=== PATIENT | male | born 1975 | race Caucasian/White ===

== ENCOUNTER → 2018-10-23 13:15 | Outpatient (CLI) | payer MEDICARE, OTHER, SELFPAY ==
[2018-10-23 13:35] LABS: Basophils % 0.3 % (0.1-2.0); Eosinophils # 0.1 K/mm3 (0.0-0.4); Eosinophils % 3.3 % (0.1-12.0); Hematocrit 37.8 % (42.0-52.0); Hemoglobin 13.6 g/dL (14.1-18.0); Lymphocytes # 0.9 K/mm3 (0.7-4.5); Lymphocytes % 25.5 % (10-50); Mean Corpuscular HGB Conc 36.1 g/dL (31.8-35.4); Mean Corpuscular Hemoglobin 33.9 pg (27.0-31.2); Mean Platelet Volume 7.9 fl (7.4-10.4); Monocytes # 0.3 K/mm3 (0.1-1.0); Monocytes % 7.7 % (1.7-9.3); Neutrophils # 2.2 K/mm3 (1.8-7.8); Neutrophils % 63.2 % (37.0-80.0); Platelet Count 66 K/mm3 (142-424); Red Blood Count 4.02 M/mm3 (4.60-6.20); Red Cell Distribution Width 15.1 % (11.5-17.5); White Blood Count 3.4 K/mm3 (4.8-10.8)
[2018-10-23 15:11] LABS: Alanine Aminotransferase 36 U/L (12-78); Albumin Level 3.3 gm/dL (3.4-5.0); Albumin/Globulin Ratio 0.9 (1.1-1.8); Alkaline Phosphatase 172 U/L (46-116); Anion Gap 14.1 mEq/L (5-15); Aspartate Amino Transferase 54 U/L (15-37); Blood Urea Nitrogen 9 mg/dL (7-18); Calcium 8.5 mg/dL (8.5-10.1); Carbon Dioxide 25 mmol/L (21.0-32.0); Chloride 104 mmol/L (98-107); Chol/HDL Ratio 1.5 (1-3.5); Cholesterol 131 mg/dL (140-200); Creatinine,Serum 0.67 mg/dL (0.70-1.30); Estimated Glomerular Filt Rate 128 ml/min (>60); GFR (African American) 155 ML/MIN (>60); Globulin 3.7 gm/dl (1.3-3.2); Glucose 126 mg/dL (74-106); HDL Cholesterol 89 mg/dL (27-67); LDL Cholesterol 37 mg/dL (0-130); Potassium 3.1 mmoL/L (3.5-5.1); Sodium 140 mmol/L (136-145); T4 (Thyroxine) 6.6 ug/dl (4.7-13.3); Thyroid Stimulating Hormone 7.12 uIU/ml (0.358-3.740); Triglycerides 26 mg/dL (30-200); VLDL Cholesterol 5 mg/dL (0-40)
[2018-10-24 08:31] LABS: Hep A Ab, IgM Negative (Negative); Hepatitis B Core Antibody IgM Negative (Negative); Hepatitis B Surface Antigen Negative (Negative)
[2018-10-24 15:04] LABS: Hepatitis C Antibody 5.2 s/co ratio (0.0-0.9)
[2018-10-24 15:06] LABS: Vitamin D 25 Hydroxy 17.5 ng/mL (30.0-100.0)
[2018-10-29 03:36] LABS: 1,25-Dihydroxy, Vitamin D-2 <10 pg/mL (.)
[2018-10-29 06:11] LABS: 1,25 Dihydroxy Vitamin D 37 pg/mL (.); 1,25-Dihydroxy, Vitamin D-3 37 pg/mL (.)
== END ==
PROVIDERS: Visit Provider Physician Assistant
DX: I10 Essential (primary) hypertension (principal); R53.83 Other fatigue; K74.60 Unspecified cirrhosis of liver; E55.9 Vitamin D deficiency, unspecified; R76.8 Other specified abnormal immunological findings in serum; R94.5 Abnormal results of liver function studies
CPT/HCPCS: 80053; 80061; 80074; 82652; 84436; 84439; 84443; 85025; 87522

== ENCOUNTER 2020-01-17 14:28 | Inpatient (IN) | payer MEDICARE, SELFPAY ==
[2020-01-17] VITALS (7 sets, daily range): BP systolic 130–163; BP diastolic 64–104; PULSE 78–100; RESP 16–20; TEMP 36.6–37.7; O2SAT 97–99; BMI 41.3; BMI 39.9
--- NOTE | 2020-01-17 14:52 | HMH.EDGENADL ---
ED Disposition Clinical Impression: Cellulitis Qualifiers: Site of cellulitis: extremity Site of cellulitis of extremity: lower extremity Laterality: right Qualified Code(s): L03.115 - Cellulitis of right lower limb Hypertension Qualifiers: Hypertension type: essential hypertension Qualified Code(s): I10 - Essential (primary) hypertension Disposition: Admitted As Inpatient Condition on Discharge: [facility] - Critical Care Critical Care Time: No Attestation: On 01/17/20, the high probability of a clinically significant, sudden or life threatening deterioration of the following system(s) required my full and direct attention, intervention and personal management. The time I documented below is in addition to time spent performing reported procedures but includes the following listed in this critical care notation. Medical Decision Making - Joshua Inquiry Pt receiving controlled substance: Yes Joshua was queried for this patient: Yes Reference #:: [id number] Risks and benefits of using a controlled substance: were discussed with pt by me Vital Signs: 01/17/20 14:29 01/17/20 15:51 01/17/20 16:24 Temperature 100 F H Temperature Source Oral Pulse Rate [Left Radial] 100 H 89 88 Respiratory Rate 18 Blood Pressure [Right Arm] 144/77 H 130/80 144/88 H Blood Pressure Mean [Right Arm] 99 96 106 Blood Pressure Source [Right Arm] Blood Pressure Position [Right Arm] Sitting Sitting 02 Sat by Pulse Oximetry 98 Oxygen Delivery Method Room Air 01/17/20 16:32 Temperature Temperature Source Pulse Rate [Left Radial] 85 Respiratory Rate 20 Blood Pressure [Right Arm] 152/86 H Blood Pressure Mean [Right Arm] 108 Blood Pressure Source [Right Arm] Automatic Cuff Blood Pressure Position [Right Arm] Sitting 02 Sat by Pulse Oximetry 97 Oxygen Delivery Method - Lab Data Lab Results 01/17/20 15:15: WBC 2.9 L, RBC 3.37 L, Hgb 11.2 L, Hct 34.3 L, MCV 101.7 H, MCH 33.1 H, MCHC 32.6, RDW 13.9, Plt Count 87 L, MPV 9.5, Neut % (Auto) 62.9, Lymph % (Auto) 23.3, [place] % (Auto) 9.3, Eos % (Auto) 3.3, Baso % (Auto) 1.1, Neut # (Auto) 1.9, Lymph # (Auto) 0.7, [place] # (Auto) 0.3, Eos # (Auto) 0.1, Baso # (Auto) 0.0 01/17/20 15:15: Sodium 118 L, Potassium 3.6, Chloride 108 H, Carbon Dioxide 27, Anion Gap -13.4 L, BUN 7 L, Creatinine 0.60 L, Estimated Creat Clear 154, Estimated GFR 145, Est GFR ( Amer) 176, Glucose 92, Calcium 8.0 L, Total Bilirubin 2.6 H, AST 103 H, ALT 47, Alkaline Phosphatase 225 H, C-Reactive Protein 40.9 H, Total Protein 8.3 H, Albumin 3.1 L, Globulin 5.2 H, Albumin/Globulin Ratio 0.6 L 01/17/20 15:15: Lactate 1.3 Result diagrams: 01/17/20 15:15 01/17/20 15:15 Orders (Tests/Meds): ED MEDICATIONS Generic Name Dose Route Start Last Admin Trade Name Freq PRN Reason Stop Dose Admin Acetaminophen 650 mg 01/17/20 17:08 Acetaminophen 325mg Tab PO 02/16/20 17:07 Q4HP PRN As Needed for Fever or Pain Lisinopril/HCTZ 1 each 01/18/20 09:00 Zestoretic 10/12.5mg Tablet PO 02/17/20 08:59 DAILY CJ Nicotine 21 mg 01/17/20 17:08 Nicoderm 21mg/24hr Patch TD 02/16/20 17:07 DAILYP PRN Nicotine Cravings Oxycodone HCl 5 mg 01/17/20 17:12 Oxyir 5mg Tablet PO 02/16/20 17:11 Q6HP PRN Severe Pain Discontinued Medications Generic Name Dose Route Start Last Admin Trade Name Freq PRN Reason Stop Dose Admin Vancomycin HCl 2,500 mg/ 250 mls @ 125 mls/hr 01/17/20 15:15 01/17/20 15:50 Sodium Chloride IV 01/17/20 17:14 125 mls/hr ONCE ONE Administration Sodium Chloride 1,000 mls @ 999 mls/hr 01/17/20 15:30 01/17/20 15:51 Sod Chlor 0.9% 1000ml Bag IV 01/17/20 16:30 999 mls/hr .Q1H1M CJ Administration Ioversol 100 ml 01/17/20 15:40 01/17/20 15:41 Rad-Optiray 350 100ml Vial IV 01/17/20 15:41 100 ml ONCE ONE Administration Protocol Ketorolac Tromethamine 15 mg 01/17/20 15:17 01/17/20 15:19 Toradol 30mg/Ml Vial IV
--- NOTE | 2020-01-17 14:56 | CT_ITS ---
PROCEDURE: CT LOWER LEG RT W CON CLINICAL HISTORY: pain, infection, concern for NSTI Pain redness and swelling COMPARISON: XR TIBIA FIBULA RT 2V from 01/17/2020 TECHNIQUE: 100 mL Optiray 350 Axial images obtained with sagittal and coronal reformats. All CT scans at the facility use one or more dose reduction, viz: automated exposure control, ma/kV adjustment per patient size (including targeted exams where dose is matched to indication, i.e. head), or iterative reconstruction technique. FINDINGS: There is diffuse subcutaneous soft tissue swelling involving the entire right leg extending from the image portion of the knee to the ankle. No localized fluid collection is evident that would indicate an abscess. No soft tissue gas apparent. No focal muscular mass. There is a small suprapatellar effusion. There are mild osteoarthritic changes at the knee joint with subarticular cystic changes at the tibial spine laterally. No fracture or dislocation. No lytic or blastic change. No evidence of radiopaque foreign body. IMPRESSION: Diffuse subcutaneous edema of the right leg with no drainable fluid collection, muscular mass or hematoma, or osteomyelitis. There are mild osteoarthritic changes at the knee. Dictated by: Jonnathan Meredith MD 01/17/2020 16:10 Electronically signed by Jonnathan Meredith MD in [place] 01/17/2020 16:10
--- NOTE | 2020-01-17 14:58 | XR_ITS ---
PROCEDURE: XR TIBIA FIBULA RT 2V CLINICAL INDICATION: leg pain COMPARISON: No exams were available for comparison FINDINGS: There is diffuse soft tissue swelling. No fracture or dislocation. No lytic or blastic change. No radiopaque foreign body. Hyperostosis is present at the medial femoral condyle region IMPRESSION: Diffuse soft tissue swelling otherwise negative Dictated by: Jonnathan Meredith MD 01/17/2020 17:02 Electronically signed by Jonnathan Meredith MD in [place] 01/17/2020 17:02
--- NOTE | 2020-01-17 15:15 | PC.NURSE ---
Pharmacy notified for vanc consult
[2020-01-17 15:46] LABS: Basophils % 1.1 % (0.1-2.0); Eosinophils # 0.1 K/mm3 (0.0-0.4); Eosinophils % 3.3 % (0.1-12.0); Hematocrit 34.3 % (42.0-52.0); Hemoglobin 11.2 g/dL (14.1-18.0); Lymphocytes # 0.7 K/mm3 (0.7-4.5); Lymphocytes % 23.3 % (10-50); Mean Corpuscular HGB Conc 32.6 g/dL (31.8-35.4); Mean Corpuscular Hemoglobin 33.1 pg (27.0-31.2); Mean Corpuscular Volume 101.7 fl (80-94); Mean Platelet Volume 9.5 fl (7.4-10.4); Monocytes # 0.3 K/mm3 (0.1-1.0); Monocytes % 9.3 % (1.7-9.3); Neutrophils # 1.9 K/mm3 (1.8-7.8); Neutrophils % 62.9 % (37.0-80.0); Platelet Count 87 K/mm3 (142-424); Red Blood Count 3.37 M/mm3 (4.60-6.20); Red Cell Distribution Width 13.9 % (11.5-17.5); White Blood Count 2.9 K/mm3 (4.8-10.8)
[2020-01-17 15:49] LABS: Chloride 108 mmol/L (98-107); Sodium 118 mmol/L (136-145)
[2020-01-17 15:50] LABS: Potassium 3.6 mmoL/L (3.5-5.1)
[2020-01-17 15:52] LABS: Alanine Aminotransferase 47 U/L (12-78); Albumin Level 3.1 g/dl (3.5-5.0); Albumin/Globulin Ratio 0.6 (1.1-1.8); Alkaline Phosphatase 225 U/L (38-126); Anion Gap -13.4 mEq/L (5-15); Aspartate Amino Transferase 103 U/L (17-59); Bilirubin,Total 2.6 mg/dl (0.2-1.3); Blood Urea Nitrogen 7 mg/dl (9-20); Carbon Dioxide 27 mmol/L (22.0-30.0); Creatinine Clearance Estimated 154 mL/min (50-200); Estimated Glomerular Filt Rate 145 ml/min (>60); GFR (African American) 176 ML/MIN (>60); Globulin 5.2 g/dL (1.3-3.2); Glucose 92 mg/dl (74-100); Lactic Acid 1.3 mmol/L (0.7-2.1); Total Protein,Serum 8.3 g/dl (6.3-8.2)
[2020-01-17 15:58] LABS: C-Reactive Protein 40.9 mg/L (0-4)
--- NOTE | 2020-01-17 16:58 | PC.NURSE ---
pt with localized redness and itching to rt hand around IV site. vanc stopped. aware
--- NOTE | 2020-01-17 17:02 | PC.NURSE ---
dr kimo meeks
--- NOTE | 2020-01-17 17:14 | PC.NURSE ---
pt recieved 143cc of vanc
--- NOTE | 2020-01-17 17:38 | PC.NURSE ---
report called to floor
--- NOTE | 2020-01-17 19:11 | PC.NURSE ---
report given to karolina
[2020-01-18 04:00] VITALS: BP 155/84; PULSE 83; RESP 20; TEMP 36.9; O2SAT 95
[2020-01-18 05:00] VITALS: BMI 40.1
[2020-01-18 07:43] VITALS: BP 146/74; PULSE 78; RESP 18; TEMP 36.8; O2SAT 97
--- NOTE | 2020-01-18 08:41 | P.CONPHA_ITS ---
- Pharmacy Consult Date: 01/18/20 Time: 08:41 Referring provider: DR. ROPER Reason for Consult:: VANCOMYCIN DOSING Allergies and ADEs:: Allergies Allergy/AdvReac Type Severity Reaction Status Date / Time codeine Allergy Hives Verified 01/18/20 08:25 guaifenesin [From Mucinex] Allergy SWELLS Verified 01/18/20 08:25 ketorolac [From Toradol] Allergy Migraine Verified 01/18/20 08:25 Home Medications:: Home Medications Medication Instructions Recorded Confirmed Type No Known Home Medications 01/17/20 01/17/20 History Height: 1.75 m Weight: 122.952 kg Laboratory Results:: Laboratory Results - last 24 hr 01/17/20 15:15: WBC 2.9 L, RBC 3.37 L, Hgb 11.2 L, Hct 34.3 L, MCV 101.7 H, MCH 33.1 H, MCHC 32.6, RDW 13.9, Plt Count 87 L, MPV 9.5, Neut % (Auto) 62.9, Lymph % (Auto) 23.3, [place] % (Auto) 9.3, Eos % (Auto) 3.3, Baso % (Auto) 1.1, Neut # (Auto) 1.9, Lymph # (Auto) 0.7, [place] # (Auto) 0.3, Eos # (Auto) 0.1, Baso # (Auto) 0.0 01/17/20 15:15: Sodium 118 L, Potassium 3.6, Chloride 108 H, Carbon Dioxide 27, Anion Gap -13.4 L, BUN 7 L, Creatinine 0.60 L, Estimated Creat Clear 154, Estimated GFR 145, Est GFR ( Amer) 176, Glucose 92, Calcium 8.0 L, Total Bilirubin 2.6 H, AST 103 H, ALT 47, Alkaline Phosphatase 225 H, C-Reactive Protein 40.9 H, Total Protein 8.3 H, Albumin 3.1 L, Globulin 5.2 H, Albumin/Globulin Ratio 0.6 L 01/17/20 15:15: Lactate 1.3 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 PATIENT RECEIVED A 2500 MG DOSE YESTERDAY AND A 1500 MG DOSE THIS MORNING. PHARMACY WILL FOLLOW DAILY AND ADJUST APPROPRIATE.
--- NOTE | 2020-01-18 09:10 | HMH.HP ---
*Admission Date: 01/18/20 *Chief complaint: swollen leg *History of present illness: this wm who has progressive swelling rt lower leg presented to ed - t removed upper rt leg in the winter and has had problems since. pt states he was just admitted last week at and given IV antibiotics. rt leg with redness, swelling noted. pt states he has also been seen at [facility] within the past few weeks 44-year-old male presenting to the emergency department with right leg pain. He has had pain for the last few weeks but it became very intense over the last 2 days. Pain is constant, throbbing. His right lower leg is red, swollen, has blisters. He now has difficulty walking. Usually ambulates with a cane. He was recently hospitalized at the [facility] and received IV antibiotics. He is not on antibiotics currently. Denies pain in his groin. Does not take blood thinners. Denies fevers, chills, nausea, vomiting. No history of DVT or PE. n summary this is a 44-year-old male presenting to the emergency department with painful redness and swelling to his right lower leg. Patient appears uncomfortable on arrival to the emergency department. He is tachycardic to 100. Differential diagnoses include cellulitis, peripheral vascular disease, abscess, osteomyelitis, myositis, deep space infection, and STI. Plan to obtain CBC, CMP, CRP, blood cultures, x-rays of the right lower extremity and reassess. We will also obtain CT scan with contrast. Given IV fluids, toradol for pain control, vancomycin. Laboratory results remarkable for pancytopenia. Hyponatremia 118. CRP elevated at 40. No other gross abnormalities. CT scan of the lower extremities shows extensive soft tissue swelling, but no osteomyelitis or gas to indicate necrotizing soft tissue infection. I personally reviewed patient's discharge summary from [facility]. Patient left AGAINST MEDICAL ADVICE on January 13. He had been receiving treatment for cellulitis with cefepime and daptomycin. Only other medications he was taking was lisinopril and metoprolol. Patient continued to have pain in his right leg. Given oral robaxin and oxycodone. Patient would benefit from hospitalization and IV antibiotics. He says that he will stay for treatment. 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, MRSA Denies:: Diabetes Mellitus Type 1, Diabetes Mellitus Type 2 *Have you ever received a pneumonia vaccine?: No *Have you received a flu vaccine this season?: Yes Other Medical History: Reports: Liver Disease Other Surgeries: Yes: Ureter Stent Amputation: No Fractures: Yes - *Social History Educational Level: Completed GED/General Educational Development Smoking Status: Light tobacco smoker Tobacco Type: cigarettes # Packs/Day (cigarettes): 1 Alcohol Intake: never Substance Use Type: former substance user, opiates, painkillers *Occupational Status:: disabled Housing: other *Travel in the last 8 weeks: None Family Hx:: Cancer, Coronary Artery Disease, Heart Attack Review of Systems - Review of Systems Review of systems:: pertinent systems reviewed and negative unless documented below - Constitutional Denies fatigue - Eyes Denies blurry vision - ENT Reports dry mouth, Denies dizziness - *Cardiovascular Denies chest pain at rest - *Respiratory Denies cough - *Gastrointestinal Denies abdominal pain - *Genitourinary Denies blood in urine - *Musculoskeletal Denies joint pain - Integumentary/Breasts Denies rash - *Neurologic Denies dizziness, Denies headache(s) - Psychiatric Denies thoughts of hurting/killing others Meds Home Medications Medication Instructions Recorded Confirmed Type No Known Home Medications 01/17/20 01/17/20 History Allergies Allergy/AdvReac Type Severity Reaction Status Date / Time codeine Allergy Hives Verified 01/18/20 08:25
--- NOTE | 2020-01-18 09:48 | P.CONPHA_ITS ---
[facility] Pharmacy VTE Monitoring - Patient Demographics Admission date: 01/17/20 Report Date: 01/18/20 Time: 09:48 Allergies/Adverse Reactions: Patient Allergies codeine Allergy (Verified 01/18/20 08:25) Hives guaifenesin [From Mucinex] Allergy (Verified 01/18/20 08:25) SWELLS ketorolac [From Toradol] Allergy (Verified 01/18/20 08:25) Migraine Height: 1.75 m Weight: 122.952 kg Patient Problems: Current Active Problems Cellulitis (Acute) Hypertension (Chronic) - VTE Risk Labs: VTE Related Lab Results Hgb 11.2 g/dL (14.1-18.0) L 01/17/20 15:15 Hct 34.3 % (42.0-52.0) L 01/17/20 15:15 Plt Count 87 K/mm3 (142-424) L 01/17/20 15:15 BUN 7 mg/dl (9-20) L 01/17/20 15:15 Creatinine 0.60 mg/dl (0.66-1.25) L 01/17/20 15:15 Estimated Creat Clear 154 mL/min (50-200) 01/17/20 15:15 Was VTE Risk Assessment Performed: Yes VTE Score: 6 VTE Risk Level: Moderate Risk - Prophylaxis VTE Prophylaxis Ordered?: Yes Types of VTE Prophylaxis: Pharmacological Pharmacologic Type: Enoxaparin
[2020-01-18 10:01] LABS: Basophils % 0.5 % (0.1-2.0); Eosinophils # 0.2 K/mm3 (0.0-0.4); Eosinophils % 8.8 % (0.1-12.0); Hematocrit 31.9 % (42.0-52.0); Hemoglobin 10.4 g/dL (14.1-18.0); Lymphocytes # 0.7 K/mm3 (0.7-4.5); Lymphocytes % 29.5 % (10-50); Mean Corpuscular HGB Conc 32.5 g/dL (31.8-35.4); Mean Corpuscular Hemoglobin 34.1 pg (27.0-31.2); Mean Corpuscular Volume 104.7 fl (80-94); Mean Platelet Volume 8.4 fl (7.4-10.4); Monocytes # 0.2 K/mm3 (0.1-1.0); Monocytes % 6.6 % (1.7-9.3); Neutrophils # 1.3 K/mm3 (1.8-7.8); Neutrophils % 54.5 % (37.0-80.0); Platelet Count 93 K/mm3 (142-424); Red Blood Count 3.05 M/mm3 (4.60-6.20); Red Cell Distribution Width 14.3 % (11.5-17.5); White Blood Count 2.4 K/mm3 (4.8-10.8)
[2020-01-18 10:09] LABS: Chloride 106 mmol/L (98-107); Potassium 4.1 mmoL/L (3.5-5.1); Sodium 136 mmol/L (136-145)
[2020-01-18 10:12] LABS: Blood Urea Nitrogen 8 mg/dl (9-20); Creatinine Clearance Estimated 128 mL/min (50-200); Estimated Glomerular Filt Rate 121 ml/min (>60); GFR (African American) 147 ML/MIN (>60)
[2020-01-18 10:13] LABS: Anion Gap 5.1 mEq/L (5-15); Calcium 7.8 mg/dl (8.4-10.2); Carbon Dioxide 29 mmol/L (22.0-30.0); Glucose 150 mg/dl (74-100)
[2020-01-18 16:00] VITALS: BP 140/73; PULSE 78; RESP 20; TEMP 37.1; O2SAT 96
[2020-01-18 20:45] VITALS: O2SAT 99
[2020-01-18 21:06] VITALS: BP 112/79; PULSE 76; RESP 20; TEMP 36.6; O2SAT 99
[2020-01-18 22:36] LABS: Vancomycin,Trough 12.9 ug/mL (5.0-10.0)
[2020-01-19 04:00] VITALS: BP 163/85; PULSE 82; RESP 18; TEMP 36.6; O2SAT 96
[2020-01-19 05:06] VITALS: BMI 40.0
--- NOTE | 2020-01-19 05:15 | PC.NURSE ---
A&OX4. PT HAS TOLERATED ROOM AIR WELL THROUGHOUT SHIFT. INSPIRATORY AND EXPIRATORY WHEEZES NOTED THROUGHOUT. NO COUGH NOTED. RESPIRATIONS REGULAR AND UNLABORED. HEART RATE REGULAR. REDNESS AND +1 PITTING EDEMA NOTED TO RLE. +2 PULSES NOTED THROUGHOUT. HAND BUSINESS INITIATIVES MANAGER EQUAL. PUPILS BRISK AND REACTIVE TO LIGHT. ACTIVE BOWEL SOUNDS HEARD IN ALL 4 QUADRANTS. SOFT AND NONTENDER ABDOMEN. PT HAS HAD SEVERAL EPISODES OF INTERMITTENT PAIN. PT WAS ADMINISTERED OXYCODONE PER OCT. ON REASSESSMENT, PT WAS RESTING W EYES CLOSED. PT HAS USED THE URINAL THROUGHOUT SHIFT AND CLEAR YELLOW URINE HAS BEEN NOTED. PT IS CURRENTLY RESTING IN BED. BED IN LOWEST POSITION. CALL LIGHT WITHIN REACH. VSS. NO CONCERNS AT THIS TIME. WILL CONTINUE TO MONITOR.
[2020-01-19 07:41] LABS: Basophils % 0.6 % (0.1-2.0); Eosinophils # 0.2 K/mm3 (0.0-0.4); Eosinophils % 6.8 % (0.1-12.0); Hematocrit 31.6 % (42.0-52.0); Hemoglobin 10.5 g/dL (14.1-18.0); Lymphocytes # 0.6 K/mm3 (0.7-4.5); Lymphocytes % 28.5 % (10-50); Mean Corpuscular HGB Conc 33.3 g/dL (31.8-35.4); Mean Platelet Volume 8.9 fl (7.4-10.4); Monocytes # 0.2 K/mm3 (0.1-1.0); Monocytes % 7.9 % (1.7-9.3); Neutrophils # 1.2 K/mm3 (1.8-7.8); Neutrophils % 56.2 % (37.0-80.0); Platelet Count 98 K/mm3 (142-424); Red Cell Distribution Width 14.6 % (11.5-17.5); White Blood Count 2.2 K/mm3 (4.8-10.8)
[2020-01-19 07:45] VITALS: BP 133/58; PULSE 81; RESP 17; TEMP 36.9; O2SAT 95
[2020-01-19 08:00] VITALS: O2SAT 95
[2020-01-19 08:02] LABS: Alanine Aminotransferase 35 U/L (12-78); Albumin Level 2.5 g/dl (3.5-5.0); Alkaline Phosphatase 208 U/L (38-126); Aspartate Amino Transferase 75 U/L (17-59); Bilirubin,Direct 0.5 mg/dl (0.0-0.4); Bilirubin,Indirect 0.7 mg/dL (0.0-0.9); Bilirubin,Total 1.2 mg/dl (0.2-1.3); Bilirubin,Unconjugated 0.7 mg/dL (0.0-1.1); Total Protein,Serum 7.1 g/dl (6.3-8.2)
--- NOTE | 2020-01-19 09:48 | HMH.ACPN2 ---
Internal Medicine - PN: Subj *Date: 01/19/20 *Time: 09:48 Interval history: doing some better this am -labs reviewed Exam Vital signs and Labs for Last 24 Hours: Temp Pulse Resp BP Pulse Ox 98.4 F 81 17 133/58 L 95 01/19/20 07:45 01/19/20 07:45 01/19/20 07:45 01/19/20 07:45 01/19/20 07:45 Laboratory Results - last 24 hr 01/18/20 09:08: WBC 2.4 L, RBC 3.05 L, Hgb 10.4 L, Hct 31.9 L, MCV 104.7 H, MCH 34.1 H, MCHC 32.5, RDW 14.3, Plt Count 93 L, MPV 8.4, Neut % (Auto) 54.5, Lymph % (Auto) 29.5, [place] % (Auto) 6.6, Eos % (Auto) 8.8, Baso % (Auto) 0.5, Neut # (Auto) 1.3 L, Lymph # (Auto) 0.7, [place] # (Auto) 0.2, Eos # (Auto) 0.2, Baso # (Auto) 0.0 01/18/20 09:08: Sodium 136, Potassium 4.1, Chloride 106, Carbon Dioxide 29, Anion Gap 5.1, BUN 8 L, Creatinine 0.70, Estimated Creat Clear 128, Estimated GFR 121, Est GFR ( Amer) 147, Glucose 150 H D, Calcium 7.8 L 01/18/20 21:35: Vancomycin Trough 12.9 H 01/19/20 07:10: WBC 2.2 L, RBC 3.10 L, Hgb 10.5 L, Hct 31.6 L, MCV 102.0 H, MCH 34.0 H, MCHC 33.3, RDW 14.6, Plt Count 98 L, MPV 8.9, Neut % (Auto) 56.2, Lymph % (Auto) 28.5, [place] % (Auto) 7.9, Eos % (Auto) 6.8, Baso % (Auto) 0.6, Neut # (Auto) 1.2 L, Lymph # (Auto) 0.6 L, [place] # (Auto) 0.2, Eos # (Auto) 0.2, Baso # (Auto) 0.0 01/19/20 07:10: Total Bilirubin 1.2, Direct Bilirubin 0.5 H, Conjugated Bilirubin 0.0, Indirect Bilirubin 0.7, Unconjugated Bilirubin 0.7, AST 75 H D, ALT 35 D, Alkaline Phosphatase 208 H, Total Protein 7.1, Albumin 2.5 L I & O for Last 24 hours: Intake & Output 01/16/20 01/17/20 01/18/20 01/19/20 11:59 11:59 11:59 11:59 Intake Total 1160 / 1160 3202 / 3202 Output Total 1000 / 1000 4115 / 4115 Balance 160 / 160 -913 / -913 Weight 271 lb 1 oz 270 lb 2 oz - Constitutional no acute distress, obese - *Routine HEENT Exam Head: Present: normocephalic Eye: Present: EOMI, PERRL ENT: Present: mucous membranes dry - *Routine Neck Exam Present: supple. Absent: JVD - *Routine Respiratory Exam Present: decreased breath sounds - *Routine Cardiovascular Exam Present: RRR, murmur - *Routine Abdominal Exam Present: soft - *Routine Extremities Exam Present: calf tenderness Comments: changes lower ext rt more than left - *Routine Skin Exam Present: erythema - *Routine Neurological Exam Present: alert, CN II-XII intact - Routine Psychiatric Exam Absent: good insight Assessment and Plan (1) Cellulitis Current visit: Yes Status: Acute Qualifiers: Site of cellulitis: extremity Site of cellulitis of extremity: lower extremity Laterality: right Qualified Code(s): L03.115 - Cellulitis of right lower limb Category: Medical Code(s): L03.90 - Cellulitis, unspecified (2) Obesity Current visit: Yes Status: Acute Qualifiers: Obesity type: due to excess calories Obesity classification: adult class 3 (BMI >= 40) Serious obesity comorbidity presence: with serious comorbidity Body mass index: BMI 40.0-44.9 Qualified Code(s): E66.01 - Morbid (severe) obesity due to excess calories; Z68.41 - Body mass index (BMI) 40.0-44.9, adult Category: Medical Code(s): E66.9 - Obesity, unspecified (3) Pancytopenia Current visit: Yes Status: Acute Category: Medical Code(s): D61.818 - Other pancytopenia (4) Hyponatremia Current visit: Yes Status: Acute Category: Medical Code(s): E87.1 - Hypo-osmolality and hyponatremia
--- NOTE | 2020-01-19 11:06 | HMH.PHACONS ---
- Pharmacy Consult Date: 01/19/20 Time: 11:06 Referring provider: DR. ROPER Reason for Consult:: VANCOMYCIN TROUGH LEVEL Allergies and ADEs:: Allergies Allergy/AdvReac Type Severity Reaction Status Date / Time codeine Allergy Hives Verified 01/18/20 08:25 guaifenesin [From Mucinex] Allergy SWELLS Verified 01/18/20 08:25 ketorolac [From Toradol] Allergy Migraine Verified 01/18/20 08:25 Home Medications:: Home Medications Medication Instructions Recorded Confirmed Type No Known Home Medications 01/17/20 01/17/20 History Height: 1.75 m Weight: 122.527 kg Laboratory Results:: Laboratory Results - last 24 hr 01/18/20 21:35: Vancomycin Trough 12.9 H 01/19/20 07:10: WBC 2.2 L, RBC 3.10 L, Hgb 10.5 L, Hct 31.6 L, MCV 102.0 H, MCH 34.0 H, MCHC 33.3, RDW 14.6, Plt Count 98 L, MPV 8.9, Neut % (Auto) 56.2, Lymph % (Auto) 28.5, [place] % (Auto) 7.9, Eos % (Auto) 6.8, Baso % (Auto) 0.6, Neut # (Auto) 1.2 L, Lymph # (Auto) 0.6 L, [place] # (Auto) 0.2, Eos # (Auto) 0.2, Baso # (Auto) 0.0 01/19/20 07:10: Total Bilirubin 1.2, Direct Bilirubin 0.5 H, Conjugated Bilirubin 0.0, Indirect Bilirubin 0.7, Unconjugated Bilirubin 0.7, AST 75 H D, ALT 35 D, Alkaline Phosphatase 208 H, Total Protein 7.1, Albumin 2.5 L 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9 Qualified Code(s): E66.01 - Morbid (severe) obesity due to excess calories; Z68.41 - Body mass index (BMI) 40.0-44.9, adult Category: Medical Code(s): E66.9 - Obesity, unspecified (3) Pancytopenia Current visit: Yes Status: Acute Category: Medical Code(s): D61.818 - Other pancytopenia (4) Hyponatremia Current visit: Yes Status: Acute Category: Medical Code(s): E87.1 - Hypo-osmolality and hyponatremia - Assessment and plan all Dx Assessment and Plan for all problems:: BASED ON PATIENT FACTORS AND VANCOMYCIN TROUGH LEVEL, RECOMMEND CONTINUING VANCOMYCIN 2GM IV Q8H. PHARMACY WILL CONTINUE TO MONITOR DAILY AND ADJUST APPROPRIATE.
[2020-01-19 15:57] VITALS: BP 130/62; PULSE 71; RESP 17; TEMP 36.7; O2SAT 99
--- NOTE | 2020-01-19 18:46 | PC.NURSE ---
NO ACUTE CHANGES THIS SHIFT. PT UP TO CHAIR THIS SHIFT. PAIN MEDS ADMINISTERED PER MAR. NO DISTRESS NOTED. VSS. WILL CONTINUE TO MONITOR
[2020-01-19 20:05] VITALS: BP 161/76; PULSE 78; RESP 17; TEMP 36.9; O2SAT 99
--- NOTE | 2020-01-20 03:40 | PC.NURSE ---
A&OX4. PT TOLERATING RA WELL. PT HAS C/O PAIN IN RLE X2 THIS SHIFT, TREATED WITH PRN PAIN MED PER [facility]. ON REASSESSMENT, PT FOUND RESTING IN BED WITH EYES CLOSED. PT BLE FOUND TO BE RED, WARM, AND PEELING. EDEMA PRESENT. VERY PAINFUL TO TOUCH. PT USING URINAL TO VOID. PT HAS HAD A VERY LARGE APPETITE, TOLERATING FOOD WELL. NO OTHER COMPLAINTS THUS FAR, VSS WILL CONTINUE TO MONITOR.
[2020-01-20 03:50] VITALS: BP 143/74; PULSE 78; RESP 14; TEMP 36.9; O2SAT 96
[2020-01-20 06:41] VITALS: BMI 39.4
[2020-01-20 07:44] LABS: Basophils % 0.4 % (0.1-2.0); Eosinophils # 0.2 K/mm3 (0.0-0.4); Eosinophils % 7.8 % (0.1-12.0); Hematocrit 32.7 % (42.0-52.0); Hemoglobin 11.1 g/dL (14.1-18.0); Lymphocytes # 0.7 K/mm3 (0.7-4.5); Lymphocytes % 27.2 % (10-50); Mean Corpuscular Hemoglobin 34.6 pg (27.0-31.2); Mean Corpuscular Volume 101.7 fl (80-94); Mean Platelet Volume 8.7 fl (7.4-10.4); Monocytes # 0.2 K/mm3 (0.1-1.0); Monocytes % 7.4 % (1.7-9.3); Neutrophils # 1.5 K/mm3 (1.8-7.8); Neutrophils % 57.1 % (37.0-80.0); Platelet Count 124 K/mm3 (142-424); Red Blood Count 3.22 M/mm3 (4.60-6.20); Red Cell Distribution Width 14.4 % (11.5-17.5); White Blood Count 2.6 K/mm3 (4.8-10.8)
[2020-01-20 08:00] VITALS: BP 157/92; PULSE 81; RESP 18; TEMP 36.8; O2SAT 95
--- NOTE | 2020-01-20 08:34 | CA_ITS ---
APPROVED REPORT Bilateral Lower Extremity Venous Study for DVT. Claim Taker: RAJNI PuenteT Indications Lower Extremity Pain: Right Lower Extremity Edema: Bilateral History of Smoking RT LEG CELLULITIS Risk Factors Obesity Bed Rest History of Smoking Vein Imaging CFV (R): compressive, spontaneous, phasic, augmentation FEM (R): compressive, spontaneous, phasic, augmentation POP (R): compressive, spontaneous, phasic, augmentation PTV (R): Compressible GSV (R): Compressible Peroneals (R):Compressible GAS (R): Compressible CFV (L): compressive, spontaneous, phasic, augmentation FEM (L): compressive, spontaneous, phasic, augmentation POP (L): compressive, spontaneous, phasic, augmentation PTV (L): Compressible GSV (L): Compressible Peroneals (L):Compressible GAS (L): Compressible Conclusion Study suggests no evidence of DVT of the bilateral lower extremities. Study suggests no evidence of SVT of the bilateral lower extremities. Electronically signed by : Jonnathan Meredith MD 01/20/2020 19:38:12
[2020-01-20 11:25] LABS: POC Glucose,Bedside 101 (70-110)
--- NOTE | 2020-01-20 11:28 | HMH.PTWOUND ---
Rehab Inpt Wound Evaluation Rehab IP Wound Evaluation Start: 01/20/20 10:55 Freq: ONCE Status: Active Protocol: Document 01/20/20 11:26 [email or web address] (Rec: 01/20/20 11:28 [email or web address] [id number]) Rehab PT Wound Assessment Subjective Subjective This is the initial IP WOund evaluation for Vinod Ragland. Pt is a 44 y/o male admitted to [facility] for cellulitis of RLE Wound Right Lower Leg Wound Type cellulitis Wound Bed Appearance Peeling Skin Percentage Granulated (%) 100 Surrounding Tissue Appearance [place] Surrounding Tissue Temperature Warm Wound Drainage Description None Drainage Amount None Drainage Odor No Odor Dressing Status Open to Air Primary Dressing Unna Boot Plan/Recommendation Comment Nsg to apply and change unna boot Q72 - no open wounds - no debridement necessary - nsg to follow and provide wound care Eval Complexity Eval Charge Codes 70055 - Moderate Complexity PHYSICIAN CERTIFICATION: I certify the specified therapy services for Vinod Ragland are required, authorized, and reviewed every 30 days.
--- NOTE | 2020-01-20 12:33 | HMH.ACPN2 ---
Internal Medicine - PN: Subj *Date: 01/21/20 *Time: 07:13 Interval history: some better but has persistent reddness and swelling rt lower ext Exam Vital signs and Labs for Last 24 Hours: Temp Pulse Resp BP Pulse Ox 98.3 F 81 18 157/92 H 95 01/20/20 08:00 01/20/20 08:00 01/20/20 08:00 01/20/20 08:00 01/20/20 08:00 Laboratory Results - last 24 hr 01/20/20 07:31: WBC 2.6 L, RBC 3.22 L, Hgb 11.1 L, Hct 32.7 L, MCV 101.7 H, MCH 34.6 H, MCHC 34.0, RDW 14.4, Plt Count 124 L D, MPV 8.7, Neut % (Auto) 57.1, Lymph % (Auto) 27.2, [place] % (Auto) 7.4, Eos % (Auto) 7.8, Baso % (Auto) 0.4, Neut # (Auto) 1.5 L, Lymph # (Auto) 0.7, [place] # (Auto) 0.2, Eos # (Auto) 0.2, Baso # (Auto) 0.0 01/20/20 11:06: POC Glucose 101 I & O for Last 24 hours: Intake & Output 01/18/20 01/19/20 01/20/20 01/21/20 11:59 11:59 11:59 11:59 Intake Total 1160 / 1160 3822 / 3822 3203 / 3203 Output Total 1000 / 1000 4915 / 4915 4350 / 4350 Balance 160 / 160 -1093 / -1093 -1147 / -1147 Weight 271 lb 1 oz 270 lb 2 oz 266 lb 4 oz Microbiology Reports for the Last 24 Hours: Microbiology 01/17/20 15:15 Blood Blood Culture - Preliminary NO GROWTH AFTER 48 HOURS 01/17/20 15:15 Blood Blood Culture - Preliminary NO GROWTH AFTER 48 HOURS - Constitutional no acute distress - *Routine HEENT Exam Head: Present: normocephalic Eye: Present: EOMI, PERRL ENT: Present: mucous membranes dry - *Routine Neck Exam Present: supple - *Routine Respiratory Exam Present: CTA bilaterally - *Routine Cardiovascular Exam Present: RRR - *Routine Abdominal Exam Present: soft - *Routine Extremities Exam Present: calf tenderness, Scott's sign - *Routine Skin Exam Present: erythema. Absent: petechiae - *Routine Neurological Exam Present: alert, CN II-XII intact - Routine Psychiatric Exam Present: normal affect Assessment and Plan (1) Cellulitis Current visit: Yes Status: Acute Qualifiers: Site of cellulitis: extremity Site of cellulitis of extremity: lower extremity Laterality: right Qualified Code(s): L03.115 - Cellulitis of right lower limb Category: Medical Code(s): L03.90 - Cellulitis, unspecified (2) Obesity Current visit: Yes Status: Acute Qualifiers: Obesity type: due to excess calories Obesity classification: adult class 3 (BMI >= 40) Serious obesity comorbidity presence: with serious comorbidity Body mass index: BMI 40.0-44.9 Qualified Code(s): E66.01 - Morbid (severe) obesity due to excess calories; Z68.41 - Body mass index (BMI) 40.0-44.9, adult Category: Medical Code(s): E66.9 - Obesity, unspecified (3) Pancytopenia Current visit: Yes Status: Acute Category: Medical Code(s): D61.818 - Other pancytopenia (4) Hyponatremia Current visit: Yes Status: Acute Category: Medical Code(s): E87.1 - Hypo-osmolality and hyponatremia
[2020-01-20 13:33] LABS: Anion Gap 8.6 mEq/L (5-15); Blood Urea Nitrogen 7 mg/dl (9-20); Calcium 8.4 mg/dl (8.4-10.2); Carbon Dioxide 33 mmol/L (22.0-30.0); Chloride 98 mmol/L (98-107); Creatinine Clearance Estimated 263 mL/min (50-200); Estimated Glomerular Filt Rate 145 ml/min (>60); GFR (African American) 176 ML/MIN (>60); Glucose 190 mg/dl (74-100); Potassium 3.6 mmoL/L (3.5-5.1); Sodium 136 mmol/L (136-145)
[2020-01-20 16:00] VITALS: BP 163/96; PULSE 87; RESP 18; TEMP 36.7; O2SAT 97
--- NOTE | 2020-01-20 19:11 | INFXCTL.NOTE ---
report given to samir
[2020-01-20 20:00] VITALS: BP 153/83; PULSE 103; RESP 18; TEMP 36.6; O2SAT 95
--- NOTE | 2020-01-20 22:36 | PC.NURSE ---
THIS RN TOOK OVER CARE AT 1630. PATIENT A&OX4, LUNGS WHEEZING NOTED, KRISTOPHER PULSES EQUAL. BLE WRAPPED IN ULNA BOOT AND COVERED IN COBAN. NO NEEDS OR CONCERNS AT THIS TIME.
[2020-01-21 04:00] VITALS: BP 168/87; PULSE 100; RESP 16; TEMP 36.7; O2SAT 99
--- NOTE | 2020-01-21 04:22 | PC.NURSE ---
UNNA BOOTS BLE; PT. REPORTED PAIN X1 THIS SHIFT; TX PER MAR; EFFECTIVENESS REPORTED. ABD TENDER IN ALL QUADS WITH ACTIVE BOWEL SOUNDS. EXPIRATORY WHEEZES NOTED T/O BILAT LUNGS. PT. HAS NOT C/O N/V/D, SOA OR DIZZINESS THIS SHIFT.
[2020-01-21 05:19] VITALS: BMI 39.4
[2020-01-21 07:44] VITALS: BP 150/82; PULSE 98; RESP 19; TEMP 36.6; O2SAT 96
[2020-01-21 08:04] VITALS: RESP 20
[2020-01-21 08:22] LABS: Basophils % 0.6 % (0.1-2.0); Eosinophils # 0.2 K/mm3 (0.0-0.4); Eosinophils % 8.2 % (0.1-12.0); Hematocrit 32.6 % (42.0-52.0); Hemoglobin 10.8 g/dL (14.1-18.0); Lymphocytes # 0.5 K/mm3 (0.7-4.5); Mean Corpuscular HGB Conc 33.1 g/dL (31.8-35.4); Mean Corpuscular Hemoglobin 33.6 pg (27.0-31.2); Mean Corpuscular Volume 101.7 fl (80-94); Mean Platelet Volume 8.1 fl (7.4-10.4); Monocytes # 0.2 K/mm3 (0.1-1.0); Monocytes % 9.7 % (1.7-9.3); Neutrophils # 1.5 K/mm3 (1.8-7.8); Neutrophils % 61.4 % (37.0-80.0); Platelet Count 109 K/mm3 (142-424); Red Cell Distribution Width 14.4 % (11.5-17.5); White Blood Count 2.5 K/mm3 (4.8-10.8)
[2020-01-21 08:27] LABS: Chloride 104 mmol/L (98-107); Potassium 3.6 mmoL/L (3.5-5.1); Sodium 135 mmol/L (136-145)
[2020-01-21 08:30] LABS: Anion Gap 2.6 mEq/L (5-15); Blood Urea Nitrogen 8 mg/dl (9-20); Calcium 7.9 mg/dl (8.4-10.2); Carbon Dioxide 32 mmol/L (22.0-30.0); Creatinine Clearance Estimated 263 mL/min (50-200); Estimated Glomerular Filt Rate 145 ml/min (>60); GFR (African American) 176 ML/MIN (>60); Glucose 194 mg/dl (74-100)
[2020-01-21 09:57] LABS: Peripheral Smear Review Scanned Result
[2020-01-21 11:49] VITALS: RESP 18
--- NOTE | 2020-01-21 11:54 | P.PN_ITS ---
Internal Medicine - PN: Subj *Date: 01/21/20 *Time: 08:10 Exam Vital signs and Labs for Last 24 Hours: Temp Pulse Resp BP Pulse Ox 97.8 F 98 H 18 150/82 H 96 01/21/20 07:44 01/21/20 07:44 01/21/20 11:49 01/21/20 07:44 01/21/20 07:44 Laboratory Results - last 24 hr 01/20/20 12:58: Sodium 136, Potassium 3.6, Chloride 98, Carbon Dioxide 33 H, Anion Gap 8.6, BUN 7 L, Creatinine 0.60 L, Estimated Creat Clear 263, Estimated GFR 145, Est GFR ( Amer) 176, Glucose 190 H, Calcium 8.4 01/21/20 08:15: WBC 2.5 L, RBC 3.20 L, Hgb 10.8 L, Hct 32.6 L, MCV 101.7 H, MCH 33.6 H, MCHC 33.1, RDW 14.4, Plt Count 109 L, MPV 8.1, Neut % (Auto) 61.4, Lymph % (Auto) 20.0, [place] % (Auto) 9.7 H, Eos % (Auto) 8.2, Baso % (Auto) 0.6, Neut # (Auto) 1.5 L, Lymph # (Auto) 0.5 L, [place] # (Auto) 0.2, Eos # (Auto) 0.2, Baso # (Auto) 0.0 01/21/20 08:15: Sodium 135 L, Potassium 3.6, Chloride 104, Carbon Dioxide 32 H, Anion Gap 2.6 L, BUN 8 L, Creatinine 0.60 L, Estimated Creat Clear 263, Estimated GFR 145, Est GFR ( Amer) 176, Glucose 194 H, Calcium 7.9 L I & O for Last 24 hours: Intake & Output 01/18/20 01/19/20 01/20/20 01/21/20 23:59 23:59 23:59 23:59 Intake Total 2544 / 2544 3558 / 3558 3423 / 3423 360 / 360 Output Total 2600 / 2940 5965 / 5965 6250 / 7100 3500 / 3500 Balance -56 / -396 -2407 / -2407 -2827 / -3677 -3140 / -3140 Weight 271 lb 1 oz 270 lb 2 oz 266 lb 4 oz 266 lb 4.001 oz Assessment and Plan (1) Cellulitis Current visit: Yes Status: Acute Qualifiers: Site of cellulitis: extremity Site of cellulitis of extremity: lower extremity Laterality: right Qualified Code(s): L03.115 - Cellulitis of right lower limb Category: Medical Code(s): L03.90 - Cellulitis, unspecified (2) Obesity Current visit: Yes Status: Acute Qualifiers: Obesity type: due to excess calories Obesity classification: adult class 3 (BMI >= 40) Serious obesity comorbidity presence: with serious comorbidity Body mass index: BMI 40.0-44.9 Qualified Code(s): E66.01 - Morbid (severe) obesity due to excess calories; Z68.41 - Body mass index (BMI) 40.0-44.9, adult Category: Medical Code(s): E66.9 - Obesity, unspecified (3) Pancytopenia Current visit: Yes Status: Acute Category: Medical Code(s): D61.818 - Other pancytopenia (4) Hyponatremia Current visit: Yes Status: Acute Category: Medical Code(s): E87.1 - Hypo- osmolality and hyponatremia
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
== END 2020-01-21 15:20 | disposition home or self-care (01) | DRG 603 ==
LOC: ER 14:42 → 2ND 17:25
PROVIDERS: Admitting Provider Family Medicine; Emergency Provider Emergency Medicine; PCP Nurse Practitioner Family; Visit Provider Emergency Medicine
DX: L03.115 Cellulitis of right lower limb (principal); E87.1 Hypo-osmolality and hyponatremia; D61.818 Other pancytopenia; I10 Essential (primary) hypertension; Z72.0 Tobacco use; Z88.8 Allergy status to other drugs, medicaments and biological substances
CPT/HCPCS: 36415; 73590; 73701; 80048; 80053; 80076; 80202; 82962; 83605; 85025; 86140; 87040; 93970; 96365; 96367; 96375; 99284; J0878; J2405; J3370; Q9967

== ENCOUNTER 2020-03-04 17:08 | Inpatient (IN) | payer MEDICARE, SELFPAY ==
[2020-03-04] VITALS (9 sets, daily range): BP systolic 123–172; BP diastolic 59–91; PULSE 72–87; RESP 16–20; TEMP 36.7–37.1; O2SAT 98–100; BMI 38.4; BMI 40.1
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
--- NOTE | 2020-03-04 20:00 | PC.NURSE ---
IV assess never established and lab never received blood work from day shift nurse.
[2020-03-04 20:46] LABS: Basophils % 0.7 % (0.1-2.0); Eosinophils # 0.3 K/mm3 (0.0-0.4); Eosinophils % 7.1 % (0.1-12.0); Hematocrit 36.5 % (42.0-52.0); Hemoglobin 12.3 g/dL (14.1-18.0); Lymphocytes # 1.1 K/mm3 (0.7-4.5); Lymphocytes % 21.6 % (10-50); Mean Corpuscular HGB Conc 33.8 g/dL (31.8-35.4); Mean Corpuscular Hemoglobin 33.8 pg (27.0-31.2); Mean Corpuscular Volume 100.1 fl (80-94); Mean Platelet Volume 8.2 fl (7.4-10.4); Monocytes # 0.3 K/mm3 (0.1-1.0); Monocytes % 5.7 % (1.7-9.3); Neutrophils # 3.1 K/mm3 (1.8-7.8); Neutrophils % 64.9 % (37.0-80.0); Platelet Count 96 K/mm3 (142-424); Red Blood Count 3.64 M/mm3 (4.60-6.20); Red Cell Distribution Width 15.6 % (11.5-17.5); White Blood Count 4.8 K/mm3 (4.8-10.8)
[2020-03-04 20:50] LABS: Chloride 99 mmol/L (98-107)
[2020-03-04 20:51] LABS: Potassium 3.5 mmoL/L (3.5-5.1); Sodium 133 mmol/L (136-145)
[2020-03-04 20:53] LABS: Alanine Aminotransferase 43 U/L (12-78); Alkaline Phosphatase 186 U/L (38-126); Anion Gap 4.5 mEq/L (5-15); Aspartate Amino Transferase 75 U/L (17-59); Bilirubin,Total 2.7 mg/dl (0.2-1.3); Blood Urea Nitrogen 9 mg/dl (9-20); Carbon Dioxide 33 mmol/L (22.0-30.0); Creatinine Clearance Estimated 308 mL/min (50-200); Estimated Glomerular Filt Rate 179 ml/min (>60); GFR (African American) 217 ML/MIN (>60); Lactic Acid 1.2 mmol/L (0.7-2.1)
[2020-03-04 20:54] LABS: Albumin Level 3.1 g/dl (3.5-5.0); Albumin/Globulin Ratio 0.7 (1.1-1.8); Calcium 8.5 mg/dl (8.4-10.2); Globulin 4.3 g/dL (1.3-3.2); Glucose 95 mg/dl (74-100); Total Protein,Serum 7.4 g/dl (6.3-8.2)
--- NOTE | 2020-03-04 20:54 | PC.NURSE ---
Caity dosing by Milagros in Pharmacy
[2020-03-04 20:59] LABS: C-Reactive Protein 53.6 mg/L (0-4)
[2020-03-04 21:32] LABS: Erythrocyte Sedimentation Rate 81 mm/hr (0-15)
--- NOTE | 2020-03-04 22:00 | PC.NURSE ---
PT ARRIVED TO THE FLOOR VIA W/C FROM ED AT 2200.
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
[2020-03-05] VITALS (22 sets, daily range): BP systolic 127–164; BP diastolic 68–95; PULSE 76–96; RESP 16–18; TEMP 36.5–36.8; O2SAT 92–99; BMI 40.7
--- NOTE | 2020-03-05 04:19 | PC.NURSE ---
A&OX4. PT TOLERATING RA WELL THIS SHIFT. PT HAS NOT C/O PAIN, NA/VO, OR SOA THIS SHIFT. PT HAS RESTED COMFORTABLY IN BED, TOLERATED SNACKS WELL. MULTIPLE WOUNDS NOTED T/O PT BODY. WOUNDS DRESSED, CDI. PICTURES ON PT CHART. PT BLE REDDENED AND WARM TO TOUCH. NO C/O THUS FAR, VSS WILL CONTINUE TO MONITOR.
--- NOTE | 2020-03-05 07:24 | P.CONPHA_ITS ---
[facility] Pharmacy VTE Monitoring - Patient Demographics Admission date: 03/04/20 Report Date: 03/05/20 Time: 07:24 Allergies/Adverse Reactions: Patient Allergies codeine Allergy (Verified 01/18/20 08:25) Hives guaifenesin [From Mucinex] Allergy (Verified 01/18/20 08:25) SWELLS ketorolac [From Toradol] Allergy (Verified 01/18/20 08:25) Migraine Height: 1.75 m Weight: 124.8 kg Patient Problems: Current Active Problems Cellulitis (Acute) - VTE Risk Labs: VTE Related Lab Results Hgb 12.3 g/dL (14.1-18.0) L 03/04/20 20:35 Hct 36.5 % (42.0-52.0) L 03/04/20 20:35 Plt Count 96 K/mm3 (142-424) L 03/04/20 20:35 BUN 9 mg/dl (9-20) 03/04/20 20:35 Creatinine 0.50 mg/dl (0.66-1.25) L 03/04/20 20:35 Estimated Creat Clear 308 mL/min (50-200) H 03/04/20 20:35 VTE Score: 5 Clinical Trial Participant: No - Prophylaxis VTE Prophylaxis Ordered?: Yes Types of VTE Prophylaxis: TEDS Knee High
--- NOTE | 2020-03-05 07:30 | HMH.PHAINT ---
MEDICATION RECONCILIATION COMPLETED USING EXTERNAL FILL HISTORY.
--- NOTE | 2020-03-05 08:14 | PC.NURSE ---
Contacted specialty clinic about consult on pt. spoke with
--- NOTE | 2020-03-05 08:16 | P.CONPHA_ITS ---
- Pharmacy Consult Date: 03/05/20 Time: 08:17 Referring provider: DR. ROPER Reason for Consult:: BASED ON PATIENT FACTORS, RECOMMEND DOSING VANCOMYCIN AT 2,000MG IV EVERY 8 HOURS. WILL OBTAIN TROUGH LEVEL PRIOR TO FOURTH DOSE AND ADJUST APPROPRIATE AT THAT POINT. -SILVA BOWLES PHARMD Allergies and ADEs:: Allergies Allergy/AdvReac Type Severity Reaction Status Date / Time codeine Allergy Hives Verified 01/18/20 08:25 guaifenesin [From Mucinex] Allergy SWELLS Verified 01/18/20 08:25 ketorolac [From Toradol] Allergy Migraine Verified 01/18/20 08:25 Home Medications:: Home Medications Medication Instructions Recorded Confirmed Type Lisinopril/Hydrochlorothiazide 1 tab PO DAILY 03/04/20 03/05/20 History [Zestoretic 10/12.5mg tablet] Metoprolol Succinate [Metoprolol 50 mg PO DAILY 03/05/20 03/05/20 History Succinate 50mg Tablet*] Height: 1.75 m Weight: 124.8 kg Laboratory Results:: Laboratory Results - last 24 hr 03/04/20 20:35: WBC 4.8, RBC 3.64 L, Hgb 12.3 L, Hct 36.5 L, MCV 100.1 H, MCH 33.8 H, MCHC 33.8, RDW 15.6, Plt Count 96 L, MPV 8.2, Neut % (Auto) 64.9, Lymph % (Auto) 21.6, [place] % (Auto) 5.7, Eos % (Auto) 7.1, Baso % (Auto) 0.7, Neut # (Auto) 3.1, Lymph # (Auto) 1.1, [place] # (Auto) 0.3, Eos # (Auto) 0.3, Baso # (Auto) 0.0, ESR 81 H 03/04/20 20:35: Sodium 133 L, Potassium 3.5, Chloride 99, Carbon Dioxide 33 H, Anion Gap 4.5 L, BUN 9, Creatinine 0.50 L, Estimated Creat Clear 308 H, Estimated GFR 179, Est GFR ( Amer) 217, Glucose 95, Calcium 8.5, Total Bilirubin 2.7 H, AST 75 H, ALT 43, Alkaline Phosphatase 186 H, C-Reactive Protein 53.6 H, Total Protein 7.4, Albumin 3.1 L, Globulin 4.3 H, Albumin/Globulin Ratio 0.7 L 03/04/20 20:35: Lactate 1.2 Medical History: Reports:: Hypertension, MRSA Denies:: Diabetes Mellitus Type 1, Diabetes Mellitus Type 2 Assessment and Plan (1) Cellulitis Current visit: Yes Status: Acute Qualifiers: Site of cellulitis: extremity Site of cellulitis of extremity: lower extremity Laterality: unspecified laterality Qualified Code(s): L03.119 - Cellulitis of unspecified part of limb Category: Medical Code(s): L03.90 - Cellulitis, unspecified (2) SIRS (systemic inflammatory response syndrome) Current visit: Yes Status: Acute Category: Medical Code(s): R65.10 - Systemic inflammatory response syndrome (SIRS) of non-infectious origin without acute organ dysfunction (3) Elevated erythrocyte sedimentation rate Current visit: Yes Status: Acute Category: Medical Code(s): R70.0 - Elevated erythrocyte sedimentation rate (4) Elevated C-reactive protein (CRP) Current visit: Yes Status: Acute Category: Medical Code(s): R79.82 - Elevated C-reactive protein (CRP) (5) Obese Current visit: Yes Status: Acute Qualifiers: Obesity type: due to excess calories Obesity classification: adult class 3 (BMI >= 40) Serious obesity comorbidity presence: with serious comorbidity Body mass index: BMI 40.0-44.9 Qualified Code(s): E66.01 - Morbid (severe) obesity due to excess calories; Z68.41 - Body mass index (BMI) 40.0-44.9, adult Category: Medical Code(s): E66.9 - Obesity, unspecified
--- NOTE | 2020-03-05 09:13 | US_ITS ---
APPROVED REPORT Exam Type: Ankle to Brachial Index Esl Instructional Assistant: Jaclyn Vaughn, ROMULO Indications Limb Pain: Bilateral Non-healing Ulcer: Bilaterally Rest Pain: Bilaterally Edema Current Smoker Risk Factors Hypertension Obesity Current Smoker Pressures/Indices Right Indices Left Indices Brachial 156.00 mmHg Brachial 163.00 mmHg Low Thigh 175.00 mmHg 1.07 Low Thigh 181.00 mmHg 1.11 Calf 199.00 mmHg 1.22 Calf 209.00 mmHg 1.28 Ankle(PT) 188.00 mmHg 1.15 Ankle(PT) 199.00 mmHg 1.22 Ankle(DP) 194.00 mmHg 1.19 Ankle(DP) 199.00 mmHg 1.22 Digit 125.00 mmHg 0.77 Digit 166.00 mmHg 1.02 Findings RT ELVIS 1.2 L ELVIS 1.2 RT TBI 0.8 LTBI 1.0 MORMAL PULSES NORMAL WAVEFORMS Conclusion Normal appearing resting noninvasive lower extremity arterial study. Electronically signed by : Jonnathan Meredith MD 03/05/2020 18:19:06
--- NOTE | 2020-03-05 09:14 | XR_ITS ---
PROCEDURE: XR TIBIA FIBULA RT 2V CLINICAL INDICATION: WOUNDS Wound on the lower leg COMPARISON: XR TIBIA FIBULA RT 2V from 01/17/2020 FINDINGS: No fracture or dislocation. No lytic or blastic change. There is normal mineralization. The joint spaces are well-preserved. No significant degenerative/arthritic changes. No erosive changes evident. Other findings:There is generalized soft tissue swelling. No bony erosive process evident. Hyperostosis involves the medial condyle region of the distal femur. IMPRESSION: Soft tissue swelling otherwise negative Dictated by: Jonnathan Meredith MD 03/05/2020 10:22 Electronically signed by Jonnathan Meredith MD in [place] 03/05/2020 10:22
--- NOTE | 2020-03-05 09:14 | XR_ITS ---
PROCEDURE: XR TIBIA FIBULA LT 2V CLINICAL INDICATION: WOUNDS Wounds on both tibias COMPARISON: XR TIBIA FIBULA RT 2V from 01/17/2020 XR TIBIA FIBULA RT 2V from 03/05/2020 FINDINGS: No fracture or dislocation. No lytic or blastic change. There is normal mineralization. The joint spaces are well-preserved. No significant degenerative/arthritic changes. No erosive changes evident. Other findings:There is a soft tissue defect along the anterior aspect of the leg distally. No underlying bony erosive process. There is mild generalized edema. IMPRESSION: Generalized edema with soft tissue defect along the anterior lower leg without bony abnormality. Dictated by: Jonnathan Meredith MD 03/05/2020 10:21 Electronically signed by Jonnathan Meredith MD in [place] 03/05/2020 10:21
--- NOTE | 2020-03-05 09:20 | XR_ITS ---
PROCEDURE: XR CHEST 2V CLINICAL INDICATION: PREOP COMPARISON: CXR1 CHEST-PORTABLE from 07/07/2014 CXR1 CHEST-PORTABLE from 12/28/2014 FINDINGS: There is cardiomegaly without failure. The right hemidiaphragm is slightly elevated. No lobar consolidation or collapse. Other findings:None. IMPRESSION: Cardiomegaly Dictated by: Jonnathan Meredith MD 03/05/2020 16:25 Electronically signed by Jonnathan Meredith MD in [place] 03/05/2020 16:25
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
[2020-03-05 10:08] LABS: Hemoglobin A1C 4.3 % (4.0-6.0)
--- NOTE | 2020-03-05 10:15 | CA_ITS ---
APPROVED REPORT EXAM: Comprehensive 2D, Doppler, and color-flow Echocardiogram Lining Sewer: Sara Macias RT(R) Ht: 5 ft 8 in Wt: 275lbs BSA: 2.34 BP: 132/71 mmHg Indications: smoker, edema, HTN, obesity, family history HD, oozing bilateral LE ulcers, preop clearance for debridement 2D Dimensions LVOT 2.02 cm (M/F) 1.5-2.5 M-Mode Dimensions LVDd 4.45 cm (3.5-5.7) LVDs 3.39 cm (3.5-5.7) IVSd 1.06 cm (0.6-1.1) PWd 1.40 cm (0.6-1.1) EF (Teich) 47.70% FS 23.80% EDV (Teich) 90.10 mL ESV (Teich) 47.10 mL LV Diastology E/A Ratio 1.62 Mitral Valve MV A Velocity 63.00 (40-130 cm/s) Left Ventricle Left atrium is mildly enlarged, left ventricle is normal size, left ventricle wall thickness is upper limit of the normal, there is preserved left ventricular systolic function, visually estimated ejection fraction 55% with no regional wall motion abnormality, diastolic parameters are within normal range. Right Ventricle Right atrium and right ventricle are mildly enlarged with normal contractility. Aortic Valve Aortic valve is minimally thickened and fibrosed, there is no aortic stenosis or aortic insufficiency. Mitral Valve Mitral valve is grossly normal, there is mild mitral regurgitation. Tricuspid Valve Tricuspid valve is grossly normal, there is mild tricuspid regurgitation, tricuspid regurgitation jet velocity is inadequate for calculation of the right ventricular systolic pressure. Pulmonic Valve Pulmonic valve is poorly visualized. Great Vessels Aortic root is normal size. Pericardium No significant pericardial effusion noted. Conclusion 1. Mild biatrial enlargement, normal left ventricular size, preserved left ventricular systolic function, visually estimated ejection fraction 55% with no regional wall motion abnormality, diastolic parameters are within normal range. 2. Mildly enlarged right ventricle with normal contractility. 3. Mild mitral and tricuspid regurgitation. 4. No significant pericardial effusion noted. Electronically signed by : Iraj Ortiz, 03/05/2020 11:31:27
--- NOTE | 2020-03-05 10:27 | ECG_ITS ---
APPROVED REPORT Exam: Resting ECG HR:75 bpm ECG Measurements Heart Rate 75 AXES DC 144 P -10 QRSd 112 QRS 32 QT 434 T 61 QTc 484 <Conclusion> Normal sinus rhythm Prolonged QT Abnormal ECG Electronically signed by : Wilfredo Muñoz, 03/07/2020 08:09:10
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
[2020-03-05 10:43] LABS: Coronavirus 19 IgG Antibody Negative (Negative); Coronavirus 19 IgM Antibody Negative (Negative)
--- NOTE | 2020-03-05 13:23 | PC.NURSE ---
TRANSPORTED TO PREOP BY SURGERY STAFF IN BED
--- NOTE | 2020-03-05 14:06 | P.PN_ITS ---
[facility] Anesthesia Checklist - Patient Identification Patient Identification: Arm Band - Structural Data Admitted From: Inpatient Planned Operative Procedure/s: I&D bilateral lower extrimities Consent for Planned Operative Procedure(s) Verified: Yes Verified Documents: Surgical Consent, History and Physical - NPO Status Verified Time NPO: 00:00 - Additional verifications Anesthesia Reactions: No - Airway Assessment C-Spine Mobility Assessed: Yes (mp2) TMJ Mobility Assessed: Yes Dentition: Edentulous - Neurological Assessment Level of Consciousness: Awake, Alert - Anesthesia Plan Anesthesia Risk discussed: Yes Anesthesia Plan: Verified ASA Class: III Anesthesia Type: General [facility] History I have reviewed the patient's past medical history: Yes Medical History: Reports:: Chronic Obstructive Pulmonary Disease (COPD), Hy pertension, MRSA Denies:: Diabetes Mellitus Type 1, Diabetes Mellitus Type 2 *Have you ever received a pneumonia vaccine?: Yes *Have you received a flu vaccine this season?: No Other Medical History: Reports: Liver Disease (Pt states cirrhosis ) Anesthesia experience/problems:: nac Other Surgeries: Yes: Ureter Stent, Other Amputation: No Fractures: Yes - *Social History Last grade of school completed: GED Smoking Status: Current every day smoker Tobacco Type: cigarettes # Packs/Day (cigarettes): 1 Alcohol Intake: never Substance Use Type: former substance user, opiates, painkillers *Occupational Status:: disabled Housing: other *Travel in the last 8 weeks: None Family Hx:: Cancer, Coronary Artery Disease, Heart Attack
--- NOTE | 2020-03-05 15:25 | HMH.OPNOTE ---
Date of procedure: 03/05/20 Pre-op Diagnosis:: 1. Right foot abscess 2. Right foot ulcer 3. Left leg ulcer x2 4. B/L LE cellulitis Post-op Diagnosis:: Same Procedure performed:: 1. Right foot abscess incision and drainage 2. Right wound debridement 3. Right foot delayed primary closure 4. Left leg ulcer wound debridement x2 Surgeon:: Amaya Karimi DPM Epic Kaleidoscope Analyst(s):: None HORSERADISH MAKER:: Anjel Dos Santos Anesthesia: GETA, local (30cc 0.5% marcaine plain) Estimated blood loss (mL): 20 Clinical Note:: PRE-OP INFECTION: B/L LE CELLULITIS: Labs: wbc 4.8, esr 81, crp 53.6. Radiographs of the right foot, bilateral tib-fib multiple views from 03/05/20 were reviewed by myself and report noted. No evidence of fracture or dislocation. No erosive changes consistent with osteomyelitis. Generalized edema noted to both legs. Left side has generalized edema with a soft tissue defect along the anterior lower leg without bony abnormality. Reviewed labs. Bilateral lower extremity arterial ultrasound, 03/05/20: RT ELVIS 1.2 L ELVIS 1.2 RT TBI 0.8 LTBI 1.0 MORMAL PULSES, NORMAL WAVEFORMS Bilateral lower extremities cleansed with chlorhexidine. The skin looks much better after it was cleansed. No wounds between the toes. Maximum pain around the right dorsal foot ulcer. I suspect abscess. He has been treated multiple places and has been on oral and IV antibiotics appropriate for the condition but I explained if he does have an abscess the antibiotics will not heal this area. So we discussed conservative versus surgical treatment options. Conservative treatment options include local wound care, oral and IV antibiotics.patient could not tolerate bedside debridement. Patient states that more was done here in the last 10 minutes than the other hospital visits . He admits to leaving AMA since nobody did anything . We discussed surgical intervention for incision and drainage of the right foot abscess as well as wound debridement bilateral lower extremity. Patient understands that he could have wound healing complications including delayed healing and infection. We discussed that if the wound does not heal, it is possible that they may need an amputation and could result in loss of digits, loss of partial foot or loss of leg. We discussed the risks and benefits in great detail. Other surgical risks include: prolonged pain and swelling, further infection requiring oral or IV antibiotics, delay in healing of soft tissue or bone, nerve or blood vessel damage, CRPS/RSD, DVT, anesthesia complications, and even . All questions answered. Patient verbalized understanding. Consent obtained. Medical clearance per Dr. Resendez. Pre-op labs: ESR, CRP, CBC, CMP, EKG, CXR, ABIs, Covid reviewed. Dr. Resendez consulted cardiology. Dr. Ortiz did echo. Patient cleared from a cardiology standpoint for surgery today. Operative findings:: Bilateral lower extremity cellulitis with several wounds. The right anterior leg had two ulcers noted. Post debridement with a 15 blade, forceps and curette the wounds had some healthy bleeding noted. Wound base is 100% granular. The left anterior medial ulcer measured 3.5 x 2.3 x 0.3 cm. The left anterior lateral ulcer measured 2.1 x 2.6 x 0.2 cm. No purulence, malodor or drainage noted. The right foot had a small abscess to the second interspace with less than 3 cc of yellow and serosanguineous drainage. Wound noted and sharply excised full-thickness. Area was closed primarily with suture. Operative note:: On this date and time patient was deemed an appropriate surgical candidate. With informed consent signed, the patient was taken to the operating theater room. The patient was positioned supine. General anesthesia was induced. No tourniquet used. Bilateral lower extremity prepped and draped in normal sterile fashion. Left wound debridement x2: The left extremity was prepped and draped in normal sterile fashion. Attention was directed
--- NOTE | 2020-03-05 15:26 | P.PN_ITS ---
[facility] Anesthesia Record Part I Intake, IV Amount: 1,000 Estimated blood loss (mL): 5 Urine output (mL): 5 Blood Pressure: 143/82 SaO2: 95 Pulse Rate: 85 Respiratory Rate: 16 Temperature: 97.7 F Patient is:: Drowsy, Stable Stable to PACU at:: 15:25
--- NOTE | 2020-03-05 15:59 | PC.NURSE ---
Pt returned to the floor at this time, from surgery.
--- NOTE | 2020-03-05 17:38 | HMH.ACPN2 ---
Internal Medicine - PN: Subj *Date: 03/05/20 *Time: 17:47 Interval history: Procedure performed:: 1. Right foot abscess incision and drainage 2. Right wound debridement 3. Right foot delayed primary closure 4. Left leg ulcer wound debridement x2 per Dr Karimi uneventful preceding night on iv abx for cellulitis Exam Vital signs and Labs for Last 24 Hours: Temp Pulse Resp BP Pulse Ox 98.1 F 81 16 127/88 97 03/05/20 16:15 03/05/20 16:15 03/05/20 16:15 03/05/20 16:15 03/05/20 16:15 Laboratory Results - last 24 hr 03/04/20 20:35: WBC 4.8, RBC 3.64 L, Hgb 12.3 L, Hct 36.5 L, MCV 100.1 H, MCH 33.8 H, MCHC 33.8, RDW 15.6, Plt Count 96 L, MPV 8.2, Neut % (Auto) 64.9, Lymph % (Auto) 21.6, [place] % (Auto) 5.7, Eos % (Auto) 7.1, Baso % (Auto) 0.7, Neut # (Auto) 3.1, Lymph # (Auto) 1.1, [place] # (Auto) 0.3, Eos # (Auto) 0.3, Baso # (Auto) 0.0, ESR 81 H 03/04/20 20:35: Sodium 133 L, Potassium 3.5, Chloride 99, Carbon Dioxide 33 H, Anion Gap 4.5 L, BUN 9, Creatinine 0.50 L, Estimated Creat Clear 308 H, Estimated GFR 179, Est GFR ( Amer) 217, Glucose 95, Calcium 8.5, Total Bilirubin 2.7 H, AST 75 H, ALT 43, Alkaline Phosphatase 186 H, C-Reactive Protein 53.6 H, Total Protein 7.4, Albumin 3.1 L, Globulin 4.3 H, Albumin/Globulin Ratio 0.7 L 03/04/20 20:35: Lactate 1.2 03/04/20 20:35: Hemoglobin A1c 4.3 03/04/20 20:35: SARS-CoV-2 IgG Ab (Rapid) Negative, SARS-CoV-2 IgM Ab (Rapid) Negative I & O for Last 24 hours: Intake & Output 0703/03/20 03/04/20 03/05/20 23:59 23:59 23:59 23:59 Intake Total 1250 / 1250 2042 Output Total 1800 / 1800 Balance 1250 / 1250 243 / 243 Weight 271 lb 13.279 oz 275 lb 2.19 oz - Constitutional no acute distress - *Routine HEENT Exam Head: Present: abrasion Eye: Absent: conjunctival icterus ENT: Present: mucous membranes moist - *Routine Respiratory Exam Present: CTA bilaterally. Absent: accessory muscle use - *Routine Cardiovascular Exam Present: RRR. Absent: murmur - *Routine Abdominal Exam Present: soft. Absent: tenderness - *Routine Extremities Exam Present: tenderness. Absent: cyanosis, extremity cold to touch - *Routine Skin Exam Present: erythema, warm, lesions, wounds. Absent: intact, jaundice - *Routine Neurological Exam Present: alert, oriented X3 - Routine Psychiatric Exam Present: normal affect, cooperative Assessment and Plan (1) Cellulitis Current visit: Yes Status: Acute Qualifiers: Site of cellulitis: extremity Site of cellulitis of extremity: lower extremity Laterality: unspecified laterality Qualified Code(s): L03.119 - Cellulitis of unspecified part of limb Category: Medical Code(s): L03.90 - Cellulitis, unspecified (2) SIRS (systemic inflammatory response syndrome) Current visit: Yes Status: Acute Category: Medical Code(s): R65.10 - Systemic inflammatory response syndrome (SIRS) of non-infectious origin without acute organ dysfunction (3) Elevated erythrocyte sedimentation rate Current visit: Yes Status: Acute Category: Medical Code(s): R70.0 - Elevated erythrocyte sedimentation rate (4) Elevated C-reactive protein (CRP) Current visit: Yes Status: Acute Category: Medical Code(s): R79.82 - Elevated C-reactive protein (CRP) (5) Obese Current visit: Yes Status: Acute Qualifiers: Obesity type: due to excess calories Obesity classification: adult class 3 (BMI >= 40) Serious obesity comorbidity presence: with serious comorbidity Body mass index: BMI 40.0-44.9 Qualified Code(s): E66.01 - Morbid (severe) obesity due to excess calories; Z68.41 - Body mass index (BMI) 40.0-44.9, adult Category: Medical Code(s): E66.9 - Obesity, unspecified (6) Bilateral lower leg cellulitis Current visit: Yes Status: Acute Category: Medical Code(s): L03.116 - Cellulitis of left lower limb; L03.115 - Cellulitis of right lower limb (7) Bilateral lower ext
--- NOTE | 2020-03-05 18:43 | PC.NURSE ---
PATIENT RETURNED FROM SURGERY AT 1600. DAPTOMYCIN GIVEN AT THAT TIME. DRESSINGS C/D/I. CALL LIGHT WITHIN REACH WILL CONTINUE TO MONITOR
--- NOTE | 2020-03-05 20:12 | P.PN_ITS ---
[facility] Anesthesia Record Part II Discharge Time: 15:55 Destination: Medical Surgical Department PACU nurse assessment reviewed?: Yes Patient Condition:: Good Anesthesia Complications:: None Swallowing reflex intact?: Yes Cyanosis?: No Blood Pressure: 148/88 Pulse Rate: 78 Temperature: 97.7 F Mental Status: Alert & Oriented Pain level:: 0 Nausea and/or vomitting:: None Intake, IV Amount: 0
[2020-03-06] VITALS (9 sets, daily range): BP systolic 118–161; BP diastolic 64–95; PULSE 77–101; RESP 14–18; TEMP 36.6–37.2; O2SAT 95–98; BMI 40.8
[2020-03-06 06:25] LABS: Basophils % 0.1 % (0.1-2.0); Eosinophils % 0.4 % (0.1-12.0); Hematocrit 32.7 % (42.0-52.0); Hemoglobin 11.1 g/dL (14.1-18.0); Lymphocytes # 0.5 K/mm3 (0.7-4.5); Lymphocytes % 6.9 % (10-50); Mean Corpuscular HGB Conc 33.9 g/dL (31.8-35.4); Mean Corpuscular Hemoglobin 33.4 pg (27.0-31.2); Mean Corpuscular Volume 98.7 fl (80-94); Mean Platelet Volume 8.4 fl (7.4-10.4); Monocytes # 0.4 K/mm3 (0.1-1.0); Monocytes % 4.9 % (1.7-9.3); Neutrophils # 6.3 K/mm3 (1.8-7.8); Neutrophils % 87.7 % (37.0-80.0); Platelet Count 94 K/mm3 (142-424); Red Blood Count 3.31 M/mm3 (4.60-6.20); Red Cell Distribution Width 15.6 % (11.5-17.5); White Blood Count 7.2 K/mm3 (4.8-10.8)
[2020-03-06 06:37] LABS: MANUAL DIFFERENTIAL MANUAL DIFFERENTIAL (MANUAL DIFF)
[2020-03-06 06:39] LABS: Alanine Aminotransferase 39 U/L (12-78); Alkaline Phosphatase 148 U/L (38-126); Aspartate Amino Transferase 68 U/L (17-59); Bilirubin,Direct 0.4 mg/dl (0.0-0.4); Bilirubin,Indirect 1.4 mg/dL (0.0-0.9); Bilirubin,Total 1.8 mg/dl (0.2-1.3); Bilirubin,Unconjugated 1.5 mg/dL (0.0-1.1)
[2020-03-06 06:40] LABS: Albumin Level 2.8 g/dl (3.5-5.0); Chloride 99 mmol/L (98-107); Total Protein,Serum 6.7 g/dl (6.3-8.2)
[2020-03-06 06:41] LABS: Potassium 4.3 mmoL/L (3.5-5.1); Sodium 135 mmol/L (136-145)
[2020-03-06 06:43] LABS: Alanine Aminotransferase 38 U/L (12-78); Aspartate Amino Transferase 67 U/L (17-59); Blood Urea Nitrogen 10 mg/dl (9-20); Creatinine Clearance Estimated 149 mL/min (50-200); Estimated Glomerular Filt Rate 145 ml/min (>60); GFR (African American) 176 ML/MIN (>60)
[2020-03-06 06:44] LABS: Albumin Level 2.8 g/dl (3.5-5.0); Albumin/Globulin Ratio 0.7 (1.1-1.8); Alkaline Phosphatase 147 U/L (38-126); Anion Gap 8.3 mEq/L (5-15); Bilirubin,Total 1.9 mg/dl (0.2-1.3); Calcium 8.1 mg/dl (8.4-10.2); Carbon Dioxide 32 mmol/L (22.0-30.0); Globulin 3.9 g/dL (1.3-3.2); Glucose 124 mg/dl (74-100); Total Protein,Serum 6.7 g/dl (6.3-8.2)
[2020-03-06 06:45] LABS: C-Reactive Protein 37.8 mg/L (0-4)
[2020-03-06 07:38] LABS: Erythrocyte Sedimentation Rate 61 mm/hr (0-15)
--- NOTE | 2020-03-06 08:00 | US_ITS ---
PROCEDURE: US LIVER CLINICAL INDICATION: elevated bilirubin Cirrhosis, prior TIPS procedure COMPARISON: ABDPELW/O CT ABD PELVIS W/O CONTRAST from 05/12/2015 FINDINGS: This exam is limited technically due to patient's body habitus and overlying bowel gas with poor visualization of the pancreas and liver and right kidney. PANCREAS: Pancreas is not well delineated due to overlying bowel gas. CT or MRI without and with contrast with pancreatic protocol may provide further evaluation if clinically desired. LIVER: Poorly demonstrated. Cirrhosis noted with irregular liver contour. There has been a prior TIPS procedure performed. There are 2 shunt tubes present as noted from the previous CT scan. One of the tube is curvilinear and leads from the IVC region to the peritoneal space anterior to the liver. This shunt does not demonstrate internal flow. This 2nd shunt noted is a shunt from the portal vein to the IVC which does contain some internal flow. RIGHT KIDNEY: Grossly unremarkable GALLBLADDER: No gallstones, pericholecystic fluid, biliary dilatation, or gallbladder wall thickening. IMPRESSION: Limited exam. Cirrhosis with prior TIPS procedure as described above. There is poor visualization of the pancreas and liver. No gallstones apparent. Dictated by: Jonnathan Meredith MD 03/06/2020 11:52 Electronically signed by Jonnathan Meredith MD in [place] 03/06/2020 11:52
[2020-03-06 08:26] LABS: Lymphocytes % 7 % (10-50); Monocytes % 4 % (2-9); Neutrophils % 86 % (42-76); RBC Morphology Normal; Total Cells Counted 100
[2020-03-06 08:27] LABS: Platelet Estimate Slight Decrease
--- NOTE | 2020-03-06 08:29 | HMH.ORTHPN ---
Subjective Date: 03/06/20 Time: 07:55 Principal diagnosis: B/L LE cellulitis Interval history: Mr. Ragland is a 44-year-old male who is resting comfortably at the bedside with the leg dangling down. He reports some throbbing to the right lower extremity improved with hanging the leg down. He denies pain to the left side. He reports pain controlled with Percocet and Dilaudid. Patient denies N/V, F/C. PN: Obj Ex Vital signs: Temp Pulse Resp BP Pulse Ox 98.5 F 101 H 14 157/95 H 96 03/06/20 04:00 03/06/20 07:12 03/06/20 04:00 03/06/20 04:00 03/06/20 07:12 - Constitutional no acute distress, morbidly obese - Routine HEENT Exam Head: Present: normocephalic - Routine Neck Exam Present: supple - Routine Respiratory Exam Present: accessory muscle use. Absent: respiratory distress - Routine Abdominal Exam Present: obese - Routine Extremities Exam Present: edema. Absent: amputation - Detailed Lower Extremity Exam Comments: Bilateral lower extremity dressing clean dry and intact. Overall right LE has less swelling and pain. Skin cleansed with Betadine. The left anterior leg had two ulcers noted. Post debridement with a curette the wounds had no bleeding noted. Wound base is 100% granular. The left anterior medial ulcer measured 3.5 x 2.3 x 0.3 cm. The left anterior lateral ulcer measured 2.1 x 2.6 x 0.2 cm. No purulence, malodor or drainage noted. The right ankle had a small ulcer noted 100% wound base, measured 0.3 x 0.2 x 0.1 cm. The right foot had sutures intact to the dorsal second interspace. Skin reapproximated with sutures with a small opening noted. There was traumatic ecchymosis noted and bruising around the incision site. 4 sutures removed at bedside to relieve some tension of the skin. The area was milked, patient did have some pain but no drainage, hematoma, purulence expressed from the opening. - Routine Skin Exam Present: erythema, dry, wounds, ecchymosis - Routine Neurological Exam Present: alert, oriented X3 Progress Note: A&P (1) Cellulitis Status: Acute Current Visit: Yes (2) SIRS (systemic inflammatory response syndrome) Status: Acute Current Visit: Yes (3) Elevated erythrocyte sedimentation rate Status: Acute Current Visit: Yes (4) Elevated C-reactive protein (CRP) Status: Acute Current Visit: Yes (5) Obese Status: Acute Current Visit: Yes (6) Bilateral lower leg cellulitis Status: Acute Current Visit: Yes (7) Bilateral lower extremity edema Status: Acute Current Visit: Yes (8) Lymphedema Status: Acute Current Visit: Yes (9) Right foot ulcer Status: Acute Current Visit: Yes (10) Abscess of right foot Status: Acute Current Visit: Yes (11) Nail dystrophy Status: Acute Current Visit: Yes Assessment and Plan for All Diagnoses:: Sx 03/05/20: S/p right foot abscess incision and drainage, wound debridement, delayed primary closure and s/p left leg ulcer wound debridement x2 POD#1 Right foot wound culture: GNR Right foot deep wound culture: GNR Labs 03/05/20: wbc 4.8, esr 81, crp 53.6 Labs 03/06/20: wbc 7.2, esr 61, crp 37.8 Bilateral lower extremity cellulitis with several wounds noted. Overall both legs look improved. The right foot ulcer site has bruising with pain to palpation. Several sutures removed at the bedside and area explored, no purulence or evidence of deep infection noted. Skin cleansed with Betadine. Xeroform, Betadine soaked 4 x 4's and a dry sterile dressing applied to the left lower extremity. Betadine packed into the right incision with a dry sterile dressing. Discussed postop plan in detail with the patient. If patient is discharged home today or tomorrow he can maintain the dressing clean dry and intact until follow-up Monday. He understands if the dressing gets wet it will need to be changed. Plan: Patient is to maintain dressing clean dry and intact b/l LE. Elevate on 1-2 leyla
--- NOTE | 2020-03-06 09:55 | HMH.PNCARD ---
Subjective Date: 03/06/20 Time: 09:55 Principal diagnosis: B/L LE cellulitis Interval history: 44-year-old white male admitted for cellulitis. Patient underwent podiatry surgery yesterday with cleaning up of his left lower extremity ulcer. Patient denies any chest pain, pressure or tightness. He does have some pain related to the surgical site. He is anxious to go home. Exam Vital signs and Labs for Last 24 Hours: Temp Pulse Resp BP Pulse Ox 98.6 F 93 H 18 144/94 H 96 03/06/20 08:00 03/06/20 08:00 03/06/20 08:00 03/06/20 08:00 03/06/20 08:00 Laboratory Results - last 24 hr 03/04/20 20:35: Hemoglobin A1c 4.3 03/04/20 20:35: SARS-CoV-2 IgG Ab (Rapid) Negative, SARS-CoV-2 IgM Ab (Rapid) Negative 03/06/20 05:55: Total Bilirubin 1.8 H, Direct Bilirubin 0.4, Conjugated Bilirubin 0.0, Indirect Bilirubin 1.4 H, Unconjugated Bilirubin 1.5 H, AST 68 H, ALT 39, Alkaline Phosphatase 148 H, C-Reactive Protein 37.8 H D, Total Protein 6.7, Albumin 2.8 L 03/06/20 05:55: WBC 7.2 D, RBC 3.31 L, Hgb 11.1 L, Hct 32.7 L, MCV 98.7 H, MCH 33.4 H, MCHC 33.9, RDW 15.6, Plt Count 94 L, MPV 8.4, Neut % (Auto) 87.7 H, Lymph % (Auto) 6.9 L, Ballard % (Auto) 4.9, Eos % (Auto) 0.4, Baso % (Auto) 0.1, Neut # (Auto) 6.3, Lymph # (Auto) 0.5 L, Ballard # (Auto) 0.4, Eos # (Auto) 0.0, Baso # (Auto) 0.0, Total Counted 100, Neutrophils % (Manual) 86 H, Band Neutrophils % 3.0, Lymphocytes % (Manual) 7 L, Monocytes % (Manual) 4, Platelet Estimate Slight decrease, RBC Morphology Normal, ESR 61 H 03/06/20 05:55: Sodium 135 L, Potassium 4.3 D, Chloride 99, Carbon Dioxide 32 H, Anion Gap 8.3, BUN 10, Creatinine 0.60 L, Estimated Creat Clear 149, Estimated GFR 145, Est GFR ( Amer) 176, Glucose 124 H, Calcium 8.1 L, Total Bilirubin 1.9 H, AST 67 H, ALT 38, Alkaline Phosphatase 147 H, Total Protein 6.7, Albumin 2.8 L, Globulin 3.9 H, Albumin/Globulin Ratio 0.7 L I & O for Last 24 hours: Intake & Output 03/03/20 03/04/20 03/05/20 03/06/20 11:59 11:59 11:59 11:59 Intake Total 1779 / 1779 2637 / 2637 Output Total 950 / 950 1700 / 1700 Balance 829 / 829 937 / 937 Weight 275 lb 2.19 oz 275 lb 9.245 oz Microbiology Reports for the Last 24 Hours: Microbiology 03/05/20 14:41 Foot,Right - Wound Gram Stain - Final 03/05/20 14:41 Foot,Right - Wound Wound Culture - Preliminary Gram Negative Rods Gram Negative Rods#2 03/05/20 14:41 Foot,Right - Deep Gram Stain - Final 03/05/20 14:41 Foot,Right - Deep Wound Culture - Preliminary Gram Negative Rods Gram Negative Rods#2 - *Routine HEENT Exam Head: Present: normocephalic Eye: Present: EOMI, PERRL ENT: Present: mucous membranes moist - *Routine Respiratory Exam Present: CTA bilaterally. Absent: accessory muscle use, rales, rhonchi, wheezes - *Routine Cardiovascular Exam Present: RRR. Absent: murmur, gallop, rubs - *Routine Extremities Exam Absent: edema, calf tenderness Comments: Left lower extremity calf area is bandaged. - *Routine Neurological Exam Present: alert, oriented X3, moving all extremities Progress Note: A&P (1) Cellulitis Status: Acute Current Visit: Yes (2) SIRS (systemic inflammatory response syndrome) Status: Acute Current Visit: Yes (3) Elevated erythrocyte sedimentation rate Status: Acute Current Visit: Yes (4) Elevated C-reactive protein (CRP) Status: Acute Current Visit: Yes (5) Obese Status: Acute Current Visit: Yes (6) Bilateral lower leg cellulitis Status: Acute Current Visit: Yes (7) Bilateral lower extremity edema Status: Acute Current Visit: Yes (8) Lymphedema Status: Acute Current Visit: Yes (9) Right foot ulcer Status: Acute Current Visit: Yes (10) Abscess of right foot Status: Acute Current Visit: Yes (11) Nail dystrophy Status: Acute Current Visit: Yes
--- NOTE | 2020-03-06 11:55 | HMH.PTEV ---
Physical Therapy Evaluation Rehab PT IP Evaluation Start: 03/05/20 15:47 Freq: ONCE Status: Active Protocol: Document 03/06/20 10:30 PHORSHARRON (Rec: 03/06/20 11:55 PHORNE [id number]) Subjective/History History History 44 yowm adm to [facility] with B LE wounds with I&D performed. Pt now PWB on R foot S/P OR. He reports he has no steps to enter the home and lives with his brother, as well as other non-related individuals. Subjective Subjective Pt with no c/o this am. Rehab PT IP Eval Objective Appearance Patient Behavior Appropriate Patient Orientation Person,Place,Time Difficulty following instructions none Speech Pattern Clear Ambulation Patient Able to Ambulate Yes Ambulation Observation IP General Gait Pattern Observation Antalgic Gait Ambulation Distance (feet) 20 Ambulation Assistive Device Rolling Walker Ambulation Ability Supervision/Stand by Balance Ability to Arise Able, w/o using arms Sitting Balance Steady, safe Standing Balance Steady, wide stance Dynamic Sitting Balance Ability Good Dynamic Standing Balance Ability Good Transfers Bed Transfer Ability Independent Chair Transfer Ability Supervision/Stand by Sit to Stand Bed Transfer Ability Supervision/Stand by Sit to Stand Chair Transfer Ability Supervision/Stand by ROM All Extremities PT ROM Status WFL MMT All Extremities PT MMT WFL Rehab PT IP prob,goals,plan Problems Date of Evaluation: 03/06/20 Discharge Plan PT Discharge Plan Pt is appropruate to return home once medically stable with RW for ambulation for safety and PWB. G -code Required No Eval Complexity Eval Charge Codes 36998 - Moderate Complexity PHYSICIAN CERTIFICATION: I certify the specified therapy services for Vinod Ragland JR are required, authorized, and reviewed every 30 days.
--- NOTE | 2020-03-06 14:39 | PC.NURSE ---
Pt has been pleasant and cooperative this shift. A&O X4. No complaints of CP/SOA. Lungs CTA and pt is on room air with sats. >95%. Pt has had frequent complaints of pain and has had multiple doses of Dilaudid and Percocet. Pt uses the urinal to void and urine is noted to be dark reji in color. No BM thus far this shift. Redness/edema noted to BLE. BLE dressings were changed this AM by Dr. Karimi and further dressing instructions are outlined in her progress note. BLE are elevated with pillows. Pt is FWB on the LLE and PWB with a walker/walking boot on the RLE. 20 G peripheral IV in the LT AC is patent and infusing NS @ 50 ML/HR. VSS. Call light within reach. Will continue to monitor.
--- NOTE | 2020-03-06 14:53 | PC.NURSE ---
Addendum entered by Nidhi Reilly 03/06/20 14:58: Original Note: Pt would benefit from the use of a walker to ambulate due to RT leg [id number] status and unsteady gait.
--- NOTE | 2020-03-06 15:03 | SW/DCPLANNER ---
ORDERED FOR PATIENT A SHORT FRACTURE BOOT AND ROLLING WALKER... THIS WILL BE DELIVERED BY [facility] THIS AFTERNOON... PATIENT MAY DISCHARGE HOME OVER THE WEEKEND PENDING SOME LABS ... WILL BE SET UP FOR DRESSING CHANGES ONCE DETERMINED WHAT ANTIBIOTIC IS NEEDED...
--- NOTE | 2020-03-06 18:10 | HMH.ACPN2 ---
Internal Medicine - PN: Subj *Date: 03/06/20 *Time: 18:10 Interval history: seen on rounds this morning with Dr Karimi right foot cultured gnr ulcers on left look much pin cleaner echo was normal cardiol note reviewed bili and crp are trending down Exam Vital signs and Labs for Last 24 Hours: Temp Pulse Resp BP Pulse Ox 98.6 F 77 18 154/77 H 96 03/06/20 16:00 03/06/20 16:00 03/06/20 16:00 03/06/20 16:00 03/06/20 16:00 Laboratory Results - last 24 hr 03/06/20 05:55: Total Bilirubin 1.8 H, Direct Bilirubin 0.4, Conjugated Bilirubin 0.0, Indirect Bilirubin 1.4 H, Unconjugated Bilirubin 1.5 H, AST 68 H, ALT 39, Alkaline Phosphatase 148 H, C-Reactive Protein 37.8 H D, Total Protein 6.7, Albumin 2.8 L 03/06/20 05:55: WBC 7.2 D, RBC 3.31 L, Hgb 11.1 L, Hct 32.7 L, MCV 98.7 H, MCH 33.4 H, MCHC 33.9, RDW 15.6, Plt Count 94 L, MPV 8.4, Neut % (Auto) 87.7 H, Lymph % (Auto) 6.9 L, Henderson % (Auto) 4.9, Eos % (Auto) 0.4, Baso % (Auto) 0.1, Neut # (Auto) 6.3, Lymph # (Auto) 0.5 L, Henderson # (Auto) 0.4, Eos # (Auto) 0.0, Baso # (Auto) 0.0, Total Counted 100, Neutrophils % (Manual) 86 H, Band Neutrophils % 3.0, Lymphocytes % (Manual) 7 L, Monocytes % (Manual) 4, Platelet Estimate Slight decrease, RBC Morphology Normal, ESR 61 H 03/06/20 05:55: Sodium 135 L, Potassium 4.3 D, Chloride 99, Carbon Dioxide 32 H, Anion Gap 8.3, BUN 10, Creatinine 0.60 L, Estimated Creat Clear 149, Estimated GFR 145, Est GFR ( Amer) 176, Glucose 124 H, Calcium 8.1 L, Total Bilirubin 1.9 H, AST 67 H, ALT 38, Alkaline Phosphatase 147 H, Total Protein 6.7, Albumin 2.8 L, Globulin 3.9 H, Albumin/Globulin Ratio 0.7 L I & O for Last 24 hours: Intake & Output 03/03/20 03/04/20 03/05/20 03/06/20 23:59 23:59 23:59 23:59 Intake Total 1250 / 1250 2523 / 2523 2243 / 2243 Output Total 2350 / 2350 3100 / 3100 Balance 1250 / 1250 173 / 173 -857 / -857 Weight 271 lb 13.279 oz 275 lb 2.19 oz 275 lb 9.245 oz Microbiology Reports for the Last 24 Hours: Microbiology 03/05/20 14:41 Foot,Right - Wound Gram Stain - Final 03/05/20 14:41 Foot,Right - Wound Wound Culture - Preliminary Gram Negative Rods Gram Negative Rods#2 03/05/20 14:41 Foot,Right - Deep Gram Stain - Final 03/05/20 14:41 Foot,Right - Deep Wound Culture - Preliminary Gram Negative Rods Gram Negative Rods#2 - Constitutional no acute distress - *Routine HEENT Exam Head: Present: normocephalic, abrasion Eye: Absent: conjunctival icterus - *Routine Neck Exam Present: supple - *Routine Respiratory Exam Present: CTA bilaterally. Absent: accessory muscle use - *Routine Cardiovascular Exam Present: RRR. Absent: murmur - *Routine Abdominal Exam Present: soft. Absent: tenderness - *Routine Extremities Exam Present: edema, tenderness. Absent: cyanosis - *Routine Skin Exam Present: erythema, wounds. Absent: pallor - *Routine Neurological Exam Present: alert, oriented X3 - Routine Psychiatric Exam Present: normal affect Assessment and Plan (1) Cellulitis Current visit: Yes Status: Acute Qualifiers: Site of cellulitis: extremity Site of cellulitis of extremity: lower extremity Laterality: unspecified laterality Qualified Code(s): L03.119 - Cellulitis of unspecified part of limb Category: Medical Code(s): L03.90 - Cellulitis, unspecified (2) SIRS (systemic inflammatory response syndrome) Current visit: Yes Status: Acute Category: Medical Code(s): R65.10 - Systemic inflammatory response syndrome (SIRS) of non-infectious origin without acute organ dysfunction (3) Elevated erythrocyte sedimentation rate Current visit: Yes Status: Acute Category: Medical Code(s): R70.0 - Elevated erythrocyte sedimentation rate (4) Elevated C-reactive protein (CRP) Current visit: Yes Status: Acute Category: Medical C
--- NOTE | 2020-03-06 19:11 | PC.NURSE ---
report given to samir
--- NOTE | 2020-03-06 22:39 | PC.NURSE ---
Pt's room air sat at rest = 99%.
--- NOTE | 2020-03-07 03:20 | PC.NURSE ---
A&OX4. PT HAS TOLERATED ROOM AIR WELL THROUGHOUT SHIFT. RESPIRATIONS REGULAR AND UNLABORED. LUNG SOUNDS BILATERALLY CLEAR. NO EDEMA NOTED. HEART RATE REGULAR. ACTIVE BOWEL SOUNDS HEARD IN ALL 4 QUADRANTS. SOFT AND NONTENDER ABDOMEN. DRESSING NOTED TO BLE. CDI. HAND GAS TRANSFER OPERATOR EQUAL. PT HAS HAD SEVERAL COMPLAINTS OF PAIN THROUGHOUT SHIFT AND HAS RECEIVED DILAUDID AND PERCOCET NEEDED PER MAR. ON REASSESSMENT, PT STATED PAIN WASN'T BETTER AND RECEIVED ANOTHER PRN OR WAS RESTING WITH HIS EYES CLOSED. NO REPORTS OF NAUSEA. PT HAS REMAINED AFEBRILE. PT USES THE URINAL TO VOID. PT CURRENTLY RESTING IN BED WITH CALL LIGHT WITHIN REACH. BED IN LOWEST POSITION. VSS. NO CONCERNS AT THIS TIME. WILL CONTINUE TO MONITOR.
[2020-03-07 04:00] VITALS: BP 135/68; PULSE 71; RESP 18; TEMP 36.9; O2SAT 96
[2020-03-07 04:57] VITALS: BMI 41.8
[2020-03-07 06:25] VITALS: PULSE 74; O2SAT 97
[2020-03-07 07:45] VITALS: BP 98/68; PULSE 76; RESP 18; TEMP 37; O2SAT 99
[2020-03-07 08:00] VITALS: PULSE 76; RESP 18; O2SAT 99
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
--- NOTE | 2020-03-07 11:00 | HMH.PHAINT ---
DISCHARGE COUNSELING COMPLETED
[2020-03-07 11:10] LABS: Hep A Ab, IgM Negative (Negative); Hepatitis B Core Antibody IgM Negative (Negative); Hepatitis B Surface Antigen Negative (Negative)
[2020-03-07 12:55] LABS: Hepatitis C Antibody >11.0 s/co ratio (0.0-0.9)
== END 2020-03-07 11:00 | disposition home or self-care (01) | DRG 571 ==
LOC: ER 17:32 → 2ND 20:17
PROVIDERS: Family Medicine; Podiatrist; Admitting Provider Emergency Medicine; Emergency Provider Emergency Medicine; Visit Provider Emergency Medicine
PROC: 0JBQ0ZZ Excision of Right Foot Subcutaneous Tissue and Fascia, Open Approach (ICD-10-PCS; principal; 2020-03-05 14:30)
DX: L03.115 Cellulitis of right lower limb (principal); R65.10 Systemic inflammatory response syndrome (SIRS) of non-infectious origin without acute organ dysfunction; L02.611 Cutaneous abscess of right foot; Z16.24 Resistance to multiple antibiotics; Z68.41 Body mass index [BMI] 40.0-44.9, adult; L03.116 Cellulitis of left lower limb; Z72.0 Tobacco use; I89.0 Lymphedema, not elsewhere classified; L97.511 Non-pressure chronic ulcer of other part of right foot limited to breakdown of skin; L60.3 Nail dystrophy; E66.01 Morbid (severe) obesity due to excess calories; Z88.8 Allergy status to other drugs, medicaments and biological substances
CPT/HCPCS: 11042; 36415; 71046; 73590; 73630; 76705; 80053; 80074; 80076; 83036; 83605; 85007; 85025; 85651; 86140; 86328; 87040; 87070; 87075; 87077; 87186; 87205; 93005; 93306; 93923; 94640; 94761; 96365; 96367; 97162; 99284; J0878; J1956; J2405; J3370

== ENCOUNTER 2020-03-12 19:17 | Inpatient (IN) | payer MEDICARE, SELFPAY ==
[2020-03-12 19:18] VITALS: BP 202/111; PULSE 93; RESP 18; TEMP 36.6; O2SAT 99; BMI 38.4
--- NOTE | 2020-03-12 19:33 | HMH.EDGENADL ---
ED Disposition Clinical Impression: Wound of right foot, Lymphedema, Uncontrolled pain Disposition: Admitted as Observation Condition on Discharge: Good Referrals: PCP,No [Non-Staff] - Time of Disposition: 20:11 - Critical Care Critical Care Time: No Attestation: On , the high probability of a clinically significant, sudden or life threatening deterioration of the following system(s) required my full and direct attention, intervention and personal management. The time I documented below is in addition to time spent performing reported procedures but includes the following listed in this critical care notation. Medical Decision Making - Medical Records Medical records reviewed: Yes: I reviewed the patient's medical records. - Joshua Inquiry Pt receiving controlled substance: No Vital Signs: 03/12/20 19:18 Temperature 97.8 F Temperature Source Oral Pulse Rate [Right Brachial] 93 H Respiratory Rate 18 Blood Pressure [Right Arm] 202/111 H Blood Pressure Mean [Right Arm] 141 Blood Pressure Source [Right Arm] Automatic Cuff Blood Pressure Position [Right Arm] Sitting 02 Sat by Pulse Oximetry 99 Oxygen Delivery Method Room Air - Lab Data Lab Results 03/12/20 19:18: WBC 3.6 L, RBC 3.34 L, Hgb 11.1 L, Hct 33.5 L, MCV 100.2 H, MCH 33.3 H, MCHC 33.3, RDW 15.7, Plt Count 116 L, MPV 8.0, Neut % (Auto) 64.1, Lymph % (Auto) 23.1, [place] % (Auto) 5.2, Eos % (Auto) 7.1, Baso % (Auto) 0.5, Neut # (Auto) 2.3, Lymph # (Auto) 0.8, [place] # (Auto) 0.2, Eos # (Auto) 0.3, Baso # (Auto) 0.0 Result diagrams: 03/12/20 19:18 Orders (Tests/Meds): ED MEDICATIONS Generic Name Dose Route Start Last Admin Trade Name Freq PRN Reason Stop Dose Admin Sodium Chloride 1,000 mls @ 999 mls/hr 03/12/20 19:30 03/12/20 19:37 Sod Chlor 0.9% 1000ml Bag IV 03/12/20 20:30 999 mls/hr .Q1H1M CJ Administration Piperacillin Sod/Tazobactam 100 mls @ 200 mls/hr 03/12/20 19:30 03/12/20 19:43 Sod 4.5 gm/ Sodium Chloride IV 03/26/20 19:29 200 mls/hr Q8H CJ Administration Protocol Vancomycin HCl 1,250 mg 03/12/20 19:30 Vancomycin 1000mg Vial IV 03/12/20 19:31 ONCE ONE Protocol Discontinued Medications Generic Name Dose Route Start Last Admin Trade Name Prisca PRN Reason Stop Dose Admin Hydromorphone HCl 1 mg 03/12/20 19:23 03/12/20 19:36 Dilaudid 2mg/Ml Syringe IV 03/12/20 19:24 1 mg ONCE ONE Administration ORDERS Category Date Time Status XR foot RT min 3V Stat Exams 03/12/20 19:36 Taken CMP [Comprehensive Metabolic Panel] Stat Lab 03/12/20 19:18 Received CRP [C-Reactive Protein] Stat Lab 03/12/20 19:18 Received Lactic Acid Stat Lab 03/12/20 19:18 Received Blood Culture Stat Micro 03/12/20 19:18 Received Medical Decision Narrative: In summary this is a 44-year-old male with history of lymphedema and recent surgery presenting to the emergency department with right foot pain. Patient appears uncomfortable on arrival. Vital signs are stable. He is hypertensive. Afebrile. Differential diagnoses include soft tissue infection, nonhealing wound, cellulitis, osteomyelitis. Plan to obtain CBC, CMP, lactic acid, blood cultures, x-rays of the right foot. Patient given vancomycin and Zosyn. Even IV fluid bolus and 1 mg of IV Dilaudid. I reviewed patient's wound culture, positive for Serratia. He is currently taking doxycycline. Will be changed to Zosyn for anaerobic coverage. I consulted patient's pipelayer, Dr. Karimi. Agreeable with plan for admission for antibiotics, pain control, wound care. Dr. Olvera consulted for admission. General Adult HPI - General Chief complaint: PAIN Stated complaint: Foot pain Time Seen by Provider: 03/12/20 19:20 Mode of Arrival: EMS Limitations: No Limitations Description of Symptoms (Recalled from ER Triage Doc. by RN): Patient brought in by [facility] with complaints of severe right foot pain. Patient reports he has surgery la
--- NOTE | 2020-03-12 19:36 | XR_ITS ---
PROCEDURE: XR FOOT RT MIN 3V CLINICAL INDICATION: foot pain Pain in the distal 3rd, 4th and 5th metatarsals, rule out osteo. COMPARISON: XR FOOT RT MIN 3V from 03/04/2020 FINDINGS: No fracture or dislocation. No lytic or blastic change. There is normal mineralization. The joint spaces are well-preserved. No significant degenerative/arthritic changes. No erosive changes evident. Moderate-sized plantar calcaneal spur is again seen. Other findings:There is interval increased diffuse possible inflammatory soft tissue edema/swelling of the right foot. IMPRESSION: 1. Interval diffusely increased possible inflammatory soft tissue edema/swelling of the right foot. 2. No demonstrated fracture, bony destruction/evidence of osteomyelitis or dislocation. Dictated by: Felecia Emerson 03/13/2020 09:46 Electronically signed by Felecia Emerson in [place] 03/13/2020 09:46
[2020-03-12 19:37] LABS: Basophils % 0.5 % (0.1-2.0); Eosinophils # 0.3 K/mm3 (0.0-0.4); Eosinophils % 7.1 % (0.1-12.0); Hematocrit 33.5 % (42.0-52.0); Hemoglobin 11.1 g/dL (14.1-18.0); Lymphocytes # 0.8 K/mm3 (0.7-4.5); Lymphocytes % 23.1 % (10-50); Mean Corpuscular HGB Conc 33.3 g/dL (31.8-35.4); Mean Corpuscular Hemoglobin 33.3 pg (27.0-31.2); Mean Corpuscular Volume 100.2 fl (80-94); Monocytes # 0.2 K/mm3 (0.1-1.0); Monocytes % 5.2 % (1.7-9.3); Neutrophils # 2.3 K/mm3 (1.8-7.8); Neutrophils % 64.1 % (37.0-80.0); Platelet Count 116 K/mm3 (142-424); Red Blood Count 3.34 M/mm3 (4.60-6.20); Red Cell Distribution Width 15.7 % (11.5-17.5); White Blood Count 3.6 K/mm3 (4.8-10.8)
--- NOTE | 2020-03-12 19:43 | PC.NURSE ---
paged dr chamberlain
[2020-03-12 19:44] LABS: Alanine Aminotransferase 36 U/L (12-78); Albumin Level 2.8 g/dl (3.5-5.0); Albumin/Globulin Ratio 0.7 (1.1-1.8); Alkaline Phosphatase 278 U/L (38-126); Anion Gap 9.2 mEq/L (5-15); Aspartate Amino Transferase 73 U/L (17-59); Blood Urea Nitrogen 10 mg/dl (9-20); Calcium 8.4 mg/dl (8.4-10.2); Carbon Dioxide 28 mmol/L (22.0-30.0); Chloride 104 mmol/L (98-107); Creatinine Clearance Estimated 257 mL/min (50-200); Estimated Glomerular Filt Rate 145 ml/min (>60); GFR (African American) 176 ML/MIN (>60); Globulin 4.1 g/dL (1.3-3.2); Glucose 108 mg/dl (74-100); Lactic Acid 1.5 mmol/L (0.7-2.1); Potassium 3.2 mmoL/L (3.5-5.1); Sodium 138 mmol/L (136-145); Total Protein,Serum 6.9 g/dl (6.3-8.2)
[2020-03-12 19:48] VITALS: BP 189/109; PULSE 88; RESP 18; O2SAT 99
--- NOTE | 2020-03-12 19:48 | PC.NURSE ---
dr chamberlain returned call.
[2020-03-12 19:49] LABS: C-Reactive Protein 19.6 mg/L (0-4)
[2020-03-12 20:18] VITALS: BP 186/114; PULSE 81; RESP 18; O2SAT 98
[2020-03-12 20:32] VITALS: BP 202/116; PULSE 83; RESP 18; TEMP 36.6; O2SAT 98
[2020-03-12 20:45] VITALS: BP 165/99; PULSE 81; RESP 20; TEMP 37.1; O2SAT 100; BMI 37.8
--- NOTE | 2020-03-12 20:45 | PC.NURSE ---
patient up to floor via wheelchair.
[2020-03-13 03:45] VITALS: BP 145/72; PULSE 86; RESP 18; TEMP 36.6; O2SAT 97
--- NOTE | 2020-03-13 03:45 | PC.NURSE ---
Pt has slept most of the time since arriving to the floor. When pt does awaken, he goes back to sleep very quickly. After photos were taken of right foot wound, dressing of telfa and kerlix was applied to absorb drainage. Pt lung sounds continue to include wheezing in all lobes.
[2020-03-13 05:22] VITALS: BMI 37.8
[2020-03-13 07:06] LABS: Basophils % 0.4 % (0.1-2.0); Chloride 103 mmol/L (98-107); Eosinophils # 0.2 K/mm3 (0.0-0.4); Eosinophils % 7.5 % (0.1-12.0); Hematocrit 31.6 % (42.0-52.0); Hemoglobin 10.6 g/dL (14.1-18.0); Lymphocytes # 0.5 K/mm3 (0.7-4.5); Lymphocytes % 17.9 % (10-50); Mean Corpuscular HGB Conc 33.7 g/dL (31.8-35.4); Mean Corpuscular Hemoglobin 34.7 pg (27.0-31.2); Mean Platelet Volume 8.2 fl (7.4-10.4); Monocytes # 0.2 K/mm3 (0.1-1.0); Monocytes % 7.6 % (1.7-9.3); Neutrophils # 1.7 K/mm3 (1.8-7.8); Neutrophils % 66.5 % (37.0-80.0); Platelet Count 96 K/mm3 (142-424); Potassium 3.2 mmoL/L (3.5-5.1); Red Blood Count 3.06 M/mm3 (4.60-6.20); Red Cell Distribution Width 15.3 % (11.5-17.5); Sodium 135 mmol/L (136-145); White Blood Count 2.6 K/mm3 (4.8-10.8)
[2020-03-13 07:09] LABS: Anion Gap 3.2 mEq/L (5-15); Blood Urea Nitrogen 9 mg/dl (9-20); Carbon Dioxide 32 mmol/L (22.0-30.0); Creatinine Clearance Estimated 252 mL/min (50-200); Estimated Glomerular Filt Rate 145 ml/min (>60); GFR (African American) 176 ML/MIN (>60)
[2020-03-13 07:10] LABS: Calcium 7.6 mg/dl (8.4-10.2); Glucose 109 mg/dl (74-100)
[2020-03-13 08:00] VITALS: BP 176/104; PULSE 90; RESP 20; TEMP 36.5; O2SAT 100
[2020-03-13 08:45] VITALS: BP 155/90
--- NOTE | 2020-03-13 09:14 | HMH.HP ---
*Admission Date: 03/12/20 *Chief complaint: cellulitis *History of present illness: 44-year-old male presented to the emergency department with pain in his right foot. Patient states he had a surgery for an abscess last week with Dr Karimi. Over the past 24 hours he has developed increasing sharp pain on the top of his foot not relieved with pain meds. Pain is described as unbearable. Radiates into the top of his foot. Pt states he has been doing wound changes at home. Pt states he had a follow-up [address] Arias. No concerns at that time but did mention maybe more surgery. Patient is taking doxycycline as prescribed. Is taking [place] for pain. Denies fevers, chills, nausea, vomiting. Patient does not have diabetes but was told he has some blood flow issues to legs. Denies history of MRSA abscesses. [facility] History I have reviewed the patient's past medical history: Yes Medical History: Reports:: Chronic Obstructive Pulmonary Disease (COPD), Hypertension, MRSA Denies:: Diabetes Mellitus Type 1, Diabetes Mellitus Type 2 *Have you ever received a pneumonia vaccine?: No *Have you received a flu vaccine this season?: No Other Medical History: Reports: Liver Disease Laterality Cases: Bilateral: Other Other Surgeries: Yes: Ureter Stent, Other (bilateral feet) Amputation: No Fractures: Yes - *Social History Smoking Status: Current every day smoker Tobacco Type: cigarettes # Packs/Day (cigarettes): 1 Alcohol Intake: never Substance Use Type: former substance user, opiates, painkillers *Occupational Status:: disabled Housing: other Household Members: significant other *Travel in the last 8 weeks: None Family Hx:: Cancer, Coronary Artery Disease, Heart Attack Review of Systems - Review of Systems Review of systems:: pertinent systems reviewed and negative unless documented below - Constitutional Reports fever(s), Denies body ache(s) - Eyes Denies change in vision - ENT Denies bleeding gums, Denies nose pain - *Cardiovascular Reports leg swelling, Denies chest pain with activity, Denies shortness of breath - *Respiratory Denies chest congestion, Denies other - *Gastrointestinal Denies belching, Denies bright, red blood in stools - *Genitourinary Denies urinary frequency - *Musculoskeletal Denies joint pain - Integumentary/Breasts Reports skin ulcer, Reports sores, Denies bleeding lesions - *Neurologic Reports restless legs, Denies dizziness, Denies headache(s) - Psychiatric Denies lack of enjoyment - Endocrine Denies excessive sweating - Hematologic/Lymphatic Denies easy bruising - Allergic/Immunologic Denies itchy eyes Meds Home Medications Medication Instructions Recorded Confirmed Type Lisinopril/Hydrochlorothiazide 1 tab PO DAILY 03/04/20 03/13/20 History [Zestoretic 10/12.5mg tablet] levofloxacin 750 mg tablet 750 mg PO DAILY 03/09/20 03/12/20 History oxycodone-acetaminophen 7.5 mg-325 1 tab PO Q4-6H PRN #30 tab 03/09/20 03/12/20 Rx mg tablet Doxycycline Hyclate [Vibra-Tab 100 mg PO BID 03/12/20 03/12/20 History 100mg tablet] Metoprolol Succinate [Metoprolol 50 mg PO DAILY 03/13/20 03/13/20 History Succinate 50mg Tablet*] Allergies Allergy/AdvReac Type Severity Reaction Status Date / Time codeine Allergy Hives Verified 03/12/20 19:25 guaifenesin [From Mucinex] Allergy SWELLS Verified 03/12/20 19:25 ketorolac [From Toradol] Allergy Migraine Verified 03/12/20 19:25 Exam Vital signs and Labs for Last 24 Hours: Temp Pulse Resp BP Pulse Ox 97.7 F 90 20 176/104 H 100 03/13/20 08:00 03/13/20 08:00 03/13/20 08:00 03/13/20 08:00 03/13/20 08:00 Laboratory Results - last 24 hr 03/12/20 19:18: WBC 3.6 L, RBC 3.34 L, Hgb 11.1 L, Hct 33.5 L, MCV 100.2 H, MCH 33.3 H, MCHC 33.3, RDW 15.7, Plt Count 116 L, MPV 8.0, Neut % (Auto) 64.1, Lymph % (Auto) 23.1, [place] % (Auto) 5.2, Eos % (Auto) 7.1, Baso % (Auto) 0.5, Neut # (Auto) 2.3, Lymph # (Auto
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
[2020-03-13 11:04] LABS: Magnesium 1.6 mg/dl (1.6-2.3)
--- NOTE | 2020-03-13 11:14 | HMH.ORTHOCON ---
*Admission Date: 03/13/20 <Genie Humphreys - 03/13/20 11:51> *Reason for consult:: Right foot Wound <Genie Humphreys - 03/13/20 11:51> *History of present illness: *Admission Date: 03/12/20 *Chief complaint: cellulitis *History of present illness: 44-year-old male presented to the emergency department with pain in his right foot. Patient states he had a surgery for an abscess last week with Dr Karimi. Over the past 24 hours he has developed increasing sharp pain on the top of his foot not relieved with pain meds. Pain is described as unbearable. Radiates into the top of his foot. Pt states he has been doing wound changes at home. Pt states he had a follow-up [address] Arias. No concerns at that time but did mention maybe more surgery. Patient is taking doxycycline as prescribed. Is taking [place] for pain. Denies fevers, chills, nausea, vomiting. Patient does not have diabetes but was told he has some blood flow issues to legs. Denies history of MRSA abscesses. [facility] History I have reviewed the patient's past medical history: Yes Medical History: Reports:: Chronic Obstructive Pulmonary Disease (COPD), Hypertension, MRSA Denies:: Diabetes Mellitus Type 1, Diabetes Mellitus Type 2 *Have you ever received a pneumonia vaccine?: No *Have you received a flu vaccine this season?: No Other Medical History: Reports: Liver Disease Laterality Cases: Bilateral: Other Other Surgeries: Yes: Ureter Stent, Other (bilateral feet) Amputation: No Fractures: Yes - *Social History Smoking Status: Current every day smoker Tobacco Type: cigarettes # Packs/Day (cigarettes): 1 Alcohol Intake: never Substance Use Type: former substance user, opiates, painkillers *Occupational Status:: disabled Housing: other Household Members: significant other *Travel in the last 8 weeks: None Family Hx:: Cancer, Coronary Artery Disease, Heart Attack Patient was resting in bed upon morning rounds. He states he was admitted last night for increased pain to his right foot. He denies any N/V/D or fevers. The patient is Status post foot surgery 03/05/20: S/p right foot abscess incision and drainage, wound debridement, delayed primary closure and s/p left leg ulcer wound debridement x2. The patient also has Bilateral lower extremity cellulitis with several wounds noted. The right foot ulcer site has pain to palpation. Skin to right foot looks worse because wound and plantar foot is macerated and wet with peeling skin sloughing. The patient admits to soaking his foot for approximately 20 to 30 minutes at home postoperatively. I explained to the patient that the sutures were not supposed to be wet because it makes his skin soft and loose and the stitches will not hold and the wound and it will start to dehisce open. The patient stated that The family insisted he did it or he will lose his foot . The site appears to be very wet. 90%Yellow fibrotic slough is in the wound bed with approx. 10% brown fibrotic tissue noted as well. The sutures are intact for now. The foot has erythema and edema as well as the toes are very edematous. The erythema extends up the leg and the entire lower extremities are very red swollen and very tender to touch. Right foot wound culture: Serratia marcescens, Aeromonas hydrophila Labs 03/05/20: wbc 4.8, esr 81, crp 53.6 Labs 03/06/20: wbc 7.2, esr 61, crp 37.8, glucose 124, Hac1 4.3% Labs 03/13/20: wbc 2.6, crp. 19.6 Bilateral lower extremity cellulitis with several wounds noted. The right foot ulcer site has bruising with pain to palpation. Skin to right foot looks worse because wound and plantar foot is macerated and wet with peeling skin sloughing. No purulence or evidence of new deep infection noted. Skin cleansed with Betadine. Xeroform, Betadine soaked 4 x 4's and a dry sterile dressing applied to the left lower extremity. Betadine packed into the right incision with a dry sterile dressing. He understands if the dressing gets wet it will need t
--- NOTE | 2020-03-13 14:50 | HMH.DCSUM ---
General - General Admission date:: 03/12/20 Discharge date: 03/13/20 HPI HPI: 44-year-old male presented to the emergency department with pain in his right foot. Patient states he had a surgery for an abscess last week with Dr Karimi. Over the past 24 hours he has developed increasing sharp pain on the top of his foot not relieved with pain meds. Pain is described as unbearable. Radiates into the top of his foot. Pt states he has been doing wound changes at home. Pt states he had a follow-up [address] Arias. No concerns at that time but did mention maybe more surgery. Patient is taking doxycycline as prescribed. Is taking [place] for pain. Denies fevers, chills, nausea, vomiting. Patient does not have diabetes but was told he has some blood flow issues to legs. Denies history of MRSA abscesses. Hospital Course Hospital Course: Laboratory Tests 03/12/20 03/12/20 03/12/20 19:18 19:18 19:18 WBC 3.6 L RBC 3.34 L Hgb 11.1 L Hct 33.5 L MCV 100.2 H MCH 33.3 H MCHC 33.3 RDW 15.7 Plt Count 116 L MPV 8.0 Neut % (Auto) 64.1 Lymph % (Auto) 23.1 [place] % (Auto) 5.2 Eos % (Auto) 7.1 Baso % (Auto) 0.5 Neut # (Auto) 2.3 Lymph # (Auto) 0.8 [place] # (Auto) 0.2 Eos # (Auto) 0.3 Baso # (Auto) 0.0 Sodium 138 Potassium 3.2 L Chloride 104 Carbon Dioxide 28 Anion Gap 9.2 BUN 10 Creatinine 0.60 L Estimated Creat Clear 257 Estimated GFR 145 Est GFR ( Amer) 176 Glucose 108 H Lactate 1.5 Calcium 8.4 Magnesium Total Bilirubin 2.0 H AST 73 H ALT 36 Alkaline Phosphatase 278 H C-Reactive Protein 19.6 H Total Protein 6.9 Albumin 2.8 L Globulin 4.1 H Albumin/Globulin Ratio 0.7 L 03/13/20 03/13/20 03/13/20 06:43 06:43 06:43 WBC 2.6 L D RBC 3.06 L Hgb 10.6 L Hct 31.6 L MCV 103.0 H MCH 34.7 H MCHC 33.7 RDW 15.3 Plt Count 96 L MPV 8.2 Neut % (Auto) 66.5 Lymph % (Auto) 17.9 [place] % (Auto) 7.6 Eos % (Auto) 7.5 Baso % (Auto) 0.4 Neut # (Auto) 1.7 L Lymph # (Auto) 0.5 L [place] # (Auto) 0.2 Eos # (Auto) 0.2 Baso # (Auto) 0.0 Sodium 135 L Potassium 3.2 L Chloride 103 Carbon Dioxide 32 H Anion Gap 3.2 L BUN 9 Creatinine 0.60 L Estimated Creat Clear 252 Estimated GFR 145 Est GFR ( Amer) 176 Glucose 109 H Lactate Calcium 7.6 L Magnesium 1.6 Total Bilirubin AST ALT Alkaline Phosphatase C-Reactive Protein Total Protein Albumin Globulin Albumin/Globulin Ratio x ray: foot FINDINGS: No fracture or dislocation. No lytic or blastic change. There is normal mineralization. The joint spaces are well-preserved. No significant degenerative/arthritic changes. No erosive changes evident. Moderate-sized plantar calcaneal spur is again seen. Other findings:There is interval increased diffuse possible inflammatory soft tissue edema/swelling of the right foot. IMPRESSION: 1. Interval diffusely increased possible inflammatory soft tissue edema/swelling of the right foot. 2. No demonstrated fracture, bony destruction/evidence of osteomyelitis or dislocation. cardiology consult: Assessment and plan all Dx Assessment and Plan for all problems:: 1. Poorly healing wound of RLE s/p surgery one week ago. With palpable pulses of RLE, doubt there is significant PAD at play in this process. At this time, we would not recommend angiography, but if Dr. Karimi feels there is not adequate blood flow to support his best chance of healing then we will reconsider angiography. 2. Lymphedema of LE's. Will give a dose of lasix and elevate the legs to help with the swelling. Reduce IVF to 75 ml/hr since pt able to eat/drink. 3. HTN, poorly controlled at this time, in part due to pain from LE's. Continue metoprolol and lisinopril/HCTZ but increas
[2020-03-13 16:00] VITALS: BP 162/98; PULSE 88; RESP 20; TEMP 36.6; O2SAT 100
--- NOTE | 2020-03-13 19:09 | PC.NURSE ---
report given to karolina
[2020-03-13 19:47] VITALS: BP 141/72; PULSE 83; RESP 16; TEMP 37.1; O2SAT 100
--- NOTE | 2020-03-13 19:47 | PC.NURSE ---
193- THIS RN CONTACTED BY BARBARA FROM [facility] STATING THAT THEY WILL BE UNABLE TO TRANSFER PT. NOR[place]. 1944-CONTACTED [facility] TO REPORT THAT [facility] HAS REFUSED TRANSFER FOR THE MORNING. [facility] HAS AGREED TO TRANSFER PT. APPROXIMATELY 1000 TOMORROW.
[2020-03-13 20:00] VITALS: O2SAT 100
--- NOTE | 2020-03-13 22:35 | PC.NURSE ---
1939 contacted Evie at [facility] to notify them that [facility] was unable to transfer pt tonight but is able to do transfer @ 10am tomorrow morning. Evie stated that [facility] was unable to complete transfer and accepted [facility] to complete transfer. [address] Stanton that pt was unable to be transfer tonight and would be transfer in morning @ 10am. no new orders at this time. 1949 notified Barbara @ [facility] that pt wouldn't be transferred this evening due to transfer truck unavailable until 10am tomorrow morning.
--- NOTE | 2020-03-14 03:02 | PC.NURSE ---
Pt A&OX4. lungs are wheezing throughout. pt has c/o bilateral leg pain and has been medicated per MAR. Pt has scattered scabs bilaterally on legs kerlex in place. 18G LAC infusing LR @ 75ml/hr. Pt has a bed assignment at [facility] to be transfer in AM.
[2020-03-14 04:00] VITALS: BP 122/65; PULSE 64; RESP 17; TEMP 36.7; O2SAT 98
[2020-03-14 05:31] VITALS: BMI 37.8
[2020-03-14 07:34] VITALS: BP 130/78; PULSE 82; RESP 19; TEMP 36.9; O2SAT 99
--- NOTE | 2020-03-14 09:18 | HMH.ACPN2 ---
Internal Medicine - PN: Subj *Date: 03/14/20 *Time: 09:18 Interval history: We have arranged transfer to [place] in [place]. Transportation was delayed yesterday, he is to be leaving very soon this morning. Podiatry input is reviewed. Dr. Arias recommended transfer for definitive wound management, which would include possible further surgical debridement and evaluation for a wound VAC. He may need further refinement of his antibiotic coverage. He had an uneventful night, is afebrile. Chest pain no shortness of breath. His pain is adequately modulated on his current regimen. He was very uncomfortable at the time of his presentation. Exam Vital signs and Labs for Last 24 Hours: Temp Pulse Resp BP Pulse Ox 98.5 F 82 19 130/78 99 03/14/20 07:34 03/14/20 07:34 03/14/20 07:34 03/14/20 07:34 03/14/20 07:34 Laboratory Results - last 24 hr 03/13/20 06:43: Magnesium 1.6 I & O for Last 24 hours: Intake & Output 03/11/20 03/12/20 03/13/20 03/14/20 23:59 23:59 23:59 23:59 Intake Total 480 / 960 3006 / 3466 1837 / 1837 Output Total 700 / 1100 4050 / 4450 400 / 400 Balance -220 / -140 -1044 / -984 1437 / 1437 Weight 255 lb 4.725 oz 255 lb 8.252 oz 255 lb 8.252 oz Microbiology Reports for the Last 24 Hours: Microbiology 03/12/20 19:18 Blood Blood Culture - Preliminary Gram Positive Cocci 03/12/20 19:18 Blood Blood Culture - Preliminary - Constitutional no acute distress - *Routine HEENT Exam Head: Present: normocephalic, atraumatic Eye: Absent: conjunctival icterus - *Routine Neck Exam Present: supple, full ROM. Absent: JVD - *Routine Respiratory Exam Present: prolonged expiratory phase, wheezes. Absent: accessory muscle use - *Routine Cardiovascular Exam Present: RRR. Absent: murmur - *Routine Abdominal Exam Present: soft. Absent: tenderness, organomegaly - *Routine Extremities Exam Absent: cyanosis (Dressings are applied to both bilateral extremities. The wounds have been well described by podiatry.) - *Routine Skin Exam Present: intact, scars, wounds. Absent: jaundice - *Routine Neurological Exam Present: alert, oriented X3, moving all extremities, normal tone, normal speech. Absent: altered mental status, clonus, facial asymmetry - Routine Psychiatric Exam Present: normal affect, normal thought process, cooperative, good insight Assessment and Plan (1) Lymphedema Current visit: Yes Status: Acute Category: Medical Code(s): I89.0 - Lymphedema, not elsewhere classified (2) Wound of right foot Current visit: Yes Status: Acute Category: Medical Code(s): S91.301A - Unspecified open wound, right foot, initial encounter (3) Abscess of right foot Current visit: No Status: Acute Category: Medical Code(s): L02.611 - Cutaneous abscess of right foot (4) Bilateral lower extremity edema Current visit: No Status: Acute Category: Medical Code(s): R60.0 - Localized edema (5) Bilateral lower leg cellulitis Current visit: No Status: Acute Category: Medical Code(s): L03.116 - Cellulitis of left lower limb; L03.115 - Cellulitis of right lower limb (6) Carbapenem-resistant Enterobacteriaceae infection Current visit: No Status: Acute Category: Medical Code(s): A49.8 - Other bacterial infections of unspecified site; Z16.24 - Resistance to multiple antibiotics (7) History of hypertension Current visit: No Status: Acute Category: Medical Code(s): Z86.79 - Personal history of other diseases of the circulatory system (8) Obesity Current visit: No Status: Acute Qualifiers: Obesity type: due to excess calories Obesity classification: adult class 3 (BMI >= 40) Serious obesity comorbidity presence: with serious comorbidity Body mass index: BMI 40.0-44.9 Qualified Code(s): E66.01 - Morbid (severe) obesity due to excess calories; Z68.41 - Body mass index (BMI) 40.0-
--- NOTE | 2020-03-14 10:46 | HMH.PHACONS ---
- Pharmacy Consult Date: 03/14/20 Time: 10:46 Referring provider: DR. LEBLANC Reason for Consult:: VANCOMYCIN DOSING Allergies and ADEs:: Allergies Allergy/AdvReac Type Severity Reaction Status Date / Time codeine Allergy Hives Verified 03/12/20 19:25 guaifenesin [From Mucinex] Allergy SWELLS Verified 03/12/20 19:25 ketorolac [From Toradol] Allergy Migraine Verified 03/12/20 19:25 Home Medications:: Home Medications Medication Instructions Recorded Confirmed Type Lisinopril/Hydrochlorothiazide 1 tab PO DAILY 03/04/20 03/13/20 History [Zestoretic 10/12.5mg tablet] levofloxacin 750 mg tablet 750 mg PO DAILY 03/09/20 03/12/20 History oxycodone-acetaminophen 7.5 mg-325 1 tab PO Q4-6H PRN #30 tab 03/09/20 03/12/20 Rx mg tablet Doxycycline Hyclate [Vibra-Tab 100 mg PO BID 03/12/20 03/12/20 History 100mg tablet] Metoprolol Succinate [Metoprolol 50 mg PO DAILY 03/13/20 03/13/20 History Succinate 50mg Tablet*] Height: 1.75 m Weight: 115.9 kg Laboratory Results:: Laboratory Results - last 24 hr 03/13/20 06:43: Magnesium 1.6 Medical History: Reports:: Chronic Obstructive Pulmonary Disease (COPD), Hypertension, MRSA Denies:: Diabetes Mellitus Type 1, Diabetes Mellitus Type 2 Assessment and Plan (1) Lymphedema Current visit: Yes Status: Acute Category: Medical Code(s): I89.0 - Lymphedema, not elsewhere classified (2) Wound of right foot Current visit: Yes Status: Acute Category: Medical Code(s): S91.301A - Unspecified open wound, right foot, initial encounter (3) Abscess of right foot Current visit: No Status: Acute Category: Medical Code(s): L02.611 - Cutaneous abscess of right foot (4) Bilateral lower extremity edema Current visit: No Status: Acute Category: Medical Code(s): R60.0 - Localized edema (5) Bilateral lower leg cellulitis Current visit: No Status: Acute Category: Medical Code(s): L03.116 - Cellulitis of left lower limb; L03.115 - Cellulitis of right lower limb (6) Carbapenem-resistant Enterobacteriaceae infection Current visit: No Status: Acute Category: Medical Code(s): A49.8 - Other bacterial infections of unspecified site; Z16.24 - Resistance to multiple antibiotics (7) History of hypertension Current visit: No Status: Acute Category: Medical Code(s): Z86.79 - Personal history of other diseases of the circulatory system (8) Obesity Current visit: No Status: Acute Qualifiers: Obesity type: due to excess calories Obesity classification: adult class 3 (BMI >= 40) Serious obesity comorbidity presence: with serious comorbidity Body mass index: BMI 40.0-44.9 Qualified Code(s): E66.01 - Morbid (severe) obesity due to excess calories; Z68.41 - Body mass index (BMI) 40.0-44.9, adult Category: Medical Code(s): E66.9 - Obesity, unspecified (9) Serratia marcescens infection Current visit: No Status: Acute Category: Medical Code(s): A48.8 - Other specified bacterial diseases (10) Tobacco use Current visit: No Status: Acute Category: Social Hx Code(s): Z72.0 - Tobacco use (11) COPD (chronic obstructive pulmonary disease) Current visit: No Status: Chronic Qualifiers: COPD type: unspecified COPD Qualified Code(s): J44.9 - Chronic obstructive pulmonary disease, unspecified Category: Medical Code(s): J44.9 - Chronic obstructive pulmonary disease, unspecified - Assessment and plan all Dx Assessment and Plan for all problems:: BASED ON PATIENT FACTORS, RECOMMEND INITIATING VANCOMYCIN AT 2,000MG EVERY 8 HOURS. WILL OBTAIN TROUGH LEVEL PRIOR TO FOURTH DOSE. PHARMACY WILL ADJUST DOSE AT THAT POINT APPROPRIATE. -SILVA BOWLES PHARMD
--- NOTE | 2020-03-14 11:46 | PC.NURSE ---
After multiple conversations with several different EMS Services, [facility] and [facility], transportation was unable to be located r/t availability of EC Units. Pt Transport status changed from BLS to ALS per Mandi Pierson ANRP at approx 0950. Again no transportation able to be located. Mandi Pierson states that pt potentially has easily communicable infectious disease and needs to be transported for care from podiatry at infectious disease. Leonard states that it is ok to transport pt to [facility] via air ambulance. [facility] [employer] contacted at approx 1100. Helicopter in route to [facility] at 1110. [facility] arrived at [facility] at approx 1130. pt left with [facility] crew at 1150
[2020-03-14 19:25] LABS: Folate 12.5 ng/mL (>3.0); Vitamin B12 634 pg/mL (232-1245)
== END 2020-03-14 11:45 | disposition short-term general hospital (02) | DRG 602 ==
LOC: ER 20:11 → 2ND 03-13 05:58
PROVIDERS: Physician Assistant; Admitting Provider Family Medicine; Emergency Provider Emergency Medicine; PCP Emergency Medicine; Visit Provider Emergency Medicine
DX: L02.611 Cutaneous abscess of right foot (principal); M72.6 Necrotizing fasciitis; L03.116 Cellulitis of left lower limb; L03.115 Cellulitis of right lower limb; Z16.24 Resistance to multiple antibiotics; I89.0 Lymphedema, not elsewhere classified; Z72.0 Tobacco use; J44.9 Chronic obstructive pulmonary disease, unspecified; I10 Essential (primary) hypertension; B95.7 Other staphylococcus as the cause of diseases classified elsewhere; B96.89 Other specified bacterial agents as the cause of diseases classified elsewhere
CPT/HCPCS: 36415; 73630; 80048; 80053; 82607; 82746; 83605; 83735; 85025; 86140; 87040; 87077; 87186; 94640; 96365; 96375; 96376; 99284; J2020; J2543; J3370

== ENCOUNTER 2020-03-24 18:22 | Inpatient (IN) | payer MEDICARE, MEDICAID, SELFPAY ==
[2020-03-24] VITALS (8 sets, daily range): BP systolic 121–171; BP diastolic 69–127; PULSE 75–99; RESP 15–18; TEMP 36.7; O2SAT 90–99; BMI 36.9
--- NOTE | 2020-03-24 18:59 | PC.NURSE ---
Speaking with Italo sarmiento from pharmacy about vanc dosing
--- NOTE | 2020-03-24 19:04 | PC.NURSE ---
Italo advises pt needs 2 gram loading dose and maintenance dose of 1.75 grams every 12 hours.
[2020-03-24 19:09] LABS: Basophils % 0.6 % (0.1-2.0); Eosinophils # 0.3 K/mm3 (0.0-0.4); Eosinophils % 6.6 % (0.1-12.0); Hematocrit 24.6 % (42.0-52.0); Hemoglobin 8.3 g/dL (14.1-18.0); Lymphocytes # 1.1 K/mm3 (0.7-4.5); Lymphocytes % 26.6 % (10-50); Mean Corpuscular HGB Conc 33.9 g/dL (31.8-35.4); Mean Corpuscular Hemoglobin 33.3 pg (27.0-31.2); Mean Platelet Volume 8.3 fl (7.4-10.4); Monocytes # 0.3 K/mm3 (0.1-1.0); Monocytes % 6.7 % (1.7-9.3); Neutrophils # 2.5 K/mm3 (1.8-7.8); Neutrophils % 59.6 % (37.0-80.0); Platelet Count 102 K/mm3 (142-424); Red Blood Count 2.51 M/mm3 (4.60-6.20); Red Cell Distribution Width 15.5 % (11.5-17.5); White Blood Count 4.1 K/mm3 (4.8-10.8)
[2020-03-24 19:15] LABS: Lactic Acid 1.4 mmol/L (0.7-2.1)
[2020-03-24 19:16] LABS: Alanine Aminotransferase 36 U/L (12-78); Albumin Level 2.8 g/dl (3.5-5.0); Albumin/Globulin Ratio 0.7 (1.1-1.8); Alkaline Phosphatase 210 U/L (38-126); Anion Gap 6.6 mEq/L (5-15); Aspartate Amino Transferase 71 U/L (17-59); Bilirubin,Total 2.5 mg/dl (0.2-1.3); Blood Urea Nitrogen 13 mg/dl (9-20); Calcium 8.1 mg/dl (8.4-10.2); Carbon Dioxide 33 mmol/L (22.0-30.0); Chloride 100 mmol/L (98-107); Creatinine Clearance Estimated 185 mL/min (50-200); Estimated Glomerular Filt Rate 104 ml/min (>60); GFR (African American) 126 ML/MIN (>60); Globulin 4.1 g/dL (1.3-3.2); Glucose 97 mg/dl (74-100); Sodium 137 mmol/L (136-145); Total Protein,Serum 6.9 g/dl (6.3-8.2)
--- NOTE | 2020-03-24 19:20 | PC.NURSE ---
received report from day nurse. wounds uncovered per md request. notable tendon exposure. received critical potassium and md overheard and was notified. nw orders for ns+ 20kcl received.
[2020-03-24 19:21] LABS: Potassium 2.6 mmoL/L (3.5-5.1)
--- NOTE | 2020-03-24 19:33 | PC.NURSE ---
order changed to a run of potassium chloride at 10 meq
--- NOTE | 2020-03-24 19:41 | PC.NURSE ---
added oxygen to pain meds
--- NOTE | 2020-03-24 20:03 | HMH.EDGENADL ---
ED Disposition Clinical Impression: Cellulitis, Obesity, Tobacco use, Bilateral lower leg cellulitis, Bilateral lower extremity edema, Abscess of right foot, Wound of right foot, Chronic pain Disposition: Admitted as Observation Condition on Discharge: Good Instructions: Cellulitis Referrals: Louie Resendez MD [Primary Care Provider] - - Critical Care Critical Care Time: No Attestation: On 03/24/20, the high probability of a clinically significant, sudden or life threatening deterioration of the following system(s) required my full and direct attention, intervention and personal management. The time I documented below is in addition to time spent performing reported procedures but includes the following listed in this critical care notation. Medical Decision Making - Medical Records Medical records reviewed: Yes: I reviewed the patient's medical records. - Joshua Inquiry Pt receiving controlled substance: No Vital Signs: 03/24/20 18:44 03/24/20 19:31 Temperature 98.1 F Temperature Source Oral Pulse Rate [Right] 99 H 91 H Respiratory Rate 16 16 Blood Pressure [Right Arm] 171/116 H 163/127 H Blood Pressure Mean [Right Arm] 134 139 Blood Pressure Source [Right Arm] Automatic Cuff Automatic Cuff Blood Pressure Position [Right Arm] Sitting Sitting 02 Sat by Pulse Oximetry 99 97 Oxygen Delivery Method Room Air Room Air - Lab Data Lab results reviewed: Yes: I reviewed the patient's lab results. Lab Results 03/24/20 18:55: WBC 4.1 L, RBC 2.51 L, Hgb 8.3 L, Hct 24.6 L, MCV 98.0 H, MCH 33.3 H, MCHC 33.9, RDW 15.5, Plt Count 102 L, MPV 8.3, Neut % (Auto) 59.6, Lymph % (Auto) 26.6, Mcclain % (Auto) 6.7, Eos % (Auto) 6.6, Baso % (Auto) 0.6, Neut # (Auto) 2.5, Lymph # (Auto) 1.1, Mcclain # (Auto) 0.3, Eos # (Auto) 0.3, Baso # (Auto) 0.0 03/24/20 18:55: Sodium 137, Potassium 2.6 L*, Chloride 100, Carbon Dioxide 33 H, Anion Gap 6.6, BUN 13, Creatinine 0.80, Estimated Creat Clear 185, Estimated GFR 104, Est GFR ( Amer) 126, Glucose 97, Calcium 8.1 L, Total Bilirubin 2.5 H, AST 71 H, ALT 36, Alkaline Phosphatase 210 H, Total Protein 6.9, Albumin 2.8 L, Globulin 4.1 H, Albumin/Globulin Ratio 0.7 L 03/24/20 18:55: Lactate 1.4 Result diagrams: 03/24/20 18:55 03/24/20 18:55 Orders (Tests/Meds): ED MEDICATIONS Generic Name Dose Route Start Last Admin Trade Name Freq PRN Reason Stop Dose Admin Sodium Chloride 1,000 mls @ 999 mls/hr 03/24/20 18:45 03/24/20 19:18 Sod Chlor 0.9% 1000ml Bag IV 03/24/20 19:45 999 mls/hr .Q1H1M CJ Administration Levofloxacin/Dextrose 750 mg in 150 mls @ 100 mls/hr 03/24/20 19:00 03/24/20 19:18 Levofloxacin 750mg/150ml Premix IV 04/07/20 18:59 100 mls/hr Q24H CJ Administration Protocol Vancomycin HCl 2,000 mg/ 250 mls @ 125 mls/hr 03/24/20 19:03 Sodium Chloride IV 03/24/20 21:02 ONCE ONE Protocol Potassium Chloride/Water 100 mls @ 100 mls/hr 03/24/20 19:27 03/24/20 19:36 Potassium Chloride 10meq/100ml Ivpb IV 03/24/20 20:26 100 mls/hr ONCE ONE Administration Vancomycin HCl 1,750 mg/ 250 mls @ 125 mls/hr 03/25/20 08:00 Sodium Chloride IV 03/25/20 09:59 Q12 ONE Protocol Miscellaneous 1 each 03/24/20 19:15 Vancomycin Consult Request * 04/23/20 19:14 CONSULT PHARMACY CJ Discontinued Medications Generic Name Dose Route Start Last Admin Trade Name Freq PRN Reason Stop Dose Admin Hydromorphone HCl 1 mg 03/24/20 19:37 03/24/20 19:38 Dilaudid 2mg/Ml Syringe IV 03/24/20 19:38 1 mg ONCE ONE Administration Hydromorphone HCl 1 mg 03/24/20 19:47 03/24/20 19:50 Dilaudid 2mg/Ml Syringe IV 03/24/20 19:48 1 mg ONCE ONE Administration Morphine Sulfate 4 mg 03/24/20 18:58 03/24/20 19:18 Morphine 4mg/Ml Syringe IV 03/24/20 18:59 4 mg ONCE ONE Administration Ondansetron HCl 4 mg 03/24/20 18:58 03/24/20 19:18 Zofran 4mg/2ml Vial IV 03/24/20 18:59 4 mg ONCE ONE
[2020-03-24 20:17] LABS: Adenovirus,PCR Not Detected (NotDetected); Bordetella Pertussis Not Detected (NotDetected); Chlamydophila Pneumoniae, PCR Not Detected (NotDetected); Coronavirus 19, PCR Not Detected (NotDetected); Coronavirus 229E Not Detected (NotDetected); Coronavirus NL63 Not Detected (NotDetected); Coronavirus OC43 Not Detected (NotDetected); Coronovirus HKU1,PCR Not Detected (NotDetected); Human Metapneumovirus Not Detected (NotDetected); Influenza A, PCR Not Detected (NotDetected); Influenza AH1, 2009 Not Detected (NotDetected); Influenza AH1, PCR Not Detected (NotDetected); Influenza AH3,PCR Not Detected (NotDetected); Influenza B, PCR Not Detected (NotDetected); Mycoplasma Pneumoniae, PCR Not Detected (NotDetected); Parainfluenza 1, PCR Not Detected (NotDetected); Parainfluenza 2, PCR Not Detected (NotDetected); Parainfluenza 3, PCR Not Detected (NotDetected); Parainfluenza 4, PCR Not Detected (NotDetected); Respiratory Syncytial Virus Not Detected (NotDetected); Rhinovirus/Enterovirus Not Detected (NotDetected)
--- NOTE | 2020-03-24 21:00 | CT_ITS ---
PROCEDURE: CT FOOT RT WO CON CLINICAL HISTORY: CELLULITIS cellulitis of the right foot, pain swelling and redness COMPARISON: CR XR FOOT RT MIN 3V from 03/24/2020 TECHNIQUE: The Axial images obtained with sagittal and coronal reformats. All CT scans at the facility use one or more dose reduction, viz: automated exposure control, ma/kV adjustment per patient size (including targeted exams where dose is matched to indication, i.e. head), or iterative reconstruction technique. FINDINGS: No fracture or dislocation. No osteolysis or periostitis. Nonspecific soft tissue swelling in the right forefoot midfoot and hindfoot which may be related to cellulitis. There dorsal surgical clips near the 2nd and 3rd MTP joints with soft tissue irregularity in the dorsal forefoot which may represent soft tissue ulceration or surgical wound with soft tissue defect at this area. IMPRESSION: 1. No evidence of osteomyelitis or septic joint. 2. Nonspecific soft tissue swelling which may represent cellulitis. 3. Soft tissue defect along the dorsal aspect of the foot at the 2nd and 3rd metatarsophalangeal joints. No obvious abscess. Abscess evaluation is limited without IV contrast. Dictated b Jonnathan Meredith MD 03/25/2020 09:16 Jonnathan Meredith MD in OV 03/25/2020 09:16
[2020-03-24 22:26] LABS: C-Reactive Protein 15.4 mg/L (0-4)
--- NOTE | 2020-03-24 22:29 | PC.NURSE ---
waiting on covid results
[2020-03-24 22:46] LABS: Erythrocyte Sedimentation Rate 98 mm/hr (0-15)
--- NOTE | 2020-03-24 22:58 | XR_ITS ---
PROCEDURE: XR FOOT RT MIN 3V CLINICAL INDICATION: Wound Pain redness and swelling, wound COMPARISON: CR XR FOOT RT MIN 3V from 03/04/2020 CR XR FOOT RT MIN 3V from 03/12/2020 FINDINGS: Multiple surgical clips are present along the dorsal aspect of the foot along the proximal phalanx of the 2nd and 3rd digits. There is a prominent soft tissue defect at this area. No bony destructive process. No fracture or dislocation. IMPRESSION: Soft tissue defect along the dorsal aspect of the foot with multiple surgical clips with no acute bony anomaly. Dictated b Jonnathan Meredith MD 03/25/2020 06:16 Jonnathan Meredith MD in OV 03/25/2020 06:16
--- NOTE | 2020-03-24 23:56 | PC.NURSE ---
PT ARRIVED TO THE FLOOR VIA STRETCHER FROM ED [id number].
[2020-03-25] VITALS (26 sets, daily range): BP systolic 110–145; BP diastolic 54–112; PULSE 61–83; RESP 14–20; TEMP 36.3–36.8; O2SAT 96–100; BMI 37.8; BMI 37.6
--- NOTE | 2020-03-25 06:10 | PC.NURSE ---
A&OX4. PT HAS TOLERATED ROOM AIR WELL THROUGHOUT SHIFT. RESPIRATIONS REGULAR AND UNLABORED. LUNG SOUNDS NOTED WITH WHEEZING THROUGHOUT. NO COUGH NOTED. HEART RATE REGULAR. HAND BUILDING ENGINEER EQUAL. +1 PITTING EDEMA IN BLE. PT REFUSED TEDS. OPEN AREA NOTED TO TOP OF R FOOT WITH TENDON AND BONE SHOWING. PICTURES WERE TAKEN AND PLACED IN THE PATIENT'S CHART. AREA IS 61/2 CM BY 6CM. DRESSED W PETROLATUM GAUZE STRIP, ABD PAD, NONADHESIVE PAD, KERLEX, AND COBAN. DRESSING CDI. 2 HEALING SORES NOTED TO LLE. ONE IS 2CM X 3CM AND ONE IS 2CM X 2CM. HEALED SCAR NOTED TO R SIDE OF FOREHEAD R/T PREVIOUS MOPED INCIDENT. ACTIVE BOWEL SOUNDS HEARD IN ALL 4 QUADRANTS. SOFT AND NONTENDER ABDOMEN. PT VOIDS PER URINAL. CLEAR YELLOW URINE NOTED. PT MOVES INDEPENDENTLY IN BED AND AROUND THE ROOM. NO REPORTS OF PAIN THIS SHIFT. PT HAS RESTED WELL THROUGHOUT SHIFT. PT HAS REMAINED NPO SINCE MIDNIGHT. PT RECEIVED BATH. PT HAS REMAINED AFEBRILE. PT IS LYING IN BED W CALL LIGHT WITHIN REACH. BED IN LOWEST POSITION. VSS. NO CONCERNS AT THIS TIME. WILL CONTINUE TO MONITOR.
--- NOTE | 2020-03-25 07:22 | HMH.PHAVTE ---
[facility] Pharmacy VTE Monitoring - Patient Demographics Admission date: 03/24/20 Report Date: 03/25/20 Time: 07:22 Allergies/Adverse Reactions: Patient Allergies codeine Allergy (Verified 03/24/20 18:48) Hives guaifenesin [From Mucinex] Allergy (Verified 03/24/20 18:48) SWELLS ketorolac [From Toradol] Allergy (Verified 03/24/20 18:48) Migraine Height: 1.75 m Weight: 115.241 kg Patient Problems: Current Active Problems Cellulitis (Acute) Obese (Acute) Tobacco use (Acute) Bilateral lower leg cellulitis (Acute) Bilateral lower extremity edema (Acute) Abscess of right foot (Acute) Wound of right foot (Acute) Chronic pain (Chronic) - VTE Risk Labs: VTE Related Lab Results Hgb 8.3 g/dL (14.1-18.0) L 03/24/20 18:55 Hct 24.6 % (42.0-52.0) L 03/24/20 18:55 Plt Count 102 K/mm3 (142-424) L 03/24/20 18:55 BUN 13 mg/dl (9-20) 03/24/20 18:55 Creatinine 0.80 mg/dl (0.66-1.25) 03/24/20 18:55 Estimated Creat Clear 185 mL/min (50-200) 03/24/20 18:55 Was VTE Risk Assessment Performed: Yes VTE Score: 5 VTE Risk Level: Low Risk - Prophylaxis VTE Prophylaxis Ordered?: Yes Types of VTE Prophylaxis: TEDS Knee High Location of Applied Device: Left Leg - VTE Diagnosis Confirmed Treatment or plan recommended: Continue Current Treatment
[2020-03-25 07:30] LABS: Basophils % 0.5 % (0.1-2.0); Eosinophils # 0.2 K/mm3 (0.0-0.4); Eosinophils % 8.8 % (0.1-12.0); Hematocrit 25.1 % (42.0-52.0); Hemoglobin 8.2 g/dL (14.1-18.0); Lymphocytes # 0.6 K/mm3 (0.7-4.5); Mean Corpuscular HGB Conc 32.4 g/dL (31.8-35.4); Mean Corpuscular Hemoglobin 32.6 pg (27.0-31.2); Mean Corpuscular Volume 100.3 fl (80-94); Mean Platelet Volume 9.1 fl (7.4-10.4); Monocytes # 0.2 K/mm3 (0.1-1.0); Monocytes % 7.2 % (1.7-9.3); Neutrophils # 1.7 K/mm3 (1.8-7.8); Neutrophils % 62.5 % (37.0-80.0); Platelet Count 79 K/mm3 (142-424); Red Blood Count 2.51 M/mm3 (4.60-6.20); Red Cell Distribution Width 15.3 % (11.5-17.5); White Blood Count 2.8 K/mm3 (4.8-10.8)
[2020-03-25 07:34] LABS: Chloride 104 mmol/L (98-107); Potassium 3.3 mmoL/L (3.5-5.1); Sodium 137 mmol/L (136-145)
[2020-03-25 07:37] LABS: Alanine Aminotransferase 29 U/L (12-78); Albumin Level 2.2 g/dl (3.5-5.0); Albumin/Globulin Ratio 0.6 (1.1-1.8); Alkaline Phosphatase 145 U/L (38-126); Anion Gap 5.3 mEq/L (5-15); Aspartate Amino Transferase 57 U/L (17-59); Bilirubin,Total 2.4 mg/dl (0.2-1.3); Blood Urea Nitrogen 11 mg/dl (9-20); Carbon Dioxide 31 mmol/L (22.0-30.0); Creatinine Clearance Estimated 215 mL/min (50-200); Estimated Glomerular Filt Rate 121 ml/min (>60); GFR (African American) 147 ML/MIN (>60); Globulin 3.7 g/dL (1.3-3.2); Glucose 98 mg/dl (74-100); Total Protein,Serum 5.9 g/dl (6.3-8.2)
--- NOTE | 2020-03-25 07:47 | ECG_ITS ---
APPROVED REPORT Exam: Resting ECG HR:69 bpm ECG Measurements Heart Rate 69 AXES GA 144 P 47 QRSd 112 QRS 61 QT 502 T 65 QTc 537 <Conclusion> Normal sinus rhythm Prolonged QT Abnormal ECG Electronically signed by : Wilfredo Muñoz, 03/25/2020 12:24:46
--- NOTE | 2020-03-25 07:55 | HMH.ORTHOCON ---
*Admission Date: 03/24/20 *Reason for consult:: B/L LE wounds *History of present illness: Mr. Ragland is a 44-year-old male who presents for admission 03/24/2020 via ER. Patient was recently in [facility] x8 days. He subsequently had several operative procedures at that time by Dr. Sharma. He had a incision and drainage and excisional debridement of the right foot wound 03/16/2020. He subsequently had additional debridement with bleeding controlled for uncontrollable surgical site bleeding 03/18/2020. Patient states he was discharged home. He states that he was not set up with home health care. He did not know what to do with the wound and was having pain so he has been soaking it and came back to the hospital last night for excruciating foot and leg pain . Patient states he does not recall having an infectious disease consult, inpatient wound care or the discussion about fpc facility after discharge. Patient had a previous wound debridement 03/05/2020 by myself. When he was admitted 03/12/2020 he was transferred to [place] for advanced wound care which according to the patient he did not get. Medical records requested. [facility] History I have reviewed the patient's past medical history: Yes Medical History: Reports:: Chronic Obstructive Pulmonary Disease (COPD), Hypertension, MRSA Denies:: Cancer, Diabetes Mellitus Type 1, Diabetes Mellitus Type 2 *Have you ever received a pneumonia vaccine?: No *Have you received a flu vaccine this season?: No Other Medical History: Reports: Arthritis, Liver Disease Laterality Cases: Bilateral: Tonsillectomy, Other Other Surgeries: Yes: Ureter Stent, Other (bilateral feet) Amputation: No Fractures: Yes - *Social History Last grade of school completed: GED Smoking Status: Current some day smoker Tobacco Type: cigarettes # Packs/Day (cigarettes): 1 Alcohol Intake: never Substance Use Type: former substance user, opiates, painkillers *Occupational Status:: disabled Housing: house Household Members: family *Travel in the last 8 weeks: None Family Hx:: Cancer, Diabetes, Heart Attack, Hypertension, Kidney Disease, Stroke Review of Systems - Review of Systems Review of systems:: pertinent systems reviewed and negative unless documented below - Constitutional Reports fatigue, Denies chills - Eyes Denies blind spots - ENT Denies abnormal hearing - *Cardiovascular Reports shortness of breath with activity, Denies chest pain - *Respiratory Denies cough, Denies shortness of breath - *Gastrointestinal Reports nausea, Denies abdominal pain - *Genitourinary Denies difficulty urinating - *Musculoskeletal Reports joint swelling - Integumentary/Breasts Reports hair loss, Reports nail changes, Reports dry skin, Reports redness, Reports skin ulcer, Reports wounds - *Neurologic Reports tingling/numbness/burning sensations - Psychiatric Reports depression - Endocrine Denies cold intolerance - Hematologic/Lymphatic Denies easy bleeding - Allergic/Immunologic Reports GI upset with certain foods Meds Home Medications Medication Instructions Recorded Confirmed Type Lisinopril/Hydrochlorothiazide 1 tab PO DAILY 03/04/20 03/25/20 History [Zestoretic 10/12.5mg tablet] Metoprolol Succinate [Metoprolol 50 mg PO DAILY 03/13/20 03/25/20 History Succinate 50mg Tablet*] Oxycodone HCl 15 mg PO Q4HP PRN 03/25/20 03/25/20 History cephALEXin [cephALEXin 500mg 500 mg PO QID 03/25/20 03/25/20 History capsule*] Allergies Allergy/AdvReac Type Severity Reaction Status Date / Time codeine Allergy Hives Verified 03/24/20 18:48 guaifenesin [From Mucinex] Allergy SWELLS Verified 03/24/20 18:48 ketorolac [From Toradol] Allergy Migraine Verified 03/24/20 18:48 Exam Vital signs and Labs for Last 24 Hours: Temp Pulse Resp BP Pulse Ox 97.6 F 72 14 128/72 99 03/25/20 04:00 03/25/20 04:00 03/25/20 04:00 03/25/20 04:00 03/25/20 04:0
--- NOTE | 2020-03-25 08:07 | HMH.HP ---
*Admission Date: 03/24/20 *Chief complaint: Right Foot Pain *History of present illness: 44-year-old male patient presented to the emergency room with complaints of nonhealing right foot wound and increasing pain. Patient was transferred from here to [facility] last week due to services services unavailable here at [facility]. He was discharged last Monday after [place] in [facility] podiatry had seen and performed an I&D of right foot. He was discharged last Monday due to miscommunication patient did not follow-up with home health care and with increasing pain went to ER for pain control. Requested from information from [facility] is limited and Very poor historian. Podiatry has seen this morning and has decided to take him to surgery for an I&D of right foot, from medical standpoint he is cleared for surgery normal echo within the last year, he denies any chest pain shortness of breath abdominal pain. [facility] History Medical History: Reports:: Chronic Obstructive Pulmonary Disease (COPD), Hypertension, MRSA Denies:: Cancer, Diabetes Mellitus Type 1, Diabetes Mellitus Type 2 *Have you ever received a pneumonia vaccine?: No *Have you received a flu vaccine this season?: No Other Medical History: Reports: Arthritis, Liver Disease Laterality Cases: Bilateral: Tonsillectomy, Other Other Surgeries: Yes: Ureter Stent, Other (bilateral feet) Amputation: No Fractures: Yes - *Social History Last grade of school completed: GED Smoking Status: Current some day smoker Tobacco Type: cigarettes # Packs/Day (cigarettes): 1 Alcohol Intake: never Substance Use Type: former substance user, opiates, painkillers *Occupational Status:: disabled Housing: house Household Members: family *Travel in the last 8 weeks: None Family Hx:: Cancer, Diabetes, Heart Attack, Hypertension, Kidney Disease, Stroke Review of Systems - Review of Systems Review of systems:: pertinent systems reviewed and negative unless documented below - Eyes Denies change in vision - ENT Denies ear pain, Denies pain with swallowing - *Cardiovascular Denies chest pain, Denies shortness of breath - *Respiratory Denies chest congestion, Denies shortness of breath - *Gastrointestinal Denies abdominal pain, Denies incontinent of stools - *Genitourinary Denies difficulty urinating - *Musculoskeletal Reports joint pain - Integumentary/Breasts Reports wounds Comments: Multiple open areas LLE and - *Neurologic Reports abnormal walking - Endocrine Denies rapid, pounding, or irregular heartbeat - Hematologic/Lymphatic Denies easy bleeding, Denies easy bruising Meds Home Medications Medication Instructions Recorded Confirmed Type Lisinopril/Hydrochlorothiazide 1 tab PO DAILY 03/04/20 03/25/20 History [Zestoretic /.5mg tablet] Metoprolol Succinate [Metoprolol 50 mg PO DAILY 03/13/20 03/25/20 History Succinate 50mg Tablet*] Oxycodone HCl 15 mg PO Q4HP PRN 03/25/20 03/25/20 History cephALEXin [cephALEXin 500mg 500 mg PO QID 03/25/20 03/25/20 History capsule*] Allergies Allergy/AdvReac Type Severity Reaction Status Date / Time codeine Allergy Hives Verified 03/24/20 18:48 guaifenesin [From Mucinex] Allergy SWELLS Verified 03/24/20 18:48 ketorolac [From Toradol] Allergy Migraine Verified 03/24/20 18:48 Exam Vital signs and Labs for Last 24 Hours: Temp Pulse Resp BP Pulse Ox 97.8 F 70 18 141/68 H 99 03/25/20 07:56 03/25/20 07:56 03/25/20 07:56 03/25/20 07:56 03/25/20 07:56 Laboratory Results - last 24 hr 03/24/20 18:55: WBC 4.1 L, RBC 2.51 L, Hgb 8.3 L, Hct 24.6 L, MCV 98.0 H, MCH 33.3 H, MCHC 33.9, RDW 15.5, Plt Count 102 L, MPV 8.3, Neut % (Auto) 59.6, Lymph % (Auto) 26.6, Jessamine % (Auto) 6.7, Eos % (Auto) 6.6, Baso % (Auto) 0.6, Neut # (Auto) 2.5, Lymph # (Auto) 1.1, Jessamine # (Auto) 0.3, Eos # (Auto) 0.3, Baso # (Auto) 0.0 03/24/20 18:55: Sodium 137, Potassium 2.6 L*, Chloride 100,
--- NOTE | 2020-03-25 08:14 | HMH.PHAINT ---
MEDICATION RECONCILIATION COMPLETED ON PATIENT USING EXTERNAL FILL HISTORY FROM PHARMACY AND DISCHARGE LIST FROM PREVIOUS ADMISSION. -EDILIA NORIEGAD
--- NOTE | 2020-03-25 08:24 | HMH.PHACONS ---
- Pharmacy Consult Date: 03/25/20 Time: 08:24 Referring provider: DR. ROPER Reason for Consult:: VANCOMYCIN DOSING Allergies and ADEs:: Allergies Allergy/AdvReac Type Severity Reaction Status Date / Time codeine Allergy Hives Verified 03/24/20 18:48 guaifenesin [From Mucinex] Allergy SWELLS Verified 03/24/20 18:48 ketorolac [From Toradol] Allergy Migraine Verified 03/24/20 18:48 Home Medications:: Home Medications Medication Instructions Recorded Confirmed Type Lisinopril/Hydrochlorothiazide 1 tab PO DAILY 03/04/20 03/25/20 History [Zestoretic 10/12.5mg tablet] Metoprolol Succinate [Metoprolol 50 mg PO DAILY 03/13/20 03/25/20 History Succinate 50mg Tablet*] Oxycodone HCl 15 mg PO Q4HP PRN 03/25/20 03/25/20 History cephALEXin [cephALEXin 500mg 500 mg PO QID 03/25/20 03/25/20 History capsule*] Height: 1.75 m Weight: 115.241 kg Laboratory Results:: Laboratory Results - last 24 hr 03/24/20 18:55: WBC 4.1 L, RBC 2.51 L, Hgb 8.3 L, Hct 24.6 L, MCV 98.0 H, MCH 33.3 H, MCHC 33.9, RDW 15.5, Plt Count 102 L, MPV 8.3, Neut % (Auto) 59.6, Lymph % (Auto) 26.6, Gallia % (Auto) 6.7, Eos % (Auto) 6.6, Baso % (Auto) 0.6, Neut # (Auto) 2.5, Lymph # (Auto) 1.1, Gall[place] # (Auto) 0.3, Eos # (Auto) 0.3, Baso # (Auto) 0.0 03/24/20 18:55: Sodium 137, Potassium 2.6 L*, Chloride 100, Carbon Dioxide 33 H, Anion Gap 6.6, BUN 13, Creatinine 0.80, Estimated Creat Clear 185, Estimated GFR 104, Est GFR ( Amer) 126, Glucose 97, Calcium 8.1 L, Total Bilirubin 2.5 H, AST 71 H, ALT 36, Alkaline Phosphatase 210 H, Total Protein 6.9, Albumin 2.8 L, Globulin 4.1 H, Albumin/Globulin Ratio 0.7 L 03/24/20 18:55: Lactate 1.4 03/24/20 18:55: ESR 98 H 03/24/20 18:55: C-Reactive Protein 15.4 H 03/24/20 20:10: Chlamy pneumoniae PCR Not detected, Adenovirus (PCR) Not detected, B. pertussis DNA (PCR) Not detected, Coronavirus OC43 (PCR) Not detected, Coronavirus HKU1 (PCR) Not detected, Coronavirus 229E (PCR) Not detected, COVID-19 PCR Not detected, Coronavirus NL63 (PCR) Not detected, Human Metapneumovir PCR Not detected, Influenza A (H1) PCR Not detected, Influ A (H1N1/09) PCR Not detected, Influenza A (H3) PCR Not detected, Influenza Type A (PCR) Not detected, Influenza Type B (PCR) Not detected, M. pneumoniae (PCR) Not detected, Parainfluenza 1 (PCR) Not detected, Parainfluenza 2 (PCR) Not detected, Parainfluenza 3 (PCR) Not detected, Parainfluenza 4 (PCR) Not detected, RSV (PCR) Not detected, Entero/Rhino (PCR) Not detected 03/25/20 07:20: WBC 2.8 L D, RBC 2.51 L, Hgb 8.2 L, Hct 25.1 L, MCV 100.3 H, MCH 32.6 H, MCHC 32.4, RDW 15.3, Plt Count 79 L, MPV 9.1, Neut % (Auto) 62.5, Lymph % (Auto) 21.0, Gall[place] % (Auto) 7.2, Eos % (Auto) 8.8, Baso % (Auto) 0.5, Neut # (Auto) 1.7 L, Lymph # (Auto) 0.6 L, Gallia # (Auto) 0.2, Eos # (Auto) 0.2, Baso # (Auto) 0.0 03/25/20 07:20: Sodium 137, Potassium 3.3 L D, Chloride 104, Carbon Dioxide 31 H, Anion Gap 5.3, BUN 11, Creatinine 0.70, Estimated Creat Clear 215, Estimated GFR 121, Est GFR ( Amer) 147, Glucose 98, Calcium 8.0 L, Total Bilirubin 2.4 H, AST 57, ALT 29, Alkaline Phosphatase 145 H, Total Protein 5.9 L, Albumin 2.2 L D, Globulin 3.7 H, Albumin/Globulin Ratio 0.6 L Medical History: Reports:: Chronic Obstructive Pulmonary Disease (COPD), Hypertension, MRSA Denies:: Cancer, Diabetes Mellitus Type 1, Diabetes Mellitus Type 2 Assessment and Plan (1) Sepsis with acute organ dysfunction Current visit: Yes Status: Acute Category: Medical Code(s): A41.9 - Sepsis, unspecified organism; R65.20 - Severe sepsis without septic shock (2) Abscess of right foot Current visit: Yes Status: Acute Category: Medical Code(s): L02.611 - Cutaneous abscess of right foot (3) Bilateral lower extremity edema Current visit: Yes Status: Acute Category: Medical Code(s): R60.0 - Localized edema (4) Bilateral lower leg cellulitis Current visit: Yes Status: Acute Category: Medical Code(s): L03.116 - Cellul
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
--- NOTE | 2020-03-25 09:37 | HMH.ANESCL ---
[facility] Anesthesia Checklist - Patient Identification Patient Identification: Arm Band, Verbal (Name & ) - Structural Data Admitted From: Inpatient Planned Operative Procedure/s: Bilateral foot/ankle wound debridement Consent for Planned Operative Procedure(s) Verified: Yes Verified Documents: Surgical Consent, History and Physical - NPO Status Verified Time NPO: 00:00 - Chart Verification Results Verified: CBC, BMP - Additional verifications Anesthesia Reactions: No - Airway Assessment C-Spine Mobility Assessed: Yes TMJ Mobility Assessed: Yes Dentition: Edentulous - Neurological Assessment Level of Consciousness: Awake, Alert, Appropriate, Follows Commands Hx Seizures: No Numbness or tingling in extremities: No - Anesthesia Plan Anesthesia Risk discussed: Yes Anesthesia Plan: Verified ASA Class: III (Emergent) Anesthesia Type: General [facility] History I have reviewed the patient's past medical history: Yes Medical History: Reports:: Chronic Obstructive Pulmonary Disease (COPD), Hypertension, MRSA Denies:: Cancer, Diabetes Mellitus Type 1, Diabetes Mellitus Type 2 *Have you ever received a pneumonia vaccine?: No *Have you received a flu vaccine this season?: No Other Medical History: Reports: Arthritis, Liver Disease (cirrhosis) Comment:: obesity, cellulitis Anesthesia experience/problems:: No prior complications Laterality Cases: Bilateral: Tonsillectomy, Other Other Surgeries: Yes: Ureter Stent, Other (bilateral feet) Amputation: No Fractures: Yes - *Social History Last grade of school completed: GED Smoking Status: Current some day smoker Tobacco Type: cigarettes # Packs/Day (cigarettes): 1 Alcohol Intake: never Substance Use Type: former substance user, opiates, painkillers *Occupational Status:: disabled Housing: house Household Members: family *Travel in the last 8 weeks: None Family Hx:: Cancer, Diabetes, Heart Attack, Hypertension, Kidney Disease, Stroke
--- NOTE | 2020-03-25 09:40 | P.PN_ITS ---
[facility] Anesthesia Record Part I Intake, IV Amount: 500 Estimated blood loss (mL): 20 Urine output (mL): 0 (NM) Blood Products used (#): none Blood Pressure: 124/73 SaO2: 98 Pulse Rate: 63 Respiratory Rate: 16 Temperature: 97.5 F Patient is:: Awake, Drowsy, Stable Stable to PACU at:: 09:33
--- NOTE | 2020-03-25 11:05 | PC.NURSE ---
see emar for supervisor intermediates
--- NOTE | 2020-03-25 11:49 | XR_ITS ---
PROCEDURE: XR CHEST PORTABLE PICC PLAC CLINICAL HISTORY: Confirm PICC line placement COMPARISON: CR CXR1 CHEST-PORTABLE from 07/07/2014 CR CXR1 CHEST-PORTABLE from 12/28/2014 CR XR CHEST 2V from 03/05/2020 FINDINGS: The cardiomediastinal silhouette and pulmonary vascularity are within normal limits. Right upper extremity PICC line has been inserted. The tip is just past midline on the left in the region of the left brachiocephalic vein. No acute bony abnormalities. IMPRESSION: Right upper extremity PICC line tip is in the region of the left brachiocephalic the vein Dictated b Jonnathan Meredith MD 03/25/2020 14:19 Jonnathan Meredith MD in OV 03/25/2020 14:19
--- NOTE | 2020-03-25 12:44 | PC.NURSE ---
EFRAIN Mccurdy notified of platelet [id number] to PICC insertion; states ok to proceed and she will notify Dr. Lucero as she has left for the day
--- NOTE | 2020-03-25 13:26 | P.PN_ITS ---
[facility] Anesthesia Record Part II Discharge Time: 10:03 Destination: Medical Surgical Department PACU nurse assessment reviewed?: Yes Patient Condition:: Good Anesthesia Complications:: None Swallowing reflex intact?: Yes Cyanosis?: No Blood Pressure: 129/71 Pulse Rate: 64 Temperature: 97.8 F Mental Status: Alert & Oriented Pain level:: 5 Nausea and/or vomitting:: None Intake, IV Amount: 0 (NM)
--- NOTE | 2020-03-25 15:07 | SW/DCPLANNER ---
Addendum entered by [facility] 03/31/20 09:13: I have spoke with Angelita from [facility] this morning....patient will be discharging to [facility] today: accepting MD is Dr Felix. Discharge report will need to be called to [phone]. Discharge summary will need to be faxed to [phone] and [phone]. Addendum entered by [facility] 03/30/20 14:41: Angelita with [facility] has stated they will place their own wound vac on this patient once he is admitted to [facility]. Angelita has also stated that patient will no further COVID testing. Addendum entered by [facility] 03/30/20 12:55: This patient has been accepted to [facility] for tomorrow. I have made Dr Karimi and Dr Resendez aware along with patient. I am waiting for Angelita from [facility] to provide me with unit phone #, fax # and accepting MD. Addendum entered by [facility] 03/30/20 11:05: Updated patient information has been faxed to Angelita at [facility]. Angelita has stated that they are currently waiting on precert for this patient for admission. Addendum entered by [facility] 03/27/20 14:43: Angelita has also requested that wound vac be placed on patient at [facility] over the weekend. This has been relayed to: A Tony, nurse (Russell) and Margarita Humphreys. Patient is agreeable with plan and understands he will be at [facility] over the weekend. I have also informed: Dr Mal Valle and Dr Stanton of plan. Addendum entered by [facility] 03/27/20 14:22: Angelita from [facility] has called stating they can accept this patient pending precert from insurance. Angelita expects to hear back from precert the first of next week. Addendum entered by [facility] 03/27/20 12:45: Angelita called back an hour ago and stated that patient information is currently being reviewed by . Addendum entered by [facility] 03/27/20 10:08: I have attempted to contact Angelita with [facility]. No answer at this time but VM has been left. Updated cultures have been faxed to Angelita this morning. Addendum entered by [facility] 03/26/20 15:48: Angelita with [facility] stated that she will need OT evaluation (completed and faxed) and culture results (pending) prior to making a decision regarding admission. Angelita did mention that she thought this patient would be an excellent candidate for [facility]. Once culture results are back this will be faxed to Angelita. Addendum entered by [facility] 03/26/20 14:18: Angelita with [facility] is here to evaluate this patient. Addendum entered by [facility] 03/26/20 11:28: [facility] does NOT have any male beds at this time. I have also spoke with Jeremie Goldsmith regarding a Medicaid application for this patient. Addendum entered by [facility] 03/26/20 10:56: I will also check with: [facility] Gonzalez, [facility] and [facility] regarding in network benefits. Addendum entered by [facility] 03/26/20 09:39: [facility] is not in network with this patient. Angelita from [facility] has stated she will be here this afternoon to evaluate this patient. Addendum entered by [facility] 03/25/20 17:40: Lashaun with [facility] has stated that this patient does NOT have an in network benefit with their facility. Radha did mention patient potentially being admitted under [facility] pending. Patient stated that he would need time to think prior to making a decision. I am also waiting on a call back from Angelita with [facility] regarding referral. I will also fax patient information to [facility] regarding in network services with this patients insurance. I will follow up with facilities and patient tomorrow morning. Original Note: I have spoke with this patient regarding discharge plans. Dr Karimi has requested placement for this patient for dressing changes and IV antibiotics. I did speak with this patient and he is agreeable to placement at this time. Patient information has been faxed to [facility] and [facility] in [place]. I have spoke with Kenisha
--- NOTE | 2020-03-25 18:20 | PC.NURSE ---
PATIENT A&O X4, LUNGS: MATI UPPER WHEEZING HEARD. PATIENT ARRIVED BACK ON FLOOR FROM SURGERY. BANDAGE ON LEFT LOWER EXTREMITY: CLEAN, DRY AND INTACT. BANDAGE ON RIGHT LOWER EXTREMITY: LARGE AMOUNT OF BETADINE DRAINAGE NOTED. PATIENT ATE AND TOLERATED WELL. PATIENT HAS COMPLAINED OF PAIN 1X DURING THIS RN SHIFT. THIS RN ADMINISTERED PAIN MEDICATIONS. PATIENT RECEIVED A PICC IN THE UPPER RIGHT ARM. PATIENT TOLERATED PROCEDURE WELL. PATIENT HAS CONTINUED THRU THIS RN SHIFT TO HAVE DRAINAGE FROM RLE. THIS RN PLACED ABD PAD ON THE OUTSIDE OF THE LIZZIE BANDAGE AND SECURED IT WITH KERLIX. NO OTHER CONCERNS AT THIS TIME.
[2020-03-26] VITALS (18 sets, daily range): BP systolic 101–143; BP diastolic 48–80; PULSE 60–91; RESP 16–20; TEMP 36.4–36.9; O2SAT 93–100; BMI 39.2
[2020-03-26 06:50] LABS: Chloride 105 mmol/L (98-107); Potassium 3.9 mmoL/L (3.5-5.1); Sodium 136 mmol/L (136-145)
[2020-03-26 06:52] LABS: Blood Urea Nitrogen 16 mg/dl (9-20); Creatinine Clearance Estimated 188 mL/min (50-200); Estimated Glomerular Filt Rate 104 ml/min (>60); GFR (African American) 126 ML/MIN (>60)
[2020-03-26 06:53] LABS: Alanine Aminotransferase 27 U/L (12-78); Albumin Level 2.2 g/dl (3.5-5.0); Albumin/Globulin Ratio 0.6 (1.1-1.8); Alkaline Phosphatase 169 U/L (38-126); Anion Gap 5.9 mEq/L (5-15); Aspartate Amino Transferase 49 U/L (17-59); Calcium 8.2 mg/dl (8.4-10.2); Carbon Dioxide 29 mmol/L (22.0-30.0); Globulin 3.5 g/dL (1.3-3.2); Glucose 113 mg/dl (74-100); Total Protein,Serum 5.7 g/dl (6.3-8.2)
[2020-03-26 07:10] LABS: Basophils % 0.1 % (0.1-2.0); Eosinophils % 0.3 % (0.1-12.0); Lymphocytes # 0.7 K/mm3 (0.7-4.5); Lymphocytes % 11.7 % (10-50); Mean Corpuscular HGB Conc 35.1 g/dL (31.8-35.4); Mean Corpuscular Hemoglobin 33.7 pg (27.0-31.2); Mean Platelet Volume 8.8 fl (7.4-10.4); Monocytes # 0.3 K/mm3 (0.1-1.0); Monocytes % 4.4 % (1.7-9.3); Neutrophils # 4.9 K/mm3 (1.8-7.8); Neutrophils % 83.4 % (37.0-80.0); Platelet Count 92 K/mm3 (142-424); Red Blood Count 2.38 M/mm3 (4.60-6.20); Red Cell Distribution Width 15.4 % (11.5-17.5); White Blood Count 5.8 K/mm3 (4.8-10.8)
[2020-03-26 07:17] LABS: Hematocrit 22.9 % (42.0-52.0)
--- NOTE | 2020-03-26 08:06 | HMH.ACPN2 ---
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 Category: Medical Code(s): L97.519 - Non-pressure chronic ulcer of other part of right foot with unspecified severity (2) Onychogryphosis Current visit: Yes Status: Acute Category: Medical Code(s): L60.2 - Onychogryphosis (3) Bilateral lower extremity edema Current visit: Yes Status: Acute Category: Medical Code(s): R60.0 - Localized edema (4) Bilateral lower leg cellulitis Current visit: Yes Status: Acute Category: Medical Code(s): L03.116 - Cellulitis of left lower limb; L03.115 - Cellulitis of right lower limb (5) Carbapenem-resistant Enterobacteriaceae infection Current visit: No Status: Acute Category: Medical Code(s): A49.8 - Other bacterial infections of unspecified site; Z16.24 - Resistance to multiple antibiotics (6) Nail dystrophy Current visit: No Status: Acute Category: Medical Code(s): L60.3 - Nail dystrophy (7) Obesity Current visit: No Status: Acute Qualifiers: Obesity type: due to excess calories Obesity classification: adult class 3 (BMI >= 40) Serious obesity comorbidity presence: with serious comorbidity Body mass index: BMI 40.0-44.9 Qualified Code(s): E66.01 - Morbid (severe) obesity due to excess calories; Z68.41 - Body mass index (BMI) 40.0-44.9, adult Category: Medical Code(s): E66.9 - Obesity, unspecified (8) Serratia marcescens infection Current visit: No Status: Acute Category: Medical Code(s): A48.8 - Other specified bacterial diseases <Leonard Pierson - Last Filed: 03/26/20 17:16> Internal Medicine - PN: Subj *Date: 03/26/20 *Time: 08:30 Interval history: dressing changes per j gauze Exam Vital signs and Labs for Last 24 Hours: Temp Pulse Resp BP Pulse Ox 98.1 F 68 20 132/75 100 03/26/20 15:45 03/26/20 15:45 03/26/20 15:45 03/26/20 15:45 03/26/20 15:45 Laboratory Results - last 24 hr 03/26/20 06:30: WBC 5.8 D, RBC 2.38 L, Hgb 8.0 L, Hct 22.9 L*, MCV 96.0 H, MCH 33.7 H, MCHC 35.1, RDW 15.4, Plt Count 92 L, MPV 8.8, Neut % (Auto) 83.4 H, Lymph % (Auto) 11.7, Hern[place] % (Auto) 4.4, Eos % (Auto) 0.3, Baso % (Auto) 0.1, Neut # (Auto) 4.9, Lymph # (Auto) 0.7, Hernando # (Auto) 0.3, Eos # (Auto) 0.0, Baso # (Auto) 0.0 03/26/20 06:30: Sodium 136, Potassium 3.9, Chloride 105, Carbon Dioxide 29, Anion Gap 5.9, BUN 16 D, Creatinine 0.80, Estimated Creat Clear 188, Estimated GFR 104, Est GFR ( Amer) 126, Glucose 113 H, Calcium 8.2 L, Total Bilirubin 1.0, AST 49, ALT 27, Alkaline Phosphatase 169 H, Total Protein 5.7 L, Albumin 2.2 L, Globulin 3.5 H, Albumin/Globulin Ratio 0.6 L 03/26/20 08:00: Vancomycin Trough 23.9 H 03/26/20 09:12: Blood Type O Positive, Antibody Screen Negative, Crossmatch (AHG) See Detail 03/26/20 10:33: Blood Type Confirm O Positive 03/26/20 15:45: Hgb 9.0 L D, Hct 26.3 L I & O for Last 24 hours: Intake & Output 03/24/20 03/25/20 03/26/20 03/27/20 11:59 11:59 11:59 11:59 Intake Total 500 / 500 1770 / 1770 0 / 0 Output Total 650 / 650 415 / 415 Balance -150 / -150 1355 / 1355 0 / 0 Weight 254 lb 1 oz 265 lb 5 oz Microbiology Reports for the Last 24 Hours: Microbiology 03/25/20 12:00 Foot,Right - Wound Gram Stain - Final 03/25/20 12:00 Foot,Right - Wound Surgical Biopsy Culture - Preliminary NO GROWTH AFTER 24 HOURS 03/25/20 12:00 Foot,Right - Wound Gram Stain - Final 03/25/20 12:00 Foot,Right - Wound Surgical Biopsy Culture - Preliminary NO GROWTH AFTER 24 HOURS - Constitutional no acute distress, obese - *Routine HEENT Exam He
--- NOTE | 2020-03-26 08:21 | PC.NURSE ---
Did make Dr. Stanton/ Chloé Jimenez, aware of critical H&H 0863.
--- NOTE | 2020-03-26 08:30 | HMH.ORTHPN ---
Subjective Date: 03/26/20 Time: 08:00 Interval history: Patient is doing well this morning, he states he has not slept all night due to foot pain. Patient denies N/V. Vss. Patient is s/p on 03/25/20, Right foot incision and drainage, Right foot deep multiple compartment wound debridement, Right foot percutaneous bone biospy, Right leg ulcer debridement, Left leg ulcer debridement x2, Nail debridement x10, Surgical clips removal. The patient did get his Picc line placed yesterday in his Right upper arm so he can get his IV antibiotics. I will clean and dress the wounds today with Saline and then dressed with Xeroform and dry sterile gauze, kerlix and vamsi wrap. PN: Obj Ex Vital signs: Temp Pulse Resp BP Pulse Ox 98.3 F 71 18 143/80 H 99 03/26/20 07:34 03/26/20 07:34 03/26/20 07:34 03/26/20 07:34 03/26/20 07:34 - Constitutional no acute distress - Routine HEENT Exam Head: Present: normocephalic Eye: Present: PERRL ENT: Present: mucous membranes moist - Routine Neck Exam Present: full ROM, trachea midline - Routine Chest/Breast/Axilla Exam Chest wall: Absent: tenderness - Routine Respiratory Exam Absent: accessory muscle use, respiratory distress - Routine Cardiovascular Exam Present: RRR - Routine Abdominal Exam Present: soft - Routine Extremities Exam Present: edema. Absent: calf tenderness - Detailed Lower Extremity Exam Comments: Right foot dorsal wound: The wound was cleaned this morning using a sterile sailne flush over the site then and pat dry with dry strerile 4x4 gauze, then dressed with xeroform dressing, dry 4x4, kerlix, vamsi wrap measurements: 6.8 x 7.8 x 3.4cm, full thickness right dorsal foot wound, with exposed extensor tendons. Post debridement: wound base 80% granular, 20% fibrotic tissue, exposed extensor tendons. The right leg has several small areas that were debrided and was cleaned out during surgery that were just cleaned today with saline and then dressed like the other areas with Xeroform, dry 4 x 4, Kerlix and Vamsi wrap to the upper extremity. The sites still had some erythema and slight maceration noted to the borders of the wounds but no active drainage. Left leg wounds were cleaned today with saline and were not debrided today. There are 2 wounds noted to the anterior valero. No active purulent drainage or bleeding noted. Wound base is 100% granular. The left anterior medial ulcer measured 3.1 x 2.5 x 0.2 cm. The left anterior lateral ulcer measured 2.1 x 2.5 x 0.2 cm. No purulence, malodor or drainage noted. Xeroform applied followed by dry sterile dressing to the left lower extremity. - Routine Back/Spine/Pelvis Exam Back/Spine: Present: full ROM - Routine Skin Exam Present: erythema, warm, wounds - Routine Neurological Exam Present: oriented X3 - Routine Psychiatric Exam Present: normal affect, cooperative Progress Note: A&P (1) Right foot ulcer Status: Acute Current Visit: No (2) Onychogryphosis Status: Acute Current Visit: Yes (3) Bilateral lower extremity edema Status: Acute Current Visit: Yes (4) Bilateral lower leg cellulitis Status: Acute Current Visit: Yes (5) Carbapenem-resistant Enterobacteriaceae infection Status: Acute Current Visit: No (6) Nail dystrophy Status: Acute Current Visit: No (7) Obesity Status: Acute Current Visit: No (8) Serratia marcescens infection Status: Acute Current Visit: No Assessment and Plan for All Diagnoses:: Discharge/Plan: Dressing changed this morning: Patient is to maintain dressing clean dry and intact. Elevate on two pillows. Hold ice. Continue IV antibiotics, PICC line placed. Non weight bearing to the right lower extremity with DME assistance (walker-physical therapy for gait training and DME evaluation). At the time of discharge patient will need: walker, wound vac arranged, PICC line, IV antibiotics x 4-6 weeks SNF evaluation: patient states he lives al
[2020-03-26 08:40] LABS: Vancomycin,Trough 23.9 ug/mL (5.0-10.0)
--- NOTE | 2020-03-26 08:50 | HMH.PHACONS ---
- Pharmacy Consult Date: 03/26/20 Time: 08:50 Referring provider: DR. ROPER Reason for Consult:: VANCOMYCIN TROUGH LEVEL AND DOSE CHANGE Allergies and ADEs:: Allergies Allergy/AdvReac Type Severity Reaction Status Date / Time codeine Allergy Hives Verified 03/24/20 18:48 guaifenesin [From Mucinex] Allergy SWELLS Verified 03/24/20 18:48 ketorolac [From Toradol] Allergy Migraine Verified 03/24/20 18:48 Home Medications:: Home Medications Medication Instructions Recorded Confirmed Type Lisinopril/Hydrochlorothiazide 1 tab PO DAILY 03/04/20 03/25/20 History [Zestoretic 10/12.5mg tablet] Metoprolol Succinate [Metoprolol 50 mg PO DAILY 03/13/20 03/25/20 History Succinate 50mg Tablet*] Oxycodone HCl 15 mg PO Q4HP PRN 03/25/20 03/25/20 History cephALEXin [cephALEXin 500mg 500 mg PO QID 03/25/20 03/25/20 History capsule*] Height: 1.75 m Weight: 120.344 kg Laboratory Results:: Laboratory Results - last 24 hr 03/26/20 06:30: WBC 5.8 D, RBC 2.38 L, Hgb 8.0 L, Hct 22.9 L*, MCV 96.0 H, MCH 33.7 H, MCHC 35.1, RDW 15.4, Plt Count 92 L, MPV 8.8, Neut % (Auto) 83.4 H, Lymph % (Auto) 11.7, Wake % (Auto) 4.4, Eos % (Auto) 0.3, Baso % (Auto) 0.1, Neut # (Auto) 4.9, Lymph # (Auto) 0.7, Wake # (Auto) 0.3, Eos # (Auto) 0.0, Baso # (Auto) 0.0 03/26/20 06:30: Sodium 136, Potassium 3.9, Chloride 105, Carbon Dioxide 29, Anion Gap 5.9, BUN 16 D, Creatinine 0.80, Estimated Creat Clear 188, Estimated GFR 104, Est GFR ( Amer) 126, Glucose 113 H, Calcium 8.2 L, Total Bilirubin 1.0, AST 49, ALT 27, Alkaline Phosphatase 169 H, Total Protein 5.7 L, Albumin 2.2 L, Globulin 3.5 H, Albumin/Globulin Ratio 0.6 L 03/26/20 08:00: Vancomycin Trough 23.9 H Medical History: Reports:: Chronic Obstructive Pulmonary Disease (COPD), Hypertension, MRSA Denies:: Cancer, Diabetes Mellitus Type 1, Diabetes Mellitus Type 2, Seizures Assessment and Plan (1) Right foot ulcer Current visit: No Status: Acute Qualifiers: Non-pressure ulcer stage: with necrosis of muscle Qualified Code(s): L97.513 - Non-pressure chronic ulcer of other part of right foot with necrosis of muscle Category: Medical Code(s): L97.519 - Non-pressure chronic ulcer of other part of right foot with unspecified severity (2) Onychogryphosis Current visit: Yes Status: Acute Category: Medical Code(s): L60.2 - Onychogryphosis (3) Bilateral lower extremity edema Current visit: Yes Status: Acute Category: Medical Code(s): R60.0 - Localized edema (4) Bilateral lower leg cellulitis Current visit: Yes Status: Acute Category: Medical Code(s): L03.116 - Cellulitis of left lower limb; L03.115 - Cellulitis of right lower limb (5) Carbapenem-resistant Enterobacteriaceae infection Current visit: No Status: Acute Category: Medical Code(s): A49.8 - Other bacterial infections of unspecified site; Z16.24 - Resistance to multiple antibiotics (6) Nail dystrophy Current visit: No Status: Acute Category: Medical Code(s): L60.3 - Nail dystrophy (7) Obesity Current visit: No Status: Acute Qualifiers: Obesity type: due to excess calories Obesity classification: adult class 3 (BMI >= 40) Serious obesity comorbidity presence: with serious comorbidity Body mass index: BMI 40.0-44.9 Qualified Code(s): E66.01 - Morbid (severe) obesity due to excess calories; Z68.41 - Body mass index (BMI) 40.0-44.9, adult Category: Medical Code(s): E66.9 - Obesity, unspecified (8) Serratia marcescens infection Current visit: No Status: Acute Category: Medical Code(s): A48.8 - Other specified bacterial diseases - Assessment and plan all Dx Assessment and Plan for all problems:: BASED ON PATIENT FACTORS AND VANCOMYCIN TROUGH LEVEL OF 23.9, WILL HOLD THIS MORNINGS DOSE AND CHANGE DOSE TO 2,250MG EVERY 12 HOURS STARTING AT 2000 THIS EVENING. PHARMACY WILL CONTINUE TO MONITOR AND ADJUST DOSE APPROPRIATE. -SILVA BOWLES, EDILIAD
--- NOTE | 2020-03-26 15:14 | HMH.OTEV ---
OT Inpatient Evaluation Rehab OT IP Evaluation Start: 03/26/20 14:19 Freq: ONCE Status: Complete Protocol: Document 03/26/20 15:04 CHELOJORGE (Rec: 03/26/20 15:13 CHELOJORGE [id number]) Rehab OT IP Assessment Subjective History 44 year old male referred to OT IP rehab after being admitted to [facility] on 03/24/20 for nonhealing R foot and increase pain levels. Patient has been recently been d/c from [place] in [facility] with podiatry and performered an I&D to R foot on 03/20/20. Patient did not follow up with services resulting in increase pain and nonhealing to R foot. Patient verbalize living with cousin and being independent with ADLs and functional mobility tasks. PMH : COPD, HTN, MRSA, R foot ulcer, onychogryphosis, B LE edema and B LE cellulitis. Subjective I was told to not put any weight on my right foot. It still hurts pretty bad. Objective Patient Orientation Person,Place,Time,Name,Age, Birthday,Day of Month,Day of Week,Month,Year,Time of Day, Patient Baseline,Situation Upper Extremity Gross ROM WNL Transfer Training Sit/Stand Transfer Assist Level Contact Guard/Hand Hold Chair Transfer Ability Contact Guard/Hand Hold Chair Transfer Technique Stand Step Pivot Chair Transfer Assistive Devices Rolling Walker Lower Body Dressing Ability Standby Assistance Rehab OT IP prob,goals,plan Problems Date of Evaluation: 03/26/20 OT IP Problems Transfers,Balance,Self care, Safety Rehab Potential Rehab Potential Good Equipment Needs Assistive Devices Rolling / Wheeled Walker Plan OT intervention Plan Transfers,Balance,Self care, Therapeutic Exercise OT Plan Frequency Daily Duration LOS Discharge Goals Bed Mobility Ability Standby Assistance Sit to Stand Chair Transfer Ability Supervision/Stand by Chair Transfer Ability Supervision/Stand by Chair Transfer Technique Stand Step Pivot Chair Transfer Assistive Devices Rolling Walker Lower Body Dressing Ability
[2020-03-26 15:59] LABS: Hematocrit 26.3 % (42.0-52.0)
--- NOTE | 2020-03-26 18:12 | PC.NURSE ---
Pt alert and oriented and able to make needs known. Dsgs to BLE are cdi and were changed this am per podiatry. Pt has been up to chair and using IS. CB in reach. NAD. have medicated per oct r/t R foot pain. VSS. Has ate well this shift. Also received 1 unit of blood this shift and tolerated well.
--- NOTE | 2020-03-27 03:53 | PC.NURSE ---
Addendum entered by Kira Portillo RN 03/27/20 03:57: Non-pitting edema continues in all extremities. Adequate UOP, though urine is dark yellow. Bowel sounds remain hypoactive, pt denies abdominal discomfort. Denies pain/soa. Original Note: Pt continues to require pain medications, though not as often as last night. Pt sat up in chair until 2300. Continues to have healthy appetite requiring frequent snacks. Dressings remain CDI. VSS. Wheezing continues in all lobes. No changes in other systems.
[2020-03-27 04:00] VITALS: BP 116/60; PULSE 106; RESP 17; TEMP 36.7; O2SAT 98
[2020-03-27 04:44] VITALS: BMI 39.2
[2020-03-27 08:00] VITALS: BP 126/69; PULSE 70; RESP 17; TEMP 36.9; O2SAT 98
--- NOTE | 2020-03-27 10:01 | HMH.ORTHPN ---
Subjective Date: 03/27/20 Time: 08:30 Principal diagnosis: B/L LE wounds Interval history: Mr. Ragland was resting in bed upon entering the room, patient was just medicated earlier this morning and was finally getting some rest. I discussed with the patient that we was going to need to clean up the wounds and redress the sites. The patient became very anxious that it was going to be too painful. I explained that I would be very easy as much as possible. Patient denies N/V. Vss. Patient is s/p on 03/25/20, Right foot incision and drainage, Right foot deep multiple compartment wound debridement, Right foot percutaneous bone biospy, Right leg ulcer debridement, Left leg ulcer debridement x2, Nail debridement x10, Surgical clips removal. The patient did get his Picc line in place to his his Right upper arm he denies any problems with the antibiotics. The wounds were cleaned to the left and right anterior leg with betadine soaked 4x4's then I used a sterile curette to lightly debrided the fibrotic slough from the top and borders of the wounds. Cleaned again and dressed with xeroform, betadine soaked 4x4's and dry 4x4's, kerlix and giovanni wrap. Patient yelped out in pain just from touching the wounds. The right foot was cleaned with a saline flush and drained off on a chux, and the borders cleaned with betadine. The patient was screaming in pain just from that much interaction with the wound. I then proceeded to dress the site with xeroform, betadine soaked 4x4's, dry 4x4's, kerlix and giovanni wrap. Patient was in alot of pain after the dressing change, I will check with his nurse to medicate him now with something for pain. PN: Obj Ex Vital signs: Temp Pulse Resp BP Pulse Ox 98.4 F 70 17 126/69 98 03/27/20 08:00 03/27/20 08:00 03/27/20 08:00 03/27/20 08:00 03/27/20 08:00 - Constitutional no acute distress, cooperative - Routine HEENT Exam Head: Present: normocephalic Eye: Present: PERRL ENT: Present: mucous membranes moist - Routine Neck Exam Present: supple, full ROM, trachea midline - Routine Chest/Breast/Axilla Exam Chest wall: Absent: tenderness - Routine Respiratory Exam Absent: accessory muscle use, respiratory distress - Routine Cardiovascular Exam Present: RRR - Routine Abdominal Exam Present: soft, obese - Routine Extremities Exam Present: pulses intact, normal capillary refill. Absent: calf tenderness - Detailed Lower Extremity Exam Comments: Right foot dorsal wound: The wound was cleaned this morning using a sterile sailne flush over the site then and pat dry with dry strerile 4x4 gauze, the borders of the wound was cleaned with betadine, then dressed with xeroform, betadine soaked 4x4 gauze, dry 4x4, kerlix, giovanni wrap measurements: 6.8 x 7.8 x 3.4cm, full thickness right dorsal foot wound, with exposed extensor tendons. Post debridement: wound base 80% granular, 20% fibrotic tissue, exposed extensor tendons. The right leg has several small areas that were debrided this morning using a curette and then cleaned again with betadine and then dressed with Xeroform, betadine soaked 4x4 gauze, dry 4x4, kerlix, giovanni wrap. The sites still had some erythema and slight maceration noted to the borders of the wounds but no active drainage. Left leg wounds were cleaned today with betadine and a curette was used to debride the area. There are 2 wounds noted to the anterior valero. No active purulent drainage or bleeding noted. Wound base is 100% granular. The left anterior medial ulcer measured 3.1 x 2.5 x 0.1cm. The left anterior lateral ulcer measured 2.1 x 2.5 x 0.1 cm. No purulence, malodor or drainage noted. Xeroform, betadine soaked 4x4 gauze, dry 4x4, kerlix, giovanni wrap applied to the left lower extremity. - Routine Back/Spine/Pelvis Exam Back/Spine: Present: full ROM - Routine Skin Exam Present: erythema, wounds - Routine Neurological Exam Present: oriented X3, normal tone. Absent: sensory deficit - Routine Psy
[2020-03-27 16:00] VITALS: BP 149/56; PULSE 65; RESP 18; TEMP 36.7; O2SAT 99
--- NOTE | 2020-03-27 16:55 | HMH.ACPN2 ---
Internal Medicine - PN: Subj *Date: 03/27/20 *Time: 08:00 Interval history: Pt states he is doing well. waiting for rehab/wound care bed Exam Vital signs and Labs for Last 24 Hours: Temp Pulse Resp BP Pulse Ox 98.4 F 70 17 126/69 98 03/27/20 08:00 03/27/20 08:00 03/27/20 08:00 03/27/20 08:00 03/27/20 08:00 I & O for Last 24 hours: Intake & Output 03/25/20 03/26/20 03/27/20 03/28/20 11:59 11:59 11:59 11:59 Intake Total 500 / 500 1770 / 1770 1705 / 1705 Output Total 650 / 650 415 / 415 1075 / 1075 1370 / 1370 Balance -150 / -150 1355 / 1355 630 / 630 -1370 / -1370 Weight 254 lb 1 oz 265 lb 5 oz 265 lb Microbiology Reports for the Last 24 Hours: Microbiology 03/25/20 04:15 Rectum CRE Surveillance Culture - Final Negative 03/25/20 12:00 Foot,Right - Wound Gram Stain - Final 03/25/20 12:00 Foot,Right - Wound Surgical Biopsy Culture - Preliminary Gram Negative Rods 03/25/20 12:00 Foot,Right - Wound Gram Stain - Final 03/25/20 12:00 Foot,Right - Wound Surgical Biopsy Culture - Preliminary Gram Negative Rods 03/24/20 18:55 Blood Blood Culture - Preliminary NO GROWTH AFTER 48 HOURS 03/24/20 18:55 Blood Blood Culture - Preliminary NO GROWTH AFTER 48 HOURS - Constitutional no acute distress - *Routine HEENT Exam Head: Present: normocephalic Eye: Present: PERRL ENT: Present: mucous membranes moist - *Routine Neck Exam Present: supple. Absent: lymphadenopathy - *Routine Respiratory Exam Present: wheezes - *Routine Cardiovascular Exam Present: RRR - *Routine Abdominal Exam Present: soft, normoactive bowel sounds. Absent: tenderness - *Routine Extremities Exam Present: normal capillary refill. Absent: cyanosis, clubbing, edema - *Routine Skin Exam Present: warm, wounds. Absent: rash Comments: dressing to parag feet scabbed areas to lower legs - *Routine Neurological Exam Present: alert, oriented X3 - Routine Psychiatric Exam Present: normal affect Assessment and Plan (1) Right foot ulcer Current visit: No Status: Acute Qualifiers: Non-pressure ulcer stage: with necrosis of muscle Qualified Code(s): L97.513 - Non-pressure chronic ulcer of other part of right foot with necrosis of muscle Category: Medical Code(s): L97.519 - Non-pressure chronic ulcer of other part of right foot with unspecified severity (2) Onychogryphosis Current visit: Yes Status: Acute Category: Medical Code(s): L60.2 - Onychogryphosis (3) Bilateral lower extremity edema Current visit: Yes Status: Acute Category: Medical Code(s): R60.0 - Localized edema (4) Bilateral lower leg cellulitis Current visit: Yes Status: Acute Category: Medical Code(s): L03.116 - Cellulitis of left lower limb; L03.115 - Cellulitis of right lower limb (5) Carbapenem-resistant Enterobacteriaceae infection Current visit: No Status: Acute Category: Medical Code(s): A49.8 - Other bacterial infections of unspecified site; Z16.24 - Resistance to multiple antibiotics (6) Nail dystrophy Current visit: No Status: Acute Category: Medical Code(s): L60.3 - Nail dystrophy (7) Obesity Current visit: No Status: Acute Qualifiers: Obesity type: due to excess calories Obesity classification: adult class 3 (BMI >= 40) Serious obesity comorbidity presence: with serious comorbidity Body mass index: BMI 40.0-44.9 Qualified Code(s): E66.01 - Morbid (severe) obesity due to excess calories; Z68.41 - Body mass index (BMI) 40.0-44.9, adult Category: Medical Code(s): E66.9 - Obesity, unspecified (8) Serratia marcescens infection Current visit: No Status: Acute Category: Medical Code(s): A48.8 - Other specified bacterial diseases - Assessment and plan all Dx Assessment and Plan for all
[2020-03-27 20:00] VITALS: BP 110/76; PULSE 70; RESP 16; TEMP 36.9; O2SAT 99
--- NOTE | 2020-03-27 20:31 | PC.NURSE ---
THIS RN RECEIVED A PHONE CALL FROM CARE MANAGEMENT TO PLACE A WOUND VAC ON PATIENT. WOUND VAC PLACED, PATIENT DID NOT TOLERATE WELL. PATIENT SCREAMED IN PAIN DURING PROCEDURE. THIS RN ADMINISTERED DILAUDID AND DIAZEPAM BEFORE PLACEMENT OF WOUND VAC. PATIENT CONTINUED TO BE VERY AGITATED DUE TO HIS PAIN. OXYCODONE WAS ADMINISTERED. PATIENT IS A&O X4, LUNGS: WHEEZING HEARD, PULSES EQUAL. EDEMA NOTED ON BLE, +2 PITTING. THIS RN AND AMRIT ADAMES RN USING STERILE TECHNIQUE CHANGED PATIENT'S PICC LINE DRESSING. PATIENT TOLERATED WELL.
--- NOTE | 2020-03-27 22:10 | PC.NURSE ---
ATTEMPTED TO CALL DR. JOINER AT THIS TIME DUE TO PT'S WOUND VAC HAVING NO OUTPUT SINCE APPLICATION AT SHIFT CHANGE THIS EVENING. DAY SHIFT APPLIED WOUND VAC BUT REPORTED HAVING A DIFFICULT TIME APPLYING IT DUE TO THE REGION OF THE FOOT IT WAS PLACED. REPORTED THEY COULD NOT GET A GOOD SEAL WITHOUT WRAPPING THE DIGITS TO THE RIGHT FOOT WELL. WILL CONTINUE TO MONITOR. HAVE NOT RECEIVED A CALL BACK FROM MD AT THIS TIME THUS FAR.
[2020-03-27 23:52] VITALS: BP 116/67; PULSE 71; RESP 18; TEMP 36.6; O2SAT 99
[2020-03-28] VITALS (8 sets, daily range): BP systolic 113–137; BP diastolic 50–77; PULSE 63–89; RESP 14–19; TEMP 36.5–36.9; O2SAT 96–99; BMI 40.1
--- NOTE | 2020-03-28 06:13 | PC.NURSE ---
A&O X4. PT AWAKE MOST OF SHIFT PLAYING GAMES AND LISTENING TO MUSIC ON HIS CELL PHONE WHILE SITTING UP IN BED. PT CONTINUES TO REPORT SEVERE PAIN INTERMITTENTLY T/O SHIFT. THIS AM HE STATED THE PERCOCET ADEQUATELY RELIVED HIS PAIN, UPON REASSESSMENT STATES PAIN IS NOW A 1/10 ON PAIN SCALE. TOLERATED RA WELL WITH NO C/O SOA. BILATERAL LUNGS NOTED WITH WHEEZES AND LEFT LOBE WITH RHONCHI WELL UPON AUSCULTATION. ENCOURAGED USE OF INCENTIVE SPIROMETER THIS SHIFT Q1H WHILE AWAKE. PT DEMONSTRATED APPROPRIATE USE AT BEGINNING OF SHIFT. +2 PITTING EDEMA NOTED TO BLE. WOUND VAC IN PLACE TO RIGHT FOOT. SUCTION WORKING ADEQUATELY, NO DRAINAGE THUS FAR THIS SHIFT. PT ABLE TO MOVE DIGITS ON RIGHT FOOT. VSS. REMAINS SAFE. CALL LIGHT WITHIN REACH. WILL CONTINUE TO MONITOR. REMAINS IN CONTACT PRECAUTIONS.
--- NOTE | 2020-03-28 06:34 | PC.NURSE ---
NOTIFIED MD MEDICAL TECHNOLOGIST CHEMISTRY, ROXANA, AT THIS TIME FOR LAB NOTIFICATION RESULTS CRE E-COLI OF PT'S RIGHT FOOT WOUND CULTURE FROM SX. PT IS CURRENTLY ON LEVAQUIN AND VANCOMYCIN FOR ATB COVERAGE. LEVAQUIN IS RESISTANT. NO NEW ORDERS PER MD AT THIS TIME.
[2020-03-28 08:03] LABS: Basophils % 0.6 % (0.1-2.0); Eosinophils # 0.4 K/mm3 (0.0-0.4); Eosinophils % 8.6 % (0.1-12.0); Hematocrit 29.1 % (42.0-52.0); Hemoglobin 9.4 g/dL (14.1-18.0); Lymphocytes # 1.2 K/mm3 (0.7-4.5); Lymphocytes % 26.2 % (10-50); Mean Corpuscular HGB Conc 32.3 g/dL (31.8-35.4); Mean Corpuscular Hemoglobin 32.6 pg (27.0-31.2); Mean Corpuscular Volume 100.9 fl (80-94); Mean Platelet Volume 8.3 fl (7.4-10.4); Monocytes # 0.3 K/mm3 (0.1-1.0); Monocytes % 6.6 % (1.7-9.3); Neutrophils # 2.7 K/mm3 (1.8-7.8); Platelet Count 130 K/mm3 (142-424); Red Blood Count 2.88 M/mm3 (4.60-6.20); Red Cell Distribution Width 16.2 % (11.5-17.5); White Blood Count 4.7 K/mm3 (4.8-10.8)
[2020-03-28 08:06] LABS: Chloride 106 mmol/L (98-107); Potassium 3.7 mmoL/L (3.5-5.1); Sodium 137 mmol/L (136-145)
--- NOTE | 2020-03-28 08:07 | HMH.ACPN2 ---
Internal Medicine - PN: Subj *Date: 03/28/20 *Time: 08:07 Interval history: doing better but c/o of increased foot pain Exam Vital signs and Labs for Last 24 Hours: Temp Pulse Resp BP Pulse Ox 98.0 F 68 19 113/62 97 03/28/20 07:43 03/28/20 07:43 03/28/20 07:43 03/28/20 07:43 03/28/20 07:43 Laboratory Results - last 24 hr 03/28/20 07:40: WBC 4.7 L, RBC 2.88 L, Hgb 9.4 L, Hct 29.1 L, MCV 100.9 H, MCH 32.6 H, MCHC 32.3, RDW 16.2, Plt Count 130 L D, MPV 8.3, Neut % (Auto) 58.0, Lymph % (Auto) 26.2, [place] % (Auto) 6.6, Eos % (Auto) 8.6, Baso % (Auto) 0.6, Neut # (Auto) 2.7, Lymph # (Auto) 1.2, [place] # (Auto) 0.3, Eos # (Auto) 0.4, Baso # (Auto) 0.0 03/28/20 07:40: Sodium 137, Potassium 3.7, Chloride 106 I & O for Last 24 hours: Intake & Output 03/25/20 03/26/20 03/27/20 03/28/20 11:59 11:59 11:59 11:59 Intake Total 500 / 500 1770 / 1770 1705 / 1705 1370 / 1370 Output Total 650 / 650 415 / 415 1075 / 1075 3170 / 3170 Balance -150 / -150 1355 / 1355 630 / 630 -1800 / -1800 Weight 254 lb 1 oz 265 lb 5 oz 265 lb 271 lb 2 oz Microbiology Reports for the Last 24 Hours: Microbiology 03/25/20 12:00 Foot,Right - Wound Gram Stain - Final 03/25/20 12:00 Foot,Right - Wound Surgical Biopsy Culture - Final Escherichia coli 03/25/20 12:00 Foot,Right - Wound Gram Stain - Final 03/25/20 12:00 Foot,Right - Wound Surgical Biopsy Culture - Final Escherichia coli 03/25/20 04:15 Rectum CRE Surveillance Culture - Final Negative - Constitutional no acute distress, obese - *Routine HEENT Exam Head: Present: normocephalic Eye: Present: EOMI, PERRL ENT: Present: mucous membranes dry - *Routine Neck Exam Present: supple - *Routine Respiratory Exam Absent: respiratory distress - *Routine Cardiovascular Exam Present: RRR - *Routine Abdominal Exam Present: soft - *Routine Extremities Exam Absent: calf tenderness - *Routine Skin Exam Present: intact - *Routine Neurological Exam Present: alert, CN II-XII intact - Routine Psychiatric Exam Present: normal affect Assessment and Plan (1) Right foot ulcer Current visit: No Status: Acute Qualifiers: Non-pressure ulcer stage: with necrosis of muscle Qualified Code(s): L97.513 - Non-pressure chronic ulcer of other part of right foot with necrosis of muscle Category: Medical Code(s): L97.519 - Non-pressure chronic ulcer of other part of right foot with unspecified severity (2) Onychogryphosis Current visit: Yes Status: Acute Category: Medical Code(s): L60.2 - Onychogryphosis (3) Bilateral lower extremity edema Current visit: Yes Status: Acute Category: Medical Code(s): R60.0 - Localized edema (4) Bilateral lower leg cellulitis Current visit: Yes Status: Acute Category: Medical Code(s): L03.116 - Cellulitis of left lower limb; L03.115 - Cellulitis of right lower limb (5) Carbapenem-resistant Enterobacteriaceae infection Current visit: No Status: Acute Category: Medical Code(s): A49.8 - Other bacterial infections of unspecified site; Z16.24 - Resistance to multiple antibiotics (6) Nail dystrophy Current visit: No Status: Acute Category: Medical Code(s): L60.3 - Nail dystrophy (7) Obesity Current visit: No Status: Acute Qualifiers: Obesity type: due to excess calories Obesity classification: adult class 3 (BMI >= 40) Serious obesity comorbidity presence: with serious comorbidity Body mass index: BMI 40.0-44.9 Qualified Code(s): E66.01 - Morbid (severe) obesity due to excess calories; Z68.41 - Body mass index (BMI) 40.0-44.9, adult Category: Medical Code(s): E66.9 - Obesity, unspecified (8) Serratia marcescens infection Current visit: No Status: Acute Category: Medical Code(s): A48.8 - Other specified bacterial diseases (9) SIRS (systemic inflammatory res
[2020-03-28 08:09] LABS: Blood Urea Nitrogen 15 mg/dl (9-20); Creatinine Clearance Estimated 128 mL/min (50-200); Estimated Glomerular Filt Rate 121 ml/min (>60); GFR (African American) 147 ML/MIN (>60)
[2020-03-28 08:10] LABS: Anion Gap 4.7 mEq/L (5-15); Calcium 8.3 mg/dl (8.4-10.2); Carbon Dioxide 30 mmol/L (22.0-30.0); Glucose 126 mg/dl (74-100)
[2020-03-28 08:42] LABS: Vancomycin,Trough 24.8 ug/mL (5.0-10.0)
--- NOTE | 2020-03-28 10:16 | HMH.PHACONS ---
- Pharmacy Consult Date: 03/28/20 Time: 10:16 Referring provider: DR. ROPER Reason for Consult:: VANCOMYCIN TROUGH LEVEL AND ANTIBIOTIC CHANGES Allergies and ADEs:: Allergies Allergy/AdvReac Type Severity Reaction Status Date / Time codeine Allergy Hives Verified 03/24/20 18:48 guaifenesin [From Mucinex] Allergy SWELLS Verified 03/24/20 18:48 ketorolac [From Toradol] Allergy Migraine Verified 03/24/20 18:48 Home Medications:: Home Medications Medication Instructions Recorded Confirmed Type Lisinopril/Hydrochlorothiazide 1 tab PO DAILY 03/04/20 03/25/20 History [Zestoretic 10/12.5mg tablet] Metoprolol Succinate [Metoprolol 50 mg PO DAILY 03/13/20 03/25/20 History Succinate 50mg Tablet*] Oxycodone HCl 15 mg PO Q4HP PRN 03/25/20 03/25/20 History cephALEXin [cephALEXin 500mg 500 mg PO QID 03/25/20 03/25/20 History capsule*] Height: 1.75 m Weight: 122.98 kg Laboratory Results:: Laboratory Results - last 24 hr 03/28/20 07:40: WBC 4.7 L, RBC 2.88 L, Hgb 9.4 L, Hct 29.1 L, MCV 100.9 H, MCH 32.6 H, MCHC 32.3, RDW 16.2, Plt Count 130 L D, MPV 8.3, Neut % (Auto) 58.0, Lymph % (Auto) 26.2, [place] % (Auto) 6.6, Eos % (Auto) 8.6, Baso % (Auto) 0.6, Neut # (Auto) 2.7, Lymph # (Auto) 1.2, [place] # (Auto) 0.3, Eos # (Auto) 0.4, Baso # (Auto) 0.0 03/28/20 07:40: Sodium 137, Potassium 3.7, Chloride 106, Carbon Dioxide 30, Anion Gap 4.7 L, BUN 15, Creatinine 0.70, Estimated Creat Clear 128, Estimated GFR 121, Est GFR ( Amer) 147, Glucose 126 H, Calcium 8.3 L 03/28/20 07:40: Vancomycin Trough 24.8 H Medical History: Reports:: Chronic Obstructive Pulmonary Disease (COPD), Hypertension, MRSA Denies:: Cancer, Diabetes Mellitus Type 1, Diabetes Mellitus Type 2, Seizures Assessment and Plan (1) Right foot ulcer Current visit: No Status: Acute Qualifiers: Non-pressure ulcer stage: with necrosis of muscle Qualified Code(s): L97.513 - Non-pressure chronic ulcer of other part of right foot with necrosis of muscle Category: Medical Code(s): L97.519 - Non-pressure chronic ulcer of other part of right foot with unspecified severity (2) Onychogryphosis Current visit: Yes Status: Acute Category: Medical Code(s): L60.2 - Onychogryphosis (3) Bilateral lower extremity edema Current visit: Yes Status: Acute Category: Medical Code(s): R60.0 - Localized edema (4) Bilateral lower leg cellulitis Current visit: Yes Status: Acute Category: Medical Code(s): L03.116 - Cellulitis of left lower limb; L03.115 - Cellulitis of right lower limb (5) Carbapenem-resistant Enterobacteriaceae infection Current visit: No Status: Acute Category: Medical Code(s): A49.8 - Other bacterial infections of unspecified site; Z16.24 - Resistance to multiple antibiotics (6) Nail dystrophy Current visit: No Status: Acute Category: Medical Code(s): L60.3 - Nail dystrophy (7) Obesity Current visit: No Status: Acute Qualifiers: Obesity type: due to excess calories Obesity classification: adult class 3 (BMI >= 40) Serious obesity comorbidity presence: with serious comorbidity Body mass index: BMI 40.0-44.9 Qualified Code(s): E66.01 - Morbid (severe) obesity due to excess calories; Z68.41 - Body mass index (BMI) 40.0-44.9, adult Category: Medical Code(s): E66.9 - Obesity, unspecified (8) Serratia marcescens infection Current visit: No Status: Acute Category: Medical Code(s): A48.8 - Other specified bacterial diseases (9) SIRS (systemic inflammatory response syndrome) Current visit: No Status: Acute Category: Medical Code(s): R65.10 - Systemic inflammatory response syndrome (SIRS) of non-infectious origin without acute organ dysfunction (10) Elevated erythrocyte sedimentation rate Current visit: No Status: Acute Category: Medical Code(s): R70.0 - Elevated erythrocyte sedimentation rate (11) Thrombocythemia Current visit: Yes Status: Acute Category:
--- NOTE | 2020-03-28 11:31 | PC.NURSE ---
PATIENT COMPLAINS OF CONSTANT BURNING AND CRUSHING PAIN IN RIGHT FOOT. THIS RN LEFT MESSAGE ON DR. JOINER'S CELL PHONE. NO OTHER CONCERNS AT THIS TIME.
--- NOTE | 2020-03-28 18:45 | PC.NURSE ---
PATIENT A&O X4, LUNGS: WHEEZING, PULSES EQUAL. BLE +1 PITTING EDEMA NOTED. PATIENT COMPLAINED OF PAIN THROUGHOUT THIS RN SHIFT. PATIENT CRIED AND STATED TO GET THIS THING OFF MY FOOT, IT IS CRUSHING MY BONES. THIS RN PHONED DR. JOINER. ORDERS RECEIVED TO APPLY ICE PACK TO UNDER FOOT. THIS RN EDUCATED PATIENT THAT IF HE WAS TO REFUSE THE WOUND VAC, THAT HE WOULD GO BACK TO DAILY [employer] DRESSINGS AND POSSIBLY LOOSE HIS FOOT. PATIENT STATED THAT HE DOES NOT WANT THE WOUND VAC OFF. THIS RN ASSESSED WOUND VAC, SCANT AMOUNT OF SEROUS DRAINAGE NOTED. NO LEAKS NOTED. NO OTHER CONCERNS AT THIS TIME.
--- NOTE | 2020-03-28 20:00 | PC.NURSE ---
PT REFUSED TEMP TO BE TAKEN. NURSE AWARE
--- NOTE | 2020-03-28 23:32 | PC.NURSE ---
gave pt 2 bowls of cereal, 2 orange sherbets, and a milk
--- NOTE | 2020-03-29 02:12 | PC.NURSE ---
Addendum entered by Threese Conklin RN 03/29/20 02:34: PT HAS REMAINED IN CONTACT PRECAUTIONS THROUGHOUT SHIFT. PT REFUSED ORAL TEMPERATURE AT BEGINNING OF SHIFT AND HAS BEEN FRUSTRATED WITH STAFF. HE APOLOGIZED AND HAS LET STAFF TAKE TEMPERATURE SINCE THEN. +2 PULSES NOTED THROUGHOUT. Original Note: A&OX4. PT HAS TOLERATED ROOM AIR WELL THROUGHOUT SHIFT. RESPIRATIONS REGULAR AND UNLABORED. LUNG SOUNDS DIMINISHED THROUGHOUT. NO COUGH NOTED. ENCOURAGED PT TO USE INCENTIVE SPIROMETER 10 TIMES EVERY HOUR WHILE AWAKE. ACTIVE BOWEL SOUNDS HEARD IN ALL 4 QUADRANTS. SOFT AND NONTENDER ABDOMEN. NO BM REPORTED. WOUND VAC IN PLACE TO R FOOT. SCANT DRAINAGE NOTED. DRESSING NOTED TO BLE. CDI. PICC IN PLACE TO R UPPER ARM. DRESSING CDI. PT VOIDS PER URINAL. BRIGHT YELLOW CLEAR URINE NOTED. PT HAS SLEPT ON AND OFF THROUGHOUT SHIFT. PT HAS REPORTED PAIN 10/10 SEVERAL TIMES THROUGHOUT SHIFT. HE HAS HAD PERCOCET AND DILAUDID NEEDED PER MAR. ON REASSESSMENT, HE WAS ADMINISTERED MORE PAIN MEDICATION OR WAS RESTING W EYES CLOSED. HAND DIRECTOR COMMUNITY ORGANIZATION EQUAL. PT HAS HAD SEVERAL THINGS TO EAT AND DRINK TONIGHT. PT HAS REMAINED AFEBRILE. PT MOVES INDEPENDENTLY IN BED. PT IS CURRENTLY LYING IN BED AT THIS TIME WITH CALL LIGHT WITHIN REACH. BED IN LOWEST POSITION. VSS. NO CONCERNS AT THIS TIME. WILL CONTINUE TO MONITOR.
[2020-03-29 04:00] VITALS: BP 114/56; PULSE 72; RESP 16; TEMP 36.8; O2SAT 97
[2020-03-29 05:00] VITALS: BMI 40.2
--- NOTE | 2020-03-29 07:18 | HMH.ACPN2 ---
Internal Medicine - PN: Subj *Date: 03/29/20 *Time: 07:18 Interval history: doing ok- resting Exam Vital signs and Labs for Last 24 Hours: Temp Pulse Resp BP Pulse Ox 98.3 F 72 16 114/56 L 97 03/29/20 04:00 03/29/20 04:00 03/29/20 04:00 03/29/20 04:00 03/29/20 04:00 Laboratory Results - last 24 hr 03/28/20 07:40: WBC 4.7 L, RBC 2.88 L, Hgb 9.4 L, Hct 29.1 L, MCV 100.9 H, MCH 32.6 H, MCHC 32.3, RDW 16.2, Plt Count 130 L D, MPV 8.3, Neut % (Auto) 58.0, Lymph % (Auto) 26.2, [place] % (Auto) 6.6, Eos % (Auto) 8.6, Baso % (Auto) 0.6, Neut # (Auto) 2.7, Lymph # (Auto) 1.2, [place] # (Auto) 0.3, Eos # (Auto) 0.4, Baso # (Auto) 0.0 03/28/20 07:40: Sodium 137, Potassium 3.7, Chloride 106, Carbon Dioxide 30, Anion Gap 4.7 L, BUN 15, Creatinine 0.70, Estimated Creat Clear 128, Estimated GFR 121, Est GFR ( Amer) 147, Glucose 126 H, Calcium 8.3 L 03/28/20 07:40: Vancomycin Trough 24.8 H I & O for Last 24 hours: Intake & Output 03/26/20 03/27/20 03/28/20 03/29/20 11:59 11:59 11:59 11:59 Intake Total 1770 / 1770 1705 / 1705 1370 / 1370 1621 / 1621 Output Total 415 / 415 1075 / 1075 3410 / 3410 1226 / 1226 Balance 1355 / 1355 630 / 630 -2040 / -2040 395 / 395 Weight 265 lb 5 oz 265 lb 271 lb 2 oz 271 lb 9.752 oz Microbiology Reports for the Last 24 Hours: Microbiology 03/25/20 12:00 Foot,Right - Wound Gram Stain - Final 03/25/20 12:00 Foot,Right - Wound Surgical Biopsy Culture - Final Escherichia coli 03/25/20 12:00 Foot,Right - Wound Gram Stain - Final 03/25/20 12:00 Foot,Right - Wound Surgical Biopsy Culture - Final Escherichia coli - Constitutional no acute distress, obese - *Routine HEENT Exam Head: Present: normocephalic Eye: Present: EOMI, PERRL ENT: Present: mucous membranes dry - *Routine Neck Exam Present: supple - *Routine Respiratory Exam Absent: respiratory distress - *Routine Cardiovascular Exam Present: RRR - *Routine Abdominal Exam Present: soft - *Routine Extremities Exam Comments: rt foot with dressing - *Routine Skin Exam Comments: healing changes rt foot - *Routine Neurological Exam Present: alert, CN II-XII intact - Routine Psychiatric Exam Present: normal affect Assessment and Plan (1) Right foot ulcer Current visit: No Status: Acute Qualifiers: Non-pressure ulcer stage: with necrosis of muscle Qualified Code(s): L97.513 - Non-pressure chronic ulcer of other part of right foot with necrosis of muscle Category: Medical Code(s): L97.519 - Non-pressure chronic ulcer of other part of right foot with unspecified severity (2) Onychogryphosis Current visit: Yes Status: Acute Category: Medical Code(s): L60.2 - Onychogryphosis (3) Bilateral lower extremity edema Current visit: Yes Status: Acute Category: Medical Code(s): R60.0 - Localized edema (4) Bilateral lower leg cellulitis Current visit: Yes Status: Acute Category: Medical Code(s): L03.116 - Cellulitis of left lower limb; L03.115 - Cellulitis of right lower limb (5) Carbapenem-resistant Enterobacteriaceae infection Current visit: No Status: Acute Category: Medical Code(s): A49.8 - Other bacterial infections of unspecified site; Z16.24 - Resistance to multiple antibiotics (6) Nail dystrophy Current visit: No Status: Acute Category: Medical Code(s): L60.3 - Nail dystrophy (7) Obesity Current visit: No Status: Acute Qualifiers: Obesity type: due to excess calories Obesity classification: adult class 3 (BMI >= 40) Serious obesity comorbidity presence: with serious comorbidity Body mass index: BMI 40.0-44.9 Qualified Code(s): E66.01 - Morbid (severe) obesity due to excess calories; Z68.41 - Body mass index (BMI) 40.0-44.9, adult Category: Medical Code(s): E66.9 - Obesity, unspecified (8) Serratia marcescens infection Current visit: No Sta
[2020-03-29 07:30] VITALS: BP 124/68; PULSE 65; RESP 19; TEMP 36.7; O2SAT 93
[2020-03-29 11:42] VITALS: BP 130/70; PULSE 70; RESP 19; TEMP 36.8; O2SAT 94
[2020-03-29 15:21] VITALS: BP 127/65; PULSE 75; RESP 17; TEMP 36.7; O2SAT 96
--- NOTE | 2020-03-29 17:18 | PC.NURSE ---
Pt has asked for Dilaudid Q3hrs for severe pain in RLE. Offered Percocet as he may be discharged tomorrow to [facility] but he refused po form. Wound vac to right foot with scant amount of drainage. Has eaten and drank well. UOP adequate. No BM. Bilateral lungs with expiratory wheezes, he reports that this is his baseline. Refuses to get OOB. Utilizes urinal. No other issues noted.
[2020-03-29 19:27] VITALS: BP 123/73; PULSE 78; RESP 14; TEMP 37.2; O2SAT 95
[2020-03-30] VITALS (8 sets, daily range): BP systolic 118–157; BP diastolic 75–90; PULSE 60–83; RESP 16–18; TEMP 36.4–37.1; O2SAT 92–97; BMI 41.1
--- NOTE | 2020-03-30 03:04 | PC.NURSE ---
A&OX4. PT TOLERATING RA WELL THIS SHIFT. PT HAS BEEN SITTING UP IN BED MAJORITY OF SHIFT, HASN'T SLEPT VERY MUCH. PT HAS C/O A BURNING PAIN IN THE TOP OF HIS R FOOT X2 THIS SHIFT TX WITH PRN DILAUDID. THIS NURSE ENCOURAGED USE OF PO PAIN MEDICATION, BUT PT REFUSES TO TRY. PT STATES THAT NOTHING COMPLETELY RELIEVES HIS PAIN. RLE ELEVATED ON PILLOWS, ICE APPLIED T/O SHIFT. WOUND VAC PRESENT. PT USING URINAL TO VOID. THIS NURSE ENCOURAGED PT TO DRINK WATER INSTEAD OF SODA THIS SHIFT. PT USING IS T/O SHIFT WHILE AWAKE. NO OTHER C/O THUS FAR, VSS WILL CONTINUE TO MONITOR.
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
--- NOTE | 2020-03-30 08:42 | HMH.ACPN2 ---
Internal Medicine - PN: Subj *Date: 03/30/20 *Time: 09:59 Interval history: pt doing well states he is having alot of pain with dressing changes Exam Vital signs and Labs for Last 24 Hours: Temp Pulse Resp BP Pulse Ox 98.2 F 80 18 142/77 H 95 03/30/20 08:00 03/30/20 08:00 03/30/20 08:00 03/30/20 08:00 03/30/20 08:00 I & O for Last 24 hours: Intake & Output 03/27/20 03/28/20 03/29/20 03/30/20 11:59 11:59 11:59 11:59 Intake Total 1705 / 1705 1370 / 1370 1980 Output Total 1075 / 1075 3410 / 3410 1226 / 1226 2049 / 2049 Balance 630 / 630 -2040 / -2040 755 / 755 -50 / -50 Weight 265 lb 271 lb 2 oz 271 lb 9.752 oz 278 lb Microbiology Reports for the Last 24 Hours: Microbiology 03/24/20 18:55 Blood Blood Culture - Final NO GROWTH AFTER 5 DAYS 03/24/20 18:55 Blood Blood Culture - Final NO GROWTH AFTER 5 DAYS - Constitutional no acute distress - *Routine HEENT Exam Head: Present: normocephalic Eye: Present: PERRL ENT: Present: mucous membranes moist - *Routine Neck Exam Present: supple. Absent: lymphadenopathy - *Routine Respiratory Exam Present: wheezes - *Routine Cardiovascular Exam Present: RRR - *Routine Abdominal Exam Present: soft, normoactive bowel sounds. Absent: tenderness - *Routine Extremities Exam Absent: cyanosis, clubbing, edema - *Routine Skin Exam Present: warm, wounds. Absent: rash Comments: dressing to parag feet - *Routine Neurological Exam Present: alert, oriented X3 - Routine Psychiatric Exam Present: normal affect Assessment and Plan (1) Right foot ulcer Current visit: No Status: Acute Qualifiers: Non-pressure ulcer stage: with necrosis of muscle Qualified Code(s): L97.513 - Non-pressure chronic ulcer of other part of right foot with necrosis of muscle Category: Medical Code(s): L97.519 - Non-pressure chronic ulcer of other part of right foot with unspecified severity (2) Onychogryphosis Current visit: Yes Status: Acute Category: Medical Code(s): L60.2 - Onychogryphosis (3) Bilateral lower extremity edema Current visit: Yes Status: Acute Category: Medical Code(s): R60.0 - Localized edema (4) Bilateral lower leg cellulitis Current visit: Yes Status: Acute Category: Medical Code(s): L03.116 - Cellulitis of left lower limb; L03.115 - Cellulitis of right lower limb (5) Carbapenem-resistant Enterobacteriaceae infection Current visit: No Status: Acute Category: Medical Code(s): A49.8 - Other bacterial infections of unspecified site; Z16.24 - Resistance to multiple antibiotics (6) Nail dystrophy Current visit: No Status: Acute Category: Medical Code(s): L60.3 - Nail dystrophy (7) Obesity Current visit: No Status: Acute Qualifiers: Obesity type: due to excess calories Obesity classification: adult class 3 (BMI >= 40) Serious obesity comorbidity presence: with serious comorbidity Body mass index: BMI 40.0-44.9 Qualified Code(s): E66.01 - Morbid (severe) obesity due to excess calories; Z68.41 - Body mass index (BMI) 40.0-44.9, adult Category: Medical Code(s): E66.9 - Obesity, unspecified (8) Serratia marcescens infection Current visit: No Status: Acute Category: Medical Code(s): A48.8 - Other specified bacterial diseases (9) SIRS (systemic inflammatory response syndrome) Current visit: No Status: Acute Category: Medical Code(s): R65.10 - Systemic inflammatory response syndrome (SIRS) of non-infectious origin without acute organ dysfunction (10) Elevated erythrocyte sedimentation rate Current visit: No Status: Acute Category: Medical Code(s): R70.0 - Elevated erythrocyte sedimentation rate (11) Thrombocythemia Current visit: Yes Status: Acute Category: Medical Code(s): D47.3 - Essential (hemorrhagic) thrombocythemia - Assessment and plan all
--- NOTE | 2020-03-30 16:59 | PC.NURSE ---
PATIENT A&O X4, LUNGS: WHEEZING HEARD, PULSES EQUAL. WHILE RN WAS IN ROOM FOR AN ASSESSMENT PATIENT WAS SCRATCHING HIS RIGHT LEG. THIS RN EDUCATED PATIENT THE IMPORTANCE OF NOT SCRATCHING AND TEARING THE SKIN. THIS RN EDUCATED ABOUT INFECTION PREVENTION. PATIENT VERBALIZED AN UNDERSTANDING BUT CONTINUED TO SCRATCH. DURING NEXT ASSESSMENT THIS RN NOTICED BLOOD ON PATIENT'S TOP SHEET. THIS RN INQUIRED ABOUT THE BLOOD, PATIENT STATED I GUESS FROM ME SCRATCHING AGAIN THIS RN ENCOURAGED PATIENT TO NOT SCRATCH. NO OTHER NEEDS OR CONCERNS AT THIS TIME.
[2020-03-31 03:45] VITALS: BP 135/74; PULSE 67; RESP 16; TEMP 36.8; O2SAT 96
[2020-03-31 03:58] VITALS: BMI 40.4
[2020-03-31 07:43] VITALS: BP 133/75; PULSE 75; RESP 19; TEMP 36.5; O2SAT 95
--- NOTE | 2020-03-31 08:43 | HMH.DCSUM ---
General - General Admission date:: 03/25/20 Discharge date: 03/31/20 HPI HPI: 44-year-old male patient presented to the emergency room with complaints of nonhealing right foot wound and increasing pain. Patient was transferred [facility] week due to services services unavailable here at [facility]. He was discharged last Monday after [facility] in [facility] podiatry had seen and performed an I&D of right foot. He was discharged last Monday due to miscommunication patient did not follow-up with home health care and with increasing pain went to ER for pain control. Requested from information from [facility] is limited and Very poor historian. Podiatry has seen this morning and has decided to take him to surgery for an I&D of right foot, from medical standpoint he is cleared for surgery normal echo within the last year, he denies any chest pain shortness of breath abdominal pain. Hospital Course Hospital Course: Patient resting quietly in bed, dressing intact to right lower extremity he is able to wiggle toes. Wound VAC is off at present, it will be applied once he is at rehab facility. He will be discharged to [facility] today, he is agreeable to this. Patient was recently discharged from [facility] in [facility] for worsening right foot pain. During his stay in the hospital there he had at least 2 surgeries and a wound debridement with application of clips for uncontrolled bleeding. Due to confusion during discharge patient had no home health care or wound care established after discharge. He presented to [facility] ER with worsening right foot pain and was taken to surgery on 03/24/20 for a wound debridement and wound VAC applied to area. During his stay patient's potassium has been replaced and increased from 2.6 to presently 3.7, H&H has been stable COVID-19 has been negative. Podiatry has seen daily, is satisfied with progress of wound, and is agreeable to discharge. Right foot wound culture positive for E. coli, CRE negative, and blood cultures x2 negative 03/24/[address]: IMPRESSION: 1. No evidence of osteomyelitis or septic joint. 2. Nonspecific soft tissue swelling which may represent cellulitis. 3. Soft tissue defect along the dorsal aspect of the foot at the 2nd and 3rd metatarsophalangeal joints. No obvious abscess. Abscess evaluation is limited without IV contrast. Dictated lisset Meredith, 03/25/20 R Foot XR: FINDINGS: Multiple surgical clips are present along the dorsal aspect of the foot along the proximal phalanx of the 2nd and 3rd digits. There is a prominent soft tissue defect at this area. No bony destructive process. No fracture or dislocation. IMPRESSION: Soft tissue defect along the dorsal aspect of the foot with multiple surgical clips with no acute bony anomaly. Dictated lisset Meredith 03/25/20 CXR: IMPRESSION: Right upper extremity PICC line tip is in the region of the left brachiocephalic the vein Dictated lisset Meredith Podiatry has seen and R Foot Surgery 03/25/20: Clinical Note:: Patient was admitted 03/24/2020 for worsening right foot pain via ER. Patient was seen and admitted last week has [facility], transferred from [facility] 03/12/2024 events wound care including infectious disease consult, inpatient wound care debridement and evaluation for hyperbaric oxygen treatment. He had at least 2 surgeries including wound debridement and then another debridement with application of clips for uncontrolled bleeding according to the operative note by Dr. Omer Sharma. Patient states he had no home health care arranged and did not want know what to do with the wound so came to the ER for worsening pain and IV antibiotic therapy. Patient did not have a PICC line placed. 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 Discussed conservative o
[2020-03-31 08:57] LABS: Basophils % 0.4 % (0.1-2.0); Eosinophils # 0.2 K/mm3 (0.0-0.4); Eosinophils % 9.9 % (0.1-12.0); Hemoglobin 8.3 g/dL (14.1-18.0); Lymphocytes # 0.6 K/mm3 (0.7-4.5); Lymphocytes % 30.9 % (10-50); Mean Corpuscular HGB Conc 33.2 g/dL (31.8-35.4); Mean Corpuscular Hemoglobin 32.1 pg (27.0-31.2); Mean Corpuscular Volume 96.6 fl (80-94); Monocytes # 0.1 K/mm3 (0.1-1.0); Monocytes % 8.1 % (1.7-9.3); Neutrophils # 0.9 K/mm3 (1.8-7.8); Neutrophils % 50.8 % (37.0-80.0); Platelet Count 65 K/mm3 (142-424); Red Blood Count 2.58 M/mm3 (4.60-6.20); White Blood Count 1.8 K/mm3 (4.8-10.8)
[2020-03-31 09:01] LABS: Chloride 104 mmol/L (98-107); Potassium 3.7 mmoL/L (3.5-5.1); Sodium 135 mmol/L (136-145)
[2020-03-31 09:04] LABS: Blood Urea Nitrogen 13 mg/dl (9-20); Creatinine Clearance Estimated 128 mL/min (50-200); Estimated Glomerular Filt Rate 121 ml/min (>60); GFR (African American) 147 ML/MIN (>60)
[2020-03-31 09:05] LABS: Anion Gap 3.7 mEq/L (5-15); Calcium 8.1 mg/dl (8.4-10.2); Carbon Dioxide 31 mmol/L (22.0-30.0); Glucose 161 mg/dl (74-100)
--- NOTE | 2020-03-31 09:31 | HMH.ACPN ---
Internal Medicine - PN: Subj *Date: 03/31/20 *Time: 09:31 Exam Vital signs and Labs for Last 24 Hours: Temp Pulse Resp BP Pulse Ox 97.7 F 75 19 133/75 95 03/31/20 07:43 03/31/20 07:43 03/31/20 07:43 03/31/20 07:43 03/31/20 07:43 Laboratory Results - last 24 hr 03/31/20 08:45: WBC 1.8 L*, RBC 2.58 L, Hgb 8.3 L, Hct 25.0 L, MCV 96.6 H, MCH 32.1 H, MCHC 33.2, RDW 15.0, Plt Count 65 L D, MPV 9.0, Neut % (Auto) 50.8, Lymph % (Auto) 30.9, [place] % (Auto) 8.1, Eos % (Auto) 9.9, Baso % (Auto) 0.4, Neut # (Auto) 0.9 L*, Lymph # (Auto) 0.6 L, [place] # (Auto) 0.1, Eos # (Auto) 0.2, Baso # (Auto) 0.0 03/31/20 08:45: Sodium 135 L, Potassium 3.7, Chloride 104, Carbon Dioxide 31 H, Anion Gap 3.7 L, BUN 13, Creatinine 0.70, Estimated Creat Clear 128, Estimated GFR 121, Est GFR ( Amer) 147, Glucose 161 H, Calcium 8.1 L I & O for Last 24 hours: Intake & Output 03/28/20 03/29/20 03/30/20 03/31/20 23:59 23:59 23:59 23:59 Intake Total 1891 / 1891 2019 / 2500 1643 / 2448 1210 / 1210 Output Total 1964 / 1964 2501 / 2501 1250 / 2125 2375 / 2375 Balance -74 / -74 -481 / -1 393 / 323 -1165 / -1165 Weight 122.98 kg 123.2 kg 126.099 kg 123.876 kg Assessment and Plan (1) Right foot ulcer Start date: 03/30/20 (E-Coli) Current visit: No Status: Acute Qualifiers: Non-pressure ulcer stage: with necrosis of muscle Qualified Code(s): L97.513 - Non-pressure chronic ulcer of other part of right foot with necrosis of muscle Category: Medical Code(s): L97.519 - Non-pressure chronic ulcer of other part of right foot with unspecified severity (2) Onychogryphosis Current visit: Yes Status: Acute Category: Medical Code(s): L60.2 - Onychogryphosis (3) Bilateral lower extremity edema Current visit: Yes Status: Acute Category: Medical Code(s): R60.0 - Localized edema (4) Bilateral lower leg cellulitis Current visit: Yes Status: Acute Category: Medical Code(s): L03.116 - Cellulitis of left lower limb; L03.115 - Cellulitis of right lower limb (5) Carbapenem-resistant Enterobacteriaceae infection Current visit: No Status: Acute Category: Medical Code(s): A49.8 - Other bacterial infections of unspecified site; Z16.24 - Resistance to multiple antibiotics (6) Nail dystrophy Current visit: No Status: Acute Category: Medical Code(s): L60.3 - Nail dystrophy (7) Obesity Current visit: No Status: Acute Qualifiers: Obesity type: due to excess calories Obesity classification: adult class 3 (BMI >= 40) Serious obesity comorbidity presence: with serious comorbidity Body mass index: BMI 40.0-44.9 Qualified Code(s): E66.01 - Morbid (severe) obesity due to excess calories; Z68.41 - Body mass index (BMI) 40.0-44.9, adult Category: Medical Code(s): E66.9 - Obesity, unspecified (8) Serratia marcescens infection Current visit: No Status: Acute Category: Medical Code(s): A48.8 - Other specified bacterial diseases (9) SIRS (systemic inflammatory response syndrome) Current visit: No Status: Acute Category: Medical Code(s): R65.10 - Systemic inflammatory response syndrome (SIRS) of non-infectious origin without acute organ dysfunction (10) Elevated erythrocyte sedimentation rate Current visit: No Status: Acute Category: Medical Code(s): R70.0 - Elevated erythrocyte sedimentation rate (11) Thrombocythemia Current visit: Yes Status: Acute Category: Medical Code(s): D47.3 - Essential (hemorrhagic) thrombocythemia The patient's infection will respond to the chosen ABx?: Yes Is the patient receiving the right drug, dose, and route?: Yes Could a more targeted ABx be ordered?: No (CULTURES SENSITIVE TO ZOSYN, WILL CONTINUE AT [facility])
--- NOTE | 2020-03-31 10:10 | PC.NURSE ---
REPORT CALLED TO MISS RN AT [facility].
== END 2020-03-31 10:55 | DRG 571 ==
LOC: ER 20:08 → 2ND 20:21
PROVIDERS: Nurse Practitioner Family; Podiatrist; Admitting Provider Emergency Medicine; Emergency Provider Family Medicine; PCP Emergency Medicine; Visit Provider Emergency Medicine
PROC: 0JBQ0ZZ Excision of Right Foot Subcutaneous Tissue and Fascia, Open Approach (ICD-10-PCS; principal; 2020-03-25 08:15)
DX: L97.513 Non-pressure chronic ulcer of other part of right foot with necrosis of muscle (principal); L03.116 Cellulitis of left lower limb; L03.115 Cellulitis of right lower limb; Z16.24 Resistance to multiple antibiotics; Z68.41 Body mass index [BMI] 40.0-44.9, adult; E66.01 Morbid (severe) obesity due to excess calories; Z79.899 Other long term (current) drug therapy; Z88.8 Allergy status to other drugs, medicaments and biological substances; B96.20 Unspecified Escherichia coli [E. coli] as the cause of diseases classified elsewhere; L97.821 Non-pressure chronic ulcer of other part of left lower leg limited to breakdown of skin
CPT/HCPCS: 11043; 11046; 36415; 36569; 71045; 73630; 73700; 80048; 80053; 80202; 83605; 85014; 85018; 85025; 85651; 86140; 86850; 87040; 87070; 87077; 87081; 87186; 87205; 87581; 87633; 87798; 88307; 88311; 93005; 94640; 96365; 96366; 96375; 96376; 97110; 97161; 97165; 97530; 97535; 99285; C1751; J1956; J2405; J2543; J3370; P9016

== ENCOUNTER → 2020-04-13 11:15 | Outpatient (CLI) | payer MEDICARE, MEDICAID, SELFPAY | PROVIDERS: Visit Provider Podiatrist | DX: Z51.89 Encounter for other specified aftercare (principal); L97.513 Non-pressure chronic ulcer of other part of right foot with necrosis of muscle | CPT/HCPCS: 87070; 87077; 87186; 87205 ==

== ENCOUNTER 2020-05-03 15:24 | Inpatient (IN) | payer MEDICARE, MEDICAID, SELFPAY ==
[2020-05-03] VITALS (10 sets, daily range): BP systolic 134–159; BP diastolic 70–85; PULSE 105–119; RESP 18–20; TEMP 38–39.3; O2SAT 97–100; BMI 36.9; BMI 38.8
--- NOTE | 2020-05-03 15:50 | HMH.EDGENADL ---
ED Disposition Clinical Impression: Cellulitis of left leg Venous stasis ulcers Qualifiers: Venous stasis ulcer site: other part of lower leg Varicose vein presence: without varicose veins Laterality: left Non-pressure ulcer stage: with fat layer exposed Qualified Code(s): I87.2 - Venous insufficiency (chronic) (peripheral); L97.822 - Non-pressure chronic ulcer of other part of left lower leg with fat layer exposed Sepsis Qualifiers: Sepsis type: sepsis due to unspecified organism Sepsis acute organ dysfunction status: without acute organ dysfunction Qualified Code(s): A41.9 - Sepsis, unspecified organism Disposition: Admitted as Observation Condition on Discharge: Fair Referrals: Louie Resendez MD [Primary Care Provider] - - Critical Care Critical Care Time: No Attestation: On 05/03/20, the high probability of a clinically significant, sudden or life threatening deterioration of the following system(s) required my full and direct attention, intervention and personal management. The time I documented below is in addition to time spent performing reported procedures but includes the following listed in this critical care notation. Medical Decision Making - Medical Records Medical records reviewed: Yes: I reviewed the patient's medical records. - Joshua Inquiry Pt receiving controlled substance: No Vital Signs: 05/03/20 15:25 Temperature 102.7 F H Temperature Source Oral Pulse Rate [Right] 116 H Respiratory Rate 19 Blood Pressure [Right Arm] 144/72 H Blood Pressure Mean [Right Arm] 96 02 Sat by Pulse Oximetry 100 - Lab Data Lab results reviewed: Yes: I reviewed the patient's lab results. Lab Results 05/03/20 15:50: WBC 7.0, RBC 3.03 L, Hgb 9.5 L, Hct 28.8 L, MCV 94.9 H, MCH 31.5 H, MCHC 33.2, RDW 15.9, Plt Count 87 L, MPV 8.7, Neut % (Auto) 85.0 H, Lymph % (Auto) 9.9 L, [place] % (Auto) 4.3, Eos % (Auto) 0.6, Baso % (Auto) 0.2, Neut # (Auto) 5.9, Lymph # (Auto) 0.7, [place] # (Auto) 0.3, Eos # (Auto) 0.0, Baso # (Auto) 0.0, Total Counted 100, Neutrophils % (Manual) 90 H, Lymphocytes % (Manual) 7 L, Monocytes % (Manual) 3, Platelet Estimate Moderate decrease, RBC Morphology Normal, ESR 80 H 05/03/20 15:50: Sodium 132 L, Potassium 3.8, Chloride 104, Carbon Dioxide 29, Anion Gap 2.8 L, BUN 9, Creatinine 0.60 L, Estimated Creat Clear 244, Estimated GFR 144, Est GFR ( Amer) 175, Glucose 140 H, Calcium 8.3 L, Total Bilirubin 2.0 H, AST 49, ALT 33, Alkaline Phosphatase 193 H, C-Reactive Protein 71.7 H, Total Protein 6.6, Albumin 2.7 L, Globulin 3.9 H, Albumin/Globulin Ratio 0.7 L 05/03/20 15:50: Lactate 2.3 H 05/03/20 15:50: SARS-CoV-2 IgG Ab (Rapid) Negative, SARS-CoV-2 IgM Ab (Rapid) Negative Result diagrams: 05/03/20 15:50 05/03/20 15:50 Orders (Tests/Meds): ED MEDICATIONS Generic Name Dose Route Start Last Admin Trade Name Freq PRN Reason Stop Dose Admin Sodium Chloride 1,000 mls @ 999 mls/hr 05/03/20 15:45 05/03/20 16:32 Sod Chlor 0.9% 1000ml Bag IV 05/03/20 16:45 999 mls/hr .Q1H1M CJ Administration Vancomycin HCl 2,250 mg/ 250 mls @ 125 mls/hr 05/03/20 16:30 05/03/20 16:29 Sodium Chloride IV 05/17/20 16:29 125 mls/hr Q24H CJ Administration Protocol Piperacillin Sod/Tazobactam 100 mls @ 200 mls/hr 05/03/20 16:45 Sod 4.5 gm/ Sodium Chloride IV 05/17/20 16:44 Q6H CJ Protocol Miscellaneous 1 each 05/03/20 16:15 05/03/20 16:15 Vancomycin Consult Request * 06/02/20 16:14 1 each CONSULT PHARMACY CJ Administration Discontinued Medications Generic Name Dose Route Start Last Admin Trade Name Freq PRN Reason Stop Dose Admin Acetaminophen 1,000 mg 05/03/20 15:41 05/03/20 16:30 Tylenol 500mg Tablet PO 05/03/20 15:42 1,000 mg ONCE ONE Administration ORDERS Category Date Time Status Blood Culture Stat Micro 05/03/20 15:50 Received Wound Culture and Gram Stain Stat Micro 05/03/20 16:00 Results - Physician Consults
[2020-05-03 16:11] LABS: Alanine Aminotransferase 33 U/L (12-78); Albumin Level 2.7 g/dl (3.5-5.0); Albumin/Globulin Ratio 0.7 (1.1-1.8); Alkaline Phosphatase 193 U/L (38-126); Anion Gap 2.8 mEq/L (5-15); Aspartate Amino Transferase 49 U/L (17-59); Blood Urea Nitrogen 9 mg/dl (9-20); Calcium 8.3 mg/dl (8.4-10.2); Carbon Dioxide 29 mmol/L (22.0-30.0); Chloride 104 mmol/L (98-107); Creatinine Clearance Estimated 244 mL/min (50-200); Estimated Glomerular Filt Rate 144 ml/min (>60); GFR (African American) 175 ML/MIN (>60); Globulin 3.9 g/dL (1.3-3.2); Glucose 140 mg/dl (74-100); Potassium 3.8 mmoL/L (3.5-5.1); Sodium 132 mmol/L (136-145); Total Protein,Serum 6.6 g/dl (6.3-8.2)
[2020-05-03 16:14] LABS: Basophils % 0.2 % (0.1-2.0); Eosinophils % 0.6 % (0.1-12.0); Hematocrit 28.8 % (42.0-52.0); Hemoglobin 9.5 g/dL (14.1-18.0); Lymphocytes # 0.7 K/mm3 (0.7-4.5); Lymphocytes % 9.9 % (10-50); Mean Corpuscular HGB Conc 33.2 g/dL (31.8-35.4); Mean Corpuscular Hemoglobin 31.5 pg (27.0-31.2); Mean Corpuscular Volume 94.9 fl (80-94); Mean Platelet Volume 8.7 fl (7.4-10.4); Monocytes # 0.3 K/mm3 (0.1-1.0); Monocytes % 4.3 % (1.7-9.3); Neutrophils # 5.9 K/mm3 (1.8-7.8); Platelet Count 87 K/mm3 (142-424); Red Blood Count 3.03 M/mm3 (4.60-6.20); Red Cell Distribution Width 15.9 % (11.5-17.5)
[2020-05-03 16:15] LABS: MANUAL DIFFERENTIAL MANUAL DIFFERENTIAL (MANUAL DIFF)
--- NOTE | 2020-05-03 16:15 | PC.NURSE ---
Spoke with star from pharmacy for vanc dosing, see mar
[2020-05-03 16:17] LABS: C-Reactive Protein 71.7 mg/L (0-4)
[2020-05-03 16:22] LABS: Lactic Acid 2.3 mmol/L (0.7-2.1)
[2020-05-03 16:35] LABS: Erythrocyte Sedimentation Rate 80 mm/hr (0-15)
[2020-05-03 16:37] LABS: Lymphocytes % 7 % (10-50); Monocytes % 3 % (2-9); Neutrophils % 90 % (42-76); Total Cells Counted 100
[2020-05-03 16:38] LABS: Platelet Estimate Moderate Decrease; RBC Morphology Normal
[2020-05-03 16:47] LABS: Coronavirus 19 IgG Antibody Negative (Negative); Coronavirus 19 IgM Antibody Negative (Negative)
--- NOTE | 2020-05-03 16:47 | PC.NURSE ---
Dr Pato Knott.
--- NOTE | 2020-05-03 18:36 | PC.NURSE ---
Report given to Evie
--- NOTE | 2020-05-03 18:56 | PC.NURSE ---
Pt arrived to the floor at this time
[2020-05-03 19:30] LABS: Reflex Lactic Add Lactic Reflex
[2020-05-03 20:15] LABS: Lactic Acid Follow Up (RFLX 1) 1.1 mmol/L (0.7-2.1)
[2020-05-04] VITALS (23 sets, daily range): BP systolic 120–158; BP diastolic 47–86; PULSE 70–101; RESP 16–20; TEMP 22.2–37.1; O2SAT 97–100
--- NOTE | 2020-05-04 05:10 | PC.NURSE ---
donor center technician pharmacist to verify vanc administration
--- NOTE | 2020-05-04 05:36 | PC.NURSE ---
shift summary, pt has rested well t/o shift, pt complained of pain at 2200 and was treated per OCT with acetaminophen, pt stated acetaminophen would not work, but did take the medication, no pain relief achieved, Dr. Whyte notified and orders received to restart home oxycodone, order faxed to restart Oxycodone 10 mg PO every 6 hours PRN, medication administered per OCT with good results, BLE dressings removed and pictures taken of wounds, pictures on chart, kerlex and telfa pads placed on wounds, legs elevated
--- NOTE | 2020-05-04 07:00 | P.CONPHA_ITS ---
[facility] Pharmacy VTE Monitoring - Patient Demographics Admission date: 05/03/20 Report Date: 05/04/20 Time: 07:00 Allergies/Adverse Reactions: Patient Allergies codeine Allergy (Severe, Verified 05/03/20 21:31) Anaphylaxis guaifenesin [From Mucinex] Allergy (Severe, Verified 05/03/20 21:31) SWELLS ketorolac [From Toradol] Allergy (Severe, Verified 05/03/20 21:31) Difficulty Swallowing Height: 1.75 m Weight: 119.408 kg Patient Problems: Current Active Problems Cellulitis of left leg (Acute) Venous stasis ulcers (Acute) Sepsis (Acute) - VTE Risk Labs: VTE Related Lab Results Hgb 9.5 g/dL (14.1-18.0) L 05/03/20 15:50 Hct 28.8 % (42.0-52.0) L 05/03/20 15:50 Plt Count 87 K/mm3 (142-424) L 05/03/20 15:50 BUN 9 mg/dl (9-20) 05/03/20 15:50 Creatinine 0.60 mg/dl (0.66-1.25) L 05/03/20 15:50 Estimated Creat Clear 244 mL/min (50-200) 05/03/20 15:50 VTE Score: 5 VTE Risk Level: Low Risk - Prophylaxis VTE Prophylaxis Ordered?: Yes Types of VTE Prophylaxis: TEDS Knee High Location of Applied Device: Right Leg
--- NOTE | 2020-05-04 08:14 | XR_ITS ---
PROCEDURE: XR CHEST PORTABLE CLINICAL HISTORY: surgery this afternoon Smoker, asthma, COPD and hypertension COMPARISON: CR CXR1 CHEST-PORTABLE from 12/28/2014 CR XR CHEST 2V from 03/05/2020 CR XR CHEST PORTABLE PICC PLAC from 03/25/2020 FINDINGS: Unremarkable cardiovascular structures. No lobar consolidation or collapse. There is patchy density in the right lower lobe which is not significantly changed and may be due to vascular crowding and under penetration. PA and lateral chest may confirm. Overall no significant change. IMPRESSION: No definite acute finding. Please see above for detail Dictated by: Jonnathan Meredith MD 05/05/2020 11:15 Jonnathan Meredith MD in OV 05/05/2020 11:15
--- NOTE | 2020-05-04 08:15 | XR_ITS ---
PROCEDURE: XR FOOT LT MIN 3V CLINICAL INDICATION: infection,cellulitus Pain redness and swelling COMPARISON: CR XR FOOT RT MIN 3V from 03/04/2020 CR XR FOOT RT MIN 3V from 03/12/2020 CR XR FOOT RT MIN 3V from 03/24/2020 FINDINGS: Diffuse soft tissue edema. No bony or joint abnormalities. No obvious soft tissue gas. IMPRESSION: Soft tissue swelling otherwise negative Dictated by: Jonnathan Meredith MD 05/04/2020 11:25 Jonnathan Meredith MD in OV 05/04/2020 11:25
--- NOTE | 2020-05-04 08:17 | XR_ITS ---
PROCEDURE: XR FOOT RT MIN 3V CLINICAL INDICATION: cellulitus, infection Pain redness and swelling COMPARISON: CR XR FOOT RT MIN 3V from 03/04/2020 CR XR FOOT RT MIN 3V from 03/12/2020 CR XR FOOT RT MIN 3V from 03/24/2020 FINDINGS: Bandage artifact overlies the dorsal aspect of the foot. Lucency is noted along the dorsal mid foot area within the soft tissues and could be related to a soft tissue defect or artifact from the bandage. There is a clip present between the proximal phalanges of the 2nd and 3rd digits. No acute bony findings. No fracture or dislocation. No lytic or blastic change. IMPRESSION: Bandage artifact overlies the dorsal aspect of the foot. Lucency is noted along the dorsal mid foot area within the soft tissues and could be related to a soft tissue defect or artifact from the bandage. There is a clip present between the proximal phalanges of the 2nd and 3rd digits Dictated by: Jonnathan Meredith MD 05/04/2020 11:24 Jonnathan Meredith MD in OV 05/04/2020 11:24
--- NOTE | 2020-05-04 08:18 | XR_ITS ---
PROCEDURE: XR ANKLE LT MIN 3V CLINICAL INDICATION: cellulitus, infection in Pain COMPARISON: No exams were available for comparison FINDINGS: There is generalized soft tissue swelling. No fracture or dislocation. No lytic or blastic process. A lucency is noted along the lower leg medially and anteriorly and could represent a skin defect. Please correlate with clinical parameters. There does appear to be a bandage artifact at this area. IMPRESSION: 1. Soft tissue swelling with suspected skin defect along the leg medially and anteriorly. 2. No acute bony findings Dictated by: Jonnathan Meredith MD 05/04/2020 11:23 Jonnathan Meredith MD in [place] 05/04/2020 11:23
--- NOTE | 2020-05-04 08:26 | HMH.PHACONS ---
- Pharmacy Consult Date: 05/04/20 Time: 08:26 Referring provider: DR. ROPER Reason for Consult:: VANCOMYCIN DOSING Allergies and ADEs:: Allergies Allergy/AdvReac Type Severity Reaction Status Date / Time codeine Allergy Severe Anaphylaxis Verified 05/03/20 21:31 guaifenesin [From Mucinex] Allergy Severe SWELLS Verified 05/03/20 21:31 ketorolac [From Toradol] Allergy Severe Difficulty Verified 05/03/20 21:31 Swallowing Home Medications:: Home Medications Medication Instructions Recorded Confirmed Type Metoprolol Succinate [Metoprolol 50 mg PO DAILY 30 Days #30 tab 03/31/20 05/03/20 Rx Succinate 50mg Tablet*] doxycycline hyclate 100 mg capsule 100 mg PO BID 14 Days #28 cap 04/13/20 05/03/20 Rx cholecalciferol (vitamin D3) 1,250 1,250 mcg PO WEEKLY 04/14/20 05/04/20 History mcg (50,000 unit) capsule levothyroxine 25 mcg tablet 25 mcg PO DAILY 04/14/20 05/03/20 History Lisinopril/Hydrochlorothiazide 1 each PO DAILY 05/03/20 05/03/20 History [Zestoretic 10/12.5mg tablet] Albuterol Sulfate [Albuterol 1 puff IH Q6HP PRN 05/04/20 05/04/20 History 0.083% 2.5mg/3mL neb] Collagenase Clostridium Hist. 1 applic TOPICAL DAILY 05/04/20 05/04/20 History [Santyl] Fluticasone/Umeclidin/Vilanter 1 puff IH DAILY 05/04/20 05/04/20 History [Trelegy Ellipta 100-62.5-25] Gabapentin [Gabapentin 100mg Cap] 100 mg PO BID 05/04/20 05/04/20 History Oxycodone HCl 10 mg PO Q6HP PRN 05/04/20 05/04/20 History Height: 1.75 m Weight: 119.408 kg Laboratory Results:: Laboratory Results - last 24 hr 05/03/20 15:50: WBC 7.0, RBC 3.03 L, Hgb 9.5 L, Hct 28.8 L, MCV 94.9 H, MCH 31.5 H, MCHC 33.2, RDW 15.9, Plt Count 87 L, MPV 8.7, Neut % (Auto) 85.0 H, Lymph % (Auto) 9.9 L, [place] % (Auto) 4.3, Eos % (Auto) 0.6, Baso % (Auto) 0.2, Neut # (Auto) 5.9, Lymph # (Auto) 0.7, [place] # (Auto) 0.3, Eos # (Auto) 0.0, Baso # (Auto) 0.0, Total Counted 100, Neutrophils % (Manual) 90 H, Lymphocytes % (Manual) 7 L, Monocytes % (Manual) 3, Platelet Estimate Moderate decrease, RBC Morphology Normal, ESR 80 H 05/03/20 15:50: Sodium 132 L, Potassium 3.8, Chloride 104, Carbon Dioxide 29, Anion Gap 2.8 L, BUN 9, Creatinine 0.60 L, Estimated Creat Clear 244, Estimated GFR 144, Est GFR ( Amer) 175, Glucose 140 H, Calcium 8.3 L, Total Bilirubin 2.0 H, AST 49, ALT 33, Alkaline Phosphatase 193 H, C-Reactive Protein 71.7 H, Total Protein 6.6, Albumin 2.7 L, Globulin 3.9 H, Albumin/Globulin Ratio 0.7 L 05/03/20 15:50: Lactate 2.3 H 05/03/20 15:50: SARS-CoV-2 IgG Ab (Rapid) Negative, SARS-CoV-2 IgM Ab (Rapid) Negative 05/03/20 20:00: Lactate 1.1 Medical History: Reports:: Chronic Obstructive Pulmonary Disease (COPD), Hypertension, MRSA Denies:: Cancer, Diabetes Mellitus Type 1, Diabetes Mellitus Type 2, Seizures Assessment and Plan - Assessment and plan all Dx Assessment and Plan for all problems:: PATIENT RECEIVED VANCOMYCIN 2250 MG Q12H X2 DOSES OVERNIGHT. RECOMMEND SWITCHING TO VANCOMYCIN 2000 MG Q8H AT THIS TIME. WILL OBTAIN TROUGH LEVEL TONIGHT PRIOR TO FOURTH DOSE. PHARMACY WILL FOLLOW DAILY AND ADJUST APPROPRIATE.
--- NOTE | 2020-05-04 08:26 | HMH.ORTHOCON ---
*Admission Date: 05/03/20 *Reason for consult:: B/L LE Cellulitis, Ulcers *History of present illness: Mr. Ragland is a 45-year-old man well-known to the podiatry service who was admitted yesterday 05/03/2020 for bilateral lower extremity cellulitis. At the time of admission he was febrile with a temperature of 102. Patient did have a full breakfast this morning around 7 AM. He complains of pain to both legs at the bedside. He is asking for oxycodone 10mg and IV pain medications. Patient did have home health care arranged but states he refused to let them put the wound VAC on because it hurt too much . He states the dressing was last changed last week unsure of what day. He did see his PCP Dr. Stanton last 04/28/2020. Patient states he does have doxycycline but has not been taking twice daily as directed. Of note patient has also no showed his last 2 podiatry appointments and was last seen 04/13/2020. [facility] History I have reviewed the patient's past medical history: Yes Medical History: Reports:: Chronic Obstructive Pulmonary Disease (COPD), Hypertension, MRSA Denies:: Cancer, Diabetes Mellitus Type 1, Diabetes Mellitus Type 2, Seizures *Have you ever received a pneumonia vaccine?: Yes *Have you received a flu vaccine this season?: No (pt refuses) Other Medical History: Reports: Arthritis, Liver Disease (cirrhosis) Laterality Cases: Bilateral: Tonsillectomy, Other Other Surgeries: Yes: Ureter Stent, Other Amputation: No Fractures: Yes - *Social History Last grade of school completed: 9th or 10th Smoking Status: Current some day smoker Tobacco Type: cigarettes # Packs/Day (cigarettes): 0 Alcohol Intake: former Substance Use Type: former substance user, opiates, painkillers *Occupational Status:: disabled Housing: house Household Members: family *Travel in the last 8 weeks: None Family Hx:: Asthma, Cancer, Hyperlipidemia, Hypertension, Alcoholism Review of Systems - Review of Systems Review of systems:: pertinent systems reviewed and negative unless documented below - Constitutional Reports chills, Reports fever(s), Reports lack of energy, Reports weakness - Eyes Denies blind spots - ENT Denies abnormal hearing - *Cardiovascular Reports leg swelling, Denies shortness of breath - *Respiratory Denies shortness of breath - *Gastrointestinal Denies abdominal pain, Denies nausea, Denies vomiting - *Genitourinary Denies difficulty urinating - *Musculoskeletal Reports joint swelling, Reports body aches - Integumentary/Breasts Reports hair loss, Reports dry skin, Reports skin ulcer, Reports wounds - *Neurologic Reports tingling/numbness/burning sensations - Psychiatric Denies abnormal sleep pattern - Endocrine Reports increased thirst - Hematologic/Lymphatic Reports enlarged lymph nodes - Allergic/Immunologic Denies GI upset with certain foods Meds Home Medications Medication Instructions Recorded Confirmed Type Metoprolol Succinate [Metoprolol 50 mg PO DAILY 30 Days #30 tab 03/31/20 05/03/20 Rx Succinate 50mg Tablet*] doxycycline hyclate 100 mg capsule 100 mg PO BID 14 Days #28 cap 04/13/20 05/03/20 Rx cholecalciferol (vitamin D3) 1,250 1,250 mcg PO WEEKLY 04/14/20 05/04/20 History mcg (50,000 unit) capsule levothyroxine 25 mcg tablet 25 mcg PO DAILY 04/14/20 05/03/20 History Lisinopril/Hydrochlorothiazide 1 each PO DAILY 05/03/20 05/03/20 History [Zestoretic 10/12.5mg tablet] Albuterol Sulfate [Albuterol 1 puff IH Q6HP PRN 05/04/20 05/04/20 History 0.083% 2.5mg/3mL neb] Collagenase Clostridium Hist. 1 applic TOPICAL DAILY 05/04/20 05/04/20 History [Santyl] Fluticasone/Umeclidin/Vilanter 1 puff IH DAILY 05/04/20 05/04/20 History [Trelegy Ellipta 100-62.5-25] Gabapentin [Gabapentin 100mg Cap] 100 mg PO BID 05/04/20 05/04/20 History Oxycodone HCl 10 mg PO Q6HP PRN 05/04/20 05/04/20 History Allergies Allergy/AdvReac Type Severity Reaction Status Date / Time jeremy [place]
--- NOTE | 2020-05-04 08:40 | HMH.HP ---
*Admission Date: 05/03/20 *Chief complaint: cellulitis *History of present illness: 45 yr old male presents for having increased swelling and pain in left leg after seeing Dr Stanton on the Apr. Pt complains of left leg pain and swelling feeling fatigued for 3 to 4 days. Has been feeling feverish with fatigue. Pt states in ed did not take his temperature today, did not realize he had a fever today. He has a history of recent surgery on his right foot by Dr. Karimi on 03/25/2020. Review of records shows he had an incision and drainage. He says he has been on doxycycline since that surgery.He has had right leg ulcers on his anterior right lower leg since January 2019. He says he started with one ulcer and it has expanded to 3 ulcers. on last admission pt was sent to [facility] for rehab. Pt admitted for worsening of cellulitis and podiatry consult. [facility] History I have reviewed the patient's past medical history: Yes Medical History: Reports:: Chronic Obstructive Pulmonary Disease (COPD), Hypertension, MRSA Denies:: Cancer, Diabetes Mellitus Type 1, Diabetes Mellitus Type 2, Seizures *Have you ever received a pneumonia vaccine?: Yes *Have you received a flu vaccine this season?: No (pt refuses) Other Medical History: Reports: Arthritis, Liver Disease (cirrhosis) Laterality Cases: Bilateral: Tonsillectomy, Other Other Surgeries: Yes: Ureter Stent, Other Amputation: No Fractures: Yes - *Social History Last grade of school completed: 9th or 10th Smoking Status: Current some day smoker Tobacco Type: cigarettes # Packs/Day (cigarettes): 0 Alcohol Intake: former Substance Use Type: former substance user, opiates, painkillers *Occupational Status:: disabled Housing: house Household Members: family *Travel in the last 8 weeks: None Family Hx:: Asthma, Cancer, Hyperlipidemia, Hypertension, Alcoholism Review of Systems - Review of Systems Review of systems:: pertinent systems reviewed and negative unless documented below - Constitutional Reports fatigue, Reports fever(s), Reports malaise - Eyes Denies blurry vision - ENT Denies bleeding gums, Denies nasal congestion - *Cardiovascular Denies chest pain at rest, Denies shortness of breath - *Respiratory Denies chest congestion - *Gastrointestinal Denies bloating, Denies nausea, Denies vomiting - *Genitourinary Denies difficulty urinating - *Musculoskeletal Reports abnormal walking, Reports stiffness, Reports other - Integumentary/Breasts Reports non-healing lesions, Reports sores - *Neurologic Reports abnormal walking, Denies dizziness - Psychiatric Denies lack of enjoyment, Denies anxiety - Endocrine Denies excessive sweating - Hematologic/Lymphatic Denies enlarged lymph nodes - Allergic/Immunologic Denies itchy eyes Meds Home Medications Medication Instructions Recorded Confirmed Type Metoprolol Succinate [Metoprolol 50 mg PO DAILY 30 Days #30 tab 03/31/20 05/03/20 Rx Succinate 50mg Tablet*] doxycycline hyclate 100 mg capsule 100 mg PO BID 14 Days #28 cap 04/13/20 05/03/20 Rx cholecalciferol (vitamin D3) 1,250 1,250 mcg PO WEEKLY 04/14/20 05/04/20 History mcg (50,000 unit) capsule levothyroxine 25 mcg tablet 25 mcg PO DAILY 04/14/20 05/03/20 History Lisinopril/Hydrochlorothiazide 1 each PO DAILY 05/03/20 05/03/20 History [Zestoretic 10/12.5mg tablet] Albuterol Sulfate [Albuterol 1 puff IH Q6HP PRN 05/04/20 05/04/20 History 0.083% 2.5mg/3mL neb] Collagenase Clostridium Hist. 1 applic TOPICAL DAILY 05/04/20 05/04/20 History [Santyl] Fluticasone/Umeclidin/Vilanter 1 puff IH DAILY 05/04/20 05/04/20 History [Trelegy Ellipta 100-62.5-25] Gabapentin [Gabapentin 100mg Cap] 100 mg PO BID 05/04/20 05/04/20 History Oxycodone HCl 10 mg PO Q6HP PRN 05/04/20 05/04/20 History Allergies Allergy/AdvReac Type Severity Reaction Status Date / Time codeine Allergy Severe Anaphylaxis Verified 05/03/20 21:31 guaifenesin [From Mucine
[2020-05-04 09:27] LABS: Hemoglobin A1C 4.6 % (4.0-6.0)
--- NOTE | 2020-05-04 09:29 | ECG_ITS ---
APPROVED REPORT Exam: Resting ECG HR:107 bpm ECG Measurements Heart Rate 107 AXES WV 126 P 40 QRSd 102 QRS 27 QT 376 T 64 QTc 501 <Conclusion> Sinus tachycardia Nonspecific ST and T wave abnormality Abnormal ECG Electronically signed by : Wilfredo Muñoz, 05/04/2020 20:52:51
--- NOTE | 2020-05-04 10:27 | HMH.PHAINT ---
HOME MEDICATION RECONCILIATION COMPLETED USING LIST FROM PRIMARY CARE OFFICE AND CLINIC PHARMACY. PT HAS NOT FILLED LEVOTHYROXINE PRESCRIPTION SINCE OCTOBER OF 2018 DESPITE PRIMARY CARE THINKING PT STILL TAKES MEDICATION DAILY. MEDICATION NONCOMPLIANCE WILL NEED TO BE ADDRESSED AT DISCHARGE.
[2020-05-04 11:43] LABS: Thyroid Stimulating Hormone 0.63 uIU/mL (0.465-4.68)
--- NOTE | 2020-05-04 11:46 | SW/DCPLANNER ---
Patient was using [facility] of prior to [facility] admission for dressing changes. Patient stated that he has already informed his nurse he is at [facility]. I will also speak with Mounikari. Discharge date is unknown at this time. I will continue to follow up with this patient during stay.
--- NOTE | 2020-05-04 13:27 | PC.NURSE ---
PT IS OFF THE FLOOR FOR SURGERY AT THIS TIME. EARLY THIS MORNING WAS AT BEDSIDE AND CLEANED,MEASURED AND REDRESSED ULCERS TO BLE. WOUNDS REQUIRED DEBRIDEMENT. PT WAS AGREEABLE TO SURGERY AND WAS VERY CONCERNED ON HOW WE WERE GOING TO MANAGE HIS PAIN AFTERWARDS. PT HAS REDNESS/ 2+ PITTING EDEMA NOTED TO BLE. REDNESS SPREADS ALL THE WAY UP TO THE THIGH IN LLE. BLE WARM/TENDER TO TOUCH. PT WAS ASKED BEFORE LEAVING THE FLOOR FOR SURGERY IF HE WANTED US TO CALL SOMEONE AND HE STATED NO AND HE HAS NOT TOLD HIS ONLY CONTACT THAT IS LISTED IN THE COMPUTER THAT HE IS IN THE HOSPITAL.
--- NOTE | 2020-05-04 14:44 | HMH.OPNOTE ---
Date of procedure: 05/04/20 Pre-op Diagnosis:: 1. Right foot ulcer 2. Left foot ulcer 3. Left ankle ulcer x3 4. B/L LE cellulitis 5. B/L LE lymphedema 6. Onychogryphosis 7. Onychomyosis, b/l Post-op Diagnosis:: Same Procedure performed:: 1. B/L foot incision and drainage 2. Right foot deep multiple compartment wound debridement 3. Left foot ulcer wound debridement x1 4. Left ankle ulcer wound debridement x3 5. Left ankle tibia percutaneous bone biospy 6. Nail debridement x10 Surgeon:: Amaya Karimi DPM ADMINISTRATIVE ANALYST:: Wilfredo Malcolm Anesthesia: GETA Estimated blood loss (mL): 30 Clinical Note:: Mr. aRgland is a 45-year-old man well-known to the podiatry service who was admitted yesterday 05/03/2020 for bilateral lower extremity cellulitis. At the time of admission he was febrile with a temperature of 102. Patient did have a full breakfast this morning around 7 AM. He complains of pain to both legs at the bedside. He is asking for oxycodone 10mg and IV pain medications. Patient did have home health care arranged but states he refused to let them put the wound VAC on because it hurt too much . He states the dressing was last changed last week unsure of what day. He did see his PCP Dr. Stanton last 04/28/2020. Patient states he does have doxycycline but has not been taking twice daily as directed. Of note patient has also no showed his last 2 podiatry appointments and was last seen 04/13/2020. Sx, 03/25/20: S/p right foot incision and drainage, deep multiple compartment wound debridement, percutaneous bone biospy, leg ulcer debridement, leg ulcer debridement x2, nail debridement x10, surgical clips removal. *03/05/20: S/p right foot abscess incision and drainage, wound debridement, delayed primary closure and s/p left leg ulcer wound debridement x2. POD #5w, 5d Right foot wound culture, 03/05/20: Serratia marcescens, Aeromonas hydrophila (CRE) Labs 03/05/20: wbc 4.8, esr 81, crp 53.6 Labs 03/06/20: wbc 7.2, esr 61, crp 37.8, glucose 124, Hac1 4.3% Intra-op specimens, 03/25/20: Right foot tissue culture: E. coli (Carbapenem Resistant Enterobacteriaceae) Right foot bone culture: E. coli (Carbapenem Resistant Enterobacteriaceae) Bone path: Fragmented bony trabeculae with fibrosis. Negative for acute inflammation or malignancy. 04/13/20, in office wound culture: MRSA Patient has a history of Serratia marcescens and Aeromonas hydrophila, Carbapenem Resistant Enterobacteriaceae (CRE) from 03/05/20 right foot wound cultures. He has had surgical debridement 03/05/2020 and 03/25/2020. He was sent to [facility] rehab with the intent of wound VAC placement, PICC, IV Abx Zosyn (for CRE) x 4-6 weeks, ID consult then follow up arranged for Podiatry and ID. Patient reports I never saw no infection person . He states the PICC was removed 04/10/20. HHC was arranged. They, office several times saying patient here never answered the phone or answer the door or was not home for them to do dressing changes. Patient refused to let them put the wound VAC on. PRE-OP INFECTION: We discussed conservative versus surgical treatment options. Conservative treatment options include local wound care, oral and IV antibiotics, change in shoe wear, taping/padding. Patient also understands that they could have wound healing complications including delayed healing and infection. We discussed that if the wound does not heal, it is possible that they may need a more proximal amputation and could result in further loss of digits, loss of partial foot or loss of leg. We discussed the risks and benefits in great detail. Other surgical risks include: prolonged pain and swelling, further infection requiring oral or IV antibiotics, delay in healing of soft tissue or bone, nerve or blood vessel damage, CRPS/RSD, DVT, anesthesia complications, and even . Patient understands he is high risk for repeat surgery and loss of limb due to his noncompliance, refusing home health care to do their necessary treatment, not
--- NOTE | 2020-05-04 14:54 | HMH.ANESCL ---
[facility] Anesthesia Checklist - Patient Identification Patient Identification: Arm Band, Verbal (Name & ) - Structural Data Admitted From: Home Planned Operative Procedure/s: i and d foot Consent for Planned Operative Procedure(s) Verified: Yes Verified Documents: History and Physical - NPO Status Verified Time NPO: 07:00 - Chart Verification Results Verified: CBC, BMP - Additional verifications Patient : No Anesthesia Reactions: No Hx Blood Transfusions: No Blood Transfusion Reaction: No Cephalosporin Allergy: No Previous Colonoscopy: No - Cardiovascular Assessment Heart Sounds: S1 & S2 Pulse Strength: Baseline Pulse Rhythm: Regular Peripheral Edema: No - Airway Assessment C-Spine Mobility Assessed: Yes TMJ Mobility Assessed: Yes Dentition: Good Dentition - Neurological Assessment Level of Consciousness: Awake, Alert, Appropriate Hx Seizures: No Numbness or tingling in extremities: No - Anesthesia Plan Anesthesia Risk discussed: Yes Anesthesia Plan: Verified ASA Class: III Anesthesia Type: General [facility] History I have reviewed the patient's past medical history: Yes Medical History: Reports:: Chronic Obstructive Pulmonary Disease (COPD), Hypertension, MRSA Denies:: Cancer, Diabetes Mellitus Type 1, Diabetes Mellitus Type 2, Seizures *Have you ever received a pneumonia vaccine?: Yes *Have you received a flu vaccine this season?: No (pt refuses) Other Medical History: Reports: Arthritis, Liver Disease (cirrhosis) Anesthesia experience/problems:: none Laterality Cases: Bilateral: Tonsillectomy, Other Other Surgeries: Yes: Ureter Stent, Other Amputation: No Fractures: Yes - *Social History Last grade of school completed: 9th or 10th Smoking Status: Current some day smoker Tobacco Type: cigarettes # Packs/Day (cigarettes): 0 Alcohol Intake: former Substance Use Type: former substance user, opiates, painkillers *Occupational Status:: disabled Housing: house Household Members: family *Travel in the last 8 weeks: None Family Hx:: Asthma, Cancer, Hyperlipidemia, Hypertension, Alcoholism
--- NOTE | 2020-05-04 14:55 | P.PN_ITS ---
[facility] Anesthesia Record Part I Intake, IV Amount: 900 (0) Estimated blood loss (mL): 10 Urine output (mL): 50 Blood Products used (#): none Blood Pressure: 143/47 SaO2: 98 Pulse Rate: 87 Respiratory Rate: 20 Temperature: 98.0 F Patient is:: Awake, Stable Stable to PACU at:: 14:50
--- NOTE | 2020-05-04 17:06 | HMH.ANESII ---
[facility] Anesthesia Record Part II Discharge Time: 15:20 Destination: Medical Surgical Department PACU nurse assessment reviewed?: Yes Patient Condition:: Good Anesthesia Complications:: None Swallowing reflex intact?: Yes Cyanosis?: No Blood Pressure: 146/83 Pulse Rate: 83 Temperature: 98.2 F Mental Status: Alert & Oriented Pain level:: 1 Nausea and/or vomitting:: None Intake, IV Amount: 25
--- NOTE | 2020-05-04 18:54 | PC.NURSE ---
PT IS RESTING IN BED. RECEIVED PAIN MEDICATION FOR DISCOMFORT. ALERT AND ORIENTED X4. DRESSINGS TO THE BLE C/D/I. PT NEEDS TO BE ENCOURAGED TO TURN AND REPOSITION IN BED. LUNG SOUNDS CLEAR. BOWEL SOUNDS NORMAL. PT STATES HIS LAST BOWEL MOVEMENT WAS 2 DAYS AGO. EATING AND DRINKING WELL. WILL CONTINUE TO MONITOR.
--- NOTE | 2020-05-04 19:10 | PC.NURSE ---
report given to karolina
[2020-05-04 22:00] LABS: Vancomycin,Trough 17.7 ug/mL (5.0-10.0)
--- NOTE | 2020-05-04 22:00 | PC.NURSE ---
Spoke with Italo from [facility]. Gave okay to administered scheduled vanc at this time.
[2020-05-05 01:52] VITALS: BP 124/73; PULSE 80; RESP 20; TEMP 36.7; O2SAT 98
--- NOTE | 2020-05-05 03:03 | PC.NURSE ---
Addendum entered by Adri Saul RN 05/05/20 03:10: Administered Morphine and Oxycodone per mar x1 thus far this shift for pain relief. States his pain is a 10/10 on pain scale each time. Pt also states he can not take Tylenol for break through pain. Original Note: Pt is alert and oriented x4. No acute changes noted from previous shift. Pt noted restless this shift. PERRLA. 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 Cap refill < 3 seconds. Tolerated RA well with no c/o SOA. Bilateral lung sounds noted clear t/o upon auscultation. RR noted even and unlabored. Encouraged use of incentive spirometer while awake this shift. Pt demonstrated appropriate use. Active bowel sounds noted in all 4 quads. Excellent appetite, requests multiple snacks t/o shift. Encouraged pt to drink water versus soda, pt states my kidneys are fine . Pt continued to request soda. NO BM thus far this shift. Denies amb tenderness upon palpation. Dsg to BLE noted c/d/i. Elevated BLE on pillows while lying in bed. Pt able to move digits appropriately to BLE. VSS. Remains safe. Call light within reach. Will continue to monitor.
[2020-05-05 04:39] VITALS: BP 130/58; PULSE 72; RESP 20; TEMP 36.6; O2SAT 99
[2020-05-05 05:49] VITALS: BMI 40.3
[2020-05-05 06:38] LABS: Basophils % 0.1 % (0.1-2.0); Eosinophils % 0.1 % (0.1-12.0); Hematocrit 27.1 % (42.0-52.0); Hemoglobin 9.2 g/dL (14.1-18.0); Lymphocytes # 0.5 K/mm3 (0.7-4.5); Lymphocytes % 7.1 % (10-50); Mean Corpuscular HGB Conc 33.8 g/dL (31.8-35.4); Mean Corpuscular Hemoglobin 31.6 pg (27.0-31.2); Mean Corpuscular Volume 93.6 fl (80-94); Mean Platelet Volume 9.3 fl (7.4-10.4); Monocytes # 0.4 K/mm3 (0.1-1.0); Monocytes % 5.3 % (1.7-9.3); Neutrophils # 6.1 K/mm3 (1.8-7.8); Neutrophils % 87.5 % (37.0-80.0); Platelet Count 97 K/mm3 (142-424); Red Cell Distribution Width 15.9 % (11.5-17.5); White Blood Count 6.9 K/mm3 (4.8-10.8)
[2020-05-05 06:41] LABS: MANUAL DIFFERENTIAL MANUAL DIFFERENTIAL (MANUAL DIFF)
[2020-05-05 06:47] LABS: Chloride 105 mmol/L (98-107); Potassium 4.4 mmoL/L (3.5-5.1); Sodium 133 mmol/L (136-145)
[2020-05-05 06:50] LABS: Alanine Aminotransferase 22 U/L (12-78); Albumin Level 2.1 g/dl (3.5-5.0); Albumin/Globulin Ratio 0.6 (1.1-1.8); Alkaline Phosphatase 137 U/L (38-126); Anion Gap 6.4 mEq/L (5-15); Aspartate Amino Transferase 28 U/L (17-59); Bilirubin,Total 0.9 mg/dl (0.2-1.3); Blood Urea Nitrogen 14 mg/dl (9-20); Calcium 7.6 mg/dl (8.4-10.2); Carbon Dioxide 26 mmol/L (22.0-30.0); Creatinine Clearance Estimated 147 mL/min (50-200); Estimated Glomerular Filt Rate 144 ml/min (>60); GFR (African American) 175 ML/MIN (>60); Globulin 3.5 g/dL (1.3-3.2); Glucose 160 mg/dl (74-100); Total Protein,Serum 5.6 g/dl (6.3-8.2)
[2020-05-05 06:55] LABS: C-Reactive Protein 100.9 mg/L (0-4)
[2020-05-05 07:42] VITALS: BP 127/62; PULSE 69; RESP 19; TEMP 36.6; O2SAT 99
[2020-05-05 07:55] LABS: Erythrocyte Sedimentation Rate 66 mm/hr (0-15)
--- NOTE | 2020-05-05 08:04 | HMH.ORTHPN ---
Subjective Date: 05/05/20 Time: 07:35 Principal diagnosis: B/L LE cellulitis, wounds Interval history: Patient is resting comfortably at the bedside this morning eating breakfast. He reports pain to bilateral lower extremity. He states the pain is 10 out of 10 . He shows no signs of pain at this time prior to dressing change. Patient denies nausea/vomiting, fever/chills, shortness of breath/chest pain. PN: Obj Ex Vital signs: Temp Pulse Resp BP Pulse Ox 97.8 F 69 19 127/62 99 05/05/20 07:42 05/05/20 07:42 05/05/20 07:42 05/05/20 07:42 05/05/20 07:42 - Constitutional morbidly obese - Routine HEENT Exam Head: Present: normocephalic Eye: Present: EOMI ENT: Present: mucous membranes moist - Routine Neck Exam Present: supple - Routine Chest/Breast/Axilla Exam Chest wall: Absent: tenderness - Routine Respiratory Exam Present: CTA bilaterally. Absent: respiratory distress - Routine Cardiovascular Exam Present: RRR - Routine Abdominal Exam Present: obese - Routine Extremities Exam Present: edema. Absent: calf tenderness - Detailed Lower Extremity Exam Comments: RIGHT FOOT: Right foot dorsal ulcer extending from the second to the fifth metatarsals. Ulcer extended full-thickness through skin subcutaneous tissue and deep fascia. There is exposed extensor tendon noted. Wound base 80% granular, 20% fibrotic. Wound measured 6.7 x 7.5 x 0.4 cm. No deep infection or area that probed to the level of the bone. LEFT FOOT: Left foot dorsal lateral ulcer over the 4?5th metatarsal shaft region, full-thickness through skin and subcutaneous tissue. Wound measured 1.2 x 1.5 x 0.2 cm, wound base 75% granular, 25% yellow fibrotic tissue. No purulence malodor or drainage. Left anterior ankle/valero had 3 ulcers. The anterior medial ulcer was the largest, there was an area that probed to the level of the tibia-closed with prolene so no exposed bone noted. Some clear serous drainage noted. Wound base 80% granular, 20% fibrotic tissue with bleeding noted, wound measured 6.5 x 3.5 x 0.4 cm. The left anterior lateral ankle ulcer: 80% granular, 20% fibrotic tissue, measured 3.2 x 3 x 0.2 cm. The left anterior inferior ulcer was 100% granular full-thickness and measured 1.1 x 1.5 x 0.2 cm. No purulence, malodor noted at bedside today. The B/L LE cellulitis has improved some. Less edema and erythema to the left thigh. Progress Note: A&P (1) Abscess of left lower extremity Status: Acute Current Visit: Yes (2) Sepsis Status: Acute Current Visit: Yes (3) Venous stasis ulcers Status: Acute Current Visit: Yes (4) Abscess of right foot Status: Acute Current Visit: No (5) Bilateral lower extremity edema Status: Acute Current Visit: No (6) Bilateral lower leg cellulitis Status: Acute Current Visit: No (7) Right foot ulcer Status: Acute Current Visit: No Assessment and Plan for All Diagnoses:: Surgery 05/04/20, S/p: B/L foot incision and drainage, Right foot deep multiple compartment wound debridement, Left foot ulcer wound debridement x1, Left ankle ulcer wound debridement x3, Left ankle tibia percutaneous bone biospy, Nail debridement x10 POD#1 Intra-op specimens, 05/04/20: Left anterior ulcer tissue culture: pending Left foot wound culture: GNR Left anterior tibia bone culture: pending Left anterior tibia bone pathology: pending 05/03/20: left leg wound culture: Pseudomonas aeruginosa (CRE) Bilateral lower extremity dressings removed at the bedside. Wounds reevaluated. Overall the edema and erythema has improved especially to the left thigh. Right dorsal foot wound noted. Left dorsal lateral foot wound and 3 anterior ankle/valero wounds noted. See PE extremity section for measurements. Wounds cleansed with Betadine. Xeroform, Betadine soaked 4x4's applied with a dry sterile dressing bilaterally. Heel suspended off pillows. 05/05/20: esr 80 to 66 1. B/L LE dressing change: xerofor
[2020-05-05 08:09] LABS: Lymphocytes % 8 % (10-50); Monocytes % 2 % (2-9); Neutrophils % 90 % (42-76); Platelet Estimate Slight Decrease; RBC Morphology Normal; Total Cells Counted 100
--- NOTE | 2020-05-05 09:38 | SW/DCPLANNER ---
Addendum entered by [facility] 05/06/20 11:48: Debbie with [facility] stated that everything has been reviewed and is good for this patient to resume services. Patient will discharge home today. Addendum entered by [facility] 05/06/20 10:06: Patient has refused placement at this time. I have informed [facility]. This patient will discharge home today. I will set patient up to resume services with [facility] health. Addendum entered by Nidhi Reilly 05/05/20 14:58: SENT PT EVAL TO [facility].. WILL FOLLOW UP TO SEE IF THEY RECEIVED IT.. Addendum entered by [facility] 05/05/20 13:54: Rebeka from [facility] has stated they can not accept this patient at this time. [facility] continues to review this referral. Addendum entered by [facility] 05/05/20 13:48: At this time [facility] and [facility] are reviewing patient information. Once PT/OT evaluations are available they will be faxed to both facilities. Patient is now stating they he would really prefer to discharge home at discharge. I told patient that we would continue to discuss and would like to wait and see what [facility] and [facility] have to say. [facility] has denied this patient at this time. I will follow up with facilities, patient and MD once more information is available. Addendum entered by [facility] 05/05/20 13:17: Melissa with [facility] has stated they can NOT accept this patient at this time. Currently Danette with [facility] and Rebeka with [facility] are reviewing patient information. Patient is aware of situation. I will fax PT/OT evaluations once available. Addendum entered by [facility] 05/05/20 09:56: Patient has stated that he is NOT agreeable for placement if he has to go under [facility] pending due to not being able to afford to give up his monthly income check but $40 for payment. Patient information has been faxed to [facility] and [facility] to see if he is a candidate under his MCR benefit (if he has a skilled benefit). I will continue to follow up with facilities. Original Note: I have spoke with this patient regarding discharge plans. Patient is agreeable to placement at this time and does not have a preference. Patient information has been faxed to [facility] at this time. I will also fax patient information to [facility] as they have beds available at this time. I will continue to follow up with patient and facilities.
--- NOTE | 2020-05-05 10:25 | HMH.PHACONS ---
- Pharmacy Consult Date: 05/05/20 Time: 10:25 Referring provider: DR. ROPER/RHYS Reason for Consult:: VANCOMYCIN TROUGH LEVEL Allergies and ADEs:: Allergies Allergy/AdvReac Type Severity Reaction Status Date / Time codeine Allergy Severe Anaphylaxis Verified 05/03/20 21:31 guaifenesin [From Mucinex] Allergy Severe SWELLS Verified 05/03/20 21:31 ketorolac [From Toradol] Allergy Severe Difficulty Verified 05/03/20 21:31 Swallowing Home Medications:: Home Medications Medication Instructions Recorded Confirmed Type Metoprolol Succinate [Metoprolol 50 mg PO DAILY 30 Days #30 tab 03/31/20 05/03/20 Rx Succinate 50mg Tablet*] cholecalciferol (vitamin D3) 1,250 1,250 mcg PO WEEKLY 04/14/20 05/04/20 History mcg (50,000 unit) capsule levothyroxine 25 mcg tablet 25 mcg PO DAILY 04/14/20 05/03/20 History Lisinopril/Hydrochlorothiazide 1 each PO DAILY 05/03/20 05/04/20 History [Zestoretic 10/12.5mg tablet] Albuterol Sulfate [Albuterol 1 puff IH Q6HP PRN 05/04/20 05/04/20 History 0.083% 2.5mg/3mL neb] Collagenase Clostridium Hist. 1 applic TOPICAL DAILY 05/04/20 05/04/20 History [Santyl] Fluticasone/Umeclidin/Vilanter 1 puff IH DAILY 05/04/20 05/04/20 History [Trelegy Ellipta 100-62.5-25] Gabapentin [Gabapentin 100mg Cap] 100 mg PO BID 05/04/20 05/04/20 History Oxycodone HCl 10 mg PO Q6HP PRN 05/04/20 05/04/20 History Height: 1.75 m Weight: 123.491 kg Laboratory Results:: Laboratory Results - last 24 hr 05/03/20 15:50: TSH 0.63 05/04/20 20:32: Vancomycin Trough 17.7 H 05/05/20 06:12: ESR 66 H 05/05/20 06:12: C-Reactive Protein 100.9 H 05/05/20 06:12: WBC 6.9, RBC 2.90 L, Hgb 9.2 L, Hct 27.1 L, MCV 93.6, MCH 31.6 H, MCHC 33.8, RDW 15.9, Plt Count 97 L, MPV 9.3, Neut % (Auto) 87.5 H, Lymph % (Auto) 7.1 L, [place] % (Auto) 5.3, Eos % (Auto) 0.1, Baso % (Auto) 0.1, Neut # (Auto) 6.1, Lymph # (Auto) 0.5 L, [place] # (Auto) 0.4, Eos # (Auto) 0.0, Baso # (Auto) 0.0, Total Counted 100, Neutrophils % (Manual) 90 H, Lymphocytes % (Manual) 8 L, Monocytes % (Manual) 2, Platelet Estimate Slight decrease, RBC Morphology Normal 05/05/20 06:12: Sodium 133 L, Potassium 4.4, Chloride 105, Carbon Dioxide 26, Anion Gap 6.4, BUN 14 D, Creatinine 0.60 L, Estimated Creat Clear 147, Estimated GFR 144, Est GFR ( Amer) 175, Glucose 160 H, Calcium 7.6 L, Total Bilirubin 0.9, AST 28 D, ALT 22 D, Alkaline Phosphatase 137 H, Total Protein 5.6 L, Albumin 2.1 L, Globulin 3.5 H, Albumin/Globulin Ratio 0.6 L Medical History: Reports:: Chronic Obstructive Pulmonary Disease (COPD), Hypertension, MRSA Denies:: Cancer, Diabetes Mellitus Type 1, Diabetes Mellitus Type 2, Seizures Assessment and Plan (1) Abscess of left lower extremity Current visit: Yes Status: Acute Category: Medical Code(s): L02.416 - Cutaneous abscess of left lower limb (2) Sepsis Current visit: Yes Status: Acute Qualifiers: Sepsis type: sepsis due to unspecified organism Sepsis acute organ dysfunction status: without acute organ dysfunction Qualified Code(s): A41.9 - Sepsis, unspecified organism Category: Medical Code(s): A41.9 - Sepsis, unspecified organism (3) Venous stasis ulcers Current visit: Yes Status: Acute Qualifiers: Venous stasis ulcer site: other part of lower leg Varicose vein presence: without varicose veins Laterality: left Non-pressure ulcer stage: with fat layer exposed Qualified Code(s): I87.2 - Venous insufficiency (chronic) (peripheral); L97.822 - Non-pressure chronic ulcer of other part of left lower leg with fat layer exposed Category: Medical Code(s): I83.009 - Varicose veins of unspecified lower extremity with ulcer of unspecified site; L97.909 - Non-pressure chronic ulcer of unspecified part of unspecified lower leg with unspecified severity (4) Abscess of right foot Current visit: No Status: Acute Category: Medical Code(s): L02.611 - Cutaneous abscess of right foot (5) Bila
[2020-05-05 11:34] VITALS: BP 136/76; PULSE 75; RESP 18; TEMP 36.7; O2SAT 99
--- NOTE | 2020-05-05 14:49 | HMH.PTEV ---
Physical Therapy Evaluation Rehab PT IP Evaluation Start: 05/05/20 13:15 Freq: .once Status: Active Protocol: Document 05/05/20 14:45 PHORNE (Rec: 05/05/20 14:49 PHORNE [id number]) Subjective/History History History 45 yowm adm to [facility] with LE cellulitis with multiple chronic LE wounds that he has been lax about caring for. He lives alone, has rolling walker. Subjective Subjective Pt c/o pain B lower legs, but did not rate at this time. Rehab PT IP Eval Objective Appearance Patient Behavior Appropriate Patient Orientation Person,Place,Time Difficulty following instructions none Speech Pattern Clear Ambulation Patient Able to Ambulate Yes Ambulation Observation IP General Gait Pattern Observation Decrease Weight Bear (R) Ambulation Distance (feet) 3 Ambulation Assistive Device Rolling Walker Ambulation Ability Contact Guard/Hand Hold Balance Ability to Arise Able, uses arms to help Sitting Balance Steady, safe Standing Balance Steady, wide stance Dynamic Sitting Balance Ability Good Dynamic Standing Balance Ability Fair Transfers Bed Transfer Ability Contact Guard/Hand Hold Chair Transfer Ability Contact Guard/Hand Hold Sit to Stand Bed Transfer Ability Contact Guard/Hand Hold Sit to Stand Chair Transfer Ability Contact Guard/Hand Hold ROM All Extremities PT ROM Status WFL MMT All Extremities PT MMT WFL Rehab PT IP prob,goals,plan Problems Date of Evaluation: 05/05/20 PT IP Problems Bed Mobility,Transfers,Gait Rehab Potential Rehab Potential Fair Equipment Needs Assistive Devices Rolling / Wheeled Walker Plan PT Intervention Plan Bed Mobility,Transfers,Gait, Therapeutic Exercise PT Plan Frequency BID Duration LOS Discharge Goals Bed Transfer Ability Supervision/Stand by Sit to Stand Chair Transfer Ability Supervision/Stand by Ambulation Assistive Device Rolling Walker Ambulation Distance (feet) 10 Discharge Plan PT Discharge Plan Pt with have difficulty maintaining compliance with NWB of R LE and with wound care and is therefore most appropriate for rehab placement at this time. G -code Required No Eval Complexity Eval Charge Codes [id number] - M
[2020-05-05 16:00] VITALS: BP 134/68; PULSE 70; RESP 17; TEMP 36.7; O2SAT 99
--- NOTE | 2020-05-05 16:08 | HMH.OTEV ---
OT Inpatient Evaluation Rehab OT IP Evaluation Start: 05/05/20 13:16 Freq: ONCE Status: Complete Protocol: Document 05/05/20 15:59 [facility] (Rec: 05/05/20 16:08 [facility] [id number]) Rehab OT IP Assessment Subjective History Pt oriented x 4 on arrival. Pt agreeable to engage in therapy evaluation. Pt was admitted via ED on 05/03/20 due to cellulitis of L leg. Pt was seen privously for inpatient OT. Upon discharge he was sent to [facility] for short term rehab and stayed ~11 days. He returned home with home health after his stay. After returning home it appears from documentation he was not persistent with participation during home health. Now, his leg has become worse. Pt reports he was independent with ADLs and IaDLs. He does use a rolling walker during ambulation. Subjective I want to go back home. Objective Patient Orientation Person,Place,Birthday Upper Extremity Gross ROM WFL Bed Mobility bed mobility-scooting,bed mobility - supine/sit,bed mobility - rolling Assist Level Supervision/Stand by Transfer Training Sit/Stand Transfer Assist Level Contact Guard/Hand Hold Rehab OT IP prob,goals,plan Problems Date of Evaluation: 05/05/20 OT IP Problems Bed Mobility,Transfers,Gait, Balance,Self care,Safety Rehab Potential Rehab Potential Good Equipment Needs Assistive Devices Rolling / Wheeled Walker Plan OT intervention Plan Bed Mobility,Transfers,Gait, Balance,Self care,Safety, Therapeutic Exercise OT Plan Frequency Daily Duration LOS Discharge Goals Bed Mobility Ability Standby Assistance Sit to Stand Chair Transfer Ability Supervision/Stand by Chair Transfer Ability Supervision/Stand by Chair Transfer Technique Sit to/from Ambulatory Chair Transfer Assistive Devices Rolling Walker Self care skills fully toilet trained,uses utensils to feed self Feeding Ability
--- NOTE | 2020-05-05 18:22 | PC.NURSE ---
PT AMBULATED TO RR WITH PT/OT PER ORDERS EARLIER TODAY TOLERATED WELL, CURRENTLY IN CHAIR, DSG IN PLACE COVERED WITH LIZZIE WRAP, C/D/I, DSG CHANGED TODAY PER MD, NO REINFORCEMENT NEEDED AT THIS TIME, PT HAS BEEN MEDICATED PER MAR AT REGULAR INTERVALS, EFFECTIVENESS NOTED, PT IN CONTACT PRECAUTIONS R/T POSITIVE CRE SWAB, NO NEEDS AT THIS TIME, WILL CONTINUE TO MONITOR
[2020-05-05 20:00] VITALS: BP 137/78; PULSE 74; RESP 18; TEMP 36.6; O2SAT 99
--- NOTE | 2020-05-06 01:34 | PC.NURSE ---
Report given to Val Mcgrath RN
[2020-05-06 04:00] VITALS: BP 139/83; PULSE 69; RESP 18; TEMP 36.7; O2SAT 99; BMI 40.0
[2020-05-06 06:19] LABS: Basophils % 0.2 % (0.1-2.0); Eosinophils # 0.1 K/mm3 (0.0-0.4); Eosinophils % 0.8 % (0.1-12.0); Hematocrit 30.3 % (42.0-52.0); Hemoglobin 9.8 g/dL (14.1-18.0); Lymphocytes % 13.1 % (10-50); Mean Corpuscular HGB Conc 32.2 g/dL (31.8-35.4); Mean Corpuscular Hemoglobin 31.2 pg (27.0-31.2); Mean Corpuscular Volume 96.9 fl (80-94); Mean Platelet Volume 8.7 fl (7.4-10.4); Monocytes # 0.4 K/mm3 (0.1-1.0); Monocytes % 4.8 % (1.7-9.3); Neutrophils # 6.1 K/mm3 (1.8-7.8); Neutrophils % 81.1 % (37.0-80.0); Platelet Count 142 K/mm3 (142-424); Red Blood Count 3.13 M/mm3 (4.60-6.20); Red Cell Distribution Width 15.7 % (11.5-17.5); White Blood Count 7.5 K/mm3 (4.8-10.8)
[2020-05-06 06:21] LABS: Chloride 107 mmol/L (98-107)
[2020-05-06 06:22] LABS: Potassium 3.8 mmoL/L (3.5-5.1); Sodium 136 mmol/L (136-145)
[2020-05-06 06:24] LABS: Alanine Aminotransferase 22 U/L (12-78); Aspartate Amino Transferase 29 U/L (17-59); Blood Urea Nitrogen 14 mg/dl (9-20); Creatinine Clearance Estimated 264 mL/min (50-200); Estimated Glomerular Filt Rate 144 ml/min (>60); GFR (African American) 175 ML/MIN (>60)
[2020-05-06 06:25] LABS: Albumin Level 2.4 g/dl (3.5-5.0); Albumin/Globulin Ratio 0.7 (1.1-1.8); Alkaline Phosphatase 159 U/L (38-126); Anion Gap 6.8 mEq/L (5-15); Bilirubin,Total 0.7 mg/dl (0.2-1.3); Calcium 7.9 mg/dl (8.4-10.2); Carbon Dioxide 26 mmol/L (22.0-30.0); Globulin 3.5 g/dL (1.3-3.2); Glucose 123 mg/dl (74-100); Total Protein,Serum 5.9 g/dl (6.3-8.2)
--- NOTE | 2020-05-06 07:01 | PC.NURSE ---
shift summary, no acute changes this shift, no complaints of SOA, N/V/D, rang out one time for pain, treated per MAR
[2020-05-06 08:00] VITALS: BP 155/73; PULSE 74; RESP 18; TEMP 36.6; O2SAT 100
--- NOTE | 2020-05-06 10:43 | HMH.ORTHPN ---
Subjective Date: 05/06/20 <Genie Humphreys - 05/06/20 10:48> Time: 08:00 <Genie Humphreys - 05/06/20 10:48> Principal diagnosis: B/L LE cellulitis, wounds <Genie Humphreys - 05/06/20 10:48> Interval history: Patient is resting comfortably at the bedside this morning he just finished eating breakfast. He still reports pain to bilateral lower extremity. He hopes to be going home today. He shows no signs of pain at this time prior to dressing change. Patient denies nausea/vomiting, fever/chills, shortness of breath/chest pain. <Genie Humphreys - 05/06/20 13:15> PN: Obj Ex Vital signs: Temp Pulse Resp BP Pulse Ox 97.8 F 74 18 155/73 H 100 05/06/20 08:00 05/06/20 08:00 05/06/20 08:00 05/06/20 08:00 05/06/20 08:00 <Amaya Karimi - 05/06/20 13:33> Temp Pulse Resp BP Pulse Ox 97.8 F 74 18 155/73 H 100 05/06/20 08:00 05/06/20 08:00 05/06/20 08:00 05/06/20 08:00 05/06/20 08:00 <Genie Humphreys - 05/06/20 10:48> - Constitutional no acute distress <Genie Humphreys - 05/06/20 13:15> - Routine HEENT Exam Head: Present: normocephalic <Genie Humphreys - 05/06/20 13:15> Eye: Present: PERRL <Genie Humphreys - 05/06/20 13:15> ENT: Present: mucous membranes moist <Genie Humphreys - 05/06/20 13:15> - Routine Neck Exam Present: full ROM, trachea midline <Genie Humphreys - 05/06/20 13:15> - Routine Chest/Breast/Axilla Exam Chest wall: Absent: tenderness <Genie Humphreys - 09/23/20 13:15> - Routine Respiratory Exam Absent: accessory muscle use, respiratory distress <Genie Humphreys 05/06/20 13:15> - Routine Cardiovascular Exam Present: RRR <Genie Humphreys 05/06/20 13:15> - Routine Abdominal Exam Present: soft, obese <Genie Humphreys 05/06/20 13:15> - Routine Extremities Exam Present: edema, pulses intact. Absent: calf tenderness <Genie Humphreys 05/06/20 13:15> - Routine Psychiatric Exam Present: normal affect, cooperative <Genie Humphreys 05/06/20 13:15> Progress Note: A&P (1) Abscess of left lower extremity Status: Acute Current Visit: Yes (2) Sepsis Status: Acute Current Visit: Yes (3) Venous stasis ulcers Status: Acute Current Visit: Yes (4) Abscess of right foot Status: Acute Current Visit: No (5) Bilateral lower extremity edema Status: Acute Current Visit: No (6) Bilateral lower leg cellulitis Status: Acute Current Visit: No (7) Right foot ulcer Status: Acute Current Visit: No <Genie Humphreys 05/06/20 13:06> (1) Abscess of left lower extremity Status: Acute Current Visit: Yes (2) Sepsis Status: Acute Current Visit: Yes (3) Venous stasis ulcers Status: Acute Current Visit: Yes (4) Abscess of right foot Status: Acute Current Visit: No (5) Bilateral lower extremity edema Status: Acute Current Visit: No (6) Bilateral lower leg cellulitis Status: Acute Current Visit: No (7) Right foot ulcer Status: Acute Current Visit: No <Amaya Karimi - 05/06/20 13:33> Assessment and Plan for All Diagnoses:: Physician Attestation: I have read the office note that was documented by the staff and/or WEAVER AXMINSTER and agree with the documentation. Plan and orders per Dr. Karimi. SNF evaluation: patient states he lives alone at [place], can not do his own dressing changes. He has a history of multiple admissions at multiple different facilities. Patient has shown over the last few months, he can not change or care for his wounds. The last few admissions he has been on IV antibiotics. 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 Intra-op specimens from 03/25/20: right foot tissue and bone culture: E. coli (Carbapenem Resistant Enterobacteriaceae), right foot MRSA. At the last admission discharge he was sent to [facility] x 2 weeks for
--- NOTE | 2020-05-06 10:49 | PC.NURSE ---
called Dr. Resendez's office and notifed Krys that pt's rectum swab is CRE positive. She reports that she will notify Dr. Resendez
--- NOTE | 2020-05-06 13:25 | HMH.ACPN2 ---
Internal Medicine - PN: Subj *Date: 05/05/20 *Time: 08:00 Interval history: doing better - will see if can do snf Exam Vital signs and Labs for Last 24 Hours: Temp Pulse Resp BP Pulse Ox 97.8 F 74 18 155/73 H 100 05/06/20 08:00 05/06/20 08:00 05/06/20 08:00 05/06/20 08:00 05/06/20 08:00 Laboratory Results - last 24 hr 05/06/20 05:50: WBC 7.5, RBC 3.13 L, Hgb 9.8 L, Hct 30.3 L, MCV 96.9 H, MCH 31.2, MCHC 32.2, RDW 15.7, Plt Count 142 D, MPV 8.7, Neut % (Auto) 81.1 H, Lymph % (Auto) 13.1, [place] % (Auto) 4.8, Eos % (Auto) 0.8, Baso % (Auto) 0.2, Neut # (Auto) 6.1, Lymph # (Auto) 1.0, [place] # (Auto) 0.4, Eos # (Auto) 0.1, Baso # (Auto) 0.0 05/06/20 05:50: Sodium 136, Potassium 3.8, Chloride 107, Carbon Dioxide 26, Anion Gap 6.8, BUN 14, Creatinine 0.60 L, Estimated Creat Clear 264, Estimated GFR 144, Est GFR ( Amer) 175, Glucose 123 H D, Calcium 7.9 L, Total Bilirubin 0.7, AST 29, ALT 22, Alkaline Phosphatase 159 H, Total Protein 5.9 L, Albumin 2.4 L D, Globulin 3.5 H, Albumin/Globulin Ratio 0.7 L I & O for Last 24 hours: Intake & Output 05/04/20 05/05/20 05/06/20 05/07/20 11:59 11:59 11:59 11:59 Intake Total 1110 / 1110 3200 / 3200 2821 / 2821 Output Total 600 / 600 1475 / 1475 2820 / 2820 Balance 510 / 510 1725 / 1725 Weight 263 lb 4 oz 272 lb 4 oz 270 lb 3.009 oz Microbiology Reports for the Last 24 Hours: Microbiology 05/04/20 00:35 Rectum CRE Surveillance Culture - Final 05/04/20 08:00 Leg,Left - Drainage Gram Stain - Final 05/04/20 08:00 Leg,Left - Drainage Wound Culture - Preliminary Gram Negative Rods 05/04/20 14:11 Foot,Left - Wound Gram Stain - Final 05/04/20 14:11 Foot,Left - Wound Wound Culture - Preliminary 05/04/20 08:00 Foot,Right - Drainage Gram Stain - Final 05/04/20 08:00 Foot,Right - Drainage Wound Culture - Preliminary Gram Negative Rods 05/04/20 14:11 Leg,Left - Left Surgical Biopsy Culture - Preliminary NO GROWTH AFTER 24 HOURS 05/04/20 14:11 Ankle,Left Surgical Biopsy Culture - Preliminary NO GROWTH AFTER 24 HOURS 05/03/20 15:50 Blood Blood Culture - Preliminary NO GROWTH AFTER 48 HOURS 05/03/20 15:50 Blood Blood Culture - Preliminary NO GROWTH AFTER 48 HOURS - Constitutional no acute distress - *Routine HEENT Exam Head: Present: normocephalic Eye: Present: EOMI, PERRL ENT: Present: mucous membranes dry - *Routine Neck Exam Absent: JVD - *Routine Respiratory Exam Present: CTA bilaterally - *Routine Cardiovascular Exam Present: RRR - *Routine Abdominal Exam Present: soft - *Routine Extremities Exam Comments: bilat dressing - *Routine Skin Exam Present: intact - *Routine Neurological Exam Present: alert, CN II-XII intact - Routine Psychiatric Exam Present: normal affect Assessment and Plan (1) Abscess of left lower extremity Current visit: Yes Status: Acute Category: Medical Code(s): L02.416 - Cutaneous abscess of left lower limb (2) Sepsis Current visit: Yes Status: Acute Qualifiers: Sepsis type: sepsis due to unspecified organism Sepsis acute organ dysfunction status: without acute organ dysfunction Qualified Code(s): A41.9 - Sepsis, unspecified organism Category: Medical Code(s): A41.9 - Sepsis, unspecified organism (3) Venous stasis ulcers Current visit: Yes Status: Acute Qualifiers: Venous stasis ulcer site: other part of lower leg Varicose vein presence: without varicose veins Laterality: left Non-pressure ulcer stage: with fat layer exposed Qualified Code(s): I87.2 - Venous insufficiency (chronic) (peripheral); L97.822 - Non-pressure chronic ulcer of other part of left lower leg with fat layer exposed Category: Medical Code(s): I83.009 - Varicose veins of unspe
--- NOTE | 2020-05-06 13:27 | HMH.DCSUM ---
General - General Admission date:: 05/03/20 Discharge date: 05/06/20 HPI HPI: 45 yr old male presents for having increased swelling and pain in left leg after seeing Dr Stanton on the Apr. Pt complains of left leg pain and swelling feeling fatigued for 3 to 4 days. Has been feeling feverish with fatigue. Pt states in ed did not take his temperature today, did not realize he had a fever today. He has a history of recent surgery on his right foot by Dr. Karimi on 03/25/2020. Review of records shows he had an incision and drainage. He says he has been on doxycycline since that surgery.He has had right leg ulcers on his anterior right lower leg since January 2019. He says he started with one ulcer and it has expanded to 3 ulcers. on last admission pt was sent to [facility] for rehab. Pt admitted for worsening of cellulitis and podiatry consult. Hospital Course Hospital Course: pt has did better with ivf and abx - he was seen by podiatry-toyin Obie is a 45-year-old man well-known to the podiatry service who was admitted yesterday 05/03/2020 for bilateral lower extremity cellulitis. At the time of admission he was febrile with a temperature of 102. Patient did have a full breakfast this morning around 7 AM. He complains of pain to both legs at the bedside. He is asking for oxycodone 10mg and IV pain medications. Patient did have home health care arranged but states he refused to let them put the wound VAC on because it hurt too much . He states the dressing was last changed last week unsure of what day. He did see his PCP Dr. Stanton last 04/28/2020. Patient states he does have doxycycline but has not been taking twice daily as directed. Of note patient has also no showed his last 2 podiatry appointments and was last seen 04/13/2020. Assessment and Plan (1) Abscess of left lower extremity Current visit: Yes Status: Acute Category: Medical Code(s): L02.416 - Cutaneous abscess of left lower limb (2) Sepsis Current visit: Yes Status: Acute Qualifiers: Sepsis type: sepsis due to unspecified organism Sepsis acute organ dysfunction status: without acute organ dysfunction Qualified Code(s): A41.9 - Sepsis, unspecified organism Category: Medical Code(s): A41.9 - Sepsis, unspecified organism (3) Venous stasis ulcers Current visit: Yes Status: Acute Qualifiers: Venous stasis ulcer site: other part of lower leg Varicose vein presence: without varicose veins Laterality: left Non-pressure ulcer stage: with fat layer exposed Qualified Code(s): I87.2 - Venous insufficiency (chronic) (peripheral); L97.822 - Non-pressure chronic ulcer of other part of left lower leg with fat layer exposed Category: Medical Code(s): I83.009 - Varicose veins of unspecified lower extremity with ulcer of unspecified site; L97.909 - Non-pressure chronic ulcer of unspecified part of unspecified lower leg with unspecified severity (4) Abscess of right foot Current visit: No Status: Acute Category: Medical Code(s): L02.611 - Cutaneous abscess of right foot (5) Bilateral lower extremity edema Current visit: No Status: Acute Category: Medical Code(s): R60.0 - Localized edema (6) Bilateral lower leg cellulitis Current visit: No Status: Acute Category: Medical Code(s): L03.116 - Cellulitis of left lower limb; L03.115 - Cellulitis of right lower limb x, 03/25/20: S/p right foot incision and drainage, deep multiple compartment wound debridement, percutaneous bone biospy, leg ulcer debridement, leg ulcer debridement x2, nail debridement x10, surgical clips removal *03/05/20: S/p right foot abscess incision and drainage, wound debridement, delayed primary closure and s/p left leg ulcer wound debridement x2 POD #5w, 5d Right foot wound culture, 03/05/20: Serratia marcescens, Aeromonas hydrophila (CRE) Labs 03/05/20: wbc 4.8, esr 81, crp 53.6 Labs 03/06/20: wbc 7.2, esr 61, crp 37.8, glucose 124, Hac1 4.3% Intra-
--- NOTE | 2020-05-06 13:54 | HMH.PHACONS ---
- Pharmacy Consult Date: 05/06/20 Time: 13:55 Referring provider: DR. ROPER Reason for Consult:: VANCOMYCIN TROUGH LEVEL Allergies and ADEs:: Allergies Allergy/AdvReac Type Severity Reaction Status Date / Time codeine Allergy Severe Anaphylaxis Verified 05/03/20 21:31 guaifenesin [From Mucinex] Allergy Severe SWELLS Verified 05/03/20 21:31 ketorolac [From Toradol] Allergy Severe Difficulty Verified 05/03/20 21:31 Swallowing Home Medications:: Home Medications Medication Instructions Recorded Confirmed Type Metoprolol Succinate [Metoprolol 50 mg PO DAILY 30 Days #30 tab 03/31/20 05/03/20 Rx Succinate 50mg Tablet*] cholecalciferol (vitamin D3) 1,250 1,250 mcg PO WEEKLY 04/14/20 05/04/20 History mcg (50,000 unit) capsule levothyroxine 25 mcg tablet 25 mcg PO DAILY 04/14/20 05/03/20 History Lisinopril/Hydrochlorothiazide 1 each PO DAILY 05/03/20 05/04/20 History [Zestoretic 10/12.5mg tablet] Albuterol Sulfate [Albuterol 1 puff IH Q6HP PRN 05/04/20 05/04/20 History 0.083% 2.5mg/3mL neb] Collagenase Clostridium Hist. 1 applic TOPICAL DAILY 05/04/20 05/04/20 History [Santyl] Fluticasone/Umeclidin/Vilanter 1 puff IH DAILY 05/04/20 05/04/20 History [Trelegy Ellipta 100-62.5-25] Gabapentin [Gabapentin 100mg Cap] 100 mg PO BID 05/04/20 05/04/20 History Oxycodone HCl 10 mg PO Q6HP PRN 05/04/20 05/04/20 History levoFLOXacin [Levaquin 750mg 750 mg PO 1100 #10 tab 05/06/20 Rx tablet] Height: 1.75 m Weight: 122.555 kg Laboratory Results:: Laboratory Results - last 24 hr 05/06/20 05:50: WBC 7.5, RBC 3.13 L, Hgb 9.8 L, Hct 30.3 L, MCV 96.9 H, MCH 31.2, MCHC 32.2, RDW 15.7, Plt Count 142 D, MPV 8.7, Neut % (Auto) 81.1 H, Lymph % (Auto) 13.1, [place] % (Auto) 4.8, Eos % (Auto) 0.8, Baso % (Auto) 0.2, Neut # (Auto) 6.1, Lymph # (Auto) 1.0, [place] # (Auto) 0.4, Eos # (Auto) 0.1, Baso # (Auto) 0.0 05/06/20 05:50: Sodium 136, Potassium 3.8, Chloride 107, Carbon Dioxide 26, Anion Gap 6.8, BUN 14, Creatinine 0.60 L, Estimated Creat Clear 264, Estimated GFR 144, Est GFR ( Amer) 175, Glucose 123 H D, Calcium 7.9 L, Total Bilirubin 0.7, AST 29, ALT 22, Alkaline Phosphatase 159 H, Total Protein 5.9 L, Albumin 2.4 L D, Globulin 3.5 H, Albumin/Globulin Ratio 0.7 L 05/06/20 12:30: Vancomycin Trough 24.0 H Medical History: Reports:: Chronic Obstructive Pulmonary Disease (COPD), Hypertension, MRSA Denies:: Cancer, Diabetes Mellitus Type 1, Diabetes Mellitus Type 2, Seizures Assessment and Plan (1) Abscess of left lower extremity Current visit: Yes Status: Acute Category: Medical Code(s): L02.416 - Cutaneous abscess of left lower limb (2) Sepsis Current visit: Yes Status: Acute Qualifiers: Sepsis type: sepsis due to unspecified organism Sepsis acute organ dysfunction status: without acute organ dysfunction Qualified Code(s): A41.9 - Sepsis, unspecified organism Category: Medical Code(s): A41.9 - Sepsis, unspecified organism (3) Venous stasis ulcers Current visit: Yes Status: Acute Qualifiers: Venous stasis ulcer site: other part of lower leg Varicose vein presence: without varicose veins Laterality: left Non-pressure ulcer stage: with fat layer exposed Qualified Code(s): I87.2 - Venous insufficiency (chronic) (peripheral); L97.822 - Non-pressure chronic ulcer of other part of left lower leg with fat layer exposed Category: Medical Code(s): I83.009 - Varicose veins of unspecified lower extremity with ulcer of unspecified site; L97.909 - Non-pressure chronic ulcer of unspecified part of unspecified lower leg with unspecified severity (4) Abscess of right foot Current visit: No Status: Acute Category: Medical Code(s): L02.611 - Cutaneous abscess of right foot (5) Bilateral lower extremity edema Current visit: No Status: Acute Category: Medical Code(s): R60.0 - Localized edema (6) Bilateral lower leg cellulitis Current visit: No Status
--- NOTE | 2020-05-06 16:32 | PC.NURSE ---
spoke with Dr Resendez at this time. the only medication that the pt is to receive at this time is the levaquin. pt should have all other meds at home.
== END 2020-05-06 15:24 | disposition home or self-care (01) | DRG 571 ==
LOC: ER 16:58 → 2ND 17:15
PROVIDERS: Nurse Practitioner Family; Podiatrist; Admitting Provider Internal Medicine Adolescent Medicine; Emergency Provider Emergency Medicine; PCP Emergency Medicine; Visit Provider Emergency Medicine
PROC: 0JBQ0ZZ Excision of Right Foot Subcutaneous Tissue and Fascia, Open Approach (ICD-10-PCS; principal; 2020-05-04 13:00)
DX: L97.515 Non-pressure chronic ulcer of other part of right foot with muscle involvement without evidence of necrosis (principal); L02.416 Cutaneous abscess of left lower limb; L03.115 Cellulitis of right lower limb; L03.116 Cellulitis of left lower limb; L02.415 Cutaneous abscess of right lower limb; L97.525 Non-pressure chronic ulcer of other part of left foot with muscle involvement without evidence of necrosis; L97.326 Non-pressure chronic ulcer of left ankle with bone involvement without evidence of necrosis; B96.5 Pseudomonas (aeruginosa) (mallei) (pseudomallei) as the cause of diseases classified elsewhere; B95.2 Enterococcus as the cause of diseases classified elsewhere; B96.89 Other specified bacterial agents as the cause of diseases classified elsewhere; I83.023 Varicose veins of left lower extremity with ulcer of ankle; Z79.52 Long term (current) use of systemic steroids; Z79.899 Other long term (current) drug therapy
CPT/HCPCS: 11042; 11045 ×2; 20245; 11719; 36415; 71045; 73610; 73630; 80053; 80202; 83036; 83605; 84443; 85007; 85025; 85651; 86140; 86328; 87040; 87070; 87075; 87077; 87081; 87186; 87205; 88307; 88311; 93005; 96365; 96367; 96375; 97162; 97165; 97530; 99284; J0131; J2405; J2543; J3370

== ENCOUNTER → 2020-06-08 15:21 | Outpatient (CLI) | payer MEDICARE, MEDICAID, SELFPAY | PROVIDERS: Visit Provider Family Medicine | DX: A49.8 Other bacterial infections of unspecified site (principal); Z16.24 Resistance to multiple antibiotics; L02.611 Cutaneous abscess of right foot | CPT/HCPCS: 87070; 87077; 87186; 87205 ==

== ENCOUNTER 2020-06-11 14:29 | Emergency (ER) | payer MEDICARE, MEDICAID, SELFPAY ==
[2020-06-11 14:31] VITALS: BP 151/92; PULSE 101; RESP 16; TEMP 36.8; O2SAT 98; BMI 34.0
--- NOTE | 2020-06-11 14:52 | HMH.EDGENADL ---
ED Disposition Referrals: Carlos Stanton MD [Primary Care Provider] - Attestation: On , the high probability of a clinically significant, sudden or life threatening deterioration of the following system(s) required my full and direct attention, intervention and personal management. The time I documented below is in addition to time spent performing reported procedures but includes the following listed in this critical care notation. Medical Decision Making Vital Signs: 06/11/20 14:31 Temperature 98.2 F Temperature Source Oral Pulse Rate [Radial] 101 H Respiratory Rate 16 Blood Pressure [Right Arm] 151/92 H Blood Pressure Mean [Right Arm] 111 Blood Pressure Position [Right Arm] Sitting 02 Sat by Pulse Oximetry 98 Oxygen Delivery Method Room Air Orders (Tests/Meds): ORDERS Category Date Time Status BMP [Basic Metabolic Panel] Stat Lab 06/11/20 14:52 Ordered Complete Blood Count Auto Diff Stat Lab 06/11/20 14:52 Ordered General Adult HPI - General Chief complaint: PAIN Stated complaint: blisters on R foot, pain Mode of Arrival: Ambulatory Limitations: No Limitations Description of Symptoms (Recalled from ER Triage Doc. by RN): TO ED PER [facility] WITH C/O PAIN, BLISTERS TO RT FOOT. PT WITH HX OF CHRONIC INFECTION FOLLOWS WITH DR JOINER BUT MISSED HIS LAST APPT. - Related Data Home Medications Medication Instructions Recorded Confirmed cholecalciferol (vitamin D3) 1,250 1,250 mcg PO WEEKLY 04/14/20 06/08/20 mcg (50,000 unit) capsule Albuterol Sulfate [Albuterol 1 puff IH Q6HP PRN 05/04/20 06/08/20 0.083% 2.5mg/3mL neb] Previous Rx's Medication Instructions Recorded levothyroxine 25 mcg tablet 25 mcg PO DAILY #90 tab 05/07/20 lisinopril 10 1 tab PO DAILY #90 tab 05/07/20 mg-hydrochlorothiazide 12.5 mg tablet metoprolol succinate 50 mg 50 mg PO DAILY #90 tab 05/07/20 tablet,extended release 24 hr diclofenac sodium 75 mg 75 mg PO BID #60 tab 05/15/20 tablet,delayed release mupirocin 2 % topical ointment 1 applic TOPICAL BID #22 g 05/19/20 tramadol 50 mg tablet 50 mg PO Q6H PRN 7 Days #30 tab 05/19/20 fluticasone fur. 100 mcg-umeclid 1 ea INHALATION DAILY #60 each 05/25/20 62.5 mcg-vilant 25 mcg inhalat.powder collagenase clostridium histo. 250 1 applic TOPICAL DAILY #90 g 06/02/20 unit/gram topical ointment gabapentin 300 mg capsule 300 mg PO TID PRN #45 cap 06/08/20 oxycodone 10 mg tablet 10 mg PO Q8H PRN #45 tab 06/08/20 cefdinir 300 mg capsule 300 mg PO BID #28 cap 06/11/20 Allergies Allergy/AdvReac Type Severity Reaction Status Date / Time codeine Allergy Severe Anaphylaxis Verified 06/08/20 09:19 guaifenesin [From Mucinex] Allergy Severe SWELLS Verified 06/08/20 09:19 ketorolac [From Toradol] Allergy Severe Difficulty Verified 06/08/20 09:19 Swallowing [facility] History - Hepatitis A Screen Drug use history?: No High risk sexual behaviors?: No History of sexually transmitted infection?: No Currently employed?: No Childcare worker?: No Do you have indoor plumbing?: Yes Do you have electricity?: Yes Attestation statement:: This patient has been screened for Hepatitis A risk factors. Medical History: Reports:: Chronic Obstructive Pulmonary Disease (COPD), Hypertension, MRSA Denies:: Cancer, Diabetes Mellitus Type 1, Diabetes Mellitus Type 2, Seizures Other Medical History: Reports: Arthritis, Liver Disease. Denies: Blood Transfusion Reaction Comment: obesity, cellulitis Laterality Cases: Bilateral: Tonsillectomy, Other Other Surgeries: Yes: Ureter Stent, Other Amputation: No Fractures: Yes Comment: Rt Elbow, Lt foot x2, Rt foot wound x6 - Social History Smoking Status: Current some day smoker Tobacco Type: cigarettes # Packs/Day (cigarettes): 0 Alcohol Intake: former Substance Use Type: opiates, painkillers, heroin, amphetamines, methamphetamine, other (Heroin) Occupational Status: disabled Housing: house Household Members: family Family
--- NOTE | 2020-06-11 14:58 | HMH.EDGENADL ---
ED Disposition Clinical Impression: Bilateral lower extremity edema Chronic pain Qualifiers: Chronic pain type: chronic pain syndrome Qualified Code(s): G89.4 - Chronic pain syndrome Venous stasis ulcers Qualifiers: Venous stasis ulcer site: unspecified site Varicose vein presence: without varicose veins Non-pressure ulcer stage: limited to breakdown of skin Qualified Code(s): I87.2 - Venous insufficiency (chronic) (peripheral); L97.901 - Non-pressure chronic ulcer of unspecified part of unspecified lower leg limited to breakdown of skin Disposition: Home, Self-Care Condition on Discharge: Good Instructions: DI for Chronic Pain -- Adult, DI for Edema Due to Venous Stasis Referrals: Carlos Stanton MD [Primary Care Provider] - 3 days Amaya Karimi DPM [Staff Physician] - 3 days - Critical Care Critical Care Time: No Attestation: On , the high probability of a clinically significant, sudden or life threatening deterioration of the following system(s) required my full and direct attention, intervention and personal management. The time I documented below is in addition to time spent performing reported procedures but includes the following listed in this critical care notation. Medical Decision Making - Medical Records Medical records reviewed: Yes: I reviewed the patient's medical records. - Joshua Inquiry Pt receiving controlled substance: No Vital Signs: 06/11/20 14:31 Temperature 98.2 F Temperature Source Oral Pulse Rate [Radial] 101 H Respiratory Rate 16 Blood Pressure [Right Arm] 151/92 H Blood Pressure Mean [Right Arm] 111 Blood Pressure Position [Right Arm] Sitting 02 Sat by Pulse Oximetry 98 Oxygen Delivery Method Room Air - Lab Data Lab results reviewed: Yes: I reviewed the patient's lab results. Lab Results 06/11/20 14:55: WBC 3.0 L, RBC 3.34 L, Hgb 10.3 L, Hct 31.0 L, MCV 92.9, MCH 30.9, MCHC 33.2, RDW 16.6, Plt Count 87 L, MPV 9.5, Neut % (Auto) 64.9, Lymph % (Auto) 23.1, [place] % (Auto) 6.7, Eos % (Auto) 5.0, Baso % (Auto) 0.3, Neut # (Auto) 2.0, Lymph # (Auto) 0.7, [place] # (Auto) 0.2, Eos # (Auto) 0.2, Baso # (Auto) 0.0 06/11/20 14:55: Sodium 138, Potassium 3.5, Chloride 107, Carbon Dioxide 26, Anion Gap 8.5, BUN 10, Creatinine 0.60 L, Estimated Creat Clear 225, Estimated GFR 144, Est GFR ( Amer) 175, Glucose 124 H, Calcium 8.4 Result diagrams: 06/11/20 14:55 06/11/20 14:55 Medical Decision Narrative: Patient with long-term swelling of bilateral lower extremities seeming to become worse with blisters on his foot. He has missed several appointments and does have a history of medication noncompliance and polysubstance abuse. He is afebrile here with no significant leukocytosis so I have low suspicion for acute infectious process. He does follow with podiatry and with primary care and can continue to follow with them. No need for acute admission at this time. His leg exam appears chronic, which he readily admits other than the blisters on his toes. These are not fluctuant and I have low suspicion for abscess at this time. General Adult HPI - General Chief complaint: PAIN Stated complaint: blisters on R foot, pain Time Seen by Provider: 06/11/20 14:58 Mode of Arrival: Ambulatory Limitations: No Limitations Description of Symptoms (Recalled from ER Triage Doc. by RN): TO ED PER [facility] CAR WITH C/O PAIN, BLISTERS TO RT FOOT. PT WITH HX OF CHRONIC INFECTION FOLLOWS WITH DR KARIMI BUT MISSED HIS LAST APPT. - History of Present Illness HPI narrative: This is a 45-year-old male with a past medical history significant for hypertension, polysubstance abuse, longstanding chronic ulcers of the bilateral lower extremities who presents to the emergency department for increasing pain bilateral lower extremities. He has had problems with pain for a long time given his polysubstance abuse and chronic lower extremity wounds, has recently been placed on gabapentin. He has been following with Dr. Arias
[2020-06-11 15:09] LABS: Basophils % 0.3 % (0.1-2.0); Eosinophils # 0.2 K/mm3 (0.0-0.4); Hemoglobin 10.3 g/dL (14.1-18.0); Lymphocytes # 0.7 K/mm3 (0.7-4.5); Lymphocytes % 23.1 % (10-50); Mean Corpuscular HGB Conc 33.2 g/dL (31.8-35.4); Mean Corpuscular Hemoglobin 30.9 pg (27.0-31.2); Mean Corpuscular Volume 92.9 fl (80-94); Mean Platelet Volume 9.5 fl (7.4-10.4); Monocytes # 0.2 K/mm3 (0.1-1.0); Monocytes % 6.7 % (1.7-9.3); Neutrophils % 64.9 % (37.0-80.0); Platelet Count 87 K/mm3 (142-424); Red Blood Count 3.34 M/mm3 (4.60-6.20); Red Cell Distribution Width 16.6 % (11.5-17.5)
[2020-06-11 15:14] LABS: Chloride 107 mmol/L (98-107); Potassium 3.5 mmoL/L (3.5-5.1); Sodium 138 mmol/L (136-145)
[2020-06-11 15:17] LABS: Anion Gap 8.5 mEq/L (5-15); Blood Urea Nitrogen 10 mg/dl (9-20); Carbon Dioxide 26 mmol/L (22.0-30.0); Creatinine Clearance Estimated 225 mL/min (50-200); Estimated Glomerular Filt Rate 144 ml/min (>60); GFR (African American) 175 ML/MIN (>60)
[2020-06-11 15:18] LABS: Calcium 8.4 mg/dl (8.4-10.2); Glucose 124 mg/dl (74-100)
[2020-06-11 15:46] VITALS: BP 154/74; PULSE 74; RESP 16; TEMP 36.6; O2SAT 98
--- NOTE | 2020-06-11 15:48 | PC.NURSE ---
MATI LOWER EXTREMITIES WITH DSDING APPLIED
== END 2020-06-11 15:47 | disposition home or self-care (01) ==
PROVIDERS: Emergency Provider Emergency Medicine; PCP Family Medicine
DX: L97.901 Non-pressure chronic ulcer of unspecified part of unspecified lower leg limited to breakdown of skin (principal); I87.2 Venous insufficiency (chronic) (peripheral); G89.4 Chronic pain syndrome; I10 Essential (primary) hypertension; J44.9 Chronic obstructive pulmonary disease, unspecified; F17.210 Nicotine dependence, cigarettes, uncomplicated
CPT/HCPCS: 80048; 85025; 99282

== ENCOUNTER → 2020-06-22 11:17 | Outpatient (POV) | payer MEDICARE, MEDICAID, SELFPAY ==
[2020-06-22 12:10] VITALS: BP 158/94; PULSE 97; RESP 20; TEMP 36.7; O2SAT 100; BMI 36.9
--- NOTE | 2020-06-22 12:37 | HMH.PMCON ---
Assessment and Plan (1) Chronic pain Status: Chronic Qualifiers: Chronic pain type: chronic pain syndrome Qualified Code(s): G89.4 - Chronic pain syndrome Category: Medical Code(s): G89.29 - Other chronic pain - Assessment and plan all Dx Assessment and Plan for all problems:: Patient at this time is not a candidate for any interventions due to his infection status. Patient was given information in regards to some of the options for him after his infection has resolved. Patient's been instructed to call the office if he would like to return. At this time he is on an appropriate dose of medication from his primary care physician. Dr. Beltran has reviewed this note and agrees with this plan of care. This note was dictated using voice recognition software and may contain errors or omissions HPI - Data of Consult Consult date: 06/22/20 Requesting Physician: Nini Gonzales APRN Primary Care Provider: Carlos Stanton MD - Consult Narrative Reason for consult: Bilateral leg pains History of present illness: Mr. Ragland is a 45 year old male who presents today for consultation in regard to his bilateral lower leg pain. Patient has open wounds he states that they just appeared 1 day. He has multiple strains of infection in. Patient is on 3 antibiotics at this time he has had multiple hospitalizations for antibiotic therapy. Patient is not diabetic. Patient is also had multiple debridements. He is currently on Percocet and gabapentin from his primary care physician. This is an appropriate dose at this time. Patient would like to discuss a nerve stimulator or pain pump. At this time he is not a candidate due to the current infection in his legs. Patient rates his pain today an 8 out of 10. CC: Nini Gonzales APRN [facility] History I have reviewed the patient's past medical history: Yes Medical History: Reports:: Chronic Obstructive Pulmonary Disease (COPD), Hypertension Denies:: Cancer, Diabetes Mellitus Type 1, Diabetes Mellitus Type 2, MRSA, Seizures *Have you ever received a pneumonia vaccine?: No *Have you received a flu vaccine this season?: No Other Medical History: Reports: Arthritis, Liver Disease. Denies: Blood Transfusion Reaction Laterality Cases: Bilateral: Tonsillectomy, Other Other Surgeries: Yes: Ureter Stent, Other Amputation: No Fractures: Yes - *Social History Smoking Status: Current some day smoker Tobacco Type: cigarettes # Packs/Day (cigarettes): 0 Alcohol Intake: never Substance Use Type: opiates, painkillers, heroin, amphetamines, methamphetamine, other *Occupational Status:: disabled Housing: house Household Members: family *Travel in the last 8 weeks: None Family Hx:: Asthma, Cancer, Hyperlipidemia, Hypertension, Alcoholism Review of Systems - Review of Systems ROS General: no recent weight change, no fever, no sleep disturbances Respiratory: no cough, no shortness of air, no recurring pulmonary infections Cardiovascular/Peripheral Vascular: No chest pain, No palpitations, no edema, no shortness of breath. Gastrointestinal: no new onset incontinence, normal bowel movements reported Genitourinary: no new onset incontinence Musculoskeletal: Bilateral leg pain Psychiatric: normal mood/ affect Neurological: [denies new onset weakness in extremities], [denies new onset balance issues] Meds Home Medications Medication Instructions Recorded Confirmed Type cholecalciferol (vitamin D3) 1,250 1,250 mcg PO WEEKLY 04/14/20 06/22/20 History mcg (50,000 unit) capsule Albuterol Sulfate [Albuterol 1 puff IH Q6HP PRN 05/04/20 06/22/20 History 0.083% 2.5mg/3mL neb] levothyroxine 25 mcg tablet 25 mcg PO DAILY #90 tab 05/07/20 06/22/20 Rx lisinopril 10 1 tab PO DAILY #90 tab 05/07/20 06/22/20 Rx mg-hydrochlorothiazide 12.5 mg tablet metoprolol succinate 50 mg 50 mg PO DAILY #90 tab 05/07/20 06/22/20 Rx tablet,extended release 24 hr diclofenac sod
== END ==
PROVIDERS: PCP Family Medicine; Visit Provider Clinical Nurse Specialist Family Health
DX: G89.4 Chronic pain syndrome (principal)
CPT/HCPCS: 99202

== ENCOUNTER → 2020-06-30 18:18 | Outpatient (CLI) | payer MEDICARE, MEDICAID, SELFPAY | PROVIDERS: Visit Provider Family Medicine | DX: R89.5 Abnormal microbiological findings in specimens from other organs, systems and tissues (principal) | CPT/HCPCS: 87070; 87077; 87186; 87205 ==

== ENCOUNTER → 2020-09-08 10:45 | Outpatient (CLI) | payer MEDICARE, OTHER, SELFPAY ==
[2020-09-08 11:40] LABS: Basophils % 0.6 % (0.1-2.0); Eosinophils # 0.2 K/mm3 (0.0-0.4); Eosinophils % 4.9 % (0.1-12.0); Hematocrit 36.8 % (42.0-52.0); Hemoglobin 12.2 g/dL (14.1-18.0); Lymphocytes # 1.3 K/mm3 (0.7-4.5); Mean Corpuscular HGB Conc 33.2 g/dL (31.8-35.4); Mean Corpuscular Hemoglobin 31.5 pg (27.0-31.2); Mean Corpuscular Volume 94.8 fl (80-94); Mean Platelet Volume 8.3 fl (7.4-10.4); Monocytes # 0.3 K/mm3 (0.1-1.0); Monocytes % 7.5 % (1.7-9.3); Neutrophils # 2.5 K/mm3 (1.8-7.8); Neutrophils % 56.9 % (37.0-80.0); Platelet Count 94 K/mm3 (142-424); Red Blood Count 3.88 M/mm3 (4.60-6.20); Red Cell Distribution Width 16.2 % (11.5-17.5); White Blood Count 4.3 K/mm3 (4.8-10.8)
[2020-09-08 12:38] LABS: Erythrocyte Sedimentation Rate 26 mm/hr (0-15)
[2020-09-08 12:40] LABS: Alanine Aminotransferase 43 U/L (12-78); Albumin Level 3.3 g/dl (3.5-5.0); Albumin/Globulin Ratio 0.8 (1.1-1.8); Alkaline Phosphatase 270 U/L (38-126); Anion Gap 8.8 mEq/L (5-15); Aspartate Amino Transferase 69 U/L (17-59); Bilirubin,Total 1.4 mg/dl (0.2-1.3); Blood Urea Nitrogen 16 mg/dl (9-20); Calcium 9.2 mg/dl (8.4-10.2); Carbon Dioxide 25 mmol/L (22.0-30.0); Chloride 109 mmol/L (98-107); Estimated Glomerular Filt Rate 121 ml/min (>60); GFR (African American) 146 ML/MIN (>60); Globulin 3.9 g/dL (1.3-3.2); Glucose 89 mg/dl (74-100); Potassium 3.8 mmoL/L (3.5-5.1); Sodium 139 mmol/L (136-145); Total Protein,Serum 7.2 g/dl (6.3-8.2)
[2020-09-08 12:50] LABS: C-Reactive Protein 2.6 mg/L (0-4)
== END ==
PROVIDERS: Visit Provider Podiatrist
DX: L97.513 Non-pressure chronic ulcer of other part of right foot with necrosis of muscle (principal); L97.922 Non-pressure chronic ulcer of unspecified part of left lower leg with fat layer exposed
CPT/HCPCS: 36415; 80053; 85025; 85651; 86140

== ENCOUNTER → 2020-09-22 17:21 | Outpatient (CLI) | payer MEDICARE, OTHER, SELFPAY | PROVIDERS: Visit Provider Podiatrist | DX: L97.929 Non-pressure chronic ulcer of unspecified part of left lower leg with unspecified severity (principal) | CPT/HCPCS: 87070; 87077; 87186; 87205 ==

== ENCOUNTER → 2020-10-12 16:53 | Outpatient (CLI) | payer MEDICARE, OTHER, SELFPAY | PROVIDERS: Visit Provider Podiatrist | DX: Z51.89 Encounter for other specified aftercare (principal); L97.925 Non-pressure chronic ulcer of unspecified part of left lower leg with muscle involvement without evidence of necrosis; L97.513 Non-pressure chronic ulcer of other part of right foot with necrosis of muscle; Z22.322 Carrier or suspected carrier of Methicillin resistant Staphylococcus aureus | CPT/HCPCS: 87070; 87077; 87186; 87205 ==

== ENCOUNTER 2020-10-16 17:35 | Inpatient (IN) | payer MEDICARE, OTHER, SELFPAY ==
[2020-10-16 17:36] VITALS: BP 162/95; PULSE 99; RESP 16; TEMP 36.5; O2SAT 98; BMI 39.9
--- NOTE | 2020-10-16 17:58 | HMH.EDGENADL ---
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 involvement without evidence of necrosis Cellulitis Qualifiers: Site of cellulitis: extremity Site of cellulitis of extremity: lower extremity Laterality: left Qualified Code(s): L03.116 - Cellulitis of left lower limb Disposition: Admitted As Inpatient Condition on Discharge: Fair Instructions: DI for Laceration Repair Referrals: PCP,No [Non-Staff] - - Critical Care Critical Care Time: No Attestation: On 10/16/20, the high probability of a clinically significant, sudden or life threatening deterioration of the following system(s) required my full and direct attention, intervention and personal management. The time I documented below is in addition to time spent performing reported procedures but includes the following listed in this critical care notation. Medical Decision Making - Medical Records Medical records reviewed: Yes: I reviewed the patient's medical records. - Joshua Inquiry Pt receiving controlled substance: Yes Joshua was queried for this patient: No Reason not queried -: Joshua login issues Risks and benefits of using a controlled substance: were discussed with pt by me Vital Signs: 10/16/20 17:36 10/16/20 18:39 Temperature 97.7 F Temperature Source Oral Pulse Rate [Radial] 99 H 87 Respiratory Rate 16 20 Blood Pressure [Right Arm] 162/95 H 147/81 H Blood Pressure Mean [Right Arm] 117 103 Blood Pressure Position [Right Arm] Sitting 02 Sat by Pulse Oximetry 98 100 Oxygen Delivery Method Room Air - Lab Data Lab Results 10/16/20 18:30: WBC 2.3 L, RBC 3.64 L, Hgb 11.4 L, Hct 34.8 L, MCV 95.4 H, MCH 31.3 H, MCHC 32.9, RDW 15.4, Plt Count 67 L, MPV 8.6, Neut % (Auto) 47.1, Lymph % (Auto) 38.5, [place] % (Auto) 8.1, Eos % (Auto) 5.8, Baso % (Auto) 0.5, Neut # (Auto) 1.1 L, Lymph # (Auto) 0.9, [place] # (Auto) 0.2, Eos # (Auto) 0.1, Baso # (Auto) 0.0 10/16/20 18:30: Sodium 140, Potassium 3.6, Chloride 109 H, Carbon Dioxide 29, Anion Gap 5.6, BUN 9, Creatinine 0.60 L, Estimated Creat Clear 264, Estimated GFR 144, Est GFR ( Amer) 175, Glucose 75, Calcium 8.8, Total Bilirubin 1.5 H, AST 95 H, ALT 62, Alkaline Phosphatase 212 H, NT-Pro-B Natriuret Pep 79.9, Total Protein 6.8, Albumin 3.1 L, Globulin 3.7 H, Albumin/Globulin Ratio 0.8 L 10/16/20 18:30: Lactate 2.3 H 10/16/20 18:50: PT 13.0 H, INR 1.11 H, APTT 24.7 10/16/20 18:50: ESR 24 H Result diagrams: 10/16/20 18:30 10/16/20 18:30 Orders (Tests/Meds): ED MEDICATIONS Generic Name Dose Route Start Last Admin Trade Name Freq PRN Reason Stop Dose Admin Vancomycin HCl 1,000 mg/ 250 mls @ 125 mls/hr 10/16/20 19:15 10/16/20 19:24 Sodium Chloride IV 10/30/20 19:14 125 mls/hr Q24H CJ Administration Protocol Discontinued Medications Generic Name Dose Route Start Last Admin Trade Name Freq PRN Reason Stop Dose Admin Morphine Sulfate 4 mg 10/16/20 17:45 10/16/20 18:02 Morphine 4mg/Ml Syringe IV 10/16/20 17:46 4 mg ONCE ONE Administration Ondansetron HCl 4 mg 10/16/20 17:45 10/16/20 18:02 Ondansetron 4mg/2ml Vial IV 10/16/20 17:46 4 mg ONCE ONE Administration ORDERS Category Date Time Status XR foot RT min 3V Stat Exams 10/16/20 19:14 Ordered XR tibia fibula LT 2V Stat Exams 10/16/20 19:14 Ordered Full Resp Panel w/COVID ([facility]) Routine Lab 10/16/20 18:30 Received Blood Culture Stat Micro 10/16/20 18:30 Received - Radiology Data #1 Image(s): Tib/Fib, Foot/Toes Image Reviewed: Yes I reviewed the patient's radiology results, Yes I reviewed the patient's radiology image Chronic changes, metallic foreign body in the right distal foot. - Reevaluation(s) Time: 19:32 Reev
[2020-10-16 18:39] VITALS: BP 147/81; PULSE 87; RESP 20; O2SAT 100
[2020-10-16 18:41] LABS: Basophils % 0.5 % (0.1-2.0); Eosinophils # 0.1 K/mm3 (0.0-0.4); Eosinophils % 5.8 % (0.1-12.0); Hematocrit 34.8 % (42.0-52.0); Hemoglobin 11.4 g/dL (14.1-18.0); Lymphocytes # 0.9 K/mm3 (0.7-4.5); Lymphocytes % 38.5 % (10-50); Mean Corpuscular HGB Conc 32.9 g/dL (31.8-35.4); Mean Corpuscular Hemoglobin 31.3 pg (27.0-31.2); Mean Corpuscular Volume 95.4 fl (80-94); Mean Platelet Volume 8.6 fl (7.4-10.4); Monocytes # 0.2 K/mm3 (0.1-1.0); Monocytes % 8.1 % (1.7-9.3); Neutrophils # 1.1 K/mm3 (1.8-7.8); Neutrophils % 47.1 % (37.0-80.0); Platelet Count 67 K/mm3 (142-424); Red Blood Count 3.64 M/mm3 (4.60-6.20); Red Cell Distribution Width 15.4 % (11.5-17.5); White Blood Count 2.3 K/mm3 (4.8-10.8)
[2020-10-16 18:45] LABS: Adenovirus,PCR Not Detected (NotDetected); Bordetella Pertussis Not Detected (NotDetected); Chlamydophila Pneumoniae, PCR Not Detected (NotDetected); Coronavirus 19, PCR Not Detected (NotDetected); Coronavirus 229E Not Detected (NotDetected); Coronavirus NL63 Not Detected (NotDetected); Coronavirus OC43 Not Detected (NotDetected); Coronovirus HKU1,PCR Not Detected (NotDetected); Human Metapneumovirus Not Detected (NotDetected); Influenza A, PCR Not Detected (NotDetected); Influenza AH1, 2009 Not Detected (NotDetected); Influenza AH1, PCR Not Detected (NotDetected); Influenza AH3,PCR Not Detected (NotDetected); Influenza B, PCR Not Detected (NotDetected); Mycoplasma Pneumoniae, PCR Not Detected (NotDetected); Parainfluenza 1, PCR Not Detected (NotDetected); Parainfluenza 2, PCR Not Detected (NotDetected); Parainfluenza 3, PCR Not Detected (NotDetected); Parainfluenza 4, PCR Not Detected (NotDetected); Respiratory Syncytial Virus Not Detected (NotDetected); Rhinovirus/Enterovirus Not Detected (NotDetected)
--- NOTE | 2020-10-16 18:47 | PC.NURSE ---
LAB AT BEDSIDE PT DIFFICULT IV STICK
[2020-10-16 18:55] LABS: Chloride 109 mmol/L (98-107); Sodium 140 mmol/L (136-145)
[2020-10-16 18:56] LABS: Potassium 3.6 mmoL/L (3.5-5.1)
[2020-10-16 18:58] LABS: Alanine Aminotransferase 62 U/L (12-78); Albumin Level 3.1 g/dl (3.5-5.0); Albumin/Globulin Ratio 0.8 (1.1-1.8); Alkaline Phosphatase 212 U/L (38-126); Anion Gap 5.6 mEq/L (5-15); Aspartate Amino Transferase 95 U/L (17-59); Bilirubin,Total 1.5 mg/dl (0.2-1.3); Blood Urea Nitrogen 9 mg/dl (9-20); Carbon Dioxide 29 mmol/L (22.0-30.0); Creatinine Clearance Estimated 264 mL/min (50-200); Estimated Glomerular Filt Rate 144 ml/min (>60); GFR (African American) 175 ML/MIN (>60); Globulin 3.7 g/dL (1.3-3.2); Total Protein,Serum 6.8 g/dl (6.3-8.2)
[2020-10-16 18:59] LABS: Calcium 8.8 mg/dl (8.4-10.2); Glucose 75 mg/dl (74-100)
[2020-10-16 19:05] LABS: Lactic Acid 2.3 mmol/L (0.7-2.1)
[2020-10-16 19:08] LABS: NT Pro Brain Natriuretic Pep. 79.9 pg/mL (0-125)
--- NOTE | 2020-10-16 19:14 | XR_ITS ---
PROCEDURE: XR FOOT RT MIN 3V CLINICAL INDICATION: pain COMPARISON: CR XR FOOT RT MIN 3V from 03/12/2020 CR XR FOOT RT MIN 3V from 03/24/2020 CR XR FOOT LT MIN 3V from 05/04/2020 CR XR FOOT RT MIN 3V from 05/04/2020 FINDINGS: No fracture or dislocation. No lytic or blastic change. There is normal mineralization. The joint spaces are well-preserved. No significant degenerative/arthritic changes. No erosive changes evident. Other findings:There is a small metallic linear density between the proximal phalanges of the 2nd and 3rd digits. No bony erosive process. Lucency is noted along the dorsal aspect of the foot at the metatarsophalangeal junction consistent with and ulceration. IMPRESSION: Metallic foreign body between the 2nd and 3rd toes with a soft tissue defect dorsally at the metatarsophalangeal junction Dictated by: Jonnathan Meredith MD 10/16/2020 20:24 Jonnathan Meredith MD in [place] 10/16/2020 20:24
--- NOTE | 2020-10-16 19:14 | XR_ITS ---
PROCEDURE: XR TIBIA FIBULA LT 2V CLINICAL INDICATION: pain Infection COMPARISON: No exams were available for comparison FINDINGS: No fracture or dislocation. No lytic or blastic change. There is normal mineralization. The joint spaces are well-preserved. No significant degenerative/arthritic changes. No erosive changes evident. Other findings:There is mild generalized soft tissue swelling. No soft tissue gas or radiopaque foreign IMPRESSION: Soft tissue swelling otherwise negative Dictated by: Jonnathan Meredith MD 10/16/2020 20:22 Jonnathan Meredith MD in [place] 10/16/2020 20:22
[2020-10-16 19:17] LABS: Activated Partial Thrombo Time 24.7 seconds (23.6-34.0); INR 1.11 (0.9-1.1)
[2020-10-16 19:21] LABS: Erythrocyte Sedimentation Rate 24 mm/hr (0-15)
[2020-10-16 21:23] VITALS: BP 144/82; PULSE 82; RESP 18; TEMP 36.5; O2SAT 99
--- NOTE | 2020-10-16 21:29 | PC.NURSE ---
patient up to floor via stretcher.
[2020-10-16 22:00] VITALS: BP 160/102; PULSE 96; RESP 17; TEMP 36.9; O2SAT 99; BMI 39.9
[2020-10-16 22:23] LABS: Reflex Lactic Add Lactic Reflex
[2020-10-16 22:52] LABS: Lactic Acid Follow Up (RFLX 1) 1.7 mmol/L (0.7-2.1)
[2020-10-17] VITALS (7 sets, daily range): BP systolic 136–174; BP diastolic 60–100; PULSE 87–103; RESP 16–19; TEMP 36.6–37.1; O2SAT 94–100; BMI 39.9
--- NOTE | 2020-10-17 01:17 | PC.WOUNDNOTE ---
Wound Location: Left leg Length:8 cm Width: 2 cm Depth: Undermining Y/N: Tunneling cm: Granulation %: Slough/necrotic tissue %: Inflammation/swelling Y/N: y Pain and/or tenderness Y/N: y Exudate: Serosanguinous y Sanguinous Serosanguinous Seropurulent Purulent Color: Clear y Mihaela Cloudy/milky [place] Red y Green Yellow y Brown [place] Blue Consistency: Thick Thin y Amount: None Scant y Small Moderate Large Odor Y/N:
--- NOTE | 2020-10-17 01:19 | PC.WOUNDNOTE ---
Wound Location: Length: Width: Depth: Undermining Y/N: Tunneling cm: Granulation %: Slough/necrotic tissue %: Inflammation/swelling Y/N: Pain and/or tenderness Y/N: Exudate: Serosanguinous Sanguinous Serosanguinous Seropurulent Purulent Color: Clear Mihaela Cloudy/milky [place] Red Green Yellow Brown [place] Blue Consistency: Thick Thin Amount: None Scant Small Moderate Large Odor Y/N:
--- NOTE | 2020-10-17 01:19 | PC.WOUNDNOTE ---
Wound Location: left leg Length: 2 cm Width: 1.5 cm Depth: Undermining Y/N: Tunneling cm: Granulation %: Slough/necrotic tissue %: Inflammation/swelling Y/N: y Pain and/or tenderness Y/N: y Exudate: Serosanguinous y Sanguinous Serosanguinous Seropurulent Purulent Color: Clear y Mihaela Cloudy/milky [place] Red y Green Yellow y Brown [place] Blue Consistency: Thick Thin y Amount: None Scant y Small Moderate Large Odor Y/N:
--- NOTE | 2020-10-17 01:20 | PC.WOUNDNOTE ---
Wound Location: right foot Length: 3 cm Width: 3 cm Depth: Undermining Y/N: Tunneling cm: Granulation %: Slough/necrotic tissue %: Inflammation/swelling Y/N: y Pain and/or tenderness Y/N: y Exudate: Serosanguinous y Sanguinous Serosanguinous Seropurulent Purulent Color: Clear y Mihaela Cloudy/milky [place] Red y Green Yellow y Brown [place] Blue Consistency: Thick Thin y Amount: None Scant y Small Moderate Large Odor Y/N:
--- NOTE | 2020-10-17 02:21 | HMH.HP ---
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 PT STATES HOME HEALTH COMES TO HOUSE AND CHANGES DRESSINGS APPROX 2 TIMES PER WEEK. STATES TODAY NURSE TOLD PT AREAS WERE GETTING WORSE AND SHOULD COME TO HOSPITAL FOR EVAL. PT C/O SWELLING, REDNESS, DRAINAGE AND INCREASING PAIN TO AREA 45-year-old male presenting to the emergency department with wounds on his legs. The patient has had these for quite some time. He has had multiple debridements. Patient has been seeing orthopedic surgery secondary to this. He states that the pain has been getting worse over the last few days. He states that the pain got so severe today that he came to the emergency department. He did have positive wound cultures a few days ago when he went to see his surgeon. He has also been having some discharge from the wounds on both of his legs. He states that he has been having home health care, however his bandages do not look like they have been changing quite some time. He denies any fevers or chills. He does not have any chest pain or shortness of breath. No abdominal pain or vomiting. No headache or change in vision. No focal weakness. pt was admitted for ivabx and treatment [facility] History I have reviewed the patient's past medical history: Yes Medical History: Reports:: Chronic Obstructive Pulmonary Disease (COPD), Hypertension Denies:: Cancer, Diabetes Mellitus Type 1, Diabetes Mellitus Type 2, MRSA, Seizures *Have you ever received a pneumonia vaccine?: No *Have you received a flu vaccine this season?: No Other Medical History: Reports: Arthritis, Liver Disease. Denies: Blood Transfusion Reaction Laterality Cases: Bilateral: Tonsillectomy, Other Other Surgeries: Yes: Ureter Stent, Other Amputation: No Fractures: Yes - *Social History Smoking Status: Former smoker Tobacco Type: cigarettes # Packs/Day (cigarettes): 0 Alcohol Intake: never Substance Use Type: heroin, amphetamines, opiates, painkillers, methamphetamine, prescription drug Last Used Substance: unknown *Occupational Status:: unemployed Housing: house Household Members: family *Travel in the last 8 weeks: None Family Hx:: Asthma, Cancer, Hyperlipidemia, Hypertension, Alcoholism Review of Systems - Review of Systems Review of systems:: pertinent systems reviewed and negative unless documented below - Constitutional Reports fatigue, Denies fever(s) - Eyes Denies change in vision - ENT Denies difficulty swallowing - *Cardiovascular Denies chest pain - *Respiratory Denies cough - *Gastrointestinal Denies abdominal pain - *Genitourinary Denies blood in urine - *Musculoskeletal Denies joint pain - Integumentary/Breasts Reports redness, Reports skin ulcer - *Neurologic Denies localized weakness, Denies headache(s) - Psychiatric Denies anxiety Meds Home Medications Medication Instructions Recorded Confirmed Type cholecalciferol (vitamin D3) 1,250 1,250 mcg PO WEEKLY 04/14/20 10/16/20 History mcg (50,000 unit) capsule Albuterol Sulfate [Albuterol 1 puff IH Q6HP PRN 05/04/20 10/16/20 History 0.083% 2.5mg/3mL neb] levothyroxine 25 mcg tablet 25 mcg PO DAILY #90 tab 05/07/20 10/16/20 Rx lisinopril 10 1 tab PO DAILY #90 tab 05/07/20 10/16/20 Rx mg-hydrochlorothiazide 12.5 mg tablet metoprolol succinate 50 mg 50 mg PO DAILY #90 tab 05/07/20 10/16/20 Rx tablet,extended release 24 hr fluticasone fur. 100 mcg-umeclid 1 each INHALATION DAILY #60 each 05/25/20 10/16/20 Rx 62.5 mcg-vilant 25 mcg inhalat.powder collagenase clostridium histo. 250 1 applic TOPICAL DAILY #90 g 09/08/20 10/16/20 Rx unit/gram topical ointment gentamicin 0.1 % topical cream 1 applic TOPICAL DAILY 30 Days #30 09/08/20 10/16/20 Rx g
--- NOTE | 2020-10-17 05:17 | PC.NURSE ---
pt is AxOx4, remains on room air with inspiratory and expiratory wheezes noted on auscultation, HR 87-100, no complaints of SOA or chest pain, has complained of pain in BLE 2X this shift and was treated per MAR
[2020-10-17 07:00] LABS: Basophils % 0.9 % (0.1-2.0); Eosinophils # 0.2 K/mm3 (0.0-0.4); Eosinophils % 8.6 % (0.1-12.0); Hematocrit 34.9 % (42.0-52.0); Hemoglobin 11.4 g/dL (14.1-18.0); Lymphocytes # 0.9 K/mm3 (0.7-4.5); Lymphocytes % 31.7 % (10-50); Mean Corpuscular HGB Conc 32.8 g/dL (31.8-35.4); Mean Corpuscular Hemoglobin 31.6 pg (27.0-31.2); Mean Corpuscular Volume 96.2 fl (80-94); Mean Platelet Volume 7.6 fl (7.4-10.4); Monocytes # 0.2 K/mm3 (0.1-1.0); Monocytes % 8.1 % (1.7-9.3); Neutrophils # 1.4 K/mm3 (1.8-7.8); Neutrophils % 50.7 % (37.0-80.0); Platelet Count 71 K/mm3 (142-424); Red Blood Count 3.62 M/mm3 (4.60-6.20); Red Cell Distribution Width 15.1 % (11.5-17.5); White Blood Count 2.7 K/mm3 (4.8-10.8)
[2020-10-17 07:01] LABS: Lactic Acid 0.8 mmol/L (0.7-2.1)
[2020-10-17 07:02] LABS: Alanine Aminotransferase 53 U/L (12-78); Albumin Level 2.7 g/dl (3.5-5.0); Albumin/Globulin Ratio 0.8 (1.1-1.8); Alkaline Phosphatase 192 U/L (38-126); Anion Gap 3.9 mEq/L (5-15); Aspartate Amino Transferase 83 U/L (17-59); Bilirubin,Total 1.5 mg/dl (0.2-1.3); Blood Urea Nitrogen 7 mg/dl (9-20); Calcium 8.1 mg/dl (8.4-10.2); Carbon Dioxide 28 mmol/L (22.0-30.0); Chloride 108 mmol/L (98-107); Creatinine Clearance Estimated 264 mL/min (50-200); Estimated Glomerular Filt Rate 144 ml/min (>60); GFR (African American) 175 ML/MIN (>60); Globulin 3.6 g/dL (1.3-3.2); Glucose 110 mg/dl (74-100); Potassium 3.9 mmoL/L (3.5-5.1); Sodium 136 mmol/L (136-145); Total Protein,Serum 6.3 g/dl (6.3-8.2)
--- NOTE | 2020-10-17 11:13 | HMH.PHACONS ---
- Pharmacy Consult Date: 10/17/20 Time: 11:13 Referring provider: DR. ROPER Reason for Consult:: VANCOMYCIN DOSING Allergies and ADEs:: Allergies Allergy/AdvReac Type Severity Reaction Status Date / Time codeine Allergy Severe Anaphylaxis Verified 10/16/20 21:47 guaifenesin [From Mucinex] Allergy Severe SWELLS Verified 10/16/20 21:47 ketorolac [From Toradol] Allergy Severe Difficulty Verified 10/16/20 21:47 Swallowing Home Medications:: Home Medications Medication Instructions Recorded Confirmed Type cholecalciferol (vitamin D3) 1,250 1,250 mcg PO WEEKLY 04/14/20 10/16/20 History mcg (50,000 unit) capsule Albuterol Sulfate [Albuterol 1 puff IH Q6HP PRN 05/04/20 10/16/20 History 0.083% 2.5mg/3mL neb] levothyroxine 25 mcg tablet 25 mcg PO DAILY #90 tab 05/07/20 10/16/20 Rx lisinopril 10 1 tab PO DAILY #90 tab 05/07/20 10/16/20 Rx mg-hydrochlorothiazide 12.5 mg tablet metoprolol succinate 50 mg 50 mg PO DAILY #90 tab 05/07/20 10/16/20 Rx tablet,extended release 24 hr fluticasone fur. 100 mcg-umeclid 1 each INHALATION DAILY #60 each 05/25/20 10/16/20 Rx 62.5 mcg-vilant 25 mcg inhalat.powder collagenase clostridium histo. 250 1 applic TOPICAL DAILY #90 g 09/08/20 10/16/20 Rx unit/gram topical ointment gentamicin 0.1 % topical cream 1 applic TOPICAL DAILY 30 Days #30 09/08/20 10/16/20 Rx g mupirocin 2 % topical ointment 1 applic TOPICAL BID 30 Days #22 g 09/08/20 10/16/20 Rx clobetasol 0.05 % topical cream 1 applic TOPICAL BID PRN 14 Days 09/22/20 10/16/20 Rx #30 g gabapentin 600 mg tablet 600 mg PO QID PRN #60 tab 09/22/20 10/16/20 Rx levofloxacin 750 mg tablet 750 mg PO DAILY 14 Days #14 tab 03/01/21 03/05/21 Rx minocycline 100 mg capsule 100 mg PO BID 14 Days #28 cap 10/12/20 10/16/20 Rx Height: 1.75 m Weight: 122.47 kg Laboratory Results:: Laboratory Results - last 24 hr 10/16/20 18:30: WBC 2.3 L, RBC 3.64 L, Hgb 11.4 L, Hct 34.8 L, MCV 95.4 H, MCH 31.3 H, MCHC 32.9, RDW 15.4, Plt Count 67 L, MPV 8.6, Neut % (Auto) 47.1, Lymph % (Auto) 38.5, [place] % (Auto) 8.1, Eos % (Auto) 5.8, Baso % (Auto) 0.5, Neut # (Auto) 1.1 L, Lymph # (Auto) 0.9, [place] # (Auto) 0.2, Eos # (Auto) 0.1, Baso # (Auto) 0.0 10/16/20 18:30: Sodium 140, Potassium 3.6, Chloride 109 H, Carbon Dioxide 29, Anion Gap 5.6, BUN 9, Creatinine 0.60 L, Estimated Creat Clear 264, Estimated GFR 144, Est GFR ( Amer) 175, Glucose 75, Calcium 8.8, Total Bilirubin 1.5 H, AST 95 H, ALT 62, Alkaline Phosphatase 212 H, NT-Pro-B Natriuret Pep 79.9, Total Protein 6.8, Albumin 3.1 L, Globulin 3.7 H, Albumin/Globulin Ratio 0.8 L 10/16/20 18:30: Lactate 2.3 H 10/16/20 18:30: Chlamy pneumoniae PCR Not detected, Adenovirus (PCR) Not detected, B. pertussis DNA (PCR) Not detected, Coronavirus OC43 (PCR) Not detected, Coronavirus HKU1 (PCR) Not detected, Coronavirus 229E (PCR) Not detected, SARS-CoV-2 (PCR) Not detected, Coronavirus NL63 (PCR) Not detected, Human Metapneumovir PCR Not detected, Influenza A (H1) PCR Not detected, Influ A (H1N1/09) PCR Not detected, Influenza A (H3) PCR Not detected, Influenza Type A (PCR) Not detected, Influenza Type B (PCR) Not detected, M. pneumoniae (PCR) Not detected, Parainfluenza 1 (PCR) Not detected, Parainfluenza 2 (PCR) Not detected, Parainfluenza 3 (PCR) Not detected, Parainfluenza 4 (PCR) Not detected, RSV (PCR) Not detected, Entero/Rhino (PCR) Not detected 10/16/20 18:50: PT 13.0 H, INR 1.11 H, APTT 24.7 10/16/20 18:50: ESR 24 H 10/16/20 22:37: Lactate 1.7 10/17/20 06:27: WBC 2.7 L, RBC 3.62 L, Hgb 11.4 L, Hct 34.9 L, MCV 96.2 H, MCH 31.6 H, MCHC 32.8, RDW 15.1, Plt Count 71 L, MPV 7.6, Neut % (Auto) 50.7, Lymph % (Auto) 31.7, [place] % (Auto) 8.1, Eos % (Auto) 8.6, Baso % (Auto) 0.9, Neut # (Auto) 1.4 L, Lymph # (Auto) 0.9, [place] # (Auto) 0.2, Eos # (Auto) 0.2, Baso # (Auto) 0.0 10/17/20 06:27: Sodium 136, Potassium 3.9, Chloride 108 H, Carbon Dioxide 28, Anion Gap 3.9 L, BUN 7 L, Creatinine 0.60 L, Est
--- NOTE | 2020-10-17 14:32 | HMH.PHAVTE ---
[facility] Pharmacy VTE Monitoring - Patient Demographics Admission date: 10/16/20 Report Date: 10/17/20 Time: 14:32 Allergies/Adverse Reactions: Patient Allergies codeine Allergy (Severe, Verified 10/16/20 21:47) Anaphylaxis guaifenesin [From Mucinex] Allergy (Severe, Verified 10/16/20 21:47) SWELLS ketorolac [From Toradol] Allergy (Severe, Verified 10/16/20 21:47) Difficulty Swallowing Height: 1.75 m Weight: 122.47 kg Patient Problems: Current Active Problems Hypothyroidism (acquired) (Acute) Severe sepsis with acute organ dysfunction (Acute) Cellulitis (Acute) Elevated C-reactive protein (CRP) (Acute) Bilateral lower extremity edema (Acute) Right foot ulcer (Acute) Abscess of right foot (Acute) Abscess of left lower extremity (Acute) Morbid obesity with body mass index (BMI) of 40.0 to 49.9 (Chronic) - VTE Risk Labs: VTE Related Lab Results Hgb 11.4 g/dL (14.1-18.0) L 10/17/20 06:27 Hct 34.9 % (42.0-52.0) L 10/17/20 06:27 Plt Count 71 K/mm3 (142-424) L 10/17/20 06:27 PT 13.0 seconds (9.4-11.8) H 10/16/20 18:50 INR 1.11 (0.9-1.1) H 10/16/20 18:50 APTT 24.7 seconds (23.6-34.0) 10/16/20 18:50 BUN 7 mg/dl (9-20) L 10/17/20 06:27 Creatinine 0.60 mg/dl (0.66-1.25) L 10/17/20 06:27 Estimated Creat Clear 264 mL/min (50-200) 10/17/20 06:27 VTE Score: 5 VTE Risk Level: Low Risk - Prophylaxis VTE Prophylaxis Ordered?: Yes Types of VTE Prophylaxis: Pharmacological Pharmacologic Type: Enoxaparin
--- NOTE | 2020-10-17 17:49 | PC.NURSE ---
Pt has slept majority of the day. Pt refused to get in chair this shift stating I thought about, but Im not going to . Pt has requested PRN morphine x2 this shift, w/ favorable results upon reassessment- pt resting w/ eyes closed. Ulcers on BLE had serosanguineous drainage at the beginning of shift but has since stopped upon reassessment. Ulcers have remained [employer]NAGER this shift. Pt has inspiratory and expiratory wheezing noted t/o all lung herron with audible wheezing heard as well at times. Pt continues to be on RA and is satting 94% and above. No other acute changes or complaints at this time.
--- NOTE | 2020-10-18 03:05 | PC.NURSE ---
Dressing applied to left valero & right top of foot near base of toes r/t purulent drainage using non-adherent pad & Kerlex. Discontinued RAC peripheral IV r/t dislodged. New peripheral IV placed 18g in Right Wrist with dressing c/d/i. Patient tolerated well otherwise uneventful shift. Patient shows no s/s of acute distress noted at this time. Will continue to monitor.
[2020-10-18 03:48] VITALS: BP 156/84; PULSE 105; RESP 18; TEMP 37.3; O2SAT 99
[2020-10-18 05:00] VITALS: BMI 41.4
[2020-10-18 07:57] VITALS: BP 150/86; PULSE 90; RESP 16; TEMP 37.2; O2SAT 99
--- NOTE | 2020-10-18 09:16 | HMH.ACPN2 ---
Internal Medicine - PN: Subj *Date: 10/19/20 *Time: 07:29 Interval history: doing some better - no specific c/o on abx Exam Vital signs and Labs for Last 24 Hours: Temp Pulse Resp BP Pulse Ox 98.9 F 90 16 150/86 H 99 10/18/20 07:57 10/18/20 07:57 10/18/20 07:57 10/18/20 07:57 10/18/20 07:57 I & O for Last 24 hours: Intake & Output 10/15/20 10/16/20 10/17/20 10/18/20 11:59 11:59 11:59 11:59 Intake Total 1880 / 1880 1320 / 1320 Output Total 1250 / 1250 525 / 525 Balance 630 / 630 795 / 795 Weight 270 lb 280 lb - Constitutional no acute distress, obese - *Routine HEENT Exam Head: Present: normocephalic Eye: Present: EOMI, PERRL ENT: Present: mucous membranes dry - *Routine Neck Exam Absent: JVD - *Routine Respiratory Exam Present: decreased breath sounds - *Routine Cardiovascular Exam Present: RRR - *Routine Abdominal Exam Present: soft - *Routine Extremities Exam Absent: calf tenderness - *Routine Skin Exam Comments: has ongoing changes lower ext - *Routine Neurological Exam Present: alert, CN II-XII intact - Routine Psychiatric Exam Present: normal affect Assessment and Plan (1) Abscess of left lower extremity Status: Acute Category: Medical Code(s): L02.416 - Cutaneous abscess of left lower limb (2) Cellulitis Status: Acute Qualifiers: Site of cellulitis: extremity Site of cellulitis of extremity: lower extremity Laterality: left Qualified Code(s): L03.116 - Cellulitis of left lower limb Category: Medical Code(s): L03.90 - Cellulitis, unspecified (3) Right foot ulcer Status: Acute Qualifiers: Non-pressure ulcer stage: with muscle involvement without evidence of necrosis Qualified Code(s): L97.515 - Non-pressure chronic ulcer of other part of right foot with muscle involvement without evidence of necrosis Category: Medical Code(s): L97.519 - Non-pressure chronic ulcer of other part of right foot with unspecified severity (4) Abscess of right foot Status: Acute Category: Medical Code(s): L02.611 - Cutaneous abscess of right foot (5) Bilateral lower extremity edema Status: Acute Category: Medical Code(s): R60.0 - Localized edema (6) Morbid obesity with body mass index (BMI) of 40.0 to 49.9 Status: Chronic Category: Medical Code(s): E66.01 - Morbid (severe) obesity due to excess calories (7) Hypothyroidism (acquired) Status: Acute Category: Medical Code(s): E03.9 - Hypothyroidism, unspecified (8) Severe sepsis with acute organ dysfunction Status: Acute Category: Medical Code(s): A41.9 - Sepsis, unspecified organism; R65.20 - Severe sepsis without septic shock
[2020-10-18 13:11] LABS: Vancomycin,Trough 16.1 ug/mL (5.0-10.0)
--- NOTE | 2020-10-18 14:02 | HMH.PHACONS ---
- Pharmacy Consult Date: 10/18/20 Time: 14:02 Referring provider: DR. ROPER Reason for Consult:: VANCOMYCIN TROUGH LEVEL Allergies and ADEs:: Allergies Allergy/AdvReac Type Severity Reaction Status Date / Time codeine Allergy Severe Anaphylaxis Verified 10/16/20 21:47 guaifenesin [From Mucinex] Allergy Severe SWELLS Verified 10/16/20 21:47 ketorolac [From Toradol] Allergy Severe Difficulty Verified 10/16/20 21:47 Swallowing Home Medications:: Home Medications Medication Instructions Recorded Confirmed Type cholecalciferol (vitamin D3) 1,250 1,250 mcg PO WEEKLY 04/14/20 10/16/20 History mcg (50,000 unit) capsule Albuterol Sulfate [Albuterol 1 puff IH Q6HP PRN 05/04/20 10/16/20 History 0.083% 2.5mg/3mL neb] levothyroxine 25 mcg tablet 25 mcg PO DAILY #90 tab 05/07/20 10/16/20 Rx lisinopril 10 1 tab PO DAILY #90 tab 05/07/20 10/16/20 Rx mg-hydrochlorothiazide 12.5 mg tablet metoprolol succinate 50 mg 50 mg PO DAILY #90 tab 05/07/20 10/16/20 Rx tablet,extended release 24 hr fluticasone fur. 100 mcg-umeclid 1 each INHALATION DAILY #60 each 05/25/20 10/16/20 Rx 62.5 mcg-vilant 25 mcg inhalat.powder collagenase clostridium histo. 250 1 applic TOPICAL DAILY #90 g 09/08/20 10/16/20 Rx unit/gram topical ointment gentamicin 0.1 % topical cream 1 applic TOPICAL DAILY 30 Days #30 09/08/20 10/16/20 Rx g mupirocin 2 % topical ointment 1 applic TOPICAL BID 30 Days #22 g 09/08/20 10/16/20 Rx clobetasol 0.05 % topical cream 1 applic TOPICAL BID PRN 14 Days 09/22/20 10/16/20 Rx #30 g gabapentin 600 mg tablet 600 mg PO QID PRN #60 tab 09/22/20 10/16/20 Rx levofloxacin 750 mg tablet 750 mg PO DAILY 14 Days #14 tab 10/12/20 10/16/20 Rx minocycline 100 mg capsule 100 mg PO BID 14 Days #28 cap 10/12/20 10/16/20 Rx Height: 1.75 m Weight: 127.006 kg Laboratory Results:: Laboratory Results - last 24 hr 10/18/20 12:30: Vancomycin Trough 16.1 H Medical History: Reports:: Chronic Obstructive Pulmonary Disease (COPD), Hypertension Denies:: Cancer, Diabetes Mellitus Type 1, Diabetes Mellitus Type 2, MRSA, Seizures Assessment and Plan (1) Abscess of left lower extremity Status: Acute Category: Medical Code(s): L02.416 - Cutaneous abscess of left lower limb (2) Cellulitis Status: Acute Qualifiers: Site of cellulitis: extremity Site of cellulitis of extremity: lower extremity Laterality: left Qualified Code(s): L03.116 - Cellulitis of left lower limb Category: Medical Code(s): L03.90 - Cellulitis, unspecified (3) Right foot ulcer Status: Acute Qualifiers: Non-pressure ulcer stage: with muscle involvement without evidence of necrosis Qualified Code(s): L97.515 - Non-pressure chronic ulcer of other part of right foot with muscle involvement without evidence of necrosis Category: Medical Code(s): L97.519 - Non-pressure chronic ulcer of other part of right foot with unspecified severity (4) Abscess of right foot Status: Acute Category: Medical Code(s): L02.611 - Cutaneous abscess of right foot (5) Bilateral lower extremity edema Status: Acute Category: Medical Code(s): R60.0 - Localized edema (6) Morbid obesity with body mass index (BMI) of 40.0 to 49.9 Status: Chronic Category: Medical Code(s): E66.01 - Morbid (severe) obesity due to excess calories (7) Hypothyroidism (acquired) Status: Acute Category: Medical Code(s): E03.9 - Hypothyroidism, unspecified (8) Severe sepsis with acute organ dysfunction Status: Acute Category: Medical Code(s): A41.9 - Sepsis, unspecified organism; R65.20 - Severe sepsis without septic shock - Assessment and plan all Dx Assessment and Plan for all problems:: BASED ON PATIENT FACTORS AND VANCOMYCIN TROUGH LEVEL, RECOMMEND CONTINUING VANCOMYCIN 2 GM IV Q8H. PHARMACY WILL CONTINUE TO MONITOR DAILY AND ADJUST APPROPRIATE.
[2020-10-18 16:00] VITALS: BP 138/78; PULSE 80; RESP 18; TEMP 37; O2SAT 98
--- NOTE | 2020-10-18 17:45 | PC.NURSE ---
Pt has been up to the recliner most of the day and sleeping. Dressing on BLE remains CDI. Pt has c/o pain x3 this shift and has been medicated per MAR. No other acute changes or complaints at this time. Will continue to monitor
[2020-10-18 20:00] VITALS: BP 163/85; PULSE 76; RESP 16; TEMP 36.7; O2SAT 99
--- NOTE | 2020-10-19 03:13 | PC.NURSE ---
No acute changes overnight. Pt is A&O x4 and has slept well through the night. Pain meds given per mar x1. Lungs CTA, bowel sounds x4. IV patent, 18g in the L AC, NS @ 100. Pt voiding in urinal. drsg on BLE are CDI. pt able to ambulate independently. VSS, call light in reach, no concerns at this time.
[2020-10-19 04:00] VITALS: BP 151/76; PULSE 76; RESP 16; TEMP 37; O2SAT 96
[2020-10-19 05:00] VITALS: BMI 41.4
[2020-10-19 06:30] LABS: Basophils % 0.7 % (0.1-2.0); Eosinophils # 0.2 K/mm3 (0.0-0.4); Eosinophils % 6.4 % (0.1-12.0); Hemoglobin 11.8 g/dL (14.1-18.0); Lymphocytes # 1.1 K/mm3 (0.7-4.5); Lymphocytes % 29.9 % (10-50); Mean Corpuscular HGB Conc 32.7 g/dL (31.8-35.4); Mean Corpuscular Hemoglobin 31.6 pg (27.0-31.2); Mean Corpuscular Volume 96.6 fl (80-94); Mean Platelet Volume 8.8 fl (7.4-10.4); Monocytes # 0.3 K/mm3 (0.1-1.0); Monocytes % 7.2 % (1.7-9.3); Neutrophils % 55.9 % (37.0-80.0); Platelet Count 69 K/mm3 (142-424); Red Blood Count 3.72 M/mm3 (4.60-6.20); White Blood Count 3.5 K/mm3 (4.8-10.8)
[2020-10-19 08:00] VITALS: BP 148/62; PULSE 72; RESP 18; TEMP 36.9; O2SAT 97
--- NOTE | 2020-10-19 08:17 | HMH.ORTHOCON ---
*Admission Date: 10/16/20 <TrevAmaya 10/19/20 08:18> *Reason for consult:: Cellulitis, B/L lower extremity wounds <Genie Humphreys - 10/19/20 09:15> *History of present illness: Patient sitting up in his chair this morning resting. States he has been getting morphine for the pain but it does not seem to be helping. Patient states he was admitted on Monday because his legs were swelled and were very red. He stated the pain felt like his right leg was splitting into down the middle. Today the legs are still 1+ at the edema noted there is slough on the wound bed but no drainage when compressed. We will debride and clean of the wounds today and redressed them with Betadine dressings. <Genie Humphreys - 10/19/20 09:15> [facility] History I have reviewed the patient's past medical history: Yes <Genie Humphreys 10/19/20 09:15> Medical History: Reports:: Chronic Obstructive Pulmonary Disease (COPD), Hypertension Denies:: Cancer, Diabetes Mellitus Type 1, Diabetes Mellitus Type 2, MRSA, Seizures <Amaya Karimi 10/19/20 08:18> *Have you ever received a pneumonia vaccine?: No <Amaya Karimi 10/19/20 08:18> *Have you received a flu vaccine this season?: No <Amaya Karimi 10/19/20 08:18> Other Medical History: Reports: Arthritis, Liver Disease. Denies: Blood Transfusion Reaction <Amaya Karimi 10/19/20 08:18> Laterality Cases: Bilateral: Tonsillectomy, Other <Amaya Karimi 10/19/20 08:18> Other Surgeries: Yes: Ureter Stent, Other <Amaya Karimi 10/19/20 08:18> Amputation: No <Amaya Karimi 10/19/20 08:18> Fractures: Yes <Amaya Karimi 10/19/20 08:18> - *Social History Smoking Status: Former smoker <Amaya Karimi 10/19/20 08:18> Tobacco Type: cigarettes <Amaya Karimi 10/19/20 08:18> # Packs/Day (cigarettes): 0 <Amaya Karimi 10/19/20 08:18> Alcohol Intake: never <Amaya Karimi 10/19/20 08:18> Substance Use Type: heroin, amphetamines, opiates, painkillers, methamphetamine, prescription drug <TrevAmaya 10/19/20 08:18> Last Used Substance: unknown <Amaya Karimi 10/19/20 08:18> *Occupational Status:: unemployed <TrevAmaya 10/19/20 08:18> Housing: house <TrevAmaya 10/19/20 08:18> Household Members: family <TrevAmaya 10/19/20 08:18> *Travel in the last 8 weeks: None <TrevAmaya 10/19/20 08:18> Family Hx:: Asthma, Cancer, Hyperlipidemia, Hypertension, Alcoholism <TrevAmaya 10/19/20 08:18> Review of Systems - Constitutional Denies fatigue <PetrGenie L 10/19/20 09:15> - Eyes Denies change in vision <PetrGenie L 10/19/20 09:15> - ENT Denies abnormal hearing <PetrGenie L 10/19/20 09:15> - *Cardiovascular Denies chest pain <PetrGeniejace Watkins 10/19/20 09:15> - *Respiratory Denies chest congestion, Denies shortness of breath <Genie Humphreys 10/19/20 09:15> - *Gastrointestinal Denies abdominal pain <PetrGeniejace Watkins 10/19/20 09:15> - *Genitourinary Denies difficulty urinating <PetrGeniejace Watkins 10/19/20 09:15> - Integumentary/Breasts Reports redness, Reports other <Genie Humphreys 10/19/20 09:15> Comments: Patient has had bilateral lower extremities for a while now since back into the summer 2019. We have been seeing the patient in debriding the wounds routinely. The wounds have come a long way but they are still not closed. Patient keeps getting infection in the wounds making it difficult to close them. Will discuss plan with PCP. <Genie Humphreys - 10/19/20 09:15> - *Neurologic Denies abnormal walking <Genie Humphreys - 10/19/20 09:15> Denies localized weakness, Denies headache(s) <Amaya Karimi 10/19/20 08:18> - Psychiatric Denies anxiety <Genie Humphreys 10/19/20 09:15> - Endocrine Denies cold intolerance <Genie Humphreys - 10/19/20 09:15> Meds Home Medications Medication Instructions Recorded Confirmed Type cholecalciferol (vitamin D3) 1,250 1,2
--- NOTE | 2020-10-19 08:46 | HMH.ACPN2 ---
Internal Medicine - PN: Subj *Date: 10/19/20 *Time: 08:30 Interval history: pt sitting up in chair. states doing good today Exam Vital signs and Labs for Last 24 Hours: Temp Pulse Resp BP Pulse Ox 98.5 F 72 18 148/62 H 97 10/19/20 08:00 10/19/20 08:00 10/19/20 08:00 10/19/20 08:00 10/19/20 08:00 Laboratory Results - last 24 hr 10/18/20 12:30: Vancomycin Trough 16.1 H 10/19/20 05:41: WBC 3.5 L D, RBC 3.72 L, Hgb 11.8 L, Hct 36.0 L, MCV 96.6 H, MCH 31.6 H, MCHC 32.7, RDW 15.0, Plt Count 69 L, MPV 8.8, Neut % (Auto) 55.9, Lymph % (Auto) 29.9, [place] % (Auto) 7.2, Eos % (Auto) 6.4, Baso % (Auto) 0.7, Neut # (Auto) 2.0, Lymph # (Auto) 1.1, [place] # (Auto) 0.3, Eos # (Auto) 0.2, Baso # (Auto) 0.0 I & O for Last 24 hours: Intake & Output 10/16/20 10/17/20 10/18/20 10/19/20 11:59 11:59 11:59 11:59 Intake Total 1880 / 1880 1680 / 1680 1680 / 1680 Output Total 1250 / 1250 525 / 525 2425 / 2425 Balance 630 / 630 1155 / 1155 -745 / -745 Weight 270 lb 280 lb 280 lb 0.005 oz Microbiology Reports for the Last 24 Hours: Microbiology 10/16/20 18:30 Blood Blood Culture - Preliminary NO GROWTH AFTER 48 HOURS 10/16/20 18:30 Blood Blood Culture - Preliminary NO GROWTH AFTER 48 HOURS - Constitutional no acute distress, obese - *Routine HEENT Exam Head: Present: normocephalic Eye: Present: PERRL ENT: Present: mucous membranes moist - *Routine Neck Exam Present: supple. Absent: lymphadenopathy - *Routine Respiratory Exam Present: CTA bilaterally - *Routine Cardiovascular Exam Present: RRR - *Routine Abdominal Exam Present: soft, normoactive bowel sounds. Absent: tenderness - *Routine Extremities Exam Absent: cyanosis, clubbing, edema - *Routine Skin Exam Present: warm, wounds. Absent: rash Comments: dressing to rt foot and left calf/ankle - *Routine Neurological Exam Present: alert, oriented X3 - Routine Psychiatric Exam Present: normal affect Assessment and Plan (1) Abscess of left lower extremity Status: Acute Category: Medical Code(s): L02.416 - Cutaneous abscess of left lower limb (2) Cellulitis Status: Acute Qualifiers: Site of cellulitis: extremity Site of cellulitis of extremity: lower extremity Laterality: left Qualified Code(s): L03.116 - Cellulitis of left lower limb Category: Medical Code(s): L03.90 - Cellulitis, unspecified (3) Right foot ulcer Status: Acute Qualifiers: Non-pressure ulcer stage: with muscle involvement without evidence of necrosis Qualified Code(s): L97.515 - Non-pressure chronic ulcer of other part of right foot with muscle involvement without evidence of necrosis Category: Medical Code(s): L97.519 - Non-pressure chronic ulcer of other part of right foot with unspecified severity (4) Abscess of right foot Status: Acute Category: Medical Code(s): L02.611 - Cutaneous abscess of right foot (5) Bilateral lower extremity edema Status: Acute Category: Medical Code(s): R60.0 - Localized edema (6) Morbid obesity with body mass index (BMI) of 40.0 to 49.9 Status: Chronic Category: Medical Code(s): E66.01 - Morbid (severe) obesity due to excess calories (7) Hypothyroidism (acquired) Status: Acute Category: Medical Code(s): E03.9 - Hypothyroidism, unspecified (8) Severe sepsis with acute organ dysfunction Status: Acute Category: Medical Code(s): A41.9 - Sepsis, unspecified organism; R65.20 - Severe sepsis without septic shock - Assessment and plan all Dx Assessment and Plan for all problems:: rounded with Dr bustamante all orders per dr bustamante continue to follow with dr chamberlain
--- NOTE | 2020-10-19 09:24 | HMH.PHAINT ---
PLATELETS DROPPED TO 69 TODAY. PATIENT CAN'T WEAR SCDS OR WAYLON HOSE DUE TO CELLULITIS. WILL STOP LOVENOX AND START ASPIRIN 325 MG PER EUGONDA. PCP WILL ALSO TALK TO DR JOINER ABOUT INITIATING XARELTO.
[2020-10-19 11:55] VITALS: PULSE 81; PULSE 89; O2SAT 97
--- NOTE | 2020-10-19 11:59 | SW/DCPLANNER ---
Addendum entered by Sheri Suarez 10/20/20 11:52: Debbie with [facility] has confirmed that patient information/order has been reviewed and services will resume for this patient. Addendum entered by Sheri Suarez 10/20/20 09:30: Patient information has been faxed to [facility]. I will follow up with Debbie from [facility] once patient information is reviewed. Addendum entered by Sheri Jackson 10/19/20 12:05: Fanta with [facility] has confirmed that patient is receiving dressing changes twice a week under their services. Original Note: I have spoke with this patient regarding home health services. Patient stated that he uses [facility] and services ended this past Thursday 10/12. I have spoke with Debbie at [facility] and she stated that this patient is currently admitted status. I will follow up with Debbie once patient is medically stable regarding resumption of services. Discharge date is unknown at this time.
[2020-10-19 12:48] VITALS: BMI 41.4
[2020-10-19 15:29] VITALS: BP 137/81; PULSE 74; RESP 16; TEMP 36.8; O2SAT 98
--- NOTE | 2020-10-19 18:09 | PC.NURSE ---
PATIENT IS A&O X4, LUNGS: RIGHT SIDE EXPIRATORY RHONCHI HEARD, LEFT SIDE: CLEAR. PULSES EQUAL. PATIENT HAS HAD SEVERAL COMPLAINTS OF PAIN AND THAT MORPHINE DOES NOT WORK. PATIENT REQUESTS MORPHINE TO BE CHANGED TO DILAUDID. MD MADE AWARE. ON 2 OCCASIONS PATIENT REQUESTED PAIN MEDICATION, UPON ENTERING PATIENT ROOM, PATIENT WAS SLEEPING. NO OTHER CONCERNS AT THIS TIME.
[2020-10-19 18:45] VITALS: PULSE 65; PULSE 67; O2SAT 98
[2020-10-19 20:00] VITALS: BP 143/77; PULSE 72; RESP 17; TEMP 36.7; O2SAT 97
[2020-10-20 04:00] VITALS: BP 156/99; PULSE 71; RESP 17; TEMP 36.6; O2SAT 97
[2020-10-20 05:00] VITALS: BMI 41.4
[2020-10-20 06:22] VITALS: O2SAT 97
--- NOTE | 2020-10-20 07:09 | PC.NURSE ---
shift summary pts lung sounds are clear with sats maintained 95% or above on room air with a ranging from 16-18. pt complained of pain multiply times which was relieved with pain meds. pt is alert and oriented X4. pt denies nausea, vomiting, and diarrhea pt uses bedside urinal, urine is clear and yellow in color.
[2020-10-20 08:00] VITALS: BP 147/84; PULSE 79; RESP 18; TEMP 36.6; O2SAT 99
--- NOTE | 2020-10-20 08:12 | HMH.ORTHPN ---
Subjective Date: 10/20/20 <Amaya Karimi - 10/20/20 08:16> Time: 07:45 <Amaya Karimi - 10/20/20 08:16> Principal diagnosis: B/L LE ulcers <Amaya Karimi - 10/20/20 08:16> Interval history: Patient is resting comfortably in bed. He reports pain and swelling to both legs. Patient requesting pain medication. <Amaya Karimi - 10/20/20 08:16> PN: Obj Ex Vital signs: Temp Pulse Resp BP Pulse Ox 97.8 F 71 17 156/99 H 97 10/20/20 04:00 10/20/20 04:00 10/20/20 04:00 10/20/20 04:00 10/20/20 06:22 <Genie Humphreys - 10/20/20 09:05> Temp Pulse Resp BP Pulse Ox 97.8 F 71 17 156/99 H 97 10/20/20 04:00 10/20/20 04:00 10/20/20 04:00 10/20/20 04:00 10/20/20 06:22 <Amaya Karimi - 10/20/20 08:16> - Constitutional no acute distress, obese <Genie Humphreys - 10/20/20 09:17> - Routine HEENT Exam Head: Present: normocephalic <Genie Humphreys - 10/20/20 09:17> Eye: Present: PERRL <Genie Humphreys - 10/20/20 09:17> ENT: Present: mucous membranes moist <Genie Humphreys - 10/20/20 09:17> - Routine Neck Exam Present: full ROM, trachea midline <Genie Humphreys - 10/20/20 09:17> - Routine Respiratory Exam Absent: respiratory distress <Genie Humphreys - 10/20/20 09:17> - Routine Cardiovascular Exam Present: RRR <Genie Humphreys - 10/20/20 09:17> - Routine Abdominal Exam Present: soft, obese <Genie Humphreys - 10/20/20 09:17> - Routine Extremities Exam Present: edema (B/L lower extremities are very tight this morning. ), pulses intact, normal capillary refill <Genie Humphreys Sarah 10/20/20 09:17> - Detailed Lower Extremity Exam Leg image: 1 - 1 - Left medial wound measures 5.3 x 2.7 x 0.1 cm. 90% granular 10% yellow fibrotic slough. Slightly macerated around the lateral border of the wound erythema noted. No drainage when compressed. No malodor. 2 - 2 - Left lateral anterior leg wound. Measures 2.2 x 1.6 x 0.1 cm. 100% granular wound bed. No drainage when compressed. No malodor. Erythema and edema surrounding the wound. <PetrGenie Sarah 10/20/20 09:17> Top foot image: 1 - Right top of foot measures 2.6 x 3.0 0.1 cm. 95% granular, 5% yellow fibrotic tissue, no drainage noted no malodor. <PetrGenie Sarah 10/20/20 09:17> Comments: Bilateral legs had slight erythema and 1+ pitting edema noted, very tight this am. Did not appear to be any ascending cellulitis going up the leg. No drainage noted when compressing the wounds today, so no wound cultures were obtained.The wounds needed minimal debriding today, they looked good. They were redressed with Betadine soaked 4 x 4, dry 4 x 4 Kerlix and Vamsi wrap. <PetrGenie Sarah Watkins 10/20/20 09:17> - Routine Skin Exam Present: intact, erythema, dry, wounds <PetrGenie Sarah Watkins 10/20/20 09:17> - Routine Neurological Exam Present: oriented X3, moving all extremities, normal speech <PetrGenie L 10/20/20 09:17> - Routine Psychiatric Exam Present: normal affect, cooperative <PetrGenie Sarah - 10/20/20 09:17> Progress Note: A&P (1) Abscess of left lower extremity Status: Acute (2) Cellulitis Status: Acute (3) Right foot ulcer Status: Acute (4) Abscess of right foot Status: Acute (5) Bilateral lower extremity edema Status: Acute (6) Morbid obesity with body mass index (BMI) of 40.0 to 49.9 Status: Chronic (7) Hypothyroidism (acquired) Status: Acute (8) Severe sepsis with acute organ dysfunction Status: Acute (9) Venous stasis Status: Acute (10) Venous ulcer of left leg Status: Acute <Genie Humphreys - 10/20/20 09:05> (1) Abscess of left lower extremity Status: Acute (2) Cellulitis Status: Acute (3) Right foot ulcer Status: Acute (4) Abscess of right foot Status: Acute (5) Bilatera
[2020-10-20 08:57] LABS: Basophils % 0.5 % (0.1-2.0); Eosinophils # 0.2 K/mm3 (0.0-0.4); Lymphocytes # 0.7 K/mm3 (0.7-4.5); Lymphocytes % 27.5 % (10-50); Mean Corpuscular HGB Conc 32.5 g/dL (31.8-35.4); Mean Corpuscular Hemoglobin 31.4 pg (27.0-31.2); Mean Corpuscular Volume 96.7 fl (80-94); Mean Platelet Volume 8.7 fl (7.4-10.4); Monocytes # 0.2 K/mm3 (0.1-1.0); Monocytes % 8.2 % (1.7-9.3); Neutrophils # 1.4 K/mm3 (1.8-7.8); Neutrophils % 54.7 % (37.0-80.0); Platelet Count 59 K/mm3 (142-424); Red Blood Count 3.52 M/mm3 (4.60-6.20); Red Cell Distribution Width 15.3 % (11.5-17.5); White Blood Count 2.6 K/mm3 (4.8-10.8)
[2020-10-20 09:04] LABS: Chloride 110 mmol/L (98-107); Sodium 139 mmol/L (136-145)
[2020-10-20 09:05] LABS: Potassium 4.1 mmoL/L (3.5-5.1)
[2020-10-20 09:08] LABS: Anion Gap 5.1 mEq/L (5-15); Blood Urea Nitrogen 10 mg/dl (9-20); Calcium 8.1 mg/dl (8.4-10.2); Carbon Dioxide 28 mmol/L (22.0-30.0); Creatinine Clearance Estimated 126 mL/min (50-200); Estimated Glomerular Filt Rate 121 ml/min (>60); GFR (African American) 146 ML/MIN (>60); Glucose 178 mg/dl (74-100)
[2020-10-20 09:13] LABS: C-Reactive Protein 3.2 mg/L (0-4)
--- NOTE | 2020-10-20 09:43 | P.PN_ITS ---
Internal Medicine - PN: Subj *Date: 10/20/20 *Time: 09:43 Exam Vital signs and Labs for Last 24 Hours: Temp Pulse Resp BP Pulse Ox 98 F 79 18 147/84 H 99 10/20/20 08:00 10/20/20 08:00 10/20/20 08:00 10/20/20 08:00 10/20/20 08:00 Laboratory Results - last 24 hr 10/20/20 08:44: C-Reactive Protein 3.2 10/20/20 08:44: WBC 2.6 L D, RBC 3.52 L, Hgb 11.0 L, Hct 34.0 L, MCV 96.7 H, MCH 31.4 H, MCHC 32.5, RDW 15.3, Plt Count 59 L, MPV 8.7, Neut % (Auto) 54.7, Lymph % (Auto) 27.5, [place] % (Auto) 8.2, Eos % (Auto) 9.0, Baso % (Auto) 0.5, Neut # (Auto) 1.4 L, Lymph # (Auto) 0.7, [place] # (Auto) 0.2, Eos # (Auto) 0.2, Baso # (Auto) 0.0 10/20/20 08:44: Sodium 139, Potassium 4.1, Chloride 110 H, Carbon Dioxide 28, Anion Gap 5.1, BUN 10, Creatinine 0.70, Estimated Creat Clear 126, Estimated GFR 121, Est GFR ( Amer) 146, Glucose 178 H, Calcium 8.1 L I & O for Last 24 hours: Intake & Output 10/17/20 10/18/20 10/19/20 10/20/20 23:59 23:59 23:59 23:59 Intake Total 2760 / 2760 1200 / 1200 2420 / 2420 240 / 240 Output Total 1775 / 1775 2024 / 2024 400 / 800 400 / 400 Balance 985 / 985 -825 / -825 2019 / 1620 -160 / -160 Weight 122.47 kg 127.006 kg 127 kg 127 kg Assessment and Plan (1) Abscess of left lower extremity Status: Acute Category: Medical Code(s): L02.416 - Cutaneous abscess of left lower limb (2) Cellulitis Status: Acute Qualifiers: Site of cellulitis: extremity Site of cellulitis of extremity: lower extremity Laterality: left Qualified Code(s): L03.116 - Cellulitis of left lower limb Category: Medical Code(s): L03.90 - Cellulitis, unspecified (3) Right foot ulcer Status: Acute Qualifiers: Non-pressure ulcer stage: with muscle involvement without evidence of necrosis Qualified Code(s): L97.515 - Non-pressure chronic ulcer of other part of right foot with muscle involvement without evidence of necrosis Category: Medical Code(s): L97.519 - Non-pressure chronic ulcer of other part of right foot with unspecified severity (4) Abscess of right foot Status: Acute Category: Medical Code(s): L02.611 - Cutaneous abscess of right foot (5) Bilateral lower extremity edema Status: Acute Category: Medical Code(s): R60.0 - Localized edema (6) Morbid obesity with body mass index (BMI) of 40.0 to 49.9 Status: Chronic Category: Medical Code(s): E66.01 - Morbid (severe) obesity due to excess calories (7) Hypothyroidism (acquired) Status: Acute Category: Medical Code(s): E03.9 - Hypothyroidism, unspecified (8) Severe sepsis with acute organ dysfunction Status: Acute Category: Medical Code(s): A41.9 - Sepsis, unspecified organism; R65.20 - Severe sepsis without septic shock (9) Venous stasis Status: Acute Category: Medical Code(s): I87.8 - Other specified disorders of veins (10) Venous ulcer of left leg Status: Acute Category: Medical Code(s): I83.029 - Varicose veins of left lower extremity with ulcer of unspecified site; L97.929 - Non-pressure chronic ulcer of unspecified part of left lower leg with unspecified severity The patient's infection will respond to the chosen ABx?: Yes (EMPIRIC TREATMENT WITH VANCOMYCIN/MERREM) Is the patient receiving the right drug, dose, and route?: Yes Could a more targeted ABx be ordered?: No (BASED ON PREVIUOS CULTURES OF WOUNDS)
--- NOTE | 2020-10-20 10:07 | HMH.PTWOUND ---
Rehab Inpt Wound Evaluation Rehab IP Wound Evaluation Start: 10/20/20 08:17 Freq: ONCE Status: Active Protocol: Document 10/20/20 08:50 PHORSHARRON (Rec: 10/20/20 10:07 PHORNE [id number]) Rehab PT Wound Assessment Subjective Subjective 45 yowm adm to [facility] with B LE cellulitis. Has hx of chronic B LE wounds with poor healing. Wound Left Anterior Medial Tam Wound Type Stasis Ulcer Is This a Chronic Wound Yes Wound Length (cm) 6.0 Wound Width (cm) 3.0 Wound Bed Appearance Beefy Red Percentage Granulated (%) 99 Wound Margins Description Well Defined Surrounding Tissue Appearance [place] Edema Type Pitting Edema Degree 2+ Query Text:1+ Trace, Barely Detectable, Rebound 15-30 seconds 2+ Moderate, Slight Indentation, Rebound 10-20 seconds 3+ Deep, Deeper Indentation, Rebound > 30 seconds 4+ Very Deep, Rebound > 60 seconds Wound Drainage Description Serosanguineous Drainage Amount Moderate Primary Dressing Gauze Pad Comment betadine Wound Secondary Dressing Type Gauze Roll/Wrap,Elastic Bandage Wound Debridement Amount of Tissue None Removed Dressing Change Patient Tolerance Tolerated Well 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 Wound Length (cm) 2.5 Wound Width (cm) 2.5 Wound Bed Appearance Beefy Red Percentage Granulated (%) 99 Wound Margins Description Well Defined Surrounding Tissue Appearance [place] Edema Type Pitting Edema Degree 2+ Query Text:1+ Trace, Barely Detectable, Rebound 15-30 seconds 2+ Moderate, Slight Indentation, Rebound 10-20 seconds 3+ Deep, Deeper Indentation, Rebound > 30 seconds 4+ Very Deep, Rebound > 60 seconds Wound Drainage Description Serosanguineous Drainage Amount Moderate Primary Dressing Gauze Pad Comment betadine Wound Secondary Dressing Type Gauze Roll/Wrap,Elastic Bandage Wound Debridement Amount of Tissue None Removed Dressing Change Patient Tolerance Tolerated Well Plan/Recommendation Comment Pt wounds appear very clear at this time after debridement by DPM, recommend dressing changes with collagen
[2020-10-20 10:11] LABS: Erythrocyte Sedimentation Rate 22 mm/hr (0-15)
--- NOTE | 2020-10-20 10:32 | HMH.DCSUM ---
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 PT STATES HOME HEALTH COMES TO HOUSE AND CHANGES DRESSINGS APPROX 2 TIMES PER WEEK. STATES TODAY NURSE TOLD PT AREAS WERE GETTING WORSE AND SHOULD COME TO HOSPITAL FOR EVAL. PT C/O SWELLING, REDNESS, DRAINAGE AND INCREASING PAIN TO AREA 45-year-old male presenting to the emergency department with wounds on his legs. The patient has had these for quite some time. He has had multiple debridements. Patient has been seeing orthopedic surgery secondary to this. He states that the pain has been getting worse over the last few days. He states that the pain got so severe today that he came to the emergency department. He did have positive wound cultures a few days ago when he went to see his surgeon. He has also been having some discharge from the wounds on both of his legs. He states that he has been having home health care, however his bandages do not look like they have been changing quite some time. He denies any fevers or chills. He does not have any chest pain or shortness of breath. No abdominal pain or vomiting. No headache or change in vision. No focal weakness. pt was admitted for ivabx and treatment Hospital Course Hospital Course: 45-year-old male patient presents to the emergency department with wounds to bilateral lower extremities. He stated he has had these wounds for an extended amount of time and has had multiple debridements. He reported that his pain is been getting worse over the last few days and today became so severe he proceeded to the emergency department. He stated in the emergency department that home health care has been changing his dressings but staff in emergency department stated it did not look like the dressings have been changed in quite some time. Lab work in the emergency department revealed white blood cell count 2.3, hemoglobin 11.4, hematocrit 34.8, and platelets 67 Chemistries unremarkable 10/16/20 R Foot XR: FINDINGS: No fracture or dislocation. No lytic or blastic change. There is normal mineralization. The joint spaces are well-preserved. No significant degenerative/arthritic changes. No erosive changes evident. Other findings:There is a small metallic linear density between the proximal phalanges of the 2nd and 3rd digits. No bony erosive process. Lucency is noted along the dorsal aspect of the foot at the metatarsophalangeal junction consistent with and ulceration. IMPRESSION: Metallic foreign body between the 2nd and 3rd toes with a soft tissue defect dorsally at the metatarsophalangeal junction Dictated by: Masoud 10/16/20 L Tib/Fib XR: FINDINGS: No fracture or dislocation. No lytic or blastic change. There is normal mineralization. The joint spaces are well-preserved. No significant degenerative/arthritic changes. No erosive changes evident. Other findings:There is mild generalized soft tissue swelling. No soft tissue gas or radiopaque foreign IMPRESSION: Soft tissue swelling otherwise negative Dictated by: Masoud, During his stay patient has received meropenem and vancomycin for IV antibiotic therapy and morphine for pain Podiatry seen today and cleansed the wounds with betadine at bedside. Minimal debridement today, patient refused. Patient lying in bed resting quietly today reports he is ready to go home, asking if home health care visiting him if he can go home. We discussed being discharged today with home health care and stressed importance of medical adherence, wound care, and home health care. Patient verbalizes understanding and agrees to follow instructions and will follow up in podiatry and PCP next week appointments remain on same day for convenience Plan: 1. We tod
--- NOTE | 2020-10-20 10:56 | PC.NURSE ---
RESPIRATORY CARE NOTE: PT HAS BEEN REFUSING NEBULIZER TREATMENTS- MD MAY REVIEW AND DISCONTINUE NEBULIZER TREATMENTS AT THIS TIME.
[2020-10-20 13:35] LABS: Vancomycin,Trough 18.6 ug/mL (5.0-10.0)
--- NOTE | 2020-10-20 13:54 | PC.NURSE ---
Made Miriam Carlin aware of positive CRE screen. NNO.
== END 2020-10-20 13:55 | disposition home health service (06) | DRG 300 ==
LOC: ER 19:35 → 2ND 20:20
PROVIDERS: Nurse Practitioner Family; Podiatrist; Admitting Provider Emergency Medicine; Emergency Provider Emergency Medicine; PCP Family Medicine; Visit Provider Emergency Medicine
DX: I83.029 Varicose veins of left lower extremity with ulcer of unspecified site (principal); L97.515 Non-pressure chronic ulcer of other part of right foot with muscle involvement without evidence of necrosis; Z68.41 Body mass index [BMI] 40.0-44.9, adult; L02.611 Cutaneous abscess of right foot; L02.416 Cutaneous abscess of left lower limb; L03.116 Cellulitis of left lower limb; J44.9 Chronic obstructive pulmonary disease, unspecified; I10 Essential (primary) hypertension; Z88.5 Allergy status to narcotic agent; Z88.8 Allergy status to other drugs, medicaments and biological substances; Z79.899 Other long term (current) drug therapy; E66.9 Obesity, unspecified; I87.8 Other specified disorders of veins
CPT/HCPCS: 36415; 73590; 73630; 80048; 80053; 80202; 83605; 83880; 85025; 85610; 85651; 85730; 86140; 87040; 87081; 87581; 87633; 87798; 94640; 96365; 96375; 96376; 99284; J2185; J2405; J3370

== ENCOUNTER 2020-12-29 10:17 | Observation (INO) | payer MEDICARE, OTHER, SELFPAY ==
[2020-12-29] VITALS (17 sets, daily range): BP systolic 128–156; BP diastolic 51–82; PULSE 76–103; RESP 14–20; TEMP 36.8–37.9; O2SAT 97–100; BMI 39.5; BMI 40.9
--- NOTE | 2020-12-29 10:28 | XR_ITS ---
PROCEDURE: XR CHEST PORTABLE CLINICAL HISTORY: short of breath COMPARISON: CT ABDPELW/O CT ABD PELVIS W/O CONTRAST from 05/12/2015 CR XR CHEST 2V from 03/05/2020 CR XR CHEST PORTABLE PICC PLAC from 03/25/2020 CR XR CHEST PORTABLE from 05/04/2020 FINDINGS: The cardiomediastinal silhouette and pulmonary vascularity are within normal limits. Increased markings are present in the right lower lobe however, this is a chronic finding and may be due to overlying soft tissue attenuation. Otherwise unremarkable. No acute bony abnormalities. IMPRESSION: Slight increased density in the right lower lobe which could be due to overlying soft tissue attenuation versus right lower lobe infiltrate. Upright PA and lateral chest may provide further evaluation. Dictated by: Jonnathan Meredith MD 12/29/2020 11:14 Jonnathan Meredith MD in [place] 12/29/2020 11:14
--- NOTE | 2020-12-29 10:29 | HMH.EDGENADL ---
ED Disposition Clinical Impression: Lower extremity cellulitis Qualifiers: Laterality: left Qualified Code(s): L03.116 - Cellulitis of left lower limb Sepsis Qualifiers: Sepsis type: sepsis due to unspecified organism Sepsis acute organ dysfunction status: without acute organ dysfunction Qualified Code(s): A41.9 - Sepsis, unspecified organism Disposition: Admitted As Inpatient Condition on Discharge: Serious Time of Disposition: 11:19 - Critical Care Critical Care Time: No Attestation: On 12/29/20, the high probability of a clinically significant, sudden or life threatening deterioration of the following system(s) required my full and direct attention, intervention and personal management. The time I documented below is in addition to time spent performing reported procedures but includes the following listed in this critical care notation. Medical Decision Making - Medical Records Medical records reviewed: Yes: I reviewed the patient's medical records. - Joshua Inquiry Pt receiving controlled substance: No Vital Signs: 12/29/20 10:31 12/29/20 10:53 12/29/20 11:30 Temperature 100.2 F H Temperature Source Oral Pulse Rate 91 H 82 Pulse Rate [Left] 103 H Respiratory Rate 16 Blood Pressure 136/74 139/62 Blood Pressure [Right Arm] 128/77 Blood Pressure Mean Blood Pressure Mean [Right Arm] 94 Blood Pressure Source [Right Arm] Automatic Cuff Blood Pressure Position [Right Arm] Sitting 02 Sat by Pulse Oximetry 98 98 99 Oxygen Delivery Method Room Air 12/29/20 12:00 12/29/20 12:30 12/29/20 13:00 Temperature Temperature Source Pulse Rate 82 83 Pulse Rate [Left] Respiratory Rate 18 Blood Pressure 134/68 131/69 131/68 Blood Pressure [Right Arm] Blood Pressure Mean 89 Blood Pressure Mean [Right Arm] Blood Pressure Source [Right Arm] Blood Pressure Position [Right Arm] 02 Sat by Pulse Oximetry 100 100 Oxygen Delivery Method 12/29/20 13:30 12/29/20 13:45 12/29/20 13:54 Temperature 98.4 F Temperature Source Oral Pulse Rate 86 80 Pulse Rate [Left] Respiratory Rate 14 Blood Pressure 151/73 H 151/73 H Blood Pressure [Right Arm] Blood Pressure Mean 99 Blood Pressure Mean [Right Arm] Blood Pressure Source [Right Arm] Blood Pressure Position [Right Arm] 02 Sat by Pulse Oximetry 100 100 Oxygen Delivery Method 12/29/20 14:01 12/29/20 14:31 12/29/20 14:45 Temperature Temperature Source Pulse Rate 76 92 H 85 Pulse Rate [Left] Respiratory Rate 18 18 Blood Pressure 156/73 H 143/72 H 143/72 H Blood Pressure [Right Arm] Blood Pressure Mean 95 95 Blood Pressure Mean [Right Arm] Blood Pressure Source [Right Arm] Blood Pressure Position [Right Arm] 02 Sat by Pulse Oximetry 99 99 98 Oxygen Delivery Method 12/29/20 15:00 12/29/20 15:01 Temperature Temperature Source Pulse Rate 77 83 Pulse Rate [Left] Respiratory Rate Blood Pressure 132/51 L 132/61 Blood Pressure [Right Arm] Blood Pressure Mean 78 Blood Pressure Mean [Right Arm] Blood Pressure Source [Right Arm] Blood Pressure Position [Right Arm] 02 Sat by Pulse Oximetry 97 97 Oxygen Delivery Method - Lab Data Lab Results 12/29/20 10:42: WBC 12.2 H, RBC 3.99 L, Hgb 12.4 L, Hct 36.8 L, MCV 92.4, MCH 31.1, MCHC 33.7, RDW 15.7, Plt Count 64 L, MPV 9.2, Neut % (Auto) 86.0 H, Lymph % (Auto) 9.6 L, [place] % (Auto) 3.8, Eos % (Auto) 0.3, Baso % (Auto) 0.3, Neut # (Auto) 10.5 H, Lymph # (Auto) 1.2, [place] # (Auto) 0.5, Eos # (Auto) 0.0, Baso # (Auto) 0.0, Total Counted 100, Neutrophils % (Manual) 83 H, Lymphocytes % (Manual) 15, Monocytes % (Manual) 2, Platelet Estimate Slight decrease, Macrocytosis 1+, ESR 35 H 12/29/20 10:42: Sodium 133 L, Potassium 3.0 L, Chloride 103, Carbon Dioxide 24, Anion Gap 9.0, BUN 9, Creatinine 0.70, Estimated Creat Clear 218, Estimated GFR 121, Est GFR ( Amer) 146, Glucose 146 H, Calcium 8.1 L, Total
--- NOTE | 2020-12-29 10:43 | PC.NURSE ---
Xray arrived in room,
[2020-12-29 11:01] LABS: Basophils % 0.3 % (0.1-2.0); Chloride 103 mmol/L (98-107); Eosinophils % 0.3 % (0.1-12.0); Hematocrit 36.8 % (42.0-52.0); Hemoglobin 12.4 g/dL (14.1-18.0); Lymphocytes # 1.2 K/mm3 (0.7-4.5); Lymphocytes % 9.6 % (10-50); Mean Corpuscular HGB Conc 33.7 g/dL (31.8-35.4); Mean Corpuscular Hemoglobin 31.1 pg (27.0-31.2); Mean Corpuscular Volume 92.4 fl (80-94); Mean Platelet Volume 9.2 fl (7.4-10.4); Monocytes # 0.5 K/mm3 (0.1-1.0); Monocytes % 3.8 % (1.7-9.3); Neutrophils # 10.5 K/mm3 (1.8-7.8); Platelet Count 64 K/mm3 (142-424); Red Blood Count 3.99 M/mm3 (4.60-6.20); Red Cell Distribution Width 15.7 % (11.5-17.5); Sodium 133 mmol/L (136-145); White Blood Count 12.2 K/mm3 (4.8-10.8)
[2020-12-29 11:04] LABS: Alanine Aminotransferase 38 U/L (12-78); Albumin Level 2.8 g/dl (3.5-5.0); Albumin/Globulin Ratio 0.8 (1.1-1.8); Alkaline Phosphatase 158 U/L (38-126); Aspartate Amino Transferase 48 U/L (17-59); Bilirubin,Total 2.5 mg/dl (0.2-1.3); Blood Urea Nitrogen 9 mg/dl (9-20); Carbon Dioxide 24 mmol/L (22.0-30.0); Creatinine Clearance Estimated 218 mL/min (50-200); Estimated Glomerular Filt Rate 121 ml/min (>60); GFR (African American) 146 ML/MIN (>60); Globulin 3.3 g/dL (1.3-3.2); Total Protein,Serum 6.1 g/dl (6.3-8.2)
[2020-12-29 11:05] LABS: Calcium 8.1 mg/dl (8.4-10.2); Glucose 146 mg/dl (74-100); Lactic Acid 1.1 mmol/L (0.7-2.1)
[2020-12-29 11:06] LABS: MANUAL DIFFERENTIAL MANUAL DIFFERENTIAL (MANUAL DIFF)
[2020-12-29 11:10] LABS: C-Reactive Protein 41.5 mg/L (0-4)
[2020-12-29 11:17] LABS: NT Pro Brain Natriuretic Pep. 203 pg/mL (0-125)
[2020-12-29 11:19] LABS: Troponin I 0.04 ng/ml (0.00-0.034)
--- NOTE | 2020-12-29 11:26 | HMH.PHACONS ---
- Pharmacy Consult Date: 12/29/20 Time: 11:26 Referring provider: DR. COLLINS Reason for Consult:: VANCOMYCIN DOSING Allergies and ADEs:: Allergies Allergy/AdvReac Type Severity Reaction Status Date / Time codeine Allergy Severe Anaphylaxis Verified 12/29/20 11:07 guaifenesin [From Mucinex] Allergy Severe SWELLS Verified 12/29/20 11:07 ketorolac [From Toradol] Allergy Severe Difficulty Verified 12/29/20 11:07 Swallowing Home Medications:: Home Medications Medication Instructions Recorded Confirmed Type cholecalciferol (vitamin D3) 1,250 1,250 mcg PO WEEKLY 04/14/20 12/08/20 History mcg (50,000 unit) capsule levothyroxine 25 mcg tablet 25 mcg PO DAILY #90 tab 05/07/20 12/08/20 Rx metoprolol succinate 50 mg 50 mg PO DAILY #90 tab 05/07/20 12/08/20 Rx tablet,extended release 24 hr clobetasol 0.05 % topical cream 1 applic TOPICAL BID PRN 14 Days 09/22/20 12/08/20 Rx #30 g collagenase clostridium histo. 250 1 applic TOPICAL DAILY #90 g 11/05/20 12/08/20 Rx unit/gram topical ointment gentamicin 0.1 % topical cream 1 applic TOPICAL DAILY 30 Days #30 11/05/20 12/08/20 Rx g lisinopril 10 1 tab PO DAILY #90 tab 11/05/20 12/29/20 Rx mg-hydrochlorothiazide 12.5 mg tablet mupirocin 2 % topical ointment 1 applic TOPICAL BID 30 Days #22 g 11/05/20 12/08/20 Rx gabapentin 600 mg tablet 600 mg PO QIDP PRN #120 tab 12/08/20 12/29/20 Rx Fluticasone/Umeclidin/Vilanter 1 inh INHALATION DAILY 12/29/20 History [Trelegy Ellipta] Height: 1.73 m Weight: 117.934 kg Laboratory Results:: Laboratory Results - last 24 hr 12/29/20 10:42: WBC 12.2 H, RBC 3.99 L, Hgb 12.4 L, Hct 36.8 L, MCV 92.4, MCH 31.1, MCHC 33.7, RDW 15.7, Plt Count 64 L, MPV 9.2, Neut % (Auto) 86.0 H, Lymph % (Auto) 9.6 L, [place] % (Auto) 3.8, Eos % (Auto) 0.3, Baso % (Auto) 0.3, Neut # (Auto) 10.5 H, Lymph # (Auto) 1.2, [place] # (Auto) 0.5, Eos # (Auto) 0.0, Baso # (Auto) 0.0 12/29/20 10:42: Sodium 133 L, Potassium 3.0 L, Chloride 103, Carbon Dioxide 24, Anion Gap 9.0, BUN 9, Creatinine 0.70, Estimated Creat Clear 218, Estimated GFR 121, Est GFR ( Amer) 146, Glucose 146 H, Calcium 8.1 L, Total Bilirubin 2.5 H, AST 48, ALT 38, Alkaline Phosphatase 158 H, Troponin I 0.04 H, C-Reactive Protein 41.5 H, Total Protein 6.1 L, Albumin 2.8 L, Globulin 3.3 H, Albumin/Globulin Ratio 0.8 L 12/29/20 10:42: NT-Pro-B Natriuret Pep 203 H 12/29/20 10:42: Lactate 1.1 Medical History: Reports:: Chronic Obstructive Pulmonary Disease (COPD), Hypertension Denies:: Cancer, Diabetes Mellitus Type 1, Diabetes Mellitus Type 2, MRSA, Seizures Assessment and Plan - Assessment and plan all Dx Assessment and Plan for all problems:: Age: 45 yo Serum creatinine: 0.7 mg/dL Height: 68.0 Inches Weight (kg): 117.9 Assessment: IBW (kg): 68.40 Dosing wt(kg): 117.9 Estimated Creatinine clearance (ml/min): 126.2 CRCL method: Cockcroft and Gault using ibw(default). Drug selected: Vancomycin Loading dose (mg): 0 Vd (liters): 94.3 (factor used: 0.8 L/kg) Emilio (hr-1): 0.109 Half life (hrs): 6.36 Recommended dose: 2000 mg Interval: 8 hrs Infusion time (hrs): 2.0 Predicted peak (mcg/mL): 32.7 Predicted trough (mcg/mL): 17.00 Total body weight is being used for vancomycin dosing. Recommendations: Give Vancomycin 2000 mg q 8 hrs with an expected Cpeak of 32.7 mcg/ml and an expected Ctrough of 17.00 mcg/ml
[2020-12-29 11:38] LABS: Lymphocytes % 15 % (10-50); Monocytes % 2 % (2-9); Neutrophils % 83 % (42-76); Total Cells Counted 100
[2020-12-29 11:39] LABS: Macrocytosis 1+
[2020-12-29 11:41] LABS: Platelet Estimate Slight Decrease
--- NOTE | 2020-12-29 12:07 | PC.NURSE ---
ER doctor talking to patients PCP.
--- NOTE | 2020-12-29 12:10 | PC.NURSE ---
ordered reg lunch try for patient
[2020-12-29 12:13] LABS: Microscopic, Urine URINE MICROSCOPIC (MICROSCOPIC)
[2020-12-29 12:19] LABS: Erythrocyte Sedimentation Rate 35 mm/hr (0-15)
[2020-12-29 12:19] LABS: Appearance,Urine CLEAR (Clear); Bilirubin,Urine Negative (Negative); Blood, Urine TRACE-I (Negative); Color,Urine YELLOW (Yellow); Glucose,Urine (UA) Negative (Negative); Ketones,Urine Negative (Negative); Leukocyte Esterase,Urine Negative (Negative); Nitrate,Urine Negative (Negative); PH,Urine 6.5 (5.0-8.5); Protein,Urine Negative (Negative); Specific Gravity, Urine 1.015 (1.005-1.030)
[2020-12-29 12:34] LABS: RBC,Urine Occasional #/hpf (0-3)
--- NOTE | 2020-12-29 13:23 | PC.NURSE ---
lab at bedside
--- NOTE | 2020-12-29 13:59 | PC.NURSE ---
Lab advised 40 mins left for covid results
--- NOTE | 2020-12-29 14:49 | PC.NURSE ---
attempted to call report on patient. Rn did not answer
--- NOTE | 2020-12-29 14:58 | PC.NURSE ---
report called to La Black on 2nd floor
--- NOTE | 2020-12-29 15:16 | PC.NURSE ---
Pt arrived to the floor at this time.
--- NOTE | 2020-12-29 15:51 | HMH.PHAVTE ---
[facility] Pharmacy VTE Monitoring - Patient Demographics Admission date: 12/29/20 Report Date: 12/29/20 Time: 15:51 Allergies/Adverse Reactions: Patient Allergies codeine Allergy (Severe, Verified 12/29/20 11:07) Anaphylaxis guaifenesin [From Mucinex] Allergy (Severe, Verified 12/29/20 11:07) SWELLS ketorolac [From Toradol] Allergy (Severe, Verified 12/29/20 11:07) Difficulty Swallowing Height: 1.73 m Weight: 117.934 kg Patient Problems: Current Active Problems Lower extremity cellulitis (Acute) Sepsis (Acute) - VTE Risk Labs: VTE Related Lab Results Hgb 12.4 g/dL (14.1-18.0) L 12/29/20 10:42 Hct 36.8 % (42.0-52.0) L 12/29/20 10:42 Plt Count 64 K/mm3 (142-424) L 12/29/20 10:42 BUN 9 mg/dl (9-20) 12/29/20 10:42 Creatinine 0.70 mg/dl (0.66-1.25) 12/29/20 10:42 Estimated Creat Clear 218 mL/min (50-200) 12/29/20 10:42 - Prophylaxis VTE Prophylaxis Ordered?: Yes Types of VTE Prophylaxis: TEDS Knee High Location of Applied Device: Right Leg
[2020-12-29 16:09] LABS: Troponin I 0.03 ng/ml (0.00-0.034)
--- NOTE | 2020-12-29 17:45 | HMH.HP ---
*Admission Date: 12/29/20 *Chief complaint: cellulitis right foot, left leg *History of present illness: Patient is a 45-year-old white male known to me from the office, who has had multiple surgeries on his right foot and left anterior calf. He has recurrent and refractory cellulitis without caring a diagnosis of diabetes. His clinical course has been 1 marked with recurrent debridement, surgery, and poor wound healing. He is a current smoker. ELVIS studies last summer were 1.2 bilaterally. Patient presented to the emergency room with increasing pain, history of fever, history of tachycardia. He met sepsis and SIRS criteria. He was bolused with IV fluid, given an initial dose of vancomycin and admitted for further evaluation and treatment. [facility] History Medical History: Reports:: Chronic Obstructive Pulmonary Disease (COPD), Diabetes Mellitus Type 2, Hypertension Denies:: Cancer, Diabetes Mellitus Type 1, MRSA, Seizures *Have you ever received a pneumonia vaccine?: No *Have you received a flu vaccine this season?: No Other Medical History: Reports: Arthritis, Hypothyroidism, Liver Disease. Denies: Blood Transfusion Reaction Laterality Cases: Bilateral: Tonsillectomy, Other Other Surgeries: Yes: Ureter Stent, Other Amputation: No Fractures: Yes - *Social History Smoking Status: Never smoker Tobacco Type: cigarettes # Packs/Day (cigarettes): 0 Alcohol Intake: never Substance Use Type: heroin, amphetamines, opiates, painkillers, methamphetamine, prescription drug *Occupational Status:: disabled Housing: house Household Members: none *Travel in the last 8 weeks: None Family Hx:: Asthma, Cancer, Hyperlipidemia, Hypertension, Alcoholism Review of Systems - Constitutional Reports chills, Reports fatigue, Reports lack of energy, Reports malaise - Eyes Denies change in vision - ENT Denies abnormal hearing, Denies change in voice - *Cardiovascular Reports leg swelling, Reports leg sores, Reports foot swelling, Denies chest pain - *Respiratory Reports wheezing - *Gastrointestinal Denies abdominal pain - *Genitourinary Reports frequent nighttime urination, Reports urinary frequency, Denies difficulty urinating - *Musculoskeletal Reports back pain, Reports limited joint movement, Reports muscle weakness - Integumentary/Breasts Reports lesions, Reports wounds, Denies yellowing of the skin - *Neurologic Reports tingling/numbness/burning sensations, Denies behavioral changes, Denies headache(s), Denies loss of vision, Denies numbness, Denies tingling, Denies weakness - Psychiatric Reports lack of enjoyment - Endocrine Reports increased urination - Hematologic/Lymphatic Denies easy bleeding - Allergic/Immunologic Denies hives Meds Home Medications Medication Instructions Recorded Confirmed Type lisinopril 10 1 tab PO DAILY #90 tab 11/05/20 12/29/20 Rx mg-hydrochlorothiazide 12.5 mg tablet gabapentin 600 mg tablet 600 mg PO QIDP PRN #120 tab 12/08/20 12/29/20 Rx Allergies Allergy/AdvReac Type Severity Reaction Status Date / Time codeine Allergy Severe Anaphylaxis Verified 12/29/20 11:07 guaifenesin [From Mucinex] Allergy Severe SWELLS Verified 12/29/20 11:07 ketorolac [From Toradol] Allergy Severe Difficulty Verified 12/29/20 11:07 Swallowing Exam Vital signs and Labs for Last 24 Hours: Temp Pulse Resp BP Pulse Ox 98.9 F 83 20 142/82 H 100 12/29/20 16:01 12/29/20 16:01 12/29/20 16:01 12/29/20 16:01 12/29/20 16:01 Laboratory Results - last 24 hr 12/29/20 10:42: WBC 12.2 H, RBC 3.99 L, Hgb 12.4 L, Hct 36.8 L, MCV 92.4, MCH 31.1, MCHC 33.7, RDW 15.7, Plt Count 64 L, MPV 9.2, Neut % (Auto) 86.0 H, Lymph % (Auto) 9.6 L, [place] % (Auto) 3.8, Eos % (Auto) 0.3, Baso % (Auto) 0.3, Neut # (Auto) 10.5 H, Lymph # (Auto) 1.2, [place] # (Auto) 0.5, Eos # (Auto) 0.0, Baso # (Auto) 0.0, Total Counted 100, Neutrophils % (Manual) 83 H, Lymphocytes % (Manual) 15, Monocytes % (Manual) 2
--- NOTE | 2020-12-29 19:26 | PC.NURSE ---
No acute changes since pt arrived to floor at this time. Meds given per mar and vanc infusing at this time. CB in reach.
--- NOTE | 2020-12-29 19:32 | PC.NURSE ---
Pics from camera unable to upload, they are numbers [id number].
--- NOTE | 2020-12-29 19:57 | PC.NURSE ---
CRE swab sent to lab by this RN, per protocol.
--- NOTE | 2020-12-30 03:35 | PC.NURSE ---
Pt has been awake this shift. Has c/o discomfort x2. Medicated per oct. BLE assessed and DSG was placed on (R) foot and LLE to prevent additional infection. One area noted to top of (R) foot. 3 areas noted to LLE. VSS. Pt remains on RA. Lungs noted to have scattered wheezing. BS active. No other concerns. Will continue to monitor.
[2020-12-30 04:00] VITALS: BP 152/76; PULSE 81; RESP 16; TEMP 36.8; O2SAT 98
[2020-12-30 05:00] VITALS: BMI 41.3
[2020-12-30 07:47] VITALS: BP 147/102; PULSE 88; RESP 20; TEMP 36.6; O2SAT 98
[2020-12-30 07:56] LABS: Basophils % 0.4 % (0.1-2.0); Eosinophils # 0.2 K/mm3 (0.0-0.4); Eosinophils % 4.2 % (0.1-12.0); Hematocrit 36.8 % (42.0-52.0); Lymphocytes # 0.9 K/mm3 (0.7-4.5); Lymphocytes % 16.3 % (10-50); Mean Corpuscular HGB Conc 32.7 g/dL (31.8-35.4); Mean Corpuscular Hemoglobin 31.2 pg (27.0-31.2); Mean Corpuscular Volume 95.5 fl (80-94); Mean Platelet Volume 9.2 fl (7.4-10.4); Monocytes # 0.4 K/mm3 (0.1-1.0); Monocytes % 6.4 % (1.7-9.3); Neutrophils # 4.1 K/mm3 (1.8-7.8); Neutrophils % 72.7 % (37.0-80.0); Platelet Count 53 K/mm3 (142-424); Red Blood Count 3.85 M/mm3 (4.60-6.20); Red Cell Distribution Width 15.7 % (11.5-17.5); White Blood Count 5.6 K/mm3 (4.8-10.8)
[2020-12-30 08:04] LABS: Anion Gap 3.6 mEq/L (5-15); Blood Urea Nitrogen 14 mg/dl (9-20); Calcium 7.7 mg/dl (8.4-10.2); Carbon Dioxide 26 mmol/L (22.0-30.0); Chloride 110 mmol/L (98-107); Creatinine Clearance Estimated 126 mL/min (50-200); Estimated Glomerular Filt Rate 121 ml/min (>60); GFR (African American) 146 ML/MIN (>60); Glucose 95 mg/dl (74-100); Potassium 3.6 mmoL/L (3.5-5.1); Sodium 136 mmol/L (136-145)
[2020-12-30 08:26] LABS: Hemoglobin A1C 4.5 % (4.0-6.0)
--- NOTE | 2020-12-30 08:54 | HMH.ACPN2 ---
Internal Medicine - PN: Subj *Date: 12/30/20 *Time: 11:25 Interval history: 45-year-old male patient is sitting up in bed resting quietly, he reports wounds to bilateral lower extremities are feeling better today than yesterday. Oxygen saturation 98% on room air. Exam Vital signs and Labs for Last 24 Hours: Temp Pulse Resp BP Pulse Ox 97.8 F 88 20 147/102 H 98 12/30/20 07:47 12/30/20 07:47 12/30/20 07:47 12/30/20 07:47 12/30/20 07:47 Laboratory Results - last 24 hr 12/29/20 10:42: WBC 12.2 H, RBC 3.99 L, Hgb 12.4 L, Hct 36.8 L, MCV 92.4, MCH 31.1, MCHC 33.7, RDW 15.7, Plt Count 64 L, MPV 9.2, Neut % (Auto) 86.0 H, Lymph % (Auto) 9.6 L, [place] % (Auto) 3.8, Eos % (Auto) 0.3, Baso % (Auto) 0.3, Neut # (Auto) 10.5 H, Lymph # (Auto) 1.2, [place] # (Auto) 0.5, Eos # (Auto) 0.0, Baso # (Auto) 0.0, Total Counted 100, Neutrophils % (Manual) 83 H, Lymphocytes % (Manual) 15, Monocytes % (Manual) 2, Platelet Estimate Slight decrease, Macrocytosis 1+, ESR 35 H 12/29/20 10:42: Sodium 133 L, Potassium 3.0 L, Chloride 103, Carbon Dioxide 24, Anion Gap 9.0, BUN 9, Creatinine 0.70, Estimated Creat Clear 218, Estimated GFR 121, Est GFR ( Amer) 146, Glucose 146 H, Calcium 8.1 L, Total Bilirubin 2.5 H, AST 48, ALT 38, Alkaline Phosphatase 158 H, Troponin I 0.04 H, C-Reactive Protein 41.5 H, Total Protein 6.1 L, Albumin 2.8 L, Globulin 3.3 H, Albumin/Globulin Ratio 0.8 L 12/29/20 10:42: NT-Pro-B Natriuret Pep 203 H 12/29/20 10:42: Lactate 1.1 12/29/20 10:45: Urine Color Yellow, Urine Appearance Clear, Urine pH 6.5, Ur Specific [place] 1.015, Urine Protein Negative, Urine Glucose (UA) Negative, Urine Ketones Negative, Urine Blood Trace-i, Urine Nitrate Negative, Urine Bilirubin Negative, Urine Urobilinogen 1.0, Ur Leukocyte Esterase Negative, Urine RBC Occasional, Urine WBC None, Ur Squamous Epith Cells None, Urine Bacteria None 12/29/20 15:25: Troponin I 0.03 12/30/20 07:08: WBC 5.6 D, RBC 3.85 L, Hgb 12.0 L, Hct 36.8 L, MCV 95.5 H, MCH 31.2, MCHC 32.7, RDW 15.7, Plt Count 53 L, MPV 9.2, Neut % (Auto) 72.7, Lymph % (Auto) 16.3, [place] % (Auto) 6.4, Eos % (Auto) 4.2, Baso % (Auto) 0.4, Neut # (Auto) 4.1, Lymph # (Auto) 0.9, [place] # (Auto) 0.4, Eos # (Auto) 0.2, Baso # (Auto) 0.0 12/30/20 07:08: Sodium 136, Potassium 3.6, Chloride 110 H, Carbon Dioxide 26, Anion Gap 3.6 L, BUN 14 D, Creatinine 0.70, Estimated Creat Clear 126, Estimated GFR 121, Est GFR ( Amer) 146, Glucose 95 D, Calcium 7.7 L 12/30/20 07:08: Hemoglobin A1c 4.5 I & O for Last 24 hours: Intake & Output 12/27/20 12/28/20 12/29/20 12/30/20 23:59 23:59 23:59 23:59 Intake Total 360 / 810 450 / 450 Output Total 300 / 300 625 / 625 Balance 60 / 510 -175 / -175 Weight 277 lb 3 oz 279 lb 7 oz Microbiology Reports for the Last 24 Hours: Microbiology 12/29/20 11:21 Nasopharyngeal Coronavirus COVID-19 PCR - Final - Constitutional no acute distress, morbidly obese - *Routine HEENT Exam Head: Present: normocephalic Eye: Present: EOMI ENT: Present: mucous membranes moist - *Routine Neck Exam Present: trachea midline. Absent: tracheal deviation - *Routine Respiratory Exam Present: wheezes. Absent: accessory muscle use - *Routine Cardiovascular Exam Present: RRR - *Routine Abdominal Exam Present: soft, normoactive bowel sounds. Absent: tenderness, firm - *Routine Extremities Exam Present: edema, pulses intact. Absent: cyanosis, clubbing, calf tenderness - *Routine Skin Exam Present: warm, lesions, wounds. Absent: intact Comments: Wounds to right foot with redness, warmth, edema redness greater than half the foot Wounds noted to left valero with redness, warmth, edema. redness is entire circumference of left lower extremity for greater than half the leg - *Routine Neurological Exam Present: alert, moving all extremities. Absent: motor deficit, pronator drift - Routine Psychiatric Exam Present: normal affect, normal thought process.
--- NOTE | 2020-12-30 09:25 | CT_ITS ---
PROCEDURE: CT FOOT RT WO CON CLINICAL HISTORY: Osteo Wound/nonhealing wounds, dorsal aspect of the foot COMPARISON: CR XR FOOT RT MIN 3V from 10/16/2020 TECHNIQUE: Axial images obtained with sagittal and coronal reformats. All CT scans at the facility use one or more dose reduction, viz: automated exposure control, ma/kV adjustment per patient size (including targeted exams where dose is matched to indication, i.e. head), or iterative reconstruction technique. FINDINGS: There is diffuse soft tissue swelling along the dorsal aspect of the foot most prominent at the distal metatarsal region and metatarsophalangeal junction. No obvious loculated fluid collection. Abscess evaluation is limited without IV contrast. The soft tissue swelling extends to the deep fascial spaces along the dorsal aspect of the 2nd 3rd and 4th metatarsals. There is also some soft tissue swelling along the plantar aspect the 2nd 3rd and 4th metatarsals. No bony destructive process evident that would suggest osteomyelitis. There is a small metallic foreign body present within the soft tissues between the proximal aspect of the proximal phalanx of the 2nd and 3rd toe. Measures 6 mm in length and 1 mm in with. Could represent a broken off portion of a needle. No fracture or dislocation apparent. IMPRESSION: 1. No obvious osteomyelitis. 2. Diffuse soft tissue swelling consistent with cellulitis most prominent in the dorsal aspect of the foot at the 2nd 3rd and 4th metatarsophalangeal junction extending to the deep fascial spaces at this region. No obvious abscess however, abscess evaluation is limited without IV contrast. 3. 6 mm metallic foreign body between the proximal aspect of the proximal phalanges of the 2nd and 3rd toe. Dictated by: Jonnathan Meredith MD 12/30/2020 10:30 Jonnathan Meredith MD in [place] 12/30/2020 10:30
--- NOTE | 2020-12-30 11:10 | HMH.PHAINT ---
USED LIST FROM CLINIC PHARMACY TO VERIFY HOME MEDICAITON LIST
[2020-12-30 11:28] LABS: Vancomycin,Trough 18.5 ug/mL (5.0-10.0)
--- NOTE | 2020-12-30 11:42 | SW/DCPLANNER ---
Addendum entered by Sheri Suarez 12/31/20 11:21: I have updated Trinidad with [facility] regarding patient discharging AMA. Original Note: This patient currently receives services from [facility] per Debbie with [facility]. Debbie stated that patient is receiving penitentiary services. I will follow back up with Debbie once patient is medically stable for discharge. Discharge date is unknown at this time.
--- NOTE | 2020-12-30 11:43 | HMH.PHACONS ---
- Pharmacy Consult Date: 12/30/20 Time: 11:43 Referring provider: DR. LEBLANC Reason for Consult:: VANCOMYCIN TROUGH LEVEL Allergies and ADEs:: Allergies Allergy/AdvReac Type Severity Reaction Status Date / Time codeine Allergy Severe Anaphylaxis Verified 12/29/20 11:07 guaifenesin [From Mucinex] Allergy Severe SWELLS Verified 12/29/20 11:07 ketorolac [From Toradol] Allergy Severe Difficulty Verified 12/29/20 11:07 Swallowing Home Medications:: Home Medications Medication Instructions Recorded Confirmed Type lisinopril 10 1 tab PO DAILY #90 tab 11/05/20 12/30/20 Rx mg-hydrochlorothiazide 12.5 mg tablet gabapentin 600 mg tablet 600 mg PO QIDP PRN #120 tab 12/08/20 12/29/20 Rx Collagenase Clostridium Hist. 1 applicatio TP DAILY 12/30/20 12/30/20 History [Santyl Ointment 30gm] Fluticasone/Umeclidin/Vilanter 1 puff IH DAILY 12/30/20 12/30/20 History [Trelegy Ellipta 200-62.5-25] Gentamicin Sulfate 1 applicatio TP DAILY 12/30/20 12/30/20 History Mupirocin Calcium [Mupirocin 2% 1 applicatio TP BID 12/30/20 12/30/20 History Cream 15gm] Height: 1.75 m Weight: 126.751 kg Laboratory Results:: Laboratory Results - last 24 hr 12/29/20 10:42: ESR 35 H 12/29/20 10:45: Urine Color Yellow, Urine Appearance Clear, Urine pH 6.5, Ur Specific [place] 1.015, Urine Protein Negative, Urine Glucose (UA) Negative, Urine Ketones Negative, Urine Blood Trace-i, Urine Nitrate Negative, Urine Bilirubin Negative, Urine Urobilinogen 1.0, Ur Leukocyte Esterase Negative, Urine RBC Occasional, Urine WBC None, Ur Squamous Epith Cells None, Urine Bacteria None 12/29/20 15:25: Troponin I 0.03 12/30/20 07:08: WBC 5.6 D, RBC 3.85 L, Hgb 12.0 L, Hct 36.8 L, MCV 95.5 H, MCH 31.2, MCHC 32.7, RDW 15.7, Plt Count 53 L, MPV 9.2, Neut % (Auto) 72.7, Lymph % (Auto) 16.3, [place] % (Auto) 6.4, Eos % (Auto) 4.2, Baso % (Auto) 0.4, Neut # (Auto) 4.1, Lymph # (Auto) 0.9, [place] # (Auto) 0.4, Eos # (Auto) 0.2, Baso # (Auto) 0.0 12/30/20 07:08: Sodium 136, Potassium 3.6, Chloride 110 H, Carbon Dioxide 26, Anion Gap 3.6 L, BUN 14 D, Creatinine 0.70, Estimated Creat Clear 126, Estimated GFR 121, Est GFR ( Amer) 146, Glucose 95 D, Calcium 7.7 L 12/30/20 07:08: Hemoglobin A1c 4.5 12/30/20 10:45: Vancomycin Trough 18.5 H Medical History: Reports:: Chronic Obstructive Pulmonary Disease (COPD), Diabetes Mellitus Type 2, Hypertension Denies:: Cancer, Diabetes Mellitus Type 1, MRSA, Seizures Assessment and Plan (1) Lower extremity cellulitis Status: Acute Qualifiers: Laterality: left Qualified Code(s): L03.116 - Cellulitis of left lower limb Category: Medical Code(s): L03.119 - Cellulitis of unspecified part of limb (2) Sepsis Status: Acute Qualifiers: Sepsis type: sepsis due to unspecified organism Sepsis acute organ dysfunction status: without acute organ dysfunction Qualified Code(s): A41.9 - Sepsis, unspecified organism Category: Medical Code(s): A41.9 - Sepsis, unspecified organism (3) Abscess of right foot Status: Acute Category: Medical Code(s): L02.611 - Cutaneous abscess of right foot (4) Asthma Status: Chronic Qualifiers: Asthma severity: moderate Asthma persistence: persistent Asthma complication type: uncomplicated Qualified Code(s): J45.40 - Moderate persistent asthma, uncomplicated Category: Medical Code(s): J45.909 - Unspecified asthma, uncomplicated (5) Bilateral lower extremity edema Status: Chronic Category: Medical Code(s): R60.0 - Localized edema (6) Bilateral lower leg cellulitis Status: Acute Category: Medical Code(s): L03.116 - Cellulitis of left lower limb; L03.115 - Cellulitis of right lower limb (7) Cellulitis Status: Acute Qualifiers: Site of cellulitis: extremity Site of cellulitis of extremity: lower extremity Laterality: right Qualified Code(s): L03.115 - Cellulitis of right lower limb Category: Medical Code(s): L03.90 -
[2020-12-30 15:19] VITALS: BP 129/72; PULSE 93; RESP 20; TEMP 36.6; O2SAT 95
--- NOTE | 2020-12-30 16:25 | HMH.ORTHOCON ---
*Admission Date: 12/29/20 *Reason for consult:: Cellulitis right foot, left leg *History of present illness: Patient is a 45-year-old white male known to me from the office, who has had multiple surgeries on his right foot and left anterior calf. He has recurrent and refractory cellulitis without caring a diagnosis of diabetes. His clinical course has been 1 marked with recurrent debridement, surgery, and poor wound healing. He is a current smoker. ELVIS studies last summer were 1.2 bilaterally. Patient presented to the emergency room with increasing pain, history of fever, history of tachycardia. He met sepsis and SIRS criteria. He was bolused with IV fluid, given an initial dose of vancomycin and admitted for further evaluation and treatment. [facility] History Medical History: Reports:: Chronic Obstructive Pulmonary Disease (COPD), Diabetes Mellitus Type 2, Hypertension Denies:: Cancer, Diabetes Mellitus Type 1, MRSA, Seizures *Have you ever received a pneumonia vaccine?: No *Have you received a flu vaccine this season?: No Other Medical History: Reports: Arthritis, Hypothyroidism, Liver Disease. Denies: Blood Transfusion Reaction Laterality Cases: Bilateral: Tonsillectomy, Other Other Surgeries: Yes: Ureter Stent, Other Amputation: No Fractures: Yes - *Social History Smoking Status: Never smoker Tobacco Type: cigarettes # Packs/Day (cigarettes): 0 Alcohol Intake: never Substance Use Type: heroin, amphetamines, opiates, painkillers, methamphetamine, prescription drug *Occupational Status:: disabled Housing: house Household Members: none *Travel in the last 8 weeks: None Family Hx:: Asthma, Cancer, Hyperlipidemia, Hypertension, Alcoholism *Podiatry consult-patient is a regular patient of ours in podiatry. Patient had an office appointment scheduled for 12/28/2020 at 1330 and he did not show for this appointment. The last time we seen the patient in the office was on 12/01/2020. The patient had swelling then at this appointment as well the left being greater than the right with clear drainage. He did get a Unna boot applied to the left lower extremity at that time. The patient is resting in bed the nurse states he was just given medication and is now asleep. Dimitri from wound care had already seen the patient and dressed his right foot and left lower extremity. I will plan to see the patient again in the morning before clinic to assess the wounds and do a fresh dressing change at that time. I did discuss with the nurse that if she could premedicate him prior to the dressing changes would be greatly appreciated. [facility] History I have reviewed the patient's past medical history: Yes Medical History: Reports:: Chronic Obstructive Pulmonary Disease (COPD), Diabetes Mellitus Type 2, Hypertension Denies:: Cancer, Diabetes Mellitus Type 1, MRSA, Seizures *Have you ever received a pneumonia vaccine?: No *Have you received a flu vaccine this season?: No Other Medical History: Reports: Arthritis, Hypothyroidism, Liver Disease. Denies: Blood Transfusion Reaction Laterality Cases: Bilateral: Tonsillectomy, Other Other Surgeries: Yes: Ureter Stent, Other Amputation: No Fractures: Yes - *Social History Smoking Status: Never smoker Tobacco Type: cigarettes # Packs/Day (cigarettes): 0 Alcohol Intake: never Substance Use Type: heroin, amphetamines, opiates, painkillers, methamphetamine, prescription drug *Occupational Status:: disabled Housing: house Household Members: none *Travel in the last 8 weeks: None Family Hx:: Asthma, Cancer, Hyperlipidemia, Hypertension, Alcoholism Review of Systems - Constitutional Reports daytime sleepiness (Patient medicated prior to arrival) - Eyes Denies change in vision - ENT Denies abnormal hearing - *Cardiovascular Denies shortness of breath - *Respiratory Denies shortness of breath - *Gastrointestinal Denies abdominal pain - *Genitourinary Denies difficulty urinating - *Musculoskeletal
[2020-12-30 16:30] VITALS: BMI 41.4
--- NOTE | 2020-12-30 18:23 | PC.NURSE ---
Pt has slept most of this shift. New order for PRN dilaudid placed this shift for extreme pain and pre-medicate for dressing changes only. Audible wheezes heard along w/ inspiratory and expiratory wheezing per auscultation. Pt continues on RA. Dressing change performed by DANIEL Mosley this shift. No other acute changes or complaints at this time. Will continue to monitor.
--- NOTE | 2020-12-30 18:47 | PC.WOUNDNOTE ---
Ulcers on LLE red, yellow in color serosang drainage noted
--- NOTE | 2020-12-30 18:49 | PC.WOUNDNOTE ---
ulcer on rt foot mostly yellow in color, w/ small areas of red
--- NOTE | 2020-12-30 19:35 | PC.NURSE ---
Report received from Ludmila Patino RN. This nurse went into room to greet and assess pt. Pt spoke inappropriately with this nurse. This nurse left room and the decision was made for care to be transferred to another nurse. Day shift nurse was still on floor. Report was given by this nurse and Ludmila Patino to Bert Bacon RN.
[2020-12-30 20:00] VITALS: BP 171/85; PULSE 108; RESP 18; TEMP 37; O2SAT 95
--- NOTE | 2020-12-30 21:41 | PC.NURSE ---
Recieved report from Ludmila benavides RN and Val Gandara RN, pt had been inappropriate with previous nurse. After introducing myself to patient and explaining the staffing change, pt understood the situation and was ok with the change. After about 30 min pt decided he wanted to sign out AMA. cold storage supervisor was notified, as well as MD. AMA was signed, iv was d/c, and the possible consequences of leaving AMA were explained. pt was accompanied out of hospital by staff via wheelchair.
--- NOTE | 2020-12-31 10:14 | HMH.DCSUM ---
General - General Admission date:: 12/29/20 Discharge date: 12/30/20 HPI HPI: Patient is a 45-year-old white male known to me from the office, who has had multiple surgeries on his right foot and left anterior calf. He has recurrent and refractory cellulitis without caring a diagnosis of diabetes. His clinical course has been 1 marked with recurrent debridement, surgery, and poor wound healing. He is a current smoker. ELVIS studies last summer were 1.2 bilaterally. Patient presented to the emergency room with increasing pain, history of fever, history of tachycardia. He met sepsis and SIRS criteria. He was bolused with IV fluid, given an initial dose of vancomycin and admitted for further evaluation and treatment. Hospital Course Hospital Course: 45-year-old white male, who has had multiple surgeries on his right foot and left anterior calf. He has recurrent and refractory cellulitis without caring a diagnosis of diabetes. His clinical course has been 1 marked with recurrent debridement, surgery, and poor wound healing. He is a current smoker. ELVIS studies last summer were 1.2 bilaterally. Patient presented to the emergency room with increasing pain, history of fever, history of tachycardia. He met sepsis and SIRS criteria. He was bolused with IV fluid, given an initial dose of vancomycin and admitted for further evaluation and treatment. 12/29/20 CXR: IMPRESSION: Slight increased density in the right lower lobe which could be due to overlying soft tissue attenuation versus right lower lobe infiltrate. Upright PA and lateral chest may provide further evaluation. Dictated by: Jonnathan Meredith 12/30/[address]: FINDINGS: There is diffuse soft tissue swelling along the dorsal aspect of the foot most prominent at the distal metatarsal region and metatarsophalangeal junction. No obvious loculated fluid collection. Abscess evaluation is limited without IV contrast. The soft tissue swelling extends to the deep fascial spaces along the dorsal aspect of the 2nd 3rd and 4th metatarsals. There is also some soft tissue swelling along the plantar aspect the 2nd 3rd and 4th metatarsals. No bony destructive process evident that would suggest osteomyelitis. There is a small metallic foreign body present within the soft tissues between the proximal aspect of the proximal phalanx of the 2nd and 3rd toe. Measures 6 mm in length and 1 mm in with. Could represent a broken off portion of a needle. No fracture or dislocation apparent. IMPRESSION: 1. No obvious osteomyelitis. 2. Diffuse soft tissue swelling consistent with cellulitis most prominent in the dorsal aspect of the foot at the 2nd 3rd and 4th metatarsophalangeal junction extending to the deep fascial spaces at this region. No obvious abscess however, abscess evaluation is limited without IV contrast. 3. 6 mm metallic foreign body between the proximal aspect of the proximal phalanges of the 2nd and 3rd toe. Dictated by: Jonnathan Meredith MD Podiatry has seen and recommends: 1. Dressings was changed today by PT/ Wound care. 2-I will round in the AM and change dressing and address the wounds then. 3. Patient to continue with IV antibiotics per PCP while inpatient 4. Protected WB in short fracture boot or post op shoe 5. As far as Podiatry's standpoint the patient will not require any surgery at this time due to the CT confirming no signs of osteomyelitis. 45-year-old male patient became upset during the evening requested to sign out AMA. salon supervisor was notified and on-call physician was paged. Possible medical outcomes and consequences of leaving AMA discussed with patient, he verbalizes understanding still requested to leave AMA. He was escorted out of the hospital via wheelchair instructed to call primary care in the morning Objective Vital signs: Temp Pulse Resp BP Pulse Ox 98.6 F 108 H 18
== END 2020-12-30 20:28 | disposition left against medical advice (07) ==
LOC: ER 11:20 → 2ND 12:56
PROVIDERS: Admitting Provider Family Medicine; Emergency Provider Emergency Medicine; PCP Family Medicine; Visit Provider Family Medicine
DX: A41.9 Sepsis, unspecified organism (principal); L03.116 Cellulitis of left lower limb; J44.9 Chronic obstructive pulmonary disease, unspecified; I10 Essential (primary) hypertension; M19.90 Unspecified osteoarthritis, unspecified site; Z68.42 Body mass index [BMI] 45.0-49.9, adult; I25.2 Old myocardial infarction; Z88.5 Allergy status to narcotic agent; F17.200 Nicotine dependence, unspecified, uncomplicated; L02.611 Cutaneous abscess of right foot; L03.115 Cellulitis of right lower limb; J45.909 Unspecified asthma, uncomplicated; L97.519 Non-pressure chronic ulcer of other part of right foot with unspecified severity; I87.8 Other specified disorders of veins; G89.29 Other chronic pain; E66.01 Morbid (severe) obesity due to excess calories; L97.922 Non-pressure chronic ulcer of unspecified part of left lower leg with fat layer exposed; L97.513 Non-pressure chronic ulcer of other part of right foot with necrosis of muscle; Z91.19 Patient's noncompliance with other medical treatment and regimen; I86.8 Varicose veins of other specified sites
CPT/HCPCS: 36415; 71045; 73700; 80048; 80053; 80202; 81001; 83036; 83605; 83880; 84484; 85007; 85025; 85651; 86140; 87040; 87081; 96365; 96366; 96375; 99203; G0378; G0463; J2405; J2543; J3370; U0003

== ENCOUNTER 2021-01-07 10:15 | Observation (INO) | payer MEDICARE, OTHER, SELFPAY ==
[2021-01-07] VITALS (10 sets, daily range): BP systolic 137–170; BP diastolic 68–89; PULSE 74–92; RESP 16–20; TEMP 36.6–37.2; O2SAT 94–100; BMI 39.9; BMI 41.3
--- NOTE | 2021-01-07 10:37 | XR_ITS ---
PROCEDURE: XR TIBIA FIBULA LT 2V CLINICAL INDICATION: infection COMPARISON: CR XR TIBIA FIBULA RT 2V from 01/17/2020 CR XR TIBIA FIBULA RT 2V from 03/05/2020 CR XR TIBIA FIBULA LT 2V from 03/05/2020 CR XR TIBIA FIBULA LT 2V from 10/16/2020 FINDINGS: There is mild diffuse subcutaneous soft tissue swelling. No fracture or dislocation. No lytic or blastic change. The joint spaces are well-preserved. No significant degenerative/arthritic changes. No erosive changes evident. Other findings:None. IMPRESSION: Soft tissue swelling otherwise negative Dictated by: Jonnathan Meredith MD 01/07/2021 12:21 Jonnathan Meredith MD in [facility] 01/07/2021 12:21
[2021-01-07 10:54] LABS: Basophils % 0.4 % (0.1-2.0); Eosinophils # 0.1 K/mm3 (0.0-0.4); Eosinophils % 2.1 % (0.1-12.0); Hematocrit 33.3 % (42.0-52.0); Hemoglobin 11.3 g/dL (14.1-18.0); Lymphocytes # 0.6 K/mm3 (0.7-4.5); Lymphocytes % 11.5 % (10-50); Mean Corpuscular Hemoglobin 31.9 pg (27.0-31.2); Mean Corpuscular Volume 93.9 fl (80-94); Mean Platelet Volume 10.1 fl (7.4-10.4); Monocytes # 0.2 K/mm3 (0.1-1.0); Monocytes % 3.4 % (1.7-9.3); Neutrophils # 4.1 K/mm3 (1.8-7.8); Neutrophils % 82.5 % (37.0-80.0); Platelet Count 87 K/mm3 (142-424); Red Blood Count 3.55 M/mm3 (4.60-6.20); Red Cell Distribution Width 15.8 % (11.5-17.5); White Blood Count 4.9 K/mm3 (4.8-10.8)
--- NOTE | 2021-01-07 10:56 | HMH.EDGENADL ---
ED Disposition Clinical Impression: Venous ulcer of left leg Cellulitis of lower extremity Qualifiers: Laterality: left Qualified Code(s): L03.116 - Cellulitis of left lower limb Disposition: Admitted as Observation Condition on Discharge: Fair - Critical Care Critical Care Time: No Attestation: On 01/07/21, the high probability of a clinically significant, sudden or life threatening deterioration of the following system(s) required my full and direct attention, intervention and personal management. The time I documented below is in addition to time spent performing reported procedures but includes the following listed in this critical care notation. Medical Decision Making - Medical Records Medical records reviewed: Yes: I reviewed the patient's medical records. MR Comment: The discharge summary from 12/29/2020 admission. - Joshua Inquiry Pt receiving controlled substance: No Vital Signs: 01/07/21 10:16 01/07/21 10:31 01/07/21 11:01 Temperature 98 F Temperature Source Oral Pulse Rate 86 889 H Pulse Rate [Radial] 89 Respiratory Rate 16 Blood Pressure 139/71 137/68 Blood Pressure [Right Arm] 139/71 Blood Pressure Mean 100 91 Blood Pressure Mean [Right Arm] 93 Blood Pressure Position [Right Arm] Sitting 02 Sat by Pulse Oximetry 98 100 100 Oxygen Delivery Method Room Air - Lab Data Lab Results 01/07/21 10:37: WBC 4.9, RBC 3.55 L, Hgb 11.3 L, Hct 33.3 L, MCV 93.9, MCH 31.9 H, MCHC 34.0, RDW 15.8, Plt Count 87 L, MPV 10.1, Neut % (Auto) 82.5 H, Lymph % (Auto) 11.5, Rowan % (Auto) 3.4, Eos % (Auto) 2.1, Baso % (Auto) 0.4, Neut # (Auto) 4.1, Lymph # (Auto) 0.6 L, Rowan # (Auto) 0.2, Eos # (Auto) 0.1, Baso # (Auto) 0.0 01/07/21 10:37: Sodium 135 L, Potassium 3.2 L, Chloride 106, Carbon Dioxide 27, Anion Gap 5.2, BUN 9, Creatinine 0.70, Estimated Creat Clear 226, Estimated GFR 121, Est GFR ( Amer) 146, Glucose 197 H, Calcium 7.6 L, Total Bilirubin 2.7 H, AST 43, ALT 26, Alkaline Phosphatase 114, Total Protein 6.0 L, Albumin 2.6 L, Globulin 3.4 H, Albumin/Globulin Ratio 0.8 L 01/07/21 10:37: Lactate 2.0 01/07/21 10:37: ESR 63 H 01/07/21 10:37: C-Reactive Protein 58.6 H, Procalcitonin 0.388 Result diagrams: 01/07/21 10:37 01/07/21 10:37 Orders (Tests/Meds): ED MEDICATIONS Generic Name Dose Route Start Last Admin Trade Name Freq PRN Reason Stop Dose Admin Piperacillin Sod/Tazobactam 50 mls @ 100 mls/hr 01/07/21 11:00 01/07/21 11:25 Sod 3.375 gm/ Sodium Chloride IV 01/21/21 10:59 100 mls/hr Q6H CJ Administration Protocol Vancomycin HCl 2,250 mg/ 250 mls @ 125 mls/hr 01/07/21 12:00 Sodium Chloride IV 01/21/21 11:59 Q8H CJ Discontinued Medications Generic Name Dose Route Start Last Admin Trade Name Freq PRN Reason Stop Dose Admin Miscellaneous 1 each 01/07/21 11:15 01/07/21 11:26 Vancomycin Consult Request * 02/06/21 11:14 1 each CONSULT PHARMACY CJ Administration ORDERS Category Date Time Status Consult to Podiatry [CONS] Routine Cons 01/07/21 11:32 Active XR tibia fibula LT 2V Stat Exams 01/07/21 10:37 Taken Blood Culture Stat Micro 01/07/21 10:36 Received - Physician Consults Physician Consulted: Dr. Stanton Time: 11:47 Reason -: Admission Comment/Response: Agrees to admit the patient to the hospital. We discussed the patient's clinical information, including history, exam, laboratory and radiology results and ED course. Per hospital procedure, I will write temporary bridge inpatient orders on the patient. Specific orders requested by the admitting physician: Continue antibiotics. Consult Dr. Karimi. General Adult HPI - General Chief complaint: PAIN Stated complaint: both feet pain and possibly infected Time Seen by Provider: 01/07/21 10:58 Mode of Arrival: Ambulatory Limitations: No Limitations Description of Symptoms (Recalled from ER Triage Doc. by RN): to ed per pvt car with c/o redness, swelling, drain
[2021-01-07 11:02] LABS: Alanine Aminotransferase 26 U/L (12-78); Albumin Level 2.6 g/dl (3.5-5.0); Albumin/Globulin Ratio 0.8 (1.1-1.8); Alkaline Phosphatase 114 U/L (38-126); Anion Gap 5.2 mEq/L (5-15); Aspartate Amino Transferase 43 U/L (17-59); Bilirubin,Total 2.7 mg/dl (0.2-1.3); Blood Urea Nitrogen 9 mg/dl (9-20); Calcium 7.6 mg/dl (8.4-10.2); Carbon Dioxide 27 mmol/L (22.0-30.0); Chloride 106 mmol/L (98-107); Creatinine Clearance Estimated 226 mL/min (50-200); Estimated Glomerular Filt Rate 121 ml/min (>60); GFR (African American) 146 ML/MIN (>60); Globulin 3.4 g/dL (1.3-3.2); Glucose 197 mg/dl (74-100); Potassium 3.2 mmoL/L (3.5-5.1); Sodium 135 mmol/L (136-145)
--- NOTE | 2021-01-07 11:17 | PC.NURSE ---
Called Dr Castelan for consult with Dr Benedict
--- NOTE | 2021-01-07 11:24 | P.CONPHA_ITS ---
- Pharmacy Consult Date: 01/07/21 Time: 11:24 Referring provider: DR. REINOSO Reason for Consult:: VANCOMYCIN DOSING Allergies and ADEs:: Allergies Allergy/AdvReac Type Severity Reaction Status Date / Time codeine Allergy Severe Anaphylaxis Verified 12/29/20 11:07 guaifenesin [From Mucinex] Allergy Severe SWELLS Verified 12/29/20 11:07 ketorolac [From Toradol] Allergy Severe Difficulty Verified 12/29/20 11:07 Swallowing Home Medications:: Home Medications Medication Instructions Recorded Confirmed Type lisinopril 10 1 tab PO DAILY #90 tab 11/05/20 12/30/20 Rx mg-hydrochlorothiazide 12.5 mg tablet gabapentin 600 mg tablet 600 mg PO QIDP PRN #120 tab 12/08/20 12/29/20 Rx Collagenase Clostridium Hist. 1 applicatio TP DAILY 12/30/20 12/30/20 History [Santyl Ointment 30gm] Fluticasone/Umeclidin/Vilanter 1 puff IH DAILY 12/30/20 12/30/20 History [Trelegy Ellipta 200-62.5-25] Gentamicin Sulfate 1 applicatio TP DAILY 12/30/20 12/30/20 History Mupirocin Calcium [Mupirocin 2% 1 applicatio TP BID 12/30/20 12/30/20 History Cream 15gm] Sulfamethoxazole/Trimethoprim 1 each PO BID 10 Days #20 tab 12/31/20 Rx [Bactrim DS tablet] cephALEXin [Keflex 750mg Cap] 750 mg PO Q12H 10 Days #20 cap 12/31/20 Rx Height: 1.75 m Weight: 122.47 kg Laboratory Results:: Laboratory Results - last 24 hr 01/07/21 10:37: WBC 4.9, RBC 3.55 L, Hgb 11.3 L, Hct 33.3 L, MCV 93.9, MCH 31.9 H, MCHC 34.0, RDW 15.8, Plt Count 87 L, MPV 10.1, Neut % (Auto) 82.5 H, Lymph % (Auto) 11.5, Kingman % (Auto) 3.4, Eos % (Auto) 2.1, Baso % (Auto) 0.4, Neut # (Auto) 4.1, Lymph # (Auto) 0.6 L, Kingman # (Auto) 0.2, Eos # (Auto) 0.1, Baso # (Auto) 0.0 01/07/21 10:37: Sodium 135 L, Potassium 3.2 L, Chloride 106, Carbon Dioxide 27, Anion Gap 5.2, BUN 9, Creatinine 0.70, Estimated Creat Clear 226, Estimated GFR 121, Est GFR ( Amer) 146, Glucose 197 H, Calcium 7.6 L, Total Bilirubin 2.7 H, AST 43, ALT 26, Alkaline Phosphatase 114, Total Protein 6.0 L, Albumin 2.6 L, Globulin 3.4 H, Albumin/Globulin Ratio 0.8 L 01/07/21 10:37: Lactate 2.0 Medical History: Reports:: Chronic Obstructive Pulmonary Disease (COPD), Diabetes Mellitus Type 2, Hypertension Denies:: Cancer, Diabetes Mellitus Type 1, MRSA, Seizures Assessment and Plan - Assessment and plan all Dx Assessment and Plan for all problems:: Age: 45 yo Serum creatinine: 0.7 mg/dL Height: 69.0 Inches Weight (kg): 122.47 IBW (kg): 70.70 Dosing wt(kg): 122.47 Estimated Creatinine clearance (ml/min): 130 Drug selected: Vancomycin Loading dose (mg): 0 Vd (liters): 98.0 (factor used: 0.8 L/kg) Emilio (hr-1): 0.112 Half life (hrs): 6.19 Recommended dose: 2250 mg Interval: 8 hrs Infusion time (hrs): 2.0 Predicted peak (mcg/mL): 34.8 Predicted trough (mcg/mL): 17.77 Total body weight is being used for vancomycin dosing. Recommendations: Give Vancomycin 2250 mg q 8 hrs with an expected Cpeak of 34.8 mcg/ml and an expected Ctrough of 17.77 mcg/ml
--- NOTE | 2021-01-07 11:24 | PC.NURSE ---
Dr Benedict talking to Dr Castelan about pt.
--- NOTE | 2021-01-07 11:25 | PC.NURSE ---
PT DENIES HAVING A MEDICATION LIST ON HAND TODAY. PT STATED, NO MEDICINES HAVE CHANGED SINCE I WAS ADMITTED LAST.
[2021-01-07 11:26] LABS: C-Reactive Protein 58.6 mg/L (0-4)
--- NOTE | 2021-01-07 11:27 | PC.NURSE ---
PT DENIES BEING ON ANY ANTIBIOTICS AT THIS TIME
--- NOTE | 2021-01-07 11:32 | PC.NURSE ---
Called care management for a bed [facility]
--- NOTE | 2021-01-07 11:32 | PC.NURSE ---
Calling Dr Arias for consult per ER MD orders.
--- NOTE | 2021-01-07 11:33 | PC.NURSE ---
Leaving a message with La Vaughn in Dr Karimi's office
[2021-01-07 11:38] LABS: Procalcitonin 0.388 ng/mL (0.0-2.0)
[2021-01-07 11:39] LABS: Erythrocyte Sedimentation Rate 63 mm/hr (0-15)
[2021-01-07 11:49] LABS: Adenovirus,PCR Not Detected (NotDetected); Bordetella Pertussis Not Detected (NotDetected); Chlamydophila Pneumoniae, PCR Not Detected (NotDetected); Coronavirus 19, PCR Not Detected (NotDetected); Coronavirus 229E Not Detected (NotDetected); Coronavirus NL63 Not Detected (NotDetected); Coronavirus OC43 Not Detected (NotDetected); Coronovirus HKU1,PCR Not Detected (NotDetected); Human Metapneumovirus Not Detected (NotDetected); Influenza A, PCR Not Detected (NotDetected); Influenza AH1, 2009 Not Detected (NotDetected); Influenza AH1, PCR Not Detected (NotDetected); Influenza AH3,PCR Not Detected (NotDetected); Influenza B, PCR Not Detected (NotDetected); Mycoplasma Pneumoniae, PCR Not Detected (NotDetected); Parainfluenza 1, PCR Not Detected (NotDetected); Parainfluenza 2, PCR Not Detected (NotDetected); Parainfluenza 3, PCR Not Detected (NotDetected); Parainfluenza 4, PCR Not Detected (NotDetected); Respiratory Syncytial Virus Not Detected (NotDetected); Rhinovirus/Enterovirus Not Detected (NotDetected)
--- NOTE | 2021-01-07 11:56 | PC.NURSE ---
Dr Karimi's office, aL, Returned our call and advised the patient is being discharged from their practice to follow up with [facility], if its the same thing they have been seeing him for. I advised them Dr Benedict wants them to be notified of the consult and that the patient is being admitted to [facility].
--- NOTE | 2021-01-07 13:18 | HMH.ORTHOCON ---
*Admission Date: 01/07/21 *Reason for consult:: LLE cellulitis *History of present illness: Patient is a 45-year-old noncompliant male who presents to the ED 01/07/2021 with redness and swelling and increased pain in his left lower extremity. States that the redness began a couple of days ago. Also began having chills yesterday, but no documented fevers. He denies nausea/vomiting, fevers, shortness of breath/chest pain. He was in the hospital here 12/29/20 but signed out on 12/30/20 AGAINST MEDICAL ADVICE. He states I never should have left . Since then he has not followed up with any physicians. He says he has transportation issues and therefore has not seen his primary care provider. He says he has not been on any antibiotics since he left the hospital. He also has an ulcer on the dorsum of his right foot, but it has not really changed, his primary complaint today is his left lower extremity. Patient was previously a patient of the podiatry practice due to inappropriate behavior, no shows, same-day cancellations and noncompliance with medical treatment and he was discharged from the practice earlier this week. [facility] History I have reviewed the patient's past medical history: Yes Medical History: Reports:: Chronic Obstructive Pulmonary Disease (COPD), Diabetes Mellitus Type 2, Hypertension Denies:: Cancer, Diabetes Mellitus Type 1, MRSA, Seizures *Have you ever received a pneumonia vaccine?: Yes *Have you received a flu vaccine this season?: Yes Other Medical History: Reports: Arthritis, Hypothyroidism, Liver Disease. Denies: Blood Transfusion Reaction Laterality Cases: Bilateral: Tonsillectomy, Other Other Surgeries: Yes: Ureter Stent, Other Amputation: No Fractures: Yes - *Social History Smoking Status: Smoker, status unknown Tobacco Type: cigarettes # Packs/Day (cigarettes): 0 Alcohol Intake: never Substance Use Type: heroin, amphetamines, opiates, painkillers, methamphetamine, prescription drug *Occupational Status:: disabled Housing: house Household Members: none *Travel in the last 8 weeks: None Family Hx:: Asthma, Cancer, Hyperlipidemia, Hypertension, Alcoholism Review of Systems - Review of Systems Review of systems:: pertinent systems reviewed and negative unless documented below - Constitutional Reports chills - Eyes Denies blind spots - ENT Denies abnormal hearing - *Cardiovascular Denies chest pain, Denies shortness of breath - *Respiratory Denies shortness of breath - *Gastrointestinal Denies abdominal pain, Denies nausea, Denies vomiting - *Genitourinary Denies difficulty urinating - *Musculoskeletal Reports joint swelling, Reports radiating pain into limb - Integumentary/Breasts Reports nail changes, Reports dry skin, Reports non-healing lesions - *Neurologic Reports tingling/numbness/burning sensations - Psychiatric Reports irritability - Hematologic/Lymphatic Reports enlarged lymph nodes (Left popliteal) - Allergic/Immunologic Reports GI upset with certain foods Meds Home Medications Medication Instructions Recorded Confirmed Type lisinopril 10 1 tab PO DAILY #90 tab 11/05/20 01/07/21 Rx mg-hydrochlorothiazide 12.5 mg tablet gabapentin 600 mg tablet 600 mg PO QIDP PRN #120 tab 12/08/20 01/07/21 Rx Collagenase Clostridium Hist. 1 applicatio TP DAILY 12/30/20 01/07/21 History [Santyl Ointment 30gm] Fluticasone/Umeclidin/Vilanter 1 puff IH DAILY 12/30/20 01/07/21 History [Trelegy Ellipta 200-62.5-25] Gentamicin Sulfate 1 applicatio TP DAILY 12/30/20 01/07/21 History Mupirocin Calcium [Mupirocin 2% 1 applicatio TP BID 12/30/20 01/07/21 History Cream 15gm] Allergies Allergy/AdvReac Type Severity Reaction Status Date / Time codeine Allergy Severe Anaphylaxis Verified 12/29/20 11:07 guaifenesin [From Mucinex] Allergy Severe SWELLS Verified 12/29/20 11:07 ketorolac [From Toradol] Allergy Severe Difficulty Verified 12/29/20 11:07 Swallowing Exam Vital
--- NOTE | 2021-01-07 15:42 | HMH.PHAVTE ---
[facility] Pharmacy VTE Monitoring - Patient Demographics Admission date: 01/07/21 Report Date: 01/07/21 Time: 15:42 Allergies/Adverse Reactions: Patient Allergies codeine Allergy (Severe, Verified 12/29/20 11:07) Anaphylaxis guaifenesin [From Mucinex] Allergy (Severe, Verified 12/29/20 11:07) SWELLS ketorolac [From Toradol] Allergy (Severe, Verified 12/29/20 11:07) Difficulty Swallowing Height: 1.75 m Weight: 127.119 kg Patient Problems: Current Active Problems Venous ulcer of left leg (Acute) Lower extremity cellulitis (Acute) Pain due to onychomycosis of toenails of both feet (Acute) Lymphedema of both lower extremities (Acute) Left leg pain (Acute) MRSA (methicillin resistant staph aureus) culture positive (Acute) Right foot ulcer (Acute) Carbapenem-resistant Enterobacteriaceae infection (Acute) Cellulitis of left leg (Acute) Pseudomonas aeruginosa infection (Acute) - VTE Risk Labs: VTE Related Lab Results Hgb 11.3 g/dL (14.1-18.0) L 01/07/21 10:37 Hct 33.3 % (42.0-52.0) L 01/07/21 10:37 Plt Count 87 K/mm3 (142-424) L 01/07/21 10:37 BUN 9 mg/dl (9-20) 01/07/21 10:37 Creatinine 0.70 mg/dl (0.66-1.25) 01/07/21 10:37 Estimated Creat Clear 226 mL/min (50-200) 01/07/21 10:37 Was VTE Risk Assessment Performed: Yes VTE Score: 2 VTE Risk Level: Very Low Risk - Prophylaxis VTE Prophylaxis Ordered?: Yes Types of VTE Prophylaxis: TEDS Knee High Location of Applied Device: Bilateral Lower Extremeties
--- NOTE | 2021-01-07 15:42 | HMH.PHAINT ---
MEDICATION RECONCILIATION COMPLETED ON PATIENT USING EXTERNAL FILL HISTORY FROM PHARMACY AND DISCHARGE SUMMARY FROM PREVIOUS ADMISSION. -EDILIA NORIEGAD
--- NOTE | 2021-01-07 15:48 | HMH.HP ---
*Admission Date: 01/07/21 *Chief complaint: cellulitis *History of present illness: Patient is a 45-year-old male, patient of mine, who was recently admitted for cellulitis of bilateral lower extremities. He has ulcerated lesion on the dorsum of his right foot, the lesions on the terrier aspect of the left calf. These are well described in previous notes. Dr. Arias has seen and consulted the patient as well. Patient over the weekend was placed on broad-spectrum antibiotics, signed himself out AMA. He subsequently returned with increasing weakness and pain. In the emergency room his white count was 4.9, his lactate was 2.0 and he was afebrile. The ulcer on his left valero was felt to be approximately 2.5 cm, cellulitis redness and warmth were noted from the foot to the groin. He has received no antibiotics since his discharge on 12/30/2020. [facility] History Medical History: Reports:: Chronic Obstructive Pulmonary Disease (COPD), Diabetes Mellitus Type 2, Hypertension Denies:: Cancer, Diabetes Mellitus Type 1, MRSA, Seizures *Have you ever received a pneumonia vaccine?: No (ref) *Have you received a flu vaccine this season?: No (ref) Other Medical History: Reports: Arthritis, Hypothyroidism, Liver Disease. Denies: Blood Transfusion Reaction Laterality Cases: Bilateral: Tonsillectomy, Other Other Surgeries: Yes: Ureter Stent, Other Amputation: No Fractures: Yes - *Social History Last grade of school completed: GED Smoking Status: Former smoker Tobacco Type: cigarettes # Packs/Day (cigarettes): 0 Alcohol Intake: former Substance Use Type: heroin, amphetamines, opiates, painkillers, methamphetamine, prescription drug *Occupational Status:: disabled Housing: house Household Members: none *Travel in the last 8 weeks: None Family Hx:: Asthma, Cancer, Hyperlipidemia, Hypertension, Alcoholism Review of Systems - Constitutional Reports chills, Reports fatigue, Reports malaise - Eyes Denies change in vision - ENT Denies abnormal hearing - *Cardiovascular Denies chest pain - *Respiratory Reports chest congestion, Reports wheezing - *Gastrointestinal Denies abdominal pain - *Genitourinary Denies difficulty urinating - *Musculoskeletal Reports abnormal walking, Reports joint pain, Reports muscle cramps, Reports muscle weakness, Reports body aches - Integumentary/Breasts Denies yellowing of the skin - *Neurologic Reports abnormal walking, Reports tingling/numbness/burning sensations, Reports weakness, Denies abnormal hearing - Psychiatric Reports lack of enjoyment - Endocrine Denies excessive sweating - Hematologic/Lymphatic Denies easy bleeding, Denies easy bruising - Allergic/Immunologic Reports wheezing Meds Home Medications Medication Instructions Recorded Confirmed Type lisinopril 10 1 tab PO DAILY #90 tab 11/05/20 01/07/21 Rx mg-hydrochlorothiazide 12.5 mg tablet gabapentin 600 mg tablet 600 mg PO QIDP PRN #120 tab 12/08/20 01/07/21 Rx Collagenase Clostridium Hist. 1 applicatio TP DAILY 12/30/20 01/07/21 History [Santyl Ointment 30gm] Fluticasone/Umeclidin/Vilanter 1 puff IH DAILY 12/30/20 01/07/21 History [Trelegy Ellipta 200-62.5-25] Gentamicin Sulfate 1 applicatio TP DAILY 12/30/20 01/07/21 History Mupirocin Calcium [Mupirocin 2% 1 applicatio TP BID 12/30/20 01/07/21 History Cream 15gm] Allergies Allergy/AdvReac Type Severity Reaction Status Date / Time codeine Allergy Severe Anaphylaxis Verified 12/29/20 11:07 guaifenesin [From Mucinex] Allergy Severe SWELLS Verified 12/29/20 11:07 ketorolac [From Toradol] Allergy Severe Difficulty Verified 12/29/20 11:07 Swallowing Exam Vital signs and Labs for Last 24 Hours: Temp Pulse Resp BP Pulse Ox 98 F 74 18 170/85 H 100 01/07/21 14:10 01/07/21 14:27 01/07/21 14:10 01/07/21 14:10 01/07/21 14:27 Laboratory Results - last 24 hr 01/07/21 10:37: WBC 4.9, RBC 3.55 L, Hgb 11.3 L, Hct 33.3 L, MCV 93.9, MC
--- NOTE | 2021-01-07 15:58 | PC.NURSE ---
notified Dr Stanton face to face of pt mottled appearing skin. Dr Stanton gave no new orders at this time. states he does not feel pt is septic.
[2021-01-08] VITALS (7 sets, daily range): BP systolic 145–180; BP diastolic 80–100; PULSE 81–89; RESP 16–20; TEMP 36.6–36.8; O2SAT 97–100; BMI 42.0
--- NOTE | 2021-01-08 03:44 | PC.NURSE ---
VSS. A&O. patient expressed concerns r/t cellulitis diagnosis and wound culture results. nurse consoled patient and offered support. patient encouraged to use call light in regards to ambulation r/t edema and infection. patient has been respectful and appropriate throughout shift. all patient requests completed in a timely manner. will continue to monitor.
--- NOTE | 2021-01-08 06:00 | XR_ITS ---
PROCEDURE: XR CHEST PORTABLE CLINICAL HISTORY: wheezing COMPARISON: Portable upright chest 12/29/2020 and 05/04/2020 FINDINGS: The cardiomediastinal silhouette and pulmonary vascularity are within normal limits. The lungs are clear without infiltrates, suspicious nodules, or pleural effusions. There are subtle nodular densities in both lower lobes which have been seen previously likely representing chronic interstitial change. There is no pleural fluid. No acute bony abnormalities. IMPRESSION: No acute findings. Dictated by: Dr. Raul Lau MD 01/08/2021 07:35 Dr. Raul Lau MD in [facility] 01/08/2021 07:35
--- NOTE | 2021-01-08 07:56 | PC.NURSE ---
IV pump beeping, this nurse entered room. Attempted to flush IV, noted that there was fluid leaking around IV site. IV dc'd. Attempted to gain access in JACOB w/ US guided, site infiltrated. Attempted x2 again in L Hand w/ no success. Krystle FayRN @ bedside @ this time to attempt to gain access.
--- NOTE | 2021-01-08 08:55 | HMH.ACPN2 ---
Internal Medicine - PN: Kalyn *Date: 01/08/21 *Time: 08:30 Interval history: pt laying in bed states his legs was swollen and red. pt states he wishs he never left the hospital now because his legs feels worse Exam Vital signs and Labs for Last 24 Hours: Temp Pulse Resp BP Pulse Ox 98.2 F 85 18 160/80 H 97 01/08/21 07:28 01/08/21 07:28 01/08/21 07:28 01/08/21 07:28 01/08/21 07:28 Laboratory Results - last 24 hr 01/07/21 10:37: WBC 4.9, RBC 3.55 L, Hgb 11.3 L, Hct 33.3 L, MCV 93.9, MCH 31.9 H, MCHC 34.0, RDW 15.8, Plt Count 87 L, MPV 10.1, Neut % (Auto) 82.5 H, Lymph % (Auto) 11.5, [place] % (Auto) 3.4, Eos % (Auto) 2.1, Baso % (Auto) 0.4, Neut # (Auto) 4.1, Lymph # (Auto) 0.6 L, [place] # (Auto) 0.2, Eos # (Auto) 0.1, Baso # (Auto) 0.0 01/07/21 10:37: Sodium 135 L, Potassium 3.2 L, Chloride 106, Carbon Dioxide 27, Anion Gap 5.2, BUN 9, Creatinine 0.70, Estimated Creat Clear 226, Estimated GFR 121, Est GFR ( Amer) 146, Glucose 197 H, Calcium 7.6 L, Total Bilirubin 2.7 H, AST 43, ALT 26, Alkaline Phosphatase 114, Total Protein 6.0 L, Albumin 2.6 L, Globulin 3.4 H, Albumin/Globulin Ratio 0.8 L 01/07/21 10:37: Lactate 2.0 01/07/21 10:37: ESR 63 H 01/07/21 10:37: C-Reactive Protein 58.6 H, Procalcitonin 0.388 01/07/21 11:30: Chlamy pneumoniae PCR Not detected, Adenovirus (PCR) Not detected, B. pertussis DNA (PCR) Not detected, Coronavirus OC43 (PCR) Not detected, Coronavirus HKU1 (PCR) Not detected, Coronavirus 229E (PCR) Not detected, SARS-CoV-2 (PCR) Not detected, Coronavirus NL63 (PCR) Not detected, Human Metapneumovir PCR Not detected, Influenza A (H1) PCR Not detected, Influ A (H1N1/09) PCR Not detected, Influenza A (H3) PCR Not detected, Influenza Type A (PCR) Not detected, Influenza Type B (PCR) Not detected, M. pneumoniae (PCR) Not detected, Parainfluenza 1 (PCR) Not detected, Parainfluenza 2 (PCR) Not detected, Parainfluenza 3 (PCR) Not detected, Parainfluenza 4 (PCR) Not detected, RSV (PCR) Not detected, Entero/Rhino (PCR) Not detected I & O for Last 24 hours: Intake & Output 01/05/21 01/06/21 01/07/21 01/08/21 11:59 11:59 11:59 11:59 Intake Total 1898 / 1898 Output Total 375 / 375 Balance 1523 / 1523 Weight 270 lb 283 lb 8 oz Microbiology Reports for the Last 24 Hours: Microbiology 01/07/21 11:05 Leg,Left - Wound Gram Stain - Final - Constitutional no acute distress - *Routine HEENT Exam Head: Present: normocephalic Eye: Present: PERRL ENT: Present: mucous membranes moist - *Routine Neck Exam Present: supple. Absent: lymphadenopathy - *Routine Respiratory Exam Present: CTA bilaterally - *Routine Cardiovascular Exam Present: RRR - *Routine Abdominal Exam Present: soft, normoactive bowel sounds. Absent: tenderness - *Routine Extremities Exam Present: normal capillary refill. Absent: cyanosis, clubbing, edema - *Routine Skin Exam Present: warm, wounds. Absent: rash Comments: parag lower ext with dressings redness ex up thigh - *Routine Neurological Exam Present: alert, oriented X3 - Routine Psychiatric Exam Present: normal affect Assessment and Plan (1) Lymphedema of both lower extremities Status: Acute Category: Medical Code(s): I89.0 - Lymphedema, not elsewhere classified (2) Left leg pain Status: Acute Category: Medical Code(s): M79.605 - Pain in left leg (3) Venous ulcer of left leg Status: Acute Category: Medical Code(s): I83.029 - Varicose veins of left lower extremity with ulcer of unspecified site; L97.929 - Non-pressure chronic ulcer of unspecified part of left lower leg with unspecified severity (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 Category: Medical Code(s): A49.8 - Other bacterial infections of unspecified site; Z16.24 - Resistance to multiple antibiotics (5) Cellulitis of left leg Status: Acute Category: Medical Code(s): L03.116 - Cellulitis of left lower limb (6) Marlee
--- NOTE | 2021-01-08 08:57 | HMH.ORTHPN ---
Subjective Date: 01/08/21 Time: 08:30 Principal diagnosis: LLE cellulitis Interval history: Patient is resting comfortably in bed. He reports the pain and redness has improved since yesterday. Denies N/V, F/C, SOB/CP. Once again discussed the noncompliance of the patient and the importance of staying and receiving the IV antibiotics. PN: Obj Ex Vital signs: Temp Pulse Resp BP Pulse Ox 98.2 F 85 18 160/80 H 97 01/08/21 07:28 01/08/21 07:28 01/08/21 07:28 01/08/21 07:28 01/08/21 07:28 - Constitutional no acute distress - Routine HEENT Exam Head: Present: normocephalic - Routine Neck Exam Present: supple - Routine Respiratory Exam Absent: respiratory distress - Routine Abdominal Exam Present: obese - Routine Extremities Exam Present: edema, pulses intact - Detailed Lower Extremity Exam Leg image: 1 - LLE cellulitis extending to medial thigh. Palpable popliteal lymph node. Left medial anterior leg ulcer: 5.5 x 2 x 0.3cm, 90% granular, 10% yellow fibrotic tissue. It extended thru skin, subq into/including deep fascia (not to bone). No drainage noted. Left lateral anterior leg ulcer: 3 x 2 x 0.2cm, 100% granular, thru skin into/including subq. No drainage noted. Top foot image: 1 - Right dorsal foot ulcer noted. The wound base post debridement, sharply excisionally with 15' blade thru skin into/including subq layer, was 2 x 1 x 0.2cm, 100% granular. Bleeding noted. No drainage or SOI. 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 Overall improvement noted to both legs. No drainage noted. Right dorsal foot wound noted stable. Left anterior ankle/valero wounds x2 noted. All wounds were sharply excisionally debrided full-thickness with 15' blade through skin, including subcutaneous tissue (right foot) and to/including deep fascia on the left. Wounds did not extend all the way through the deep fascia or to bone. No exposed tendon or bone. See PE skin section for measurements. B/L LE unna boot applied at bedside today. I had a long discussion with the patient regarding compliance and treatment plan. Patient was discharged from the podiatry practice this week due to noncompliance, inappropriate behavior, repeat no-show and last-minute cancellations. Patient reports having new insurance in which he may have transportation services. I recommend outpatient [facility] wound care clinic. PCP Dr. Stanton for pain management. He was referred to the pain clinic and saw Dr. Beltran/Nini Gonzales. They will consider treating his chronic long-term pain once the ulcers have resolved. Last oral antibiotics patient took was cefdinir 300mg, Minocycline 100mg BID, Levofloxacin 750mg x 14 days (10/12-10/26/20) 1. B/L LE Unna boot applied at bedside today 2. Maintain clean dry and intact 3. Nursing orders: dressing change: cleanse the skin with saline, dry. Then apply unna boot, secure with coban daily 4. Recommend broad spectrum IV antibiotics while admitted (Vanco, Zosyn), then transition to 2
[2021-01-08 10:42] LABS: Basophils % 0.5 % (0.1-2.0); Eosinophils # 0.2 K/mm3 (0.0-0.4); Hematocrit 33.1 % (42.0-52.0); Hemoglobin 10.9 g/dL (14.1-18.0); Lymphocytes # 0.7 K/mm3 (0.7-4.5); Lymphocytes % 19.8 % (10-50); Mean Corpuscular HGB Conc 32.9 g/dL (31.8-35.4); Mean Corpuscular Hemoglobin 31.3 pg (27.0-31.2); Mean Corpuscular Volume 95.1 fl (80-94); Mean Platelet Volume 9.7 fl (7.4-10.4); Monocytes # 0.2 K/mm3 (0.1-1.0); Monocytes % 5.6 % (1.7-9.3); Neutrophils # 2.5 K/mm3 (1.8-7.8); Neutrophils % 68.1 % (37.0-80.0); Platelet Count 104 K/mm3 (142-424); Red Blood Count 3.48 M/mm3 (4.60-6.20); Red Cell Distribution Width 15.8 % (11.5-17.5); White Blood Count 3.6 K/mm3 (4.8-10.8)
[2021-01-08 11:04] LABS: Alanine Aminotransferase 25 U/L (12-78); Albumin Level 2.7 g/dl (3.5-5.0); Albumin/Globulin Ratio 0.8 (1.1-1.8); Alkaline Phosphatase 150 U/L (38-126); Anion Gap 5.5 mEq/L (5-15); Aspartate Amino Transferase 46 U/L (17-59); Bilirubin,Total 1.3 mg/dl (0.2-1.3); Blood Urea Nitrogen 9 mg/dl (9-20); Calcium 7.5 mg/dl (8.4-10.2); Carbon Dioxide 27 mmol/L (22.0-30.0); Chloride 107 mmol/L (98-107); Creatinine Clearance Estimated 147 mL/min (50-200); Estimated Glomerular Filt Rate 144 ml/min (>60); GFR (African American) 175 ML/MIN (>60); Globulin 3.6 g/dL (1.3-3.2); Glucose 92 mg/dl (74-100); Potassium 3.5 mmoL/L (3.5-5.1); Sodium 136 mmol/L (136-145); Total Protein,Serum 6.3 g/dl (6.3-8.2)
--- NOTE | 2021-01-08 11:37 | PC.NURSE ---
Unna boots to BLE changed this AM by Dr. Karimi and Jeremie Fried. Orders placed for bilat unna boots to be changed daily per Dr. Karimi. Pt currently resting comfortably, medicated w/ percocet this AM. No further needs @ this time.
[2021-01-08 13:29] LABS: Vancomycin,Trough 22.1 ug/mL (5.0-10.0)
--- NOTE | 2021-01-08 13:48 | HMH.PHACONS ---
- Pharmacy Consult Date: 01/08/21 Time: 13:48 Referring provider: DR. LEBLANC Reason for Consult:: VANCOMYCIN TROUGH LEVEL AND DOSE CHANGE Allergies and ADEs:: Allergies Allergy/AdvReac Type Severity Reaction Status Date / Time codeine Allergy Severe Anaphylaxis Verified 12/29/20 11:07 guaifenesin [From Mucinex] Allergy Severe SWELLS Verified 12/29/20 11:07 ketorolac [From Toradol] Allergy Severe Difficulty Verified 12/29/20 11:07 Swallowing Home Medications:: Home Medications Medication Instructions Recorded Confirmed Type lisinopril 10 1 tab PO DAILY #90 tab 11/05/20 01/07/21 Rx mg-hydrochlorothiazide 12.5 mg tablet gabapentin 600 mg tablet 600 mg PO QIDP PRN #120 tab 12/08/20 01/07/21 Rx Collagenase Clostridium Hist. 1 applicatio TP DAILY 12/30/20 01/07/21 History [Santyl Ointment 30gm] Fluticasone/Umeclidin/Vilanter 1 puff IH DAILY 12/30/20 01/07/21 History [Trelegy Ellipta 200-62.5-25] Gentamicin Sulfate 1 applicatio TP DAILY 12/30/20 01/07/21 History Mupirocin Calcium [Mupirocin 2% 1 applicatio TP BID 12/30/20 01/07/21 History Cream 15gm] Height: 1.75 m Weight: 128.593 kg Laboratory Results:: Laboratory Results - last 24 hr 01/08/21 10:30: WBC 3.6 L D, RBC 3.48 L, Hgb 10.9 L, Hct 33.1 L, MCV 95.1 H, MCH 31.3 H, MCHC 32.9, RDW 15.8, Plt Count 104 L, MPV 9.7, Neut % (Auto) 68.1, Lymph % (Auto) 19.8, [place] % (Auto) 5.6, Eos % (Auto) 6.0, Baso % (Auto) 0.5, Neut # (Auto) 2.5, Lymph # (Auto) 0.7, [place] # (Auto) 0.2, Eos # (Auto) 0.2, Baso # (Auto) 0.0 01/08/21 10:30: Sodium 136, Potassium 3.5, Chloride 107, Carbon Dioxide 27, Anion Gap 5.5, BUN 9, Creatinine 0.60 L, Estimated Creat Clear 147, Estimated GFR 144, Est GFR ( Amer) 175, Glucose 92 D, Calcium 7.5 L, Total Bilirubin 1.3, AST 46, ALT 25, Alkaline Phosphatase 150 H, Total Protein 6.3, Albumin 2.7 L, Globulin 3.6 H, Albumin/Globulin Ratio 0.8 L 01/08/21 12:50: Vancomycin Trough 22.1 H Medical History: Reports:: Chronic Obstructive Pulmonary Disease (COPD), Diabetes Mellitus Type 2, Hypertension Denies:: Cancer, Diabetes Mellitus Type 1, MRSA, Seizures Assessment and Plan (1) Lymphedema of both lower extremities Status: Acute Category: Medical Code(s): I89.0 - Lymphedema, not elsewhere classified (2) Left leg pain Status: Acute Category: Medical Code(s): M79.605 - Pain in left leg (3) Venous ulcer of left leg Status: Acute Category: Medical Code(s): I83.029 - Varicose veins of left lower extremity with ulcer of unspecified site; L97.929 - Non-pressure chronic ulcer of unspecified part of left lower leg with unspecified severity (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 Category: Medical Code(s): A49.8 - Other bacterial infections of unspecified site; Z16.24 - Resistance to multiple antibiotics (5) Cellulitis of left leg Status: Acute Category: Medical Code(s): L03.116 - Cellulitis of left lower limb (6) Pain due to onychomycosis of toenails of both feet Status: Acute Category: Medical Code(s): B35.1 - Tinea unguium; M79.675 - Pain in left toe(s); M79.674 - Pain in right toe(s) (7) Right foot ulcer Status: Acute Qualifiers: Non-pressure ulcer stage: with muscle involvement without evidence of necrosis Qualified Code(s): L97.515 - Non-pressure chronic ulcer of other part of right foot with muscle involvement without evidence of necrosis Category: Medical Code(s): L97.519 - Non-pressure chronic ulcer of other part of right foot with unspecified severity (8) MRSA (methicillin resistant staph aureus) culture positive Status: Acute Category: Medical Code(s): Z22.322 - Carrier or suspected carrier of Methicillin resistant Staphylococcus aureus (9) Pseudomonas aeruginosa infection Status: Acute Category: Medical Code(s): A49.8 - Other bacterial infections of unspecified site - Assessment and plan all Dx Assessment and Plan for all problems
--- NOTE | 2021-01-08 18:32 | PC.NURSE ---
No acute changes. Pt medicated per OCT for pain in BLE w/ percocet, verbalized relief. Remains on room air. HR regular. Abdomen soft, non-tender w/ active BS in all quads. Voiding w/o difficulty per urinal. BLE remain in Unna boots, C/D/I. Is able to move toes freely. He is currently sitting up in bed watching TV. No needs @ this time.
[2021-01-09] VITALS: BP 131/68; PULSE 91; RESP 17; TEMP 36.6; O2SAT 96
--- NOTE | 2021-01-09 03:27 | PC.NURSE ---
No acute changes overnight. A&O. PT has c/o pain x2, gabapentin and percocet given per mar with favorable results. Lungs CTA, on room air. Bowel sounds x4, abd soft and nontender. UNNA boots in place on BLE. Pt able to make needs known to staff. IV patent, VSS, call light in reach, no concerns at this time.
[2021-01-09 04:44] VITALS: BP 143/79; PULSE 86; RESP 17; TEMP 36.7; O2SAT 92
[2021-01-09 05:00] VITALS: BMI 43.0
[2021-01-09 08:00] VITALS: BP 163/80; PULSE 86; RESP 18; TEMP 36.9; O2SAT 95
--- NOTE | 2021-01-09 11:15 | HMH.ACPN2 ---
Internal Medicine - PN: Subj *Date: 01/09/21 *Time: 11:15 Interval history: doing better- tolerating activity Exam Vital signs and Labs for Last 24 Hours: Temp Pulse Resp BP Pulse Ox 98.5 F 86 18 163/80 H 95 01/09/21 08:00 01/09/21 08:00 01/09/21 08:00 01/09/21 08:00 01/09/21 08:00 Laboratory Results - last 24 hr 01/08/21 12:50: Vancomycin Trough 22.1 H I & O for Last 24 hours: Intake & Output 01/06/21 01/07/21 01/08/21 01/09/21 11:59 11:59 11:59 11:59 Intake Total 1898 / 1898 2471 / 2471 Output Total 375 / 375 3900 / 3900 Balance 1523 / 1523 -1429 / -1429 Weight 270 lb 283 lb 8 oz 290 lb 1 oz Microbiology Reports for the Last 24 Hours: Microbiology 01/07/21 10:36 Blood Blood Culture - Preliminary NO GROWTH AFTER 48 HOURS 01/07/21 11:05 Leg,Left - Wound Gram Stain - Final 01/07/21 11:05 Leg,Left - Wound Wound Culture - Preliminary 01/07/21 10:36 Blood Blood Culture - Preliminary - Constitutional no acute distress, obese - *Routine HEENT Exam Head: Present: normocephalic Eye: Present: EOMI, PERRL ENT: Present: mucous membranes dry - *Routine Neck Exam Present: supple - *Routine Respiratory Exam Present: CTA bilaterally - *Routine Cardiovascular Exam Present: RRR, murmur - *Routine Abdominal Exam Present: soft - *Routine Extremities Exam Comments: dressing bilat - *Routine Skin Exam Present: erythema - *Routine Neurological Exam Present: alert, CN II-XII intact - Routine Psychiatric Exam Present: cooperative Assessment and Plan (1) Lymphedema of both lower extremities Status: Acute Category: Medical Code(s): I89.0 - Lymphedema, not elsewhere classified (2) Left leg pain Status: Acute Category: Medical Code(s): M79.605 - Pain in left leg (3) Venous ulcer of left leg Status: Acute Category: Medical Code(s): I83.029 - Varicose veins of left lower extremity with ulcer of unspecified site; L97.929 - Non-pressure chronic ulcer of unspecified part of left lower leg with unspecified severity (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 Category: Medical Code(s): A49.8 - Other bacterial infections of unspecified site; Z16.24 - Resistance to multiple antibiotics (5) Cellulitis of left leg Status: Acute Category: Medical Code(s): L03.116 - Cellulitis of left lower limb (6) Pain due to onychomycosis of toenails of both feet Status: Acute Category: Medical Code(s): B35.1 - Tinea unguium; M79.675 - Pain in left toe(s); M79.674 - Pain in right toe(s) (7) Right foot ulcer Status: Acute Qualifiers: Non-pressure ulcer stage: with muscle involvement without evidence of necrosis Qualified Code(s): L97.515 - Non-pressure chronic ulcer of other part of right foot with muscle involvement without evidence of necrosis Category: Medical Code(s): L97.519 - Non-pressure chronic ulcer of other part of right foot with unspecified severity (8) MRSA (methicillin resistant staph aureus) culture positive Status: Acute Category: Medical Code(s): Z22.322 - Carrier or suspected carrier of Methicillin resistant Staphylococcus aureus (9) Pseudomonas aeruginosa infection Status: Acute Category: Medical Code(s): A49.8 - Other bacterial infections of unspecified site (10) Obesity Status: Acute Qualifiers: Obesity type: due to excess calories Obesity classification: adult class 3 (BMI >= 40) Serious obesity comorbidity presence: with serious comorbidity Body mass index: BMI 40.0-44.9 Qualified Code(s): E66.01 - Morbid (severe) obesity due to excess calories; Z68.41 - Body mass index [BMI]40.0-44.9, adult Category: Medical Code(s): E66.9 - Obesity, unspecified
[2021-01-09 15:36] VITALS: BP 173/86; PULSE 83; RESP 20; TEMP 36.9; O2SAT 100
--- NOTE | 2021-01-09 18:24 | PC.NURSE ---
Pt is alert and oriented and able to make needs known. RR even and unlabored. Scattered wheezes in parag lung herron. S1,S2, BS x 4. Has sat on side of bed this shift and ambulated in room to and from bathroom. Unna boots changed this shift to BLE. VSS. Have educated pt of cardiac diet. Patient has had pain meds per oct. Continues on IV ABT.
[2021-01-09 20:00] VITALS: BP 139/72; PULSE 80; RESP 16; TEMP 36.8; O2SAT 97
--- NOTE | 2021-01-10 03:34 | PC.NURSE ---
No acute changes overnight. Pt A&O. Has c/o pain x2 this shift, gabapentin and percocet given per mar with desirable results. Lungs CTA, on room air. Bowel sounds x4, abd soft and nontender. UNNA boots in place over BLE. IV patent, NS @ 50. VSS, call light in reach, no concerns at this time.
[2021-01-10 04:00] VITALS: BP 163/79; PULSE 81; RESP 16; TEMP 36.7; O2SAT 96
[2021-01-10 05:00] VITALS: BMI 42.7
[2021-01-10 08:00] VITALS: BP 142/84; PULSE 84; RESP 16; TEMP 36.9; O2SAT 93
[2021-01-10 10:03] LABS: Basophils % 0.8 % (0.1-2.0); Eosinophils # 0.2 K/mm3 (0.0-0.4); Eosinophils % 9.5 % (0.1-12.0); Hematocrit 33.9 % (42.0-52.0); Lymphocytes # 0.6 K/mm3 (0.7-4.5); Lymphocytes % 31.2 % (10-50); Mean Corpuscular HGB Conc 32.3 g/dL (31.8-35.4); Mean Corpuscular Hemoglobin 31.3 pg (27.0-31.2); Mean Corpuscular Volume 96.8 fl (80-94); Mean Platelet Volume 8.5 fl (7.4-10.4); Monocytes # 0.1 K/mm3 (0.1-1.0); Monocytes % 5.5 % (1.7-9.3); Neutrophils % 52.9 % (37.0-80.0); Platelet Count 111 K/mm3 (142-424); Red Cell Distribution Width 15.6 % (11.5-17.5); White Blood Count 1.9 K/mm3 (4.8-10.8)
[2021-01-10 10:07] LABS: Anion Gap 3.7 mEq/L (5-15); Blood Urea Nitrogen 8 mg/dl (9-20); Calcium 7.6 mg/dl (8.4-10.2); Carbon Dioxide 29 mmol/L (22.0-30.0); Chloride 108 mmol/L (98-107); Creatinine Clearance Estimated 126 mL/min (50-200); Estimated Glomerular Filt Rate 121 ml/min (>60); GFR (African American) 146 ML/MIN (>60); Glucose 178 mg/dl (74-100); Potassium 3.7 mmoL/L (3.5-5.1); Sodium 137 mmol/L (136-145)
[2021-01-10 10:23] LABS: Vancomycin,Trough 16.5 ug/mL (5.0-10.0)
--- NOTE | 2021-01-10 11:07 | HMH.ACPN ---
Internal Medicine - PN: Subj *Date: 01/10/21 *Time: 11:07 Exam Vital signs and Labs for Last 24 Hours: Temp Pulse Resp BP Pulse Ox 98.5 F 84 16 142/84 H 93 L 01/10/21 08:00 01/10/21 08:00 01/10/21 08:00 01/10/21 08:00 01/10/21 08:00 Laboratory Results - last 24 hr 01/10/21 08:30: Vancomycin Trough 16.5 H 01/10/21 08:30: Sodium 137, Potassium 3.7, Chloride 108 H, Carbon Dioxide 29, Anion Gap 3.7 L, BUN 8 L, Creatinine 0.70, Estimated Creat Clear 126, Estimated GFR 121, Est GFR ( Amer) 146, Glucose 178 H, Calcium 7.6 L 01/10/21 08:30: WBC 1.9 L* D, RBC 3.50 L, Hgb 11.0 L, Hct 33.9 L, MCV 96.8 H, MCH 31.3 H, MCHC 32.3, RDW 15.6, Plt Count 111 L, MPV 8.5, Neut % (Auto) 52.9, Lymph % (Auto) 31.2, [place] % (Auto) 5.5, Eos % (Auto) 9.5, Baso % (Auto) 0.8, Neut # (Auto) 1.0 L, Lymph # (Auto) 0.6 L, [place] # (Auto) 0.1, Eos # (Auto) 0.2, Baso # (Auto) 0.0 I & O for Last 24 hours: Intake & Output 01/07/21 01/08/21 01/09/21 01/10/21 23:59 23:59 23:59 23:59 Intake Total 840 / 840 2949 / 2949 2260 / 2260 360 / 360 Output Total 375 / 375 2100 / 2400 2550 / 3350 2300 / 2300 Balance 465 / 465 849 / 549 -290 / -1090 -1940 / -1940 Weight 127.119 kg 128.593 kg 131.57 kg 130.833 kg Microbiology Reports for the Last 24 Hours: Microbiology 01/07/21 10:36 Blood Blood Culture - Preliminary Gram Positive Cocci 01/07/21 17:57 Anus CRE Surveillance Culture - Final Negative 01/07/21 11:05 Leg,Left - Wound Gram Stain - Final 01/07/21 11:05 Leg,Left - Wound Wound Culture - Preliminary Gram Negative Rods Gram Negative Rods#2 01/07/21 10:36 Blood Blood Culture - Preliminary NO GROWTH AFTER 48 HOURS Assessment and Plan (1) Lymphedema of both lower extremities Status: Acute Category: Medical Code(s): I89.0 - Lymphedema, not elsewhere classified (2) Left leg pain Status: Acute Category: Medical Code(s): M79.605 - Pain in left leg (3) Venous ulcer of left leg Status: Acute Category: Medical Code(s): I83.029 - Varicose veins of left lower extremity with ulcer of unspecified site; L97.929 - Non-pressure chronic ulcer of unspecified part of left lower leg with unspecified severity (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 Category: Medical Code(s): A49.8 - Other bacterial infections of unspecified site; Z16.24 - Resistance to multiple antibiotics (5) Cellulitis of left leg Status: Acute Category: Medical Code(s): L03.116 - Cellulitis of left lower limb (6) Pain due to onychomycosis of toenails of both feet Status: Acute Category: Medical Code(s): B35.1 - Tinea unguium; M79.675 - Pain in left toe(s); M79.674 - Pain in right toe(s) (7) Right foot ulcer Status: Acute Qualifiers: Non-pressure ulcer stage: with muscle involvement without evidence of necrosis Qualified Code(s): L97.515 - Non-pressure chronic ulcer of other part of right foot with muscle involvement without evidence of necrosis Category: Medical Code(s): L97.519 - Non-pressure chronic ulcer of other part of right foot with unspecified severity (8) MRSA (methicillin resistant staph aureus) culture positive Status: Acute Category: Medical Code(s): Z22.322 - Carrier or suspected carrier of Methicillin resistant Staphylococcus aureus (9) Pseudomonas aeruginosa infection Status: Acute Category: Medical Code(s): A49.8 - Other bacterial infections of unspecified site (10) Obesity Status: Acute Qualifiers: Obesity type: due to excess calories Obesity classification: adult class 3 (BMI >= 40) Serious obesity comorbidity presence: with serious comorbidity Body mass index: BMI 40.0-44.9 Qualified Code(s): E66.01 - Morbid (severe) obesity due to excess calories; Z68.41 - Body mass index [BMI]40.0-44.9, adult
--- NOTE | 2021-01-10 11:15 | HMH.PHACONS ---
- Pharmacy Consult Date: 01/10/21 Time: 11:15 Referring provider: DR. ROPER Reason for Consult:: Vancomycin level Allergies and ADEs:: Allergies Allergy/AdvReac Type Severity Reaction Status Date / Time codeine Allergy Severe Anaphylaxis Verified 12/29/20 11:07 guaifenesin [From Mucinex] Allergy Severe SWELLS Verified 12/29/20 11:07 ketorolac [From Toradol] Allergy Severe Difficulty Verified 12/29/20 11:07 Swallowing Home Medications:: Home Medications Medication Instructions Recorded Confirmed Type lisinopril 10 1 tab PO DAILY #90 tab 11/05/20 01/07/21 Rx mg-hydrochlorothiazide 12.5 mg tablet gabapentin 600 mg tablet 600 mg PO QIDP PRN #120 tab 12/08/20 01/07/21 Rx Collagenase Clostridium Hist. 1 applicatio TP DAILY 12/30/20 01/07/21 History [Santyl Ointment 30gm] Fluticasone/Umeclidin/Vilanter 1 puff IH DAILY 12/30/20 01/07/21 History [Trelegy Ellipta 200-62.5-25] Gentamicin Sulfate 1 applicatio TP DAILY 12/30/20 01/07/21 History Mupirocin Calcium [Mupirocin 2% 1 applicatio TP BID 12/30/20 01/07/21 History Cream 15gm] Height: 1.75 m Weight: 130.833 kg Laboratory Results:: Laboratory Results - last 24 hr 01/10/21 08:30: Vancomycin Trough 16.5 H 01/10/21 08:30: Sodium 137, Potassium 3.7, Chloride 108 H, Carbon Dioxide 29, Anion Gap 3.7 L, BUN 8 L, Creatinine 0.70, Estimated Creat Clear 126, Estimated GFR 121, Est GFR ( Amer) 146, Glucose 178 H, Calcium 7.6 L 01/10/21 08:30: WBC 1.9 L* D, RBC 3.50 L, Hgb 11.0 L, Hct 33.9 L, MCV 96.8 H, MCH 31.3 H, MCHC 32.3, RDW 15.6, Plt Count 111 L, MPV 8.5, Neut % (Auto) 52.9, Lymph % (Auto) 31.2, [place] % (Auto) 5.5, Eos % (Auto) 9.5, Baso % (Auto) 0.8, Neut # (Auto) 1.0 L, Lymph # (Auto) 0.6 L, [place] # (Auto) 0.1, Eos # (Auto) 0.2, Baso # (Auto) 0.0 Medical History: Reports:: Chronic Obstructive Pulmonary Disease (COPD), Diabetes Mellitus Type 2, Hypertension Denies:: Cancer, Diabetes Mellitus Type 1, MRSA, Seizures Assessment and Plan (1) Lymphedema of both lower extremities Status: Acute Category: Medical Code(s): I89.0 - Lymphedema, not elsewhere classified (2) Left leg pain Status: Acute Category: Medical Code(s): M79.605 - Pain in left leg (3) Venous ulcer of left leg Status: Acute Category: Medical Code(s): I83.029 - Varicose veins of left lower extremity with ulcer of unspecified site; L97.929 - Non-pressure chronic ulcer of unspecified part of left lower leg with unspecified severity (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 Category: Medical Code(s): A49.8 - Other bacterial infections of unspecified site; Z16.24 - Resistance to multiple antibiotics (5) Cellulitis of left leg Status: Acute Category: Medical Code(s): L03.116 - Cellulitis of left lower limb (6) Pain due to onychomycosis of toenails of both feet Status: Acute Category: Medical Code(s): B35.1 - Tinea unguium; M79.675 - Pain in left toe(s); M79.674 - Pain in right toe(s) (7) Right foot ulcer Status: Acute Qualifiers: Non-pressure ulcer stage: with muscle involvement without evidence of necrosis Qualified Code(s): L97.515 - Non-pressure chronic ulcer of other part of right foot with muscle involvement without evidence of necrosis Category: Medical Code(s): L97.519 - Non-pressure chronic ulcer of other part of right foot with unspecified severity (8) MRSA (methicillin resistant staph aureus) culture positive Status: Acute Category: Medical Code(s): Z22.322 - Carrier or suspected carrier of Methicillin resistant Staphylococcus aureus (9) Pseudomonas aeruginosa infection Status: Acute Category: Medical Code(s): A49.8 - Other bacterial infections of unspecified site (10) Obesity Status: Acute Qualifiers: Obesity type: due to excess calories Obesity classification: adult class 3 (BMI >= 40) Serious obesity comorbidity presence: with serious comorbidity Body mass index: B
--- NOTE | 2021-01-10 11:55 | HMH.ACPN2 ---
Internal Medicine - PN: Subj *Date: 01/10/21 *Time: 11:55 Interval history: doing better but has dec wbc - discussed oob Exam Vital signs and Labs for Last 24 Hours: Temp Pulse Resp BP Pulse Ox 98.5 F 84 16 142/84 H 93 L 01/10/21 08:00 01/10/21 08:00 01/10/21 08:00 01/10/21 08:00 01/10/21 08:00 Laboratory Results - last 24 hr 01/10/21 08:30: Vancomycin Trough 16.5 H 01/10/21 08:30: Sodium 137, Potassium 3.7, Chloride 108 H, Carbon Dioxide 29, Anion Gap 3.7 L, BUN 8 L, Creatinine 0.70, Estimated Creat Clear 126, Estimated GFR 121, Est GFR ( Amer) 146, Glucose 178 H, Calcium 7.6 L 01/10/21 08:30: WBC 1.9 L* D, RBC 3.50 L, Hgb 11.0 L, Hct 33.9 L, MCV 96.8 H, MCH 31.3 H, MCHC 32.3, RDW 15.6, Plt Count 111 L, MPV 8.5, Neut % (Auto) 52.9, Lymph % (Auto) 31.2, [place] % (Auto) 5.5, Eos % (Auto) 9.5, Baso % (Auto) 0.8, Neut # (Auto) 1.0 L, Lymph # (Auto) 0.6 L, [place] # (Auto) 0.1, Eos # (Auto) 0.2, Baso # (Auto) 0.0 I & O for Last 24 hours: Intake & Output 01/07/21 01/08/21 01/09/21 01/10/21 11:59 11:59 11:59 11:59 Intake Total 1898 / 1898 2471 / 2471 2040 / 2040 Output Total 375 / 375 3900 / 3900 3050 / 3050 Balance 1523 / 1523 -1429 / -1429 -1010 / -1010 Weight 270 lb 283 lb 8 oz 290 lb 1 oz 288 lb 7 oz Microbiology Reports for the Last 24 Hours: Microbiology 01/07/21 10:36 Blood Blood Culture - Preliminary Gram Positive Cocci 01/07/21 17:57 Anus CRE Surveillance Culture - Final Negative 01/07/21 11:05 Leg,Left - Wound Gram Stain - Final 01/07/21 11:05 Leg,Left - Wound Wound Culture - Preliminary Gram Negative Rods Gram Negative Rods#2 01/07/21 10:36 Blood Blood Culture - Preliminary NO GROWTH AFTER 48 HOURS - Constitutional no acute distress, obese - *Routine HEENT Exam Head: Present: normocephalic Eye: Present: EOMI, PERRL ENT: Present: mucous membranes dry - *Routine Neck Exam Present: supple - *Routine Respiratory Exam Present: decreased breath sounds - *Routine Cardiovascular Exam Present: RRR, murmur - *Routine Abdominal Exam Present: soft - *Routine Extremities Exam Comments: chronic lower ext changes - *Routine Skin Exam Present: intact - *Routine Neurological Exam Present: alert, CN II-XII intact - Routine Psychiatric Exam Present: normal affect Assessment and Plan (1) Lymphedema of both lower extremities Status: Acute Category: Medical Code(s): I89.0 - Lymphedema, not elsewhere classified (2) Left leg pain Status: Acute Category: Medical Code(s): M79.605 - Pain in left leg (3) Venous ulcer of left leg Status: Acute Category: Medical Code(s): I83.029 - Varicose veins of left lower extremity with ulcer of unspecified site; L97.929 - Non-pressure chronic ulcer of unspecified part of left lower leg with unspecified severity (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 Category: Medical Code(s): A49.8 - Other bacterial infections of unspecified site; Z16.24 - Resistance to multiple antibiotics (5) Cellulitis of left leg Status: Acute Category: Medical Code(s): L03.116 - Cellulitis of left lower limb (6) Pain due to onychomycosis of toenails of both feet Status: Acute Category: Medical Code(s): B35.1 - Tinea unguium; M79.675 - Pain in left toe(s); M79.674 - Pain in right toe(s) (7) Right foot ulcer Status: Acute Qualifiers: Non-pressure ulcer stage: with muscle involvement without evidence of necrosis Qualified Code(s): L97.515 - Non-pressure chronic ulcer of other part of right foot with muscle involvement without evidence of necrosis Category: Medical Code(s): L97.519 - Non-pressure chronic ulcer of other part of right foot with unspecified severity (8) MRSA (methicillin resistant staph aureus) culture positive
[2021-01-10 16:00] VITALS: BP 138/78; PULSE 79; RESP 18; TEMP 36.5; O2SAT 94
--- NOTE | 2021-01-10 17:49 | PC.NURSE ---
PT IS SITTING UP IN THE CHAIR EATING DINNER AT THIS TIME. PT HAS REQUESTED SNACKS AND [place] [employer] ALL SHIFT. SHOWER AND BED CHANGE THIS SHIFT. UNNA BOOTS CHANGED AFTER SHOWER. PT WAS MEDICATED FOR PAIN AFTER SHOWER AND BEFORE APPLYING THE UNNA BOOTS. LUNG SOUNDS DIMINISHED WITH SCATTERED WHEEZES. ABDOMEN SOFT/NON TENDER WITH ACTIVE BOWEL SOUNDS. PT HAS BEEN AMBULATING TO THE BATHROOM AND USING THE URINAL. VSS. WILL CONTINUE TO MONITOR.
[2021-01-10 20:00] VITALS: BP 163/75; PULSE 82; RESP 18; TEMP 36.9; O2SAT 97
--- NOTE | 2021-01-11 03:30 | PC.NURSE ---
pt is A/O x4. no acute changes during this shift. pt was given gabapentin and percocet per OCT. Unna boots on LLE. VSS, IV patent, pt is able to let needs known to staff. call light within reach, no concerns.
[2021-01-11 04:00] VITALS: BP 164/98; PULSE 83; RESP 17; TEMP 37; O2SAT 92
[2021-01-11 05:00] VITALS: BMI 42.2
[2021-01-11 08:00] VITALS: BP 167/96; PULSE 89; RESP 20; TEMP 36.6; O2SAT 97
--- NOTE | 2021-01-11 11:19 | HMH.DCSUM ---
General - General Admission date:: 01/07/21 Discharge date: 01/11/21 HPI HPI: Patient is a 45-year-old male, patient of mine, who was recently admitted for cellulitis of bilateral lower extremities. He has ulcerated lesion on the dorsum of his right foot, the lesions on the terrier aspect of the left calf. These are well described in previous notes. Dr. Arias has seen and consulted the patient as well. Patient over the weekend was placed on broad-spectrum antibiotics, signed himself out AMA. He subsequently returned with increasing weakness and pain. In the emergency room his white count was 4.9, his lactate was 2.0 and he was afebrile. The ulcer on his left valero was felt to be approximately 2.5 cm, cellulitis redness and warmth were noted from the foot to the groin. He has received no antibiotics since his discharge on 12/30/2020. Hospital Course Hospital Course: Laboratory Tests 01/07/21 01/07/21 01/07/21 10:37 10:37 10:37 WBC 4.9 RBC 3.55 L Hgb 11.3 L Hct 33.3 L MCV 93.9 MCH 31.9 H MCHC 34.0 RDW 15.8 Plt Count 87 L MPV 10.1 Neut % (Auto) 82.5 H Lymph % (Auto) 11.5 [place] % (Auto) 3.4 Eos % (Auto) 2.1 Baso % (Auto) 0.4 Neut # (Auto) 4.1 Lymph # (Auto) 0.6 L [place] # (Auto) 0.2 Eos # (Auto) 0.1 Baso # (Auto) 0.0 ESR Sodium 135 L Potassium 3.2 L Chloride 106 Carbon Dioxide 27 Anion Gap 5.2 BUN 9 Creatinine 0.70 Estimated Creat Clear 226 Estimated GFR 121 Est GFR ( Amer) 146 Glucose 197 H Lactate 2.0 Calcium 7.6 L Total Bilirubin 2.7 H AST 43 ALT 26 Alkaline Phosphatase 114 C-Reactive Protein Total Protein 6.0 L Albumin 2.6 L Globulin 3.4 H Albumin/Globulin Ratio 0.8 L Procalcitonin Vancomycin Trough Chlamy pneumoniae PCR Adenovirus (PCR) B. pertussis DNA (PCR) Coronavirus OC43 (PCR) Coronavirus HKU1 (PCR) Coronavirus 229E (PCR) SARS-CoV-2 (PCR) Coronavirus NL63 (PCR) Human Metapneumovir PCR Influenza A (H1) PCR Influ A (H1N1/09) PCR Influenza A (H3) PCR Influenza Type A (PCR) Influenza Type B (PCR) M. pneumoniae (PCR) Parainfluenza 1 (PCR) Parainfluenza 2 (PCR) Parainfluenza 3 (PCR) Parainfluenza 4 (PCR) RSV (PCR) Entero/Rhino (PCR) 01/07/21 01/07/21 01/07/21 10:37 10:37 11:30 WBC RBC Hgb Hct MCV MCH MCHC RDW Plt Count MPV Neut % (Auto) Lymph % (Auto) [place] % (Auto) Eos % (Auto) Baso % (Auto) Neut # (Auto) Lymph # (Auto) [place] # (Auto) Eos # (Auto) Baso # (Auto) ESR 63 H Sodium Potassium Chloride Carbon Dioxide Anion Gap BUN Creatinine Estimated Creat Clear Estimated GFR Est GFR ( Amer) Glucose Lactate Calcium Total Bilirubin AST ALT Alkaline Phosphatase C-Reactive Protein 58.6 H Total Protein Albumin Globulin Albumin/Globulin Ratio Procalcitonin 0.388 Vancomycin Trough Chlamy pneumoniae PCR Not detected Adenovirus (PCR) Not detected B. pertussis DNA (PCR) Not detected Coronavirus OC43 (PCR) Not detected Coronavirus HKU1 (PCR) Not detected Coronavirus 229E (PCR) Not detected SARS-CoV-2 (PCR) Not detected Coronavirus NL63 (PCR) Not detected Human Metapneumovir PCR Not detected Influenza A (H1) PCR Not detected Influ A (H1N1/09) PCR Not detected Influenza A (H3) PCR Not detected Influenza Type A (PCR) Not detected Influenza Type B (PCR) Not detected M. pneumoniae (PCR) Not detected Parainfluenza 1 (PCR) Not detected Parainfluenza 2 (PCR) Not detected Parainfluenza 3 (PCR) Not detected Parainfluenza 4 (PCR) Not detected RSV (PCR) Not detected Entero/Rhino (PCR) Not detected 01/08/21 01/08/21 01/08/21 10:30 10:30 12:50 WBC 3.6 L D R
--- NOTE | 2021-01-12 10:32 | SW/DCPLANNER ---
Addendum entered by Sheri Suarez 01/12/21 12:45: Debbie with [facility] has stated that services will begin tomorrow for this patient. Original Note: Patient information has been faxed to [facility] to resume all home health services.
== END 2021-01-11 11:49 | disposition home or self-care (01) ==
LOC: ER 10:21 → 2ND 11:48
PROVIDERS: Nurse Practitioner Family; Admitting Provider Family Medicine; Emergency Provider Emergency Medicine; PCP Family Medicine; Visit Provider Family Medicine
DX: L03.116 Cellulitis of left lower limb (principal); E11.621 Type 2 diabetes mellitus with foot ulcer; M19.90 Unspecified osteoarthritis, unspecified site; J44.9 Chronic obstructive pulmonary disease, unspecified; E03.9 Hypothyroidism, unspecified; I10 Essential (primary) hypertension; E66.9 Obesity, unspecified; Z68.41 Body mass index [BMI] 40.0-44.9, adult; Z20.822 Contact with and (suspected) exposure to COVID-19; Z22.322 Carrier or suspected carrier of Methicillin resistant Staphylococcus aureus; B96.5 Pseudomonas (aeruginosa) (mallei) (pseudomallei) as the cause of diseases classified elsewhere; Z16.39 Resistance to other specified antimicrobial drug; D70.9 Neutropenia, unspecified; I87.2 Venous insufficiency (chronic) (peripheral); L03.115 Cellulitis of right lower limb; I83.029 Varicose veins of left lower extremity with ulcer of unspecified site; L97.921 Non-pressure chronic ulcer of unspecified part of left lower leg limited to breakdown of skin
CPT/HCPCS: 11042; 36415; 71045; 73590; 80048; 80053; 80202; 83605; 84145; 85025; 85651; 86140; 87040; 87070; 87077; 87081; 87186; 87205; 87581; 87633; 87798; 96365; 96367; 96375; 96376; 99284; G0378; J2543; J3370

== ENCOUNTER 2021-02-05 08:00 | Outpatient (RCR) | payer MEDICARE, OTHER, SELFPAY ==
--- NOTE | 2021-01-27 14:32 | HMH.PTOPWND ---
Rehab Outpt Wound Evaluation Rehab OP Wound Evaluation Start: 01/27/21 14:09 Freq: Status: Active Protocol: Document 01/27/21 14:09 [email or web address] (Rec: 01/27/21 14:32 [email or web address] [id number]) Electronically Signed By Davon Benites, DANIEL 01/27/21 14:09 Subjective/History History History This is the initial wound clinic evaluation for Vinod Ragland. Pt is a 45 y/o male w/ long history of BLE wounds. Pt reports theses began ~1 1 /2 years ago with an infection . Pt explained infection began in LLE. Pt has also had significant hx of non-complaince w/ wound care and multiple hospitalizations due to sepsis. Subjective Subjective Pt reports he is finally able to wear 2 shoes Wound Eval Wound Left Lower Lateral Tam Wound Type unknown Wound Length (cm) 1.5 Wound Width (cm) 1.0 Wound Bed Appearance Beefy Red Percentage Granulated (%) 100 Wound Margins Description Well Defined Surrounding Tissue Appearance [place] Drainage Description Serous Drainage Amount Small Drainage Odor No Odor Dressing Status Soiled Wound Topical Solution/Irrigant Saline Irrigant Primary Dressing Silver Dressing Comment tegederm ag mesh Wound Secondary Dressing Type Unna Boot Wound Debridement Method Sharps Wound Debridement Amount of Tissue Minimal Removed Wound Debridement Result Stopped Due to Bleeding Left Lower Medial Tam Wound Type unknown etiology Wound Length (cm) 5.5 Wound Width (cm) 2.0 Wound Bed Appearance Beefy Red Percentage Granulated (%) 100 Surrounding Tissue Appearance [place] Drainage Amount Small Drainage Odor No Odor Dressing Status Soiled Primary Dressing Silver Dressing Comment tegederm ag mesh Wound Secondary Dressing Type Unna Boot Wound Debridement Method Sharps Wound Debridement Amount of Tissue Minimal Removed Wound Debridement Result Stopped Due to Bleeding Right Distal Volar Foot Wound Type unknown etiology Is This a Chronic Wound Yes Wound Length (cm) 1.5 Wound Width (cm) 1.0 Wound Bed [place]
== END 2021-02-05 08:05 | disposition home or self-care (01) ==
LOC: PT 08:00
PROVIDERS: PCP Family Medicine; Visit Provider Family Medicine
DX: I83.019 Varicose veins of right lower extremity with ulcer of unspecified site (principal); L97.911 Non-pressure chronic ulcer of unspecified part of right lower leg limited to breakdown of skin; I83.029 Varicose veins of left lower extremity with ulcer of unspecified site; L97.921 Non-pressure chronic ulcer of unspecified part of left lower leg limited to breakdown of skin
CPT/HCPCS: 97162

== ENCOUNTER 2021-04-30 12:19 | Inpatient (IN) | payer MEDICARE, SELFPAY ==
[2021-04-30] VITALS (12 sets, daily range): BP systolic 80–160; BP diastolic 54–91; PULSE 81–106; RESP 15–24; TEMP 36.8–37.1; O2SAT 95–100; BMI 39.9; BMI 40.4
--- NOTE | 2021-04-30 12:50 | CA_ITS ---
APPROVED REPORT Bilateral Lower Extremity Venous Study for DVT. Associate Programmer Analyst: RAFAELA Nesbitt Lower Extremity Pain: Bilateral Lower Extremity Edema: Bilateral History of Smoking Lower Extremity Swelling: Bilateral swelling Risk Factors Obesity Vein Imaging CFV (R): compressive, spontaneous, phasic, augmentation SFJ (R): compressive, spontaneous, phasic, augmentation FEM (R): compressive, spontaneous, phasic, augmentation POP (R): compressive, spontaneous, phasic, augmentation PTV (R): compressive, spontaneous, phasic, augmentation GSV (R): compressive, spontaneous, phasic, augmentation Peroneals (R):Not Visualized GAS (R): compressive, spontaneous, phasic, augmentation CFV (L): compressive, spontaneous, phasic, augmentation SFJ (L): compressive, spontaneous, phasic, augmentation FEM (L): compressive, spontaneous, phasic, augmentation POP (L): compressive, spontaneous, phasic, augmentation PTV (L): compressive, spontaneous, phasic, augmentation GSV (L): compressive, spontaneous, phasic, augmentation Peroneals (L):Not Visualized GAS (L): compressive, spontaneous, phasic, augmentation Findings Study suggests no evidence of DVT or SVT in the bilateral lower extremities. The bilateral peroneal veins were not visualized and the bilateral posterior tibial veins were poorly visualized. Conclusion Study suggests no evidence of DVT or SVT in the bilateral lower extremities. The bilateral peroneal veins were not visualized and the bilateral posterior tibial veins were poorly visualized. Soft tissue edema Critical Notification Critical Value: No Physician Notified Date: 04/30/2021 Time: 14:02 Physician Name: Vandana Electronically signed by : Jonnathan Meredith MD 04/30/2021 14:45:26
--- NOTE | 2021-04-30 12:50 | XR_ITS ---
PROCEDURE: XR CHEST PORTABLE CLINICAL HISTORY: cough COMPARISON: CT ABDPELW/O CT ABD PELVIS W/O CONTRAST from 05/12/2015 CR XR CHEST PORTABLE from 05/04/2020 CR XR CHEST PORTABLE from 12/29/2020 CR XR CHEST PORTABLE from 01/08/2021 FINDINGS: The cardiomediastinal silhouette and pulmonary vascularity are within normal limits. There is increased density in the lower lung zones on both sides right greater than left. Much of this is felt to be related overlying soft tissue attenuation. Cannot exclude the possibility a chronic infiltrate in the right lower lobe. Upright PA and lateral chest may provide further evaluation No acute bony abnormalities. IMPRESSION: Possible right lower lobe infiltrate. Dictated by: Jonnathan Meredith MD 04/30/2021 13:29 Jonnathan Meredith MD in [place] 04/30/2021 13:29
--- NOTE | 2021-04-30 13:20 | PC.NURSE ---
CV lab staff at for doppler
[2021-04-30 13:28] LABS: Coronavirus 19, PCR Not Detected (NotDetected); Influenza A, PCR Not Detected (NotDetected); Influenza B, PCR Not Detected (NotDetected)
[2021-04-30 13:31] LABS: Basophils % 0.5 % (0.1-2.0); Eosinophils # 0.1 K/mm3 (0.0-0.4); Eosinophils % 2.9 % (0.1-12.0); Hemoglobin 10.5 g/dL (14.1-18.0); Lymphocytes # 0.7 K/mm3 (0.7-4.5); Lymphocytes % 19.6 % (10-50); Mean Corpuscular HGB Conc 33.7 g/dL (31.8-35.4); Mean Corpuscular Volume 103.7 fl (80-94); Mean Platelet Volume 8.2 fl (7.4-10.4); Monocytes # 0.3 K/mm3 (0.1-1.0); Monocytes % 8.2 % (1.7-9.3); Neutrophils # 2.4 K/mm3 (1.8-7.8); Neutrophils % 68.8 % (37.0-80.0); Platelet Count 62 K/mm3 (142-424); Red Blood Count 2.99 M/mm3 (4.60-6.20); Red Cell Distribution Width 15.6 % (11.5-17.5); White Blood Count 3.4 K/mm3 (4.8-10.8)
[2021-04-30 13:32] LABS: Chloride 104 mmol/L (98-107); Sodium 136 mmol/L (136-145)
[2021-04-30 13:35] LABS: Alanine Aminotransferase 34 U/L (12-78); Albumin Level 2.8 g/dl (3.5-5.0); Alkaline Phosphatase 145 U/L (38-126); Aspartate Amino Transferase 56 U/L (17-59); Bilirubin,Total 3.7 mg/dl (0.2-1.3); Blood Urea Nitrogen 12 mg/dl (9-20); Calcium 8.2 mg/dl (8.4-10.2); Carbon Dioxide 25 mmol/L (22.0-30.0); Creatinine Clearance Estimated 261 mL/min (50-200); Estimated Glomerular Filt Rate 144 ml/min (>60); GFR (African American) 174 ML/MIN (>60); Globulin 2.9 g/dL (1.3-3.2); Glucose 175 mg/dl (74-100); Lactic Acid 1.7 mmol/L (0.7-2.1); Total Protein,Serum 5.7 g/dl (6.3-8.2)
[2021-04-30 13:38] LABS: Anion Gap 9.6 mEq/L (5-15)
[2021-04-30 13:39] LABS: Potassium 2.6 mmoL/L (3.5-5.1)
--- NOTE | 2021-04-30 13:39 | PC.NURSE ---
notified ER of critical potassium
[2021-04-30 13:44] LABS: NT Pro Brain Natriuretic Pep. 180 pg/mL (0-125)
[2021-04-30 13:55] LABS: Activated Partial Thrombo Time 22.9 seconds (22.8-30.6)
--- NOTE | 2021-04-30 14:22 | HMH.EDGENADL ---
ED Disposition Clinical Impression: Venous stasis, Venous ulcer of left leg, Lymphedema of both lower extremities Lower extremity cellulitis Qualifiers: Laterality: left Qualified Code(s): L03.116 - Cellulitis of left lower limb Disposition: Admitted As Inpatient Condition on Discharge: Good Referrals: Carlos Stantno MD [Primary Care Provider] - - Critical Care Critical Care Time: No Attestation: On 04/30/21, the high probability of a clinically significant, sudden or life threatening deterioration of the following system(s) required my full and direct attention, intervention and personal management. The time I documented below is in addition to time spent performing reported procedures but includes the following listed in this critical care notation. Medical Decision Making - Medical Records Medical records reviewed: Yes: I reviewed the patient's medical records. - Joshua Inquiry Pt receiving controlled substance: No Vital Signs: 04/30/21 12:21 04/30/21 13:31 Temperature 98.4 F Temperature Source Oral Pulse Rate 98 H Pulse Rate [Right Radial] 106 H Respiratory Rate 18 Blood Pressure 125/76 Blood Pressure [Right Arm] 147/80 H Blood Pressure Mean 92 Blood Pressure Mean [Right Arm] 102 Blood Pressure Source [Right Arm] Automatic Cuff Blood Pressure Position [Right Arm] Sitting 02 Sat by Pulse Oximetry 99 96 Oxygen Delivery Method Room Air - Lab Data Lab Results 04/30/21 13:16: WBC 3.4 L, RBC 2.99 L, Hgb 10.5 L, Hct 31.0 L, MCV 103.7 H, MCH 35.0 H, MCHC 33.7, RDW 15.6, Plt Count 62 L, MPV 8.2, Neut % (Auto) 68.8, Lymph % (Auto) 19.6, [place] % (Auto) 8.2, Eos % (Auto) 2.9, Baso % (Auto) 0.5, Neut # (Auto) 2.4, Lymph # (Auto) 0.7, [place] # (Auto) 0.3, Eos # (Auto) 0.1, Baso # (Auto) 0.0 04/30/21 13:16: Sodium 136, Potassium 2.6 L*, Chloride 104, Carbon Dioxide 25, Anion Gap 9.6, BUN 12, Creatinine 0.60 L, Estimated Creat Clear 261, Estimated GFR 144, Est GFR ( Amer) 174, Glucose 175 H, Calcium 8.2 L, Total Bilirubin 3.7 H, AST 56, ALT 34, Alkaline Phosphatase 145 H, Total Protein 5.7 L, Albumin 2.8 L, Globulin 2.9, Albumin/Globulin Ratio 1.0 L 04/30/21 13:16: PT 14.0 H, INR 1.20 H, APTT 22.9 04/30/21 13:16: Lactate 1.7 04/30/21 13:16: NT-Pro-B Natriuret Pep 180 H 04/30/21 13:16: SARS-CoV-2 (PCR) Not detected, Influenza A Untype (PCR) Not detected, Influenza Type B (PCR) Not detected Result diagrams: 04/30/21 13:16 04/30/21 13:16 Orders (Tests/Meds): ED MEDICATIONS Generic Name Dose Route Start Last Admin Trade Name Freq PRN Reason Stop Dose Admin Piperacillin Sod/Tazobactam 100 mls @ 200 mls/hr 04/30/21 14:00 Sod 4.5 gm/ Sodium Chloride IV 05/14/21 13:59 Q8H CJ Vancomycin HCl 2,000 mg/ 250 mls @ 125 mls/hr 04/30/21 15:00 Sodium Chloride IV 05/14/21 14:59 Q8H CJ Discontinued Medications Generic Name Dose Route Start Last Admin Trade Name Freq PRN Reason Stop Dose Admin Miscellaneous 1 each 04/30/21 14:00 Vancomycin Consult Request * 05/30/21 13:59 [facility] Potassium Chloride 60 meq 04/30/21 13:56 Potassium Chloride 20meq Tab PO 04/30/21 13:57 ONCE ONE ORDERS Category Date Time Status Blood Culture Stat Micro 04/30/21 13:16 Received Medical Decision Narrative: 46-year-old male presented to the emergency department with some bilateral lower extremity swelling. Patient has findings consistent with cellulitis. Appears to be extending from previously. Ultrasounds will be obtained. Patient started on broad-spectrum antibiotics. General Adult HPI - General Chief complaint: Skin/Abscess/Foreign Body Stated complaint: Swelling/drainage in legs Time Seen by Provider: 04/30/21 12:30 Mode of Arrival: Ambulatory Limitations: No Limitations Description of Symptoms (Recalled from ER Triage Doc. by RN): pt has 3+ edema and redness in BLE. Pt has wounds x3 on LLE that are weeping. Pt reports has had s
--- NOTE | 2021-04-30 14:24 | HMH.PHACONS ---
- Pharmacy Consult Date: 04/30/21 Time: 14:24 Referring provider: DR. RAO Reason for Consult:: VANCOMYCIN CONSULT Allergies and ADEs:: Allergies Allergy/AdvReac Type Severity Reaction Status Date / Time codeine Allergy Severe Anaphylaxis Verified 04/27/21 11:36 guaifenesin [From Mucinex] Allergy Severe SWELLS Verified 04/27/21 11:36 ketorolac [From Toradol] Allergy Severe Difficulty Verified 04/27/21 11:36 Swallowing Home Medications:: Home Medications Medication Instructions Recorded Confirmed Type Collagenase Clostridium Hist. 1 applicatio TP DAILY 12/30/20 02/05/21 History [Santyl Ointment 30gm] Fluticasone/Umeclidin/Vilanter 1 puff IH DAILY 12/30/20 02/05/21 History [Trelegy Ellipta 200-62.5-25] furosemide 20 mg tablet 20 mg PO DAILY PRN #30 tab 04/27/21 Rx gabapentin 800 mg tablet 800 mg PO TID #45 tab 04/27/21 04/27/21 Rx lactulose 10 gram/15 mL oral 10 g PO ml 04/27/21 04/27/21 History solution lisinopril 20 1 tab PO DAILY #30 tab 04/27/21 04/27/21 Rx mg-hydrochlorothiazide 25 mg tablet pantoprazole 40 mg tablet,delayed 40 mg PO tab 04/27/21 04/27/21 History release rifaximin 550 mg tablet 550 mg PO tab 04/27/21 04/27/21 History Height: 1.75 m Weight: 122.47 kg Laboratory Results:: Laboratory Results - last 24 hr 04/30/21 13:16: WBC 3.4 L, RBC 2.99 L, Hgb 10.5 L, Hct 31.0 L, MCV 103.7 H, MCH 35.0 H, MCHC 33.7, RDW 15.6, Plt Count 62 L, MPV 8.2, Neut % (Auto) 68.8, Lymph % (Auto) 19.6, [place] % (Auto) 8.2, Eos % (Auto) 2.9, Baso % (Auto) 0.5, Neut # (Auto) 2.4, Lymph # (Auto) 0.7, [place] # (Auto) 0.3, Eos # (Auto) 0.1, Baso # (Auto) 0.0 04/30/21 13:16: Sodium 136, Potassium 2.6 L*, Chloride 104, Carbon Dioxide 25, Anion Gap 9.6, BUN 12, Creatinine 0.60 L, Estimated Creat Clear 261, Estimated GFR 144, Est GFR ( Amer) 174, Glucose 175 H, Calcium 8.2 L, Total Bilirubin 3.7 H, AST 56, ALT 34, Alkaline Phosphatase 145 H, Total Protein 5.7 L, Albumin 2.8 L, Globulin 2.9, Albumin/Globulin Ratio 1.0 L 04/30/21 13:16: PT 14.0 H, INR 1.20 H, APTT 22.9 04/30/21 13:16: Lactate 1.7 04/30/21 13:16: NT-Pro-B Natriuret Pep 180 H 04/30/21 13:16: SARS-CoV-2 (PCR) Not detected, Influenza A Untype (PCR) Not detected, Influenza Type B (PCR) Not detected Medical History: Reports:: Chronic Obstructive Pulmonary Disease (COPD), Diabetes Mellitus Type 2, Hypertension Denies:: Cancer, Diabetes Mellitus Type 1, MRSA, Seizures Assessment and Plan - Assessment and plan all Dx Assessment and Plan for all problems:: Age: 46 yo Serum creatinine: 0.6 mg/dL Height: 69.0 Inches Weight (kg): 122.5 Assessment: IBW (kg): 70.70 Dosing wt(kg): 122.5 Estimated Creatinine clearance (ml/min): 130 Clearance limited to 130 ml/min to reduce risk of overdosing. CRCL method: Cockcroft and Gault using ibw(default). Drug selected: Vancomycin Loading dose (mg): 0 Vd (liters): 98.0 (factor used: 0.8 L/kg) Emilio (hr-1): 0.112 Half life (hrs): 6.19 Recommended dose: 2000 mg Interval: 8 hrs Infusion time (hrs): 2.0 Predicted peak (mcg/mL): 30.9 Predicted trough (mcg/mL): 15.78 Total body weight is being used for vancomycin dosing. Recommendations: Give Vancomycin 2000 mg q 8 hrs with an expected Cpeak of 30.9 mcg/ml and an expected Ctrough of 15.78 mcg/ml ----Vanco only - ignore for aminoglycosides----- CLvanco= 10.98 L/hr AUC 0-24 /MILTON Data: MILTON 0.5 mcg/mL: AUC/MILTON: 1092.9 MILTON 1.0 mcg/mL: AUC/MILTON: 546.4 --------- MILTON 1.5 mcg/mL: AUC/MILTON: 364.3 MILTON 2.0 mcg/mL: AUC/MILTON: 273.2 Thank you for the consult, will continue to follow.
--- NOTE | 2021-04-30 14:25 | PC.NURSE ---
notified care management of admission, spoke with Lary. ER MD spoke with Dr. Stanton for admission
--- NOTE | 2021-04-30 15:27 | PC.NURSE ---
1427 bed assignment requested, room 210. all staff notified
--- NOTE | 2021-04-30 15:29 | PC.NURSE ---
report called to diomedes calderon at this time.
--- NOTE | 2021-04-30 20:07 | HMH.HP ---
*Admission Date: 04/30/21 *Chief complaint: cellulitis *History of present illness: Patient is a 46-year-old white male, known to me from the office, who was admitted through the emergency room earlier today with cellulitis of his left lower extremity. Patient is a nondiabetic, has had recurrent episodes of cellulitis in both lower extremities. His hospital courses have been fairly extensive. Patient had a large open nonhealing ulcer on the dorsum of his right foot. This has granulated in nicely. Patient has several ulcerated skin lesions on the left anterior calf. When seen in the office fairly recently these did not look overtly infected. Patient did have some edema at that point which has progressed. It appears that he is culturing MRSA from the wound. Patient was incarcerated recently for 45 days, exposure to MRSA is highly probable. Infection through ulcerated skin lesions is the most probable mechanism. Patient is data supposed a remote tips procedure. He has recently been placed on Xifaxan and lactulose. He relays having elevated ammonia levels. He was at his mentation baseline when I saw him in the office, remains at his baseline tonight. We will be following his ammonia level. Patient's labs in the ER are reviewed. He has a low potassium at 2.6, which may have been attributable to his recent use of diuretics. Patient also has a diminished platelet count of 62,000. This could reflect chronic liver disease. Body habitus precludes palpation of the spleen. [facility] History Medical History: Reports:: Chronic Obstructive Pulmonary Disease (COPD), Hypertension Denies:: Cancer, Diabetes Mellitus Type 1, Diabetes Mellitus Type 2, MRSA, Seizures *Have you ever received a pneumonia vaccine?: No *Have you received a flu vaccine this season?: No Other Medical History: Reports: Anemia, Arthritis, Hypothyroidism, Liver Disease. Denies: Blood Transfusion Reaction Laterality Cases: Bilateral: Tonsillectomy, Other Other Surgeries: Yes: Ureter Stent, Other Amputation: No Fractures: Yes - *Social History Smoking Status: Current every day smoker Tobacco Type: smokeless tobacco # Packs/Day (cigarettes): 1 Alcohol Intake: never Substance Use Type: methamphetamine *Occupational Status:: disabled Housing: house Household Members: none *Travel in the last 8 weeks: None Family Hx:: No significant family history Review of Systems - Constitutional Reports daytime sleepiness, Reports weakness, Reports weight gain, Denies chills - Eyes Denies change in vision - ENT Denies abnormal hearing - *Cardiovascular Denies chest pain - *Respiratory Denies chest congestion - *Gastrointestinal Denies abdominal pain - *Genitourinary Denies difficulty urinating - *Musculoskeletal Reports limited joint movement, Reports muscle weakness - Integumentary/Breasts Reports changing lesions, Reports redness, Reports lesions, Reports new lesions, Reports skin ulcer, Reports sores, Reports wounds, Denies yellowing of the skin - *Neurologic Reports abnormal walking, Reports tingling/numbness/burning sensations, Reports weakness, Denies headache(s) - Psychiatric Reports lack of enjoyment - Endocrine Denies rapid, pounding, or irregular heartbeat - Hematologic/Lymphatic Denies easy bleeding, Denies easy bruising - Allergic/Immunologic Denies hives Meds Home Medications Medication Instructions Recorded Confirmed Type Collagenase Clostridium Hist. 1 applicatio TP DAILY 12/30/20 04/30/21 History [Santyl Ointment 30gm] Fluticasone/Umeclidin/Vilanter 1 puff IH DAILY 12/30/20 04/30/21 History [Trelegy Ellipta 200-62.5-25] furosemide 20 mg tablet 20 mg PO DAILY PRN #30 tab 04/27/21 04/30/21 Rx lactulose 10 gram/15 mL oral 10 g PO QID ml 04/27/21 04/30/21 History solution pantoprazole 40 mg tablet,delayed 40 mg PO DAILY tab 04/27/21 04/30/21 History release Gabapentin 800 mg PO TID 04/30/21 04/30/21 History Lisinopril/H
[2021-04-30 21:14] LABS: Chloride 101 mmol/L (98-107); Sodium 137 mmol/L (136-145)
[2021-04-30 21:17] LABS: Alanine Aminotransferase 34 U/L (12-78); Albumin Level 2.9 g/dl (3.5-5.0); Albumin/Globulin Ratio 0.9 (1.1-1.8); Alkaline Phosphatase 157 U/L (38-126); Anion Gap 8.7 mEq/L (5-15); Aspartate Amino Transferase 57 U/L (17-59); Bilirubin,Total 4.4 mg/dl (0.2-1.3); Blood Urea Nitrogen 11 mg/dl (9-20); Carbon Dioxide 30 mmol/L (22.0-30.0); Creatinine Clearance Estimated 146 mL/min (50-200); Estimated Glomerular Filt Rate 144 ml/min (>60); GFR (African American) 174 ML/MIN (>60); Globulin 3.2 g/dL (1.3-3.2); Potassium 2.7 mmoL/L (3.5-5.1); Total Protein,Serum 6.1 g/dl (6.3-8.2)
[2021-04-30 21:18] LABS: Ammonia 78 umol/L (9-30); Calcium 8.2 mg/dl (8.4-10.2); Glucose 101 mg/dl (74-100)
[2021-05-01] VITALS: BP 142/87; PULSE 94; RESP 12; TEMP 36.6; O2SAT 100
[2021-05-01 04:00] VITALS: BP 148/73; PULSE 90; RESP 14; TEMP 36.9; O2SAT 95
--- NOTE | 2021-05-01 04:30 | PC.NURSE ---
pt AxOx4, has remained on room air, has complained of pain twice and was treated per MAR
[2021-05-01 07:42] LABS: Basophils % 0.4 % (0.1-2.0); Eosinophils # 0.1 K/mm3 (0.0-0.4); Eosinophils % 4.5 % (0.1-12.0); Hematocrit 32.1 % (42.0-52.0); Hemoglobin 10.7 g/dL (14.1-18.0); Lymphocytes # 0.4 K/mm3 (0.7-4.5); Lymphocytes % 14.8 % (10-50); Mean Corpuscular HGB Conc 33.3 g/dL (31.8-35.4); Mean Corpuscular Hemoglobin 34.9 pg (27.0-31.2); Mean Corpuscular Volume 104.9 fl (80-94); Mean Platelet Volume 8.9 fl (7.4-10.4); Monocytes # 0.2 K/mm3 (0.1-1.0); Monocytes % 8.1 % (1.7-9.3); Neutrophils # 1.7 K/mm3 (1.8-7.8); Neutrophils % 72.3 % (37.0-80.0); Platelet Count 56 K/mm3 (142-424); Red Blood Count 3.06 M/mm3 (4.60-6.20); Red Cell Distribution Width 15.4 % (11.5-17.5); White Blood Count 2.4 K/mm3 (4.8-10.8)
[2021-05-01 07:57] LABS: Alanine Aminotransferase 32 U/L (12-78); Albumin Level 2.6 g/dl (3.5-5.0); Albumin/Globulin Ratio 0.9 (1.1-1.8); Alkaline Phosphatase 136 U/L (38-126); Anion Gap 6.8 mEq/L (5-15); Aspartate Amino Transferase 49 U/L (17-59); Bilirubin,Total 3.6 mg/dl (0.2-1.3); Blood Urea Nitrogen 9 mg/dl (9-20); Calcium 8.1 mg/dl (8.4-10.2); Carbon Dioxide 32 mmol/L (22.0-30.0); Chloride 100 mmol/L (98-107); Creatinine Clearance Estimated 175 mL/min (50-200); Estimated Glomerular Filt Rate 177 ml/min (>60); GFR (African American) 215 ML/MIN (>60); Glucose 116 mg/dl (74-100); Sodium 136 mmol/L (136-145); Total Protein,Serum 5.6 g/dl (6.3-8.2)
[2021-05-01 08:00] VITALS: BP 166/81; PULSE 87; RESP 18; TEMP 36.7; O2SAT 97
[2021-05-01 08:06] LABS: Potassium 2.8 mmoL/L (3.5-5.1)
--- NOTE | 2021-05-01 08:17 | PC.NURSE ---
0805- spoke to makenzie in lab regarding pt's critical k+. verified name, and room [place] [id number]- spoke to MD Resendez. NNO at this time, will round on pt shortly and will makes changes if needed
--- NOTE | 2021-05-01 10:39 | HMH.ACPN2 ---
Internal Medicine - PN: Subj *Date: 05/01/21 *Time: 23:52 Interval history: doing better - low plt - will stop lovenox - has low k Exam Vital signs and Labs for Last 24 Hours: Temp Pulse Resp BP Pulse Ox 98.1 F 87 18 166/81 H 97 05/01/21 08:00 05/01/21 08:00 05/01/21 08:00 05/01/21 08:00 05/01/21 08:00 Laboratory Results - last 24 hr 04/30/21 13:16: WBC 3.4 L, RBC 2.99 L, Hgb 10.5 L, Hct 31.0 L, MCV 103.7 H, MCH 35.0 H, MCHC 33.7, RDW 15.6, Plt Count 62 L, MPV 8.2, Neut % (Auto) 68.8, Lymph % (Auto) 19.6, [place] % (Auto) 8.2, Eos % (Auto) 2.9, Baso % (Auto) 0.5, Neut # (Auto) 2.4, Lymph # (Auto) 0.7, [place] # (Auto) 0.3, Eos # (Auto) 0.1, Baso # (Auto) 0.0 04/30/21 13:16: Sodium 136, Potassium 2.6 L*, Chloride 104, Carbon Dioxide 25, Anion Gap 9.6, BUN 12, Creatinine 0.60 L, Estimated Creat Clear 261, Estimated GFR 144, Est GFR ( Amer) 174, Glucose 175 H, Calcium 8.2 L, Total Bilirubin 3.7 H, AST 56, ALT 34, Alkaline Phosphatase 145 H, Total Protein 5.7 L, Albumin 2.8 L, Globulin 2.9, Albumin/Globulin Ratio 1.0 L 04/30/21 13:16: PT 14.0 H, INR 1.20 H, APTT 22.9 04/30/21 13:16: Lactate 1.7 04/30/21 13:16: NT-Pro-B Natriuret Pep 180 H 04/30/21 13:16: SARS-CoV-2 (PCR) Not detected, Influenza A Untype (PCR) Not detected, Influenza Type B (PCR) Not detected 04/30/21 20:54: Sodium 137, Potassium 2.7 L*, Chloride 101, Carbon Dioxide 30, Anion Gap 8.7, BUN 11, Creatinine 0.60 L, Estimated Creat Clear 146, Estimated GFR 144, Est GFR ( Amer) 174, Glucose 101 H D, Calcium 8.2 L, Total Bilirubin 4.4 H, AST 57, ALT 34, Alkaline Phosphatase 157 H, Total Protein 6.1 L, Albumin 2.9 L, Globulin 3.2, Albumin/Globulin Ratio 0.9 L 04/30/21 20:54: Ammonia 78 H 05/01/21 07:18: WBC 2.4 L D, RBC 3.06 L, Hgb 10.7 L, Hct 32.1 L, MCV 104.9 H, MCH 34.9 H, MCHC 33.3, RDW 15.4, Plt Count 56 L, MPV 8.9, Neut % (Auto) 72.3, Lymph % (Auto) 14.8, [place] % (Auto) 8.1, Eos % (Auto) 4.5, Baso % (Auto) 0.4, Neut # (Auto) 1.7 L, Lymph # (Auto) 0.4 L, [place] # (Auto) 0.2, Eos # (Auto) 0.1, Baso # (Auto) 0.0 05/01/21 07:18: Sodium 136, Potassium 2.8 L*, Chloride 100, Carbon Dioxide 32 H, Anion Gap 6.8, BUN 9, Creatinine 0.50 L, Estimated Creat Clear 175, Estimated GFR 177, Est GFR ( Amer) 215 D, Glucose 116 H, Calcium 8.1 L, Total Bilirubin 3.6 H, AST 49, ALT 32, Alkaline Phosphatase 136 H, Total Protein 5.6 L, Albumin 2.6 L D, Globulin 3.0, Albumin/Globulin Ratio 0.9 L I & O for Last 24 hours: Intake & Output 04/28/21 04/29/21 04/30/21 05/01/21 11:59 11:59 11:59 11:59 Intake Total 960 / 960 Output Total 1825 / 1825 Balance -865 / -865 Weight 273 lb - Constitutional obese - *Routine HEENT Exam Head: Present: normocephalic Eye: Present: EOMI, PERRL ENT: Present: mucous membranes dry - *Routine Neck Exam Absent: JVD - *Routine Respiratory Exam Present: decreased breath sounds - *Routine Cardiovascular Exam Present: RRR - *Routine Abdominal Exam Present: soft - *Routine Extremities Exam Comments: chronic edema and has cellulitis changes to lower ext - *Routine Skin Exam Comments: cellulitis lower ext bilat - *Routine Neurological Exam Present: alert, CN II-XII intact - Routine Psychiatric Exam Present: cooperative Assessment and Plan (1) Lower extremity cellulitis Status: Acute Qualifiers: Laterality: left Qualified Code(s): L03.116 - Cellulitis of left lower limb Category: Medical Code(s): L03.119 - Cellulitis of unspecified part of limb (2) Lymphedema of both lower extremities Status: Chronic Category: Medical Code(s): I89.0 - Lymphedema, not elsewhere classified (3) Venous stasis Status: Chronic Category: Medical Code(s): I87.8 - Other specified disorders of veins (4) Venous ulcer of left leg Status: Acute Category: Medical Code(s): I83.029 - Varicose veins of left lower extremity with ulcer of unspecified site; L97.929 - Non-pressure chronic ulcer
[2021-05-01 12:00] VITALS: BP 154/78; PULSE 73; RESP 19; TEMP 36.6; O2SAT 96
--- NOTE | 2021-05-01 13:29 | HMH.PHAVTE ---
[facility] Pharmacy VTE Monitoring - Patient Demographics Admission date: 04/30/21 Report Date: 05/01/21 Time: 13:29 Allergies/Adverse Reactions: Patient Allergies codeine Allergy (Severe, Verified 04/27/21 11:36) Anaphylaxis guaifenesin [From Mucinex] Allergy (Severe, Verified 04/27/21 11:36) SWELLS ketorolac [From Toradol] Allergy (Severe, Verified 04/27/21 11:36) Difficulty Swallowing Height: 1.75 m Weight: 123.831 kg Patient Problems: Current Active Problems Noncompliance (Chronic) Venous stasis (Chronic) Venous ulcer of left leg (Acute) Lower extremity cellulitis (Acute) Tobacco abuse (Chronic) Lymphedema of both lower extremities (Chronic) Neutropenia (Chronic) MRSA (methicillin resistant staph aureus) culture positive (Acute) COPD (chronic obstructive pulmonary disease) (Chronic) Cellulitis (Acute) Obesity (Chronic) History of hypertension (Chronic) Bilateral lower extremity edema (Chronic) Uncontrolled pain (Chronic) Thrombocythemia (Acute) Cellulitis of left leg (Acute) Cirrhosis (Chronic) Chronic pain (Chronic) Hypertension (Chronic) - VTE Risk Labs: VTE Related Lab Results Hgb 10.7 g/dL (14.1-18.0) L 05/01/21 07:18 Hct 32.1 % (42.0-52.0) L 05/01/21 07:18 Plt Count 56 K/mm3 (142-424) L 05/01/21 07:18 PT 14.0 seconds (10.1-12.5) H 04/30/21 13:16 INR 1.20 (0.9-1.1) H 04/30/21 13:16 APTT 22.9 seconds (22.8-30.6) 04/30/21 13:16 BUN 9 mg/dl (9-20) 05/01/21 07:18 Creatinine 0.50 mg/dl (0.66-1.25) L 05/01/21 07:18 Estimated Creat Clear 175 mL/min (50-200) 05/01/21 07:18 VTE Score: 6 VTE Risk Level: Moderate Risk - Prophylaxis VTE Prophylaxis Ordered?: No If no, why not: PATIENT HAS LOW PLT AND IS NEGATIVE FOR DVT. PATIENT IS ALSO MOBILE Types of VTE Prophylaxis: Not Applicable Location of Applied Device: Not Applicable
--- NOTE | 2021-05-01 13:43 | HMH.PHAINT ---
MEDICATION RECONCILIATION COMPLETED ON PATIENT USING EXTERNAL FILL HISTORY FROM PHARMACY. -SILVA BOWLES, EDILIAD
[2021-05-01 15:18] LABS: Vancomycin,Trough 18.8 ug/mL (5.0-10.0)
[2021-05-01 16:00] VITALS: BP 160/89; PULSE 91; RESP 18; TEMP 36.7; O2SAT 100
[2021-05-01 19:26] LABS: Vancomycin,Peak 14.4 ug/ml (11-39)
[2021-05-01 20:00] VITALS: BP 167/77; PULSE 95; RESP 18; TEMP 36.8; O2SAT 100
[2021-05-02] VITALS: BP 164/94; PULSE 103; RESP 20; TEMP 37.1; O2SAT 98
--- NOTE | 2021-05-02 03:49 | PC.NURSE ---
pt is AxOx4, has remained on room air t/o shift, has complained of pain one time and was treated per OCT, showered this shift
[2021-05-02 04:00] VITALS: BP 152/78; PULSE 104; RESP 18; TEMP 36.6; O2SAT 96
[2021-05-02 05:01] VITALS: BMI 42.9
[2021-05-02 07:17] LABS: Basophils % 0.6 % (0.1-2.0); Eosinophils # 0.1 K/mm3 (0.0-0.4); Hematocrit 32.7 % (42.0-52.0); Hemoglobin 10.6 g/dL (14.1-18.0); Lymphocytes # 0.6 K/mm3 (0.7-4.5); Lymphocytes % 26.3 % (10-50); Mean Corpuscular HGB Conc 32.4 g/dL (31.8-35.4); Mean Corpuscular Volume 104.9 fl (80-94); Mean Platelet Volume 8.2 fl (7.4-10.4); Monocytes # 0.2 K/mm3 (0.1-1.0); Monocytes % 8.4 % (1.7-9.3); Neutrophils # 1.3 K/mm3 (1.8-7.8); Neutrophils % 58.7 % (37.0-80.0); Platelet Count 60 K/mm3 (142-424); Red Blood Count 3.12 M/mm3 (4.60-6.20); Red Cell Distribution Width 15.5 % (11.5-17.5); White Blood Count 2.2 K/mm3 (4.8-10.8)
[2021-05-02 07:37] LABS: Anion Gap 8.6 mEq/L (5-15); Blood Urea Nitrogen 9 mg/dl (9-20); Calcium 8.1 mg/dl (8.4-10.2); Carbon Dioxide 29 mmol/L (22.0-30.0); Chloride 100 mmol/L (98-107); Creatinine Clearance Estimated 146 mL/min (50-200); Estimated Glomerular Filt Rate 144 ml/min (>60); GFR (African American) 174 ML/MIN (>60); Glucose 100 mg/dl (74-100); Sodium 135 mmol/L (136-145)
[2021-05-02 07:42] LABS: Potassium 2.6 mmoL/L (3.5-5.1)
[2021-05-02 08:00] VITALS: BP 145/80; PULSE 98; RESP 17; TEMP 36.8; O2SAT 98
--- NOTE | 2021-05-02 11:14 | HMH.ACPN2 ---
Internal Medicine - PN: Subj *Date: 05/02/21 *Time: 11:14 Interval history: doing better - leg look better Exam Vital signs and Labs for Last 24 Hours: Temp Pulse Resp BP Pulse Ox 98.3 F 98 H 17 145/80 H 98 05/02/21 08:00 05/02/21 08:00 05/02/21 08:00 05/02/21 08:00 05/02/21 08:00 Laboratory Results - last 24 hr 05/01/21 14:38: Vancomycin Trough 18.8 H 05/01/21 18:55: Vancomycin Peak 14.4 05/02/21 07:00: WBC 2.2 L, RBC 3.12 L, Hgb 10.6 L, Hct 32.7 L, MCV 104.9 H, MCH 34.0 H, MCHC 32.4, RDW 15.5, Plt Count 60 L, MPV 8.2, Neut % (Auto) 58.7, Lymph % (Auto) 26.3, [place] % (Auto) 8.4, Eos % (Auto) 6.0, Baso % (Auto) 0.6, Neut # (Auto) 1.3 L, Lymph # (Auto) 0.6 L, [place] # (Auto) 0.2, Eos # (Auto) 0.1, Baso # (Auto) 0.0 05/02/21 07:00: Sodium 135 L, Potassium 2.6 L*, Chloride 100, Carbon Dioxide 29, Anion Gap 8.6, BUN 9, Creatinine 0.60 L, Estimated Creat Clear 146, Estimated GFR 144, Est GFR ( Amer) 174, Glucose 100, Calcium 8.1 L I & O for Last 24 hours: Intake & Output 04/29/21 04/30/21 05/01/21 05/02/21 11:59 11:59 11:59 11:59 Intake Total 960 / 960 1520 / 1520 Output Total 1825 / 2325 1200 / 1200 Balance -865 / -1365 320 / 320 Weight 273 lb 290 lb Microbiology Reports for the Last 24 Hours: Microbiology 05/02/21 10:05 Leg,Left - Not Otherwise Specified Gram Stain - Final - Constitutional no acute distress, obese - *Routine HEENT Exam Head: Present: normocephalic Eye: Present: EOMI, PERRL ENT: Present: mucous membranes dry - *Routine Neck Exam Present: supple - *Routine Respiratory Exam Present: CTA bilaterally - *Routine Cardiovascular Exam Present: RRR, murmur - *Routine Abdominal Exam Present: soft - *Routine Extremities Exam Present: pulses intact - *Routine Skin Exam Present: intact - *Routine Neurological Exam Present: alert, CN II-XII intact - Routine Psychiatric Exam Present: cooperative Assessment and Plan (1) Lower extremity cellulitis Status: Acute Qualifiers: Laterality: left Qualified Code(s): L03.116 - Cellulitis of left lower limb Category: Medical Code(s): L03.119 - Cellulitis of unspecified part of limb (2) Lymphedema of both lower extremities Status: Chronic Category: Medical Code(s): I89.0 - Lymphedema, not elsewhere classified (3) Venous stasis Status: Chronic Category: Medical Code(s): I87.8 - Other specified disorders of veins (4) Venous ulcer of left leg Status: Acute Category: Medical Code(s): I83.029 - Varicose veins of left lower extremity with ulcer of unspecified site; L97.929 - Non-pressure chronic ulcer of unspecified part of left lower leg with unspecified severity (5) COPD (chronic obstructive pulmonary disease) Status: Chronic Category: Medical Code(s): J44.9 - Chronic obstructive pulmonary disease, unspecified (6) Cellulitis Status: Acute Qualifiers: Site of cellulitis: extremity Site of cellulitis of extremity: lower extremity Laterality: right Qualified Code(s): L03.115 - Cellulitis of right lower limb Category: Medical Code(s): L03.90 - Cellulitis, unspecified (7) Cellulitis of left leg Status: Acute Category: Medical Code(s): L03.116 - Cellulitis of left lower limb (8) History of hypertension Status: Chronic Category: Medical Code(s): Z86.79 - Personal history of other diseases of the circulatory system (9) MRSA (methicillin resistant staph aureus) culture positive Status: Acute Category: Medical Code(s): Z22.322 - Carrier or suspected carrier of Methicillin resistant Staphylococcus aureus (10) Neutropenia Status: Chronic Qualifiers: Neutropenia type: unspecified Qualified Code(s): D70.9 - Neutropenia, unspecified Category: Medical Code(s): D70.9 - Neutropenia, unspecified (11) Noncompliance Status: Chronic Category: Medical Code(s): Z91.19 - Patient's noncompliance with other medical treatme
--- NOTE | 2021-05-02 12:35 | HMH.PHACONS ---
- Pharmacy Consult Date: 05/02/21 Time: 12:35 Referring provider: DR. LEBLANC Reason for Consult:: VANCOMYCIN TROUGH AND PEAK LEVELS Allergies and ADEs:: Allergies Allergy/AdvReac Type Severity Reaction Status Date / Time codeine Allergy Severe Anaphylaxis Verified 04/27/21 11:36 guaifenesin [From Mucinex] Allergy Severe SWELLS Verified 04/27/21 11:36 ketorolac [From Toradol] Allergy Severe Difficulty Verified 04/27/21 11:36 Swallowing Home Medications:: Home Medications Medication Instructions Recorded Confirmed Type Fluticasone/Umeclidin/Vilanter 1 puff IH DAILY 12/30/20 04/30/21 History [Trelegy Ellipta 200-62.5-25] lactulose 10 gram/15 mL oral 20 g PO QID ml 04/27/21 05/01/21 History solution pantoprazole 40 mg tablet,delayed 40 mg PO DAILY tab 04/27/21 04/30/21 History release Gabapentin 800 mg PO TID 04/30/21 04/30/21 History Lisinopril/Hydrochlorothiazide 1 tab PO DAILY 04/30/21 04/30/21 History [Lisinopril-Hctz 20-25 mg Tab*] Furosemide [Furosemide 20mg Tab*] 20 mg PO DAILYP PRN 05/01/21 05/01/21 History Rifaximin [Xifaxan 550mg Tablet] 550 mg PO BID 05/01/21 05/01/21 History Height: 1.75 m Weight: 131.542 kg Laboratory Results:: Laboratory Results - last 24 hr 05/01/21 14:38: Vancomycin Trough 18.8 H 05/01/21 18:55: Vancomycin Peak 14.4 05/02/21 07:00: WBC 2.2 L, RBC 3.12 L, Hgb 10.6 L, Hct 32.7 L, MCV 104.9 H, MCH 34.0 H, MCHC 32.4, RDW 15.5, Plt Count 60 L, MPV 8.2, Neut % (Auto) 58.7, Lymph % (Auto) 26.3, [place] % (Auto) 8.4, Eos % (Auto) 6.0, Baso % (Auto) 0.6, Neut # (Auto) 1.3 L, Lymph # (Auto) 0.6 L, [place] # (Auto) 0.2, Eos # (Auto) 0.1, Baso # (Auto) 0.0 05/02/21 07:00: Sodium 135 L, Potassium 2.6 L*, Chloride 100, Carbon Dioxide 29, Anion Gap 8.6, BUN 9, Creatinine 0.60 L, Estimated Creat Clear 146, Estimated GFR 144, Est GFR ( Amer) 174, Glucose 100, Calcium 8.1 L Medical History: Reports:: Chronic Obstructive Pulmonary Disease (COPD), Hypertension Denies:: Cancer, Diabetes Mellitus Type 1, Diabetes Mellitus Type 2, MRSA, Seizures Assessment and Plan (1) Lower extremity cellulitis Status: Acute Qualifiers: Laterality: left Qualified Code(s): L03.116 - Cellulitis of left lower limb Category: Medical Code(s): L03.119 - Cellulitis of unspecified part of limb (2) Lymphedema of both lower extremities Status: Chronic Category: Medical Code(s): I89.0 - Lymphedema, not elsewhere classified (3) Venous stasis Status: Chronic Category: Medical Code(s): I87.8 - Other specified disorders of veins (4) Venous ulcer of left leg Status: Acute Category: Medical Code(s): I83.029 - Varicose veins of left lower extremity with ulcer of unspecified site; L97.929 - Non-pressure chronic ulcer of unspecified part of left lower leg with unspecified severity (5) COPD (chronic obstructive pulmonary disease) Status: Chronic Category: Medical Code(s): J44.9 - Chronic obstructive pulmonary disease, unspecified (6) Cellulitis Status: Acute Qualifiers: Site of cellulitis: extremity Site of cellulitis of extremity: lower extremity Laterality: right Qualified Code(s): L03.115 - Cellulitis of right lower limb Category: Medical Code(s): L03.90 - Cellulitis, unspecified (7) Cellulitis of left leg Status: Acute Category: Medical Code(s): L03.116 - Cellulitis of left lower limb (8) History of hypertension Status: Chronic Category: Medical Code(s): Z86.79 - Personal history of other diseases of the circulatory system (9) MRSA (methicillin resistant staph aureus) culture positive Status: Acute Category: Medical Code(s): Z22.322 - Carrier or suspected carrier of Methicillin resistant Staphylococcus aureus (10) Neutropenia Status: Chronic Qualifiers: Neutropenia type: unspecified Qualified Code(s): D70.9 - Neutropenia, unspecified Category: Medical Code(s): D70.9 - Neutropenia, unspecified (11) Noncomplia
[2021-05-02 15:44] VITALS: BP 152/84; PULSE 90; RESP 18; TEMP 36.7; O2SAT 99
[2021-05-02 18:49] VITALS: BMI 42.9
[2021-05-02 20:00] VITALS: BP 135/61; PULSE 106; RESP 17; TEMP 36.7; O2SAT 98
--- NOTE | 2021-05-03 03:53 | PC.NURSE ---
Shift summary. No acute changes. Pt has been pleasant and cooperative t/o shift. Pt able to ambulate to bathroom and around room independently. Pt c/o pain 1x during shift and was administered Morphine per OCT. Pt has been up to the chair for first half of shift and is now resting in bed. CB in reach. Will continue to monitor.
[2021-05-03 04:00] VITALS: BP 154/98; PULSE 95; RESP 18; TEMP 36.7; O2SAT 100
[2021-05-03 04:58] VITALS: BMI 43.1
[2021-05-03 07:05] LABS: Basophils % 0.4 % (0.1-2.0); Eosinophils # 0.1 K/mm3 (0.0-0.4); Eosinophils % 4.7 % (0.1-12.0); Hematocrit 32.5 % (42.0-52.0); Hemoglobin 10.7 g/dL (14.1-18.0); Lymphocytes # 0.6 K/mm3 (0.7-4.5); Lymphocytes % 20.8 % (10-50); Mean Corpuscular HGB Conc 32.9 g/dL (31.8-35.4); Mean Corpuscular Hemoglobin 34.8 pg (27.0-31.2); Mean Corpuscular Volume 105.7 fl (80-94); Mean Platelet Volume 8.2 fl (7.4-10.4); Monocytes # 0.3 K/mm3 (0.1-1.0); Monocytes % 9.6 % (1.7-9.3); Neutrophils # 1.8 K/mm3 (1.8-7.8); Neutrophils % 64.4 % (37.0-80.0); Platelet Count 69 K/mm3 (142-424); Red Blood Count 3.07 M/mm3 (4.60-6.20); Red Cell Distribution Width 15.7 % (11.5-17.5); White Blood Count 2.8 K/mm3 (4.8-10.8)
[2021-05-03 07:12] LABS: Anion Gap 8.3 mEq/L (5-15); Blood Urea Nitrogen 11 mg/dl (9-20); Calcium 7.8 mg/dl (8.4-10.2); Carbon Dioxide 30 mmol/L (22.0-30.0); Chloride 101 mmol/L (98-107); Creatinine Clearance Estimated 125 mL/min (50-200); Estimated Glomerular Filt Rate 120 ml/min (>60); GFR (African American) 146 ML/MIN (>60); Glucose 117 mg/dl (74-100); Potassium 3.3 mmoL/L (3.5-5.1); Sodium 136 mmol/L (136-145)
[2021-05-03 08:00] VITALS: BP 150/73; PULSE 95; RESP 18; TEMP 36.9; O2SAT 98
--- NOTE | 2021-05-03 09:33 | HMH.ACPN2 ---
Internal Medicine - PN: Subj *Date: 05/03/21 *Time: 09:33 Exam Vital signs and Labs for Last 24 Hours: Temp Pulse Resp BP Pulse Ox 98.4 F 95 H 18 150/73 H 98 05/03/21 08:00 05/03/21 08:00 05/03/21 08:00 05/03/21 08:00 05/03/21 08:00 Laboratory Results - last 24 hr 05/03/21 06:40: WBC 2.8 L D, RBC 3.07 L, Hgb 10.7 L, Hct 32.5 L, MCV 105.7 H, MCH 34.8 H, MCHC 32.9, RDW 15.7, Plt Count 69 L, MPV 8.2, Neut % (Auto) 64.4, Lymph % (Auto) 20.8, [place] % (Auto) 9.6 H, Eos % (Auto) 4.7, Baso % (Auto) 0.4, Neut # (Auto) 1.8, Lymph # (Auto) 0.6 L, [place] # (Auto) 0.3, Eos # (Auto) 0.1, Baso # (Auto) 0.0 05/03/21 06:40: Sodium 136, Potassium 3.3 L D, Chloride 101, Carbon Dioxide 30, Anion Gap 8.3, BUN 11, Creatinine 0.70, Estimated Creat Clear 125, Estimated GFR 120, Est GFR ( Amer) 146, Glucose 117 H, Calcium 7.8 L I & O for Last 24 hours: Intake & Output 04/30/21 05/01/21 05/02/21 05/03/21 23:59 23:59 23:59 23:59 Intake Total 240 / 240 1520 / 1760 1920 / 1920 480 / 480 Output Total 1075 / 1075 1650 / 1650 900 / 900 Balance -835 / -835 -130 / 110 1020 / 1020 480 / 480 Weight 123.831 kg 131.542 kg 132 kg Microbiology Reports for the Last 24 Hours: Microbiology 05/02/21 10:05 Leg,Left - Not Otherwise Specified Gram Stain - Final 05/02/21 10:05 Leg,Left - Not Otherwise Specified Wound Culture - Preliminary 04/30/21 13:16 Blood Blood Culture - Preliminary NO GROWTH AFTER 48 HOURS 04/30/21 13:16 Blood Blood Culture - Preliminary NO GROWTH AFTER 48 HOURS Assessment and Plan (1) Lower extremity cellulitis Status: Acute Qualifiers: Laterality: left Qualified Code(s): L03.116 - Cellulitis of left lower limb Category: Medical Code(s): L03.119 - Cellulitis of unspecified part of limb (2) Lymphedema of both lower extremities Status: Chronic Category: Medical Code(s): I89.0 - Lymphedema, not elsewhere classified (3) Venous stasis Status: Chronic Category: Medical Code(s): I87.8 - Other specified disorders of veins (4) Venous ulcer of left leg Status: Acute Category: Medical Code(s): I83.029 - Varicose veins of left lower extremity with ulcer of unspecified site; L97.929 - Non-pressure chronic ulcer of unspecified part of left lower leg with unspecified severity (5) COPD (chronic obstructive pulmonary disease) Status: Chronic Category: Medical Code(s): J44.9 - Chronic obstructive pulmonary disease, unspecified (6) Cellulitis Status: Acute Qualifiers: Site of cellulitis: extremity Site of cellulitis of extremity: lower extremity Laterality: right Qualified Code(s): L03.115 - Cellulitis of right lower limb Category: Medical Code(s): L03.90 - Cellulitis, unspecified (7) Cellulitis of left leg Status: Acute Category: Medical Code(s): L03.116 - Cellulitis of left lower limb (8) History of hypertension Status: Chronic Category: Medical Code(s): Z86.79 - Personal history of other diseases of the circulatory system (9) MRSA (methicillin resistant staph aureus) culture positive Status: Acute Category: Medical Code(s): Z22.322 - Carrier or suspected carrier of Methicillin resistant Staphylococcus aureus (10) Neutropenia Status: Chronic Qualifiers: Neutropenia type: unspecified Qualified Code(s): D70.9 - Neutropenia, unspecified Category: Medical Code(s): D70.9 - Neutropenia, unspecified (11) Noncompliance Status: Chronic Category: Medical Code(s): Z91.19 - Patient's noncompliance with other medical treatment and regimen (12) Obesity Status: Chronic Qualifiers: Obesity type: due to excess calories Obesity classification: adult class 3 (BMI >= 40) Serious obesity comorbidity presence: with serious comorbidity Body mass index: BMI 40.0-44.9 Qualified Code(s): E66.01 - Morbid (severe) obesity due to excess calories; Z68.41
--- NOTE | 2021-05-03 15:11 | HMH.DCSUM ---
General - General Admission date:: 04/30/21 Discharge date: 05/03/21 HPI HPI: Patient is a 46-year-old white male, known to me from the office, who was admitted through the emergency room earlier today with cellulitis of his left lower extremity. Patient is a nondiabetic, has had recurrent episodes of cellulitis in both lower extremities. His hospital courses have been fairly extensive. Patient had a large open nonhealing ulcer on the dorsum of his right foot. This has granulated in nicely. Patient has several ulcerated skin lesions on the left anterior calf. When seen in the office fairly recently these did not look overtly infected. Patient did have some edema at that point which has progressed. It appears that he is culturing MRSA from the wound. Patient was incarcerated recently for 45 days, exposure to MRSA is highly probable. Infection through ulcerated skin lesions is the most probable mechanism. Patient is data supposed a remote tips procedure. He has recently been placed on Xifaxan and lactulose. He relays having elevated ammonia levels. He was at his mentation baseline when I saw him in the office, remains at his baseline tonight. We will be following his ammonia level. Patient's labs in the ER are reviewed. He has a low potassium at 2.6, which may have been attributable to his recent use of diuretics. Patient also has a diminished platelet count of 62,000. This could reflect chronic liver disease. Body habitus precludes palpation of the spleen. Hospital Course Hospital Course: pt has slowly improved over the hospital course with ivf abx - cellulitis has improved and his labs have stablized and pt is tolerating diet and activity Objective Vital signs: Temp Pulse Resp BP Pulse Ox 98.4 F 95 H 18 150/73 H 98 05/03/21 08:00 05/03/21 08:00 05/03/21 08:00 05/03/21 08:00 05/03/21 08:00 no acute distress, obese - *Routine HEENT Exam Head: Present: normocephalic Eye: Present: EOMI, PERRL ENT: Present: mucous membranes moist - *Routine Neck Exam Absent: JVD - *Routine Respiratory Exam Present: CTA bilaterally - *Routine Cardiovascular Exam Present: RRR - *Routine Abdominal Exam Present: soft - *Routine Extremities Exam Comments: reddness doing better and less tender - *Routine Skin Exam Comments: cellulitis lower ext - *Routine Neurological Exam Present: alert, CN II-XII intact - Routine Psychiatric Exam Present: normal affect Results Labs on day of discharge: Labs from last 24 hours 05/03/21 05/03/21 06:40 06:40 WBC 2.8 L D RBC 3.07 L Hgb 10.7 L Hct 32.5 L MCV 105.7 H MCH 34.8 H MCHC 32.9 RDW 15.7 Plt Count 69 L MPV 8.2 Neut % (Auto) 64.4 Lymph % (Auto) 20.8 [place] % (Auto) 9.6 H Eos % (Auto) 4.7 Baso % (Auto) 0.4 Neut # (Auto) 1.8 Lymph # (Auto) 0.6 L [place] # (Auto) 0.3 Eos # (Auto) 0.1 Baso # (Auto) 0.0 Sodium 136 Potassium 3.3 L D Chloride 101 Carbon Dioxide 30 Anion Gap 8.3 BUN 11 Creatinine 0.70 Estimated Creat Clear 125 Estimated GFR 120 Est GFR ( Amer) 146 Glucose 117 H Calcium 7.8 L Preliminary micro results at discharge 05/02/21 10:05 Wound Culture - Preliminary Leg,Left - Not Otherwise Specified 04/30/21 13:16 Blood Culture - Preliminary Blood NO GROWTH AFTER 48 HOURS 04/30/21 13:16 Blood Culture - Preliminary Blood NO GROWTH AFTER 48 HOURS DS: Diagnosis - Discharge Diagnosis (1) Lower extremity cellulitis Status: Acute (2) Lymphedema of both lower extremities Status: Chronic (3) Venous stasis Status: Chronic (4) Venous ulcer of left leg Status: Acute (5) COPD (chronic obstructive pulmonary disease) Status: Chronic (6) Cellulitis Status: Acute (7) Cellulitis of left leg Status: Acute (8) History of hypertension Status: Chronic (9) MRSA (methicillin resistant staph a
--- NOTE | 2021-05-03 15:52 | HMH.PHAINT ---
DISCHARGE MEDICATION COUNSELING COMPLETE. PATIENT ENDORSED NO QUESTIONS AT THIS TIME
[2021-05-03 15:58] LABS: Vancomycin,Trough 15.4 ug/mL (5.0-10.0)
[2021-05-03 16:00] VITALS: BP 148/82; PULSE 78; RESP 20; TEMP 36.8; O2SAT 100
== END 2021-05-03 18:30 | disposition home or self-care (01) | DRG 603 ==
LOC: ER 14:47 → 2ND 05-01 07:24
PROVIDERS: Nurse Practitioner Family; Admitting Provider Family Medicine; Emergency Provider Emergency Medicine; PCP Family Medicine; Visit Provider Family Medicine
DX: L03.116 Cellulitis of left lower limb (principal); L97.229 Non-pressure chronic ulcer of left calf with unspecified severity; Z68.41 Body mass index [BMI] 40.0-44.9, adult; Z20.822 Contact with and (suspected) exposure to COVID-19; D70.9 Neutropenia, unspecified; E03.9 Hypothyroidism, unspecified; I89.0 Lymphedema, not elsewhere classified; L97.529 Non-pressure chronic ulcer of other part of left foot with unspecified severity; J44.9 Chronic obstructive pulmonary disease, unspecified; I10 Essential (primary) hypertension; A49.02 Methicillin resistant Staphylococcus aureus infection, unspecified site; Z91.19 Patient's noncompliance with other medical treatment and regimen; K74.60 Unspecified cirrhosis of liver; K72.90 Hepatic failure, unspecified without coma; E87.6 Hypokalemia; F17.220 Nicotine dependence, chewing tobacco, uncomplicated; M19.90 Unspecified osteoarthritis, unspecified site; E66.01 Morbid (severe) obesity due to excess calories; G89.29 Other chronic pain; I73.9 Peripheral vascular disease, unspecified; I83.029 Varicose veins of left lower extremity with ulcer of unspecified site; L03.115 Cellulitis of right lower limb
CPT/HCPCS: 36415; 71045; 80048; 80053; 80202; 82140; 83605; 83880; 85025; 85610; 85730; 87040; 87070; 87077; 87186; 87205; 93970; 96365; 96375; 99284; C9803; J2543; J3370; U0003; U0005

== ENCOUNTER → 2021-05-06 13:07 | Outpatient (CLI) | payer MEDICARE, MEDICAID, SELFPAY | PROVIDERS: Visit Provider Family Medicine | DX: T14.8XXA Other injury of unspecified body region, initial encounter (principal); L03.116 Cellulitis of left lower limb | CPT/HCPCS: 87070; 87077; 87186; 87205 ==

== ENCOUNTER → 2021-05-28 12:53 | Outpatient (CLI) | payer MEDICARE, OTHER, SELFPAY | PROVIDERS: Visit Provider Family Medicine | DX: T14.8XXA Other injury of unspecified body region, initial encounter (principal); L03.116 Cellulitis of left lower limb | CPT/HCPCS: 87070; 87077; 87186; 87205 ==

== ENCOUNTER → 2021-06-10 13:33 | Outpatient (CLI) | payer MEDICARE, OTHER, SELFPAY ==
[2021-06-10 13:59] LABS: Amphetamine/Metha Screen,Urine Positive ng/ml (<1000); Barbiturates Screen,Urine Negative ng/ml (<200)
[2021-06-10 14:00] LABS: Benzodiazepines Screen,Urine Negative ng/ml (<200); Cannabinoid Screen,Urine Negative ng/ml (<50)
[2021-06-10 14:01] LABS: Cocaine Screen,Urine Positive ng/ml (<300)
[2021-06-10 14:02] LABS: Methadone Screen,Urine Negative ng/ml (<300); Opiate Screen,Urine Negative ng/ml (<300)
[2021-06-10 14:03] LABS: Phencyclidine Screen,Urine Negative ng/ml (<25)
== END ==
PROVIDERS: Visit Provider Family Medicine
DX: Z91.19 Patient's noncompliance with other medical treatment and regimen (principal)
CPT/HCPCS: 80305

== ENCOUNTER 2021-06-29 15:00 | Outpatient (RCR) | payer MEDICARE, OTHER, SELFPAY ==
--- NOTE | 2021-06-09 10:36 | HMH.PTOPWND ---
Rehab Outpt Wound Evaluation Rehab OP Wound Evaluation Start: 06/09/21 10:28 Freq: Status: Active Protocol: Document 06/09/21 10:28 SHAE (Rec: 06/09/21 10:36 [email or web address] [id number]) Electronically Signed By Davon Benites PT 06/09/21 10:28 Subjective/History History History This is the initial OP wound clinic consutl for Vinod Ragland. PT has long standing hx of LE wounds and non- compliance w/ wound care. Pt reports he was doctoring his legs and the wounds were almost healed up . Pt reports he was incarcerated and the [facility] didn't take care of his legs right and now he has developed MRSA in wounds. Subjective Subjective Pt c/o sig edema in LLE Wound Eval Wound Left Lower Lateral Tam Wound Type Stasis Ulcer Is This a Chronic Wound Yes Wound Length (cm) 2 Wound Width (cm) 1 Wound Bed Appearance Dusky Red,Yellow Percentage Granulated (%) 0 Percentage of Slough (%) 100 Percentage of Eschar (Yellow) (%) 100 Surrounding Tissue Appearance [place],Bright Red Edema Type Pitting Edema Degree 2+ Query Text:1+ Trace, Barely Detectable, Rebound 15-30 seconds 2+ Moderate, Slight Indentation, Rebound 10-20 seconds 3+ Deep, Deeper Indentation, Rebound > 30 seconds 4+ Very Deep, Rebound > 60 seconds Edema Appearance Shiny,Tight Surrounding Tissue Temperature Warm Drainage Description Serous Drainage Amount Scant Drainage Odor Slight Odor Primary Dressing Silver Dressing Comment tegederm mesh Wound Secondary Dressing Type Unna Boot Wound Debridement Method Sharps Wound Debridement Amount of Tissue Minimal Removed Wound Debridement Result Patient Unable to Tolerate Dressing Change Date 06/09/21 Dressing Change Patient Tolerance Tolerated Poorly Left Lower Medial Tam Wound Type Stasis Ulcer Is This a Chronic Wound Yes Wound Length (cm) 5 Wound Width (cm) 3 Wound Depth (cm) 0.5 Wound Bed Appearance Dusky Red Percentage Granulated (%) 25 Percentage of Slough (%) 75 Percentage of Eschar (Yellow) (%) 75 Surrounding Tissue Appearance [place],Bright Red Edema Type
== END 2021-06-29 15:05 | disposition home or self-care (01) ==
LOC: PT 15:00
PROVIDERS: PCP Family Medicine; Visit Provider Family Medicine
DX: L03.116 Cellulitis of left lower limb (principal); L97.922 Non-pressure chronic ulcer of unspecified part of left lower leg with fat layer exposed
CPT/HCPCS: 29580; 97161; 97597

== ENCOUNTER 2021-07-15 17:43 | Emergency (ER) | payer MEDICARE, OTHER, SELFPAY ==
[2021-07-15 17:50] VITALS: BP 168/101; PULSE 98; RESP 28; O2SAT 96; BMI 34.0
--- NOTE | 2021-07-15 17:53 | XR_ITS ---
PROCEDURE INFORMATION: Exam: XR Chest Exam date and time: 07/15/2021 5:53 PM Age: 46 years old Clinical indication: Shortness of breath; Additional info: SOB TECHNIQUE: Imaging protocol: XR of the chest. Views: 2 views. COMPARISON: CR XR CHEST PORTABLE 04/30/2021 1:02 PM FINDINGS: Lungs: Ill-defined infiltrate at the right lung base. Pleural spaces: Small volume of right-sided pleural fluid. Heart/Mediastinum: Unremarkable. No cardiomegaly. Bones/joints: Unremarkable. IMPRESSION: 1. Right lung base infiltrate may represent pneumonia. 2. Minor right-sided pleural fluid.
--- NOTE | 2021-07-15 18:10 | HMH.EDUTC ---
[facility] [place] Clinical Impression: Ulcer of left lower extremity with fat layer exposed Hypertension Qualifiers: Hypertension type: primary hypertension Qualified Code(s): I10 - Essential (primary) hypertension Disposition: Left Against Medical Advice Condition on Discharge: Fair Referrals: Carlos Stanton MD [Primary Care Provider] - Time of Disposition: 18:25 Medical Decision Making - Joshua Inquiry Pt receiving controlled substance: No Joshua was queried for this patient: No Vital Signs: 07/15/21 17:50 07/15/21 18:40 07/15/21 19:05 Temperature 98.3 F 98.2 F Temperature Source Oral Oral Pulse Rate 104 H Pulse Rate [Right Brachial] 98 H 95 H Respiratory Rate 28 H 18 18 Blood Pressure 163/94 H Blood Pressure [Right Arm] 168/101 H 163/94 H Blood Pressure Mean [Right Arm] 123 117 Blood Pressure Source Automatic Cuff Blood Pressure Source [Right Arm] Automatic Cuff Automatic Cuff Blood Pressure Position Supine Blood Pressure Position [Right Arm] Sitting Supine 02 Sat by Pulse Oximetry 96 96 Oxygen Delivery Method Room Air Room Air Room Air - Lab Data Lab Results 07/15/21 18:30: SARS-CoV-2 (PCR) Not detected, Influenza A Untype (PCR) Not detected, Influenza Type B (PCR) Not detected Orders (Tests/Meds): ED MEDICATIONS Discontinued Medications Generic Name Dose Route Start Last Admin Trade Name Dewayneq PRN Reason Stop Dose Admin Albuterol/Ipratropium 3 ml 07/15/21 18:32 07/15/21 18:50 Ipratropium/Albuterol 3 Ml Neb IH 07/15/21 18:33 Not Given ONCE ONE Medical Decision Narrative: Audible wheezing heard upon entering the room, patient pale, sweating, States that he has been having vomiting, increased thirst and feeling off and confused and out of sorts due to patient complaints and v/s recommended transfer to the ED for further work up and treatment and patient agreed patient was moved to the ED for further evaluation and treatment [facility] [place] - General Stated complaint: SOB,vomiting Time Seen by Provider: 07/15/21 18:10 Mode of Arrival: Ambulatory Source of Information: Patient Limitations: No Limitations Description of Symptoms (Recalled from Triage Doc. by RN): PATIENT C/O SOA, VOMITING, DIZZINESS, INCREASED THIRST, AND FEELING OUT OF SORTS SINCE YESTERDAY. HEENT Symptoms (Recalled from RN notes): No Resp Symptoms (Recalled from RN notes): Yes Skin Symptoms (Recalled from RN notes): No MS Symptoms (Recalled from RN notes): No Functional Status (Recalled from RN notes): WNL - History of Present Illness Provider Complaint: Patient states that he has been feeling confused, sleeping alot, pale having shortness of breath, wheezing and feeling off. States that he has been sleeping for the last couple days and having hard time staying awake States this evening he was feeling worse and unable to walk without getting very winded and sweaty and pale and felt thirsty so he came in - Related Data Home Medications Medication Instructions Recorded Confirmed Fluticasone/Umeclidin/Vilanter 1 puff IH DAILY 12/30/20 06/24/21 [Trelegy Ellipta 200-62.5-25] lactulose 10 gram/15 mL oral 20 g PO QID ml 04/27/21 06/24/21 solution pantoprazole 40 mg tablet,delayed 40 mg PO DAILY tab 04/27/21 06/24/21 release Lisinopril/Hydrochlorothiazide 1 tab PO DAILY 04/30/21 06/24/21 [Lisinopril-Hctz 20-25 mg Tab*] Rifaximin [Xifaxan 550mg Tablet] 550 mg PO BID 05/01/21 06/24/21 Previous Rx's Medication Instructions Recorded mupirocin 2 % topical ointment 1 applic TOPICAL BID #22 g 05/28/21 ibuprofen 800 mg tablet 800 mg PO Q8H PRN #30 tab 06/24/21 torsemide 20 mg tablet 20 mg PO DAILY #30 tab 06/24/21 Allergies Allergy/AdvReac Type Severity Reaction Status Date / Time codeine Allergy Severe Anaphylaxis Verified 06/24/21 09:18 guaifenesin [From Mucinex] Allergy Severe SWELLS Verified 06/24/21 09:18 ketorolac [From Toradol] Allergy Severe Difficulty Verified 1
--- NOTE | 2021-07-15 18:24 | PC.NURSE ---
PATIENT SENT TO ER PER Val GORDON APRN FOR FURTHER EVALUATION. REPORT GIVEN TO Mary RICARDO RN
[2021-07-15 18:38] LABS: Coronavirus 19, PCR Not Detected (NotDetected); Influenza A, PCR Not Detected (NotDetected); Influenza B, PCR Not Detected (NotDetected)
[2021-07-15 18:40] VITALS: BP 163/94; PULSE 95; RESP 18; TEMP 36.8; O2SAT 96; BMI 39.9
--- NOTE | 2021-07-15 18:45 | HMH.EDWEAK ---
ED Disposition Clinical Impression: Ulcer of left lower extremity with fat layer exposed Hypertension Qualifiers: Hypertension type: primary hypertension Qualified Code(s): I10 - Essential (primary) hypertension Disposition: Left Against Medical Advice Condition on Discharge: Undetermined Referrals: Carlos Stanton MD [Primary Care Provider] - - Critical Care Critical Care Time: No Attestation: On 07/15/21, the high probability of a clinically significant, sudden or life threatening deterioration of the following system(s) required my full and direct attention, intervention and personal management. The time I documented below is in addition to time spent performing reported procedures but includes the following listed in this critical care notation. Medical Decision Making - Medical Records Medical records reviewed: Yes: I reviewed the patient's medical records. - Joshua Inquiry Pt receiving controlled substance: No Vital Signs: 07/15/21 17:50 Pulse Rate [Right Brachial] 98 H Respiratory Rate 28 H Blood Pressure [Right Arm] 168/101 H Blood Pressure Mean [Right Arm] 123 Blood Pressure Source [Right Arm] Automatic Cuff Blood Pressure Position [Right Arm] Sitting 02 Sat by Pulse Oximetry 96 Oxygen Delivery Method Room Air Orders (Tests/Meds): ED MEDICATIONS Discontinued Medications Generic Name Dose Route Start Last Admin Trade Name Freq PRN Reason Stop Dose Admin Albuterol/Ipratropium 3 ml 07/15/21 18:32 Ipratropium/Albuterol 3 Ml Neb 07/15/21 18:33 ONCE ONE ORDERS Category Date Time Status Brain Natriuretic Peptide Stat Lab 07/15/21 18:32 Ordered Complete Blood Count Auto Diff Stat Lab 07/15/21 18:32 Ordered Comprehensive Metabolic Panel Stat Lab 07/15/21 18:32 Ordered PTT [Activated Partial Thrombo Time] Stat Lab 07/15/21 18:32 Ordered Prothrombin Time INR Stat Lab 07/15/21 18:32 Ordered Rapid PCR Covid and Flu A/B Stat Lab 07/15/21 18:30 Received TSH [Thyroid Stimulating Hormone] Stat Lab 07/15/21 18:32 Ordered Trop I [Troponin I] Stat Lab 07/15/21 18:32 Ordered Troponin I Q3H Lab 07/15/21 21:45 Ordered Troponin I Q3H Lab 07/16/21 00:45 Ordered - Reevaluation(s) Time: 18:48 Reevaluation #1: Upon going to reevaluate the patient, he states that he is not going to stay here any longer. The patient has only been in the emergency department for quite short time and we do not have any work-up completed on him as of yet. Patient states that he just cannot stay any longer. I did explain to the patient that leaving prior to completing his work-up could result in catastrophic outcomes including morbidity and mortality. The patient is alert and appropriate. Is full decision-making capability. He wished to leave AGAINST MEDICAL ADVICE. Medical Decision Narrative: Is a 46-year-old male presented to the emergency department with some difficulty breathing generalized weakness. Patient does have some elevated blood pressure and some wheezing on examination. However he has no history of COPD or lung pathology. I do believe he could be having some minor heart failure pleural effusions. Patient symptoms could also be consistent with pneumonia and respiratory viral infection. Diffuse work-up will be initiated. Weakness HPI - General Chief complaint: Weakness Stated complaint: SOB,vomiting Time Seen by Provider: 07/15/21 18:10 Mode of Arrival: Ambulatory Source of Information: Patient Limitations: No Limitations Description of Symptoms (Recalled from ER Triage Doc. by RN): PATIENT C/O SOA, VOMITING, DIZZINESS, INCREASED THIRST, AND FEELING OUT OF SORTS SINCE YESTERDAY. - History of Present Illness HPI Narrative: 46-year-old male presented to the emergency department with some wheezing, generalized weakness and lack of energy. Patient states that he has had the symptoms for last 2 weeks or so. He is being treated currently for the cellulitis and infe
--- NOTE | 2021-07-15 18:48 | PC.NURSE ---
Pt was not wanting to stay. He stated that his ride was going to leave him and did not want to have to walk home. He signed an AMA form and left.
[2021-07-15 19:05] VITALS: BP 163/94; PULSE 104; RESP 18; TEMP 36.8; O2SAT 98
== END 2021-07-15 19:05 | disposition left against medical advice (07) ==
LOC: UTC 18:25 → ER 18:27
PROVIDERS: Emergency Provider Emergency Medicine; PCP Family Medicine
DX: L03.116 Cellulitis of left lower limb (principal); L97.922 Non-pressure chronic ulcer of unspecified part of left lower leg with fat layer exposed; I10 Essential (primary) hypertension; E03.9 Hypothyroidism, unspecified; J44.9 Chronic obstructive pulmonary disease, unspecified; Z20.822 Contact with and (suspected) exposure to COVID-19
CPT/HCPCS: 71046; 99283; C9803; U0003; U0005

== ENCOUNTER 2021-07-26 11:33 | Observation (INO) | payer MEDICARE, OTHER, SELFPAY ==
[2021-07-26 11:33] VITALS: BP 166/101; PULSE 85; RESP 20; TEMP 36.8; O2SAT 99; BMI 39.9
--- NOTE | 2021-07-26 11:41 | ECG_ITS ---
APPROVED REPORT Exam: Resting ECG HR:84 bpm ECG Measurements Heart Rate 84 AXES ND 152 P 24 QRSd 102 QRS 47 QT 416 T 64 QTc 491 Conclusion Normal sinus rhythm Late r wave progression Abnormal ECG Electronically signed by : Wilfredo Muñoz MD 07/26/2021 20:15:38
--- NOTE | 2021-07-26 12:09 | XR_ITS ---
PROCEDURE: XR CHEST PORTABLE CLINICAL HISTORY: SOA COMPARISON: CR XR CHEST PORTABLE from 01/08/2021 CR XR CHEST PORTABLE from 04/30/2021 CR XR CHEST 2V from 07/15/2021 FINDINGS: There is cardiomegaly with pulmonary venous congestion consistent with mild CHF. There is increased density in the right lower lobe suggesting right lower lobe pneumonia. No large effusions. No acute bony abnormalities. IMPRESSION: CHF with right lower lobe pneumonia Dictated by: Jonnathan Meredith MD 07/26/2021 12:51 Jonnathan Meredith MD in [facility] 07/26/2021 12:51
--- NOTE | 2021-07-26 12:09 | XR_ITS ---
PROCEDURE: XR TIBIA FIBULA LT 2V CLINICAL INDICATION: chronic wound over left tibia COMPARISON: CR XR TIBIA FIBULA RT 2V from 03/05/2020 CR XR TIBIA FIBULA LT 2V from 03/05/2020 CR XR TIBIA FIBULA LT 2V from 10/16/2020 CR XR TIBIA FIBULA LT 2V from 01/07/2021 FINDINGS: No fracture or dislocation. No lytic or blastic change. There is normal mineralization. The joint spaces are well-preserved. No significant degenerative/arthritic changes. No erosive changes evident. Other findings:There are edematous changes within the soft tissues. No obvious soft tissue gas. IMPRESSION: Soft tissue swelling otherwise negative Dictated by: Jonnathan Meredith MD 07/26/2021 12:52 Jonnathan Meredith MD in [facility] 07/26/2021 12:52
--- NOTE | 2021-07-26 12:13 | HMH.EDGENADL ---
ED Disposition Clinical Impression: Pneumonia Qualifiers: Pneumonia type: due to unspecified organism Laterality: right Lung location: lower lobe of lung Qualified Code(s): J18.9 - Pneumonia, unspecified organism CHF exacerbation Qualifiers: Heart failure type: unspecified Qualified Code(s): I50.9 - Heart failure, unspecified Cellulitis Qualifiers: Site of cellulitis: extremity Site of cellulitis of extremity: lower extremity Laterality: left Qualified Code(s): L03.116 - Cellulitis of left lower limb Disposition: Admitted As Inpatient Condition on Discharge: Good - Critical Care Critical Care Time: No Attestation: On , the high probability of a clinically significant, sudden or life threatening deterioration of the following system(s) required my full and direct attention, intervention and personal management. The time I documented below is in addition to time spent performing reported procedures but includes the following listed in this critical care notation. Medical Decision Making - Medical Records Medical records reviewed: Yes: I reviewed the patient's medical records. - Joshua Inquiry Pt receiving controlled substance: No Vital Signs: 07/26/21 11:33 Temperature 98.3 F Temperature Source Oral Pulse Rate [Right Radial] 85 Respiratory Rate 20 Blood Pressure [Right Arm] 166/101 H Blood Pressure Mean [Right Arm] 122 Blood Pressure Source [Right Arm] Automatic Cuff Blood Pressure Position [Right Arm] Sitting 02 Sat by Pulse Oximetry 99 Oxygen Delivery Method Room Air - Lab Data Lab Results 07/26/21 11:45: Urine Color Straw, Urine Appearance Clear, Urine pH 7.0, Ur Specific [place] 1.015, Urine Protein Negative, Urine Glucose (UA) Negative, Urine Ketones Negative, Urine Blood Negative, Urine Nitrate Negative, Urine Bilirubin Negative, Urine Urobilinogen 0.2, Ur Leukocyte Esterase Negative, Urine RBC None, Urine WBC None, Ur Squamous Epith Cells None, Urine Bacteria None 07/26/21 12:05: Troponin I 0.03 07/26/21 12:05: WBC 5.5, RBC 3.87 L, Hgb 11.2 L, Hct 36.0 L, MCV 93.0, MCH 29.0, MCHC 31.2 L, RDW 15.5, Plt Count 113 L, MPV 7.9, Neut % (Auto) 77.8, Lymph % (Auto) 14.3, [place] % (Auto) 5.3, Eos % (Auto) 2.2, Baso % (Auto) 0.4, Neut # (Auto) 4.3, Lymph # (Auto) 0.8, [place] # (Auto) 0.3, Eos # (Auto) 0.1, Baso # (Auto) 0.0 07/26/21 12:05: Sodium 139, Potassium 3.5, Chloride 103, Carbon Dioxide 31 H, Anion Gap 8.5, BUN 10, Creatinine 0.60 L, Estimated Creat Clear 261, Estimated GFR 144, Est GFR ( Amer) 174, Glucose 88, Calcium 8.5, Total Bilirubin 1.6 H, AST 63 H, ALT 34, Alkaline Phosphatase 196 H, NT-Pro-B Natriuret Pep 891 H, Total Protein 7.6 D, Albumin 3.3 L, Globulin 4.3 H, Albumin/Globulin Ratio 0.8 L 07/26/21 12:05: Ammonia 31 H Result diagrams: 07/26/21 12:05 07/26/21 12:05 Orders (Tests/Meds): ED MEDICATIONS Generic Name Dose Route Start Last Admin Trade Name Freq PRN Reason Stop Dose Admin Vancomycin HCl 2,000 mg/ 250 mls @ 125 mls/hr 07/26/21 15:30 Sodium Chloride IV 07/26/21 17:29 ONCE ONE Piperacillin Sod/Tazobactam 50 mls @ 100 mls/hr 07/26/21 15:30 Sod 3.375 gm/ Sodium Chloride IV 08/09/21 15:29 Q8H CJ Discontinued Medications Generic Name Dose Route Start Last Admin Trade Name Freq PRN Reason Stop Dose Admin Albuterol/Ipratropium 3 ml 07/26/21 12:12 07/26/21 12:20 Ipratropium/Albuterol 3 Ml Neb IH 07/26/21 12:13 3 ml ONCE ONE Administration Furosemide 80 mg 07/26/21 15:26 Furosemide 40mg/4ml Vial IV 07/26/21 15:27 ONCE ONE Miscellaneous 1 each 07/26/21 15:15 Vancomycin Consult Request * 08/25/21 15:14 CONSULT PHARMACY CJ ORDERS Category Date Time Status Troponin I Q3H Lab 07/26/21 15:15 Ordered Troponin I Q3H Lab 07/26/21 18:15 Ordered - ECG Data Tracing #1 EKG normal sinus rhythm with a rate of 84 bpm, QRS duration 102 ms, QTC 491 ms, normal axis, no ST segment elevation, no T wave inver
[2021-07-26 12:35] LABS: Microscopic, Urine URINE MICROSCOPIC (MICROSCOPIC)
[2021-07-26 12:40] LABS: Appearance,Urine CLEAR (Clear); Bilirubin,Urine Negative (Negative); Blood, Urine Negative (Negative); Color,Urine STRAW (Yellow); Glucose,Urine (UA) Negative (Negative); Ketones,Urine Negative (Negative); Leukocyte Esterase,Urine Negative (Negative); Nitrate,Urine Negative (Negative); Protein,Urine Negative (Negative); Specific Gravity, Urine 1.015 (1.005-1.030); Urobilinogen,Urine 0.2 EU/dl (0.2)
[2021-07-26 12:46] LABS: Basophils % 0.4 % (0.1-2.0); Eosinophils # 0.1 K/mm3 (0.0-0.4); Eosinophils % 2.2 % (0.1-12.0); Hemoglobin 11.2 g/dL (14.1-18.0); Lymphocytes # 0.8 K/mm3 (0.7-4.5); Lymphocytes % 14.3 % (10-50); Mean Corpuscular HGB Conc 31.2 g/dL (31.8-35.4); Mean Platelet Volume 7.9 fl (7.4-10.4); Monocytes # 0.3 K/mm3 (0.1-1.0); Monocytes % 5.3 % (1.7-9.3); Neutrophils # 4.3 K/mm3 (1.8-7.8); Neutrophils % 77.8 % (37.0-80.0); Platelet Count 113 K/mm3 (142-424); Red Blood Count 3.87 M/mm3 (4.60-6.20); Red Cell Distribution Width 15.5 % (11.5-17.5); White Blood Count 5.5 K/mm3 (4.8-10.8)
[2021-07-26 12:50] LABS: Alanine Aminotransferase 34 U/L (12-78); Albumin Level 3.3 g/dl (3.5-5.0); Albumin/Globulin Ratio 0.8 (1.1-1.8); Alkaline Phosphatase 196 U/L (38-126); Anion Gap 8.5 mEq/L (5-15); Aspartate Amino Transferase 63 U/L (17-59); Bilirubin,Total 1.6 mg/dl (0.2-1.3); Blood Urea Nitrogen 10 mg/dl (9-20); Calcium 8.5 mg/dl (8.4-10.2); Carbon Dioxide 31 mmol/L (22.0-30.0); Chloride 103 mmol/L (98-107); Creatinine Clearance Estimated 261 mL/min (50-200); Estimated Glomerular Filt Rate 144 ml/min (>60); GFR (African American) 174 ML/MIN (>60); Globulin 4.3 g/dL (1.3-3.2); Glucose 88 mg/dl (74-100); Potassium 3.5 mmoL/L (3.5-5.1); Sodium 139 mmol/L (136-145); Total Protein,Serum 7.6 g/dl (6.3-8.2)
[2021-07-26 12:54] LABS: Ammonia 31 umol/L (9-30)
[2021-07-26 13:22] LABS: NT Pro Brain Natriuretic Pep. 891 pg/mL (0-125)
[2021-07-26 13:25] LABS: Troponin I 0.03 ng/ml (0.00-0.034)
--- NOTE | 2021-07-26 15:03 | PC.NURSE ---
on the phone with .
--- NOTE | 2021-07-26 15:07 | PC.NURSE ---
talking with cardiology
[2021-07-26 15:27] VITALS: BMI 42.3
--- NOTE | 2021-07-26 16:00 | PC.NURSE ---
report called to floor
[2021-07-26 16:09] VITALS: BP 146/82; PULSE 87; RESP 19; O2SAT 98
[2021-07-26 16:16] VITALS: BP 146/82; PULSE 78; RESP 18; O2SAT 96
[2021-07-26 16:42] LABS: Troponin I 0.03 ng/ml (0.00-0.034)
[2021-07-26 16:43] VITALS: BP 142/74; PULSE 74; RESP 16; TEMP 36.8; O2SAT 98
[2021-07-26 16:55] LABS: Coronavirus 19, PCR Not Detected (NotDetected); Influenza A, PCR Not Detected (NotDetected); Influenza B, PCR Not Detected (NotDetected)
--- NOTE | 2021-07-26 18:35 | HMH.HP ---
*Admission Date: 07/26/21 *Chief complaint: dyspnea, orthopnea,pneumonia *History of present illness: Patient is a 46-year-old white male, known to me from the practice, history of orthopnea , awakening suddenly at night to get into an upright position. Denies ischemic chest pain. CXR in ER showed RLL pneumonia and volume overload. Admitted for further w/u and treatment. Refractory cellulitis left anterior calf. Recurrent infection and suboptimal wound care at home. [facility] History Medical History: Reports:: Chronic Obstructive Pulmonary Disease (COPD), Hypertension Denies:: Cancer, Diabetes Mellitus Type 1, Diabetes Mellitus Type 2, MRSA, Seizures *Have you ever received a pneumonia vaccine?: No *Have you received a flu vaccine this season?: No Other Medical History: Reports: Anemia, Arthritis, Hypothyroidism, Liver Disease. Denies: Blood Transfusion Reaction Laterality Cases: Bilateral: Tonsillectomy, Other Other Surgeries: Yes: Ureter Stent, Other Amputation: No Fractures: Yes - *Social History Last grade of school completed: High school graduate Smoking Status: Former smoker Tobacco Type: smokeless tobacco # Packs/Day (cigarettes): 1 Alcohol Intake: never Substance Use Type: methamphetamine *Occupational Status:: disabled Housing: house Household Members: none *Travel in the last 8 weeks: None Family Hx:: No significant family history Review of Systems - Constitutional Reports fatigue, Reports lack of energy - Eyes Denies change in vision - ENT Denies abnormal hearing - *Cardiovascular Reports leg swelling, Reports leg sores, Reports shortness of breath when lying down, Reports foot swelling, Denies chest pain, Denies radiating jaw, neck or arm pain - *Respiratory Reports chest congestion, Reports cough, Reports shortness of breath, Reports shortness of breath with activity, Denies coughing up blood - *Gastrointestinal Denies abdominal pain - *Genitourinary Denies difficulty urinating - *Musculoskeletal Reports joint pain, Reports limited joint movement - Integumentary/Breasts Denies new lesions - *Neurologic Denies abnormal walking - Psychiatric Reports anxiety - Endocrine Denies cold intolerance - Hematologic/Lymphatic Denies easy bleeding - Allergic/Immunologic Denies hives Meds Home Medications Medication Instructions Recorded Confirmed Type Fluticasone/Umeclidin/Vilanter 1 puff IH DAILY 12/30/20 07/26/21 History [Trelegy Ellipta 200-62.5-25] lactulose 10 gram/15 mL oral 20 g PO QID ml 04/27/21 07/26/21 History solution pantoprazole 40 mg tablet,delayed 40 mg PO DAILY tab 04/27/21 07/26/21 History release Lisinopril/Hydrochlorothiazide 1 tab PO DAILY 04/30/21 07/26/21 History [Lisinopril-Hctz 20-25 mg Tab*] Rifaximin [Xifaxan 550mg Tablet] 550 mg PO BID 05/01/21 07/26/21 History Mupirocin [Centany] 1 applic TOPICAL BID 07/26/21 07/26/21 History Torsemide [Demadex] 20 mg PO DAILY 07/26/21 07/26/21 History Allergies Allergy/AdvReac Type Severity Reaction Status Date / Time codeine Allergy Severe Anaphylaxis Verified 06/24/21 09:18 guaifenesin [From Mucinex] Allergy Severe SWELLS Verified 06/24/21 09:18 ketorolac [From Toradol] Allergy Severe Difficulty Verified 06/24/21 09:18 Swallowing Exam Vital signs and Labs for Last 24 Hours: Temp Pulse Resp BP Pulse Ox 98.2 F 74 16 142/74 H 96 07/26/21 16:43 07/26/21 16:43 07/26/21 16:43 07/26/21 16:43 07/26/21 16:16 Laboratory Results - last 24 hr 07/26/21 11:45: Urine Color Straw, Urine Appearance Clear, Urine pH 7.0, Ur Specific [place] 1.015, Urine Protein Negative, Urine Glucose (UA) Negative, Urine Ketones Negative, Urine Blood Negative, Urine Nitrate Negative, Urine Bilirubin Negative, Urine Urobilinogen 0.2, Ur Leukocyte Esterase Negative, Urine RBC None, Urine WBC None, Ur Squamous Epith Cells None, Urine Bacteria None 07/26/21 12:05: Troponin I 0.03 07/26/21 12:05: WBC 5.5, RBC 3.87
[2021-07-26 18:52] LABS: Troponin I 0.03 ng/ml (0.00-0.034)
[2021-07-26 20:00] VITALS: BP 128/74; PULSE 66; RESP 17; RESP 19; TEMP 36.6; O2SAT 97
[2021-07-27] VITALS (17 sets, daily range): BP systolic 98–164; BP diastolic 49–93; PULSE 59–145; RESP 16–18; TEMP 36.6–37.1; O2SAT 93–99; BMI 39.4; BMI 39.2
--- NOTE | 2021-07-27 | IR_ITS ---
APPROVED REPORT Patient Location: Inpatient Notching Machine Operator: CARRIE Sweeney RT (R) PROCEDURES Left heart catheterization Left ventriculogram Selective coronary angiogram INDICATION New onset pulmonary edema/congestive heart failure Informed consent was obtained prior to the procedure. COMPLICATIONS NONE Estimated Blood Loss: LESSS THAN 10 ML TECHNIQUE One percent lidocaine used to anesthetize the right anterior aspect of the wrist. The right radial artery was accessed via the Seldinger technique. A 6 [place] sheath was placed in the right radial artery. 2.5 mg of verapamil, 800 mcg of nitroglycerin, 1mg Lidocaine and 5000 U Heparin were given through the arterial sheath. The [place] 1 catheter was also used to perform left heart catheterization, left ventriculogram and selective coronary angiogram. At the end of the procedure the sheath was removed good hemostasis was achieved using Traclet band, patient was transferred to the postop holding area in stable condition. ANGIOGRAPHIC RESULTS The left main artery Normal The left anterior descending artery Tortuous normal The circumflex artery Large nondominant tortuous normal The right coronary artery Dominant normal The AVILA ventriculogram reveals Dilated ventricle with preserved ejection fraction estimated at 60% The left ventricular end-diastolic pressure Elevated at 25 mmHg IMPRESSION Normal coronaries Dilated ventricle with elevated LVEDP PLAN 1. Treatment of diastolic dysfunction which likely stems from hypertensive heart disease based on LV dilatation and elevated LVEDP 2. Risk factor modification Electronically signed by : Darrel Downey MD 07/27/2021 13:05:42
--- NOTE | 2021-07-27 07:42 | HMH.PHAVTE ---
[facility] Pharmacy VTE Monitoring - Patient Demographics Admission date: 07/27/21 Report Date: 07/27/21 Time: 07:42 Allergies/Adverse Reactions: Patient Allergies codeine Allergy (Severe, Verified 06/24/21 09:18) Anaphylaxis guaifenesin [From Mucinex] Allergy (Severe, Verified 06/24/21 09:18) SWELLS ketorolac [From Toradol] Allergy (Severe, Verified 06/24/21 09:18) Difficulty Swallowing Height: 1.75 m Weight: 120.882 kg Patient Problems: Current Active Problems Pneumonia (Acute) CHF exacerbation (Acute) Venous stasis (Chronic) Left leg pain (Chronic) Obesity (Chronic) Cellulitis (Acute) History of hypertension (Chronic) Cellulitis of left leg (Chronic) COPD (chronic obstructive pulmonary disease) (Chronic) Chronic pain (Chronic) - VTE Risk Labs: VTE Related Lab Results Hgb 11.2 g/dL (14.1-18.0) L 07/26/21 12:05 Hct 36.0 % (42.0-52.0) L 07/26/21 12:05 Plt Count 113 K/mm3 (142-424) L 07/26/21 12:05 BUN 10 mg/dl (9-20) 07/26/21 12:05 Creatinine 0.60 mg/dl (0.66-1.25) L 07/26/21 12:05 Estimated Creat Clear 261 mL/min (50-200) 07/26/21 12:05 Was VTE Risk Assessment Performed: Yes VTE Risk Level: Low Risk Clinical Trial Participant: No - Prophylaxis VTE Prophylaxis Ordered?: Yes Types of VTE Prophylaxis: TEDS Knee High
--- NOTE | 2021-07-27 08:00 | HMH.PHAINT ---
Home medications verified with [facility]
--- NOTE | 2021-07-27 09:58 | HMH.ACPN2 ---
Internal Medicine - PN: Subj *Date: 07/27/21 *Time: 10:45 Interval history: 46-year-old male patient sitting up in bed resting quietly, he reports he is feeling better today than yesterday denies any chest pain or shortness of breath during the night. Oxygenation today 96% on room air. Continues on Vanco and Zosyn for pneumonia and left lower extremity cellulitis. Cardiology to see. Exam Vital signs and Labs for Last 24 Hours: Temp Pulse Resp BP Pulse Ox 97.9 F 66 17 164/82 H 96 07/27/21 04:00 07/27/21 04:00 07/27/21 04:00 07/27/21 04:00 07/27/21 04:00 Laboratory Results - last 24 hr 07/26/21 11:45: Urine Color Straw, Urine Appearance Clear, Urine pH 7.0, Ur Specific [place] 1.015, Urine Protein Negative, Urine Glucose (UA) Negative, Urine Ketones Negative, Urine Blood Negative, Urine Nitrate Negative, Urine Bilirubin Negative, Urine Urobilinogen 0.2, Ur Leukocyte Esterase Negative, Urine RBC None, Urine WBC None, Ur Squamous Epith Cells None, Urine Bacteria None 07/26/21 12:05: Troponin I 0.03 07/26/21 12:05: WBC 5.5, RBC 3.87 L, Hgb 11.2 L, Hct 36.0 L, MCV 93.0, MCH 29.0, MCHC 31.2 L, RDW 15.5, Plt Count 113 L, MPV 7.9, Neut % (Auto) 77.8, Lymph % (Auto) 14.3, [place] % (Auto) 5.3, Eos % (Auto) 2.2, Baso % (Auto) 0.4, Neut # (Auto) 4.3, Lymph # (Auto) 0.8, [place] # (Auto) 0.3, Eos # (Auto) 0.1, Baso # (Auto) 0.0 07/26/21 12:05: Sodium 139, Potassium 3.5, Chloride 103, Carbon Dioxide 31 H, Anion Gap 8.5, BUN 10, Creatinine 0.60 L, Estimated Creat Clear 261, Estimated GFR 144, Est GFR ( Amer) 174, Glucose 88, Calcium 8.5, Total Bilirubin 1.6 H, AST 63 H, ALT 34, Alkaline Phosphatase 196 H, NT-Pro-B Natriuret Pep 891 H, Total Protein 7.6 D, Albumin 3.3 L, Globulin 4.3 H, Albumin/Globulin Ratio 0.8 L 07/26/21 12:05: Ammonia 31 H 07/26/21 15:40: Troponin I 0.03 07/26/21 16:50: SARS-CoV-2 (PCR) Not detected, Influenza A Untype (PCR) Not detected, Influenza Type B (PCR) Not detected 07/26/21 18:18: Troponin I 0.03 I & O for Last 24 hours: Intake & Output 07/24/21 07/25/21 07/26/21 07/27/21 23:59 23:59 23:59 23:59 Intake Total 300 / 300 Balance 300 / 300 Weight 286 lb 3 oz 266 lb 8 oz - Constitutional no acute distress, obese - *Routine HEENT Exam Head: Present: normocephalic Eye: Present: EOMI ENT: Present: mucous membranes moist - *Routine Neck Exam Present: trachea midline. Absent: tracheal deviation - *Routine Respiratory Exam Present: crackles. Absent: accessory muscle use - *Routine Cardiovascular Exam Present: RRR - *Routine Abdominal Exam Present: soft, normoactive bowel sounds. Absent: tenderness, firm - *Routine Extremities Exam Present: edema. Absent: cyanosis, clubbing, tenderness - *Routine Skin Exam Present: intact, erythema, dry, wounds. Absent: cyanosis Comments: Left lower extremity with 2 open wounds Left lower extremity red, warm, and tender - *Routine Neurological Exam Present: alert, oriented X3. Absent: motor deficit - Routine Psychiatric Exam Present: normal affect, normal thought process Assessment and Plan (1) CHF exacerbation Status: Acute Qualifiers: Heart failure type: unspecified Qualified Code(s): I50.9 - Heart failure, unspecified Category: Medical Code(s): I50.9 - Heart failure, unspecified (2) Cellulitis Status: Acute Qualifiers: Site of cellulitis: extremity Site of cellulitis of extremity: lower extremity Laterality: left Qualified Code(s): L03.116 - Cellulitis of left lower limb Category: Medical Code(s): L03.90 - Cellulitis, unspecified (3) Pneumonia Status: Acute Qualifiers: Pneumonia type: due to unspecified organism Laterality: right Lung location: lower lobe of lung Qualified Code(s): J18.9 - Pneumonia, unspecified organism Category: Medical Code(s): J18.9 - Pneumonia, unspecified organism (4) Cellulitis of left leg Status: Chronic Category: Medical Code(s)
--- NOTE | 2021-07-27 10:12 | HMH.PTWOUND ---
Rehab Inpt Wound Evaluation Rehab IP Wound Evaluation Start: 07/27/21 08:46 Freq: ONCE Status: Active Protocol: Document 07/27/21 10:08 SHAE (Rec: 07/27/21 10:12 [id number]) Rehab PT Wound Assessment Patient Status Premedicated Prior to Dressing Change No Subjective Subjective Pt reports he had issues maintaining OP wound clinic apointments. Pt rpeorts she has been bandaging my wounds at home Wound Left Lateral Tam Wound Type Stasis Ulcer Wound Length (cm) 2 Wound Width (cm) 1 Wound Bed Appearance Beefy Red,Dusky Red,Yellow Percentage Granulated (%) 75 Percentage of Slough (%) 25 Percentage of Eschar (Yellow) (%) 25 Wound Margins Description Well Defined Surrounding Tissue Appearance Bright Red Wound Drainage Description None Primary Dressing Medicated Gauze Pad Comment betadyne gauze Wound Secondary Dressing Type Unna Boot Left Medial Tam Wound Type Stasis Ulcer Is This a Chronic Wound Yes Wound Length (cm) 4.5 Wound Width (cm) 2 Wound Bed Appearance Beefy Red,Dusky Red,Yellow, Slough Percentage Granulated (%) 50 Percentage of Slough (%) 50 Percentage of Eschar (Brown) (%) 50 Wound Margins Description Well Defined Surrounding Tissue Appearance [place] Surrounding Tissue Temperature Warm Dressing Status Open to Air Primary Dressing Medicated Gauze Pad Comment betadyne gauze Wound Secondary Dressing Type Unna Boot Plan/Recommendation Comment Dressing change daily wet/dry betadyne gauzw w/ unna boot secondary. Nsg to change if unna boot becomes soiled - Wound care will follow patient while in [facility]. Pt is consistently non-compliant w/ OP wound care and home health nursing appointments. Eval Complexity Eval Charge Codes 82372 - Moderate Complexity G-codes PT Current Status Other PT/OT Status PT Current Status Modifier CN-At least 100% impaired, limited or restricted PT Goal Status Other PT/OT Status PT Goal Status Modifer CN-At least 100% impaired, limited or restricted PHYS
--- NOTE | 2021-07-27 11:17 | HMH.CNCARD ---
History of Present Illness Consult date: 07/27/21 Requesting physician: Louie Resendez Consult reason: shortness of breath Chief complaint: SOA History of present illness: This is a 46-year-old white gentleman who presented to the emergency department with complaints of shortness of breath. The patient states that he has been short of breath since Monday. He states that the shortness of breath woke him up suddenly at night consistent with orthopnea. He states that he is also been having bilateral lower extremity edema off and on for the last 2 weeks. He states that he has a wound on his left lower extremity with cellulitis. He has been caring for this at home for quite some time he states. The patient states that his shortness of breath is worsened with exertion. It improves with rest but does not completely resolve. He states that this can be severe. He denies any chest pain or pressure. He denies any fever, chills, nausea, vomiting, diarrhea. He does have orthopnea associated with his shortness of breath. While he was in the emergency department he had a chest x-ray that showed CHF with right lower lobe pneumonia. The patient has been started on Lasix and antibiotics. The patient denies any tobacco use to me. However his history states he uses smokeless tobacco. He denies any alcohol or drug use. The patient did have a urine here at the hospital back in May which was positive for methamphetamines and cocaine. However he adamantly denies ever using any illicit drugs. [facility] History I have reviewed the patient's past medical history: Yes Medical History: Reports:: Congestive Heart Failure, Chronic Obstructive Pulmonary Disease (COPD), Hypertension Denies:: Cancer, Diabetes Mellitus Type 1, Diabetes Mellitus Type 2, MRSA, Seizures *Have you ever received a pneumonia vaccine?: No *Have you received a flu vaccine this season?: No Other Medical History: Reports: Anemia, Arthritis, Hypothyroidism, Liver Disease. Denies: Blood Transfusion Reaction Laterality Cases: Bilateral: Tonsillectomy, Other Other Surgeries: Yes: Ureter Stent, Other Amputation: No Fractures: Yes - *Social History Last grade of school completed: High school graduate Smoking Status: Current every day smoker Tobacco Type: smokeless tobacco # Packs/Day (cigarettes): 1 Alcohol Intake: never Substance Use Type: methamphetamine *Occupational Status:: unemployed Housing: house Household Members: none *Travel in the last 8 weeks: None Family Hx:: No significant family history Meds Home Medications Medication Instructions Recorded Confirmed Type Fluticasone/Umeclidin/Vilanter 1 puff IH DAILY 12/30/20 07/26/21 History [Trelegy Ellipta 200-62.5-25] lactulose 10 gram/15 mL oral 20 g PO QID ml 04/27/21 07/26/21 History solution pantoprazole 40 mg tablet,delayed 40 mg PO DAILY tab 04/27/21 07/26/21 History release Lisinopril/Hydrochlorothiazide 1 tab PO DAILY 04/30/21 07/26/21 History [Lisinopril-Hctz 20-25 mg Tab*] Rifaximin [Xifaxan 550mg Tablet] 550 mg PO BID 05/01/21 07/26/21 History Torsemide [Demadex] 20 mg PO DAILY 07/26/21 07/26/21 History Doxycycline Hyclate [Doxycycline 100 mg PO BID 07/27/21 07/27/21 History Hyclate 100mg Tablet] Gabapentin 800 mg PO TID 07/27/21 07/27/21 History Allergies Allergy/AdvReac Type Severity Reaction Status Date / Time codeine Allergy Severe Anaphylaxis Verified 06/24/21 09:18 guaifenesin [From Mucinex] Allergy Severe SWELLS Verified 06/24/21 09:18 ketorolac [From Toradol] Allergy Severe Difficulty Verified 06/24/21 09:18 Swallowing Exam Vital signs and Labs for Last 24 Hours: Temp Pulse Resp BP Pulse Ox 97.9 F 66 17 164/82 H 96 07/27/21 04:00 07/27/21 04:00 07/27/21 04:00 07/27/21 04:00 07/27/21 04:00 Laboratory Results - last 24 hr 07/26/21 11:45: Urine Color Straw, Urine Appearance Clear, Urine pH 7.0, Ur Specific [place] 1.015, Urine Protein Negative, Urine Glucose
--- NOTE | 2021-07-27 13:58 | PC.NURSE ---
Specimen cup for sputum sample given to pt. Pt verbalizes understanding and will call out when he produces sputum
--- NOTE | 2021-07-27 18:51 | CA_ITS ---
APPROVED REPORT EXAM: Comprehensive 2D, Doppler, and color-flow Echocardiogram Team Leader/Research Psychologist: Jaclyn Vaughn CRT Ht: 5 ft 9 in Wt: 286lbs BSA: 2.40 BP: 130/84 mmHg Indications: Congestive Heart Failure, COPD, Shortness of Breath, Obesity, Peripheral Edema, Hyperlipidemia, Hypertension/HDD, cirrhosis 2D Dimensions LVOT 2.03 cm (M/F) 1.5-2.5 LA Volume 85.50 mL LA Volume Index 35.60 mL/m2 (M/F) 16-34 M-Mode Dimensions RVDd 3.17 cm (0.9-2.6) LA Diam 5.54 cm (1.9-4.0) LVDd 5.80 cm (3.5-5.7) Ao Diam 3.70 cm (2.0-3.7) LVDs 4.02 cm (3.5-5.7) IVSd 2.46 cm (0.6-1.1) PWd 0.71 cm (0.6-1.1) EF (Teich) 57.50% FS 30.70% EDV (Teich) 166.60 mL TAPSE 2.82 (<1.7) ESV (Teich) 70.80 mL LV Diastology E Decel Time 313.00 (160-240 msec) E/A Ratio 1.41 MED E' 10.00 (< 7 cm/sec) MED A' 6.20 cm/s E'/MED E' Ratio 10.49 (>14) LAT E' 10.40 (<10 cm/sec) LAT A' 7.40 cm/s E/LAT E' Ratio 10.09 (>14) Aortic Valve AO Peak GR. 9.70 mmHg Mitral Valve MV A Velocity 75.00 (40-130 cm/s) E/A Ratio 1.41 MV Decel. Time 313.00 (160-240 ms) Pulmonary Valve PV Peak Velocity 110.00 (50-150 cm/s) Tricuspid Valve TR P. Velocity 217.00 cm/s RAP Estimate 10.00 mmHg RVSP 28.80 mmHg Left Ventricle Left atrium is mildly enlarged, left ventricle is normal size, mild concentric left ventricular hypertrophy, visually estimated ejection fraction 55% with no regional wall motion abnormality, diastolic parameters are inconclusive. Right Ventricle Right atrium and right ventricle are mildly enlarged with normal contractility, Aortic Valve Aortic valve is minimally thickened and fibrosed, there is no aortic stenosis or aortic insufficiency, there appears to be flow across the intraventricular septum, raising the concerns for presence of restrictive VSD or sinus of Valsalva aneurysm with left to right shunt. Transesophageal echocardiogram is recommended. Mitral Valve Mitral valve is grossly normal, there is trace mitral regurgitation. Tricuspid Valve Tricuspid valve grossly normal, there is trace tricuspid regurgitation, tricuspid regurgitation jet velocity is inadequate for calculation of the right ventricular systolic pressure. Pulmonic Valve Pulmonic valve is poorly visualized. Great Vessels Aortic root is normal size. Inferior vena cava normal size with normal inspiratory collapse. Pericardium No significant pericardial effusion noted. Conclusion 1. Normal left ventricular size, preserved left ventricular systolic function, visually estimated ejection fraction 55% with no regional wall motion abnormality, diastolic parameters are inconclusive. 2. Flow across the interatrial septum is detected as described above a transesophageal echocardiogram is recommended. 3. No significant pericardial effusion noted. Electronically signed by : Iraj Ortiz MD 07/27/2021 19:25:52
--- NOTE | 2021-07-27 22:30 | PC.NURSE ---
Report given to Lynette Stevens RN at this time.
[2021-07-28] VITALS: BP 161/91; PULSE 70; PULSE 92; RESP 18; TEMP 37.1; O2SAT 92
[2021-07-28 04:00] VITALS: BP 129/63; PULSE 80; PULSE 81; RESP 18; TEMP 37; O2SAT 97
[2021-07-28 05:38] VITALS: BMI 40.8
--- NOTE | 2021-07-28 07:15 | PC.NURSE ---
pt rested most of the night, dressing to right radial CDI s/p heart cath, VSS, tele nsr with pvc, axo, medicated x1 for leg pain
[2021-07-28 08:00] VITALS: BP 123/79; PULSE 78; PULSE 94; RESP 22; TEMP 36.7; O2SAT 97
--- NOTE | 2021-07-28 08:04 | HMH.PNCARD ---
Subjective Date: 07/28/21 Time: 09:00 Principal diagnosis: SOA Interval history: This is a 46-year-old white gentleman who presented to the emergency department with complaints of shortness of breath. He was also having associated lower extremity edema. The patient underwent left cardiac catheterization yesterday and was found to have normal coronary arteries with a dilated ventricle and preserved ejection fraction at 60%. His LVEDP was also elevated at 25 mmHg. The patient needs aggressive treatment of his diastolic dysfunction. He also has an abnormal echocardiogram where there appears to be flow across the intraventricular septum raising concern for the presence of a restrictive VSD or aneurysm with a left to right shunt. DIANE has been recommended. This morning he states that his shortness of breath has improved. He states his edema has resolved but he still has cellulitis in his left lower extremity. He denies any chest pain or pressure. He denies any fever, chills, nausea, vomiting, diarrhea, PND or orthopnea. Exam Vital signs and Labs for Last 24 Hours: Temp Pulse Resp BP Pulse Ox 98.6 F 81 18 129/63 97 07/28/21 04:00 07/28/21 04:00 07/28/21 04:00 07/28/21 04:00 07/28/21 04:00 I & O for Last 24 hours: Intake & Output 07/25/21 07/26/21 07/27/21 07/28/21 23:59 23:59 23:59 23:59 Intake Total 1020 / 1020 Output Total 500 / 500 Balance 520 / 520 Weight 286 lb 3 oz 264 lb 8.875 oz 276 lb 3.2 oz Narrative: Echo shows: Aortic valve is minimally thickened and fibrosed, there is no aortic stenosis or aortic insufficiency, there appears to be flow across the intraventricular septum, raising the concerns for presence of restrictive VSD or sinus of Valsalva aneurysm with left to right shunt. Transesophageal echocardiogram is recommended. Conclusion 1. Normal left ventricular size, preserved left ventricular systolic function, visually estimated ejection fraction 55% with no regional wall motion abnormality, diastolic parameters are inconclusive. 2. Flow across the interatrial septum is detected as described above a transesophageal echocardiogram is recommended. 3. No significant pericardial effusion noted. Telemetry strip shows sinus rhythm with a rate of 74. - Constitutional no acute distress, morbidly obese - *Routine HEENT Exam Head: Present: normocephalic, atraumatic Eye: Present: EOMI, PERRL ENT: Present: mucous membranes moist - *Routine Neck Exam Present: supple, full ROM, normal carotid upstroke. Absent: JVD, carotid bruit, lymphadenopathy - *Routine Respiratory Exam Present: CTA bilaterally - *Routine Cardiovascular Exam Present: RRR, Normal S1, Normal S2 - *Routine Abdominal Exam Present: soft, normoactive bowel sounds. Absent: tenderness - *Routine Extremities Exam Present: full ROM, pulses intact, normal capillary refill. Absent: cyanosis, clubbing, edema - *Routine Skin Exam Present: warm. Absent: rash Comments: cellulitis to LLE - *Routine Neurological Exam Present: alert, oriented X3, CN II-XII intact. Absent: sensory deficit, motor deficit Progress Note: A&P (1) Abnormal echocardiogram Status: Acute (2) Atypical angina Status: Acute (3) Shortness of breath Status: Acute (4) CHF exacerbation Status: Acute (5) Pneumonia Status: Acute (6) Cellulitis of left leg Status: Chronic (7) Left leg pain Status: Chronic (8) Obesity Status: Chronic (9) COPD (chronic obstructive pulmonary disease) Status: Chronic (10) Chronic pain Status: Chronic (11) History of hypertension Status: Chronic (12) Venous stasis Status: Chronic (13) VSD (ventricular septal defect) Status: Suspected Assessment and Plan for All Diagnoses:: Plan: 1. This is a 46-year-old gentleman who presented to the emergency department complaints of shortness of breath and orthopnea. He was found to have CHF and right
--- NOTE | 2021-07-28 09:52 | HMH.DCSUM ---
General - General Admission date:: 07/26/21 Discharge date: 07/28/21 HPI HPI: Patient is a 46-year-old white male, known to me from the practice, history of orthopnea , awakening suddenly at night to get into an upright position. Denies ischemic chest pain. CXR in ER showed RLL pneumonia and volume overload. Admitted for further w/u and treatment. Refractory cellulitis left anterior calf. Recurrent infection and suboptimal wound care at home. Hospital Course Hospital Course: Laboratory Tests 07/26/21 07/26/21 07/26/21 11:45 12:05 12:05 WBC 5.5 RBC 3.87 L Hgb 11.2 L Hct 36.0 L MCV 93.0 MCH 29.0 MCHC 31.2 L RDW 15.5 Plt Count 113 L MPV 7.9 Neut % (Auto) 77.8 Lymph % (Auto) 14.3 [place] % (Auto) 5.3 Eos % (Auto) 2.2 Baso % (Auto) 0.4 Neut # (Auto) 4.3 Lymph # (Auto) 0.8 [place] # (Auto) 0.3 Eos # (Auto) 0.1 Baso # (Auto) 0.0 Sodium Potassium Chloride Carbon Dioxide Anion Gap BUN Creatinine Estimated Creat Clear Estimated GFR Est GFR ( Amer) Glucose Calcium Total Bilirubin AST ALT Alkaline Phosphatase Ammonia Troponin I 0.03 NT-Pro-B Natriuret Pep Total Protein Albumin Globulin Albumin/Globulin Ratio Urine Color Straw Urine Appearance Clear Urine pH 7.0 Ur Specific Philipp 1.015 Urine Protein Negative Urine Glucose (UA) Negative Urine Ketones Negative Urine Blood Negative Urine Nitrate Negative Urine Bilirubin Negative Urine Urobilinogen 0.2 Ur Leukocyte Esterase Negative Urine RBC None Urine WBC None Ur Squamous Epith Cells None Urine Bacteria None SARS-CoV-2 (PCR) Influenza A Untype (PCR) Influenza Type B (PCR) 07/26/21 07/26/21 07/26/21 12:05 12:05 15:40 WBC RBC Hgb Hct MCV MCH MCHC RDW Plt Count MPV Neut % (Auto) Lymph % (Auto) [place] % (Auto) Eos % (Auto) Baso % (Auto) Neut # (Auto) Lymph # (Auto) [place] # (Auto) Eos # (Auto) Baso # (Auto) Sodium 139 Potassium 3.5 Chloride 103 Carbon Dioxide 31 H Anion Gap 8.5 BUN 10 Creatinine 0.60 L Estimated Creat Clear 261 Estimated GFR 144 Est GFR ( Amer) 174 Glucose 88 Calcium 8.5 Total Bilirubin 1.6 H AST 63 H ALT 34 Alkaline Phosphatase 196 H Ammonia 31 H Troponin I 0.03 NT-Pro-B Natriuret Pep 891 H Total Protein 7.6 D Albumin 3.3 L Globulin 4.3 H Albumin/Globulin Ratio 0.8 L Urine Color Urine Appearance Urine pH Ur Specific Philipp Urine Protein Urine Glucose (UA) Urine Ketones Urine Blood Urine Nitrate Urine Bilirubin Urine Urobilinogen Ur Leukocyte Esterase Urine RBC Urine WBC Ur Squamous Epith Cells Urine Bacteria SARS-CoV-2 (PCR) Influenza A Untype (PCR) Influenza Type B (PCR) 07/26/21 07/26/21 16:50 18:18 WBC RBC Hgb Hct MCV MCH MCHC RDW Plt Count MPV Neut % (Auto) Lymph % (Auto) [place] % (Auto) Eos % (Auto) Baso % (Auto) Neut # (Auto) Lymph # (Auto) [place] # (Auto) Eos # (Auto) Baso # (Auto) Sodium Potassium Chloride Carbon Dioxide Anion Gap BUN Creatinine Estimated Creat Clear Estimated GFR Est GFR ( Amer) Glucose Calcium Total Bilirubin AST ALT Alkaline Phosphatase Ammonia Troponin I 0.03 NT-Pro-B Natriuret Pep Total Protein Albumin Globulin Albumin/Globulin Ratio Urine Color Urine Appearance Urine pH Ur Specific Philipp Urine Protein Urine Glucose (UA) Urine Ketones Urine Blood Urine Nitrate Urine Bilirubin Urine Urobilinogen Ur Leukocyte Esterase Urine RBC Urine WBC Ur Squamous Epith Cells Urine Bacteria SARS-CoV-2 (PCR) Not detected Influenza A
== END 2021-07-28 12:20 | disposition home or self-care (01) ==
LOC: ER 12:12 → 2ND 15:20
PROVIDERS: Internal Medicine; Admitting Provider Family Medicine; Emergency Provider Emergency Medicine; PCP Family Medicine; Visit Provider Family Medicine
DX: J18.9 Pneumonia, unspecified organism (principal); I50.9 Heart failure, unspecified; Z20.822 Contact with and (suspected) exposure to COVID-19; Z79.899 Other long term (current) drug therapy; J44.9 Chronic obstructive pulmonary disease, unspecified; L03.116 Cellulitis of left lower limb; E66.01 Morbid (severe) obesity due to excess calories; Z68.41 Body mass index [BMI] 40.0-44.9, adult; G89.28 Other chronic postprocedural pain; I11.0 Hypertensive heart disease with heart failure
CPT/HCPCS: G0378; 36415; 71045; 73590; 80053; 81001; 82140; 83880; 84484; 85025; 87040; 87081; 93005; 93306; 93458; 96365; 96375; 99152; 99284; C1725; C1760; C1769; C9803; J1644; J2543; J3370; Q9967; U0003; U0005

== ENCOUNTER 2021-08-26 11:29 | Emergency (ER) | payer MEDICARE, OTHER, SELFPAY ==
[2021-08-26 11:30] VITALS: BP 170/102; PULSE 107; RESP 20; TEMP 36.6; O2SAT 97; BMI 41.3
--- NOTE | 2021-08-26 11:39 | XR_ITS ---
FINAL REPORT CLINICAL HISTORY: chronic deep wound COMPARISON: July 26, 2021 FINDINGS: LEFT TIBIA FIBULA 2 views were obtained. There is no acute fracture or dislocation. The joint spaces are intact. There is a small soft tissue defect on the anterior lower leg. IMPRESSION: Small soft tissue defect anterior lower leg with no acute bony abnormality. Reviewed, Interpreted and Dictated by Claudio Kuhn III, MD Transcribed by Balbina Sosa Authenticated by Claudio Kuhn III, MD on 08/26/2021 12:44:[address] [facility]
[2021-08-26 11:40] VITALS: BP 170/102; PULSE 101; RESP 18; O2SAT 100
[2021-08-26 11:41] VITALS: BMI 41.3
--- NOTE | 2021-08-26 11:42 | HMH.EDGENADL ---
ED Disposition Clinical Impression: Leg wound, left Qualifiers: Encounter type: subsequent encounter Qualified Code(s): S81.802D - Unspecified open wound, left lower leg, subsequent encounter Disposition: Home, Self-Care Condition on Discharge: Good Instructions: Skin Wound Prescriptions: Mupirocin [Bactroban 2% Ointment 22gm tube] 1 applicatio TP TID #22 gm Transmission Status: Pending to Clinic [facility] Doxycycline Hyclate [Doxycycline Hyclate 100mg Tablet] 100 mg PO BID 10 Days #20 tab Transmission Status: Pending to Clinic Pharm[facility] Oxycodone HCl/Acetaminophen [Percocet 7.5-325 mg Tablet] 1 each PO Q8 PRN 3 Days #10 tab PRN Reason: Moderate Pain Prescription Printed Referrals: Carlos Stanton MD [Primary Care Provider] - - Critical Care Critical Care Time: No Attestation: On 08/26/21, the high probability of a clinically significant, sudden or life threatening deterioration of the following system(s) required my full and direct attention, intervention and personal management. The time I documented below is in addition to time spent performing reported procedures but includes the following listed in this critical care notation. Medical Decision Making - Joshua Inquiry Pt receiving controlled substance: No Vital Signs: 08/26/21 11:30 08/26/21 11:40 08/26/21 12:12 Temperature 98 F Temperature Source Oral Pulse Rate 101 H 97 H Pulse Rate [Radial] 107 H Respiratory Rate 20 18 18 Blood Pressure 170/102 H 164/85 H Blood Pressure [Right Arm] 170/102 H Blood Pressure Mean 141 114 Blood Pressure Mean [Right Arm] 124 Blood Pressure Position [Right Arm] Sitting 02 Sat by Pulse Oximetry 97 100 99 Oxygen Delivery Method Room Air - Lab Data Lab Results 08/26/21 11:10: SARS-CoV-2 (PCR) Not detected, Influenza A Untype (PCR) Not detected, Influenza Type B (PCR) Not detected 08/26/21 12:00: WBC 3.8 L, RBC 3.61 L, Hgb 10.7 L, Hct 33.9 L, MCV 93.8, MCH 29.5, MCHC 31.5 L, RDW 17.7 H, Plt Count 77 L, MPV 10.1, Neut % (Auto) 65.7, Lymph % (Auto) 22.1, [place] % (Auto) 7.1, Eos % (Auto) 4.0, Baso % (Auto) 1.0, Neut # (Auto) 2.5, Lymph # (Auto) 0.8, [place] # (Auto) 0.3, Eos # (Auto) 0.2, Baso # (Auto) 0.0 08/26/21 12:00: Sodium 139, Potassium 3.5, Chloride 105, Carbon Dioxide 29, Anion Gap 8.5, BUN 11, Creatinine 0.60 L, Estimated Creat Clear 151, Estimated GFR 144, Est GFR ( Amer) 174, Glucose 107 H, Calcium 8.0 L, Total Bilirubin 1.9 H, AST 58, ALT 30, Alkaline Phosphatase 206 H, Total Protein 7.4, Albumin 3.2 L, Globulin 4.2 H, Albumin/Globulin Ratio 0.8 L 08/26/21 12:00: Lactate 0.9 Result diagrams: 08/26/21 12:00 08/26/21 12:00 Orders (Tests/Meds): ED MEDICATIONS Discontinued Medications Generic Name Dose Route Start Last Admin Trade Name Freq PRN Reason Stop Dose Admin Oxycodone/Acetaminophen 1 each 08/26/21 11:40 08/26/21 12:13 Oxycodone 7.5mg W/Apap 325mg Tablet PO 08/26/21 11:41 Not Given ONCE ONE Oxycodone/Acetaminophen 2 each 08/26/21 12:14 08/26/21 12:15 Oxycodone 5mg W/Apap 325mg Tablet PO 08/26/21 12:15 2 each ONCE ONE Administration ORDERS Category Date Time Status Blood Culture Stat Micro 08/26/21 12:00 Received Medical Decision Narrative: chronic wound and labs, new finding includes increased pain and drainage, will rx hydro and clinda, f/u wound care dr Arias, pt agreed General Adult HPI - General Stated complaint: left leg infection Time Seen by Provider: 08/26/21 11:42 Source of Information: Patient Limitations: No Limitations - History of Present Illness HPI narrative: chronic deep left leg wound into subq >1 yr, today with worsening pain and drainage Severity: moderate Quality: constant Relieving factors: none Exacerbating factors: movement Associated symptoms: denies other symptoms - Related Data Home Medications Medication Instructions Recorded Confirmed Fluticasone/Umeclidin/Vilanter 1 puff
[2021-08-26 12:12] VITALS: BP 164/85; PULSE 97; RESP 18; O2SAT 99
[2021-08-26 12:13] LABS: Eosinophils # 0.2 K/mm3 (0.0-0.4); Hematocrit 33.9 % (42.0-52.0); Hemoglobin 10.7 g/dL (14.1-18.0); Lymphocytes # 0.8 K/mm3 (0.7-4.5); Lymphocytes % 22.1 % (10-50); Mean Corpuscular HGB Conc 31.5 g/dL (31.8-35.4); Mean Corpuscular Hemoglobin 29.5 pg (27.0-31.2); Mean Corpuscular Volume 93.8 fl (80-94); Mean Platelet Volume 10.1 fl (7.4-10.4); Monocytes # 0.3 K/mm3 (0.1-1.0); Monocytes % 7.1 % (1.7-9.3); Neutrophils # 2.5 K/mm3 (1.8-7.8); Neutrophils % 65.7 % (37.0-80.0); Platelet Count 77 K/mm3 (142-424); Red Blood Count 3.61 M/mm3 (4.60-6.20); Red Cell Distribution Width 17.7 % (11.5-17.5); White Blood Count 3.8 K/mm3 (4.8-10.8)
[2021-08-26 12:18] LABS: Chloride 105 mmol/L (98-107); Potassium 3.5 mmoL/L (3.5-5.1); Sodium 139 mmol/L (136-145)
[2021-08-26 12:19] LABS: Coronavirus 19, PCR Not Detected (NotDetected); Influenza A, PCR Not Detected (NotDetected); Influenza B, PCR Not Detected (NotDetected)
[2021-08-26 12:20] LABS: Alanine Aminotransferase 30 U/L (12-78); Aspartate Amino Transferase 58 U/L (17-59); Blood Urea Nitrogen 11 mg/dl (9-20); Creatinine Clearance Estimated 151 mL/min (50-200); Estimated Glomerular Filt Rate 144 ml/min (>60); GFR (African American) 174 ML/MIN (>60)
[2021-08-26 12:21] LABS: Albumin Level 3.2 g/dl (3.5-5.0); Albumin/Globulin Ratio 0.8 (1.1-1.8); Alkaline Phosphatase 206 U/L (38-126); Anion Gap 8.5 mEq/L (5-15); Bilirubin,Total 1.9 mg/dl (0.2-1.3); Carbon Dioxide 29 mmol/L (22.0-30.0); Globulin 4.2 g/dL (1.3-3.2); Glucose 107 mg/dl (74-100); Total Protein,Serum 7.4 g/dl (6.3-8.2)
[2021-08-26 12:50] LABS: Lactic Acid 0.9 mmol/L (0.7-2.1)
[2021-08-26 19:13] VITALS: BP 138/78; PULSE 78; RESP 18; TEMP 36.6; O2SAT 94
== END 2021-08-26 19:14 | disposition home or self-care (01) ==
PROVIDERS: Emergency Provider Emergency Medicine; PCP Family Medicine
DX: L03.116 Cellulitis of left lower limb (principal); J44.9 Chronic obstructive pulmonary disease, unspecified; I10 Essential (primary) hypertension; E03.9 Hypothyroidism, unspecified; Z87.891 Personal history of nicotine dependence; Z79.899 Other long term (current) drug therapy; Z20.822 Contact with and (suspected) exposure to COVID-19
CPT/HCPCS: 73590; 80053; 83605; 85025; 87040; 96374; 99282; C9803; U0003; U0005

== ENCOUNTER 2021-11-16 16:52 | Observation (INO) | payer MEDICARE, SELFPAY ==
--- NOTE | 2021-11-16 17:26 | PC.NURSE ---
Pt arrived to the floor at this time
--- NOTE | 2021-11-16 17:29 | PC.NURSE ---
Pt to floor at this time.
[2021-11-16 17:42] VITALS: BP 136/83; PULSE 82; RESP 20; TEMP 36.8; O2SAT 98; BMI 45.8
[2021-11-16 17:46] LABS: Coronavirus 19, PCR Not Detected (NotDetected); Influenza A, PCR Not Detected (NotDetected); Influenza B, PCR Not Detected (NotDetected)
--- NOTE | 2021-11-16 18:53 | PC.NURSE ---
Dr. Artiss here at this time rounding.
--- NOTE | 2021-11-16 19:39 | HMH.HP ---
*Admission Date: 11/16/21 *Chief complaint: cellulitis left lower extremity *History of present illness: Patient is a 46-year-old white male who is well-known to our service. He presented earlier today with worsening cellulitis of his distal left anterior calf. Cellulitis of the left lower extremity has been a recurrent and refractory issue. About a month ago he was admitted to [facility] for colitis in the same area. On that occasion he had marked swelling redness and warmth which improved transiently after IV antibiotics. The leg is gotten worse over the last week or so. Patient has been referred to wound care on several occasions, but has not followed through. His care of the wound at home is less than optimal. On exam in the office the left distal calf was found to be red, warm to the touch, with a deep ulceration. Given the extent of the redness and warmth elected to admit him for IV antibiotics. [facility] History Medical History: Reports:: Congestive Heart Failure, Chronic Obstructive Pulmonary Disease (COPD), Hypertension, Seizures Denies:: Cancer, Diabetes Mellitus Type 1, Diabetes Mellitus Type 2, MRSA *Have you ever received a pneumonia vaccine?: No *Have you received a flu vaccine this season?: No Other Medical History: Reports: Anemia, Arthritis, Hypothyroidism, Liver Disease. Denies: Blood Transfusion Reaction Laterality Cases: Bilateral: Tonsillectomy, Other Other Surgeries: Yes: Ureter Stent, Other Amputation: No Fractures: Yes - *Social History Smoking Status: Former smoker Tobacco Type: smokeless tobacco # Packs/Day (cigarettes): 1 Alcohol Intake: never Substance Use Type: methamphetamine *Occupational Status:: disabled Housing: house Household Members: none *Travel in the last 8 weeks: None Family Hx:: No significant family history Review of Systems - Constitutional Reports weakness, Denies anorexia - Eyes Denies change in vision - ENT Denies bleeding gums - *Cardiovascular Reports shortness of breath with activity, Denies chest pain - *Respiratory Denies shortness of breath - *Gastrointestinal Denies abdominal pain - *Genitourinary Denies difficulty urinating - *Musculoskeletal Reports muscle weakness - Integumentary/Breasts Reports lesions, Denies yellowing of the skin, Denies new lesions - *Neurologic Denies abnormal speech - Psychiatric Reports anxiety, Denies behavioral changes - Endocrine Denies cold intolerance - Hematologic/Lymphatic Denies easy bleeding, Denies easy bruising - Allergic/Immunologic Denies hives Meds Home Medications Medication Instructions Recorded Confirmed Type Rifaximin [Xifaxan 550mg Tablet] 550 mg PO BID 05/01/21 11/16/21 History albuterol sulfate 90 mcg/actuation 2 puff INHALATION QID PRN #8.5 g 11/02/21 11/16/21 Rx aerosol inhaler fluticasone fur. 200 mcg-umeclid 1 inh INHALATION DAILY #60 each 11/02/21 11/16/21 Rx 62.5 mcg-vilant 25 mcg inhalat.powder Doxycycline Hyclate [Doxycycline 100 mg PO BID 11/16/21 11/16/21 History Hyclate 100mg Tablet] Gabapentin 300 mg PO TID 11/16/21 11/16/21 History Metoprolol Succinate [Toprol XL 25 mg PO DAILY 11/16/21 11/16/21 History 25mg tablet] Mupirocin [Centany] 1 applic TOPICAL TID 11/16/21 11/16/21 History Nystatin 5 ml PO QID 11/16/21 11/16/21 History Potassium Chloride 20 meq PO DAILY 11/16/21 11/16/21 History Torsemide [Demadex] See Rx Instructions .ROUTE .COMPLEX 11/16/21 11/16/21 History lisinopriL [Zestril 20mg tab] 40 mg PO DAILY 11/16/21 11/16/21 History Allergies Allergy/AdvReac Type Severity Reaction Status Date / Time codeine Allergy Severe Anaphylaxis Verified 11/02/21 14:51 guaifenesin [From Mucinex] Allergy Severe SWELLS Verified 11/02/21 14:51 ketorolac [From Toradol] Allergy Severe Difficulty Verified 11/02/21 14:51 Swallowing Exam Vital signs and Labs for Last 24 Hours: Temp Pulse Resp BP Pulse Ox 98.3 F 82 20 136/83 98
[2021-11-16 20:00] VITALS: RESP 22; O2SAT 99
[2021-11-16 20:17] VITALS: BP 135/84; PULSE 84; RESP 16; TEMP 36.8; O2SAT 99
[2021-11-16 20:17] LABS: Basophils % 0.3 % (0.1-2.0); Eosinophils # 0.1 K/mm3 (0.0-0.4); Eosinophils % 3.6 % (0.1-12.0); Hematocrit 32.5 % (42.0-52.0); Hemoglobin 10.5 g/dL (14.1-18.0); Lymphocytes # 0.8 K/mm3 (0.7-4.5); Lymphocytes % 28.9 % (10-50); Mean Corpuscular HGB Conc 32.3 g/dL (31.8-35.4); Mean Corpuscular Volume 95.7 fl (80-94); Mean Platelet Volume 10.7 fl (7.4-10.4); Monocytes # 0.2 K/mm3 (0.1-1.0); Monocytes % 7.6 % (1.7-9.3); Neutrophils # 1.7 K/mm3 (1.8-7.8); Neutrophils % 59.6 % (37.0-80.0); Platelet Count 104 K/mm3 (142-424); Red Cell Distribution Width 17.7 % (11.5-17.5); White Blood Count 2.9 K/mm3 (4.8-10.8)
[2021-11-16 20:24] LABS: Chloride 109 mmol/L (98-107); Potassium 3.6 mmoL/L (3.5-5.1); Sodium 138 mmol/L (136-145)
[2021-11-16 20:26] LABS: Alanine Aminotransferase 41 U/L (12-78); Alkaline Phosphatase 223 U/L (38-126); Anion Gap 5.6 mEq/L (5-15); Aspartate Amino Transferase 70 U/L (17-59); Bilirubin,Total 1.5 mg/dl (0.2-1.3); Blood Urea Nitrogen 13 mg/dl (9-20); Carbon Dioxide 27 mmol/L (22.0-30.0); Creatinine Clearance Estimated 129 mL/min (50-200); Estimated Glomerular Filt Rate 120 ml/min (>60); GFR (African American) 146 ML/MIN (>60)
[2021-11-16 20:27] LABS: Albumin Level 2.8 g/dl (3.5-5.0); Albumin/Globulin Ratio 0.8 (1.1-1.8); Ammonia 102 umol/L (9-30); Calcium 7.6 mg/dl (8.4-10.2); Globulin 3.7 g/dL (1.3-3.2); Glucose 86 mg/dl (74-100); Total Protein,Serum 6.5 g/dl (6.3-8.2)
[2021-11-17 05:07] VITALS: BP 152/104; PULSE 91; RESP 16; TEMP 36.7; O2SAT 95
--- NOTE | 2021-11-17 07:18 | HMH.PHAVTE ---
[facility] Pharmacy VTE Monitoring - Patient Demographics Admission date: 11/16/21 Report Date: 11/17/21 Time: 07:18 Allergies/Adverse Reactions: Patient Allergies codeine Allergy (Severe, Verified 11/02/21 14:51) Anaphylaxis guaifenesin [From Mucinex] Allergy (Severe, Verified 11/02/21 14:51) SWELLS ketorolac [From Toradol] Allergy (Severe, Verified 11/02/21 14:51) Difficulty Swallowing Height: 1.75 m Weight: 140.84 kg Patient Problems: Current Active Problems Leg wound, left (Acute) Noncompliance (Chronic) Lower extremity cellulitis (Acute) Ulcer of left lower extremity with fat layer exposed (Acute) Non compliance with medical treatment (Acute) Tobacco abuse (Chronic) Left leg pain (Chronic) Cellulitis (Acute) Obese (Chronic) Cellulitis of left leg (Chronic) Venous stasis ulcers (Acute) Morbid obesity with body mass index (BMI) of 40.0 to 49.9 (Chronic) - VTE Risk Labs: VTE Related Lab Results Hgb 10.5 g/dL (14.1-18.0) L 11/16/21 20:10 Hct 32.5 % (42.0-52.0) L 11/16/21 20:10 Plt Count 104 K/mm3 (142-424) L 11/16/21 20:10 BUN 13 mg/dl (9-20) 11/16/21 20:10 Creatinine 0.70 mg/dl (0.66-1.25) 11/16/21 20:10 Estimated Creat Clear 129 mL/min (50-200) 11/16/21 20:10 - Prophylaxis VTE Prophylaxis Ordered?: Yes Types of VTE Prophylaxis: TEDS Knee High Location of Applied Device: Right Leg
--- NOTE | 2021-11-17 07:25 | HMH.PHAINT ---
Home medication list was verified using [employer] claim history and med-rec from most recent visit with one of our providers.
[2021-11-17 08:00] VITALS: BP 144/75; PULSE 73; RESP 22; TEMP 36.4; O2SAT 95
--- NOTE | 2021-11-17 08:22 | HMH.PHACONS ---
- Pharmacy Consult Date: 11/17/21 Time: 08:22 Referring provider: DR. LEBLANC Reason for Consult:: VANCOMYCIN DOSING Allergies and ADEs:: Allergies Allergy/AdvReac Type Severity Reaction Status Date / Time codeine Allergy Severe Anaphylaxis Verified 11/02/21 14:51 guaifenesin [From Mucinex] Allergy Severe SWELLS Verified 11/02/21 14:51 ketorolac [From Toradol] Allergy Severe Difficulty Verified 11/02/21 14:51 Swallowing Home Medications:: Home Medications Medication Instructions Recorded Confirmed Type Rifaximin [Xifaxan 550mg Tablet] 550 mg PO BID 05/01/21 11/16/21 History albuterol sulfate 90 mcg/actuation 2 puff INHALATION QID PRN #8.5 g 11/02/21 11/16/21 Rx aerosol inhaler Gabapentin 300 mg PO TID 11/16/21 11/16/21 History Metoprolol Succinate [Toprol XL 25 mg PO DAILY 11/16/21 11/16/21 History 25mg tablet] Mupirocin [Centany] 1 applic TOPICAL TID 11/16/21 11/16/21 History Potassium Chloride 20 meq PO DAILY 11/16/21 11/16/21 History Torsemide [Demadex] See Rx Instructions PO .COMPLEX 11/16/21 11/17/21 History Fluticasone/Umeclidin/Vilanter 1 inh INHALATION DAILY 11/17/21 11/17/21 History [Trelegy Ellipta 200-62.5-25] Lisinopril/Hydrochlorothiazide 1 tab PO DAILY 11/17/21 11/17/21 History [Lisinopril-Hctz 10-12.5 mg Tab] Height: 1.75 m Weight: 140.84 kg Laboratory Results:: Laboratory Results - last 24 hr 11/16/21 17:41: SARS-CoV-2 (PCR) Not detected, Influenza A Untype (PCR) Not detected, Influenza Type B (PCR) Not detected 11/16/21 20:10: WBC 2.9 L, RBC 3.40 L, Hgb 10.5 L, Hct 32.5 L, MCV 95.7 H, MCH 31.0, MCHC 32.3, RDW 17.7 H, Plt Count 104 L, MPV 10.7 H, Neut % (Auto) 59.6, Lymph % (Auto) 28.9, [place] % (Auto) 7.6, Eos % (Auto) 3.6, Baso % (Auto) 0.3, Neut # (Auto) 1.7 L, Lymph # (Auto) 0.8, [place] # (Auto) 0.2, Eos # (Auto) 0.1, Baso # (Auto) 0.0 11/16/21 20:10: Sodium 138, Potassium 3.6, Chloride 109 H, Carbon Dioxide 27, Anion Gap 5.6, BUN 13, Creatinine 0.70, Estimated Creat Clear 129, Estimated GFR 120, Est GFR ( Amer) 146, Glucose 86, Calcium 7.6 L, Total Bilirubin 1.5 H, AST 70 H, ALT 41, Alkaline Phosphatase 223 H, Total Protein 6.5, Albumin 2.8 L, Globulin 3.7 H, Albumin/Globulin Ratio 0.8 L 11/16/21 20:10: Ammonia 102 H Medical History: Reports:: Congestive Heart Failure, Chronic Obstructive Pulmonary Disease (COPD), Hypertension, Seizures Denies:: Cancer, Diabetes Mellitus Type 1, Diabetes Mellitus Type 2, MRSA Assessment and Plan (1) Cellulitis Status: Acute Qualifiers: Site of cellulitis: extremity Site of cellulitis of extremity: lower extremity Laterality: right Qualified Code(s): L03.115 - Cellulitis of right lower limb Category: Medical Code(s): L03.90 - Cellulitis, unspecified (2) Leg wound, left Status: Acute Qualifiers: Encounter type: subsequent encounter Qualified Code(s): S81.802D - Unspecified open wound, left lower leg, subsequent encounter Category: Medical Code(s): S81.802A - Unspecified open wound, left lower leg, initial encounter (3) Lower extremity cellulitis Status: Acute Qualifiers: Laterality: left Qualified Code(s): L03.116 - Cellulitis of left lower limb Category: Medical Code(s): L03.119 - Cellulitis of unspecified part of limb (4) Non compliance with medical treatment Status: Acute Category: Medical Code(s): Z91.19 - Patient's noncompliance with other medical treatment and regimen (5) Ulcer of left lower extremity with fat layer exposed Status: Acute Category: Medical Code(s): L97.922 - Non-pressure chronic ulcer of unspecified part of left lower leg with fat layer exposed (6) Venous stasis ulcers Status: Acute Qualifiers: Venous stasis ulcer site: unspecified site Varicose vein presence: without varicose veins Non-pressure ulcer stage: limited to breakdown of skin Qualified Code(s): I87.2 - Venous insufficiency (chronic) (peripheral); L97.901 - Non-pressure chron
--- NOTE | 2021-11-17 09:40 | HMH.ACPN2 ---
Internal Medicine - PN: Subj *Date: 11/17/21 *Time: 19:17 Interval history: 46-year-old male patient resting in bed quietly with eyes closed, awakens to verbal stimuli. He reports his pain is been well controlled with as needed pain meds. Dressing to left lower extremity with yellowish drainage to wounds noted to left lower extremity. Wound care consulted. Exam Vital signs and Labs for Last 24 Hours: Temp Pulse Resp BP Pulse Ox 97.5 F L 73 22 144/75 H 95 11/17/21 08:00 11/17/21 08:00 11/17/21 08:00 11/17/21 08:00 11/17/21 08:00 Laboratory Results - last 24 hr 11/16/21 17:41: SARS-CoV-2 (PCR) Not detected, Influenza A Untype (PCR) Not detected, Influenza Type B (PCR) Not detected 11/16/21 20:10: WBC 2.9 L, RBC 3.40 L, Hgb 10.5 L, Hct 32.5 L, MCV 95.7 H, MCH 31.0, MCHC 32.3, RDW 17.7 H, Plt Count 104 L, MPV 10.7 H, Neut % (Auto) 59.6, Lymph % (Auto) 28.9, [place] % (Auto) 7.6, Eos % (Auto) 3.6, Baso % (Auto) 0.3, Neut # (Auto) 1.7 L, Lymph # (Auto) 0.8, [place] # (Auto) 0.2, Eos # (Auto) 0.1, Baso # (Auto) 0.0 11/16/21 20:10: Sodium 138, Potassium 3.6, Chloride 109 H, Carbon Dioxide 27, Anion Gap 5.6, BUN 13, Creatinine 0.70, Estimated Creat Clear 129, Estimated GFR 120, Est GFR ( Amer) 146, Glucose 86, Calcium 7.6 L, Total Bilirubin 1.5 H, AST 70 H, ALT 41, Alkaline Phosphatase 223 H, Total Protein 6.5, Albumin 2.8 L, Globulin 3.7 H, Albumin/Globulin Ratio 0.8 L 11/16/21 20:10: Ammonia 102 H I & O for Last 24 hours: Intake & Output 11/14/21 11/15/21 11/16/2111/17/22 23:59 23:59 23:59 23:59 Intake Total 480 / 480 Output Total 0 / 0 Balance 480 / 480 Weight 310 lb 8 oz Microbiology Reports for the Last 24 Hours: Microbiology 11/16/21 18:20 Leg,Left - Wound Gram Stain - Final 11/16/21 18:20 Leg,Left - Wound Wound Culture - Preliminary - Constitutional no acute distress, obese - *Routine HEENT Exam Head: Present: normocephalic Eye: Present: EOMI ENT: Present: mucous membranes moist - *Routine Neck Exam Present: trachea midline. Absent: tracheal deviation - *Routine Respiratory Exam Present: CTA bilaterally. Absent: accessory muscle use - *Routine Cardiovascular Exam Present: RRR - *Routine Abdominal Exam Present: soft, normoactive bowel sounds. Absent: tenderness, firm - *Routine Extremities Exam Present: cyanosis, clubbing, edema, pulses intact - *Routine Skin Exam Present: cyanosis, erythema, wounds. Absent: intact Comments: Wounds x2 to left lower extremity - *Routine Neurological Exam Present: alert, oriented X3. Absent: motor deficit - Routine Psychiatric Exam Present: normal affect, normal thought process. Absent: visual hallucinations Assessment and Plan (1) Cellulitis Status: Acute Qualifiers: Site of cellulitis: extremity Site of cellulitis of extremity: lower extremity Laterality: right Qualified Code(s): L03.115 - Cellulitis of right lower limb Category: Medical Code(s): L03.90 - Cellulitis, unspecified (2) Leg wound, left Status: Acute Qualifiers: Encounter type: subsequent encounter Qualified Code(s): S81.802D - Unspecified open wound, left lower leg, subsequent encounter Category: Medical Code(s): S81.802A - Unspecified open wound, left lower leg, initial encounter (3) Lower extremity cellulitis Status: Acute Qualifiers: Laterality: left Qualified Code(s): L03.116 - Cellulitis of left lower limb Category: Medical Code(s): L03.119 - Cellulitis of unspecified part of limb (4) Non compliance with medical treatment Status: Acute Category: Medical Code(s): Z91.19 - Patient's noncompliance with other medical treatment and regimen (5) Ulcer of left lower extremity with fat layer exposed Status: Acute Category: Medical Code(s): L97.922 - Non-pressure chronic ulcer of unspecified part of left lower leg with fat layer exposed (6) Venous stasis ulcers Status: Acu
--- NOTE | 2021-11-17 09:43 | CT_ITS ---
FINAL REPORT CLINICAL HISTORY: Cellulitis FINDINGS: Thin section axial CT images of the abdomen, pelvis and lower extremities were obtained with contrast. Multiplanar reformatted images were also obtained and reviewed. PELVIS: There is no distal abdominal aortic aneurysm or dissection. There is no significant stenosis of the right common iliac artery or external right iliac artery. There is no significant stenosis of the left common iliac artery or external left iliac artery. The internal iliac arteries are patent. RIGHT LOWER EXTREMITY: There is no significant stenosis of the right common femoral or superficial femoral arteries. The right deep femoral artery is patent. The right popliteal artery is patent. There is three-vessel runoff to the distal lower leg. LEFT LOWER EXTREMITY: There is no significant stenosis of the left common femoral or superficial femoral arteries. The left deep femoral artery is patent. The left popliteal artery is patent. There is three-vessel runoff to the distal lower leg. There is skin thickening of the left lower leg with subcutaneous stranding that could represent edema or cellulitis. There is no fluid collection to suggest abscess. Note is made of bilateral knee joint effusions. OTHER FINDINGS: No evidence of significant stenosis. IMPRESSION: No significant vascular disease. Skin thickening and subcutaneous stranding of the left lower leg could represent edema or cellulitis. No fluid collection to suggest abscess. Reviewed, Interpreted and Dictated by Claudio Kuhn III, MD Transcribed by Anmol Orozco Authenticated by Claudio Kuhn III, MD on 11/17/2021 12:55:58 PM [facility]
--- NOTE | 2021-11-17 09:43 | HMH.PTWOUND ---
Rehab Inpt Wound Evaluation Rehab IP Wound Evaluation Start: 11/17/21 09:30 Freq: Status: Active Protocol: Document 11/17/21 09:33 SHAE (Rec: 11/17/21 09:43 SHAE [id number]) Rehab PT Wound Assessment Patient Status Premedicated Prior to Dressing Change No Subjective Subjective Pt is well known to wound care team and is consistently inconsistent and non-compliant w/ wound care and visits. Pt states wounds hurt but he was going to come to wound care but he was told the wrong time Wound Left Lateral Tam Wound Type Stasis Ulcer Is This a Chronic Wound Yes Wound Length (cm) 2 Wound Width (cm) 1 Wound Bed Appearance Yellow Percentage Granulated (%) 0 Percentage of Eschar (Yellow) (%) 100 Wound Margins Description Well Defined Surrounding Tissue Appearance Bright Red Wound Drainage Description Serous Drainage Amount Large Dressing Status Open to Air Primary Dressing Medicated Gauze Pad Comment betadyne gauze Wound Secondary Dressing Type Gauze Roll/Wrap Comment kerlix/coban Dressing Change Patient Tolerance Tolerated Poorly Left Medial Tam Wound Type Stasis Ulcer Is This a Chronic Wound Yes Wound Length (cm) 5 Wound Width (cm) 3 Wound Depth (cm) 1 Wound Bed Appearance Yellow Percentage Granulated (%) 0 Percentage of Eschar (Yellow) (%) 100 Wound Margins Description Well Defined Surrounding Tissue Appearance Bright Red Wound Drainage Description Serous Drainage Amount Large Dressing Status Open to Air Primary Dressing Medicated Gauze Pad Comment betadyne gauze Wound Secondary Dressing Type Gauze Roll/Wrap Comment kerlix/coban Wound Debridement Method Mechanical Plan/Recommendation Comment Pt does not tolerate sharp debridement or aggressive mechanical debridement - WTD betadyne gauze w/ daily dressing changes will allow tolerable mechanical debridement. Nsg to continue w/ daily dressing change, pt could benefit from surgical d
[2021-11-17 09:52] VITALS: BMI 45.7
--- NOTE | 2021-11-17 12:25 | PC.NURSE ---
Pt returned from CT
--- NOTE | 2021-11-17 13:43 | PC.WOUNDNOTE ---
Changed pts LLE dressing today and as dated it.
--- NOTE | 2021-11-17 13:44 | PC.NURSE ---
Spoke with aide from PT he stated that change pts dressing QD and PRN. Use betadine soaked gauze, wrap with kerlix dressing, and then outside wrap with coban.
--- NOTE | 2021-11-17 14:09 | PC.NURSE ---
Spoke with Dr. Cagle he stated that no surgery would be recommended. He wants him to follow up with Dr. Karimi, wound clinic, and refer to vascular surgery op in [place].
--- NOTE | 2021-11-17 14:13 | HMH.ORTHOCON ---
*Admission Date: 11/16/21 *Reason for consult:: left leg wound, cellulitis *History of present illness: Patient is a 46-year-old male admitted to the acute inpatient service on 11/16/2021 after presenting with worsening cellulitis of his left lower extremity. He reports this has been an ongoing issue for many years, but that the leg and wounds have worsened over the past week. He reports the wounds present on the anterior aspect of his left leg have been present for approximately 2 years. He has previously been under the care of Dr. Karimi, wound care, and was recently admitted to [facility] for the same issue. Today he reports worsening pain and erythema in the left distal leg. He denies fever, chills, rigors, or any systemic symptoms. He states he has not been to wound care in several months, but reports he has been changing dressings at home daily in addition to wearing compression stockings. His past medical history is significant for COPD, lymphedema, tobacco abuse, cellulitis, CHF, hypertension, and cirrhosis. He denies any other symptoms or concerns at this time. [facility] History Medical History: Reports:: Congestive Heart Failure, Chronic Obstructive Pulmonary Disease (COPD), Hypertension, Seizures Denies:: Cancer, Diabetes Mellitus Type 1, Diabetes Mellitus Type 2, MRSA *Have you ever received a pneumonia vaccine?: (unknown) *Have you received a flu vaccine this season?: (unknown) Other Medical History: Reports: Anemia, Arthritis, Hypothyroidism, Liver Disease. Denies: Blood Transfusion Reaction Laterality Cases: Bilateral: Tonsillectomy, Other Other Surgeries: Yes: Ureter Stent, Other Amputation: No Fractures: Yes - *Social History Smoking Status: Former smoker Tobacco Type: smokeless tobacco # Packs/Day (cigarettes): 1 Alcohol Intake: never Substance Use Type: denies use *Occupational Status:: other Housing: house Household Members: none *Travel in the last 8 weeks: None Family Hx:: No significant family history Review of Systems - Review of Systems Review of systems:: pertinent systems reviewed and negative unless documented below - Constitutional Denies anorexia, Denies body ache(s), Denies chills, Denies fatigue, Denies fever(s), Denies headache(s), Denies weakness - Eyes Denies blind spots, Denies blurry vision, Denies change in vision, Denies double vision - ENT Denies abnormal hearing, Denies dizziness, Denies headache(s), Denies nasal congestion, Denies nasal discharge, Denies nasal obstruction, Denies sore throat - *Cardiovascular Reports leg sores, Denies chest pain, Denies chest pain at rest, Denies shortness of breath, Denies radiating jaw, neck or arm pain - *Respiratory Denies chest congestion, Denies cough, Denies shortness of breath, Denies pain with cough, Denies wheezing - *Gastrointestinal Denies abdominal pain, Denies change in bowel habits, Denies change in stools, Denies constipation, Denies loose stools, Denies loose stools, Denies black, tarry stools, Denies nausea, Denies vomiting - *Genitourinary Denies difficulty urinating, Denies painful urination, Denies urinary frequency, Denies urinary incontinence, Denies urinary urgency - *Musculoskeletal Denies joint pain, Denies muscle weakness, Denies body aches, Denies neck pain, Denies numbness, Denies tingling - *Neurologic Reports weakness, Denies abnormal speech, Denies behavioral changes, Denies dizziness, Denies headache(s), Denies numbness, Denies radiating pain Meds Home Medications Medication Instructions Recorded Confirmed Type Rifaximin [Xifaxan 550mg Tablet] 550 mg PO BID 05/01/21 11/16/21 History Gabapentin 300 mg PO TID 11/16/21 11/16/21 History Metoprolol Succinate [Toprol XL 25 mg PO DAILY 11/16/21 11/16/21 History 25mg tablet] Mupirocin [Centany] 1 applic TOPICAL TID 11/16/21 11/16/21 History Potassium Chloride 20 meq PO DAILY 11/16/21 11/16/21 History Torsemide [Demadex] See Rx Instructions PO .C
[2021-11-17 16:00] VITALS: BP 129/66; PULSE 75; RESP 18; TEMP 36.6; O2SAT 98
[2021-11-17 20:00] VITALS: O2SAT 99
[2021-11-17 20:44] VITALS: BP 168/93; PULSE 71; RESP 18; TEMP 36.6; O2SAT 99
[2021-11-18 04:43] VITALS: BP 145/91; PULSE 81; RESP 20; TEMP 37; O2SAT 95
--- NOTE | 2021-11-18 06:47 | PC.NURSE ---
Pt pleasant and cooperative t/o shift. Pt c/o pain in LLE 1x t/o shift, Oxycodone 5mg administered per MAR with favorable results. DSG to E changed this shift. Call sandoval within reach.
[2021-11-18 07:51] LABS: Chloride 106 mmol/L (98-107); Sodium 134 mmol/L (136-145)
[2021-11-18 07:52] LABS: Potassium 4.2 mmoL/L (3.5-5.1)
[2021-11-18 07:54] LABS: Blood Urea Nitrogen 12 mg/dl (9-20); Creatinine Clearance Estimated 146 mL/min (50-200); Estimated Glomerular Filt Rate 144 ml/min (>60); GFR (African American) 174 ML/MIN (>60)
[2021-11-18 07:55] LABS: Anion Gap 6.2 mEq/L (5-15); Calcium 7.4 mg/dl (8.4-10.2); Carbon Dioxide 26 mmol/L (22.0-30.0); Glucose 94 mg/dl (74-100)
[2021-11-18 08:00] VITALS: BP 150/77; PULSE 78; RESP 20; TEMP 36.7; O2SAT 99
[2021-11-18 08:00] LABS: Basophils % 0.8 % (0.1-2.0); Eosinophils # 0.2 K/mm3 (0.0-0.4); Eosinophils % 5.6 % (0.1-12.0); Hematocrit 34.9 % (42.0-52.0); Hemoglobin 11.5 g/dL (14.1-18.0); Lymphocytes # 0.7 K/mm3 (0.7-4.5); Lymphocytes % 17.9 % (10-50); Mean Corpuscular Hemoglobin 30.5 pg (27.0-31.2); Mean Corpuscular Volume 92.3 fl (80-94); Mean Platelet Volume 9.2 fl (7.4-10.4); Monocytes # 0.3 K/mm3 (0.1-1.0); Monocytes % 7.4 % (1.7-9.3); Neutrophils # 2.8 K/mm3 (1.8-7.8); Neutrophils % 68.3 % (37.0-80.0); Platelet Count 111 K/mm3 (142-424); Red Blood Count 3.78 M/mm3 (4.60-6.20); Red Cell Distribution Width 17.8 % (11.5-17.5)
--- NOTE | 2021-11-18 10:30 | SW/DCPLANNER ---
Addendum entered by Sheri Suarez 11/18/21 12:38: [facility] has stated that services will begin tomorrow for this patient. Original Note: The plan is for this patient to discharge home today on P.O. antibiotics and will need home health services for dressing changes. Patient is agreeable with home health services and stated that he will have family/friends to assist with dressing changes at home. Patient information/order has been faxed to [facility] home health services. I will follow up with [facility] once information/order is reviewed.
--- NOTE | 2021-11-18 12:07 | HMH.DCSUM ---
General - General Admission date:: 11/16/21 Discharge date: 11/18/21 HPI HPI: Patient is a 46-year-old white male who is well-known to our service. He presented earlier today with worsening cellulitis of his distal left anterior calf. Cellulitis of the left lower extremity has been a recurrent and refractory issue. About a month ago he was admitted to [facility] for colitis in the same area. On that occasion he had marked swelling redness and warmth which improved transiently after IV antibiotics. The leg is gotten worse over the last week or so. Patient has been referred to wound care on several occasions, but has not followed through. His care of the wound at home is less than optimal. On exam in the office the left distal calf was found to be red, warm to the touch, with a deep ulceration. Given the extent of the redness and warmth elected to admit him for IV antibiotics. Hospital Course Hospital Course: Patient is a 46-year-old white male who is well-known to our service. He presented earlier today with worsening cellulitis of his distal left anterior calf. Cellulitis of the left lower extremity has been a recurrent and refractory issue. About a month ago he was admitted to [facility] for colitis in the same area. On that occasion he had marked swelling redness and warmth which improved transiently after IV antibiotics. The leg is gotten worse over the last week or so. 11/17/21 LLE CTA: FINDINGS: Thin section axial CT images of the abdomen, pelvis and lower extremities were obtained with contrast. Multiplanar reformatted images were also obtained and reviewed. PELVIS: There is no distal abdominal aortic aneurysm or dissection. There is no significant stenosis of the right common iliac artery or external right iliac artery. There is no significant stenosis of the left common iliac artery or external left iliac artery. The internal iliac arteries are patent. RIGHT LOWER EXTREMITY: There is no significant stenosis of the right common femoral or superficial femoral arteries. The right deep femoral artery is patent. The right popliteal artery is patent. There is three-vessel runoff to the distal lower leg. LEFT LOWER EXTREMITY: There is no significant stenosis of the left common femoral or superficial femoral arteries. The left deep femoral artery is patent. The left popliteal artery is patent. There is three-vessel runoff to the distal lower leg. There is skin thickening of the left lower leg with subcutaneous stranding that could represent edema or cellulitis. There is no fluid collection to suggest abscess. Note is made of bilateral knee joint effusions. OTHER FINDINGS: No evidence of significant stenosis. IMPRESSION: No significant vascular disease. Skin thickening and subcutaneous stranding of the left lower leg could represent edema or cellulitis. No fluid collection to suggest abscess. Reviewed, Interpreted and Dictated by Claudio Kuhn III, MD Ortho has seen and recommends: Rounded with Dr. Cagle; we have discussed the clinical findings and diagnostic imaging with the patient. We have discussed all management options and the associated risks/benefits of each. Today we have recommended continued conservative management for his cellulitis/chronic venous ulcers with continued wound care and antibiotics; continue antibiotic regimen as per Dr. Stanton. We have also recommended he follow-up with Dr. Karimi for further evaluation/management on an outpatient basis. We have also discussed with the patient that he would likely benefit in being referred to a vascular surgeon in [place] for further evaluation, again on an outpatient basis. At this time there is no need for immediate surgical orthopedic intervention. We have discussed with the patient the high importance of aggressive wound care, maintaining a healthy weight and diet, and smoking cessation. Continue rest, ice, elevation, activity
--- NOTE | 2021-11-18 12:44 | HMH.PHAINT ---
Spoke with the patient about his medication list. Went over the new medications that were being sent in for the patient. When we spoke, there were no questions or concerns. Patient was provided a copy of the medication list.
--- NOTE | 2021-11-19 15:11 | CARE MANAGER ---
[place] with Mr. Ragland for follow-up following hospital discharge. He states the nurse from home health was at this house today and will return next week. He got his antibiotics and script for anti-inflammtories. No needs at this time.
== END 2021-11-18 13:29 | disposition home or self-care (01) ==
PROVIDERS: Nurse Practitioner Family; Admitting Provider Family Medicine; PCP Family Medicine; Visit Provider Family Medicine
DX: L97.222 Non-pressure chronic ulcer of left calf with fat layer exposed; I87.2 Venous insufficiency (chronic) (peripheral); E66.01 Morbid (severe) obesity due to excess calories; Z68.42 Body mass index [BMI] 45.0-49.9, adult; F17.210 Nicotine dependence, cigarettes, uncomplicated; I89.0 Lymphedema, not elsewhere classified; L03.116 Cellulitis of left lower limb; I83.022 Varicose veins of left lower extremity with ulcer of calf; L97.922 Non-pressure chronic ulcer of unspecified part of left lower leg with fat layer exposed; Z20.822 Contact with and (suspected) exposure to COVID-19
CPT/HCPCS: G0378; G0379; 36415; 73701; 80048; 80053; 82140; 85025; 87040; 87070; 87077; 87081; 87186; 87205; 94640; C9803; J3370; Q9967; U0003; U0005

== ENCOUNTER 2021-12-10 10:19 | Inpatient (IN) | payer MEDICARE, OTHER, SELFPAY ==
[2021-12-10 10:40] VITALS: BP 153/88; PULSE 95; RESP 20; TEMP 36.6; O2SAT 99
[2021-12-10 10:49] VITALS: BMI 43.3
[2021-12-10 11:51] LABS: Coronavirus 19, PCR Not Detected (NotDetected); Influenza A, PCR Not Detected (NotDetected); Influenza B, PCR Not Detected (NotDetected)
--- NOTE | 2021-12-10 12:44 | XR_ITS ---
FINAL REPORT CLINICAL HISTORY: evaluate for osteo FINDINGS: LEFT TIBIA FIBULA Two views were obtained. There is no acute fracture or dislocation. The joint spaces appear normal. There is soft tissue edema anterior to the tibia measuring 1.9 cm in depth. No bony erosion is identified. There is no periosteal reaction. There is a moderate plantar spur. IMPRESSION: Soft tissue edema anterior to the tibia. Reviewed, Interpreted and Dictated by Joe Benavidez MD Transcribed by Alley Adair Authenticated by Joe Benavidez MD on 12/10/2021 01:27:00 PM [facility]
--- NOTE | 2021-12-10 14:00 | HMH.PTWOUND ---
Rehab Inpt Wound Evaluation Rehab IP Wound Evaluation Start: 12/10/21 13:33 Freq: ONCE Status: Active Protocol: Document 12/10/21 13:56 [email or web address] (Rec: 12/10/21 13:59 PHORNE [id number]) Rehab PT Wound Assessment Subjective Subjective 46 yowm adm to [facility] with L LE cellulitis. Pt has had L anterior valero wound for quite sometime and is non-compliant with at home treatment. Wound Left Anterior Valero Wound Type Stasis Ulcer Is This a Chronic Wound Yes Wound Length (cm) 10.0 Wound Width (cm) 14.0 Wound Bed Appearance Beefy Red,Yellow Percentage Granulated (%) 50 Percentage of Slough (%) 50 Wound Margins Description Indistinct Surrounding Tissue Appearance Bright Red Edema Type Pitting Edema Degree 1+ Query Text:1+ Trace, Barely Detectable, Rebound 15-30 seconds 2+ Moderate, Slight Indentation, Rebound 10-20 seconds 3+ Deep, Deeper Indentation, Rebound > 30 seconds 4+ Very Deep, Rebound > 60 seconds Edema Appearance Hard Surrounding Tissue Temperature Warm Wound Drainage Description Serosanguineous Drainage Amount Large Primary Dressing Silver Dressing Comment opticell Ag Wound Secondary Dressing Type Absorbant Pad,Gauze Roll/Wrap Comment Qwick Wound Debridement Method Gauze Wound Debridement Amount of Tissue Minimal Removed Dressing Change Patient Tolerance Tolerated Well Plan/Recommendation Comment Will follow for further wound care pending Ortho consult. Eval Complexity Eval Charge Codes 85863 - Moderate Complexity PHYSICIAN CERTIFICATION: I certify the specified therapy services for Vinodsunil Ragland JR are required, authorized, and reviewed every 30 days.
[2021-12-10 14:11] LABS: Chloride 104 mmol/L (98-107); Potassium 3.8 mmoL/L (3.5-5.1); Sodium 136 mmol/L (136-145)
[2021-12-10 14:13] LABS: Alanine Aminotransferase 69 U/L (12-78); Blood Urea Nitrogen 7 mg/dl (9-20); Creatinine Clearance Estimated 151 mL/min (50-200); Estimated Glomerular Filt Rate 144 ml/min (>60); GFR (African American) 174 ML/MIN (>60)
[2021-12-10 14:14] LABS: Albumin/Globulin Ratio 0.8 (1.1-1.8); Alkaline Phosphatase 318 U/L (38-126); Anion Gap 6.8 mEq/L (5-15); Aspartate Amino Transferase 137 U/L (17-59); Bilirubin,Total 2.3 mg/dl (0.2-1.3); Calcium 8.1 mg/dl (8.4-10.2); Carbon Dioxide 29 mmol/L (22.0-30.0); Globulin 3.9 g/dL (1.3-3.2); Glucose 94 mg/dl (74-100); Total Protein,Serum 6.9 g/dl (6.3-8.2)
--- NOTE | 2021-12-10 14:39 | HMH.ORTHOCON ---
*Admission Date: 12/10/21 <Clari Rasheed 12/10/21 14:44> *Reason for consult:: left lower extremity cellulitis <Clari Rasheed 12/10/21 14:44> *History of present illness: Patient is a 46-year-old male admitted to the acute inpatient service on 12/10/2021 after presenting with worsening cellulitis of his left lower extremity. He states that this has been an ongoing issue for many years, but that the wounds present over the anterior aspect of his left valero have acutely worsened over the past week. He states that the wounds have been present for approximately 2 years, he was most recently admitted to [facility] on 11/16/2021 for the same issue. He has previously been under the care of Dr. Karimi and wound care, but states that he has not been since his last inpatient visit. It was also recommended at his last inpatient admission that he be referred to a vascular surgeon in [place] for further evaluation, he states that he has not been evaluated by a vascular surgeon since that time. Today he reports worsening pain, erythema, and drainage in the left distal leg. He reports subjectively feeling feverish, but has not checked his temperature at home. He states that he has been changing dressings at home with the assistance of home health. His past medical history significant for COPD, lymphedema, tobacco abuse, cellulitis, CHF, hypertension, and cirrhosis. He denies any other symptoms or concerns at this time. <Clari Rasheed 12/10/21 14:44> [facility] History Medical History: Reports:: Congestive Heart Failure, Chronic Obstructive Pulmonary Disease (COPD), Hyperlipidemia, Hypertension, Peripheral Vascular Disease, Seizures Denies:: Cancer, Diabetes Mellitus Type 1, Diabetes Mellitus Type 2, MRSA <Clari Rasheed 12/10/21 14:44> *Have you ever received a pneumonia vaccine?: No <Clari Rasheed 12/10/21 14:44> *Have you received a flu vaccine this season?: No <Clari Rasheed 12/10/21 14:44> Other Medical History: Reports: Anemia, Arthritis, Hypothyroidism, Liver Disease. Denies: Blood Transfusion Reaction <Clari Rasheed 12/10/21 14:44> Laterality Cases: Bilateral: Tonsillectomy, Other <Clari Rasheed 12/10/21 14:44> Other Surgeries: Yes: Ureter Stent, Other <Clari Rasheed 12/10/21 14:44> Amputation: No <Clari Rasheed 12/10/21 14:44> Fractures: Yes <Clari Rasheed 12/10/21 14:44> - *Social History Last grade of school completed: 9th or 10th <Clari Rasheed 12/10/21 14:44> Smoking Status: Former smoker <Clari Rasheed 12/10/21 14:44> Tobacco Type: smokeless tobacco <Clari Rasheed 12/10/21 14:44> # Packs/Day (cigarettes): 1 <Clari Rasheed 12/10/21 14:44> Alcohol Intake: never <Clari Rasheed 12/10/21 14:44> Substance Use Type: crack/cocaine, opiates <Clari Rasheed 12/10/21 14:44> *Occupational Status:: disabled <Clari Rasheed 12/10/21 14:44> Housing: house <Clari Rasheed 12/10/21 14:44> Household Members: none <Clari Rasheed 12/10/21 14:44> *Travel in the last 8 weeks: None <Clari Rasheed 12/10/21 14:44> Family Hx:: No significant family history <Clari Rasheed 12/10/21 14:44> Review of Systems - Review of Systems Review of systems:: pertinent systems reviewed and negative unless documented below <Clari Rasheed 12/10/21 14:44> - Constitutional Reports chills, Reports fever(s), Reports malaise, Denies anorexia, Denies body ache(s), Denies headache(s), Denies night sweats, Denies weakness <Clari Rasheed 12/10/21 14:57> - Eyes Denies blind spots, Denies change in vision, Denies double vision <Clari Rasheed 12/10/21 14:57> - ENT Denies poor balance, Denies headache(s), Denies nasal congestion, Denies neck pain, Denies sore throat <Clari Rasheed - 12/10/21 14:57> - *Cardiovascular Reports leg sores, Denies chest pain, Denies chest pain at rest, Denies shortness of breath, Denies radiating jaw, neck or arm pain <Rudolph
[2021-12-10 14:46] LABS: Eosinophils # 0.2 K/mm3 (0.0-0.4); Eosinophils % 7.7 % (0.1-12.0); Hematocrit 37.2 % (42.0-52.0); Hemoglobin 12.2 g/dL (14.1-18.0); Lymphocytes # 0.9 K/mm3 (0.7-4.5); Lymphocytes % 29.8 % (10-50); Mean Corpuscular HGB Conc 32.8 g/dL (31.8-35.4); Mean Corpuscular Hemoglobin 30.6 pg (27.0-31.2); Mean Corpuscular Volume 93.1 fl (80-94); Mean Platelet Volume 8.1 fl (7.4-10.4); Monocytes # 0.2 K/mm3 (0.1-1.0); Monocytes % 5.3 % (1.7-9.3); Neutrophils # 1.7 K/mm3 (1.8-7.8); Neutrophils % 56.3 % (37.0-80.0); Platelet Count 85 K/mm3 (142-424); Red Blood Count 3.99 M/mm3 (4.60-6.20); Red Cell Distribution Width 17.6 % (11.5-17.5); White Blood Count 3.1 K/mm3 (4.8-10.8)
[2021-12-10 14:54] LABS: Ammonia 103 umol/L (9-30)
--- NOTE | 2021-12-10 15:15 | PC.WOUNDNOTE ---
open decubitus and cellulitis on left leg
[2021-12-10 15:47] VITALS: BMI 43.4
[2021-12-10 16:00] VITALS: BP 163/92; PULSE 90; RESP 20; TEMP 36.7; O2SAT 100
--- NOTE | 2021-12-10 16:25 | MR_ITS ---
PROCEDURE INFORMATION: Exam: MR Left Lower Extremity Without and With Contrast, Tibia Fibula Exam date and time: 12/10/2021 4:43 PM Age: 46 years old Clinical indication: Pain; Lower leg; Left; Additional info: Rule out celluitis TECHNIQUE: Imaging protocol: MR of the Left lower extremity without and with contrast. Exam focused on the tibia and fibula. Contrast material: ISOVUE; Contrast volume: 27 ml; Contrast route: IV; COMPARISON: CT ANGIO LE BI 11/17/2021 11:19 AM FINDINGS: Bones/joints: Moderate knee joint effusion. Subcortical marrow edema at the anterior tibial plateau, likely degenerative. No discrete fracture line. No lytic destructive changes of cortex to suggest osteomyelitis or septic arthritis. Minimal subarticular marrow edema in the distal tibia at the ankle series 12, image 15. Marrow signal pattern is otherwise within normal limits, as visualized. Muscles: Unremarkable. Soft tissues: Subcutaneous soft tissue edema in the left calf, ankle and foot. Multifocal skin thickening and edema in the anterior distal calf with cutaneous erosions/shallow ulcerations and underlying blistering/bullous changes. The most prominent cutaneous or subcutaneous lesion measures approximately 5.6 cm length on sagittal series 12, image 15, and 3.8 cm with, 7 mm depth on axial series 24, image 37. Similar smaller lesion located laterally measures approximately 3 cm length on sagittal series 12, image 21, 2.4 cm diameter and 5 mm depth on series 24, image 37. No other organized fluid collection. No soft tissue emphysema detected. IMPRESSION: 1. Soft tissue edema in the calf, with areas of cutaneous erosion/ulceration and likely underlying blistering/bullous changes as detailed above. This is probably infection/cellulitis, correlate clinically. Other exudative/ulcerative/bullous diseases of the skin would also be considered, e.g. bullous pemphigus vulgaris or sequela of systemic or autoimmune diseases. 2. No deep organized abscess collection. 3. No findings of osteomyelitis or septic arthritis. 4. Moderate left knee joint effusion, and adjacent mild subcortical marrow edema in the tibia which is likely degenerative. 5. Additional nonemergency and chronic findings as above.
--- NOTE | 2021-12-10 18:03 | HMH.HP ---
*Admission Date: 12/10/21 *Chief complaint: cellulitis *History of present illness: Patient is a 46-year-old white male, well-known to the service, admitted from the office earlier today with cellulitis of the left lower extremity. This has been an ongoing issue for him, specifically 2 skin lesions on the left anterior calf which have been refractory to healing for quite some time. Patient has had multiple admissions for cellulitis, he gets some transient improvement with antibiotics but is known to be noncompliant. He currently has home health services who are assisting with wound care, but he cannot relay specifics of regimen for wound care, dressing type, etc. Patient does not have a history of diabetes Patient relays subjective fever and chills but has not formally measured his temperature. No recent trauma There are 2 distinct ulcerations on the anterior calf that are moving in the direction of becoming confluent. There is dry eschar at each wound, there is redness around each wound extending proximally up the leg. There are clinical concerns of osteomyelitis in the tibia. Patient has a history of chronic liver disease, is status post TIPS procedure. He is on a regimen of Xifaxan and lactulose, compliance is questionable. He is neurologically at his baseline, no suggestion of confusion or elevated ammonia level. I have not known him to be encephalopathic. [facility] History Medical History: Reports:: Congestive Heart Failure, Chronic Obstructive Pulmonary Disease (COPD), Hyperlipidemia, Hypertension, Peripheral Vascular Disease, Seizures Denies:: Cancer, Diabetes Mellitus Type 1, Diabetes Mellitus Type 2, MRSA *Have you ever received a pneumonia vaccine?: No *Have you received a flu vaccine this season?: No Other Medical History: Reports: Anemia, Arthritis, Hypothyroidism, Liver Disease. Denies: Blood Transfusion Reaction Laterality Cases: Bilateral: Tonsillectomy, Other Other Surgeries: Yes: Ureter Stent, Other Amputation: No Fractures: Yes - *Social History Last grade of school completed: 9th or 10th Smoking Status: Former smoker Tobacco Type: smokeless tobacco # Packs/Day (cigarettes): 1 Alcohol Intake: never Substance Use Type: crack/cocaine, opiates *Occupational Status:: disabled Housing: house Household Members: none *Travel in the last 8 weeks: None Family Hx:: No significant family history Review of Systems - Constitutional Reports chills, Reports fever(s), Reports malaise - Eyes Denies change in vision - ENT Denies abnormal hearing - *Cardiovascular Denies chest pain - *Respiratory Denies chest congestion - *Gastrointestinal Denies abdominal pain - *Genitourinary Denies difficulty urinating - *Musculoskeletal Reports muscle weakness, Reports stiffness - Integumentary/Breasts Reports changing lesions, Denies yellowing of the skin - *Neurologic Denies abnormal walking, Denies abnormal speech, Denies unsteadiness, Denies headache(s), Denies numbness, Denies tingling, Denies weakness - Psychiatric Denies behavioral changes - Endocrine Reports flushing - Allergic/Immunologic Reports wheezing, Denies hives Meds Home Medications Medication Instructions Recorded Confirmed Type Rifaximin [Xifaxan 550mg Tablet] 550 mg PO BID 05/01/21 12/10/21 History Metoprolol Succinate [Toprol XL 25 mg PO DAILY 11/16/21 12/10/21 History 25mg tablet] Potassium Chloride 20 meq PO DAILY 11/16/21 12/10/21 History Torsemide [Demadex] 20 mg PO DIRECTED 11/16/21 12/10/21 History Albuterol Sulfate [Proventil Hfa] 2 puff IH QIDP PRN 11/17/21 12/10/21 History Fluticasone/Umeclidin/Vilanter 1 inh INHALATION DAILY 11/17/21 12/10/21 History [Trelegy Ellipta 200-62.5-25] Lisinopril/Hydrochlorothiazide 1 tab PO DAILY 11/17/21 12/10/21 History [Lisinopril-Hctz 10-12.5 mg Tab] gabapentin 300 mg capsule 300 mg PO TID PRN #90 cap 11/26/21 12/10/21 Rx Allergies Allergy/AdvReac Type Severity Re
--- NOTE | 2021-12-10 18:18 | XR_ITS ---
PROCEDURE INFORMATION: Exam: XR Chest Exam date and time: 12/10/2021 6:27 PM Age: 46 years old Clinical indication: Other: Chf TECHNIQUE: Imaging protocol: XR of the chest. Portable AP exam 6:28 p.m. Views: 1 view. Two images received. COMPARISON: CR XR CHEST PORTABLE 07/26/2021 12:33 PM FINDINGS: Lungs: Persistent asymmetric right lower pulmonary interstitial prominence, but underlying hazy airspace opacity has largely resolved since the prior exam from 07/26/2021. No focal consolidation. Normal lung volumes. Pleural spaces: Unremarkable. No significant pleural effusion. No pneumothorax. Heart/Mediastinum: Mild cardiomegaly, accentuated by portable AP technique. Bones/joints: There are spinal degenerative changes, with multilevel disc narrrowing and spondylosis. IMPRESSION: 1. Cardiomegaly. 2. Improved aeration of the right lower lobe compared with 07/26/2021, but there is residual or recurrent asymmetric right lower pulmonary interstitial prominence and peribronchial thickening which could be bronchitis or vascular congestion. No focal consolidation.
[2021-12-10 20:00] VITALS: BP 143/98; PULSE 97; RESP 22; TEMP 37.1; O2SAT 100
[2021-12-11 04:00] VITALS: BP 153/68; PULSE 94; RESP 18; TEMP 36.9; O2SAT 96
[2021-12-11 04:56] VITALS: BMI 43.4
--- NOTE | 2021-12-11 04:59 | PC.NURSE ---
Redressed LLE patient tolerated well. Medicated patient for pain per MAR. VSS.
[2021-12-11 08:00] VITALS: BP 147/54; PULSE 103; RESP 22; TEMP 36.6; O2SAT 100
[2021-12-11 08:35] LABS: Chloride 101 mmol/L (98-107); Potassium 3.3 mmoL/L (3.5-5.1); Sodium 136 mmol/L (136-145)
[2021-12-11 08:38] LABS: Anion Gap 6.3 mEq/L (5-15); Blood Urea Nitrogen 10 mg/dl (9-20); Calcium 8.1 mg/dl (8.4-10.2); Carbon Dioxide 32 mmol/L (22.0-30.0); Creatinine Clearance Estimated 109 mL/min (50-200); Estimated Glomerular Filt Rate 103 ml/min (>60); GFR (African American) 125 ML/MIN (>60); Glucose 166 mg/dl (74-100)
[2021-12-11 09:05] LABS: Basophils % 0.5 % (0.1-2.0); Eosinophils # 0.2 K/mm3 (0.0-0.4); Eosinophils % 5.1 % (0.1-12.0); Hematocrit 38.8 % (42.0-52.0); Hemoglobin 13.2 g/dL (14.1-18.0); Lymphocytes # 0.6 K/mm3 (0.7-4.5); Lymphocytes % 14.8 % (10-50); Mean Corpuscular HGB Conc 33.9 g/dL (31.8-35.4); Mean Corpuscular Hemoglobin 31.3 pg (27.0-31.2); Mean Corpuscular Volume 92.3 fl (80-94); Monocytes # 0.2 K/mm3 (0.1-1.0); Monocytes % 5.6 % (1.7-9.3); Neutrophils # 2.8 K/mm3 (1.8-7.8); Platelet Count 83 K/mm3 (142-424); Red Cell Distribution Width 16.3 % (11.5-17.5); White Blood Count 3.8 K/mm3 (4.8-10.8)
--- NOTE | 2021-12-11 09:41 | P.CONPHA_ITS ---
[facility] Pharm[facility] VTE Monitoring - Patient Demographics Admission date: 12/10/21 Report Date: 12/11/21 Time: 09:41 Allergies/Adverse Reactions: Patient Allergies codeine Allergy (Severe, Verified 12/10/21 09:44) Anaphylaxis guaifenesin [From Mucinex] Allergy (Severe, Verified 12/10/21 09:44) SWELLS ketorolac [From Toradol] Allergy (Severe, Verified 12/10/21 09:44) Difficulty Swallowing Height: 1.75 m Weight: 133.175 kg Patient Problems: Current Active Problems Leg wound, left (Acute) Left leg cellulitis (Acute) Venous stasis (Chronic) Venous ulcer of left leg (Chronic) Non compliance with medical treatment (Acute) Left leg pain (Chronic) Obesity (Chronic) History of hypertension (Chronic) Uncontrolled pain (Chronic) COPD (chronic obstructive pulmonary disease) (Chronic) Cirrhosis (Chronic) Chronic pain (Chronic) - VTE Risk Labs: VTE Related Lab Results Hgb 13.2 g/dL (14.1-18.0) L 12/11/21 08:12 Hct 38.8 % (42.0-52.0) L 12/11/21 08:12 Plt Count 83 K/mm3 (142-424) L 12/11/21 08:12 BUN 10 mg/dl (9-20) D 12/11/21 08:12 Creatinine 0.80 mg/dl (0.66-1.25) D 12/11/21 08:12 Estimated Creat Clear 109 mL/min (50-200) 12/11/21 08:12 VTE Score: 3 VTE Risk Level: Low Risk - Prophylaxis VTE Prophylaxis Ordered?: Yes Types of VTE Prophylaxis: TEDS Knee High Location of Applied Device: Right Leg
--- NOTE | 2021-12-11 09:48 | HMH.PHAINT ---
MEDICATION RECONCILIATION COMPLETED ON PATIENT USING EXTERNAL FILL HISTORY FROM PHARMACY AND LIST FROM PCP OFFICE. -EDILIA NORIEGAD
--- NOTE | 2021-12-11 11:46 | HMH.ACPN2 ---
Internal Medicine - PN: Subj *Date: 12/12/21 *Time: 10:31 Interval history: doing better this am - leg improved - labs ok Exam Vital signs and Labs for Last 24 Hours: Temp Pulse Resp BP Pulse Ox 97.8 F 103 H 22 147/54 H 100 12/11/21 08:00 12/11/21 08:00 12/11/21 08:00 12/11/21 08:00 12/11/21 08:00 Laboratory Results - last 24 hr 12/10/21 11:45: SARS-CoV-2 (PCR) Not detected, Influenza A Untype (PCR) Not detected, Influenza Type B (PCR) Not detected 12/10/21 13:45: Sodium 136, Potassium 3.8, Chloride 104, Carbon Dioxide 29, Anion Gap 6.8, BUN 7 L, Creatinine 0.60 L, Estimated Creat Clear 151, Estimated GFR 144, Est GFR ( Amer) 174, Glucose 94, Calcium 8.1 L, Total Bilirubin 2.3 H, AST 137 H, ALT 69, Alkaline Phosphatase 318 H, Total Protein 6.9, Albumin 3.0 L, Globulin 3.9 H, Albumin/Globulin Ratio 0.8 L 12/10/21 14:28: WBC 3.1 L, RBC 3.99 L, Hgb 12.2 L, Hct 37.2 L, MCV 93.1, MCH 30.6, MCHC 32.8, RDW 17.6 H, Plt Count 85 L, MPV 8.1, Neut % (Auto) 56.3, Lymph % (Auto) 29.8, [place] % (Auto) 5.3, Eos % (Auto) 7.7, Baso % (Auto) 1.0, Neut # (Auto) 1.7 L, Lymph # (Auto) 0.9, [place] # (Auto) 0.2, Eos # (Auto) 0.2, Baso # (Auto) 0.0 12/10/21 14:28: Ammonia 103 H 12/11/21 08:12: WBC 3.8 L, RBC 4.20 L, Hgb 13.2 L, Hct 38.8 L, MCV 92.3, MCH 31.3 H, MCHC 33.9, RDW 16.3, Plt Count 83 L, MPV 8.0, Neut % (Auto) 74.0, Lymph % (Auto) 14.8, [place] % (Auto) 5.6, Eos % (Auto) 5.1, Baso % (Auto) 0.5, Neut # (Auto) 2.8, Lymph # (Auto) 0.6 L, [place] # (Auto) 0.2, Eos # (Auto) 0.2, Baso # (Auto) 0.0 12/11/21 08:12: Sodium 136, Potassium 3.3 L, Chloride 101, Carbon Dioxide 32 H, Anion Gap 6.3, BUN 10 D, Creatinine 0.80 D, Estimated Creat Clear 109, Estimated GFR 103, Est GFR ( Amer) 125 D, Glucose 166 H D, Calcium 8.1 L I & O for Last 24 hours: Intake & Output 12/08/21 12/09/21 12/10/21 12/11/21 11:59 11:59 11:59 11:59 Intake Total 1200 / 1200 Output Total 4350 / 4350 Balance -3150 / -3150 Weight 293 lb 6 oz 293 lb 9.6 oz Microbiology Reports for the Last 24 Hours: Microbiology 12/10/21 11:50 Leg,Left - Left Gram Stain - Final 12/10/21 11:50 Leg,Left - Left Wound Culture - Preliminary - Constitutional no acute distress, obese - *Routine HEENT Exam Head: Present: normocephalic Eye: Present: EOMI, PERRL ENT: Present: mucous membranes dry - *Routine Neck Exam Absent: JVD - *Routine Respiratory Exam Present: decreased breath sounds - *Routine Cardiovascular Exam Present: RRR - *Routine Abdominal Exam Present: soft - *Routine Extremities Exam Absent: calf tenderness - *Routine Skin Exam Comments: cellulitis with dressing applied - *Routine Neurological Exam Present: alert, CN II-XII intact - Routine Psychiatric Exam Present: normal affect Assessment and Plan (1) Left leg cellulitis Status: Acute Category: Medical Code(s): L03.116 - Cellulitis of left lower limb (2) Leg wound, left Status: Acute Qualifiers: Encounter type: subsequent encounter Qualified Code(s): S81.802D - Unspecified open wound, left lower leg, subsequent encounter Category: Medical Code(s): S81.802A - Unspecified open wound, left lower leg, initial encounter (3) Non compliance with medical treatment Status: Acute Category: Medical Code(s): Z91.19 - Patient's noncompliance with other medical treatment and regimen (4) COPD (chronic obstructive pulmonary disease) Status: Chronic Qualifiers: COPD type: unspecified COPD Qualified Code(s): J44.9 - Chronic obstructive pulmonary disease, unspecified Category: Medical Code(s): J44.9 - Chronic obstructive pulmonary disease, unspecified (5) Chronic pain Status: Chronic Qualifiers: Chronic pain type: other chronic postprocedural pain Qualified Code(s): G89.28 - Other chronic postprocedural pain Category: Medical Code(s): G89.29 - Other chronic pain (6) Cirrhosis Status: Chronic Qualifi
--- NOTE | 2021-12-11 15:39 | PC.NURSE ---
PT IS RESTING IN BED. ALERT AND ORIENTED X4. EATING AND DRINKING WELL. MEDICATED PER MAR FOR DISCOMFORT. IT WAS NOTED ON ASSESSMENT THAT PT HAD A RED RASH AROUND HIS MOUTH, NECK, ARMS AND LEGS. NOTIFIED PCP (DIFLICAN DAILY WAS ORDERED AND A ONE TIME DOSE OF BENADRYL). RASH HAS IMPROVED SINCE RECEIVING BENADRYL. LUNG SOUNDS CLEAR. ABDOMEN SOFT/NON TENDER WITH ACTIVE BOWEL SOUNDS. DRESSING TO THE LLE C/D/I. SWELLING NOTED TO BLE. WILL CONTINUE TO MONITOR.
[2021-12-11 16:00] VITALS: BP 124/89; PULSE 84; RESP 20; TEMP 36.8; O2SAT 95
[2021-12-11 20:00] VITALS: BP 126/78; PULSE 84; RESP 18; TEMP 36.8; O2SAT 95
--- NOTE | 2021-12-12 03:08 | PC.NURSE ---
Changed patient dressing to lt lower extremity, serosanguinous drainage noted. Patient medicated for pain per OCT. Patient recieved ABX per oct. Patient resting VSS.
[2021-12-12 04:00] VITALS: BP 122/69; PULSE 68; RESP 16; TEMP 36.6; O2SAT 96
[2021-12-12 05:00] VITALS: BMI 43.4
[2021-12-12 08:00] VITALS: BP 141/63; PULSE 80; RESP 20; TEMP 36.8; O2SAT 99
--- NOTE | 2021-12-12 10:32 | HMH.ACPN2 ---
Internal Medicine - PN: Subj *Date: 12/13/21 *Time: 12:51 Interval history: doing better at this time - will check labs Exam Vital signs and Labs for Last 24 Hours: Temp Pulse Resp BP Pulse Ox 98.3 F 80 20 141/63 H 99 12/12/21 08:00 12/12/21 08:00 12/12/21 08:00 12/12/21 08:00 12/12/21 08:00 I & O for Last 24 hours: Intake & Output 12/09/21 12/10/21 12/11/21 12/12/21 11:59 11:59 11:59 11:59 Intake Total 1200 / 1200 3241 / 3241 Output Total 4350 / 4350 3150 / 3150 Balance -3150 / -3150 91 / 91 Weight 293 lb 6 oz 293 lb 9.6 oz 293 lb 9 oz Microbiology Reports for the Last 24 Hours: Microbiology 12/10/21 11:50 Anus CRE Surveillance Culture - Final Negative 12/10/21 11:50 Leg,Left - Left Gram Stain - Final 12/10/21 11:50 Leg,Left - Left Wound Culture - Preliminary - Constitutional no acute distress, obese - *Routine HEENT Exam Head: Present: normocephalic Eye: Present: EOMI, PERRL ENT: Present: mucous membranes dry - *Routine Neck Exam Absent: JVD - *Routine Respiratory Exam Present: CTA bilaterally - *Routine Cardiovascular Exam Present: RRR - *Routine Abdominal Exam Present: soft - *Routine Extremities Exam Absent: calf tenderness - *Routine Neurological Exam Present: alert, CN II-XII intact - Routine Psychiatric Exam Present: cooperative Assessment and Plan (1) Left leg cellulitis Status: Acute Category: Medical Code(s): L03.116 - Cellulitis of left lower limb (2) Leg wound, left Status: Acute Qualifiers: Encounter type: subsequent encounter Qualified Code(s): S81.802D - Unspecified open wound, left lower leg, subsequent encounter Category: Medical Code(s): S81.802A - Unspecified open wound, left lower leg, initial encounter (3) Non compliance with medical treatment Status: Acute Category: Medical Code(s): Z91.19 - Patient's noncompliance with other medical treatment and regimen (4) COPD (chronic obstructive pulmonary disease) Status: Chronic Qualifiers: COPD type: unspecified COPD Qualified Code(s): J44.9 - Chronic obstructive pulmonary disease, unspecified Category: Medical Code(s): J44.9 - Chronic obstructive pulmonary disease, unspecified (5) Chronic pain Status: Chronic Qualifiers: Chronic pain type: other chronic postprocedural pain Qualified Code(s): G89.28 - Other chronic postprocedural pain Category: Medical Code(s): G89.29 - Other chronic pain (6) Cirrhosis Status: Chronic Qualifiers: Hepatic cirrhosis type: other cirrhosis Qualified Code(s): K74.69 - Other cirrhosis of liver Category: Medical Code(s): K74.60 - Unspecified cirrhosis of liver (7) History of hypertension Status: Chronic Category: Medical Code(s): Z86.79 - Personal history of other diseases of the circulatory system (8) Left leg pain Status: Chronic Category: Medical Code(s): M79.605 - Pain in left leg (9) Obesity Status: Chronic Qualifiers: Obesity type: due to excess calories Obesity classification: adult class 3 (BMI >= 40) Serious obesity comorbidity presence: with serious comorbidity Body mass index: BMI 40.0-44.9 Qualified Code(s): E66.01 - Morbid (severe) obesity due to excess calories; Z68.41 - Body mass index [BMI] 40.0-44.9, adult Category: Medical Code(s): E66.9 - Obesity, unspecified (10) Uncontrolled pain Status: Chronic Category: Medical Code(s): R52 - Pain, unspecified (11) Venous ulcer of left leg Status: Chronic Category: Medical Code(s): I83.029 - Varicose veins of left lower extremity with ulcer of unspecified site; L97.929 - Non-pressure chronic ulcer of unspecified part of left lower leg with unspecified severity (12) Venous stasis Status: Chronic Category: Medical Code(s): I87.8 - Other specified disorders of veins (13) Hepatic encephalopathy Status: Acute Category
[2021-12-12 16:00] VITALS: BP 152/59; PULSE 78; RESP 20; TEMP 36.7; O2SAT 98
--- NOTE | 2021-12-12 17:48 | PC.NURSE ---
Addendum entered by Macarena Johnson RN 12/12/21 17:49: Dilaudid given for pain in legs, relief noted after each dose Original Note: No acute changes. Patient alert and orientedX4. VS stable and pt on room air. Patient able to tolerate sitting in chair for majority of evening in the shift.
[2021-12-12 22:11] VITALS: BP 114/64; PULSE 82; RESP 16; TEMP 36.5; O2SAT 99
[2021-12-13 05:00] VITALS: BMI 43.2
--- NOTE | 2021-12-13 05:19 | PC.NURSE ---
Pt has c/o pain approx. every 4 hrs this shift. Treated with diladid and voiced that it was effective for a short period. Pt did remove dressing x1 this shft to take a shower. Dressing replaced after shower. No adverse reactions noted due to abt. therapy. Voiced no hives, swelling or itching. with abt tx. pt up ad kendrick and able to make needs known.
[2021-12-13 06:02] VITALS: BP 133/71; PULSE 73; RESP 18; TEMP 36.6; O2SAT 96
[2021-12-13 07:39] VITALS: BP 139/65; PULSE 76; RESP 18; TEMP 36.7; O2SAT 95
[2021-12-13 08:00] VITALS: O2SAT 95
[2021-12-13 09:00] LABS: Basophils # 0.1 K/mm3 (0-0.2); Basophils % 1.9 % (0.1-2.0); Chloride 98 mmol/L (98-107); Eosinophils # 0.7 K/mm3 (0.0-0.4); Eosinophils % 20.2 % (0.1-12.0); Hemoglobin 12.5 g/dL (14.1-18.0); Lymphocytes # 1.2 K/mm3 (0.7-4.5); Lymphocytes % 32.6 % (10-50); Mean Corpuscular HGB Conc 33.7 g/dL (31.8-35.4); Mean Corpuscular Hemoglobin 30.9 pg (27.0-31.2); Mean Corpuscular Volume 91.7 fl (80-94); Mean Platelet Volume 8.3 fl (7.4-10.4); Monocytes # 0.3 K/mm3 (0.1-1.0); Monocytes % 7.5 % (1.7-9.3); Neutrophils # 1.4 K/mm3 (1.8-7.8); Neutrophils % 37.7 % (37.0-80.0); Platelet Count 98 K/mm3 (142-424); Potassium 3.4 mmoL/L (3.5-5.1); Red Blood Count 4.03 M/mm3 (4.60-6.20); Sodium 135 mmol/L (136-145); White Blood Count 3.6 K/mm3 (4.8-10.8)
[2021-12-13 09:03] LABS: Blood Urea Nitrogen 23 mg/dl (9-20); Creatinine Clearance Estimated 97 mL/min (50-200); Estimated Glomerular Filt Rate 90 ml/min (>60); GFR (African American) 109 ML/MIN (>60)
[2021-12-13 09:04] LABS: Anion Gap 5.4 mEq/L (5-15); Calcium 8.6 mg/dl (8.4-10.2); Carbon Dioxide 35 mmol/L (22.0-30.0); Glucose 202 mg/dl (74-100)
--- NOTE | 2021-12-13 09:06 | HMH.ACPN2 ---
Internal Medicine - PN: Subj *Date: 12/13/21 *Time: 09:06 Interval history: pt sitting up on side of bed states doing well Exam Vital signs and Labs for Last 24 Hours: Temp Pulse Resp BP Pulse Ox 98.1 F 76 18 139/65 95 12/13/21 07:39 12/13/21 07:39 12/13/21 07:39 12/13/21 07:39 12/13/21 07:39 Laboratory Results - last 24 hr 12/13/21 08:37: WBC 3.6 L, RBC 4.03 L, Hgb 12.5 L, Hct 37.0 L, MCV 91.7, MCH 30.9, MCHC 33.7, RDW 17.0, Plt Count 98 L, MPV 8.3, Neut % (Auto) 37.7, Lymph % (Auto) 32.6, [place] % (Auto) 7.5, Eos % (Auto) 20.2 H, Baso % (Auto) 1.9, Neut # (Auto) 1.4 L, Lymph # (Auto) 1.2, [place] # (Auto) 0.3, Eos # (Auto) 0.7 H, Baso # (Auto) 0.1 12/13/21 08:37: Sodium 135 L, Potassium 3.4 L, Chloride 98, Carbon Dioxide 35 H, Anion Gap 5.4, BUN 23 H D, Creatinine 0.90, Estimated Creat Clear 97, Estimated GFR 90, Est GFR ( Amer) 109, Glucose 202 H, Calcium 8.6 I & O for Last 24 hours: Intake & Output 12/10/21 12/11/21 12/12/21 12/13/21 11:59 11:59 11:59 11:59 Intake Total 1200 / 1200 3241 / 3241 1260 / 1260 Output Total 4350 / 4350 3850 / 3850 1000 / 1000 Balance -3150 / -3150 -609 / -609 260 / 260 Weight 293 lb 6 oz 293 lb 9.6 oz 293 lb 9 oz 291 lb 11.2 oz Microbiology Reports for the Last 24 Hours: Microbiology 12/10/21 11:50 Leg,Left - Left Gram Stain - Final 12/10/21 11:50 Leg,Left - Left Wound Culture - Preliminary Pseudomonas aeruginosa Gram Negative Rods 12/10/21 13:45 Blood Blood Culture - Preliminary NO GROWTH AFTER 48 HOURS 12/10/21 13:45 Blood Blood Culture - Preliminary NO GROWTH AFTER 48 HOURS 12/10/21 11:50 Anus CRE Surveillance Culture - Final Negative - Constitutional no acute distress - *Routine HEENT Exam Head: Present: normocephalic Eye: Present: PERRL ENT: Present: mucous membranes moist - *Routine Neck Exam Present: supple. Absent: lymphadenopathy - *Routine Respiratory Exam Present: CTA bilaterally - *Routine Cardiovascular Exam Present: RRR - *Routine Abdominal Exam Present: soft, normoactive bowel sounds. Absent: tenderness - *Routine Extremities Exam Comments: dressing to left lower leg - *Routine Skin Exam Present: wounds Comments: dressing to left lower leg - *Routine Neurological Exam Present: alert, oriented X3 Assessment and Plan (1) Left leg cellulitis Status: Acute Category: Medical Code(s): L03.116 - Cellulitis of left lower limb (2) Leg wound, left Status: Acute Qualifiers: Encounter type: subsequent encounter Qualified Code(s): S81.802D - Unspecified open wound, left lower leg, subsequent encounter Category: Medical Code(s): S81.802A - Unspecified open wound, left lower leg, initial encounter (3) Non compliance with medical treatment Status: Acute Category: Medical Code(s): Z91.19 - Patient's noncompliance with other medical treatment and regimen (4) COPD (chronic obstructive pulmonary disease) Status: Chronic Qualifiers: COPD type: unspecified COPD Qualified Code(s): J44.9 - Chronic obstructive pulmonary disease, unspecified Category: Medical Code(s): J44.9 - Chronic obstructive pulmonary disease, unspecified (5) Chronic pain Status: Chronic Qualifiers: Chronic pain type: other chronic postprocedural pain Qualified Code(s): G89.28 - Other chronic postprocedural pain Category: Medical Code(s): G89.29 - Other chronic pain (6) Cirrhosis Status: Chronic Qualifiers: Hepatic cirrhosis type: other cirrhosis Qualified Code(s): K74.69 - Other cirrhosis of liver Category: Medical Code(s): K74.60 - Unspecified cirrhosis of liver (7) History of hypertension Status: Chronic Category: Medical Code(s): Z86.79 - Personal history of other diseases of the circulatory system
--- NOTE | 2021-12-13 09:18 | HMH.ACPN2 ---
Internal Medicine - PN: Subj *Date: 12/13/21 *Time: 09:18 Exam Vital signs and Labs for Last 24 Hours: Temp Pulse Resp BP Pulse Ox 98.1 F 76 18 139/65 95 12/13/21 07:39 12/13/21 07:39 12/13/21 07:39 12/13/21 07:39 12/13/21 07:39 Laboratory Results - last 24 hr 12/13/21 08:37: WBC 3.6 L, RBC 4.03 L, Hgb 12.5 L, Hct 37.0 L, MCV 91.7, MCH 30.9, MCHC 33.7, RDW 17.0, Plt Count 98 L, MPV 8.3, Neut % (Auto) 37.7, Lymph % (Auto) 32.6, [place] % (Auto) 7.5, Eos % (Auto) 20.2 H, Baso % (Auto) 1.9, Neut # (Auto) 1.4 L, Lymph # (Auto) 1.2, [place] # (Auto) 0.3, Eos # (Auto) 0.7 H, Baso # (Auto) 0.1 12/13/21 08:37: Sodium 135 L, Potassium 3.4 L, Chloride 98, Carbon Dioxide 35 H, Anion Gap 5.4, BUN 23 H D, Creatinine 0.90, Estimated Creat Clear 97, Estimated GFR 90, Est GFR ( Amer) 109, Glucose 202 H, Calcium 8.6 I & O for Last 24 hours: Intake & Output 12/10/21 12/11/21 12/12/21 12/13/21 23:59 23:59 23:59 23:59 Intake Total 480 / 840 3241 / 3241 1800 / 1800 180 / 180 Output Total 1700 / 2150 4450 / 4700 2049 / 2049 1000 / 1000 Balance -1220 / -1310 -1209 / -1459 -250 / -250 -820 / -820 Weight 133 kg 133.175 kg 133.158 kg 132.313 kg Microbiology Reports for the Last 24 Hours: Microbiology 12/10/21 11:50 Leg,Left - Left Gram Stain - Final 12/10/21 11:50 Leg,Left - Left Wound Culture - Preliminary Pseudomonas aeruginosa Gram Negative Rods 12/10/21 13:45 Blood Blood Culture - Preliminary NO GROWTH AFTER 48 HOURS 12/10/21 13:45 Blood Blood Culture - Preliminary NO GROWTH AFTER 48 HOURS 12/10/21 11:50 Anus CRE Surveillance Culture - Final Negative Assessment and Plan (1) Left leg cellulitis Status: Acute Category: Medical Code(s): L03.116 - Cellulitis of left lower limb (2) Leg wound, left Status: Acute Qualifiers: Encounter type: subsequent encounter Qualified Code(s): S81.802D - Unspecified open wound, left lower leg, subsequent encounter Category: Medical Code(s): S81.802A - Unspecified open wound, left lower leg, initial encounter (3) Non compliance with medical treatment Status: Acute Category: Medical Code(s): Z91.19 - Patient's noncompliance with other medical treatment and regimen (4) COPD (chronic obstructive pulmonary disease) Status: Chronic Qualifiers: COPD type: unspecified COPD Qualified Code(s): J44.9 - Chronic obstructive pulmonary disease, unspecified Category: Medical Code(s): J44.9 - Chronic obstructive pulmonary disease, unspecified (5) Chronic pain Status: Chronic Qualifiers: Chronic pain type: other chronic postprocedural pain Qualified Code(s): G89.28 - Other chronic postprocedural pain Category: Medical Code(s): G89.29 - Other chronic pain (6) Cirrhosis Status: Chronic Qualifiers: Hepatic cirrhosis type: other cirrhosis Qualified Code(s): K74.69 - Other cirrhosis of liver Category: Medical Code(s): K74.60 - Unspecified cirrhosis of liver (7) History of hypertension Status: Chronic Category: Medical Code(s): Z86.79 - Personal history of other diseases of the circulatory system (8) Left leg pain Status: Chronic Category: Medical Code(s): M79.605 - Pain in left leg (9) Obesity Status: Chronic Qualifiers: Obesity type: due to excess calories Obesity classification: adult class 3 (BMI >= 40) Serious obesity comorbidity presence: with serious comorbidity Body mass index: BMI 40.0-44.9 Qualified Code(s): E66.01 - Morbid (severe) obesity due to excess calories; Z68.41 - Body mass index [BMI] 40.0-44.9, adult Category: Medical Code(s): E66.9 - Obesity, unspecified (10) Uncontrolled pain Status: Chronic Category: Medical Code(s): R52 - Pain, unspecified (11) Venous ulcer of left leg Status: Chronic C
[2021-12-13 13:40] LABS: Ammonia 132 umol/L (9-30)
[2021-12-13 13:50] LABS: Alanine Aminotransferase 58 U/L (12-78); Albumin Level 2.6 g/dl (3.5-5.0); Alkaline Phosphatase 233 U/L (38-126); Aspartate Amino Transferase 97 U/L (17-59); Bilirubin,Direct 0.3 mg/dl (0.0-0.4); Bilirubin,Indirect 1.5 mg/dL (0.0-0.9); Bilirubin,Total 1.8 mg/dl (0.2-1.3); Bilirubin,Unconjugated 1.5 mg/dL (0.0-1.1); Total Protein,Serum 6.4 g/dl (6.3-8.2)
[2021-12-13 15:00] VITALS: BP 118/71; PULSE 69; RESP 18; TEMP 36.6; O2SAT 97
[2021-12-13 20:00] VITALS: BP 154/69; PULSE 74; RESP 16; TEMP 36.7; O2SAT 96
[2021-12-14 03:48] VITALS: BP 150/96; PULSE 77; RESP 18; TEMP 36.9; O2SAT 92
[2021-12-14 05:00] VITALS: BMI 43.4
[2021-12-14 06:30] LABS: Chloride 97 mmol/L (98-107)
[2021-12-14 06:31] LABS: Potassium 3.7 mmoL/L (3.5-5.1); Sodium 132 mmol/L (136-145)
[2021-12-14 06:34] LABS: Anion Gap 4.7 mEq/L (5-15); Blood Urea Nitrogen 29 mg/dl (9-20); Calcium 8.3 mg/dl (8.4-10.2); Carbon Dioxide 34 mmol/L (22.0-30.0); Creatinine Clearance Estimated 79 mL/min (50-200); Estimated Glomerular Filt Rate 71 ml/min (>60); GFR (African American) 86 ML/MIN (>60); Glucose 170 mg/dl (74-100)
[2021-12-14 06:35] LABS: Basophils # 0.1 K/mm3 (0-0.2); Basophils % 1.5 % (0.1-2.0); Eosinophils # 0.5 K/mm3 (0.0-0.4); Eosinophils % 14.8 % (0.1-12.0); Hemoglobin 11.7 g/dL (14.1-18.0); Lymphocytes # 1.2 K/mm3 (0.7-4.5); Lymphocytes % 34.8 % (10-50); Mean Corpuscular HGB Conc 33.4 g/dL (31.8-35.4); Mean Corpuscular Hemoglobin 30.5 pg (27.0-31.2); Mean Corpuscular Volume 91.5 fl (80-94); Mean Platelet Volume 8.6 fl (7.4-10.4); Monocytes # 0.3 K/mm3 (0.1-1.0); Monocytes % 9.5 % (1.7-9.3); Neutrophils # 1.3 K/mm3 (1.8-7.8); Neutrophils % 39.4 % (37.0-80.0); Platelet Count 98 K/mm3 (142-424); Red Blood Count 3.82 M/mm3 (4.60-6.20); Red Cell Distribution Width 16.9 % (11.5-17.5); White Blood Count 3.3 K/mm3 (4.8-10.8)
[2021-12-14 06:44] LABS: Ammonia 109 umol/L (9-30)
[2021-12-14 08:00] VITALS: BP 128/48; PULSE 75; RESP 18; TEMP 36.9; O2SAT 95
--- NOTE | 2021-12-14 09:33 | SW/DCPLANNER ---
The plan for this patient is to discharge home later today. I will fax patient information to [facility] at [facility] to resume home health services.
--- NOTE | 2021-12-14 10:17 | PC.NURSE ---
PT REFUSED TO TAKE LACTULOSE. HE WAS EDUCATED ON IMPORTANCE OF TAKING MEDICATION BUT STILL REFUSED.
--- NOTE | 2021-12-14 10:53 | HMH.DCSUM ---
General - General Admission date:: 12/10/21 Discharge date: 12/14/21 HPI HPI: Patient is a 46-year-old white male, well-known to the service, admitted from the office earlier today with cellulitis of the left lower extremity. This has been an ongoing issue for him, specifically 2 skin lesions on the left anterior calf which have been refractory to healing for quite some time. Patient has had multiple admissions for cellulitis, he gets some transient improvement with antibiotics but is known to be noncompliant. He currently has home health services who are assisting with wound care, but he cannot relay specifics of regimen for wound care, dressing type, etc. Patient does not have a history of diabetes Patient relays subjective fever and chills but has not formally measured his temperature. No recent trauma There are 2 distinct ulcerations on the anterior calf that are moving in the direction of becoming confluent. There is dry eschar at each wound, there is redness around each wound extending proximally up the leg. There are clinical concerns of osteomyelitis in the tibia. Patient has a history of chronic liver disease, is status post TIPS procedure. He is on a regimen of Xifaxan and lactulose, compliance is questionable. He is neurologically at his baseline, no suggestion of confusion or elevated ammonia level. I have not known him to be encephalopathic. Hospital Course Hospital Course: During his stay he received Zyvox and meropenem for his left lower extremity cellulitis. He reports not taking his lactulose correctly at home with his ammonia level on discharge was 109 down from 132. Again discussed purpose of lactulose and need to take per instruction. Long discussion with patient on better food options/portions, smoking cessation, and medical regimen adherence. As well as need to make all appointments. Leg wound, left, Left leg cellulitis Home health visits for dressing changes arranged. Discussed with patient importance of being available for all visits and completion of care. Patient informed that this wound will take several months to heal. Wound culture results klebsiella oxytoca and Pseudomonas aeruginosa. He will be discharged on Zyvox and levofloxacin by mouth for 9 days. Blood cultures have been negative at 5 days, CRE negative MRI revealed soft tissue edema in the calf which is probably infection/cellulitis, no deep organized abscess, no osteomyelitis or septic arthritis Non compliance with medical treatment Importance of home health care for wound changes, making all appointments, and adhering to medical regimen stressed to patient. He verbalizes understanding and states he will comply with medical instructions COPD (chronic obstructive pulmonary disease) He reports he has stopped smoking 3 months ago, encouragement provided, and he has his inhalers which he uses per instruction at home. Chronic pain He has gabapentin at home for chronic pain and informed we will discuss pain at each appointment Cirrhosis He is on Xifaxan and lactulose at home. Regimen discussed and importance of taking medications for instruction stressed, he reports he was confused on schedule and is aware now History of hypertension It would be discharged on his antihypertensive medications and reports he has been with home. His blood pressure has been within normal during his stay Obesity Long discussion with patient regarding better food options/portions, regular eating times, decreased soda increase water, and better food substitutions per dietitian and primary care Venous ulcer of left leg He will be contacted by [facility] vascular surgery for appointment, importance stressed to patient of making appointment Ortho has seen and recommends: I have discussed the clinical findings and diagnostic imaging with the patient. The MRI scan does not show any involvement of the bone. Given the MRI findings, I am
--- NOTE | 2021-12-14 12:59 | HMH.PHAINT ---
DISCHARGE MEDICATION COUNSELING PROVIDED. DISCUSSED SHORT COURSE ZYVOX AND LEVAQUIN. PATIENT STATED HE'S BEEN ON LEVAQUIN BEFORE. COUNSELED TO TAKE BOTH WITH FOOD, LEVAQUIN DAILY AND ZYVOX TWICE DAILY. PATIENT ENDORSED NO QUESTIONS AT THIS TIME.
--- NOTE | 2021-12-14 13:55 | PC.NURSE ---
Spoke with scheduling department at Vascular, they will be contacting patient with f/u appt.
== END 2021-12-14 14:46 | disposition home health service (06) | DRG 300 ==
PROVIDERS: Emergency Medicine; Nurse Practitioner Family; Admitting Provider Family Medicine; PCP Family Medicine; Visit Provider Family Medicine
DX: I83.022 Varicose veins of left lower extremity with ulcer of calf (principal); L03.116 Cellulitis of left lower limb; Z68.41 Body mass index [BMI] 40.0-44.9, adult; L97.229 Non-pressure chronic ulcer of left calf with unspecified severity; M86.9 Osteomyelitis, unspecified; I50.9 Heart failure, unspecified; J44.9 Chronic obstructive pulmonary disease, unspecified; E78.5 Hyperlipidemia, unspecified; I73.9 Peripheral vascular disease, unspecified; E03.9 Hypothyroidism, unspecified; Z87.891 Personal history of nicotine dependence; Z91.19 Patient's noncompliance with other medical treatment and regimen; K74.69 Other cirrhosis of liver; I11.0 Hypertensive heart disease with heart failure; E66.9 Obesity, unspecified; I87.8 Other specified disorders of veins; G89.29 Other chronic pain; A49.8 Other bacterial infections of unspecified site
CPT/HCPCS: 36415; 71045; 73590; 73720; 80048; 80053; 80076; 82140; 85025; 87040; 87070; 87077; 87081; 87186; 87205; A9576; C9803; G0378; J2020; J2185; U0003; U0005

== ENCOUNTER → 2021-12-21 16:00 | Outpatient (CLI) | payer MEDICARE, SELFPAY | PROVIDERS: Visit Provider Family Medicine | DX: E11.9 Type 2 diabetes mellitus without complications (principal) | CPT/HCPCS: 83036 ==

== ENCOUNTER 2022-01-28 12:30 | Inpatient (IN) | payer MEDICARE, OTHER, SELFPAY ==
[2022-01-28] VITALS (11 sets, daily range): BP systolic 143–205; BP diastolic 86–129; PULSE 58–90; RESP 18–22; TEMP 36.7–37; O2SAT 99–100; BMI 44.5; BMI 41.1
--- NOTE | 2022-01-28 12:44 | PC.NURSE ---
Dr Stanton called advising pt probably just needs some fluids and to check an ammonia level.
--- NOTE | 2022-01-28 12:46 | HMH.EDGENADL ---
ED Disposition Clinical Impression: Hepatic encephalopathy, Elevated troponin, Hypokalemia Chest pain Qualifiers: Chest pain type: unspecified Qualified Code(s): R07.9 - Chest pain, unspecified Community acquired pneumonia Qualifiers: Laterality: unspecified laterality Qualified Code(s): J18.9 - Pneumonia, unspecified organism Diarrhea Qualifiers: Diarrhea type: unspecified type Qualified Code(s): R19.7 - Diarrhea, unspecified Skin ulcer of lower leg Qualifiers: Laterality: left Non-pressure ulcer stage: with fat layer exposed Qualified Code(s): L97.922 - Non-pressure chronic ulcer of unspecified part of left lower leg with fat layer exposed Disposition: Admitted as Observation Condition on Discharge: Fair Referrals: Carlos Stanton MD [Primary Care Provider] - - Critical Care Critical Care Time: No Attestation: On 01/28/22, the high probability of a clinically significant, sudden or life threatening deterioration of the following system(s) required my full and direct attention, intervention and personal management. The time I documented below is in addition to time spent performing reported procedures but includes the following listed in this critical care notation. Medical Decision Making - Joshua Inquiry Pt receiving controlled substance: No Vital Signs: 01/28/22 12:38 01/28/22 13:30 01/28/22 14:30 Temperature 98.4 F Temperature Source Oral Pulse Rate 89 78 Pulse Rate [Brachial] 90 Respiratory Rate 22 Blood Pressure 172/96 H 156/94 H Blood Pressure [Right Arm] 167/100 H Blood Pressure Mean 125 138 Blood Pressure Mean [Right Arm] 122 02 Sat by Pulse Oximetry 99 100 100 Oxygen Delivery Method Room Air 01/28/22 14:37 01/28/22 15:00 Temperature Temperature Source Pulse Rate 75 79 Pulse Rate [Brachial] Respiratory Rate Blood Pressure 156/94 H 179/106 H Blood Pressure [Right Arm] Blood Pressure Mean 114 124 Blood Pressure Mean [Right Arm] 02 Sat by Pulse Oximetry 100 100 Oxygen Delivery Method - Lab Data Lab Results 01/28/22 12:55: WBC 4.2 L, RBC 4.23 L, Hgb 13.0 L, Hct 39.6 L, MCV 93.7, MCH 30.8, MCHC 32.8, RDW 19.2 H, Plt Count 100 L, MPV 9.8, Neut % (Auto) 56.7, Lymph % (Auto) 24.6, [place] % (Auto) 6.7, Eos % (Auto) 9.7, Baso % (Auto) 2.3 H, Neut # (Auto) 2.4, Lymph # (Auto) 1.0, [place] # (Auto) 0.3, Eos # (Auto) 0.4, Baso # (Auto) 0.1 01/28/22 12:55: Sodium 137, Potassium 3.1 L, Chloride 105, Carbon Dioxide 32 H, Anion Gap 3.1 L, BUN 8 L, Creatinine 0.60 L, Estimated Creat Clear 146, Estimated GFR 144, Est GFR ( Amer) 174, Glucose 118 H, Calcium 8.5, Total Bilirubin 1.9 H, AST 90 H, ALT 61, Alkaline Phosphatase 266 H, Troponin I 0.05 H, Total Protein 7.0, Albumin 3.0 L, Globulin 4.0 H, Albumin/Globulin Ratio 0.8 L 01/28/22 12:55: Ammonia 149 H 01/28/22 12:55: Lipase 41 01/28/22 13:39: Urine Color Yellow, Urine Appearance Clear, Urine pH 6.5, Ur Specific [place] 1.010, Urine Protein Negative, Urine Glucose (UA) Negative, Urine Ketones Negative, Urine Blood Negative, Urine Nitrate Negative, Urine Bilirubin Negative, Urine Urobilinogen 4.0, Ur Leukocyte Esterase Negative, Urine RBC None, Urine WBC None, Ur Squamous Epith Cells Occasional, Calcium Oxalate Crystal 1+, Urine Bacteria Trace 01/28/22 14:34: SARS-CoV-2 (PCR) Not detected, Influenza A Untype (PCR) Not detected, Influenza Type B (PCR) Not detected 01/28/22 15:05: Lactate 1.2 Result diagrams: 01/28/22 12:55 01/28/22 12:55 Orders (Tests/Meds): ED MEDICATIONS Generic Name Dose Route Start Last Admin Trade Name Freq PRN Reason Stop Dose Admin Ceftriaxone Sodium 1 gm/ 50 mls @ 100 mls/hr 01/28/22 14:45 01/28/22 15:10 Sodium Chloride IV 02/11/22 14:44 100 mls/hr Q24H CJ Administration Azithromycin 500 mg/ Sodium 250 mls @ 250 mls/hr 01/28/22 14:45 01/28/22 15:22 Chloride IV 02/11/22 14:44 250 mls/hr Q24H CJ Administration Lactulose 20 gm 01/28/22 17:00 01/28/22 15:34
--- NOTE | 2022-01-28 12:46 | XR_ITS ---
FINAL REPORT CLINICAL HISTORY: WEAKNESS FINDINGS: The heart is normal in size. The mediastinum is unremarkable. There is a right lower lobe opacity. There is no pneumothorax. The osseous structures are unremarkable. IMPRESSION: Opacity as above likely secondary to pneumonia. Follow-up to complete resolution recommended. Authenticated and ERN
--- NOTE | 2022-01-28 12:57 | ECG_ITS ---
APPROVED REPORT Exam: Resting ECG HR:84 bpm ECG Measurements Heart Rate 84 AXES MT 156 P 0 QRSd 113 QRS 10 QT 432 T 63 QTc 473 Conclusion SINUS RHYTHM WITH OCCASIONAL VENTRICULAR PREMATURE COMPLEXES POSSIBLE LATERAL MYOCARDIAL INFARCTION , OF INDETERMINATE AGE [30 ms Q WAVE IN I/aVL/V5/V6] ABNORMAL ECG UNCONFIRMED REPORT Electronically signed by : Wilfredo Muñoz MD 01/28/2022 15:32:55
--- NOTE | 2022-01-28 13:01 | PC.NURSE ---
PT TO RADIOLOGY AT THIS TIME PER WHEELCHAIR
--- NOTE | 2022-01-28 13:05 | PC.NURSE ---
Attempted IV x 2 unsuccessful. Shahab at bedside
--- NOTE | 2022-01-28 13:05 | CT_ITS ---
FINAL REPORT TECHNIQUE: Axial images through the abdomen and pelvis were performed without contrast. This study was performed with techniques to keep radiation doses as low as reasonably achievable, (ALARA). Individualized dose reduction techniques using automated exposure control or adjustment of mA and/or kV according to the patient's size were employed. CLINICAL HISTORY: abdo pain, pt states he has been experiencing persistent diarrhea for the last 4 days and has had a loss of appetite. FINDINGS: Abdomen: Bibasilar interstitial changes and atelectasis are noted. The liver is severely diminutive and lobulated. 2 TIPS shunts are noted. The spleen is enlarged measuring approximately 16 cm. There is no hydronephrosis or nephrolithiasis. Varices are noted. There is no significant ascites. The gallbladder is unremarkable. Pelvis: The appendix is normal. There is trace ascites and mesenteric edema. The urinary bladder is unremarkable. No free fluid or adenopathy. IMPRESSION: Cirrhosis and splenomegaly without significant ascites. Authenticated and ERN
[2022-01-28 13:07] LABS: Basophils # 0.1 K/mm3 (0-0.2); Basophils % 2.3 % (0.1-2.0); Eosinophils # 0.4 K/mm3 (0.0-0.4); Eosinophils % 9.7 % (0.1-12.0); Hematocrit 39.6 % (42.0-52.0); Lymphocytes % 24.6 % (10-50); Mean Corpuscular HGB Conc 32.8 g/dL (31.8-35.4); Mean Corpuscular Hemoglobin 30.8 pg (27.0-31.2); Mean Corpuscular Volume 93.7 fl (80-94); Mean Platelet Volume 9.8 fl (7.4-10.4); Monocytes # 0.3 K/mm3 (0.1-1.0); Monocytes % 6.7 % (1.7-9.3); Neutrophils # 2.4 K/mm3 (1.8-7.8); Neutrophils % 56.7 % (37.0-80.0); Platelet Count 100 K/mm3 (142-424); Red Blood Count 4.23 M/mm3 (4.60-6.20); Red Cell Distribution Width 19.2 % (11.5-17.5); White Blood Count 4.2 K/mm3 (4.8-10.8)
[2022-01-28 13:12] LABS: Chloride 105 mmol/L (98-107); Potassium 3.1 mmoL/L (3.5-5.1); Sodium 137 mmol/L (136-145)
[2022-01-28 13:15] LABS: Alanine Aminotransferase 61 U/L (12-78); Albumin/Globulin Ratio 0.8 (1.1-1.8); Alkaline Phosphatase 266 U/L (38-126); Ammonia 149 umol/L (9-30); Anion Gap 3.1 mEq/L (5-15); Aspartate Amino Transferase 90 U/L (17-59); Bilirubin,Total 1.9 mg/dl (0.2-1.3); Blood Urea Nitrogen 8 mg/dl (9-20); Carbon Dioxide 32 mmol/L (22.0-30.0); Creatinine Clearance Estimated 146 mL/min (50-200); Estimated Glomerular Filt Rate 144 ml/min (>60); GFR (African American) 174 ML/MIN (>60)
[2022-01-28 13:16] LABS: Calcium 8.5 mg/dl (8.4-10.2); Glucose 118 mg/dl (74-100)
[2022-01-28 13:21] LABS: Lipase 41 U/L (23-300)
[2022-01-28 13:27] LABS: Troponin I 0.05 ng/ml (0.00-0.034)
--- NOTE | 2022-01-28 13:28 | INFXCTL.NOTE ---
PT RETURNED FROM RADIOLOGY
--- NOTE | 2022-01-28 13:28 | PC.NURSE ---
PT RETURNED FROM RADIOLOGY
[2022-01-28 13:42] LABS: Microscopic, Urine URINE MICROSCOPIC (MICROSCOPIC)
[2022-01-28 13:44] LABS: Appearance,Urine CLEAR (Clear); Bilirubin,Urine Negative (Negative); Blood, Urine Negative (Negative); Color,Urine YELLOW (Yellow); Glucose,Urine (UA) Negative (Negative); Ketones,Urine Negative (Negative); Leukocyte Esterase,Urine Negative (Negative); Nitrate,Urine Negative (Negative); PH,Urine 6.5 (5.0-8.5); Protein,Urine Negative (Negative)
[2022-01-28 13:56] LABS: Bacteria,Urine Trace /lpf; Calcium Oxalate Crystals,Urine 1+ /lpf; Squamous Epithelial Cell,Urine Occasional #/hpf (0-5)
--- NOTE | 2022-01-28 14:37 | PC.NURSE ---
Called DR. Stanton office, they advised he was in a room at the moment but they would have him call us back. Notified
--- NOTE | 2022-01-28 14:38 | PC.NURSE ---
Pt given blanket
[2022-01-28 14:39] LABS: Coronavirus 19, PCR Not Detected (NotDetected); Influenza A, PCR Not Detected (NotDetected); Influenza B, PCR Not Detected (NotDetected)
--- NOTE | 2022-01-28 14:41 | PC.NURSE ---
Notified lab that we needed BC and lactic
[2022-01-28 15:22] LABS: Lactic Acid 1.2 mmol/L (0.7-2.1)
--- NOTE | 2022-01-28 15:30 | PC.NURSE ---
speaking with Dr. Stanton
--- NOTE | 2022-01-28 15:32 | CA_ITS ---
APPROVED REPORT EXAM: Comprehensive 2D, Doppler, and color-flow Echocardiogram Departmental Buyer: Jaclyn Vaughn CRT Ht: 5 ft 8 in Wt: 293lbs BSA: 2.40 BP: 179/106 mmHg Indications: Congestive Heart Failure, COPD, Shortness of Breath, Obesity, Peripheral Edema, Hyperlipidemia, Hypertension/HDD 2D Dimensions LVOT 2.06 cm (M/F) 1.5-2.5 LA Volume 49.70 mL LA Volume Index 20.70 mL/m2 (M/F) 16-34 M-Mode Dimensions RVDd 2.86 cm (0.9-2.6) LA Diam 5.52 cm (1.9-4.0) LVDd 5.63 cm (3.5-5.7) Ao Diam 4.04 cm (2.0-3.7) LVDs 4.43 cm (3.5-5.7) IVSd 1.83 cm (0.6-1.1) PWd 0.89 cm (0.6-1.1) EF (Teich) 42.70% FS 21.30% EDV (Teich) 155.60 mL TAPSE 2.54 (<1.7) ESV (Teich) 89.10 mL LV Diastology MED E' 8.10 (< 7 cm/sec) MED A' 11.00 cm/s LAT E' 10.60 (<10 cm/sec) LAT A' 8.30 cm/s Aortic Valve AO Peak GR. 7.00 mmHg Pulmonary Valve PV Peak Velocity 104.00 (50-150 cm/s) Tricuspid Valve TR P. Velocity 101.00 cm/s RAP Estimate 10.00 mmHg RVSP 14.10 mmHg Left Ventricle Technically difficult study because of the patient factors and poor acoustic windows. Left atrium is mildly Left ventricle is normal size mild concentric left ventricular hypertrophy, estimated ejection fraction 50% with no regional wall motion abnormality in the obtained views. Diastolic parameters are inconclusive. Right Ventricle Right atrium and right ventricle are mildly enlarged with normal contractility. Aortic Valve Aortic valve is minimally thickened and calcified without aortic stenosis or aortic insufficiency. Mitral Valve Mitral valve is grossly normal, there is trace mitral regurgitation. Tricuspid Valve Tricuspid grossly normal, there is trace tricuspid regurgitation, tricuspid regurgitation jet velocity is inadequate for calculation of the right ventricular systolic pressure. Pulmonic Valve Pulmonic valve is poorly visualized. Great Vessels Aortic root is normal size. Inferior vena cava is poorly visualized. Pericardium No significant pericardial effusion noted. Conclusion 1. Mild biatrial enlargement, normal left ventricular size, mild concentric left ventricular hypertrophy, estimated ejection fraction 50% with no regional wall motion abnormality, endocardial surfaces are very poorly visualized, technically difficult study because of the patient factors and poor acoustic windows. 2. Mildly enlarged right ventricle with normal contractility. 3. Trace mitral and tricuspid regurgitation. 4. No significant pericardial effusion. 5. Inferior vena cava is poorly visualized. Electronically signed by : Iraj Ortiz MD 01/30/2022 16:10:15
--- NOTE | 2022-01-28 15:35 | PC.NURSE ---
Spoke with Yunier Hunter and let him know Dr. Stanton requested a cardiology consult
--- NOTE | 2022-01-28 15:36 | PC.NURSE ---
PT RESTING COMFORTABLY, NO NEEDS AT THIS TIME
--- NOTE | 2022-01-28 15:43 | PC.NURSE ---
Notified care management of admission
--- NOTE | 2022-01-28 15:52 | PC.NURSE ---
Yunier Hunter at bedside
--- NOTE | 2022-01-28 15:55 | PC.NURSE ---
Tam WASHINGTON PA-C WITH CARDIOLOGY AT BEDSIDE
--- NOTE | 2022-01-28 16:05 | PC.NURSE ---
DIETARY CALLED FOR MEAL TRAY
--- NOTE | 2022-01-28 16:05 | PC.NURSE ---
vascular here for echo
--- NOTE | 2022-01-28 16:06 | PC.NURSE ---
ECHO AT BEDSIDE
--- NOTE | 2022-01-28 16:09 | PC.NURSE ---
MEAL TRAY PROVIDED
--- NOTE | 2022-01-28 16:24 | HMH.CNCARD ---
History of Present Illness Consult date: 01/28/22 Requesting physician: Carlos Stanton Chief complaint: elevated troponin, hepatic encephalopathy Additional Medical History:: 1. Normal coronary arteries by cardiac catheterization 07/2021 2. Normal EF with intra-atrial flow noted on echo, 07/2021 3. Nonalcoholic cirrhosis of the liver A. Hepatic encephalopathy with ammonia level 149, 01/28/2022 4. Hypertension 5. Hyperlipidemia 6. Lower extremity ulcers related to venous stasis 7. History of COPD A. Former smoker 8. History of seizures 9. Pancytopenia 10. He has a history of methamphetamine use History of present illness: Patient dropped off by Dr. Stanton from his office. Patient presented there c/o weakness, brain fog, feeling dizzy, diarrhea, X4 days. Dr. Stanton requests IV fluids, ammonia level in addition to any other indicated work-up Patient states that he has a 4-day history of diarrhea, dizziness, sleeping a lot. Intermittent severe abdominal pains across his upper abdomen, particularly left side. No current pain. Feels feverish, face feels hot, but temperature not taken. No blood noted in diarrhea. Says that the first day of his illness he had some burning with urination, but none since then. No chest pain or shortness of breath. He has chronic ulcers on his left leg that has been present for couple of years. Dr. Stanton has been treating. Says that he has an appointment with a surgeon in [place]. The above per Dr. Benedict Patient with known normal coronaries in 08/02/2021 without complaint of chest pain but noted to have elevated troponin on work-up in the ER. Elevated troponin likely related to hepatic issues but will obtain echocardiogram to confirm normal ejection fraction. [facility] History Medical History: Reports:: Congestive Heart Failure, Chronic Obstructive Pulmonary Disease (COPD), Hyperlipidemia, Hypertension, Peripheral Vascular Disease, Seizures, Valvular Heart Disease Denies:: Cancer, Diabetes Mellitus Type 1, Diabetes Mellitus Type 2, MRSA *Have you ever received a pneumonia vaccine?: No *Have you received a flu vaccine this season?: No Other Medical History: Reports: Anemia, Arthritis, Hypothyroidism, Liver Disease. Denies: Blood Transfusion Reaction Laterality Cases: Bilateral: Tonsillectomy, Other Other Surgeries: Yes: Ureter Stent, Other Amputation: No Fractures: Yes - *Social History Smoking Status: Former smoker Tobacco Type: smokeless tobacco # Packs/Day (cigarettes): 1 Alcohol Intake: never Substance Use Type: methamphetamine *Occupational Status:: disabled Housing: house Household Members: none *Travel in the last 8 weeks: Inside the [place] Family Hx:: No significant family history Meds Home Medications Medication Instructions Recorded Confirmed Type Rifaximin [Xifaxan 550mg Tablet] 550 mg PO BID 05/01/21 01/28/22 History Metoprolol Succinate [Toprol XL 25 mg PO DAILY 11/16/21 01/28/22 History 25mg tablet] Potassium Chloride 20 meq PO DAILY 11/16/21 01/28/22 History Torsemide [Demadex] 20 mg PO DIRECTED 11/16/21 01/28/22 History Albuterol Sulfate [Proventil Hfa] 2 puff IH QIDP PRN 11/17/21 01/28/22 History Fluticasone/Umeclidin/Vilanter 1 puff IH DAILY 11/17/21 01/28/22 History [Trelegy Ellipta 200-62.5-25] Lisinopril/Hydrochlorothiazide 1 tab PO DAILY 11/17/21 01/28/22 History [Lisinopril-Hctz 10-12.5 mg Tab] Ibuprofen [Ibuprofen 800mg 800 mg PO TIDP PRN 12/11/21 01/28/22 History Tablet] hydrocodone 5 mg-acetaminophen 325 1 tab PO DAILY PRN #7 tab 01/04/22 01/28/22 Rx mg tablet Gabapentin 600 mg PO TID 01/28/22 01/28/22 History Allergies Allergy/AdvReac Type Severity Reaction Status Date / Time codeine Allergy Severe Anaphylaxis Verified 01/28/22 10:54 guaifenesin [From Mucinex] Allergy Severe SWELLS Verified 01/28/22 10:54 ketorolac [From Toradol] Allergy Severe Difficulty Verified 01/28/22 10:54 Swallowing Exam Vital signs
[2022-01-28 16:51] LABS: Troponin I 0.04 ng/ml (0.00-0.034)
--- NOTE | 2022-01-28 16:55 | PC.NURSE ---
pt ambulated to bathroom independently
[2022-01-28 17:05] LABS: Adenovirus F 40/41, stool Not Detected (NotDetected); Astrovirus Not Detected (NotDetected); Campylobacter Not Detected (NotDetected); Cryptosporidium Not Detected (NotDetected); Cyclospora Cayetanesis Not Detected (NotDetected); Entamoeba histolytica Not Detected (NotDetected); Enteroaggregative E coli Not Detected (NotDetected); Enteropathogenic E coli Not Detected (NotDetected); Enterotoxigenic E coli Not Detected (NotDetected); Giardia lamblia Not Detected (NotDetected); Norovirus Not Detected (NotDetected); Plesimonas Shigalloides, PCR Not Detected (NotDetected); Salmonella, PCR Not Detected (NotDetected); Sapovirus Not Detected (NotDetected); Shiga-like toxin E coli Not Detected (NotDetected); Shigella Enterovasive E coli Not Detected (NotDetected); Vibrio Cholerae Not Detected (NotDetected); Vibrio, PCR Not Detected (NotDetected); Yersinia Entercolitica, PCR Not Detected (NotDetected)
--- NOTE | 2022-01-28 17:12 | PC.NURSE ---
REPORT GIVEN TO Carline CANDELARIA RN AT THIS TIME
--- NOTE | 2022-01-28 17:40 | HMH.PHAVTE ---
[facility] Pharm[facility] VTE Monitoring - Patient Demographics Admission date: 01/28/22 Report Date: 01/28/22 Time: 17:40 Allergies/Adverse Reactions: Patient Allergies codeine Allergy (Severe, Verified 01/28/22 10:54) Anaphylaxis guaifenesin [From Mucinex] Allergy (Severe, Verified 01/28/22 10:54) SWELLS ketorolac [From Toradol] Allergy (Severe, Verified 01/28/22 10:54) Difficulty Swallowing Height: 1.75 m Weight: 126.24 kg Patient Problems: Current Active Problems Chest pain (Acute) Elevated troponin (Acute) Community acquired pneumonia (Acute) Diarrhea (Acute) Skin ulcer of lower leg (Acute) Hypokalemia (Acute) Hepatic encephalopathy (Acute) Venous stasis ulcers (Acute) COPD (chronic obstructive pulmonary disease) (Chronic) Cirrhosis (Chronic) Hypertension (Chronic) - VTE Risk Labs: VTE Related Lab Results Hgb 13.0 g/dL (14.1-18.0) L 01/28/22 12:55 Hct 39.6 % (42.0-52.0) L 01/28/22 12:55 Plt Count 100 K/mm3 (142-424) L 01/28/22 12:55 BUN 8 mg/dl (9-20) L 01/28/22 12:55 Creatinine 0.60 mg/dl (0.66-1.25) L 01/28/22 12:55 Estimated Creat Clear 146 mL/min (50-200) 01/28/22 12:55 Clinical Trial Participant: No - Prophylaxis VTE Prophylaxis Ordered?: Yes Types of VTE Prophylaxis: TEDS Knee High
--- NOTE | 2022-01-28 17:41 | HMH.HP ---
*Admission Date: 01/28/22 *Chief complaint: pneumonia and hepatic encephalopathy *History of present illness: Patient is a 46-year-old white male, well-known to our practice, who presented to the office earlier today with complaints. Patient has had copious diarrhea for the last 4 days, feels volume depleted, feels markedly weakened, and relayed that he felt like he was slowly dying. He was sent the office to the emergency room for further evaluation. Patient relayed a sensation of a brain fog. He has underlying cirrhosis, is status post a TIPS procedure and has been less than compliant with his regimen. His ammonia was elevated in the ER. Patient's chest x-ray revealed an infiltrative process in the right lower lobe. Patient has chronic ulcers in the left leg, 2 in the anterior calf in the setting of chronic venous stasis. These ulcers are longstanding, nonhealing, patient has been noncompliant with wound care. I have concerns that over time the 2 individual lesions will coalesce into a single lesion. Patient had been evaluated for osteomyelitis previously. The skin around the ulcer is is red and warm but not ascending. Patient also had a CT of his abdomen which showed cirrhosis but no ascites. Patient also had an elevated troponin, EKG showed no ischemic changes. He had no complaints of chest pain while in the office. He is admitted for further evaluation and treatment. His ammonia level is 149. [facility] History Medical History: Reports:: Congestive Heart Failure, Chronic Obstructive Pulmonary Disease (COPD), Hyperlipidemia, Hypertension, Peripheral Vascular Disease, Seizures, Valvular Heart Disease Denies:: Cancer, Diabetes Mellitus Type 1, Diabetes Mellitus Type 2, MRSA *Have you ever received a pneumonia vaccine?: No *Have you received a flu vaccine this season?: No Other Medical History: Reports: Anemia, Arthritis, Hypothyroidism, Liver Disease. Denies: Blood Transfusion Reaction Laterality Cases: Bilateral: Tonsillectomy, Other Other Surgeries: Yes: Ureter Stent, Other Amputation: No Fractures: Yes - *Social History Smoking Status: Former smoker Tobacco Type: smokeless tobacco # Packs/Day (cigarettes): 1 Alcohol Intake: never Substance Use Type: methamphetamine *Occupational Status:: disabled Housing: house Household Members: none *Travel in the last 8 weeks: Inside the [place] Family Hx:: No significant family history Review of Systems - Constitutional Reports lack of energy - Eyes Denies change in vision - ENT Denies abnormal hearing - *Cardiovascular Denies chest pain - *Respiratory Reports chest congestion, Reports cough - *Gastrointestinal Denies abdominal pain - *Genitourinary Denies difficulty urinating - *Musculoskeletal Reports muscle weakness - Integumentary/Breasts Reports lesions, Denies yellowing of the skin - *Neurologic Reports behavioral changes, Reports confusion, Reports unsteadiness (We will), Reports dizziness, Reports weakness, Denies abnormal speech - Psychiatric Reports lack of enjoyment - Endocrine Denies increased urination - Hematologic/Lymphatic Denies easy bleeding, Denies easy bruising - Allergic/Immunologic Denies hives Meds Home Medications Medication Instructions Recorded Confirmed Type Metoprolol Succinate [Toprol XL 25 mg PO DAILY 11/16/21 01/28/22 History 25mg tablet] Potassium Chloride 20 meq PO DAILY 11/16/21 01/28/22 History Torsemide [Demadex] 20 mg PO DIRECTED 11/16/21 01/28/22 History Albuterol Sulfate [Proventil Hfa] 2 puff IH QIDP PRN 11/17/21 01/28/22 History Lisinopril/Hydrochlorothiazide 1 tab PO DAILY 11/17/21 01/28/22 History [Lisinopril-Hctz 10-12.5 mg Tab] Ibuprofen [Ibuprofen 800mg 800 mg PO TIDP PRN 12/11/21 01/28/22 History Tablet] Gabapentin 600 mg PO TID 01/28/22 01/28/22 History Allergies Allergy/AdvReac Type Severity Reaction Status Date / Time codeine Allergy Severe Anaphylaxis Brice
[2022-01-28 19:12] LABS: Clostridium Difficile A/B, PCR Detected (NotDetected); Rotavirus A Detected (NotDetected)
[2022-01-28 19:25] LABS: Troponin I 0.03 ng/ml (0.00-0.034)
--- NOTE | 2022-01-28 20:53 | PC.NURSE ---
spoke with night watch about no po vanc in house, night watch to order vanc doses to start in am from main pharmacy as none is available to start tonight
[2022-01-29] VITALS (8 sets, daily range): BP systolic 134–165; BP diastolic 78–97; PULSE 81–110; RESP 17–18; TEMP 36.3–37.1; O2SAT 91–99; BMI 41.2
[2022-01-29 07:50] LABS: Ammonia 94 umol/L (9-30)
--- NOTE | 2022-01-29 10:44 | HMH.ACPN2 ---
Internal Medicine - PN: Subj *Date: 01/29/22 *Time: 10:44 Interval history: more alert this am - labs pending Exam Vital signs and Labs for Last 24 Hours: Temp Pulse Resp BP Pulse Ox 98.1 F 95 H 18 148/97 H 98 01/29/22 08:00 01/29/22 08:00 01/29/22 08:00 01/29/22 08:00 01/29/22 08:00 Laboratory Results - last 24 hr 01/28/22 12:55: WBC 4.2 L, RBC 4.23 L, Hgb 13.0 L, Hct 39.6 L, MCV 93.7, MCH 30.8, MCHC 32.8, RDW 19.2 H, Plt Count 100 L, MPV 9.8, Neut % (Auto) 56.7, Lymph % (Auto) 24.6, [place] % (Auto) 6.7, Eos % (Auto) 9.7, Baso % (Auto) 2.3 H, Neut # (Auto) 2.4, Lymph # (Auto) 1.0, [place] # (Auto) 0.3, Eos # (Auto) 0.4, Baso # (Auto) 0.1 01/28/22 12:55: Sodium 137, Potassium 3.1 L, Chloride 105, Carbon Dioxide 32 H, Anion Gap 3.1 L, BUN 8 L, Creatinine 0.60 L, Estimated Creat Clear 146, Estimated GFR 144, Est GFR ( Amer) 174, Glucose 118 H, Calcium 8.5, Total Bilirubin 1.9 H, AST 90 H, ALT 61, Alkaline Phosphatase 266 H, Troponin I 0.05 H, Total Protein 7.0, Albumin 3.0 L, Globulin 4.0 H, Albumin/Globulin Ratio 0.8 L 01/28/22 12:55: Ammonia 149 H 01/28/22 12:55: Lipase 41 01/28/22 13:39: Urine Color Yellow, Urine Appearance Clear, Urine pH 6.5, Ur Specific [place] 1.010, Urine Protein Negative, Urine Glucose (UA) Negative, Urine Ketones Negative, Urine Blood Negative, Urine Nitrate Negative, Urine Bilirubin Negative, Urine Urobilinogen 4.0, Ur Leukocyte Esterase Negative, Urine RBC None, Urine WBC None, Ur Squamous Epith Cells Occasional, Calcium Oxalate Crystal 1+, Urine Bacteria Trace 01/28/22 14:34: SARS-CoV-2 (PCR) Not detected, Influenza A Untype (PCR) Not detected, Influenza Type B (PCR) Not detected 01/28/22 15:05: Lactate 1.2 01/28/22 16:21: Troponin I 0.04 H 01/28/22 17:00: Stl Aeromonas (PCR) Not detected, Stl C. cayetanensis PCR Not detected, Stool Rotavirus (PCR) Detected A, Stl Adenov F 40/41 PCR Not detected, Stool Astrovirus (PCR) Not detected, Stool Campylobacter PCR Not detected, Stl C.difficile Tox PCR Detected A, Stool Cryptosporidium PCR Not detected, Stl E.coli Shiga Tox PCR Not detected, Stool E coli O157 PCR Not detected, Stl Enterotoxigenic E PCR Not detected, Stool EPEC (PCR) Not detected, Stool EAEC (PCR) Not detected, Stl E. histolytica PCR Not detected, Stool Giardia Lamblia PCR Not detected, Stool Salmonella PCR Not detected, Stool Sapovirus (PCR) Not detected, Stl P. shigelloides PCR Not detected, Stl Shigella/EIEC PCR Not detected, St Y.enterocolitica PCR Not detected, Stool Vibrio (PCR) Not detected, Stl Vibrio cholerae PCR Not detected, Stl Norovirus GI/GII PCR Not detected 01/28/22 18:38: Troponin I 0.03 01/29/22 07:21: Ammonia 94 H I & O for Last 24 hours: Intake & Output 01/26/22 01/27/22 01/28/22 01/29/22 11:59 11:59 11:59 11:59 Intake Total 1080 / 1080 Output Total 600 / 600 Balance 480 / 480 Weight 278 lb 4.985 oz Microbiology Reports for the Last 24 Hours: Microbiology 01/28/22 18:30 Leg,Left - Wound Gram Stain - Final 01/28/22 18:30 Leg,Left - Wound Wound Culture - Preliminary 01/28/22 18:30 Leg,Left - Wound Gram Stain - Final 01/28/22 18:30 Leg,Left - Wound Wound Culture - Preliminary - Constitutional no acute distress, obese - *Routine HEENT Exam Head: Present: normocephalic Eye: Present: EOMI, PERRL. Absent: conjunctival icterus ENT: Present: mucous membranes dry - *Routine Neck Exam Absent: JVD - *Routine Respiratory Exam Present: decreased breath sounds - *Routine Cardiovascular Exam Present: RRR - *Routine Abdominal Exam Present: soft - *Routine Extremities Exam Present: edema - *Routine Skin Exam Present: dry - *Routine Neurological Exam Present: alert, CN II-XII intact. Absent: nystagmus - Routine Psychiatric Exam Present: cooperative Assessment and Plan (1) Diarrhea Status: Acute Qualifiers: Diarrhea type: unspecified type Qualified Code(s): R19.7 - Diarrhea, unspecified Category:
[2022-01-29 12:07] LABS: Basophils # 0.1 K/mm3 (0-0.2); Basophils % 1.8 % (0.1-2.0); Eosinophils # 0.4 K/mm3 (0.0-0.4); Eosinophils % 9.2 % (0.1-12.0); Hematocrit 38.9 % (42.0-52.0); Hemoglobin 12.6 g/dL (14.1-18.0); Lymphocytes # 1.1 K/mm3 (0.7-4.5); Mean Corpuscular HGB Conc 32.4 g/dL (31.8-35.4); Mean Corpuscular Hemoglobin 30.6 pg (27.0-31.2); Mean Corpuscular Volume 94.6 fl (80-94); Mean Platelet Volume 9.9 fl (7.4-10.4); Monocytes # 0.3 K/mm3 (0.1-1.0); Monocytes % 6.5 % (1.7-9.3); Neutrophils # 2.3 K/mm3 (1.8-7.8); Neutrophils % 55.5 % (37.0-80.0); Platelet Count 95 K/mm3 (142-424); Red Blood Count 4.11 M/mm3 (4.60-6.20); Red Cell Distribution Width 19.3 % (11.5-17.5); White Blood Count 4.2 K/mm3 (4.8-10.8)
[2022-01-29 12:15] LABS: Chloride 105 mmol/L (98-107); Sodium 138 mmol/L (136-145)
[2022-01-29 12:17] LABS: Blood Urea Nitrogen 8 mg/dl (9-20); Creatinine Clearance Estimated 125 mL/min (50-200); Estimated Glomerular Filt Rate 120 ml/min (>60); GFR (African American) 146 ML/MIN (>60)
[2022-01-29 12:18] LABS: Alanine Aminotransferase 59 U/L (12-78); Albumin Level 2.8 g/dl (3.5-5.0); Albumin/Globulin Ratio 0.7 (1.1-1.8); Alkaline Phosphatase 210 U/L (38-126); Aspartate Amino Transferase 88 U/L (17-59); Bilirubin,Total 1.8 mg/dl (0.2-1.3); Calcium 7.9 mg/dl (8.4-10.2); Carbon Dioxide 31 mmol/L (22.0-30.0); Globulin 3.9 g/dL (1.3-3.2); Glucose 138 mg/dl (74-100); Total Protein,Serum 6.7 g/dl (6.3-8.2)
--- NOTE | 2022-01-29 12:43 | PC.NURSE ---
Notified endy in respiratory of need for sputum sample, she is on her way up to the floor at this time
--- NOTE | 2022-01-29 17:09 | PC.NURSE ---
Pt has done fin ethis shift. pt reports x1 loose, BM this shift and pt report he has had a lot of gas . Abd soft and non-tender. Hyperactive bowel sounds in all 4 quads. 2 ulcerations on RLE remain covered, no drainage noted. RT attempted to induce pt's sputum this shift, pt given specimen cup and verbalized understanding of need for a sputum sample. Pt has ambulated independently in room w/ satisfactory gait and balance. Pt has been tachy during ambulation but will go back to a normal heart rate when sedentary. No other acute changes or complaints, will monitor.
[2022-01-30] VITALS (10 sets, daily range): BP systolic 140–154; BP diastolic 78–98; PULSE 60–97; RESP 16–18; TEMP 36.6–37.1; O2SAT 96–100; BMI 40.2; BMI 40.1
--- NOTE | 2022-01-30 05:16 | PC.NURSE ---
Addendum entered by Luz Patino RN 01/30/22 05:32: Maintaining contact/enteric precautions. Monitoring pt on tele. Original Note: No acute episodes this shift. Pt has rested intermittently. Pt receiving PO and IV atbx. Pt refused his night time dose of lactulose. Explained to pt importance of medication and its use. Pt verbalized understanding. Pt states I'm pooping enough already, I don't want to poop anymore tonight. Pt showed me an reddened area on his L upper leg. Pt states he hadn't noticed it before, he says the area does not itch, burn, or hurt. No other rashes noted. Circled area w/ skin marker. Redness has not passed outline. Dressing to LLE remains intact. Call light in reach. No needs or complaints voiced at this time.
[2022-01-30 10:08] LABS: Basophils # 0.1 K/mm3 (0-0.2); Eosinophils # 0.5 K/mm3 (0.0-0.4); Eosinophils % 9.2 % (0.1-12.0); Hematocrit 42.9 % (42.0-52.0); Lymphocytes # 1.4 K/mm3 (0.7-4.5); Lymphocytes % 24.6 % (10-50); Mean Corpuscular HGB Conc 32.7 g/dL (31.8-35.4); Mean Corpuscular Hemoglobin 30.2 pg (27.0-31.2); Mean Corpuscular Volume 92.5 fl (80-94); Mean Platelet Volume 10.3 fl (7.4-10.4); Monocytes # 0.5 K/mm3 (0.1-1.0); Monocytes % 9.6 % (1.7-9.3); Neutrophils % 54.6 % (37.0-80.0); Platelet Count 133 K/mm3 (142-424); Red Blood Count 4.64 M/mm3 (4.60-6.20); Red Cell Distribution Width 18.9 % (11.5-17.5); White Blood Count 5.5 K/mm3 (4.8-10.8)
[2022-01-30 10:17] LABS: Chloride 96 mmol/L (98-107); Potassium 3.2 mmoL/L (3.5-5.1); Sodium 137 mmol/L (136-145)
[2022-01-30 10:19] LABS: Blood Urea Nitrogen 14 mg/dl (9-20); Creatinine Clearance Estimated 79 mL/min (50-200); Estimated Glomerular Filt Rate 71 ml/min (>60); GFR (African American) 86 ML/MIN (>60)
[2022-01-30 10:20] LABS: Alanine Aminotransferase 58 U/L (12-78); Albumin Level 3.1 g/dl (3.5-5.0); Albumin/Globulin Ratio 0.7 (1.1-1.8); Alkaline Phosphatase 209 U/L (38-126); Ammonia 98 umol/L (9-30); Anion Gap 7.2 mEq/L (5-15); Aspartate Amino Transferase 83 U/L (17-59); Bilirubin,Total 2.1 mg/dl (0.2-1.3); Calcium 8.8 mg/dl (8.4-10.2); Carbon Dioxide 37 mmol/L (22.0-30.0); Globulin 4.3 g/dL (1.3-3.2); Glucose 160 mg/dl (74-100); Total Protein,Serum 7.4 g/dl (6.3-8.2)
--- NOTE | 2022-01-30 12:35 | HMH.ACPN2 ---
Internal Medicine - PN: Subj *Date: 01/30/22 *Time: 12:35 Interval history: Patient relays diarrhea due to lactulose. It is however reducing his ammonia level. He is on a regimen of cefepime and vancomycin. He did have an elevated troponin on admission, previous cath with normal coronaries, echo is pending. Complaining of severe pain in his left leg. Potassium is low at 3.2 Exam Vital signs and Labs for Last 24 Hours: Temp Pulse Resp BP Pulse Ox 98.2 F 97 H 17 147/93 H 96 01/30/22 11:12 01/30/22 11:12 01/30/22 11:12 01/30/22 11:12 01/30/22 11:12 Laboratory Results - last 24 hr 01/30/22 09:55: WBC 5.5 D, RBC 4.64, Hgb 14.0 L, Hct 42.9, MCV 92.5, MCH 30.2, MCHC 32.7, RDW 18.9 H, Plt Count 133 L D, MPV 10.3, Neut % (Auto) 54.6, Lymph % (Auto) 24.6, [place] % (Auto) 9.6 H, Eos % (Auto) 9.2, Baso % (Auto) 2.0, Neut # (Auto) 3.0, Lymph # (Auto) 1.4, [place] # (Auto) 0.5, Eos # (Auto) 0.5 H, Baso # (Auto) 0.1 01/30/22 09:55: Sodium 137, Potassium 3.2 L, Chloride 96 L, Carbon Dioxide 37 H, Anion Gap 7.2, BUN 14 D, Creatinine 1.10 D, Estimated Creat Clear 79, Estimated GFR 71, Est GFR ( Amer) 86 D, Glucose 160 H, Calcium 8.8, Total Bilirubin 2.1 H, AST 83 H, ALT 58, Alkaline Phosphatase 209 H, Total Protein 7.4, Albumin 3.1 L D, Globulin 4.3 H, Albumin/Globulin Ratio 0.7 L 01/30/22 09:55: Ammonia 98 H I & O for Last 24 hours: Intake & Output 01/27/22 01/28/22 01/29/22 01/30/22 23:59 23:59 23:59 23:59 Intake Total 480 / 480 2009 1700 / 1700 Output Total 1600 / 2000 400 / 400 Balance 480 / -120 410 / 10 1300 / 1300 Weight 278 lb 5 oz 278 lb 4.985 oz 271 lb 2.697 oz Microbiology Reports for the Last 24 Hours: Microbiology 01/28/22 18:30 Leg,Left - Wound Gram Stain - Final 01/28/22 18:30 Leg,Left - Wound Wound Culture - Preliminary 01/28/22 18:30 Leg,Left - Wound Gram Stain - Final 01/28/22 18:30 Leg,Left - Wound Wound Culture - Preliminary 01/28/22 18:30 Anus CRE Surveillance Culture - Final Negative - Constitutional no acute distress, obese, disheveled - *Routine HEENT Exam Head: Present: normocephalic Eye: Present: EOMI, PERRL ENT: Present: mucous membranes moist - *Routine Neck Exam Present: supple. Absent: lymphadenopathy - *Routine Respiratory Exam Present: CTA bilaterally - *Routine Cardiovascular Exam Present: RRR - *Routine Abdominal Exam Present: soft, normoactive bowel sounds. Absent: tenderness, distended, rebound, guarding - *Routine Extremities Exam Present: edema, calf tenderness, tenderness - *Routine Skin Exam Present: lesions. Absent: jaundice - *Routine Neurological Exam Present: alert, oriented X3, moving all extremities, normal speech. Absent: altered mental status Assessment and Plan (1) Diarrhea Status: Acute Qualifiers: Diarrhea type: unspecified type Qualified Code(s): R19.7 - Diarrhea, unspecified Category: Medical Code(s): R19.7 - Diarrhea, unspecified (2) Elevated troponin Status: Acute Category: Medical Code(s): R77.8 - Other specified abnormalities of plasma proteins (3) Hepatic encephalopathy Status: Acute Category: Medical Code(s): K72.90 - Hepatic failure, unspecified without coma (4) Skin ulcer of lower leg Status: Acute Qualifiers: Laterality: left Non-pressure ulcer stage: with fat layer exposed Qualified Code(s): L97.922 - Non-pressure chronic ulcer of unspecified part of left lower leg with fat layer exposed Category: Medical Code(s): L97.909 - Non-pressure chronic ulcer of unspecified part of unspecified lower leg with unspecified severity (5) Venous stasis ulcers Status: Acute Qualifiers: Venous stasis ulcer site: unspecified site Varicose vein presence: without varicose veins Non-pressure ulcer stage: limited to breakdown of skin Qualified Code(s): I87.2 - Venous insufficiency (chronic) (peripheral); L97.901
--- NOTE | 2022-01-30 12:44 | XR_ITS ---
PROCEDURE INFORMATION: Exam: XR Chest Exam date and time: 01/30/2022 1:28 PM Age: 46 years old Clinical indication: Shortness of breath; Additional info: Pna TECHNIQUE: Imaging protocol: Radiologic exam of the chest. Views: 1 view. COMPARISON: CR XR CHEST 2V 01/28/2022 12:54 PM FINDINGS: Lungs: Patchy interstitial infiltrate right lower lobe. Findings unchanged since 01/28/2022. Regions of parenchymal scarring suggested at the left lung base. Pleural spaces: Unremarkable. No pleural effusion. No pneumothorax. Heart/Mediastinum: Unremarkable. No cardiomegaly. Bones/joints: Unremarkable. IMPRESSION: Patchy right lower lobe interstitial infiltrate. No interval change since 01/28/2022.
[2022-01-31] VITALS (7 sets, daily range): BP systolic 135–162; BP diastolic 69–92; PULSE 53–90; RESP 16–19; TEMP 36.6–37.2; O2SAT 95–99; BMI 40.1
--- NOTE | 2022-01-31 03:44 | PC.NURSE ---
Pt has slept majority of my shift. Ambulating to and from bathroom independently. Pts IV infiltrated this shift. IV removed, bandaged, and arm elevated on pillow. Pt refuses to let us start a new IV. Also offered to change dressing on pts LLE, pt refused at this time. Maintaining contact enteric precautions. No acute changes since beginning of shift assessment. Call light in reach. No needs voiced at this time.
[2022-01-31 07:43] LABS: Chloride 96 mmol/L (98-107); Sodium 134 mmol/L (136-145)
[2022-01-31 07:45] LABS: Basophils # 0.1 K/mm3 (0-0.2); Basophils % 1.4 % (0.1-2.0); Eosinophils # 0.5 K/mm3 (0.0-0.4); Eosinophils % 8.1 % (0.1-12.0); Hematocrit 40.7 % (42.0-52.0); Hemoglobin 13.6 g/dL (14.1-18.0); Lymphocytes # 1.9 K/mm3 (0.7-4.5); Lymphocytes % 31.6 % (10-50); Mean Corpuscular HGB Conc 33.4 g/dL (31.8-35.4); Mean Corpuscular Volume 89.8 fl (80-94); Mean Platelet Volume 9.1 fl (7.4-10.4); Monocytes # 0.5 K/mm3 (0.1-1.0); Monocytes % 8.1 % (1.7-9.3); Neutrophils % 50.8 % (37.0-80.0); Platelet Count 136 K/mm3 (142-424); Red Blood Count 4.53 M/mm3 (4.60-6.20); Red Cell Distribution Width 18.8 % (11.5-17.5)
[2022-01-31 07:46] LABS: Alanine Aminotransferase 50 U/L (12-78); Albumin Level 2.9 g/dl (3.5-5.0); Albumin/Globulin Ratio 0.7 (1.1-1.8); Alkaline Phosphatase 201 U/L (38-126); Anion Gap 5.7 mEq/L (5-15); Aspartate Amino Transferase 83 U/L (17-59); Bilirubin,Total 2.1 mg/dl (0.2-1.3); Blood Urea Nitrogen 18 mg/dl (9-20); Calcium 8.3 mg/dl (8.4-10.2); Carbon Dioxide 35 mmol/L (22.0-30.0); Creatinine Clearance Estimated 109 mL/min (50-200); Estimated Glomerular Filt Rate 103 ml/min (>60); GFR (African American) 125 ML/MIN (>60); Globulin 4.3 g/dL (1.3-3.2); Glucose 105 mg/dl (74-100); Total Protein,Serum 7.2 g/dl (6.3-8.2)
[2022-01-31 07:50] LABS: Ammonia 122 umol/L (9-30)
[2022-01-31 07:57] LABS: Potassium 2.7 mmoL/L (3.5-5.1)
--- NOTE | 2022-01-31 08:52 | PC.NURSE ---
Dr. Resendez aware of critical k.
--- NOTE | 2022-01-31 10:55 | PC.NURSE ---
PT UNABLE TO TOLERATE K RUN. NEW IV PLACED. HAVE CALLED PHARM TO HAVE LIDOCAINE ADDED TO K RUNS.
--- NOTE | 2022-01-31 10:56 | HMH.PTWOUND ---
Rehab Inpt Wound Evaluation Rehab IP Wound Evaluation Start: 01/28/22 18:13 Freq: ONCE Status: Active Protocol: Document 01/31/22 10:35 [email or web address] (Rec: 01/31/22 10:55 [email or web address] [id number]) Rehab PT Wound Assessment Patient Status Premedicated Prior to Dressing Change No Subjective Subjective Pt reprots c/o pain - wants to know how do I get some pain medicine Wound Left Lateral Tam Wound Type Stasis Ulcer Wound Length (cm) 4 Wound Width (cm) 3.5 Wound Bed Appearance Dusky Red,Yellow Percentage Granulated (%) 50 Percentage of Slough (%) 50 Wound Margins Description Well Defined Wound Drainage Description Purulent Drainage Amount Moderate Drainage Odor Foul Odor Dressing Status Soiled Primary Dressing Medicated Gauze Pad Comment betadyne gauze Wound Secondary Dressing Type Non-Adherent Gauze Pad,Gauze Roll/Wrap,Adhering Gauze Roll Wound Debridement Method Gauze Wound Debridement Amount of Tissue Minimal Removed Wound Debridement Result Yellow Sloughing Remains Left Medial Tam Wound Type Stasis Ulcer Is This a Chronic Wound Yes Wound Length (cm) 6 Wound Width (cm) 4 Wound Depth (cm) 0.5 Wound Bed Appearance Dusky Red,Yellow Percentage Granulated (%) 75 Percentage of Slough (%) 25 Wound Margins Description Well Defined Wound Drainage Description Purulent Drainage Amount Large Drainage Odor Foul Odor Dressing Status Soiled Wound Topical Solution/Irrigant Enzymatic Irrigant,Antibiotic Irrigant Primary Dressing Medicated Gauze Pad Comment betadyne gauze Wound Secondary Dressing Type Non-Adherent Gauze Pad,Gauze Roll/Wrap,Adhering Gauze Roll Comment kerlix and coban Wound Debridement Method Enzymatic Wound Debridement Amount of Tissue Minimal Removed Wound Debridement Result Yellow Sloughing Remains Plan/Recommendation Comment Pt has chronic LLE wounds w/ chronic non-compliance. Wounds dressed w/ betadyne gauze, kerlix and coban. no debridement tolerated - nsg to perform daily dressing change Eval Complexity Eval Charge Codes 970
--- NOTE | 2022-01-31 13:31 | HMH.ACPN2 ---
Internal Medicine - PN: Subj *Date: 02/01/22 *Time: 09:06 Interval history: doing better -but still high ammonia and has enteritis Exam Vital signs and Labs for Last 24 Hours: Temp Pulse Resp BP Pulse Ox 98.3 F 56 L 16 135/69 96 01/31/22 11:23 01/31/22 11:23 01/31/22 11:23 01/31/22 11:23 01/31/22 11:23 Laboratory Results - last 24 hr 01/31/22 06:58: WBC 6.0, RBC 4.53 L, Hgb 13.6 L, Hct 40.7 L, MCV 89.8, MCH 30.0, MCHC 33.4, RDW 18.8 H, Plt Count 136 L, MPV 9.1, Neut % (Auto) 50.8, Lymph % (Auto) 31.6, [place] % (Auto) 8.1, Eos % (Auto) 8.1, Baso % (Auto) 1.4, Neut # (Auto) 3.0, Lymph # (Auto) 1.9, [place] # (Auto) 0.5, Eos # (Auto) 0.5 H, Baso # (Auto) 0.1 01/31/22 06:58: Sodium 134 L, Potassium 2.7 L*, Chloride 96 L, Carbon Dioxide 35 H, Anion Gap 5.7, BUN 18 D, Creatinine 0.80 D, Estimated Creat Clear 109, Estimated GFR 103, Est GFR ( Amer) 125 D, Glucose 105 H D, Calcium 8.3 L, Total Bilirubin 2.1 H, AST 83 H, ALT 50, Alkaline Phosphatase 201 H, Total Protein 7.2, Albumin 2.9 L, Globulin 4.3 H, Albumin/Globulin Ratio 0.7 L 01/31/22 06:58: Ammonia 122 H I & O for Last 24 hours: Intake & Output 01/29/22 01/30/22 01/31/22 02/01/22 11:59 11:59 11:59 11:59 Intake Total 1080 / 1080 3110 / 3110 1440 / 1440 360 / 360 Output Total 600 / 600 1400 / 1400 400 / 400 Balance 480 / 480 1710 / 1710 1040 / 1040 360 / 360 Weight 278 lb 4.985 oz 271 lb 2.697 oz 270 lb 10.161 oz Microbiology Reports for the Last 24 Hours: Microbiology 01/28/22 18:30 Leg,Left - Wound Gram Stain - Final 01/28/22 18:30 Leg,Left - Wound Wound Culture - Preliminary Gram Negative Rods 01/28/22 18:30 Leg,Left - Wound Gram Stain - Final 01/28/22 18:30 Leg,Left - Wound Wound Culture - Preliminary Gram Negative Rods Gram Negative Rods#2 01/29/22 11:11 Sputum - Expectorated Sputum Gram Stain - Final 01/28/22 15:05 Blood Blood Culture - Preliminary NO GROWTH AFTER 48 HOURS 01/28/22 15:05 Blood Blood Culture - Preliminary NO GROWTH AFTER 48 HOURS - Constitutional no acute distress, obese - *Routine HEENT Exam Head: Present: hematoma Eye: Present: EOMI, PERRL ENT: Present: mucous membranes dry - *Routine Neck Exam Absent: JVD - *Routine Respiratory Exam Present: CTA bilaterally - *Routine Cardiovascular Exam Present: RRR - *Routine Abdominal Exam Present: soft - *Routine Extremities Exam Comments: chronic changes lt lower leg - *Routine Skin Exam Comments: chronic changes lower ext - *Routine Neurological Exam Present: alert, CN II-XII intact - Routine Psychiatric Exam Present: cooperative Assessment and Plan (1) Diarrhea Status: Acute Qualifiers: Diarrhea type: unspecified type Qualified Code(s): R19.7 - Diarrhea, unspecified Category: Medical Code(s): R19.7 - Diarrhea, unspecified (2) Elevated troponin Status: Acute Category: Medical Code(s): R77.8 - Other specified abnormalities of plasma proteins (3) Hepatic encephalopathy Status: Acute Category: Medical Code(s): K72.90 - Hepatic failure, unspecified without coma (4) Skin ulcer of lower leg Status: Acute Qualifiers: Laterality: left Non-pressure ulcer stage: with fat layer exposed Qualified Code(s): L97.922 - Non-pressure chronic ulcer of unspecified part of left lower leg with fat layer exposed Category: Medical Code(s): L97.909 - Non-pressure chronic ulcer of unspecified part of unspecified lower leg with unspecified severity (5) Venous stasis ulcers Status: Acute Qualifiers: Venous stasis ulcer site: unspecified site Varicose vein presence: without varicose veins Non-pressure ulcer stage: limited to breakdown of skin Qualified Code(s): I87.2 - Venous insufficiency (chronic) (peripheral); L97.901 - Non-pressu
[2022-02-01] VITALS: BP 134/70; PULSE 80; PULSE 81; RESP 17; TEMP 37.3; O2SAT 97
[2022-02-01 04:00] VITALS: BP 151/64; PULSE 80; RESP 17; TEMP 37.2; O2SAT 96
[2022-02-01 05:00] VITALS: BMI 41.3
--- NOTE | 2022-02-01 06:22 | PC.NURSE ---
pt rested t/o shift, has complained of pain and was treated with PRN medications, remains on room air, ambulating in room
[2022-02-01 07:03] LABS: Basophils # 0.1 K/mm3 (0-0.2); Eosinophils # 0.4 K/mm3 (0.0-0.4); Eosinophils % 6.3 % (0.1-12.0); Hematocrit 39.8 % (42.0-52.0); Hemoglobin 13.2 g/dL (14.1-18.0); Lymphocytes % 32.9 % (10-50); Mean Corpuscular HGB Conc 33.1 g/dL (31.8-35.4); Mean Corpuscular Hemoglobin 30.7 pg (27.0-31.2); Mean Corpuscular Volume 92.5 fl (80-94); Mean Platelet Volume 9.4 fl (7.4-10.4); Monocytes # 0.6 K/mm3 (0.1-1.0); Monocytes % 9.3 % (1.7-9.3); Neutrophils % 50.6 % (37.0-80.0); Platelet Count 129 K/mm3 (142-424); Red Blood Count 4.31 M/mm3 (4.60-6.20); Red Cell Distribution Width 18.8 % (11.5-17.5)
[2022-02-01 07:15] LABS: Chloride 96 mmol/L (98-107); Potassium 3.3 mmoL/L (3.5-5.1); Sodium 133 mmol/L (136-145)
[2022-02-01 07:18] LABS: Anion Gap 6.3 mEq/L (5-15); Blood Urea Nitrogen 28 mg/dl (9-20); Carbon Dioxide 34 mmol/L (22.0-30.0); Creatinine Clearance Estimated 79 mL/min (50-200); Estimated Glomerular Filt Rate 71 ml/min (>60); GFR (African American) 86 ML/MIN (>60)
[2022-02-01 07:19] LABS: Calcium 8.4 mg/dl (8.4-10.2); Glucose 143 mg/dl (74-100)
[2022-02-01 08:00] VITALS: BP 152/64; PULSE 74; PULSE 77; RESP 14; TEMP 37; O2SAT 98
--- NOTE | 2022-02-01 08:48 | HMH.ACPN2 ---
Internal Medicine - PN: Subj *Date: 02/01/22 *Time: 09:45 Interval history: 46-year-old male patient resting in bed quietly with eyes closed, awakens to verbal stimuli. Ammonia level this morning 59, patient has refused several doses of lactulose, educated on purpose of lactulose. He still remains on vancomycin for his C. difficile. He did refuse to have his blood drawn this morning, discussion with patient regarding needs to have labs drawn, patient permitted blood draw Exam Vital signs and Labs for Last 24 Hours: Temp Pulse Resp BP Pulse Ox 98.6 F 74 14 152/64 H 98 02/01/22 08:00 02/01/22 08:00 02/01/22 08:00 02/01/22 08:00 02/01/22 08:00 Laboratory Results - last 24 hr 02/01/22 06:19: WBC 6.0, RBC 4.31 L, Hgb 13.2 L, Hct 39.8 L, MCV 92.5, MCH 30.7, MCHC 33.1, RDW 18.8 H, Plt Count 129 L, MPV 9.4, Neut % (Auto) 50.6, Lymph % (Auto) 32.9, [place] % (Auto) 9.3, Eos % (Auto) 6.3, Baso % (Auto) 1.0, Neut # (Auto) 3.0, Lymph # (Auto) 2.0, [place] # (Auto) 0.6, Eos # (Auto) 0.4, Baso # (Auto) 0.1 02/01/22 06:19: Sodium 133 L, Potassium 3.3 L D, Chloride 96 L, Carbon Dioxide 34 H, Anion Gap 6.3, BUN 28 H D, Creatinine 1.10 D, Estimated Creat Clear 79, Estimated GFR 71, Est GFR ( Amer) 86 D, Glucose 143 H D, Calcium 8.4 I & O for Last 24 hours: Intake & Output 01/29/22 01/30/22 01/31/22 02/01/22 23:59 23:59 23:59 23:59 Intake Total 2009 2780 / 2780 1600 / 1600 580 / 580 Output Total 1600 / 2000 400 / 400 400 / 400 Balance 410 / 10 2380 / 2380 1200 / 1200 580 / 580 Weight 278 lb 4.985 oz 271 lb 2.697 oz 270 lb 10.161 oz 279 lb 1.6 oz Microbiology Reports for the Last 24 Hours: Microbiology 01/28/22 18:30 Leg,Left - Wound Gram Stain - Final 01/28/22 18:30 Leg,Left - Wound Wound Culture - Preliminary Pseudomonas aeruginosa Gram Negative Rods 01/28/22 18:30 Leg,Left - Wound Gram Stain - Final 01/28/22 18:30 Leg,Left - Wound Wound Culture - Preliminary Pseudomonas aeruginosa Gram Negative Rods - Constitutional no acute distress, chronically ill appearing - *Routine HEENT Exam Head: Present: normocephalic Eye: Present: EOMI ENT: Present: mucous membranes moist - *Routine Neck Exam Present: trachea midline. Absent: tracheal deviation - *Routine Respiratory Exam Present: decreased breath sounds. Absent: accessory muscle use - *Routine Cardiovascular Exam Present: RRR - *Routine Abdominal Exam Present: soft, normoactive bowel sounds. Absent: tenderness, firm - *Routine Extremities Exam Present: edema, full ROM, pulses intact. Absent: cyanosis, clubbing - *Routine Skin Exam Present: erythema, dry, wounds. Absent: intact, cyanosis Comments: Dressing to left lower extremity clean/dry/intact - *Routine Neurological Exam Present: alert, oriented X3. Absent: motor deficit - Routine Psychiatric Exam Present: normal affect, normal thought process. Absent: visual hallucinations Assessment and Plan (1) Diarrhea Status: Acute Qualifiers: Diarrhea type: unspecified type Qualified Code(s): R19.7 - Diarrhea, unspecified Category: Medical Code(s): R19.7 - Diarrhea, unspecified (2) Elevated troponin Status: Acute Category: Medical Code(s): R77.8 - Other specified abnormalities of plasma proteins (3) Hepatic encephalopathy Status: Acute Category: Medical Code(s): K72.90 - Hepatic failure, unspecified without coma (4) Skin ulcer of lower leg Status: Acute Qualifiers: Laterality: left Non-pressure ulcer stage: with fat layer exposed Qualified Code(s): L97.922 - Non-pressure chronic ulcer of unspecified part of left lower leg with fat layer exposed Category: Medical Code(s): L97.909 - Non-pressure chronic ulcer of unspecified part of unspecified lower leg with unspecified severity (5) Venous stasis alexce
--- NOTE | 2022-02-01 09:02 | PC.NURSE ---
Addendum entered by Milagros Patino RN 02/01/22 09:04: Per Mick Carlin APRN- pt has agreed to morning labs. Original Note: Pt refusing morning labs and lactulose. Mick Carlin APRN made aware and is in room with pt at this time.
[2022-02-01 09:39] LABS: Ammonia 59 umol/L (9-30)
--- NOTE | 2022-02-01 11:19 | HMH.ACPN2 ---
Internal Medicine - PN: Subj *Date: 02/01/22 *Time: 11:19 Exam Vital signs and Labs for Last 24 Hours: Temp Pulse Resp BP Pulse Ox 98.6 F 74 14 152/64 H 98 02/01/22 08:00 02/01/22 08:00 02/01/22 08:00 02/01/22 08:00 02/01/22 08:00 Laboratory Results - last 24 hr 02/01/22 06:19: WBC 6.0, RBC 4.31 L, Hgb 13.2 L, Hct 39.8 L, MCV 92.5, MCH 30.7, MCHC 33.1, RDW 18.8 H, Plt Count 129 L, MPV 9.4, Neut % (Auto) 50.6, Lymph % (Auto) 32.9, [place] % (Auto) 9.3, Eos % (Auto) 6.3, Baso % (Auto) 1.0, Neut # (Auto) 3.0, Lymph # (Auto) 2.0, [place] # (Auto) 0.6, Eos # (Auto) 0.4, Baso # (Auto) 0.1 02/01/22 06:19: Sodium 133 L, Potassium 3.3 L D, Chloride 96 L, Carbon Dioxide 34 H, Anion Gap 6.3, BUN 28 H D, Creatinine 1.10 D, Estimated Creat Clear 79, Estimated GFR 71, Est GFR ( Amer) 86 D, Glucose 143 H D, Calcium 8.4 02/01/22 09:11: Ammonia 59 H I & O for Last 24 hours: Intake & Output 01/29/22 01/30/22 01/31/22 02/01/22 23:59 23:59 23:59 23:59 Intake Total 2009 2780 / 2780 1600 / 1600 580 / 580 Output Total 1600 / 2000 400 / 400 400 / 400 Balance 410 / 10 2380 / 2380 1200 / 1200 580 / 580 Weight 126.24 kg 123 kg 122.758 kg 126.598 kg Microbiology Reports for the Last 24 Hours: Microbiology 01/29/22 11:11 Sputum - Expectorated Sputum Gram Stain - Final 01/29/22 11:11 Sputum - Expectorated Sputum Sputum Culture - Preliminary 01/28/22 18:30 Leg,Left - Wound Gram Stain - Final 01/28/22 18:30 Leg,Left - Wound Wound Culture - Preliminary Pseudomonas aeruginosa Gram Negative Rods 01/28/22 18:30 Leg,Left - Wound Gram Stain - Final 01/28/22 18:30 Leg,Left - Wound Wound Culture - Preliminary Pseudomonas aeruginosa Gram Negative Rods Assessment and Plan (1) Diarrhea Status: Acute Qualifiers: Diarrhea type: unspecified type Qualified Code(s): R19.7 - Diarrhea, unspecified Category: Medical Code(s): R19.7 - Diarrhea, unspecified (2) Elevated troponin Status: Acute Category: Medical Code(s): R77.8 - Other specified abnormalities of plasma proteins (3) Hepatic encephalopathy Status: Acute Category: Medical Code(s): K72.90 - Hepatic failure, unspecified without coma (4) Skin ulcer of lower leg Status: Acute Qualifiers: Laterality: left Non-pressure ulcer stage: with fat layer exposed Qualified Code(s): L97.922 - Non-pressure chronic ulcer of unspecified part of left lower leg with fat layer exposed Category: Medical Code(s): L97.909 - Non-pressure chronic ulcer of unspecified part of unspecified lower leg with unspecified severity (5) Venous stasis ulcers Status: Acute Qualifiers: Venous stasis ulcer site: unspecified site Varicose vein presence: without varicose veins Non-pressure ulcer stage: limited to breakdown of skin Qualified Code(s): I87.2 - Venous insufficiency (chronic) (peripheral); L97.901 - Non-pressure chronic ulcer of unspecified part of unspecified lower leg limited to breakdown of skin Category: Medical Code(s): I83.009 - Varicose veins of unspecified lower extremity with ulcer of unspecified site; L97.909 - Non-pressure chronic ulcer of unspecified part of unspecified lower leg with unspecified severity (6) COPD (chronic obstructive pulmonary disease) Status: Chronic Qualifiers: COPD type: unspecified COPD Qualified Code(s): J44.9 - Chronic obstructive pulmonary disease, unspecified Category: Medical Code(s): J44.9 - Chronic obstructive pulmonary disease, unspecified (7) Cirrhosis Status: Chronic Qualifiers: Hepatic cirrhosis type: other cirrhosis Qualified Code(s): K74.69 - Other cirrhosis of liver Category: Medical Code(s): K74.60 - Unspecified cirrhosis of liver (8) Hypertension Status: Chronic Qualifiers: Hypertension type: primary hyperten
[2022-02-01 11:48] VITALS: BP 137/74; PULSE 81; RESP 15; TEMP 36.8; O2SAT 96
[2022-02-01 12:00] VITALS: PULSE 73
[2022-02-01 16:00] VITALS: BP 135/71; PULSE 90; RESP 14; TEMP 37; O2SAT 96
--- NOTE | 2022-02-10 17:43 | HMH.DCSUM ---
General - General Admission date:: 01/28/22 Discharge date: 02/01/22 HPI HPI: Patient is a 46-year-old white male, well-known to our practice, who presented to the office earlier today with complaints. Patient has had copious diarrhea for the last 4 days, feels volume depleted, feels markedly weakened, and relayed that he felt like he was slowly dying. He was sent the office to the emergency room for further evaluation. Patient relayed a sensation of a brain fog. He has underlying cirrhosis, is status post a TIPS procedure and has been less than compliant with his regimen. His ammonia was elevated in the ER. Patient's chest x-ray revealed an infiltrative process in the right lower lobe. Patient has chronic ulcers in the left leg, 2 in the anterior calf in the setting of chronic venous stasis. These ulcers are longstanding, nonhealing, patient has been noncompliant with wound care. I have concerns that over time the 2 individual lesions will coalesce into a single lesion. Patient had been evaluated for osteomyelitis previously. The skin around the ulcer is is red and warm but not ascending. Patient also had a CT of his abdomen which showed cirrhosis but no ascites. Patient also had an elevated troponin, EKG showed no ischemic changes. He had no complaints of chest pain while in the office. He is admitted for further evaluation and treatment. His ammonia level is 149. Hospital Course Hospital Course: Patient was admitted on 01/28/2022 after having been seen in my office for acute illness. The course of his work-up he was found to have elevated troponins and elevated ammonia. These occur in the setting of cirrhosis. He was seen in consultation with cardiology. No further plans were taken. Electrolyte aberrations were corrected. Lactulose was utilized to treat elevated ammonia. Patient became progressively upset, refused lactulose, refused lab work, and left AMA on 02/01/2022 Objective Vital signs: Temp Pulse Resp BP Pulse Ox 98.6 F 90 14 135/71 96 02/01/22 16:00 02/01/22 16:00 02/01/22 16:00 02/01/22 16:00 02/01/22 16:00 chronically ill appearing - *Routine HEENT Exam Head: Present: normocephalic Eye: Present: EOMI, PERRL ENT: Present: mucous membranes moist - *Routine Neck Exam Present: supple - *Routine Respiratory Exam Present: CTA bilaterally - *Routine Cardiovascular Exam Present: RRR - *Routine Abdominal Exam Present: obese - *Routine Extremities Exam Present: edema - *Routine Skin Exam Present: lesions Results Labs on day of discharge: Preliminary micro results at discharge 01/28/22 18:30 Wound Culture - Preliminary Leg,Left - Wound Pseudomonas aeruginosa Gram Negative Rods DS: Diagnosis - Discharge Diagnosis (1) Diarrhea Status: Acute (2) Elevated troponin Status: Acute (3) Hepatic encephalopathy Status: Acute (4) Skin ulcer of lower leg Status: Acute (5) Venous stasis ulcers Status: Acute (6) COPD (chronic obstructive pulmonary disease) Status: Chronic (7) Cirrhosis Status: Chronic (8) Hypertension Status: Chronic (9) Hypokalemia Status: Acute Discharge Plan - Patient Discharge Instructions ACTIVITY: Continue current activity DIET: continue same diet Patient Instructions: DI for Pneumonia -- Adult, DI for Antibiotic -- associated Colitis -- C difficile, DI for Rotavirus -- Adult, Venous Stasis Ulcer, DI for Hepatic Encephalopathy - Follow up Plan Disposition: Left Against Medical Advice Condition at discharge:: Improved Home Medications: Home Medications Medication Instructions Recorded Confirmed Type Metoprolol Succinate [Toprol XL 25 mg PO DAILY 11/16/21 01/28/22 History 25mg tablet] Potassium Chloride 20 meq PO DAILY 11/16/21 01/28/22 History Torsemide [Demadex] 20 mg PO DIRECTED 11/16/21 01/28/22 History Albuterol Sulfate [Proventil Hfa] 2 puff I
== END 2022-02-01 17:09 | disposition left against medical advice (07) | DRG 442 ==
LOC: ER 15:42 → 2ND 15:59
PROVIDERS: Emergency Medicine; Nurse Practitioner Family; Admitting Provider Family Medicine; Emergency Provider Emergency Medicine; PCP Family Medicine; Visit Provider Family Medicine
DX: K72.90 Hepatic failure, unspecified without coma (principal); D61.818 Other pancytopenia; L97.922 Non-pressure chronic ulcer of unspecified part of left lower leg with fat layer exposed; I11.0 Hypertensive heart disease with heart failure; K74.60 Unspecified cirrhosis of liver; I50.9 Heart failure, unspecified; I73.9 Peripheral vascular disease, unspecified; Z87.891 Personal history of nicotine dependence; E03.9 Hypothyroidism, unspecified; J44.9 Chronic obstructive pulmonary disease, unspecified; E78.5 Hyperlipidemia, unspecified; R77.8 Other specified abnormalities of plasma proteins; I87.2 Venous insufficiency (chronic) (peripheral); E87.6 Hypokalemia; R19.7 Diarrhea, unspecified
CPT/HCPCS: 36415; 71045; 71046; 74176; 80048; 80053; 81001; 82140; 83605; 83690; 84484; 85025; 87040; 87070; 87077; 87081; 87186; 87205; 87506; 93005; 93306; 99285; C9803; J0456; J0696; J3370; U0003; U0005

== ENCOUNTER 2022-02-11 13:08 | Emergency (ER) | payer MEDICARE, SELFPAY ==
[2022-02-11 13:08] VITALS: BP 182/119; PULSE 101; RESP 20; TEMP 36.8; O2SAT 97; BMI 36.9
--- NOTE | 2022-02-11 13:26 | HMH.EDEXTP ---
ED Disposition Clinical Impression: Ulcer, skin, chronic Qualifiers: Non-pressure ulcer stage: unspecified non-pressure ulcer stage Qualified Code(s): L98.499 - Non-pressure chronic ulcer of skin of other sites with unspecified severity Disposition: Home, Self-Care Condition on Discharge: Fair Additional Instructions: Keep all follow-up appointments as scheduled. At this point, your wound on your left leg does not appear to be acutely infected and does not require antibiotics. Please return to the emergency department if you feel worse in any way. Continue taking all medications as prescribed. Referrals: Carlos Stanton MD [Primary Care Provider] - - Critical Care Critical Care Time: No Attestation: On 02/11/22, the high probability of a clinically significant, sudden or life threatening deterioration of the following system(s) required my full and direct attention, intervention and personal management. The time I documented below is in addition to time spent performing reported procedures but includes the following listed in this critical care notation. Medical Decision Making - Joshua Inquiry Pt receiving controlled substance: No Vital Signs: 02/11/22 13:08 02/11/22 13:31 Temperature 98.2 F Temperature Source Oral Pulse Rate 95 H Pulse Rate [Right Radial] 101 H Respiratory Rate 20 Blood Pressure 176/113 H Blood Pressure [Right Arm] 182/119 H Blood Pressure Mean 134 Blood Pressure Mean [Right Arm] 140 Blood Pressure Source [Right Arm] Automatic Cuff Blood Pressure Position [Right Arm] Sitting 02 Sat by Pulse Oximetry 97 96 Oxygen Delivery Method Room Air Orders (Tests/Meds): ED MEDICATIONS Discontinued Medications Generic Name Dose Route Start Last Admin Trade Name Freq PRN Reason Stop Dose Admin Hydrocodone Bitart/Acetaminophen 2 tab 02/11/22 13:31 02/11/22 13:49 Hydrocodone/Apap 5/325 Mg Tablet PO 02/11/22 13:32 2 tab ONCE ONE Administration Medical Decision Narrative: The patient's complaint seems to be colonic. He already has follow-up appointments for this. There is no evidence of acute infection at this time. I feel the patient can be discharged in stable condition with instructions to follow-up with his primary care physician and/or surgeon as needed. Extremity Problem HPI - General Stated complaint: leg swelling/abcess Time Seen by Provider: 02/11/22 13:26 Mode of Arrival: Ambulatory - History of Present Illness HPI Narrative: The patient presents to the emergency department complaining of chronic Left lower extremity pain. He is scheduled to have surgery towards the end of this month. He missed an appointment with his primary care physician yesterday and has a repeat appointment scheduled next week. MD Complaint: extremity pain - Related Data Home Medications Medication Instructions Recorded Confirmed Metoprolol Succinate [Toprol XL 25 mg PO DAILY 11/16/21 01/28/22 25mg tablet] Potassium Chloride 20 meq PO DAILY 11/16/21 01/28/22 Torsemide [Demadex] 20 mg PO DIRECTED 11/16/21 01/28/22 Albuterol Sulfate [Proventil Hfa] 2 puff IH QIDP PRN 11/17/21 01/28/22 Lisinopril/Hydrochlorothiazide 1 tab PO DAILY 11/17/21 01/28/22 [Lisinopril-Hctz 10-12.5 mg Tab] Ibuprofen [Ibuprofen 800mg 800 mg PO TIDP PRN 12/11/21 01/28/22 Tablet] Gabapentin 600 mg PO TID 01/28/22 01/28/22 Allergies Allergy/AdvReac Type Severity Reaction Status Date / Time codeine Allergy Severe Anaphylaxis Verified 01/28/22 10:54 guaifenesin [From Mucinex] Allergy Severe SWELLS Verified 01/28/22 10:54 ketorolac [From Toradol] Allergy Severe Difficulty Verified 01/28/22 10:54 Swallowing [facility] History - Hepatitis A Screen Drug use history?: No Attestation statement:: This patient has been screened for Hepatitis A risk factors. I have reviewed the patient's past medical history: Yes Medical History: Reports:: Congestive Heart Failure, Chron
[2022-02-11 13:31] VITALS: BP 176/113; PULSE 95; O2SAT 96
--- NOTE | 2022-02-11 14:10 | PC.NURSE ---
pt given crackers and diet sprite
[2022-02-11 14:50] VITALS: BP 152/74; PULSE 78; RESP 18; TEMP 36.6; O2SAT 98
== END 2022-02-11 14:52 | disposition home or self-care (01) ==
PROVIDERS: Emergency Provider Emergency Medicine; PCP Family Medicine
DX: M79.662 Pain in left lower leg (principal); G89.4 Chronic pain syndrome; L97.829 Non-pressure chronic ulcer of other part of left lower leg with unspecified severity; J44.9 Chronic obstructive pulmonary disease, unspecified; I10 Essential (primary) hypertension; R56.9 Unspecified convulsions
CPT/HCPCS: 99283

== ENCOUNTER 2022-04-22 15:44 | Emergency (ER) | payer MEDICARE, SELFPAY ==
[2022-04-22 16:51] VITALS: BP 156/99; PULSE 98; RESP 18; TEMP 37.3; O2SAT 99; BMI 41.5
--- NOTE | 2022-04-22 17:20 | EXP.UTC ---
Discharge Plan Disposition Patient Disposition: Home, Self-Care Condition: Fair Prescriptions Prescriptions: New Paxlovid (EUA) 300 mg (150 mg x 2)-100 mg tablets,dose pack See Rx Instructions .ROUTE .COMPLEX Qty: 30 0RF Rx Instructions: take TWO 150 mg tablets of nirmatrelvir with ONE 100 mg tablet of ritonavir twice daily for 5 days doxycycline hyclate 100 mg tablet 100 mg PO BID Qty: 20 0RF aspirin 81 mg tablet,delayed release (DR/EC) 81 mg PO DAILY Qty: 10 0RF albuterol sulfate 90 mcg/actuation HFA aerosol inhaler 2 inh inhalation Q8H PRN (Reason: shortness of breath or wheezing) Qty: 8.5 0RF No Action torsemide 20 mg tablet 20 mg PO DIRECTED Qty: 90 3RF Rx Instructions: two tablets (40mg) every morning, one tablet (20mg) in the evening methylprednisolone [Medrol (Glenn)] 4 mg tablets,dose pack See Rx Instructions PO PER PKG DIR Qty: 21 0RF Rx Instructions: PO PER PKG DIR cefdinir 300 mg capsule 300 mg PO BID 10 Days Qty: 20 0RF azithromycin 500 mg tablet 500 mg PO DAILY 3 Days Qty: 3 0RF potassium chloride 20 mEq tablet extended release 20 meq PO DAILY Qty: 90 3RF albuterol sulfate 90 mcg/actuation HFA aerosol inhaler 2 puff IH QIDP PRN (Reason: shortness of breath or wheezing) Qty: 8.5 10RF hydrocodone-acetaminophen 7.5-325 mg tablet 1 tab PO HS PRN (Reason: pain) Qty: 3 0RF gabapentin 600 mg tablet 600 mg PO TID Qty: 45 0RF ibuprofen 800 MG tablet 800 mg PO TIDP PRN (Reason: Moderate Pain) metoprolol succinate 25 MG tablet extended release 24 hr 25 mg PO DAILY lisinopril-hydrochlorothiazide 1 EACH tablet 1 tab PO DAILY Referrals Follow up/Referrals: Carlos Stanton MD [Primary Care Provider] - See instructions Activity Restrictions/Add. Instructions Additional Instructions/Restrictions: Take all meds as directed until gone Get sunlight, fresh air, walk around, sleep on stomach, take deep breaths hourly You have been tested for COVID19. Please isolate yourself as if you are positive until test results received. Current CDC guidelines are quarantine X 5 days from onset of symptoms, with an additional 5 days of mask wearing at all times. If you have difficulty breathing, signs of dehydration, etc please seek treatment at ER. Return to ER if difficulty breathing Discharge ED Provider: Lisbeth Robin [facility] [place] HPI General Stated complaint: COVID TEST, fatigue, soa Mode of Arrival: Ambulatory Source of Information: Patient Limitations: No Limitations Time Seen by Provider: 04/22/22 17:32 Description of Symptoms (Recalled from Triage Doc. by RN): pt comes in with c/o positive covid test at home. symptoms began today and include loss of voice, shortness of breath, dizzy, fatigue, chills, body aches. HEENT Symptoms (Recalled from RN notes): Yes Resp Symptoms (Recalled from RN notes): Yes Skin Symptoms (Recalled from RN notes): No MS Symptoms (Recalled from RN notes): No Functional Status (Recalled from RN notes): n/a History of Present Illness Provider Complaint: Headache, sinus pain, sore throat, runny nose, congestion, cough, fatigue, shortness of breath X 3 days. Took home COVID19 test earlier today and it was positive. Patient no longer smokes, but has history of COPD. Also has HTN, cirrhosis, hypothyroidism, CAD. Patient was not vaccinated against COVID19. Onset (ago): day(s) (3) Location: chest Associated symptoms: cough, fever/chills, headaches, loss of appetite and shortness of breath Treatments prior to arrival: none Related Data Home Medications Medication Instructions Recorded Confirmed metoprolol succinate 25 mg 25 mg PO DAILY High blood pressure 11/16/21 02/15/22 tablet,extended release 24 hr lisinopril 10 1 tab PO DAILY Hypertension 11/17/21 02/15/22 mg-hydrochlorothiazide 12.5 mg tablet ibuprofen 800 mg tablet 800 mg PO TIDP PRN Moderate Pain 12/11/21 02/15/22 Previous Rx's
[2022-04-22 17:39] VITALS: BP 156/99; PULSE 98; RESP 18; TEMP 37.3
== END 2022-04-22 17:40 | disposition home or self-care (01) ==
PROVIDERS: Emergency Provider Physician Assistant; PCP Family Medicine
DX: U07.1 COVID-19 (principal); J02.9 Acute pharyngitis, unspecified; R50.9 Fever, unspecified; M79.10 Myalgia, unspecified site; R51.9 Headache, unspecified; I10 Essential (primary) hypertension; I25.10 Atherosclerotic heart disease of native coronary artery without angina pectoris; E03.9 Hypothyroidism, unspecified; G89.29 Other chronic pain; J44.9 Chronic obstructive pulmonary disease, unspecified; Z79.1 Long term (current) use of non-steroidal anti-inflammatories (NSAID); Z79.51 Long term (current) use of inhaled steroids; Z79.82 Long term (current) use of aspirin; Z79.899 Other long term (current) drug therapy; Z88.5 Allergy status to narcotic agent; Z88.6 Allergy status to analgesic agent; Z88.8 Allergy status to other drugs, medicaments and biological substances; Z87.891 Personal history of nicotine dependence
CPT/HCPCS: 99213; G0463

== ENCOUNTER → 2022-04-26 06:10 | Outpatient (CLI) | payer MEDICARE, SELFPAY | PROVIDERS: PCP Family Medicine; Visit Provider Family Medicine | DX: S81.802A Unspecified open wound, left lower leg, initial encounter (principal); B95.2 Enterococcus as the cause of diseases classified elsewhere; B95.7 Other staphylococcus as the cause of diseases classified elsewhere; B96.4 Proteus (mirabilis) (morganii) as the cause of diseases classified elsewhere | CPT/HCPCS: 87070; 87077; 87186; 87205 ==

== ENCOUNTER 2022-05-01 10:23 | Emergency (ER) | payer MEDICARE, OTHER, SELFPAY ==
[2022-05-01] VITALS (10 sets, daily range): BP systolic 92–161; BP diastolic 56–118; PULSE 68–110; RESP 16–24; TEMP 36.6–37.2; O2SAT 93–98; BMI 39.9
--- NOTE | 2022-05-01 10:56 | PC.NURSE ---
iv started 20g lt hand
--- NOTE | 2022-05-01 10:57 | HMH.EDGENADL ---
Discharge Plan Disposition Patient Disposition: Home, Self-Care Condition: Fair Prescriptions Prescriptions: No Action torsemide 20 mg tablet 20 mg PO DIRECTED Qty: 90 3RF Rx Instructions: two tablets (40mg) every morning, one tablet (20mg) in the evening azithromycin 500 mg tablet 500 mg PO DAILY 3 Days Qty: 3 0RF potassium chloride 20 mEq tablet extended release 20 meq PO DAILY Qty: 90 3RF albuterol sulfate 90 mcg/actuation HFA aerosol inhaler 2 puff IH QIDP PRN (Reason: shortness of breath or wheezing) Qty: 8.5 10RF gabapentin 600 mg tablet 600 mg PO TID Qty: 45 1RF hydrocodone-acetaminophen 7.5-325 mg tablet 1 tab PO HS PRN (Reason: pain) Qty: 30 0RF sulfamethoxazole-trimethoprim [Bactrim DS] 800-160 mg tablet 1 tab PO BID Qty: 20 0RF ibuprofen 800 MG tablet 800 mg PO TIDP PRN (Reason: Moderate Pain) Paxlovid (EUA) 300 mg (150 mg x 2)-100 mg tablets,dose pack See Rx Instructions .ROUTE .COMPLEX Qty: 30 0RF Rx Instructions: take TWO 150 mg tablets of nirmatrelvir with ONE 100 mg tablet of ritonavir twice daily for 5 days doxycycline hyclate 100 mg tablet 100 mg PO BID Qty: 20 0RF aspirin 81 mg tablet,delayed release (DR/EC) 81 mg PO DAILY Qty: 10 0RF albuterol sulfate 90 mcg/actuation HFA aerosol inhaler 2 inh inhalation Q8H PRN (Reason: shortness of breath or wheezing) Qty: 8.5 0RF metoprolol succinate 25 MG tablet extended release 24 hr 25 mg PO DAILY lisinopril-hydrochlorothiazide 1 EACH tablet 1 tab PO DAILY Referrals Follow up/Referrals: Carlos Stanton MD [Primary Care Provider] - See instructions Activity Restrictions/Add. Instructions Additional Instructions/Restrictions: Continue doxycycline. Continue current pain medication. See Dr. Stanton in his office tomorrow or Monday at any time that you choose. Clinical Impressions Clinical Impression: Chronic skin ulcer of lower leg Discharge ED Provider: Haider Benedict General Adult [facility] General Chief complaint: Wound/Laceration Stated complaint: open wounds chronic Time Seen by Provider: 05/01/22 11:00 Mode of Arrival: EMS Source of Information: Patient Limitations: No Limitations Description of Symptoms (Recalled from ER Triage Doc. by RN): to ed per squad with c/o 2 open wounds to lt lower leg pt has been seeing pcp and taking doxy but states symptoms getting pregressively worse. denies fever, chills, nausea History of Present Illness HPI narrative: Brought in by ambulance. Complains of worsening pain from 2 chronic wounds on his left leg. States that he has had the wounds for 3 years, but he now has severe pain for the past 4 days. States that he ran a fever of 102.5 degrees 2 days ago. States that he cannot even put weight on his left foot and therefore has no balance. He is on doxycycline. He says that he saw his primary care provider, Dr. Stanton, a few days ago and has been referred to a surgeon in [place]. He says they are going to dry skin grafts and if that does not work he will need his leg amputated. He states he is on Lortab for pain, last dose was early this morning, he says it is not helping. Related Data Home Medications Medication Instructions Recorded Confirmed metoprolol succinate 25 mg 25 mg PO DAILY High blood pressure 11/16/21 04/26/22 tablet,extended release 24 hr lisinopril 10 1 tab PO DAILY Hypertension 11/17/21 04/26/22 mg-hydrochlorothiazide 12.5 mg tablet ibuprofen 800 mg tablet 800 mg PO TIDP PRN Moderate Pain 12/11/21 04/26/22 Previous Rx's Medication Instructions Recorded albuterol sulfate 90 mcg/actuation 2 puff inhalation QIDP PRN 02/15/22 aerosol inhaler shortness of breath or wheezing #8.5 grams azithromycin 500 mg tablet 500 mg PO DAILY 3 days #3 tabs 02/15/22 potassium chloride 20 mEq 20 meq PO DAILY Supplement #90 tabs 02/15/22 tablet,extended release torsemide 20 mg tablet 20 mg PO DIRECTED Fluid
--- NOTE | 2022-05-01 11:09 | XR_ITS ---
PROCEDURE INFORMATION: Exam: XR Left Tibia and Fibula Exam date and time: 05/01/2022 11:21 AM Age: 47 years old Clinical indication: Swelling, leg or foot; Additional info: Wound, pain TECHNIQUE: Imaging protocol: Radiologic exam of the Left tibia and fibula. Views: 2 views. COMPARISON: CR XR TIBIA FIBULA LT 2V 12/10/2021 1:05 PM FINDINGS: Bones/joints: No acute osseous pathology in the visualized tibia and fibula. Anatomic alignment. Soft tissues: Soft tissue swelling and ulceration about the anterior aspect of the lower leg. IMPRESSION: Soft tissue swelling and ulceration about the anterior aspect of the lower leg.
[2022-05-01 11:11] LABS: Basophils # 0.1 K/mm3 (0-0.2); Basophils % 2.6 % (0.1-2.0); Eosinophils # 0.1 K/mm3 (0.0-0.4); Eosinophils % 2.1 % (0.1-12.0); Hematocrit 36.2 % (42.0-52.0); Hemoglobin 12.1 g/dL (14.1-18.0); Lymphocytes # 1.1 K/mm3 (0.7-4.5); Lymphocytes % 23.5 % (10-50); Mean Corpuscular HGB Conc 33.3 g/dL (31.8-35.4); Mean Corpuscular Volume 96.1 fl (80-94); Mean Platelet Volume 8.7 fl (7.4-10.4); Monocytes # 0.3 K/mm3 (0.1-1.0); Neutrophils % 65.8 % (37.0-80.0); Platelet Count 109 K/mm3 (142-424); Red Blood Count 3.77 M/mm3 (4.60-6.20); Red Cell Distribution Width 17.4 % (11.5-17.5); White Blood Count 4.6 K/mm3 (4.8-10.8)
[2022-05-01 11:12] LABS: Chloride 106 mmol/L (98-107); Potassium 3.2 mmoL/L (3.5-5.1); Sodium 142 mmol/L (136-145)
--- NOTE | 2022-05-01 11:13 | PC.NURSE ---
pt given urinal
[2022-05-01 11:15] LABS: Alanine Aminotransferase 45 U/L (12-78); Albumin Level 2.9 g/dl (3.5-5.0); Albumin/Globulin Ratio 0.7 (1.1-1.8); Alkaline Phosphatase 210 U/L (38-126); Anion Gap 10.2 mEq/L (5-15); Aspartate Amino Transferase 89 U/L (17-59); Bilirubin,Total 2.6 mg/dl (0.2-1.3); Blood Urea Nitrogen 9 mg/dl (9-20); Carbon Dioxide 29 mmol/L (22.0-30.0); Creatinine Clearance Estimated 221 mL/min (50-200); Estimated Glomerular Filt Rate 120 ml/min (>60); GFR (African American) 145 ML/MIN (>60); Globulin 4.4 g/dL (1.3-3.2); Total Protein,Serum 7.3 g/dl (6.3-8.2)
[2022-05-01 11:16] LABS: Calcium 7.4 mg/dl (8.4-10.2); Glucose 100 mg/dl (74-100); Lactic Acid 1.1 mmol/L (0.7-2.1)
[2022-05-01 11:25] LABS: C-Reactive Protein 9.1 mg/L (0-4)
[2022-05-01 11:35] LABS: Erythrocyte Sedimentation Rate 45 mm/hr (0-15)
--- NOTE | 2022-05-01 11:53 | PC.NURSE ---
Dr Benedict speaking with Dr bustamante
--- NOTE | 2022-05-01 13:11 | PC.NURSE ---
REGULAR LUNCH TRAY SET-UP FOR PT
--- NOTE | 2022-05-01 14:00 | PC.NURSE ---
dsd applied to lt lower leg
== END 2022-05-01 16:52 | disposition home or self-care (01) ==
PROVIDERS: Emergency Provider Emergency Medicine; PCP Family Medicine
DX: L97.222 Non-pressure chronic ulcer of left calf with fat layer exposed (principal); Z79.899 Other long term (current) drug therapy; I10 Essential (primary) hypertension; J44.9 Chronic obstructive pulmonary disease, unspecified; K74.60 Unspecified cirrhosis of liver; Z88.6 Allergy status to analgesic agent; Z88.8 Allergy status to other drugs, medicaments and biological substances; F14.11 Cocaine abuse, in remission; F15.11 Other stimulant abuse, in remission; Z86.14 Personal history of Methicillin resistant Staphylococcus aureus infection
CPT/HCPCS: 73590; 80053; 83605; 85025; 85651; 86140; 87040; 87070; 87077; 87186; 87205; 96374; 96375; 99284; J2405

== ENCOUNTER 2022-05-06 17:39 | Emergency (ER) | payer MEDICARE, OTHER, SELFPAY ==
[2022-05-06 17:40] VITALS: BP 169/93; PULSE 109; RESP 19; TEMP 36.9; O2SAT 99; BMI 36.9
--- NOTE | 2022-05-06 17:59 | XR_ITS ---
PROCEDURE INFORMATION: Exam: XR Left Tibia and Fibula Exam date and time: 05/06/2022 6:06 PM Age: 47 years old Clinical indication: Pain; Lower leg; Left; Prior surgery; Additional info: Ulcer, patient stated this has been off and on for 2 years, and he has had surgeries on left lower leg TECHNIQUE: Imaging protocol: Radiologic exam of the Left tibia and fibula. Views: 2 views. COMPARISON: CR XR TIBIA FIBULA LT 2V 05/01/2022 11:21 AM FINDINGS: Bones/joints: There is no evidence for cortical disruption of the distal diaphyses of the tibia or fibula. No evidence of acute displaced cortical disruption or dislocation. Plantar calcaneal spur. Minimal osteophytosis and eburnation of the articulating surfaces of the knee and ankle. Soft tissues: There is lucency within the soft tissues adjacent to the distal diaphysis of the tibia and fibula anteriorly in a region measuring approximately 8.3 x 3.9 x 3.2 cm. This appears to be a large soft tissue ulceration. IMPRESSION: 1. 8.3 x 3.9 x 3.2 cm ulceration along the anterior foreleg soft tissues. No underlying osseous abnormality is detected. 2. Mild degenerative changes.
[2022-05-06 18:01] VITALS: BP 180/84; PULSE 99; RESP 18; O2SAT 99
[2022-05-06 18:31] VITALS: BP 127/87; PULSE 101; RESP 18; O2SAT 100
[2022-05-06 18:51] LABS: Anion Gap 9.7 mEq/L (5-15); Blood Urea Nitrogen 10 mg/dl (9-20); Calcium 7.4 mg/dl (8.4-10.2); Carbon Dioxide 29 mmol/L (22.0-30.0); Chloride 104 mmol/L (98-107); Creatinine Clearance Estimated 205 mL/min (50-200); Estimated Glomerular Filt Rate 120 ml/min (>60); GFR (African American) 145 ML/MIN (>60); Glucose 101 mg/dl (74-100); Sodium 140 mmol/L (136-145)
[2022-05-06 18:58] LABS: Potassium 2.7 mmoL/L (3.5-5.1)
[2022-05-06 19:11] LABS: Eosinophils # 0.1 K/mm3 (0.0-0.4); Eosinophils % 2.8 % (0.1-12.0); Hematocrit 37.1 % (42.0-52.0); Hemoglobin 12.1 g/dL (14.1-18.0); Lymphocytes % 25.4 % (10-50); Mean Corpuscular HGB Conc 32.5 g/dL (31.8-35.4); Mean Corpuscular Hemoglobin 32.5 pg (27.0-31.2); Mean Corpuscular Volume 100.1 fl (80-94); Mean Platelet Volume 8.5 fl (7.4-10.4); Monocytes # 0.3 K/mm3 (0.1-1.0); Monocytes % 6.6 % (1.7-9.3); Neutrophils # 2.5 K/mm3 (1.8-7.8); Neutrophils % 64.3 % (37.0-80.0); Platelet Count 98 K/mm3 (142-424); Red Cell Distribution Width 17.7 % (11.5-17.5); White Blood Count 3.8 K/mm3 (4.8-10.8)
--- NOTE | 2022-05-06 19:30 | PC.NURSE ---
Nurse rounded on patient with md. Patient was advised that his condition was stable and he would be discharged to follow up with pcp.
--- NOTE | 2022-05-06 19:59 | HMH.EDGENADL ---
Discharge Plan Disposition Patient Disposition: Home, Self-Care Condition: Good Chief Complaint: Wound/Laceration Prescriptions Prescriptions: No Action torsemide 20 mg tablet 20 mg PO DIRECTED Qty: 90 3RF Rx Instructions: two tablets (40mg) every morning, one tablet (20mg) in the evening azithromycin 500 mg tablet 500 mg PO DAILY 3 Days Qty: 3 0RF potassium chloride 20 mEq tablet extended release 20 meq PO DAILY Qty: 90 3RF albuterol sulfate 90 mcg/actuation HFA aerosol inhaler 2 puff IH QIDP PRN (Reason: shortness of breath or wheezing) Qty: 8.5 10RF gabapentin 600 mg tablet 600 mg PO TID Qty: 45 1RF hydrocodone-acetaminophen 7.5-325 mg tablet 1 tab PO HS PRN (Reason: pain) Qty: 30 0RF sulfamethoxazole-trimethoprim [Bactrim DS] 800-160 mg tablet 1 tab PO BID Qty: 20 0RF ibuprofen 800 MG tablet 800 mg PO TIDP PRN (Reason: Moderate Pain) Paxlovid (EUA) 300 mg (150 mg x 2)-100 mg tablets,dose pack See Rx Instructions .ROUTE .COMPLEX Qty: 30 0RF Rx Instructions: take TWO 150 mg tablets of nirmatrelvir with ONE 100 mg tablet of ritonavir twice daily for 5 days doxycycline hyclate 100 mg tablet 100 mg PO BID Qty: 20 0RF aspirin 81 mg tablet,delayed release (DR/EC) 81 mg PO DAILY Qty: 10 0RF albuterol sulfate 90 mcg/actuation HFA aerosol inhaler 2 inh inhalation Q8H PRN (Reason: shortness of breath or wheezing) Qty: 8.5 0RF metoprolol succinate 25 MG tablet extended release 24 hr 25 mg PO DAILY lisinopril-hydrochlorothiazide 1 EACH tablet 1 tab PO DAILY Referrals Follow up/Referrals: Carlos Stanton MD [Primary Care Provider] - See instructions Clinical Impressions Clinical Impression: Cellulitis of left leg, Venous stasis ulcers Instructions Patient Instructions: Cellulitis Discharge ED Provider: Haider Ross General Adult [facility] General Chief complaint: Wound/Laceration Stated complaint: Pain Time Seen by Provider: 05/06/22 19:00 Mode of Arrival: EMS Source of Information: Patient Limitations: No Limitations Description of Symptoms (Recalled from ER Triage Doc. by RN): c/o wound on left leg that he has had for 3 years but has gotten more painful and having odor and drainage the last 2 weeks. Suppose to fu with to see a surgeon. History of Present Illness HPI narrative: This is a 47-year-old male presented to the emergency department with a chronic wound ulceration. Patient been seen numerous times for this before in the past. He was recently seen last week and he was placed on antibiotics as well as analgesics. Patient states that the pain is continued since then. He has been taking his pain medication at home. He denies any fevers or chills. Not have any discharge. Some mild redness. Denies any headache or change in vision. No focal weakness. Abdominal pain or vomiting or diarrhea. Related Data Home Medications Medication Instructions Recorded Confirmed metoprolol succinate 25 mg 25 mg PO DAILY High blood pressure 11/16/21 04/26/22 tablet,extended release 24 hr lisinopril 10 1 tab PO DAILY Hypertension 11/17/21 04/26/22 mg-hydrochlorothiazide 12.5 mg tablet ibuprofen 800 mg tablet 800 mg PO TIDP PRN Moderate Pain 12/11/21 04/26/22 Previous Rx's Medication Instructions Recorded albuterol sulfate 90 mcg/actuation 2 puff inhalation QIDP PRN 02/15/22 aerosol inhaler shortness of breath or wheezing #8.5 grams azithromycin 500 mg tablet 500 mg PO DAILY 3 days #3 tabs 02/15/22 potassium chloride 20 mEq 20 meq PO DAILY Supplement #90 tabs 02/15/22 tablet,extended release torsemide 20 mg tablet 20 mg PO DIRECTED Fluid #90 tabs 02/15/22 albuterol sulfate 90 mcg/actuation 2 inh inhalation Q8H PRN shortness 04/22/22 aerosol inhaler of breath or wheezing #8.5 grams aspirin 81 mg tablet,delayed 81 mg PO DAILY #10 tabs 04/22/22 release doxycycline hyclate 100 mg tablet 100 mg PO BID #20 ta
--- NOTE | 2022-05-06 21:38 | PC.NURSE ---
Patient advised that he does not have a ride home. States that he has a friend who gets off work at 2300 and can maybe come and get him at that time.
--- NOTE | 2022-05-06 21:52 | PC.NURSE ---
Called 3 numbers that pt has gave for family to pick him up, no answer to any of them and unable to leave voicemail d/t voicemail has not been set up yet . Pt given a sandwich and diet soda and urinal. He asks we continue to call, we will do so.
--- NOTE | 2022-05-06 22:15 | PC.NURSE ---
Patient was given a sandwich and drink and warm blanket while awaiting ride home.
--- NOTE | 2022-05-06 22:59 | PC.NURSE ---
Pt continues to wait for ride home. No needs or complaints voiced at this time.
--- NOTE | 2022-05-06 23:17 | PC.NURSE ---
call to family friend, Alley she is on her way to order picker/assembler patient
--- NOTE | 2022-05-06 23:33 | PC.NURSE ---
WOUND CLEANED WITH NS. PATTED DRY. DRY 4X4 PLACED AND SECURED WITH COBAN. PT TOLERATED WELL.
[2022-05-06 23:42] VITALS: BP 160/81; PULSE 89; RESP 18; TEMP 36.7; O2SAT 97
== END 2022-05-06 23:45 | disposition home or self-care (01) ==
PROVIDERS: Emergency Provider Emergency Medicine; PCP Family Medicine
DX: I83.028 Varicose veins of left lower extremity with ulcer other part of lower leg; L03.116 Cellulitis of left lower limb; Z91.19 Patient's noncompliance with other medical treatment and regimen; Z79.899 Other long term (current) drug therapy; I11.0 Hypertensive heart disease with heart failure; I50.9 Heart failure, unspecified; K74.60 Unspecified cirrhosis of liver; J44.9 Chronic obstructive pulmonary disease, unspecified; F14.11 Cocaine abuse, in remission; F15.11 Other stimulant abuse, in remission
CPT/HCPCS: 73590; 80048; 85025; 96365; 96366; 96375; 99284; J2405

== ENCOUNTER 2022-05-19 15:26 | Emergency (ER) | payer MEDICARE, OTHER, SELFPAY ==
[2022-05-19] VITALS (10 sets, daily range): BP systolic 133–178; BP diastolic 87–113; PULSE 84–116; RESP 16–20; TEMP 36.7; O2SAT 95–100; BMI 39.9
--- NOTE | 2022-05-19 15:48 | HMH.EDGENADL ---
Discharge Plan Disposition Patient Disposition: Home, Self-Care Condition: Fair Prescriptions Prescriptions: New levofloxacin 500 mg tablet 500 mg PO DAILY 10 Days Qty: 10 0RF clindamycin HCl 300 mg capsule 300 mg PO QID Qty: 40 0RF No Action torsemide 20 mg tablet 20 mg PO DIRECTED Qty: 90 3RF Rx Instructions: two tablets (40mg) every morning, one tablet (20mg) in the evening potassium chloride 20 mEq tablet extended release 20 meq PO DAILY Qty: 90 3RF albuterol sulfate 90 mcg/actuation HFA aerosol inhaler 2 puff IH QIDP PRN (Reason: shortness of breath or wheezing) Qty: 8.5 10RF gabapentin 600 mg tablet 600 mg PO TID Qty: 45 1RF hydrocodone-acetaminophen 7.5-325 mg tablet 1 tab PO HS PRN (Reason: pain) Qty: 30 0RF ibuprofen 800 MG tablet 800 mg PO TIDP PRN (Reason: Moderate Pain) albuterol sulfate 90 mcg/actuation HFA aerosol inhaler 2 inh inhalation Q8H PRN (Reason: shortness of breath or wheezing) Qty: 8.5 0RF aspirin 81 mg tablet,delayed release (DR/EC) 81 mg PO DAILY metoprolol succinate 25 MG tablet extended release 24 hr 25 mg PO DAILY lisinopril-hydrochlorothiazide 1 EACH tablet 1 tab PO DAILY Referrals Follow up/Referrals: Provider,Referral, MD [Referring] - See instructions Activity Restrictions/Add. Instructions Additional Instructions/Restrictions: Clean wounds with soap and water daily and bandage. Take antibiotics as prescribed. See Dr. Stanton in his office tomorrow. Clinical Impressions Clinical Impression: Venous stasis ulcer Instructions Patient Instructions: DI for Skin Abscess Discharge ED Provider: Haider Benedict General Adult HPI General Chief complaint: Skin/Abscess/Foreign Body Stated complaint: weakness Time Seen by Provider: 05/19/22 15:38 Mode of Arrival: EMS Limitations: No Limitations Description of Symptoms (Recalled from ER Triage Doc. by RN): PT WAS SEEN IN THE ER SEVERAL WEEKS AGO AND RECEIVED ANTIBIOTICS. HE WAS UNABLE TO TAKE THE ANTIBIOTICS AND DID NOT FOLLOW UP WITH HIS FAMILY DOCTOR. PT STATES HE FEELS LIKE HIS LEGS ARE NOW WORSE. DRESSINGS REMOVED. History of Present Illness HPI narrative: Patient arrives by ambulance complaining of skin infection . He has chronic ulcers of his lower legs, primarily left lower leg, for 3 years. He has had multiple visits to this emergency department for these ulcers, has also been seen at [facility] for the same. Review of records shows most recently seen in this emergency department 05/06/2022, prior to that 05/01/2022 by myself. Review of [facility] records via portal shows that he was admitted to their facility 03/27/2022 through 03/30/2022 for the same as well as congestive heart failure. Also noted is that he had a general surgery appointment scheduled for 05/23/2022 with a note that it had been canceled by the patient via phone. Diagnosed as having venous stasis ulcers. Patient states to me that he has been seeing his primary care provider Dr. Stanton, but has difficulty with transportation and has not been able to see him for at least the past month. He has not seen his primary care provider nor had any outpatient treatment, nor seen any specialists since his 2 most recent visits to this emergency department. He says at last PCP visit Dr. Stanton wanted to refer him to plastic surgery to see if he could have skin grafts and if not he would likely eventually need amputation of his leg. This is the same thing that he told me on 05/01/2022. Record review indicates his last appointment with Dr. Stanton was on 04/26/2022. He says he now has increased pain and increased drainage. He says he has felt feverish but has not taken his temperature. He says his last antibiotic was Bactrim prescribed at his most recent emergency department visit here, but he developed a rash on his hands after 1 dose and stopped taking it after that 1 dose. No antibio
--- NOTE | 2022-05-19 15:58 | XR_ITS ---
FINAL REPORT CLINICAL HISTORY: open wounds COMPARISON: MRI dated December 10, 2021 FINDINGS: Two views of the left tibia-fibula demonstrate no acute fracture or dislocation. The joint spaces appear normal. The visualized bony structures are well aligned. There are plantar calcaneal spurs. There is a sizable anterior soft tissue defect in the lower leg. There are no bony erosions. IMPRESSION: Redemonstration of sizable soft tissue defect in the anterior lower leg. No bony erosions. Reviewed, Interpreted and Dictated by Claudio Kuhn III, MD Transcribed by Anmol Orozco Authenticated and [facility]
[2022-05-19 16:40] LABS: Basophils # 0.1 K/mm3 (0-0.2); Basophils % 0.7 % (0.1-2.0); Eosinophils # 0.3 K/mm3 (0.0-0.4); Eosinophils % 4.8 % (0.1-12.0); Hemoglobin 11.4 g/dL (14.1-18.0); Lymphocytes # 1.3 K/mm3 (0.7-4.5); Lymphocytes % 20.7 % (10-50); Mean Corpuscular HGB Conc 31.8 g/dL (31.8-35.4); Mean Corpuscular Hemoglobin 32.7 pg (27.0-31.2); Mean Corpuscular Volume 102.9 fl (80-94); Mean Platelet Volume 8.4 fl (7.4-10.4); Monocytes # 0.4 K/mm3 (0.1-1.0); Monocytes % 6.8 % (1.7-9.3); Neutrophils # 4.1 K/mm3 (1.8-7.8); Neutrophils % 66.9 % (37.0-80.0); Platelet Count 129 K/mm3 (142-424); Red Cell Distribution Width 17.7 % (11.5-17.5); White Blood Count 6.1 K/mm3 (4.8-10.8)
[2022-05-19 16:48] LABS: Chloride 100 mmol/L (98-107); Potassium 3.7 mmoL/L (3.5-5.1); Sodium 135 mmol/L (136-145)
[2022-05-19 16:51] LABS: Anion Gap 8.7 mEq/L (5-15); Blood Urea Nitrogen 9 mg/dl (9-20); Calcium 7.7 mg/dl (8.4-10.2); Carbon Dioxide 30 mmol/L (22.0-30.0); Creatinine Clearance Estimated 258 mL/min (50-200); Estimated Glomerular Filt Rate 143 ml/min (>60); GFR (African American) 173 ML/MIN (>60); Glucose 106 mg/dl (74-100)
[2022-05-19 16:52] LABS: Lactic Acid 1.5 mmol/L (0.7-2.1)
[2022-05-19 16:57] LABS: C-Reactive Protein 19.1 mg/L (0-4)
[2022-05-19 17:06] LABS: Erythrocyte Sedimentation Rate 53 mm/hr (0-15)
--- NOTE | 2022-05-19 17:59 | PC.NURSE ---
at the bedside
--- NOTE | 2022-05-19 18:04 | PC.NURSE ---
LOWER EXTREMITY WOUNDS CLEANED AND PATTED DRY. DRY DRESSINGS PLACED. PT TOLERATED WELL.
--- NOTE | 2022-05-19 18:05 | PC.NURSE ---
DISCUSSED WITH PATIENT IMPORTANCE OF KEEPING FOLLOW UP APPOINTMENTS WITH WOUND CARE AND HIS PRIMARY MD.
--- NOTE | 2022-05-19 20:17 | PC.NURSE ---
DISCUSSED WITH PATIENT APPOINTMENT WITH PCP TOMORROW. FAMILY STATES THEY WILL BE ABLE TO GET HIM TO THE APPOINTMENT.
== END 2022-05-19 20:20 | disposition home or self-care (01) ==
PROVIDERS: Emergency Provider Emergency Medicine; PCP Family Medicine
DX: L89.511 Pressure ulcer of right ankle, stage 1 (principal); L89.894 Pressure ulcer of other site, stage 4; L08.9 Local infection of the skin and subcutaneous tissue, unspecified; B96.5 Pseudomonas (aeruginosa) (mallei) (pseudomallei) as the cause of diseases classified elsewhere; B96.1 Klebsiella pneumoniae [K. pneumoniae] as the cause of diseases classified elsewhere; Z16.39 Resistance to other specified antimicrobial drug; Z91.199 Patient's noncompliance with other medical treatment and regimen due to unspecified reason; Z79.82 Long term (current) use of aspirin; Z79.899 Other long term (current) drug therapy; Z88.6 Allergy status to analgesic agent; Z88.1 Allergy status to other antibiotic agents; I10 Essential (primary) hypertension; J44.9 Chronic obstructive pulmonary disease, unspecified
CPT/HCPCS: 73590; 80048; 83605; 85025; 85651; 86140; 87040; 87070; 87186; 87205; 96365; 96366; 96367; 99284; J1956

== ENCOUNTER → 2022-06-03 15:00 | Outpatient (CLI) | payer MEDICARE, SELFPAY ==
[2022-06-03 17:57] LABS: Barbiturates Screen,Urine Negative ng/ml (<200)
[2022-06-03 17:58] LABS: Benzodiazepines Screen,Urine Negative ng/ml (<200); Cannabinoid Screen,Urine Negative ng/ml (<50)
[2022-06-03 17:59] LABS: Cocaine Screen,Urine Negative ng/ml (<300)
[2022-06-03 18:00] LABS: Methadone Screen,Urine Negative ng/ml (<300); Opiate Screen,Urine Negative ng/ml (<300)
[2022-06-03 18:03] LABS: Phencyclidine Screen,Urine Negative ng/ml (<25)
[2022-06-03 18:20] LABS: Amphetamine/Metha Screen,Urine Positive ng/ml (<1000)
== END ==
PROVIDERS: PCP Family Medicine; Visit Provider Family Medicine
DX: G89.4 Chronic pain syndrome (principal)
CPT/HCPCS: 80305

== ENCOUNTER 2022-06-19 03:55 | Inpatient (IN) | payer MEDICARE, OTHER, SELFPAY ==
[2022-06-19] VITALS (47 sets, daily range): BP systolic 90–155; BP diastolic 50–108; PULSE 68–201; RESP 6–43; TEMP 36.5–39.4; O2SAT 40–100; BMI 38.0; BMI 40.4
--- NOTE | 2022-06-19 03:40 | XR_ITS ---
PROCEDURE INFORMATION: Exam: XR Chest Exam date and time: 06/19/2022 5:33 AM Age: 47 years old Clinical indication: Device placement; Ett placement (vent status); Additional info: AMS, et tube placement TECHNIQUE: Imaging protocol: Radiologic exam of the chest. Views: 1 view. COMPARISON: CR XR CHEST PORTABLE 01/30/2022 1:28 PM FINDINGS: Tubes, catheters and devices: Endotracheal tube with tip 3.5 cm above the twan. Possible tube or stent overlying the liver. Lungs: Unremarkable. No consolidation. Pleural spaces: Unremarkable. No pleural effusion. No pneumothorax. Heart/Mediastinum: Unremarkable. No cardiomegaly. Bones/joints: Unremarkable. IMPRESSION: 1. Endotracheal tube in situ. 2. No acute chest pathology. 3. Possible tube or stent overlying the liver. Clinical correlation recommended.
--- NOTE | 2022-06-19 03:46 | CT_ITS ---
PROCEDURE INFORMATION: Exam: CT Head Without Contrast Exam date and time: 06/19/2022 10:38 AM Age: 47 years old Clinical indication: Altered mental status/memory loss. TECHNIQUE: Imaging protocol: Computed tomography of the head without contrast. Radiation optimization: All CT scans at this facility use at least one of these dose optimization techniques: automated exposure control; mA and/or kV adjustment per patient size (includes targeted exams where dose is matched to clinical indication); or iterative reconstruction. COMPARISON: No relevant prior studies available. FINDINGS: Brain: There is a lacunar infarct adjacent to the anterior horn of the left lateral ventricle, age-indeterminate. Cerebral ventricles: No ventriculomegaly. Paranasal sinuses: There is a retention cyst/polyp in the right maxillary sinus. Mastoid air cells: Visualized mastoid air cells are well aerated. Bones/joints: Unremarkable. No acute fracture. Soft tissues: Unremarkable. Other findings: There is mild sinus disease. IMPRESSION: There is a lacunar infarct adjacent to the anterior horn of the left lateral ventricle, age-indeterminate. If an acute infarct is a clinical concern, follow-up MRI with diffusion imaging is recommended.
--- NOTE | 2022-06-19 03:50 | ECG_ITS ---
APPROVED REPORT Exam: Resting ECG HR:113 bpm ECG Measurements Heart Rate 113 AXES AR 159 P 76 QRSd 104 QRS 49 QT 367 T 76 QTc 434 Conclusion SINUS TACHYCARDIA WITH OCCASIONAL VENTRICULAR PREMATURE COMPLEXES WITH OCCASIONAL SUPRAVENTRICULAR PREMATURE COMPLEXES MODERATE ST DEPRESSION [0.05+ mV ST DEPRESSION] ABNORMAL ECG UNCONFIRMED REPORT Electronically signed by : Wilfredo Muñoz MD 06/20/2022 21:41:14
--- NOTE | 2022-06-19 04:04 | HMH.EDAMS ---
Discharge Plan Disposition Chief Complaint: Altered Mental Status Discharge ED Provider: Soha Gutierrez Altered Mental Status HPI General Chief Complaint: Altered Mental Status Stated Complaint: AMS Time Seen by Provider: 06/19/22 04:00 History of Present Illness HPI narrative: 47-year-old male with unknown PMH who presents via EMS with altered mental status. Per EMS, patient has been altered intermittently since yesterday morning. Little information is known but he is homeless and has chronic lower extremity wounds/pain. EMS gave 2 mg Narcan in route without change in his mental status. Glucose 116. On arrival here, patient is not following commands. He has a known history of drug use. No other information is known at this time. Related Data Home Medications Medication Instructions Recorded Confirmed metoprolol succinate 25 mg 25 mg PO DAILY High blood pressure 11/16/21 06/19/22 tablet,extended release 24 hr ibuprofen 800 mg tablet 800 mg PO TIDP PRN Moderate Pain 12/11/21 06/19/22 aspirin 81 mg tablet,delayed 81 mg PO DAILY Blood thinner 05/19/22 06/19/22 release fluticasone fur. 200 mcg-umeclid 1 inh inhalation DAILY COPD 06/03/22 06/19/22 62.5 mcg-vilant 25 mcg inhalat.powder (Trelegy Ellipta) lactulose 10 gram/15 mL oral 45 ml PO TID Supplement 06/03/22 06/19/22 solution lisinopril 20 mg tablet 20 mg PO DAILY htn 06/03/22 06/19/22 spironolactone 100 mg tablet 100 mg PO DAILY Emphysema 06/03/22 06/19/22 cefdinir 300 mg capsule 300 mg PO BID Infection 06/19/22 06/19/22 nystatin 100,000 unit/mL oral 100,000 unit buccal TID Infection 06/19/22 06/19/22 suspension tetracycline 500 mg capsule 500 mg PO BID Infection 06/19/22 06/19/22 Previous Rx's Medication Instructions Recorded potassium chloride 20 mEq 20 meq PO DAILY Supplement #90 tabs 02/15/22 tablet,extended release torsemide 20 mg tablet 20 mg PO DIRECTED Fluid #90 tabs 02/15/22 albuterol sulfate 90 mcg/actuation 2 inh inhalation Q8H PRN shortness 04/22/22 aerosol inhaler of breath or wheezing #8.5 grams gabapentin 600 mg tablet 600 mg PO TID PAIN #45 tabs 06/03/22 hydrocodone 7.5 mg-acetaminophen 1 tab PO DAILY PRN pain #10 tabs 06/03/22 325 mg tablet Allergies Allergy/AdvReac Type Severity Reaction Status Date / Time codeine Allergy Severe Anaphylaxis Verified 05/20/22 13:20 guaifenesin [From Mucinex] Allergy Severe SWELLS Verified 05/20/22 13:20 ketorolac [From Toradol] Allergy Severe Difficulty Verified 05/20/22 13:20 Swallowing sulfamethoxazole AdvReac Intermediate Rash Verified 05/20/22 13:20 [From Bactrim] trimethoprim [From Bactrim] AdvReac Intermediate Rash Verified 05/20/22 13:20 PFSH PFSH Medical History Chronic pain Cirrhosis COPD (chronic obstructive pulmonary disease) Hypertension Family History Other Heart disease Social History Smoking Status: Current every day smoker tobacco type: smokeless tobacco second hand exposure: Yes alcohol intake: former substance use type: crack/cocaine and methamphetamine current occupational status: disabled Travel in the last 8 weeks: None household members: friend(s) housing: house current occupation: unknown current occupational exposures/hazards: No caffeine: Yes ROS Obtained: Yes unobtainable due to mental status Physical Exam General General appearance: obtunded Comment: ill appearing Head Head exam: normocephalic Eye Eye exam: Present normal appearance, PERRL and EOMI ENT ENT exam: Present mucous membranes dry and other (tongue protruding from mouth, crusting around his mouth) Neck Neck exam: Present normal inspection Chest Chest inspection: Present normal inspection and symmetric chest wall rise Respiratory Respiratory exam: Present normal lung sounds bilaterally
[2022-06-19 04:22] LABS: Basophils % 0.1 % (0.1-2.0); Hematocrit 38.6 % (42.0-52.0); Hemoglobin 12.3 g/dL (14.1-18.0); Lymphocytes # 0.5 K/mm3 (0.7-4.5); Lymphocytes % 4.2 % (10-50); Mean Corpuscular HGB Conc 31.7 g/dL (31.8-35.4); Mean Corpuscular Hemoglobin 32.6 pg (27.0-31.2); Mean Corpuscular Volume 102.6 fl (80-94); Mean Platelet Volume 10.4 fl (7.4-10.4); Monocytes # 0.3 K/mm3 (0.1-1.0); Monocytes % 2.8 % (1.7-9.3); Neutrophils # 10.7 K/mm3 (1.8-7.8); Neutrophils % 92.8 % (37.0-80.0); Platelet Count 59 K/mm3 (142-424); Red Blood Count 3.76 M/mm3 (4.60-6.20); Red Cell Distribution Width 16.6 % (11.5-17.5); White Blood Count 11.5 K/mm3 (4.8-10.8)
[2022-06-19 04:25] LABS: Microscopic, Urine URINE MICROSCOPIC (MICROSCOPIC)
[2022-06-19 04:29] LABS: Appearance,Urine CLEAR (Clear); Blood, Urine 3+ (Negative); Color,Urine DK YELLOW (Yellow); Glucose,Urine (UA) Negative (Negative); Ketones,Urine Negative (Negative); Leukocyte Esterase,Urine Negative (Negative); Nitrate,Urine Negative (Negative); Protein,Urine TRACE (Negative)
[2022-06-19 04:29] LABS: MANUAL DIFFERENTIAL MANUAL DIFFERENTIAL (MANUAL DIFF)
[2022-06-19 04:31] LABS: Chloride 99 mmol/L (98-107); Potassium 3.6 mmoL/L (3.5-5.1); Sodium 136 mmol/L (136-145)
[2022-06-19 04:32] LABS: Bilirubin,Urine 1+ (Negative)
[2022-06-19 04:33] LABS: Alanine Aminotransferase 58 U/L (12-78); Aspartate Amino Transferase 118 U/L (17-59); Blood Urea Nitrogen 27 mg/dl (9-20); Estimated Glomerular Filt Rate 71 ml/min (>60); GFR (African American) 86 ML/MIN (>60)
[2022-06-19 04:33] LABS: Amorphous Sediment,Urine Trace /lpf; RBC,Urine 20-50 #/hpf (0-3)
[2022-06-19 04:34] LABS: Albumin Level 2.7 g/dl (3.5-5.0); Albumin/Globulin Ratio 0.7 (1.1-1.8); Alkaline Phosphatase 120 U/L (38-126); Anion Gap 14.6 mEq/L (5-15); Bilirubin,Total 3.9 mg/dl (0.2-1.3); Calcium 8.3 mg/dl (8.4-10.2); Carbon Dioxide 26 mmol/L (22.0-30.0); Globulin 4.1 g/dL (1.3-3.2); Glucose 111 mg/dl (74-100); Magnesium 1.5 mg/dl (1.6-2.3); Total Protein,Serum 6.8 g/dl (6.3-8.2)
[2022-06-19 04:35] LABS: Anisocytosis 1+; Ethyl Alcohol < 10 mg/dl (0-10); Hypochromasia 1+; Lymphocytes % 6 % (10-50); Macrocytosis 2+; Neutrophils % 70 % (42-76); Platelet Estimate Slight Decrease; Total Cells Counted 100
[2022-06-19 04:36] LABS: Acetaminophen < 10 ug/ml (10-30); Lactic Acid 5.6 mmol/L (0.7-2.1); Salicylate < 1.0 mg/dL (2.0-20.0)
--- NOTE | 2022-06-19 04:36 | PC.NURSE ---
Dr. Gutierrez notified on critical lactic
[2022-06-19 04:40] LABS: Barbiturates Screen,Urine Negative ng/ml (<200)
[2022-06-19 04:41] LABS: Amphetamine/Metha Screen,Urine Positive ng/ml (<1000); Benzodiazepines Screen,Urine Negative ng/ml (<200)
[2022-06-19 04:42] LABS: Cannabinoid Screen,Urine Negative ng/ml (<50)
[2022-06-19 04:43] LABS: Cocaine Screen,Urine Negative ng/ml (<300); Methadone Screen,Urine Negative ng/ml (<300)
[2022-06-19 04:44] LABS: Opiate Screen,Urine Negative ng/ml (<300)
[2022-06-19 04:45] LABS: Phencyclidine Screen,Urine Negative ng/ml (<25)
[2022-06-19 04:49] LABS: VBG Base Excess -1.3 mmol/L (-2.4-2.3); VBG HCO3 23.9 mmol/L (23-30); VBG Oxygen Saturation 84.2 % (50-70); VBG PCO2 41.8 mmol/L (35-51); VBG PH 7.38 mmol/L (7.31-7.41); VBG PO2 51.9 mmol/L (28-40); VBG Total CO2 25.2 mmol/L (23-27)
--- NOTE | 2022-06-19 04:54 | PC.NURSE ---
Anesthesia paged to assist w/ lumbar puncture at this time
[2022-06-19 05:04] LABS: Creatine Kinase 363 U/L (55-170)
[2022-06-19 05:05] LABS: Ammonia 36 umol/L (9-30)
[2022-06-19 05:12] LABS: Thyroid Stimulating Hormone 1.34 uIU/mL (0.465-4.68)
[2022-06-19 05:14] LABS: CKMB Relative Index 0.6 U/L (0-4.0); Creatine Kinase MB 2.1 ng/ml (0.0-2.03)
[2022-06-19 05:17] LABS: Troponin I 0.09 ng/ml (0.00-0.034)
--- NOTE | 2022-06-19 05:45 | ECG_ITS ---
APPROVED REPORT Exam: Resting ECG HR:189 bpm ECG Measurements Heart Rate 189 AXES QRSd 110 QRS 68 QT 229 T 218 QTc 326 Conclusion ATRIAL FIBRILLATION WITH RAPID VENTRICULAR RESPONSE ST DEVIATION AND MODERATE T-WAVE ABNORMALITY, CONSIDER LATERAL ISCHEMIA [-0.1+ mV T-WAVE IN I/aVL/V5/V6] ST DEVIATION AND MODERATE T-WAVE ABNORMALITY, CONSIDER INFERIOR ISCHEMIA [-0.1+ mV T-WAVE IN II/aVF] CRITICAL TEST RESULT UNCONFIRMED REPORT Electronically signed by : Wilfredo Muñoz MD 06/20/2022 21:41:00
--- NOTE | 2022-06-19 05:51 | PC.NURSE ---
titrated Propofol to 30mcg
--- NOTE | 2022-06-19 06:00 | PC.NURSE ---
Late Entry: @ 0500 - ER s/w hospitalistNorman. She came to beside and s/w ER MD. They agree to admit pt after intubated. @0515- RT at beside, prepping room and setting up. @0518- MD ordered for intubation: Etomidate 30mg and Rocnuronium 120mg, admin by MD. VS: BP 136/87, sat 100% on NRB, HR 140, RR28. @0524- ER MD began to intubate pt with glydoscope. @0526- 1st attempt unsuccessful. MD ordered order to bag pt till 95%. Sat had dropped to 74%. BP 164/99. HR 150 @0530- MD ordered a 2nd dose of Etomidate 30mg IVP. @0534- Successful intuabtion- 21 @ gum, per CXR MD ordered to pull back 2 cm, pulled back to 23@ gum or 25 @ lip. MD ordered propofol for sedation. Fentanyl 100mcg IVP for pain control d/t HR increased to 190-220. verbal order for Ativan 2mg IVP and Versed 2mg IVP. 0540- VS: BP 135/87, HR 177, sat 100%- mechanical vent @ 0550- s/w Bro Blount, reducing salon attendant pharmacy, ok to give fentanyl gtt. Notified paint department supervisor to pull more fentanyl d/t only 1 vial in ER stock. SURINDER RN pulled from ICU.
--- NOTE | 2022-06-19 06:07 | EXP.HP ---
History of Present Illness *Admission Date: 06/19/22 *Reason for visit:: Altered Mental Status *History of present illness: Mr. Vinod Ragland is a 47-year-old male with an unknown past medical history. He was brought into the ER by EMS due to altered mental status. In the Field he was given Narcan with no response. He has a reported history of drug abuse. In the ER, urine drug screen was positive for Methamphetamines, he was tachycardic with a HR of 119, respiratory rate was 32, he was febrile at 103. Lactate was elevated at 5.6. GCS was 8. He was unresponsive to commands and agitated. In the ER, he was intubated for airway protection, cultures were drawn. He was started on broad spectrum antibiotics. He was noted to have wounds with drainage to bilateral lower extremities. He will be admitted with initial impression: Drug Overdose and Sepsis. He will be transferred from the ER to the ICU. He was given a fluid bolus per sepsis protocol in the ER and started on broad spectrum antibiotics. Anesthesia has been consulted to perform LP. Patient intubated and sedated on my exam. Unable to obtain any further history. No family at bedside that is available as questions 2. [facility] Medical History Chronic pain Cirrhosis COPD (chronic obstructive pulmonary disease) Hypertension Family History Heart disease Social History Smoking Status: Current every day smoker tobacco type: smokeless tobacco second hand exposure: Yes alcohol intake: former substance use type: crack/cocaine and methamphetamine current occupational status: disabled Travel in the last 8 weeks: None household members: friend(s) housing: house current occupation: unknown current occupational exposures/hazards: No caffeine: Yes Review of Systems Review of Systems Review of systems:: unable to obtain Meds Home Medications and Allergies Home Medications Medication Instructions Recorded Confirmed Type metoprolol succinate 25 mg 25 mg PO DAILY High blood pressure 11/16/21 06/19/22 History tablet,extended release 24 hr ibuprofen 800 mg tablet 800 mg PO TIDP PRN Moderate Pain 12/11/21 06/19/22 History potassium chloride 20 mEq 20 meq PO DAILY Supplement #90 tabs 02/15/22 06/19/22 Rx tablet,extended release aspirin 81 mg tablet,delayed 81 mg PO DAILY Blood thinner 05/19/22 06/19/22 History release fluticasone fur. 200 mcg-umeclid 1 inh inhalation DAILY COPD 06/03/22 06/19/22 History 62.5 mcg-vilant 25 mcg inhalat.powder (Trelegy Ellipta) lactulose 10 gram/15 mL oral 45 ml PO TID CONSTIPATION 06/03/22 06/19/22 History solution lisinopril 20 mg tablet 20 mg PO DAILY High blood pressure 06/03/22 06/19/22 History spironolactone 100 mg tablet 100 mg PO DAILY FLUID 06/03/22 06/19/22 History albuterol sulfate 90 mcg/actuation 2 puff inhalation QIDP PRN 06/19/22 06/19/22 History aerosol inhaler Shortness Of Breath gabapentin 600 mg tablet 600 mg PO TID NEUROPATHY 06/19/22 06/19/22 History hydrocodone 7.5 mg-acetaminophen 1 tab PO DAILYP PRN MODERATE TO 06/19/22 06/19/22 History 325 mg tablet SEVERE PAIN nystatin 100,000 unit/mL oral 100,000 unit buccal TID Infection 06/19/22 06/19/22 History suspension torsemide 20 mg tablet 20 mg PO 1600 Fluid 06/19/22 06/19/22 History torsemide 20 mg tablet 40 mg PO AM Fluid 06/19/22 06/19/22 History New Prescriptions to Start Prescriptions: Allergies Allergy/AdvReac Type Severity Reaction Status Date / Time codeine Allergy Severe Anaphylaxis Verified 05/20/22 13:20 guaifenesin [From Mucinex] Allergy Severe SWELLS Verified 05/20/22 13:20 ketorolac [From Toradol] Allergy Severe Difficulty Verified 05/20/22 13:20 Swallowing sulfamethoxazole AdvReac Intermediate Rash Verified 05/20/22 13:20 [From Bactrim] trimeth
--- NOTE | 2022-06-19 07:03 | PC.NURSE ---
RT at BS
[2022-06-19 07:21] LABS: ABG HCO3 23.6 mmhg (22.0-26.0); ABG Oxygen Saturation 100 % (90-100); ABG PCO2 38.3 mmhg (35.0-45.0); ABG PH 7.41 mmol/L (7.35-7.45); ABG PO2 476.9 mmhg (80-100); ABG TCO2 24.8 mmhg (23-27)
[2022-06-19 07:23] LABS: Oxygen 100% %; Tidal Volume 450
[2022-06-19 07:24] LABS: Allen's Test Patient Unable; PEEP 5; Source Left Radial; Vent Rate 18
[2022-06-19 07:34] LABS: Coronavirus 19, PCR Not Detected (NotDetected); Influenza A, PCR Not Detected (NotDetected); Influenza B, PCR Not Detected (NotDetected)
[2022-06-19 07:48] LABS: INR 1.94 (0.9-1.1); Prothrombin Time 20.2 seconds (10.1-12.5)
--- NOTE | 2022-06-19 07:51 | PC.NURSE ---
Called report to Chloé Carias RN. Room not cleaned yet. Stat clean not completed yet. Report also given to Chloé Dalton RN in ER
[2022-06-19 07:53] LABS: Lactic Acid 3.3 mmol/L (0.7-2.1)
--- NOTE | 2022-06-19 08:00 | PC.NURSE ---
Judith at the bedside for LP
[2022-06-19 08:18] LABS: Reflex Lactic Add Lactic Reflex
--- NOTE | 2022-06-19 08:19 | PC.NURSE ---
Spinal fluid labeled and walked to lab per Bert matias
--- NOTE | 2022-06-19 08:25 | PC.NURSE ---
propofol and fentanyl drip titrated per protocol
--- NOTE | 2022-06-19 08:29 | PC.NURSE ---
Spoke with Dr Whyte, he suggested making a team effort of getting the pt to CT and then on to MedSurg floor. relayed this to pt's nurse Mary Paredes. She has discussed transport with [employer], Sarah to facilitate this.
--- NOTE | 2022-06-19 08:33 | DIET.NUTRFU ---
Addendum entered by Priscilla Gonzalez RD, LD 06/20/22 14:58: Still waiting for patient to respond to SBT. Provider trying to reach family to determine patient's wishes. Will continue to follow for nutritional needs. If unable to extubate today, would recommended starting TF: Pulmocare at 20ml/hr with goal rate of 60ml/hr to provide 100% of needs at 1440ml formula= 2160kcal/90gm protein and 1130ml/day fluid. Determine flush based on IVF running at that time. Propofol was discontinued as of 5am, Lactated ringers discontinued 06/19. Lasix provided today for global edema. Albumin depleted at 2.0, possible due to fluid status. AST elevated at 74H, hydration WNL. Urine output good via so 2265ml today so fair as result of lasix. Will continue to monitor status. If extubated, nursing/ACCURACY EXPERT to evaluate after 24 hours for safe oral diet. Addendum entered by Priscilla Gonzalez RD, LD 06/20/22 08:59: Patient has multiple areas of skin breakdown to leg, wound care is providing tx. He also has excoriation to bottom d/t laying in bowel movements. He would benefit from vitamin C and zinc along with prostat to aid in healing. Trial of extubation today, if not able to extubate will recommend appropriate tubefeeding to best meet nutritional needs. Original Note: RD consulted for low isidoro scale. He is currently NPO and receiving IVF and propofol for minimum caloric intake. Will continue to monitor, if unable to provide oral diet enteral nutrition maybe beneficial
--- NOTE | 2022-06-19 08:37 | EXP.PHA.CONS ---
Pharmacy Consult Date: 06/19/22 Time: 08:37 Referring provider: DR GONZALEZ Reason for Consult:: VANCOMYCIN DOSING CONSULT Allergies Allergy/AdvReac Type Severity Reaction Status Date / Time codeine Allergy Severe Anaphylaxis Verified 05/20/22 13:20 guaifenesin [From Mucinex] Allergy Severe SWELLS Verified 05/20/22 13:20 ketorolac [From Toradol] Allergy Severe Difficulty Verified 05/20/22 13:20 Swallowing sulfamethoxazole AdvReac Intermediate Rash Verified 05/20/22 13:20 [From Bactrim] trimethoprim [From Bactrim] AdvReac Intermediate Rash Verified 05/20/22 13:20 Home Medications Medication Instructions Recorded Confirmed Type metoprolol succinate 25 mg 25 mg PO DAILY High blood pressure 11/16/21 06/19/22 History tablet,extended release 24 hr ibuprofen 800 mg tablet 800 mg PO TIDP PRN Moderate Pain 12/11/21 06/19/22 History potassium chloride 20 mEq 20 meq PO DAILY Supplement #90 tabs 02/15/22 06/19/22 Rx tablet,extended release torsemide 20 mg tablet 20 mg PO DIRECTED Fluid #90 tabs 02/15/22 06/19/22 Rx albuterol sulfate 90 mcg/actuation 2 inh inhalation Q8H PRN shortness 04/22/22 06/19/22 Rx aerosol inhaler of breath or wheezing #8.5 grams aspirin 81 mg tablet,delayed 81 mg PO DAILY Blood thinner 05/19/22 06/19/22 History release fluticasone fur. 200 mcg-umeclid 1 inh inhalation DAILY COPD 06/03/22 06/19/22 History 62.5 mcg-vilant 25 mcg inhalat.powder (Trelegy Ellipta) gabapentin 600 mg tablet 600 mg PO TID PAIN #45 tabs 06/03/22 06/19/22 Rx hydrocodone 7.5 mg-acetaminophen 1 tab PO DAILY PRN pain #10 tabs 06/03/22 06/19/22 Rx 325 mg tablet lactulose 10 gram/15 mL oral 45 ml PO TID Supplement 06/03/22 06/19/22 History solution lisinopril 20 mg tablet 20 mg PO DAILY htn 06/03/22 06/19/22 History spironolactone 100 mg tablet 100 mg PO DAILY Emphysema 06/03/22 06/19/22 History cefdinir 300 mg capsule 300 mg PO BID Infection 06/19/22 06/19/22 History nystatin 100,000 unit/mL oral 100,000 unit buccal TID Infection 06/19/22 06/19/22 History suspension tetracycline 500 mg capsule 500 mg PO BID Infection 06/19/22 06/19/22 History New Prescriptions to Start Prescriptions: Height: 1.83 m Weight: 127.006 kg Laboratory Results:: Laboratory Results - last 24 hr 06/19/22 04:03: SARS-CoV-2 (PCR) Not detected, Influenza A Untype (PCR) Not detected, Influenza Type B (PCR) Not detected 06/19/22 04:10: WBC 11.5 H, RBC 3.76 L, Hgb 12.3 L, Hct 38.6 L, MCV 102.6 H, MCH 32.6 H, MCHC 31.7 L, RDW 16.6, Plt Count 59 L, MPV 10.4, Neut % (Auto) 92.8 H, Lymph % (Auto) 4.2 L, [place] % (Auto) 2.8, Eos % (Auto) 0.0 L, Baso % (Auto) 0.1, Neut # (Auto) 10.7 H, Lymph # (Auto) 0.5 L, [place] # (Auto) 0.3, Eos # (Auto) 0.0, Baso # (Auto) 0.0, Total Counted 100, Neutrophils % (Manual) 70, Band Neutrophils % 24.0 H, Lymphocytes % (Manual) 6 L, Platelet Estimate Slight decrease, Hypochromasia 1+, Anisocytosis 1+, Macrocytosis 2+ 06/19/22 04:10: Sodium 136, Potassium 3.6, Chloride 99, Carbon Dioxide 26, Anion Gap 14.6, BUN 27 H, Creatinine 1.10, Estimated GFR 71, Est GFR ( Amer) 86, Glucose 111 H, Calcium 8.3 L, Magnesium 1.5 L, Total Bilirubin 3.9 H, AST 118 H, ALT 58, Alkaline Phosphatase 120, Total Protein 6.8, Albumin 2.7 L, Globulin 4.1 H, Albumin/Globulin Ratio 0.7 L, TSH 1.34, Salicylates < 1.0 L, Acetaminophen < 10 L 06/19/22 04:10: Lactate 5.6 H 06/19/22 04:10: Plasma/Serum Alcohol < 10 06/19/22 04:10: VBG pH 7.38, VBG pCO2 41.8, VBG pO2 51.9 H, VBG HCO3 23.9, VBG Total CO2 25.2, VBG O2 Saturation 84.2 H, VBG Base Excess -1.3 06/19/22 04:10: PT 20.2 H, INR 1.94 H 06/19/22 04:22: Urine Opiates Screen Negative, Urine Methadone Screen Negative, Ur Barbituates Screen Negative, Ur Phencyclidine Scrn Negative, Ur Amphetamines Screen Positive H, U Benzodiazepines Scrn Negative, Urine Cocaine Screen Negative, U Marijuana (THC) Screen Negative 06/19/22 04:22: Urine Color Dk yellow, Urine Appearance Clear, Urine pH 6.0, Ur Specif
--- NOTE | 2022-06-19 09:52 | PC.NURSE ---
PT arrived to the floor by stretcher.
--- NOTE | 2022-06-19 10:54 | XR_ITS ---
PROCEDURE INFORMATION: Exam: XR Chest Exam date and time: 06/19/2022 11:13 AM Age: 47 years old Clinical indication: Ett placement. TECHNIQUE: Imaging protocol: Radiologic exam of the chest. Views: 1 view. COMPARISON: CR XR CHEST PORTABLE 06/19/2022 5:33 AM FINDINGS: Tubes, catheters and devices: There is an endotracheal tube with the tip at the level of the clavicles, approximately 3-4 cm above the twan. There is a nasogastric tube although the location of the tip cannot be confirmed on this x-ray. There are several EKG leads overlying the chest. Lungs: See Heart/Mediastinum finding. Pleural spaces: There is a small right pleural effusion. Heart/Mediastinum: There is cardiomegaly. There is prominence of the pulmonary vascular markings. These findings may represent congestive heart failure. Bones/joints: Unremarkable. IMPRESSION: 1. There is an endotracheal tube with the tip at the level of the clavicles, approximately 3-4 cm above the twan. 2. There is cardiomegaly. There is prominence of the pulmonary vascular markings. These findings may represent congestive heart failure. 3. There is a small right pleural effusion. 4. There is a nasogastric tube although the location of the tip cannot be confirmed on this x-ray.
--- NOTE | 2022-06-19 12:30 | PC.WOUNDNOTE ---
Stage I Initial skin assessments on arrival
--- NOTE | 2022-06-19 13:00 | EXP.SEPSISRE ---
[facility] Tissue Perfusion Eval Sepsis Re-Evaluation Performed: Yes Date Performed: 06/19/22 Time Performed: 10:30
[2022-06-19 13:05] LABS: Troponin I 0.09 ng/ml (0.00-0.034)
--- NOTE | 2022-06-19 13:46 | [facility].PHAINT1 ---
Pharmacy Intervention Comments: MEDICATION RECONCILIATION COMPLETE USING LIST FROM RECENT MD OFFICE VISITS AND EXTERNAL PHARMACY FILL HISTORY.
[2022-06-19 16:27] LABS: Chloride 102 mmol/L (98-107)
[2022-06-19 16:28] LABS: Potassium 3.8 mmoL/L (3.5-5.1); Sodium 135 mmol/L (136-145)
[2022-06-19 16:30] LABS: Blood Urea Nitrogen 36 mg/dl (9-20); Creatinine Clearance Estimated 86 mL/min (50-200); Estimated Glomerular Filt Rate 79 ml/min (>60); GFR (African American) 96 ML/MIN (>60)
[2022-06-19 16:31] LABS: Anion Gap 10.8 mEq/L (5-15); Calcium 7.8 mg/dl (8.4-10.2); Carbon Dioxide 26 mmol/L (22.0-30.0); Glucose 116 mg/dl (74-100)
[2022-06-19 16:53] LABS: Appearance,CSF Clear (Clear); Mononuclear WBCs,CSF 0 %; Polynuclear WBCs,CSF 0 %; Red Blood Cell,CSF 0 cells/uL (0); Volume,CSF 12 mL; White Blood Cell,CSF 2 cells/uL (0-5)
[2022-06-19 17:44] LABS: Basophils % 0.5 % (0.1-2.0); Eosinophils % 0.1 % (0.1-12.0); Hematocrit 32.3 % (42.0-52.0); Lymphocytes # 0.5 K/mm3 (0.7-4.5); Lymphocytes % 11.1 % (10-50); Mean Corpuscular HGB Conc 33.1 g/dL (31.8-35.4); Mean Corpuscular Hemoglobin 32.4 pg (27.0-31.2); Mean Corpuscular Volume 98.2 fl (80-94); Monocytes # 0.2 K/mm3 (0.1-1.0); Monocytes % 5.1 % (1.7-9.3); Neutrophils # 3.9 K/mm3 (1.8-7.8); Neutrophils % 83.2 % (37.0-80.0); Platelet Count 55 K/mm3 (142-424); Red Blood Count 3.29 M/mm3 (4.60-6.20); Red Cell Distribution Width 16.5 % (11.5-17.5); White Blood Count 4.7 K/mm3 (4.8-10.8)
[2022-06-19 17:55] LABS: Hemoglobin 10.7 g/dL (14.1-18.0)
--- NOTE | 2022-06-19 18:33 | PC.NURSE ---
Notified Colin in lab of order for FFP
--- NOTE | 2022-06-19 20:30 | PC.NURSE ---
unable to scan thawed unit of FFP, verified unit of FFP with Colin in lab; pre-blood vs documented in TAR, verified unit FFP with MATT Medina and both signed form
--- NOTE | 2022-06-19 20:54 | PC.NURSE ---
unit FFP complete, vss and charted in TAR, no reaction noted
--- NOTE | 2022-06-19 21:39 | PC.NURSE ---
changed propofol bottle and tubing
[2022-06-20] VITALS (55 sets, daily range): BP systolic 91–152; BP diastolic 52–102; PULSE 80–150; RESP 14–104; TEMP 36.6–38.4; O2SAT 95–100; BMI 89.5; BMI 40.6
[2022-06-20 04:58] LABS: Activated Partial Thrombo Time 35.5 seconds (22.8-30.6); INR 1.42 (0.9-1.1)
--- NOTE | 2022-06-20 05:00 | PC.NURSE ---
weaning sedation for sbt at 0600, held fentanyl drip (from 30mcg/hr) and decreased propofol to 20mcg/kg/min (from 40mcg/kg/min)
[2022-06-20 05:03] LABS: Alanine Aminotransferase 36 U/L (12-78); Albumin/Globulin Ratio 0.6 (1.1-1.8); Alkaline Phosphatase 81 U/L (38-126); Anion Gap 12.6 mEq/L (5-15); Aspartate Amino Transferase 74 U/L (17-59); Bilirubin,Total 2.4 mg/dl (0.2-1.3); Blood Urea Nitrogen 37 mg/dl (9-20); Calcium 7.7 mg/dl (8.4-10.2); Carbon Dioxide 28 mmol/L (22.0-30.0); Chloride 103 mmol/L (98-107); Creatinine Clearance Estimated 96 mL/min (50-200); Estimated Glomerular Filt Rate 90 ml/min (>60); GFR (African American) 109 ML/MIN (>60); Globulin 3.3 g/dL (1.3-3.2); Glucose 99 mg/dl (74-100); Potassium 3.6 mmoL/L (3.5-5.1); Sodium 140 mmol/L (136-145); Total Protein,Serum 5.3 g/dl (6.3-8.2)
[2022-06-20 05:08] LABS: Eosinophils # 0.1 K/mm3 (0.0-0.4); Hemoglobin 10.7 g/dL (14.1-18.0); Monocytes # 0.2 K/mm3 (0.1-1.0); White Blood Count 3.4 K/mm3 (4.8-10.8)
[2022-06-20 05:11] LABS: Vancomycin,Trough 20.8 ug/mL (5.0-10.0)
[2022-06-20 05:15] LABS: Basophils % 0.4 % (0.1-2.0); Eosinophils % 1.7 % (0.1-12.0); Hematocrit 33.3 % (42.0-52.0); Lymphocytes # 0.4 K/mm3 (0.7-4.5); Mean Corpuscular Hemoglobin 32.3 pg (27.0-31.2); Mean Corpuscular Volume 100.8 fl (80-94); Mean Platelet Volume 9.5 fl (7.4-10.4); Monocytes % 5.9 % (1.7-9.3); Neutrophils # 2.7 K/mm3 (1.8-7.8); Red Cell Distribution Width 16.7 % (11.5-17.5)
[2022-06-20 05:19] LABS: Platelet Count 45 K/mm3 (142-424)
--- NOTE | 2022-06-20 05:20 | PC.NURSE ---
notified Nayan with night watch of pt's critical vanc trough of 20.8, instructed to hold am dose and night watch will leave message for pharmacy for dosage changes today notified EFRAIN Austin of pt's critical platelet value of 45
--- NOTE | 2022-06-20 05:24 | PC.NURSE ---
decreased propofol to 10mcg/kg/min (from 20mcg/kg/min)
--- NOTE | 2022-06-20 06:00 | XR_ITS ---
PROCEDURE INFORMATION: Exam: XR Chest Exam date and time: 06/20/2022 3:47 AM Age: 47 years old Clinical indication: Device placement; Other: Intubation f/u; Additional info: Post intubation follow up TECHNIQUE: Imaging protocol: Radiologic exam of the chest. Views: 1 view. COMPARISON: CR XR CHEST PORTABLE 06/19/2022 11:13 AM FINDINGS: Tubes, catheters and devices: Endotracheal and feeding tubes. The endotracheal tube terminates 6.8 cm above the twan. Lungs: Interstitial prominence and mild airspace disease. Pleural spaces: Small suspected pleural effusions. Heart/Mediastinum: Cardiac silhouette upper limits of normal in size. Bones/joints: Mild degenerative change. IMPRESSION: 1. Endotracheal and feeding tubes. The endotracheal tube terminates 6.8 cm above the twan. 2. Additional findings as described above.
--- NOTE | 2022-06-20 06:01 | PC.NURSE ---
held propofol at this time for sbt
[2022-06-20 06:36] LABS: Phosphorous 2.6 mg/dl (2.5-4.5)
--- NOTE | 2022-06-20 08:15 | [facility].PTWOUND ---
Rehab Inpt Wound Evaluation Rehab IP Wound Evaluation Start: 06/19/22 15:23 Freq: ONCE Status: Active Protocol: Document 06/20/22 08:06 SHAE (Rec: 06/20/22 08:15 [id number]) Rehab PT Wound Assessment Patient Status Premedicated Prior to Dressing Change No Subjective Subjective This is the initial IP wound evaluation for Vinod Ragland. Pt is well known to wound care for chronic BLE wounds. Pt has been seen multiple times in OP and IP wound care and is chronically non- compliant w/ wound care and healthcare overall. Pt was admitted to [facility] w/ AMS, narcotic intoxication, and CT scan reveals new Lacunar infarct Wound Right Lower Medial Calf Wound Type Stasis Ulcer Wound Bed Appearance Dusky Red,Yellow,Slough Primary Dressing Medicated Gauze Pad Comment betadyne gauze Wound Secondary Dressing Type Unna Boot Dressing Change Patient Tolerance Tolerated Well Left Lower Medial Tam Wound Type Stasis Ulcer Is This a Chronic Wound Yes Wound Bed Appearance Dusky Red,Slough Surrounding Tissue Appearance Glenn,Bright Red Primary Dressing Medicated Gauze Pad Comment betadyne gauze Wound Secondary Dressing Type Unna Boot Left Lower Lateral Tam Wound Type Stasis Ulcer Wound Drainage Description Serosanguineous,Purulent Drainage Amount Moderate Drainage Odor Slight Odor Primary Dressing Medicated Gauze Pad Comment betadyne gauze Wound Secondary Dressing Type Unna Boot Plan/Recommendation Comment Wound care will continue to follow pt - unna boots changed Q72 or PRN if soiled - pt to need SNF placement and continued wound care s/p DC. Eval Complexity Eval Charge Codes 09048 - Moderate Complexity G-codes PT Current Status Other PT/OT Status PT Current Status Modifier CN-At least 100% impaired, limited or restricted PT Goal Status Other PT/OT Status PT Goal Status Modifer CN-At least 100% impaired, limited or restricted PHYSICIAN CERTIFICATION: I certify the specified therapy services for Davi
--- NOTE | 2022-06-20 09:42 | EXP.ACUTE.PN ---
Subjective *Date: 06/20/22 *Time: 13:40 Interval history: Patient stable on vent this morning. No acute events overnight. Tolerating minimal vent settings. Transition to spontaneous breathing trial this morning. Off of sedation since approximately 5 AM. No meaningful response on exam at this time. Initiating breath. Remains afebrile. Have been able to get a hold of patient's father this morning. Unable to assess review of systems due to obtundation. Medical Exam Vital signs and Labs for Last 24 Hours: Vital Signs Temp Pulse Pulse Resp BP BP BP 06/20/22 08:00 06/20/22 08:00 98.8 F 107 H 15 125/89 06/20/22 06:49 102 H 18 125/79 06/20/22 06:17 89 06/20/22 06:17 97 H 06/20/22 06:00 96 H 18 114/74 06/20/22 06:00 19 06/20/22 04:00 95 H 06/20/22 05:00 86 18 96/56 L 06/20/22 04:00 98.0 F 90 18 109/68 L 06/20/22 03:00 88 18 91/52 L 06/20/22 02:00 96 H 18 105/59 L 06/20/22 01:25 18 06/20/22 00:00 80 06/20/22 00:43 91 H 18 99/60 L 06/20/22 00:37 06/20/22 00:00 97.9 F 97 H 18 101/54 L 06/19/22 23:00 102 H 18 91/50 L 06/19/22 22:00 106 H 18 98/62 L 06/19/22 20:45 18 06/19/22 20:45 95 H 06/19/22 20:45 95 H 06/19/22 21:26 19 06/19/22 21:00 98.1 F 95 H 18 107/59 L 06/19/22 20:53 98.1 F 88 18 105/61 L 06/19/22 20:45 98.1 F 103 H 18 108/64 L 06/19/22 20:40 97.8 F 92 H 19 93/63 L 06/19/22 20:28 97.7 F 94 H 18 103/61 L 06/19/22 20:00 106 H 06/19/22 19:56 06/19/22 19:52 98.0 F 96 H 19 109/65 L 06/19/22 18:35 102 H 18 106/67 L 06/19/22 16:00 100 H 06/19/22 18:00 06/19/22 18:00 99 H 18 102/61 L 06/19/22 12:00 120 H 06/19/22 17:00 98.6 F 110 H 18 90/54 L 06/19/22 16:00 103 H 18 102/57 L 06/19/22 15:22 06/19/22 10:30 06/19/22 14:59 96 H 18 101/53 L 06/19/22 14:00 06/19/22 14:00 99.1 F 95 H 18 96/61 L 06/19/22 13:56 107 H 06/19/22 13:56 110 H 06/19/22 13:56 19 06/19/22 10:10 100.1 F H 120/68 118/64 06/19/22 13:00 119 H 21 121/66 06/19/22 12:08 99.3 F 120 H 20 112/67 06/19/22 12:05 99.3 F 123 H 20 101/70 L 06/19/22 12:00 99.2 F 123 H 20 104/66 L 06/19/22 11:55 99.1 F 130 H 20 139/64 06/19/22 11:50 99.3 F 132 H 20 123/64 06/19/22 11:30 99.3 F 138 H 20 113/78 06/19/22 11:23 06/19/22 10:05 98 H 06/19/22 10:05 98 H 06/19/22 10:05 6 L 06/19/22 09:49 100.8 F H 68 22 120/73 Pulse Ox FiO2 06/20/22 08:00 99 40 06/20/22 08:00 99 40 06/20/22 06:49 100 40 06/20/22 06:17 06/20/22 06:17 06/20/22 06:00 100 40 06/20/22 06:00 40 06/20/22 04:00 06/20/22 05:00 99 40 06/20/22 04:00 100 40 06/20/22 03:00 99 40 06/20/22 02:00 99 40 06/20/22 01:25 40 06/20/22 00:00 06/20/22 00:43 99 40 06/20/22 00:37 100 40 06/20/22 00:00 100 40 06/19/22 23:00 100 40 06/19/22 22:00 100 40 06/19/22 20:45 99 40 06/19/22 20:45 06/19/22 20:45 06/19/22 21:26 40 L 40 06/19/22 21:00 100 40 06/19/22 20:53 100 06/19/22 20:45 100 06/19/22 20:40 100 06/19/22 20:28 99 06/19/22 20:00 06/19/22 19:56 100 40 06/19/22 19:52 100 40 06/19/22 18:35 99 40 06/19/22 16:00 06/19/22 18:00 40 06/19/22 18:00 100 40 06/19/22 12:00 06/19/22 17:00 100 40 06/19/22 16:00 97 40 06/19/22 15:22 98 40 06/19/22 10:30 98 40 06/19/22 14:59 98 40 06/19/22 14:00 40 06/19/22 14:00 99 40 06/19/22 13:56 06/19/22 13:56 06/19/22 13:56 99 40 06/19/22 10:10 06/19/22 13:00 98 40 06/19/22 12:08 98 06/19/22 12:05 98 06/19/22 12:00 98 06/19/22 11:55 98 06/19/22 11:50 97 06/19/22 1
--- NOTE | 2022-06-20 09:52 | EXP.PHA.CONS ---
Pharmacy Consult Date: 06/20/22 Time: 09:52 Referring provider: DR. GONZALEZ Reason for Consult:: VANCOMCYIN LEVEL Allergies Allergy/AdvReac Type Severity Reaction Status Date / Time codeine Allergy Severe Anaphylaxis Verified 05/20/22 13:20 guaifenesin [From Mucinex] Allergy Severe SWELLS Verified 05/20/22 13:20 ketorolac [From Toradol] Allergy Severe Difficulty Verified 05/20/22 13:20 Swallowing sulfamethoxazole AdvReac Intermediate Rash Verified 05/20/22 13:20 [From Bactrim] trimethoprim [From Bactrim] AdvReac Intermediate Rash Verified 05/20/22 13:20 Home Medications Medication Instructions Recorded Confirmed Type metoprolol succinate 25 mg 25 mg PO DAILY High blood pressure 11/16/21 06/19/22 History tablet,extended release 24 hr ibuprofen 800 mg tablet 800 mg PO TIDP PRN Moderate Pain 12/11/21 06/19/22 History potassium chloride 20 mEq 20 meq PO DAILY Supplement #90 tabs 02/15/22 06/19/22 Rx tablet,extended release aspirin 81 mg tablet,delayed 81 mg PO DAILY Blood thinner 05/19/22 06/19/22 History release fluticasone fur. 200 mcg-umeclid 1 inh inhalation DAILY COPD 06/03/22 06/19/22 History 62.5 mcg-vilant 25 mcg inhalat.powder (Trelegy Ellipta) lactulose 10 gram/15 mL oral 45 ml PO TID CONSTIPATION 06/03/22 06/19/22 History solution lisinopril 20 mg tablet 20 mg PO DAILY High blood pressure 06/03/22 06/19/22 History spironolactone 100 mg tablet 100 mg PO DAILY FLUID 06/03/22 06/19/22 History albuterol sulfate 90 mcg/actuation 2 puff inhalation QIDP PRN 06/19/22 06/19/22 History aerosol inhaler Shortness Of Breath gabapentin 600 mg tablet 600 mg PO TID NEUROPATHY 06/19/22 06/19/22 History hydrocodone 7.5 mg-acetaminophen 1 tab PO DAILYP PRN MODERATE TO 06/19/22 06/19/22 History 325 mg tablet SEVERE PAIN nystatin 100,000 unit/mL oral 100,000 unit buccal TID Infection 06/19/22 06/19/22 History suspension torsemide 20 mg tablet 20 mg PO 1600 Fluid 06/19/22 06/19/22 History torsemide 20 mg tablet 40 mg PO AM Fluid 06/19/22 06/19/22 History New Prescriptions to Start Prescriptions: Height: 1.75 m Weight: 124.369 kg Laboratory Results:: Laboratory Results - last 24 hr 06/19/22 07:29: Troponin I 0.09 H 06/19/22 08:05: CSF Volume 12, CSF Appearance Clear, CSF WBC 2, CSF RBC 0, CSF Mononuclear WBCs % 0, CSF Polynuclear WBCs % 0 06/19/22 08:31: Blood Type O Positive 06/19/22 16:10: Sodium 135 L, Potassium 3.8, Chloride 102, Carbon Dioxide 26, Anion Gap 10.8, BUN 36 H D, Creatinine 1.00, Estimated Creat Clear 86, Estimated GFR 79, Est GFR ( Amer) 96, Glucose 116 H, Calcium 7.8 L 06/19/22 17:24: WBC 4.7 L D, RBC 3.29 L, Hgb 10.7 L D, Hct 32.3 L, MCV 98.2 H, MCH 32.4 H, MCHC 33.1, RDW 16.5, Plt Count 55 L, MPV 9.0, Neut % (Auto) 83.2 H, Lymph % (Auto) 11.1, [place] % (Auto) 5.1, Eos % (Auto) 0.1, Baso % (Auto) 0.5, Neut # (Auto) 3.9, Lymph # (Auto) 0.5 L, [place] # (Auto) 0.2, Eos # (Auto) 0.0, Baso # (Auto) 0.0 06/20/22 04:30: Vancomycin Trough 20.8 H 06/20/22 04:30: Sodium 140, Potassium 3.6, Chloride 103, Carbon Dioxide 28, Anion Gap 12.6, BUN 37 H, Creatinine 0.90, Estimated Creat Clear 96, Estimated GFR 90, Est GFR ( Amer) 109, Glucose 99, Calcium 7.7 L, Magnesium 2.0 D, Total Bilirubin 2.4 H, AST 74 H D, ALT 36 D, Alkaline Phosphatase 81, Total Protein 5.3 L, Albumin 2.0 L D, Globulin 3.3 H, Albumin/Globulin Ratio 0.6 L 06/20/22 04:30: WBC 3.4 L D, RBC 3.30 L, Hgb 10.7 L, Hct 33.3 L, MCV 100.8 H, MCH 32.3 H, MCHC 32.0, RDW 16.7, Plt Count 45 L*, MPV 9.5, Neut % (Auto) 80.0, Lymph % (Auto) 12.0, [place] % (Auto) 5.9, Eos % (Auto) 1.7, Baso % (Auto) 0.4, Neut # (Auto) 2.7, Lymph # (Auto) 0.4 L, [place] # (Auto) 0.2, Eos # (Auto) 0.1, Baso # (Auto) 0.0 06/20/22 04:30: PT 15.0 H, INR 1.42 H, APTT 35.5 H 06/20/22 04:30: Phosphorus 2.6 Medical History: Medical History (Updated 06/19/22 @ 09:56 by Patricia Paredes RN) Chronic pain Cirrhosis COPD (chronic obstructive pulmonary disease) Hype
--- NOTE | 2022-06-20 09:58 | CA_ITS ---
APPROVED REPORT EXAM: Comprehensive 2D, Doppler, and color-flow Echocardiogram Ui Architect: Jacklyn Zepeda RCS, RVS Ht: 5 ft 8 in Wt: 274lbs BSA: 2.34 HR: 121 bpm BP: 122/66 mmHg Rhythm: Atrial Fibrillation Indications: Drug overdose, r/o endocarditiis, intubated, Afib, Sepdid, CHF, hx-CVA 2D Dimensions LVDd 5.74 cm LVEF (Visual) 18.90 % LVDs 5.24 cm LA Volume 151.00 mL Aortic Root 3.31 cm LA Volume Index 63.20 mL/m2 (M/F) 16-34 Left Atrium 5.75 cm LVOT 2.16 cm (M/F) 1.5-2.5 M-Mode Dimensions RVDd 3.97 cm (0.9-2.6) LA Diam 5.83 cm (1.9-4.0) LVDd 5.62 cm (3.5-5.7) Ao Diam 3.32 cm (2.0-3.7) LVDs 4.86 cm (3.5-5.7) IVSd 1.25 cm (0.6-1.1) PWd 1.25 cm (0.6-1.1) EF (Teich) 37.60% EPSs 1.66 cm FS 18.50% EDV (Teich) 177.30 mL TAPSE 2.01 (<1.7) ESV (Teich) 110.70 mL LV Diastology E Decel Time 167.00 (160-240 msec) E/A Ratio 1.51 Aortic Valve LVOT Max 116.00 (70-110 cm/s) LVOT VTI 18.55 cm AoV Peak Jimbo. 127.00 (50-130 cm/s) AO Peak GR. 6.40 mmHg AO Mean GR. 3.20 (<5 mmHg) AO VTI 19.95 (18-25 cm) IGGY (VTI) 3.41 (2.5-4.5 cm2) Mitral Valve MV E Max Jimbo. 130.00 (40-130 cm/s) MV A Velocity 86.00 (40-130 cm/s) E/A Ratio 1.51 MV Decel. Time 167.00 (160-240 ms) MV PHT 49.00 ms Pulmonary Valve PV Peak Velocity 101.00 (50-150 cm/s) SD End VMAX 174.00 cm/s Left Ventricle Technically difficult study because of the patient factors and poor acoustic windows. Left atrium is mildly enlarged, left ventricle is normal size mild concentric left ventricular hypertrophy, estimated ejection fraction 50% with no obvious regional wall motion abnormality. Diastolic parameters are inconclusive. Right Ventricle Right atrium and right ventricle are mildly enlarged with normal contractility. Aortic Valve Aortic valve is minimally thickened and calcified without aortic stenosis or aortic insufficiency. Mitral Valve Mitral valve leaflets are minimally thickened, there is mild mitral regurgitation. Tricuspid Valve Tricuspid valve grossly normal, there is mild tricuspid regurgitation, tricuspid regurgitation jet velocity is inadequate for calculation of the right ventricular systolic pressure. Pulmonic Valve Pulmonic valve is poorly visualized. Great Vessels Aortic root is normal size. Inferior vena cava is mildly dilated without significant inspiratory collapse. Pericardium No significant pericardial effusion noted. Conclusion 1. Technically difficult study because of the patient factors and poor acoustic windows. Normal left ventricular size mild concentric left ventricular hypertrophy, estimated ejection fraction 50% with no regional wall motion abnormality, diastolic parameters are inconclusive. 2. Mild mitral and tricuspid regurgitation. 3. No significant pericardial effusion noted. 4. Inferior vena cava is mildly dilated without significant inspiratory collapse. Electronically signed by : Iraj Ortiz MD 06/20/2022 13:15:50
[2022-06-20 10:07] LABS: ABG Base Excess 3.1 mmol/L (-2.4-2.3); ABG HCO3 26.9 mmhg (22.0-26.0); ABG Oxygen Saturation 98 % (90-100); ABG PCO2 38.5 mmhg (35.0-45.0); ABG PH 7.46 mmol/L (7.35-7.45); ABG PO2 97.8 mmhg (80-100); ABG TCO2 28.1 mmhg (23-27); Allen's Test Patient Unable; Oxygen 40 %; Source Right Brachial
[2022-06-20 16:13] LABS: Basophils % 0.2 % (0.1-2.0); Eosinophils # 0.1 K/mm3 (0.0-0.4); Eosinophils % 1.1 % (0.1-12.0); Hematocrit 35.1 % (42.0-52.0); Hemoglobin 11.6 g/dL (14.1-18.0); Lymphocytes # 0.8 K/mm3 (0.7-4.5); Lymphocytes % 14.4 % (10-50); Mean Corpuscular HGB Conc 32.9 g/dL (31.8-35.4); Mean Corpuscular Hemoglobin 32.3 pg (27.0-31.2); Mean Corpuscular Volume 98.4 fl (80-94); Mean Platelet Volume 9.3 fl (7.4-10.4); Monocytes # 0.3 K/mm3 (0.1-1.0); Monocytes % 5.6 % (1.7-9.3); Neutrophils # 4.5 K/mm3 (1.8-7.8); Neutrophils % 78.6 % (37.0-80.0); Platelet Count 75 K/mm3 (142-424); Red Blood Count 3.57 M/mm3 (4.60-6.20); White Blood Count 5.7 K/mm3 (4.8-10.8)
[2022-06-20 16:30] LABS: Anion Gap 8.2 mEq/L (5-15); Blood Urea Nitrogen 31 mg/dl (9-20); Calcium 8.3 mg/dl (8.4-10.2); Carbon Dioxide 30 mmol/L (22.0-30.0); Chloride 104 mmol/L (98-107); Creatinine Clearance Estimated 96 mL/min (50-200); Estimated Glomerular Filt Rate 90 ml/min (>60); GFR (African American) 109 ML/MIN (>60); Glucose 98 mg/dl (74-100); Potassium 3.2 mmoL/L (3.5-5.1); Sodium 139 mmol/L (136-145)
[2022-06-21] VITALS (27 sets, daily range): BP systolic 93–162; BP diastolic 62–125; PULSE 84–149; RESP 15–24; TEMP 36.7–37.1; O2SAT 94–100
--- NOTE | 2022-06-21 03:20 | PC.NURSE ---
decreased pt's propofol to 10mcg/kg/min (from 20mcg/kg/min) and held fentanyl (was going at 12.5mcg/hr) for sbt trial this am
--- NOTE | 2022-06-21 03:38 | PC.NURSE ---
spO2 on monitor malfunctioned, changed sat probe and sites numerous times and changed cords without success, have bedside monitoring apparatus measuring oxygen saturations at bedside in room, sats 95-97% on 40%FIO2 on ventilator
[2022-06-21 05:57] LABS: Basophils # 0.1 K/mm3 (0-0.2); Basophils % 0.6 % (0.1-2.0); Eosinophils # 0.2 K/mm3 (0.0-0.4); Eosinophils % 1.9 % (0.1-12.0); Hematocrit 43.3 % (42.0-52.0); Lymphocytes # 1.5 K/mm3 (0.7-4.5); Mean Corpuscular HGB Conc 32.5 g/dL (31.8-35.4); Mean Corpuscular Hemoglobin 32.6 pg (27.0-31.2); Mean Corpuscular Volume 100.4 fl (80-94); Mean Platelet Volume 9.9 fl (7.4-10.4); Monocytes # 0.8 K/mm3 (0.1-1.0); Monocytes % 7.2 % (1.7-9.3); Neutrophils % 76.3 % (37.0-80.0); Platelet Count 89 K/mm3 (142-424); Red Blood Count 4.32 M/mm3 (4.60-6.20); Red Cell Distribution Width 16.3 % (11.5-17.5); White Blood Count 10.5 K/mm3 (4.8-10.8)
--- NOTE | 2022-06-21 06:00 | XR_ITS ---
PROCEDURE INFORMATION: Exam: XR Chest Exam date and time: 06/21/2022 5:19 AM Age: 47 years old Clinical indication: Device placement; Ett placement (vent status); Additional info: Intubated TECHNIQUE: Imaging protocol: Radiologic exam of the chest. Views: 1 view. COMPARISON: CR XR CHEST PORTABLE 06/20/2022 3:47 AM FINDINGS: Tubes, catheters and devices: ET tube and nasogastric tube in good position. Lungs: Unremarkable. No consolidation. Pleural spaces: Unremarkable. No pleural effusion. No pneumothorax. Heart/Mediastinum: The heart is prominent but unchanged. Bones/joints: Unremarkable. IMPRESSION: ET tube in good position.
[2022-06-21 06:13] LABS: Hemoglobin 14.2 g/dL (14.1-18.0)
[2022-06-21 06:54] LABS: ABG Base Excess 2.5 mmol/L (-2.4-2.3); ABG HCO3 26.9 mmhg (22.0-26.0); ABG Oxygen Saturation 99 % (90-100); ABG PCO2 41.5 mmhg (35.0-45.0); ABG PH 7.43 mmol/L (7.35-7.45); ABG PO2 114.2 mmhg (80-100); ABG TCO2 28.1 mmhg (23-27)
--- NOTE | 2022-06-21 07:00 | EXP.SEPSISRE ---
H Tissue Perfusion Eval Sepsis Re-Evaluation Performed: Yes Date Performed: 06/21/22 Time Performed: 07:00
[2022-06-21 07:39] LABS: Alanine Aminotransferase 38 U/L (12-78); Albumin Level 2.7 g/dl (3.5-5.0); Albumin/Globulin Ratio 0.7 (1.1-1.8); Alkaline Phosphatase 126 U/L (38-126); Anion Gap 8.7 mEq/L (5-15); Aspartate Amino Transferase 69 U/L (17-59); Bilirubin,Total 3.3 mg/dl (0.2-1.3); Blood Urea Nitrogen 26 mg/dl (9-20); Calcium 8.4 mg/dl (8.4-10.2); Carbon Dioxide 28 mmol/L (22.0-30.0); Chloride 107 mmol/L (98-107); Creatinine Clearance Estimated 124 mL/min (50-200); Estimated Glomerular Filt Rate 120 ml/min (>60); GFR (African American) 145 ML/MIN (>60); Globulin 4.1 g/dL (1.3-3.2); Glucose 86 mg/dl (74-100); Magnesium 1.8 mg/dl (1.6-2.3); Potassium 3.7 mmoL/L (3.5-5.1); Sodium 140 mmol/L (136-145); Total Protein,Serum 6.8 g/dl (6.3-8.2)
[2022-06-21 08:10] LABS: Oxygen 40 %; PEEP 5; Pressure Support 8; Source R BRACHIAL
--- NOTE | 2022-06-21 08:30 | DIET.NUTRFU ---
RD rounded with provider today, extubated patient. Will continue to monitor and have WINTER INTERN eval when medically appropriate to determine oral diet.
--- NOTE | 2022-06-21 08:34 | PC.NURSE ---
Patient extubated per RT at bedside. Patient put on 2LNC, tolerating well. Current oxygen saturation 96%.
--- NOTE | 2022-06-21 13:03 | EXP.PN ---
Subjective *Date: 06/21/22 *Time: 15:14 Interval history: Patient was extubated by respiratory therapy at approximately 8:20 AM this morning. Patient had been off sedation for several hours and was breathing on his own. Between extubation and application of nasal cannula patient was satting in the mid 90s on room air. 2 L of supplemental oxygen was supplied for respiratory support, and this will be weaned down today. Exam Data for Last 24 hours Vital signs and Labs for Last 24 Hours: Temp Pulse Resp BP Pulse Ox FiO2 98.2 F 130 H 23 151/80 H 94 L 40 06/21/22 11:00 06/21/22 12:00 06/21/22 12:00 06/21/22 12:00 06/21/22 12:00 06/21/22 06:43 Laboratory Results - last 24 hr 06/19/22 08:31: Blood Type O Positive 06/20/22 16:00: WBC 5.7 D, RBC 3.57 L, Hgb 11.6 L, Hct 35.1 L, MCV 98.4 H, MCH 32.3 H, MCHC 32.9, RDW 16.0, Plt Count 75 L D, MPV 9.3, Neut % (Auto) 78.6, Lymph % (Auto) 14.4, [place] % (Auto) 5.6, Eos % (Auto) 1.1, Baso % (Auto) 0.2, Neut # (Auto) 4.5, Lymph # (Auto) 0.8, [place] # (Auto) 0.3, Eos # (Auto) 0.1, Baso # (Auto) 0.0 06/20/22 16:00: Sodium 139, Potassium 3.2 L, Chloride 104, Carbon Dioxide 30, Anion Gap 8.2, BUN 31 H, Creatinine 0.90, Estimated Creat Clear 96, Estimated GFR 90, Est GFR ( Amer) 109, Glucose 98, Calcium 8.3 L 06/21/22 05:15: WBC 10.5 D, RBC 4.32 L, Hgb 14.2 D, Hct 43.3, MCV 100.4 H, MCH 32.6 H, MCHC 32.5, RDW 16.3, Plt Count 89 L, MPV 9.9, Neut % (Auto) 76.3, Lymph % (Auto) 14.0, [place] % (Auto) 7.2, Eos % (Auto) 1.9, Baso % (Auto) 0.6, Neut # (Auto) 8.0 H, Lymph # (Auto) 1.5, [place] # (Auto) 0.8, Eos # (Auto) 0.2, Baso # (Auto) 0.1 06/21/22 06:00: Specimen Source R brachial, O2 % 40, ABG pH 7.43, ABG pCO2 41.5, ABG pO2 114.2 H, ABG HCO3 26.9 H, ABG Total CO2 28.1 H, ABG O2 Saturation 99, ABG Base Excess 2.5 H, PEEP 5 06/21/22 07:25: Sodium 140, Potassium 3.7, Chloride 107, Carbon Dioxide 28, Anion Gap 8.7, BUN 26 H, Creatinine 0.70 D, Estimated Creat Clear 124, Estimated GFR 120, Est GFR ( Amer) 145 D, Glucose 86, Calcium 8.4, Magnesium 1.8, Total Bilirubin 3.3 H, AST 69 H, ALT 38, Alkaline Phosphatase 126, Total Protein 6.8 D, Albumin 2.7 L D, Globulin 4.1 H, Albumin/Globulin Ratio 0.7 L I & O for Last 24 hours: Intake & Output 06/19/22 06/19/22 06/20/22 06/21/22 00:59 23:59 23:59 23:59 Intake Total 2250 / 2250 1597 / 1597 Output Total 2752 / 2752 1522 / 1522 Balance -502 / -502 75 / 75 Weight 124.369 kg Microbiology Reports for the Last 24 Hours: Microbiology 06/19/22 18:50 Rectum CRE Surveillance Culture - Final Negative 06/19/22 05:50 Sputum - Endotracheal Tube Aspirate Gram Stain - Final 06/19/22 05:50 Sputum - Endotracheal Tube Aspirate Sputum Culture - Preliminary 06/19/22 16:00 Leg,Left Gram Stain - Final 06/19/22 16:00 Leg,Left Wound Culture - Preliminary 06/19/22 04:10 Blood - Brach-Ceph Blood Culture - Final Strep dysgalactiae ssp equisi 06/19/22 04:10 Blood - Brach-Ceph Blood Culture - Final Strep dysgalactiae ssp equisi 06/19/22 04:22 Urine,Catheterized Urine Culture - Final NO GROWTH AFTER 48 HOURS 06/19/22 16:00 Leg,Right Gram Stain - Final 06/19/22 16:00 Leg,Right Wound Culture - Preliminary NO GROWTH AFTER 24 HOURS 06/19/22 08:05 Cerebral Spinal Fluid Gram Stain - Final 06/19/22 08:05 Cerebral Spinal Fluid CSF Culture - Preliminary NO GROWTH AFTER 24 HOURS Constitutional Constitutional: mild distress (AMS, sedation, agitation), obese and chronically ill appearing Comments: Able to follow commands by squeezing fingers, raising arms, and nodding head. *Routine HEENT Exam Head: Present normocephalic and atraumatic Eye: Present EOMI, PERRL and other (frequently has eyes closed ) ENT: Present mucous membranes moist and oropharynx clear
--- NOTE | 2022-06-21 13:51 | CA_ITS ---
FINAL REPORT TECHNIQUE: Multiple transverse and longitudinal images were performed of right the femoral-popliteal deep venous system with augmentation and compression maneuvers. CLINICAL HISTORY: right foot swelling cellulitis, sepsis, Drug overdose FINDINGS: Right lower extremity duplex ultrasound demonstrates normal flow in the deep venous system. There is no abnormal echogenicity to suggest thrombus. There is normal compression and augmentation. There is a 3 cm lymph node in the proximal right thigh. There is a preserved fatty hilum. IMPRESSION: No evidence of right DVT. Reviewed, Interpreted and Dictated by Joe Benavidez MD Transcribed by Alley Adair Authenticated and [facility]
--- NOTE | 2022-06-21 15:20 | EXP.ORTH.CON ---
History of Present Illness *Admission Date: 06/19/22 *Reason for visit:: cellulitis, bilateral lower extremity wounds *History of present illness: Mr. Ragland is a 47 year old male patient admitted to the acute inpatient service on 06/19/2022 after presenting to the emergency department with altered mental status and sepsis. Orthopedics consulted in regards to the patient's right foot/ankle cellulitis. History obtained from nursing staff and prior documentation as patient continues to have altered mental status and is unable to respond to verbal questioning. The patient has had ongoing chronic venous stasis ulcers for many years, he was last evaluated by the [facility] orthopedic services in November 2021 and has also previously been under the care of of podiatry and wound care for the same issue. Per nursing staff, the patient's right lower extremity edema has worsened over the past few days during his admission. His past medical history is significant for COPD, lymphedema, tobacco abuse, cellulitis, CHF, hypertension, and cirrhosis. [facility] Medical History Chronic pain Cirrhosis COPD (chronic obstructive pulmonary disease) Hypertension Family History Heart disease Social History Smoking Status: Current every day smoker tobacco type: smokeless tobacco second hand exposure: Yes alcohol intake: former substance use type: crack/cocaine and methamphetamine current occupational status: disabled Travel in the last 8 weeks: None household members: friend(s) housing: house current occupation: unknown current occupational exposures/hazards: No caffeine: Yes Meds Home Medications and Allergies Home Medications Medication Instructions Recorded Confirmed Type metoprolol succinate 25 mg 25 mg PO DAILY High blood pressure 11/16/21 06/19/22 History tablet,extended release 24 hr ibuprofen 800 mg tablet 800 mg PO TIDP PRN Moderate Pain 12/11/21 06/19/22 History potassium chloride 20 mEq 20 meq PO DAILY Supplement #90 tabs 02/15/22 06/19/22 Rx tablet,extended release aspirin 81 mg tablet,delayed 81 mg PO DAILY Blood thinner 05/19/22 06/19/22 History release fluticasone fur. 200 mcg-umeclid 1 inh inhalation DAILY COPD 06/03/22 06/19/22 History 62.5 mcg-vilant 25 mcg inhalat.powder (Trelegy Ellipta) lactulose 10 gram/15 mL oral 45 ml PO TID CONSTIPATION 06/03/22 06/19/22 History solution lisinopril 20 mg tablet 20 mg PO DAILY High blood pressure 06/03/22 06/19/22 History spironolactone 100 mg tablet 100 mg PO DAILY FLUID 06/03/22 06/19/22 History albuterol sulfate 90 mcg/actuation 2 puff inhalation QIDP PRN 06/19/22 06/19/22 History aerosol inhaler Shortness Of Breath gabapentin 600 mg tablet 600 mg PO TID NEUROPATHY 06/19/22 06/19/22 History hydrocodone 7.5 mg-acetaminophen 1 tab PO DAILYP PRN MODERATE TO 06/19/22 06/19/22 History 325 mg tablet SEVERE PAIN nystatin 100,000 unit/mL oral 100,000 unit buccal TID Infection 06/19/22 06/19/22 History suspension torsemide 20 mg tablet 20 mg PO 1600 Fluid 06/19/22 06/19/22 History torsemide 20 mg tablet 40 mg PO AM Fluid 06/19/22 06/19/22 History New Prescriptions to Start Prescriptions: Allergies Allergy/AdvReac Type Severity Reaction Status Date / Time codeine Allergy Severe Anaphylaxis Verified 05/20/22 13:20 guaifenesin [From Mucinex] Allergy Severe SWELLS Verified 05/20/22 13:20 ketorolac [From Toradol] Allergy Severe Difficulty Verified 05/20/22 13:20 Swallowing sulfamethoxazole AdvReac Intermediate Rash Verified 05/20/22 13:20 [From Bactrim] trimethoprim [From Bactrim] AdvReac Intermediate Rash Verified 05/20/22 13:20 Ortho Exam (Inpt) Vital signs and Labs for Last 24 Hours: Temp Pulse Resp BP Pulse Ox FiO2 98.2 F 149 H 23 93/62 L 97 40 11/0
[2022-06-21 15:37] LABS: Lactic Acid 2.9 mmol/L (0.7-2.1)
[2022-06-21 15:39] LABS: Erythrocyte Sedimentation Rate 20 mm/hr (0-15)
--- NOTE | 2022-06-21 16:21 | HMH.ITSTN ---
Patient's exam was moved to 06/22/22 due to clearance for MRI from Radiologist.
--- NOTE | 2022-06-21 16:25 | HMH.ITSTN ---
Patient's exam was moved to 06/22/22 due to clearance for MRI from Radiologist.
--- NOTE | 2022-06-21 18:03 | PC.NURSE ---
Dr. Herrera notified of swelling and increased pain in patient's right foot. PT asked to take unoboot off and dressing with kerlix was applied. Orthopedic consulted and venous doppler ordered per Dr. Herrera. CT scan ordered and MRI ordered. Was told patient needed CT scan first before MRI per case management. Patient was taken down to CT but before CT was initiated was told by store facility technician to take patient to MRI due to opening. Verified with store facility technician that care management stated the patient could get MRI before CT. Took patient to MRI but MRI checklist could not be verified as patient is confused and patient's family members (Sister Rabia and father Vinod) stated they didnt think the patient had any implants but could not say for sure. dairy technician called radiologist number a couple of times to see if we could do anything to proceed with MRI but was sent to voicemail 4 times. dairy technician had called chain of command to see if a different number was used but no radiologist could be reached. dairy technician scheduled MRI for tomorrow between 12-2. Brought patient back to floor and informed Dr. Herrera of complications and no CT or MRI was obtained.
--- NOTE | 2022-06-21 18:10 | PC.NURSE ---
Patient tolerated 2LNc after extubation and then tolerating room air with oxygen sats 96-98%. VS stable but heart rate continues to be between 120-150. Metoprolol 5 mg IV given twice per prn orders. Patient still confused and will not open eyes on own but able to follow commands when prompted. Patient had a couple of bowel movements but no panel able to be obtained as bowels are smears and liquid that seeps into jeaneth. Patient still restless and agitated during shift, benadryl and ativan given and patient tolerated well. Lungs sounds still diminished on left and inspiratory rhonchi on left.
[2022-06-21 19:17] LABS: Reflex Lactic Add Lactic Reflex
--- NOTE | 2022-06-21 20:53 | PC.NURSE ---
Multiple attempts made to obtain lactic acid level by lab, and nursing staff. NURSING ATTENDANT notified at this time, stated to attempt again in a few by obtaining an ultrasound IV.
--- NOTE | 2022-06-21 21:19 | PC.NURSE ---
New IV obtained at this time, #20 to Right upper arm, lactic collected and sent to lab.
--- NOTE | 2022-06-21 21:20 | PC.NURSE ---
2044 - CHECKER DUMP GROUNDS here for rounds. Pt is very restless and agitated, has been since beginning of shift. HR >125, BP elevated. Mittens in place, patient continues to try to pull them off and pull at catheter. Pt tore his IV tubing in half, and continues to pull at telemetry leads. CHECKER [employer]OUNDS stated she would order Ativan PRN for agitation.
--- NOTE | 2022-06-21 21:38 | PC.NURSE ---
#20g placed to left upper arm via ultrasound.
[2022-06-21 21:52] LABS: Lactic Acid Follow Up (RFLX 1) 2.5 mmol/L (0.7-2.1)
--- NOTE | 2022-06-21 22:14 | PC.NURSE ---
#20g from left hand removed at this time Pt appears to be resting better. HR 120's, BP 125/75, pt appears to be resting well.
[2022-06-21 22:41] LABS: Vancomycin,Trough 23.2 ug/mL (5.0-10.0)
--- NOTE | 2022-06-21 22:43 | PC.NURSE ---
Received critical vanc trough from lab - [facility] paged.
--- NOTE | 2022-06-21 22:45 | PC.NURSE ---
[facility] ordered to continue with 2100 dose of vanc trough, and have inpatient pharmacist adjust next dose. Hospitalist notified as well.
[2022-06-21 23:32] LABS: Reflex Lactic (2 hrs) Add Lactic Reflex
[2022-06-22] VITALS (23 sets, daily range): BP systolic 101–158; BP diastolic 54–92; PULSE 107–143; RESP 16–23; TEMP 36.5–36.8; O2SAT 90–99; BMI 37.5
[2022-06-22 01:54] LABS: Lactic Acid Follow up (RFLX 2) 2.4 mmol/L (0.7-2.1)
[2022-06-22 02:15] LABS: Vancomycin,Peak 33.1 ug/ml (11-39)
--- NOTE | 2022-06-22 06:00 | XR_ITS ---
PROCEDURE INFORMATION: Exam: XR Chest Exam date and time: 06/22/2022 5:39 AM Age: 47 years old Clinical indication: Device placement; Ett placement (vent status); Patient HX: Extubated 06/21/22; Additional info: Post intubation follow up TECHNIQUE: Imaging protocol: Radiologic exam of the chest. Views: 1 view. COMPARISON: CR XR CHEST PORTABLE 06/21/2022 5:19 AM FINDINGS: Lungs: Interstitial prominence and asymmetric basilar airspace disease, left greater than right. Pleural spaces: Left pleural effusion obscuring the left hemidiaphragm. Heart/Mediastinum: Cardiomegaly. Bones/joints: Unremarkable. IMPRESSION: 1. Interstitial prominence and asymmetric basilar airspace disease, left greater than right. 2. Left pleural effusion obscuring the left hemidiaphragm.
--- NOTE | 2022-06-22 06:48 | PC.NURSE ---
Pt has been intermittenly restless and agitated this shift. Has c/o pain at times. Medicated per oct with Ativan. LS diminished t/o, O2 @ 2L NC in place while asleep. HR has remained between 120-140 and in afib with frequent PVC's noted. Metoprolol IV given per oct. BP stable. No bm this shift, f/c remains patent, draining dark reji colored urine. No fever this shift. Will continue to monitor.
[2022-06-22 08:05] LABS: Basophils # 0.1 K/mm3 (0-0.2); Basophils % 0.7 % (0.1-2.0); Eosinophils # 0.1 K/mm3 (0.0-0.4); Eosinophils % 0.7 % (0.1-12.0); Hematocrit 44.3 % (42.0-52.0); Hemoglobin 13.8 g/dL (14.1-18.0); Lymphocytes % 16.1 % (10-50); Mean Corpuscular HGB Conc 31.2 g/dL (31.8-35.4); Mean Corpuscular Hemoglobin 32.1 pg (27.0-31.2); Mean Corpuscular Volume 102.8 fl (80-94); Mean Platelet Volume 9.8 fl (7.4-10.4); Monocytes % 8.3 % (1.7-9.3); Neutrophils % 74.3 % (37.0-80.0); Platelet Count 96 K/mm3 (142-424); Red Blood Count 4.31 M/mm3 (4.60-6.20); Red Cell Distribution Width 16.4 % (11.5-17.5); White Blood Count 12.2 K/mm3 (4.8-10.8)
[2022-06-22 08:25] LABS: Alanine Aminotransferase 31 U/L (12-78); Albumin Level 2.2 g/dl (3.5-5.0); Albumin/Globulin Ratio 0.6 (1.1-1.8); Alkaline Phosphatase 150 U/L (38-126); Anion Gap 13.2 mEq/L (5-15); Aspartate Amino Transferase 66 U/L (17-59); Bilirubin,Total 4.2 mg/dl (0.2-1.3); Blood Urea Nitrogen 30 mg/dl (9-20); Calcium 8.2 mg/dl (8.4-10.2); Carbon Dioxide 26 mmol/L (22.0-30.0); Chloride 110 mmol/L (98-107); Creatinine Clearance Estimated 182 mL/min (50-200); Estimated Glomerular Filt Rate 103 ml/min (>60); GFR (African American) 124 ML/MIN (>60); Globulin 3.7 g/dL (1.3-3.2); Glucose 89 mg/dl (74-100); Potassium 4.2 mmoL/L (3.5-5.1); Sodium 145 mmol/L (136-145); Total Protein,Serum 5.9 g/dl (6.3-8.2)
[2022-06-22 08:37] LABS: NT Pro Brain Natriuretic Pep. 4470 pg/mL (0-125); Troponin I 0.03 ng/ml (0.00-0.034)
--- NOTE | 2022-06-22 08:44 | DIET.NUTRFU ---
Addendum entered by Priscilla Gonzalez RD, LD 06/22/22 13:43: Patient was sedated for MRI and off unit, should be ready for VAT P[facility]ER eval once awake. Put consult in Original Note: RD rounded with provider today, patient seemed sedated did not respond to questions. He was requesting meals yesterday, waiting for VAT P[facility]ER to eval today. Called VAT P[facility]ER suggested may want to wait till lunch hoping he will be more responsive at that time. He continues to receive IVF and hydration labs are WNL
[2022-06-22 09:02] LABS: Ammonia 30 umol/L (9-30)
--- NOTE | 2022-06-22 09:28 | EXP.PHA.PN ---
Subjective *Date: 06/22/22 *Time: 09:28 Medical Exam Vital signs and Labs for Last 24 Hours: Vital Signs Temp Pulse Pulse Resp BP Pulse Ox 06/22/22 09:17 121 H 06/22/22 09:17 125 H 06/22/22 07:50 98.1 F 06/22/22 06:00 132 H 19 127/54 L 95 06/22/22 05:48 119 H 06/22/22 05:48 130 H 06/22/22 05:48 92 L 06/22/22 04:00 130 H 06/22/22 00:00 130 H 06/21/22 20:00 127 H 06/22/22 04:00 97.7 F 06/22/22 02:00 126 H 18 101/66 L 96 06/22/22 00:00 96 06/22/22 00:00 98.2 F 06/21/22 22:00 125 H 18 125/75 97 06/21/22 20:00 140 H 20 94 L 06/21/22 21:24 129 H 18 162/79 H 97 06/21/22 20:00 98.0 F 140 H 20 158/125 H 96 06/21/22 20:00 98.0 F 06/21/22 19:48 110 H 06/21/22 19:48 110 H 06/21/22 18:19 98.1 F 144 H 18 131/73 96 06/21/22 16:25 98.4 F 132 H 20 149/76 H 98 06/21/22 14:00 149 H 23 93/62 L 97 06/21/22 13:47 106 H 06/21/22 13:47 119 H 06/21/22 12:00 130 H 06/21/22 12:00 130 H 23 151/80 H 94 L 06/21/22 11:32 102 H 06/21/22 11:32 101 H 06/21/22 11:00 98.2 F 123 H 24 132/95 H 94 L 06/21/22 10:00 98.4 F 116 H 24 158/91 H 100 Intake and Output 06/21/22 06/22/22 06/22/22 23:59 07:59 15:59 Intake Total 540 / 2137 1448 / 1448 Output Total 160 / 1682 750 / 750 Balance 380 / 455 698 / 698 Intake: Intake, Total IV Amount 540 / 2137 1448 / 1448 Cefepime HCl 2 gm In 0.9 % 100 / 200 100 / 100 Sodium Chloride 100 ml @ 200 mls/hr IV Q8H CJ Rx#:[id number] Ringers Solution,Lactated 1,000 440 / 1070 998 / 998 ml @ 100 mls/hr IV .Q10H CJ Rx#:[id number] Vancomycin/Water For Inj (Peg) 350 / 350 1.75 gm In 350 ml @ 175 mls/hr IV Q12 CJ Rx#:[id number] Output: Output, Urine Amount (Catheter) 160 / 1627 750 / 750 [place] 160 / 1627 750 / 750 Other: Number of Unmeasured Voids 0 0 Weight 114.901 kg Patient Weight 06/22/22 23:59 Weight 114.901 kg Laboratory Results - last 24 hr 06/21/22 15:10: ESR 20 H 06/21/22 15:10: Lactate 2.9 H 06/21/22 21:34: Lactate 2.5 H 06/21/22 21:58: Vancomycin Trough 23.2 H 06/22/22 01:27: Lactate 2.4 H 06/22/22 01:27: Vancomycin Peak 33.1 06/22/22 07:58: WBC 12.2 H, RBC 4.31 L, Hgb 13.8 L, Hct 44.3, MCV 102.8 H, MCH 32.1 H, MCHC 31.2 L, RDW 16.4, Plt Count 96 L, MPV 9.8, Neut % (Auto) 74.3, Lymph % (Auto) 16.1, [place] % (Auto) 8.3, Eos % (Auto) 0.7, Baso % (Auto) 0.7, Neut # (Auto) 9.0 H, Lymph # (Auto) 2.0, [place] # (Auto) 1.0, Eos # (Auto) 0.1, Baso # (Auto) 0.1 06/22/22 07:58: Sodium 145, Potassium 4.2, Chloride 110 H, Carbon Dioxide 26, Anion Gap 13.2, BUN 30 H, Creatinine 0.80, Estimated Creat Clear 182, Estimated GFR 103, Est GFR ( Amer) 124, Glucose 89, Calcium 8.2 L, Total Bilirubin 4.2 H, AST 66 H, ALT 31, Alkaline Phosphatase 150 H, Total Protein 5.9 L, Albumin 2.2 L D, Globulin 3.7 H, Albumin/Globulin Ratio 0.6 L 06/22/22 07:58: Ammonia 30 06/22/22 07:58: Troponin I 0.03, NT-Pro-B Natriuret Pep 4470 H I & O for Labs for Last 24 Hours: Intake & Output 06/19/22 06/20/22 06/21/22 06/22/22 23:59 23:59 23:59 23:59 Intake Total 2250 / 2250 2137 / 2137 1448 / 1448 Output Total 2752 / 2752 1682 / 1682 750 / 750 Balance -502 / -502 455 / 455 698 / 698 Weight 124.369 kg 114.901 kg Microbiology Reports for the Last 24 Hours: Microbiology 06/19/22 16:00 Leg,Right Gram Stain - Final 06/19/22 16:00 Leg,Right Wound Culture - Preliminary Gram Positive Cocci 06/19/22 16:00 Leg,Left Gram Stain - Final 06/19/22 16:00 Leg,Left Wound Culture - Preliminary Gram Positive Cocci Gram Positive Cocci#2 Gram Positive Cocci#3 06/19/22 08:05 Cerebral Spinal Fluid Gram Stain - Final
--- NOTE | 2022-06-22 10:38 | MR_ITS ---
FINAL REPORT CLINICAL HISTORY: AMS ENECPHALOPATHY BEST IMAGES POSSIBLE DUE TO VERY COMBATIVE AND CONFUSD. PT WAS GIVEN ATIVAN PRIOR TO SCAN. COMPARISON: 06/19/2022 FINDINGS: Multi planar MR imaging was obtained through the brain without contrast. Patient motion degrades image assessment. 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 This is well seen on image 12 series 2. There is mild abnormal signal in the deep white matter bilaterally. The midline structures appear intact. There is no evidence of Chiari malformation. On T2 and flair axial images the brain parenchyma is homogeneous. On diffusion-weighted images there is no evidence of restricted diffusion. There is mild lobular mucoperiosteal thickening in the right maxillary sinus. The seventh and eighth nerve root complexes are intact. IMPRESSION: Suboptimal exam due to patient motion. Mild changes of chronic vascular ischemia. Chronic right maxillary sinusitis. Reviewed, Interpreted and Dictated by Joe Benavidez MD Transcribed by Meli Cordero Authenticated and [facility]
--- NOTE | 2022-06-22 11:01 | EXP.PN ---
Subjective *Date: 06/22/22 *Time: 11:01 Interval history: Patient was somewhat restless and agitated overnight, he was given Ativan 1 mg IV. This morning he is laying in bed supine, difficult to arouse but will awake to sternal rub and loud verbal stimuli. He makes incomprehensible noises and moves his arms and legs in a seemingly non-purposeful way. Exam Data for Last 24 hours Vital signs and Labs for Last 24 Hours: Temp Pulse Resp BP Pulse Ox FiO2 98.1 F 121 H 19 127/54 L 95 40 06/22/22 07:50 06/22/22 09:17 06/22/22 06:00 06/22/22 06:00 06/22/22 06:00 06/21/22 06:43 Laboratory Results - last 24 hr 06/21/22 15:10: ESR 20 H 06/21/22 15:10: Lactate 2.9 H 06/21/22 21:34: Lactate 2.5 H 06/21/22 21:58: Vancomycin Trough 23.2 H 06/22/22 01:27: Lactate 2.4 H 06/22/22 01:27: Vancomycin Peak 33.1 06/22/22 07:58: WBC 12.2 H, RBC 4.31 L, Hgb 13.8 L, Hct 44.3, MCV 102.8 H, MCH 32.1 H, MCHC 31.2 L, RDW 16.4, Plt Count 96 L, MPV 9.8, Neut % (Auto) 74.3, Lymph % (Auto) 16.1, [place] % (Auto) 8.3, Eos % (Auto) 0.7, Baso % (Auto) 0.7, Neut # (Auto) 9.0 H, Lymph # (Auto) 2.0, [place] # (Auto) 1.0, Eos # (Auto) 0.1, Baso # (Auto) 0.1 06/22/22 07:58: Sodium 145, Potassium 4.2, Chloride 110 H, Carbon Dioxide 26, Anion Gap 13.2, BUN 30 H, Creatinine 0.80, Estimated Creat Clear 182, Estimated GFR 103, Est GFR ( Amer) 124, Glucose 89, Calcium 8.2 L, Total Bilirubin 4.2 H, AST 66 H, ALT 31, Alkaline Phosphatase 150 H, Total Protein 5.9 L, Albumin 2.2 L D, Globulin 3.7 H, Albumin/Globulin Ratio 0.6 L 06/22/22 07:58: Ammonia 30 06/22/22 07:58: Troponin I 0.03, NT-Pro-B Natriuret Pep 4470 H I & O for Last 24 hours: Intake & Output 06/19/22 06/20/22 06/21/22 06/22/22 23:59 23:59 23:59 23:59 Intake Total 2250 / 2250 2137 / 2137 1448 / 1448 Output Total 2752 / 2752 1682 / 1682 750 / 750 Balance -502 / -502 455 / 455 698 / 698 Weight 124.369 kg 114.901 kg Microbiology Reports for the Last 24 Hours: Microbiology 06/19/22 05:50 Sputum - Endotracheal Tube Aspirate Gram Stain - Final 06/19/22 05:50 Sputum - Endotracheal Tube Aspirate Sputum Culture - Preliminary 06/19/22 16:00 Leg,Right Gram Stain - Final 06/19/22 16:00 Leg,Right Wound Culture - Preliminary Gram Positive Cocci 06/19/22 16:00 Leg,Left Gram Stain - Final 06/19/22 16:00 Leg,Left Wound Culture - Preliminary Gram Positive Cocci Gram Positive Cocci#2 Gram Positive Cocci#3 06/19/22 08:05 Cerebral Spinal Fluid Gram Stain - Final 06/19/22 08:05 Cerebral Spinal Fluid CSF Culture - Preliminary NO GROWTH AFTER 48 HOURS 06/19/22 18:50 Rectum CRE Surveillance Culture - Final Negative 06/19/22 04:10 Blood - Brach-Cep Blood Culture - Final Strep dysgalactiae ssp equisi 06/19/22 04:10 Blood - Brach-Ceph Blood Culture - Final Strep dysgalactiae ssp equisi Constitutional Constitutional: moderate distress (from AMS), obese, chronically ill appearing and somnolent *Routine HEENT Exam Head: Present normocephalic and atraumatic Eye: Present EOMI (unable to be tested as pt doesn't open eyes spontaneously and doesn't follow commands); Absent PERRL (pin point pupils bilaterally, not reactive to light ), periorbital ecchymosis or periorbital swelling ENT: Present mucous membranes dry; Absent dentition normal *Routine Neck Exam Neck: Present supple *Routine Respiratory Exam Respiratory: Present rhonchi (diffusely ) and diminished air movement; Absent accessory muscle use or respiratory distress *Routine Cardiovascular Exam Cardiovascular: Present tachycardia; Absent murmur Comments: regular rhythm *Routine Abdominal Exam Abdominal: Present soft; Absent tenderness, distended or guarding *Routine Extremities Exam Extremiti
--- NOTE | 2022-06-22 11:13 | ECG_ITS ---
APPROVED REPORT Exam: Resting ECG HR:139 bpm ECG Measurements Heart Rate 139 AXES QRSd 111 QRS 18 QT 304 T 147 QTc 385 Conclusion ATRIAL FIBRILLATION WITH RAPID VENTRICULAR RESPONSE WITH ABERRANT CONDUCTION OR VENTRICULAR PREMATURE COMPLEXES MODERATE INTRAVENTRICULAR CONDUCTION DELAY [110+ ms QRS DURATION] ST DEVIATION AND MODERATE T-WAVE ABNORMALITY, CONSIDER LATERAL ISCHEMIA [-0.1+ mV T-WAVE IN I/aVL/V5/V6] ABNORMAL ECG UNCONFIRMED REPORT Electronically signed by : Wilfredo Muñoz MD 06/22/2022 22:04:03
[2022-06-22 11:15] LABS: PTT Heparin (inpatient only) 31.7 Seconds (23.6-34.0)
--- NOTE | 2022-06-22 11:25 | EXP.CARD.CON ---
History of Present Illness History of Present Illness Consult date: 06/22/22 Requesting physician: Mick Herrera Consult reason: atrial fibrillation Chief complaint: AMS, CVA, A. fib with RVR, Meth overdose History of present illness: Mr. Vinod Ragland is a 47-year-old male with an unknown past medical history.? He was brought into the ER by EMS due to altered mental status.? In the Field he was given Narcan with no response.? He has a reported history of drug abuse. In the ER, urine drug screen was positive for Methamphetamines, he was tachycardic with a HR of 119, respiratory rate was 32, he was febrile at 103.? Lactate was elevated at 5.6.? GCS was 8.? He was unresponsive to commands and agitated.? In the ER, he was intubated for airway protection, cultures were drawn.? He was started on broad spectrum antibiotics.? He was noted to have wounds with drainage to bilateral lower extremities.? He will be admitted with initial impression:? Drug Overdose and Sepsis.? He will be transferred from the ER to the ICU.? He was given a fluid bolus per sepsis protocol in the ER and started on broad spectrum antibiotics.? Anesthesia has been consulted to perform LP.? Patient intubated and sedated on my exam.? Unable to obtain any further history.? No family at bedside that is available as questions 2. ADDENDUM Head CT ordered and obtained in the ER prior to transfer to floor given patient's altered mental status.? Read on CT came back unfortunately showing a lacunar infarct infarct adjacent to the anterior horn of the left lateral ventricle, age-indeterminate.? We will continue to hold on anticoagulation.? Condition complicated by patient's cirrhosis and thrombocytopenia.? Unable to assess focal neurologic exam given intubation and sedation.? No known history of stroke per chart review.? I have also reviewed patient's chart from via [employer].? Patient recently admitted last month to for worsening cellulitis of his legs. Review of chart shows no previous head imaging to compare to. He does however have a history of C. difficile back in January.? Will obtain stool as he has diarrhea, may be secondary to lactulose or recent antibiotics however high risk for C. difficile as well. Given suspected new finding of lacunar infarct in light of his other comorbidities specifically decompensated cirrhosis, thrombocytopenia, coagulopathy, prognosis is guarded.? Patient is critically ill.? We will attempt to reach out to have a discussion with family/next of kin to discuss goals of care.? Further management pending clinical improvement and ability to extubate patient and perform neurologic exam. The above per Dr. Whyte on admission, 06/19/2022 Patient was extubated yesterday 06/21/2022. He is on antibiotics for positive blood cultures growing strep dysgalactiae. Echo on 06/20/2022 no evidence of endocarditis noted. Recent wound cultures positive for Pseudomonas, Klebsiella, MRSA and providencia. Due to thrombocytopenia patient has been transfused 4 units of platelets and 2 units of FFP on 06/19/2022. Cardiology consulted for atrial fibrillation with a rapid ventricular response. Initially this has been treated with metoprolol but due to low blood pressure this was discontinued. We will attempt to control rate with digoxin. Echocardiogram from 2 days ago was read as an EF of 50% but images appear to show reduced EF. Will discuss with Dr. Ortiz for review. [facility] Medical History Chronic pain Cirrhosis COPD (chronic obstructive pulmonary disease) Hypertension Family History Heart disease Social History Smoking Status: Current every day smoker tobacco type: smokeless tobacco second hand exposure: Yes alcohol intake: former substance use type: crack/cocaine and methamphetamine current occupational status: disabled
--- NOTE | 2022-06-22 12:07 | PC.NURSE ---
Pt off unit to MRI at this time with Macarena Crenshaw RN
--- NOTE | 2022-06-22 14:06 | CT_ITS ---
FINAL REPORT CLINICAL HISTORY: Right ankle pain and swelling possible right ankle sepsis FINDINGS: CT RIGHT FOOT WITHOUT CONTRAST TECHNIQUE: Axial, reformatted, and 3D images were obtained of the right foot. This study was performed with techniques to keep radiation doses as low as reasonably achievable, (ALARA). Individualized dose reduction techniques using automated exposure control or adjustment of mA and/or kV according to the patient's size were employed. FINDINGS: Images are degraded by patient motion. No fracture is identified. An os trigonum is noted. There is a small plantar spur. The mortise is intact. There is no bony erosion. There is prominent soft tissue edema over the dorsum of the foot measuring 2 cm. IMPRESSION: Soft tissue edema about the foot. No bony erosion identified. Reviewed, Interpreted and Dictated by Joe Benavidez MD Transcribed by Meli Cordero Authenticated and [facility]
--- NOTE | 2022-06-22 14:34 | HMH.ITSTN ---
MULTIPLE ATTEMPTS MADE TO DO MRI, PT WAS GIVEN MEDS MULTIPLE TIMES BY NURSE RICK. PT VERY AGITATED AND RESTLESS, COULD NOT GET DIAGNOSTIC IMAGES DUE TO PATIENT MOVING.
--- NOTE | 2022-06-22 17:14 | EXP.ORTH.PN ---
Subjective *Date: 06/22/22 *Time: 22:00 Interval history: This afternoon the patient is lying comfortably in bed. He is sleepy but responsive to loud verbal stimuli. Per nursing staff, patient has been restless and agitated. Ortho Exam (Inpt) Vital signs and Labs for Last 24 Hours: Temp Pulse Resp BP Pulse Ox FiO2 98.3 F 140 H 17 118/91 H 98 40 06/22/22 10:00 06/22/22 15:34 06/22/22 10:00 06/22/22 14:30 06/22/22 14:30 06/21/22 06:43 Laboratory Results - last 24 hr 06/21/22 21:34: Lactate 2.5 H 06/21/22 21:58: Vancomycin Trough 23.2 H 06/22/22 01:27: Lactate 2.4 H 06/22/22 01:27: Vancomycin Peak 33.1 06/22/22 07:58: WBC 12.2 H, RBC 4.31 L, Hgb 13.8 L, Hct 44.3, MCV 102.8 H, MCH 32.1 H, MCHC 31.2 L, RDW 16.4, Plt Count 96 L, MPV 9.8, Neut % (Auto) 74.3, Lymph % (Auto) 16.1, [place] % (Auto) 8.3, Eos % (Auto) 0.7, Baso % (Auto) 0.7, Neut # (Auto) 9.0 H, Lymph # (Auto) 2.0, [place] # (Auto) 1.0, Eos # (Auto) 0.1, Baso # (Auto) 0.1 06/22/22 07:58: Sodium 145, Potassium 4.2, Chloride 110 H, Carbon Dioxide 26, Anion Gap 13.2, BUN 30 H, Creatinine 0.80, Estimated Creat Clear 182, Estimated GFR 103, Est GFR ( Amer) 124, Glucose 89, Calcium 8.2 L, Total Bilirubin 4.2 H, AST 66 H, ALT 31, Alkaline Phosphatase 150 H, Total Protein 5.9 L, Albumin 2.2 L D, Globulin 3.7 H, Albumin/Globulin Ratio 0.6 L 06/22/22 07:58: Ammonia 30 06/22/22 07:58: Troponin I 0.03, NT-Pro-B Natriuret Pep 4470 H 06/22/22 10:45: APTT 31.7 I & O for Labs for Last 24 Hours: Intake & Output 06/19/22 06/20/22 06/21/22 06/22/22 23:59 23:59 23:59 23:59 Intake Total 2250 / 2250 2137 / 2137 1448 / 1448 Output Total 2752 / 2752 1682 / 1682 750 / 750 Balance -502 / -502 455 / 455 698 / 698 Weight 274 lb 2.987 oz 253 lb 5.011 oz Microbiology Reports for the Last 24 Hours: Microbiology 06/20/22 16:00 Blood Blood Culture - Preliminary NO GROWTH AFTER 48 HOURS 06/20/22 16:00 Blood Blood Culture - Preliminary NO GROWTH AFTER 48 HOURS 06/19/22 08:05 Cerebral Spinal Fluid Gram Stain - Final 06/19/22 08:05 Cerebral Spinal Fluid CSF Culture - Preliminary NO GROWTH AFTER 72 HOURS 06/19/22 05:50 Sputum - Endotracheal Tube Aspirate Gram Stain - Final 06/19/22 05:50 Sputum - Endotracheal Tube Aspirate Sputum Culture - Preliminary 06/19/22 16:00 Leg,Right Gram Stain - Final 06/19/22 16:00 Leg,Right Wound Culture - Preliminary Gram Positive Cocci 06/19/22 16:00 Leg,Left Gram Stain - Final 06/19/22 16:00 Leg,Left Wound Culture - Preliminary Gram Positive Cocci Gram Positive Cocci#2 Gram Positive Cocci#3 Constitutional: Present mild distress, obese and chronically ill appearing Head: Present normocephalic and atraumatic ENT: Present normal exam Neck: Present normal inspection, full ROM and trachea midline; Absent lymphadenopathy Respiratory: Present normal respiratory effort and symmetric chest movement; Absent accessory muscle use or respiratory distress Cardiac: Present Reg Rate and Rhythm and radial pulses present GI: Present soft; Absent tenderness Rectal (male): Present deferred (male): Present deferred Comment:: Upon examination of the right lower extremity: Dressing present over the right ankle is clean, dry, and intact. No evidence of drainage or bleeding noted. There are several small excoriations present surrounding the calf and ankle. There is extensive diffuse erythema and 3+ edema extending from the dorsum of the foot to the ankle and calf. Thigh and calf are soft; palpation of the right calf, foot, and ankle elicits pain. Passive extension of the great toe is nonpainful. No evidence of DVT or compartment syndrome noted. Posterior tibial pulse 1+; distal neurovascular status grossly intact. sensation to light touch
--- NOTE | 2022-06-22 17:26 | PC.NURSE ---
Spoke with Jeremie Hunter on update for pt. HR is still in 120-130's following 2nd dose of dig that was ordered for 1630. Per Yunier give pt 10mg diltizem bolus and start drip at rate of 10mg/hr. if pt does not tolerate Diltiazem, contact Ariela or Dr Downey for further orders on changing pt to Amiodarone drip. [id number]
--- NOTE | 2022-06-22 18:37 | PC.NURSE ---
Order obtained from FABIANO Hernandez to give second dose of digoxin at 1600 if patient could tolerate dose with blood pressure. Second dose given but heart rate still elevated. Diltiazem drip started after bolus given. Patient tolerating well and heart rate between 110-118. Blood pressures stable. Patient still sedated from haldol, benadryl, and ativan given while trying to obtain MRI. MRI cancelled after an hour and a half of trying to obtain images. CT scan ordered and obtained. Patient beginning to get restless in bed, leads replaced, pulse ox replaced several times. Lung sounds still diminished in top lungs and inspiratory rhonchi at bases.
--- NOTE | 2022-06-22 20:11 | PC.NURSE ---
HR staying in 120's, increased dilt drip to 15mg/hr
[2022-06-23] VITALS (15 sets, daily range): BP systolic 130–163; BP diastolic 51–92; PULSE 68–117; RESP 12–24; TEMP 36.4–36.9; O2SAT 92–100; BMI 38.5
[2022-06-23 06:00] LABS: Basophils # 0.1 K/mm3 (0-0.2); Basophils % 0.8 % (0.1-2.0); Eosinophils # 0.1 K/mm3 (0.0-0.4); Eosinophils % 1.6 % (0.1-12.0); Hematocrit 42.6 % (42.0-52.0); Hemoglobin 12.9 g/dL (14.1-18.0); Lymphocytes # 1.3 K/mm3 (0.7-4.5); Lymphocytes % 17.8 % (10-50); Mean Corpuscular HGB Conc 30.3 g/dL (31.8-35.4); Mean Corpuscular Hemoglobin 31.5 pg (27.0-31.2); Mean Corpuscular Volume 104.1 fl (80-94); Mean Platelet Volume 9.1 fl (7.4-10.4); Monocytes # 0.7 K/mm3 (0.1-1.0); Monocytes % 10.2 % (1.7-9.3); Neutrophils % 69.6 % (37.0-80.0); Platelet Count 89 K/mm3 (142-424); Red Blood Count 4.09 M/mm3 (4.60-6.20); Red Cell Distribution Width 16.7 % (11.5-17.5); White Blood Count 7.2 K/mm3 (4.8-10.8)
[2022-06-23 06:45] LABS: Alanine Aminotransferase 29 U/L (12-78); Albumin Level 2.5 g/dl (3.5-5.0); Albumin/Globulin Ratio 0.6 (1.1-1.8); Alkaline Phosphatase 136 U/L (38-126); Anion Gap 13.9 mEq/L (5-15); Aspartate Amino Transferase 49 U/L (17-59); Bilirubin,Total 3.4 mg/dl (0.2-1.3); Blood Urea Nitrogen 33 mg/dl (9-20); Calcium 8.6 mg/dl (8.4-10.2); Carbon Dioxide 28 mmol/L (22.0-30.0); Chloride 112 mmol/L (98-107); Creatinine Clearance Estimated 186 mL/min (50-200); Estimated Glomerular Filt Rate 103 ml/min (>60); GFR (African American) 124 ML/MIN (>60); Globulin 3.9 g/dL (1.3-3.2); Glucose 109 mg/dl (74-100); Potassium 3.9 mmoL/L (3.5-5.1); Total Protein,Serum 6.4 g/dl (6.3-8.2)
[2022-06-23 06:57] LABS: Sodium 150 mmol/L (136-145)
--- NOTE | 2022-06-23 06:57 | PC.NURSE ---
notified MD Herrera of pt's critical sodium of 150, no new orders at this time
--- NOTE | 2022-06-23 07:25 | PC.NURSE ---
CARDIZEM DECREASED TO 5ML/HR
--- NOTE | 2022-06-23 08:00 | PC.NURSE ---
isak on hold per cardiology
--- NOTE | 2022-06-23 08:17 | PC.NURSE ---
PO morning meds held due to pt being unable to swallow and no ng/og tube
--- NOTE | 2022-06-23 09:15 | EXP.CARD.PN ---
Subjective Subjective Date: 06/23/22 Time: 09:16 Principal diagnosis: AMS, A. fib, Drug overdose Interval history: 47-year-old white male in bed. Continues to display atrial fibrillation on telemetry but now with controlled rate after starting IV diltiazem yesterday. Unresponsive to verbal or light physical stimuli. Exam Data for Last 24 hours Vital signs and Labs for Last 24 Hours: Temp Pulse Resp BP Pulse Ox FiO2 97.9 F 80 12 149/51 H 92 L 40 06/23/22 07:57 06/23/22 08:00 06/23/22 08:00 06/23/22 08:00 06/23/22 08:00 06/21/22 06:43 Laboratory Results - last 24 hr 06/22/22 10:45: APTT 31.7 06/23/22 05:55: WBC 7.2 D, RBC 4.09 L, Hgb 12.9 L, Hct 42.6, MCV 104.1 H, MCH 31.5 H, MCHC 30.3 L, RDW 16.7, Plt Count 89 L, MPV 9.1, Neut % (Auto) 69.6, Lymph % (Auto) 17.8, [place] % (Auto) 10.2 H, Eos % (Auto) 1.6, Baso % (Auto) 0.8, Neut # (Auto) 5.0, Lymph # (Auto) 1.3, [place] # (Auto) 0.7, Eos # (Auto) 0.1, Baso # (Auto) 0.1 06/23/22 05:55: Sodium 150 H, Potassium 3.9, Chloride 112 H, Carbon Dioxide 28, Anion Gap 13.9, BUN 33 H, Creatinine 0.80, Estimated Creat Clear 186, Estimated GFR 103, Est GFR ( Amer) 124, Glucose 109 H D, Calcium 8.6, Total Bilirubin 3.4 H, AST 49 D, ALT 29, Alkaline Phosphatase 136 H, Total Protein 6.4, Albumin 2.5 L D, Globulin 3.9 H, Albumin/Globulin Ratio 0.6 L I & O for Last 24 hours: Intake & Output 06/20/22 06/21/22 06/22/22 06/23/22 11:59 11:59 11:59 11:59 Intake Total 2560 / 2910 3157 / 3157 1987 2437 / 2437 Output Total 3185 / 3245 2319 / 2319 1260 / 1260 1050 / 1050 Balance -625 / -335 838 / 838 728 / 728 1387 / 1387 Weight 274 lb 2.987 oz 253 lb 5.011 oz 260 lb 2 oz Microbiology Reports for the Last 24 Hours: Microbiology 06/19/22 16:00 Leg,Left Gram Stain - Final 06/19/22 16:00 Leg,Left Wound Culture - Preliminary Staphylococcus simulans Corynebacterium jeikeium Gram Positive Cocci#3 06/19/22 05:50 Sputum - Endotracheal Tube Aspirate Gram Stain - Final 06/19/22 05:50 Sputum - Endotracheal Tube Aspirate Sputum Culture - Final Normal Respiratory Kell 06/20/22 16:00 Blood Blood Culture - Preliminary NO GROWTH AFTER 48 HOURS 06/20/22 16:00 Blood Blood Culture - Preliminary NO GROWTH AFTER 48 HOURS 06/19/22 08:05 Cerebral Spinal Fluid Gram Stain - Final 06/19/22 08:05 Cerebral Spinal Fluid CSF Culture - Preliminary NO GROWTH AFTER 72 HOURS 06/19/22 16:00 Leg,Right Gram Stain - Final 06/19/22 16:00 Leg,Right Wound Culture - Preliminary Gram Positive Cocci Constitutional Constitutional: somnolent *Routine Respiratory Exam Respiratory: Present rhonchi and diminished air movement *Routine Cardiovascular Exam Cardiovascular: Present irregularly irregular *Routine Extremities Exam Extremities: Present edema *Routine Neurological Exam Neurological: Absent alert Progress Note: A&P Assessment and plan (1) Sepsis: Status: Acute (2) Leg wound, left: Status: Acute (3) Left leg cellulitis: Status: Acute (4) Leg wound, right: Status: Acute (5) Cellulitis of right leg: Status: Acute (6) Atrial fibrillation: Status: Acute (7) Thrombocytopenia: Status: Acute Assessment and Plan Assessment and Plan for All Diagnoses:: 1.? A. fib with RVR on admission.? Unable to tolerate higher dose of metoprolol due to hypotension.? IV digoxin unsuccessful at rate control.? IV diltiazem started yesterday with good results. ? Holding anticoagulation due to thrombocytopenia, altered mental status, discovery of lacunar infarct of undetermined age.? Current [id number] score is at least 3 based on incomplete database. 2.? Suspected reduced ejection fraction/HFrEF with BNP greater than 4400.
--- NOTE | 2022-06-23 10:18 | EXP.ORTH.PN ---
Subjective *Date: 06/23/22 *Time: 10:18 Interval history: Still not reliably following commands Ortho Exam (Inpt) Vital signs and Labs for Last 24 Hours: Temp Pulse Resp BP Pulse Ox FiO2 97.9 F 80 12 149/51 H 92 L 40 06/23/22 07:57 06/23/22 08:00 06/23/22 08:00 06/23/22 08:00 06/23/22 08:00 06/21/22 06:43 Laboratory Results - last 24 hr 06/22/22 10:45: APTT 31.7 06/23/22 05:55: WBC 7.2 D, RBC 4.09 L, Hgb 12.9 L, Hct 42.6, MCV 104.1 H, MCH 31.5 H, MCHC 30.3 L, RDW 16.7, Plt Count 89 L, MPV 9.1, Neut % (Auto) 69.6, Lymph % (Auto) 17.8, [place] % (Auto) 10.2 H, Eos % (Auto) 1.6, Baso % (Auto) 0.8, Neut # (Auto) 5.0, Lymph # (Auto) 1.3, [place]irt # (Auto) 0.7, Eos # (Auto) 0.1, Baso # (Auto) 0.1 06/23/22 05:55: Sodium 150 H, Potassium 3.9, Chloride 112 H, Carbon Dioxide 28, Anion Gap 13.9, BUN 33 H, Creatinine 0.80, Estimated Creat Clear 186, Estimated GFR 103, Est GFR ( Amer) 124, Glucose 109 H D, Calcium 8.6, Total Bilirubin 3.4 H, AST 49 D, ALT 29, Alkaline Phosphatase 136 H, Total Protein 6.4, Albumin 2.5 L D, Globulin 3.9 H, Albumin/Globulin Ratio 0.6 L I & O for Labs for Last 24 Hours: Intake & Output 06/20/22 06/21/22 06/22/22 06/23/22 23:59 23:59 23:59 23:59 Intake Total 2250 / 2250 2137 / 2137 2196 / 2196 1689 / 1689 Output Total 2752 / 2752 1682 / 1682 1400 / 1550 750 / 750 Balance -502 / -502 455 / 455 796 / 646 939 / 939 Weight 274 lb 2.987 oz 253 lb 5.011 oz 260 lb 2 oz Microbiology Reports for the Last 24 Hours: Microbiology 06/19/22 16:00 Leg,Left Gram Stain - Final 06/19/22 16:00 Leg,Left Wound Culture - Preliminary Staphylococcus simulans Corynebacterium jeikeium Gram Positive Cocci#3 06/19/22 05:50 Sputum - Endotracheal Tube Aspirate Gram Stain - Final 06/19/22 05:50 Sputum - Endotracheal Tube Aspirate Sputum Culture - Final Normal Respiratory Kell 06/20/22 16:00 Blood Blood Culture - Preliminary NO GROWTH AFTER 48 HOURS 06/20/22 16:00 Blood Blood Culture - Preliminary NO GROWTH AFTER 48 HOURS 06/19/22 08:05 Cerebral Spinal Fluid Gram Stain - Final 06/19/22 08:05 Cerebral Spinal Fluid CSF Culture - Preliminary NO GROWTH AFTER 72 HOURS 06/19/22 16:00 Leg,Right Gram Stain - Final 06/19/22 16:00 Leg,Right Wound Culture - Preliminary Gram Positive Cocci Head: Present normocephalic and atraumatic ENT: Present mucous membranes moist Neck: Present normal inspection Respiratory: Present normal respiratory effort and symmetric chest movement; Absent accessory muscle use or respiratory distress Cardiac: Present Reg Rate and Rhythm and radial pulses present GI: Present soft; Absent distention Neuro: Absent oriented x 3 Additional Findings:: Swelling and cellulitis are intervally improved. Assessment and Plan *Assessment and plan (1) Sepsis: Status: Acute Category: Medical Code(s): A41.9 - Sepsis, unspecified organism (2) Leg wound, left: Status: Acute Qualifiers: Encounter type: initial encounter Qualified Code(s): S81.802A - Unspecified open wound, left lower leg, initial encounter Category: Medical Code(s): S81.802A - Unspecified open wound, left lower leg, initial encounter (3) Left leg cellulitis: Status: Acute Category: Medical Code(s): L03.116 - Cellulitis of left lower limb (4) Leg wound, right: Status: Acute Qualifiers: Encounter type: initial encounter Qualified Code(s): S81.801A - Unspecified open wound, right lower leg, initial encounter Category: Medical Code(s): S81.801A - Unspecified open wound, right lower leg, initial encounter (5) Cellulitis of right leg: Status: Acute Category: Medical
--- NOTE | 2022-06-23 10:46 | P.PN_ITS ---
Subjective *Date: 06/23/22 *Time: 10:46 Ortho Exam (Inpt) Vital signs and Labs for Last 24 Hours: Temp Pulse Resp BP Pulse Ox FiO2 97.9 F 80 12 149/51 H 92 L 40 06/23/22 07:57 06/23/22 08:00 06/23/22 08:00 06/23/22 08:00 06/23/22 08:00 06/21/22 06:43 Laboratory Results - last 24 hr 06/22/22 10:45: APTT 31.7 06/23/22 05:55: WBC 7.2 D, RBC 4.09 L, Hgb 12.9 L, Hct 42.6, MCV 104.1 H, MCH 31.5 H, MCHC 30.3 L, RDW 16.7, Plt Count 89 L, MPV 9.1, Neut % (Auto) 69.6, Lymph % (Auto) 17.8, [place] % (Auto) 10.2 H, Eos % (Auto) 1.6, Baso % (Auto) 0.8, Neut # (Auto) 5.0, Lymph # (Auto) 1.3, [place] # (Auto) 0.7, Eos # (Auto) 0.1, Baso # (Auto) 0.1 06/23/22 05:55: Sodium 150 H, Potassium 3.9, Chloride 112 H, Carbon Dioxide 28, Anion Gap 13.9, BUN 33 H, Creatinine 0.80, Estimated Creat Clear 186, Estimated GFR 103, Est GFR ( Amer) 124, Glucose 109 H D, Calcium 8.6, Total Bilirubin 3.4 H, AST 49 D, ALT 29, Alkaline Phosphatase 136 H, Total Protein 6.4, Albumin 2.5 L D, Globulin 3.9 H, Albumin/Globulin Ratio 0.6 L I & O for Labs for Last 24 Hours: Intake & Output 06/20/22 06/21/22 06/22/22 06/23/22 23:59 23:59 23:59 23:59 Intake Total 2250 / 2250 2137 / 2137 2196 / 2196 1689 / 1689 Output Total 2752 / 2752 1682 / 1682 1400 / 1550 750 / 750 Balance -502 / -502 455 / 455 796 / 646 939 / 939 Weight 274 lb 2.987 oz 253 lb 5.011 oz 260 lb 2 oz Microbiology Reports for the Last 24 Hours: Microbiology 06/19/22 16:00 Leg,Left Gram Stain - Final 06/19/22 16:00 Leg,Left Wound Culture - Preliminary Staphylococcus simulans Corynebacterium jeikeium Gram Positive Cocci#3 06/19/22 05:50 Sputum - Endotracheal Tube Aspirate Gram Stain - Final 06/19/22 05:50 Sputum - Endotracheal Tube Aspirate Sputum Culture - Final Normal Respiratory Kell 06/20/22 16:00 Blood Blood Culture - Preliminary NO GROWTH AFTER 48 HOURS 06/20/22 16:00 Blood Blood Culture - Preliminary NO GROWTH AFTER 48 HOURS 06/19/22 08:05 Cerebral Spinal Fluid Gram Stain - Final 06/19/22 08:05 Cerebral Spinal Fluid CSF Culture - Preliminary NO GROWTH AFTER 72 HOURS 06/19/22 16:00 Leg,Right Gram Stain - Final 06/19/22 16:00 Leg,Right Wound Culture - Preliminary Gram Positive Cocci Assessment and Plan *Assessment and plan (1) Cellulitis of right leg: Status: Acute Category: Medical Code(s): L03.115 - Cellulitis of right lower limb Plan Right ankle aspirate yielded less than 1 cc of straw-colored synovial fluid. The volume was not enough for cell count. Plan to send cultures, follow cultures.
--- NOTE | 2022-06-23 11:38 | DIET.NUTRFU ---
Rounded with provider this AM, Patient still very lethargic and sedated. [employer] has been unable to eval. Dr. Herrera discontinued all sedative medications today hoping her would become more alert. IVF continues for hydration, Na elevated at 150. Edema appeared better today, lasix continues.
--- NOTE | 2022-06-23 14:20 | PC.NURSE ---
Pt has been resting in bed this shift. He has been restless and agitated at times, mitts are in place. He will awaken to voice but is unable to follow commands. Swallow eval unable to completed due to this. Cardizem drip off at 0800. HR has been 70's-80's since. Afib on telemetry. HE is on RA with O2 sats measuring mid 90's. +2 edema to BUE and BLE. +3 to right ankle. Erythema to BLE. Dressings to RLE are clean, dry, and intact. Unna boot w/coban and SCD to LLE. Large bruise to right upper arm. Multiple small scabs to BUE's. Excoriation to groin. Stage 1 to coccyx and scattered areas of erythema/irritation. His so is bedside draining clear, straw colored urine. Bed is locked and in the lowest position, call light is within reach.
--- NOTE | 2022-06-23 15:00 | EXP.PN ---
Subjective *Date: 06/23/22 *Time: 15:00 Interval history: No acute events overnight, patient was given Ativan 1 mg IV just after midnight and then another dose at 5 AM this morning. Otherwise patient has not had any other sedating medicines today. Exam Data for Last 24 hours Vital signs and Labs for Last 24 Hours: Temp Pulse Resp BP Pulse Ox FiO2 97.9 F 89 17 139/59 L 94 L 40 06/23/22 07:57 06/23/22 14:00 06/23/22 14:00 06/23/22 14:00 06/23/22 14:00 06/21/22 06:43 Laboratory Results - last 24 hr 06/23/22 05:55: WBC 7.2 D, RBC 4.09 L, Hgb 12.9 L, Hct 42.6, MCV 104.1 H, MCH 31.5 H, MCHC 30.3 L, RDW 16.7, Plt Count 89 L, MPV 9.1, Neut % (Auto) 69.6, Lymph % (Auto) 17.8, [place] % (Auto) 10.2 H, Eos % (Auto) 1.6, Baso % (Auto) 0.8, Neut # (Auto) 5.0, Lymph # (Auto) 1.3, [place] # (Auto) 0.7, Eos # (Auto) 0.1, Baso # (Auto) 0.1 06/23/22 05:55: Sodium 150 H, Potassium 3.9, Chloride 112 H, Carbon Dioxide 28, Anion Gap 13.9, BUN 33 H, Creatinine 0.80, Estimated Creat Clear 186, Estimated GFR 103, Est GFR ( Amer) 124, Glucose 109 H D, Calcium 8.6, Total Bilirubin 3.4 H, AST 49 D, ALT 29, Alkaline Phosphatase 136 H, Total Protein 6.4, Albumin 2.5 L D, Globulin 3.9 H, Albumin/Globulin Ratio 0.6 L I & O for Last 24 hours: Intake & Output 06/20/22 06/21/22 06/22/22 06/23/22 23:59 23:59 23:59 23:59 Intake Total 2250 / 2250 2137 / 2137 2196 / 2196 2628 / 2628 Output Total 2752 / 2752 1682 / 1682 1400 / 1550 2049 Balance -502 / -502 455 / 455 796 / 646 578 / 578 Weight 124.369 kg 114.901 kg 117.991 kg Microbiology Reports for the Last 24 Hours: Microbiology 06/19/22 08:05 Cerebral Spinal Fluid Gram Stain - Final 06/19/22 08:05 Cerebral Spinal Fluid CSF Culture - Preliminary NO GROWTH AFTER 4 DAYS 06/19/22 16:00 Leg,Left Gram Stain - Final 06/19/22 16:00 Leg,Left Wound Culture - Preliminary Staphylococcus simulans Corynebacterium jeikeium Gram Positive Cocci#3 06/19/22 05:50 Sputum - Endotracheal Tube Aspirate Gram Stain - Final 06/19/22 05:50 Sputum - Endotracheal Tube Aspirate Sputum Culture - Final Normal Respiratory Kell 06/20/22 16:00 Blood Blood Culture - Preliminary NO GROWTH AFTER 48 HOURS 06/20/22 16:00 Blood Blood Culture - Preliminary NO GROWTH AFTER 48 HOURS Constitutional Constitutional: mild distress (less restless today, still altered and confused ), obese, chronically ill appearing and somnolent *Routine HEENT Exam Head: Present normocephalic and atraumatic Eye: Present EOMI (unable to be tested as pt doesn't open eyes spontaneously and doesn't follow commands) and PERRL (pupils less constricted today, minimally reactive to light ); Absent periorbital ecchymosis or periorbital swelling ENT: Present mucous membranes dry; Absent dentition normal *Routine Neck Exam Neck: Present supple *Routine Respiratory Exam Respiratory: Present rhonchi (diffusely ) and diminished air movement; Absent accessory muscle use or respiratory distress *Routine Cardiovascular Exam Cardiovascular: Present tachycardia and irregularly irregular; Absent murmur *Routine Abdominal Exam Abdominal: Present soft; Absent tenderness, distended or guarding *Routine Extremities Exam Extremities: Present edema (bilaterally, improving daily ), tenderness (rght ankle ) and joint swelling (right ankle ) Comments: changes of chronic venous stasis on bilateral shins. Stasis ulcers present, unchanged. right ankle is red, swollen, warm, but less tender today compared to yesterday in setting of patient with GCS of 9. *Routine Skin Exam Comments: Changes of chronic venous stasis on bilateral shins, both legs are stained red, with open lesions on distal, medial ankles bilaterally compatible with stasis ulcers. *Routin
[2022-06-23 16:02] LABS: Lactic Acid 1.9 mmol/L (0.7-2.1)
--- NOTE | 2022-06-23 17:56 | PC.NURSE ---
Notified by that she received a call from [facility] saying patient has been accepted but no bed available at this time.
[2022-06-24] VITALS (10 sets, daily range): BP systolic 145–165; BP diastolic 78–94; PULSE 70–116; RESP 16–22; TEMP 36.4–36.8; O2SAT 92–100; BMI 38.5
--- NOTE | 2022-06-24 08:00 | PC.NURSE ---
Spoke with , gave them update on pt, no beds available at this time
[2022-06-24 08:30] LABS: Basophils # 0.1 K/mm3 (0-0.2); Eosinophils # 0.2 K/mm3 (0.0-0.4); Eosinophils % 4.2 % (0.1-12.0); Hematocrit 38.2 % (42.0-52.0); Lymphocytes % 21.2 % (10-50); Mean Corpuscular HGB Conc 31.3 g/dL (31.8-35.4); Mean Corpuscular Hemoglobin 32.7 pg (27.0-31.2); Mean Corpuscular Volume 104.6 fl (80-94); Mean Platelet Volume 9.4 fl (7.4-10.4); Monocytes # 0.4 K/mm3 (0.1-1.0); Monocytes % 9.3 % (1.7-9.3); Neutrophils # 2.9 K/mm3 (1.8-7.8); Neutrophils % 64.4 % (37.0-80.0); Platelet Count 112 K/mm3 (142-424); Red Blood Count 3.65 M/mm3 (4.60-6.20); White Blood Count 4.5 K/mm3 (4.8-10.8)
[2022-06-24 08:42] LABS: Alanine Aminotransferase 27 U/L (12-78); Albumin Level 2.5 g/dl (3.5-5.0); Albumin/Globulin Ratio 0.6 (1.1-1.8); Alkaline Phosphatase 136 U/L (38-126); Anion Gap 9.6 mEq/L (5-15); Aspartate Amino Transferase 51 U/L (17-59); Bilirubin,Total 3.7 mg/dl (0.2-1.3); Blood Urea Nitrogen 26 mg/dl (9-20); Calcium 8.7 mg/dl (8.4-10.2); Carbon Dioxide 30 mmol/L (22.0-30.0); Chloride 117 mmol/L (98-107); Creatinine Clearance Estimated 249 mL/min (50-200); Estimated Glomerular Filt Rate 143 ml/min (>60); GFR (African American) 173 ML/MIN (>60); Glucose 94 mg/dl (74-100); Potassium 3.6 mmoL/L (3.5-5.1); Total Protein,Serum 6.5 g/dl (6.3-8.2)
[2022-06-24 08:45] LABS: Lactic Acid 2.1 mmol/L (0.7-2.1)
[2022-06-24 08:46] LABS: Sodium 153 mmol/L (136-145)
--- NOTE | 2022-06-24 09:53 | PC.NURSE ---
Gave [facility] an update, no beds available at this time
--- NOTE | 2022-06-24 10:12 | HMH.PTEV ---
Physical Therapy Evaluation Rehab PT IP Evaluation Start: 06/24/22 09:06 Freq: ONCE Status: Active Protocol: Document 06/24/22 10:07 SHAE (Rec: 06/24/22 10:12 SHAE [id number]) Subjective/History History History Mr. Vinod Ragland is a 47- year-old male with an unknown past medical history. He was brought into the ER by EMS due to altered mental status. In the Field he was given Narcan with no response. He has a reported history of drug abuse . In the ER, urine drug screen was positive for Methamphetamines, he was tachycardic with a HR of 119, respiratory rate was 32, he was febrile at 103. Lactate was elevated at 5.6. GCS was 8. He was unresponsive to commands and agitated. Subjective Subjective Pt speech garbled and slurred - difficult to understand Rehab PT IP Eval Objective Appearance Patient Behavior Anxious,Restless,Confused Difficulty following instructions moderate Speech Pattern Slurred,Garbled,Rambling, Mumbled Ambulation Patient Able to Ambulate No Ambulation Observation IP General Gait Pattern Observation Wide Based Gait,Shuffling Step ,Trunk Posterior to JONATHON, Decrease Stride Lngth (R), Decrease Stride Lngth (L) Ambulation Distance (feet) 2 Ambulation Assistive Device None Ambulation Ability Maximum x 2 (75% assist) Balance Ability to Arise Unable Sitting Balance Leans or slides in chair Standing Balance Unsteady Dynamic Sitting Balance Ability Poor Dynamic Standing Balance Ability Poor Transfers Bed Transfer Ability Maximum x 2 (75% assist) Chair Transfer Ability Maximum x 2 (75% assist) Sit to Stand Bed Transfer Ability Maximum x 2 (75% assist) Sit to Stand Chair Transfer Ability Maximum x 2 (75% assist) Rehab PT IP prob,goals,plan Problems Date of Evaluation: 06/24/22 PT IP Problems Bed Mobility,Transfers,Gait, Balance,Self care,Safety Rehab Potential Rehab Potential Poor Plan PT Intervention Plan Bed Mobility,Transfers,Gait, Balance,Self care,Safety, Therape
--- NOTE | 2022-06-24 10:20 | HMH.OTEV ---
OT Inpatient Evaluation Rehab OT IP Evaluation Start: 06/24/22 09:07 Freq: ONCE Status: Complete Protocol: Document 06/24/22 10:04 [facility] (Rec: 06/24/22 10:19 [facility] [id number]) Rehab OT IP Assessment Subjective History Pt oriented x 1 on arrival. Pt would not open eyes during evaluation without max verbal cueing. Pt was admitted via ED on 06/19/22 due to altered mental status. Pt was found unresponsive, positive for Methamphetamines, and eventually discovered a lacunar infarct infarct adjacent to the anterior horn of the left. Therapist unaware of his prior ADL independence or functional ability due to pt's poor communication. When therapist asked questions, he basically mumbled and kept his eyes shut. Pt has a past medical history of: Chronic pain Cirrhosis COPD (chronic obstructive pulmonary disease) Hypertension Subjective I am dying. Objective Patient Orientation Person Upper Extremity Gross ROM Min Limitation <25% Shoulder ROM Limitations Muscle Weakness Elbow ROM Limitations Muscle Weakness Wrist Limitations of Range of Motion Muscle Weakness Bed Mobility bed mobility-scooting,bed mobility - supine/sit,bed mobility - rolling Assist Level Maximum x 2 (75% assist) Transfer Training Sit/Stand/Step Transfer,Sit/ Stand/Pivot Transfer Assist Level Maximum x 2 (75% assist) Chair Transfer Ability Maximum x 2 (75% assist) Chair Transfer Technique Stand Step Pivot Rehab OT IP prob,goals,plan Problems Date of Evaluation: 06/24/22 OT IP Problems Bed Mobility,Transfers,Balance ,Self care,Safety Rehab Potential Rehab Potential Fair Equipment Needs Assistive Devices Rolling / Wheeled Walker Plan OT intervention Plan Bed Mobility,Transfers,Balance ,Self care,Safety,Therapeutic
--- NOTE | 2022-06-24 11:00 | HMH.SLDYSPHA ---
Speech & Language Evaluation Speech/Language Dysphagia Evaluation Start: 06/22/22 15:54 Freq: ONCE Status: Active Protocol: Document 06/24/22 10:48 ELIDA (Rec: 06/24/22 10:59 ELIDA [id number]) Dysphagia Assess/Goals/Plan Assessment Date of Evaluation: 06/24/22 Evaluation Type Initial Certification Assessment/Problems CSE completed, post extubation protocol per MD order. Does Patient Qualify for Service Yes Qualify/Failure Comment CIGAR PACKING EXAMINER will f/u with pt for diet tolerance 2' altered mental status. Recommendations PHYSICIAN CERTIFICATION: The specified therapy services are required, authorized, and reviewed every 30 days. Pt will be seen # times/week 1 for # weeks 1 Diet Recommendations Mechanical Soft Liquid Type Recommendations Normal/Thin SL Swallow Guidelines Assist w/all meals,Alt bite w/ sip thru meal,Standard Aspiration Prec.,Chk mough for pocketing Crush Meds Crush all meds Dysphagia Swallow Precautions/Strategies Sitting Upright (90 deg),Small Bites and Sips,Alternate Liquids/Solids Plan Anticipate reaching STG in # weeks 1 Anticipate reaching LTG in # weeks 1 Pt/Guardian verbally ack understanding Yes of dx/prognosis/goals G -code Required No STG-Other Comment/Non-Specific Pt will demonstrate diet tolerance per nursing report and clinical observation with 100% accuracy. Residential Goals Diet mech soft ground with sauces/ gravys with Liquids Thin Liquids Education Instructions provided CIGAR PACKING EXAMINER provided education of CSE results and diet recommendations to nurse & care management both of which expressed understanding. Pt/Caregiver able to recall information Able to recall/restate Reinforcement needed No Speech & Language HPI History Present Illness Description of Patient Problem Pt was admitted via ED on 06/19 due to altered mental status. Pt was found unresponsive, positive for Methamphetamines, and eventually discovered a lacunar infarct infarct adjacent to the anterior horn of the left. Unaware of pt's
--- NOTE | 2022-06-24 11:33 | DIET.NUTRFU ---
Patient was more responsive this AM during rounds. Requesting to go home. SECURITY ADMINISTRATOR was able to complete bedside swallow for MSOFT ground meats with gravies and sauces and thin liquids. Patient will need assistance with meals, his movements are not very coordinated at this time. OT and PT was also ordered. Now that oral diet is established will review ordering Vitamin C and Zinc with nursing for additional wound support along with 2 scoops of beneprotein in mashed potatoes adding additional 24gm protein/day for healing of status ulcers to BLE. His buttocks are excoriation but at high risk d/t limited mobility and unable to turn and reposition self.
--- NOTE | 2022-06-24 11:48 | EXP.CARD.PN ---
Subjective Subjective Date: 06/24/22 Time: 11:48 Principal diagnosis: AMS, A. fib, Drug overdose Interval history: 47-year-old white male in no acute distress. Patient slightly more alert today but still unable to answer questions. IV diltiazem has been discontinued with rate controlled now. Exam Data for Last 24 hours Vital signs and Labs for Last 24 Hours: Temp Pulse Resp BP Pulse Ox FiO2 98.1 F 111 H 22 149/88 H 92 L 40 06/24/22 08:00 06/24/22 10:11 06/24/22 08:00 06/24/22 08:00 06/24/22 08:00 06/21/22 06:43 Laboratory Results - last 24 hr 06/23/22 15:39: Lactate 1.9 06/24/22 08:18: Lactate 2.1 06/24/22 08:18: WBC 4.5 L D, RBC 3.65 L, Hgb 12.0 L, Hct 38.2 L, MCV 104.6 H, MCH 32.7 H, MCHC 31.3 L, RDW 17.0, Plt Count 112 L D, MPV 9.4, Neut % (Auto) 64.4, Lymph % (Auto) 21.2, [place] % (Auto) 9.3, Eos % (Auto) 4.2, Baso % (Auto) 1.0, Neut # (Auto) 2.9, Lymph # (Auto) 1.0, [place] # (Auto) 0.4, Eos # (Auto) 0.2, Baso # (Auto) 0.1 06/24/22 08:18: Sodium 153 H*, Potassium 3.6, Chloride 117 H, Carbon Dioxide 30, Anion Gap 9.6, BUN 26 H, Creatinine 0.60 L D, Estimated Creat Clear 249, Estimated GFR 143, Est GFR ( Amer) 173 D, Glucose 94, Calcium 8.7, Total Bilirubin 3.7 H, AST 51, ALT 27, Alkaline Phosphatase 136 H, Total Protein 6.5, Albumin 2.5 L, Globulin 4.0 H, Albumin/Globulin Ratio 0.6 L I & O for Last 24 hours: Intake & Output 06/21/22 06/22/22 06/23/22 06/24/22 11:59 11:59 11:59 11:59 Intake Total 3157 / 3157 1987 / 1987 2437 / 2437 2559 / 2559 Output Total 2319 / 2319 1260 / 1260 2350 / 2350 2900 / 2900 Balance 838 / 838 728 / 728 87 / 87 -341 / -341 Weight 253 lb 5.011 oz 260 lb 2 oz 260 lb 3.2 oz Microbiology Reports for the Last 24 Hours: Microbiology 06/23/22 10:40 Ankle,Right Gram Stain - Final 06/23/22 10:40 Ankle,Right Gram Stain - Final 06/19/22 08:05 Cerebral Spinal Fluid Gram Stain - Final 06/19/22 08:05 Cerebral Spinal Fluid CSF Culture - Preliminary NO GROWTH AFTER 4 DAYS 06/19/22 16:00 Leg,Left Gram Stain - Final 06/19/22 16:00 Leg,Left Wound Culture - Preliminary Staphylococcus simulans Corynebacterium jeikeium Gram Positive Cocci#3 06/19/22 05:50 Sputum - Endotracheal Tube Aspirate Gram Stain - Final 06/19/22 05:50 Sputum - Endotracheal Tube Aspirate Sputum Culture - Final Normal Respiratory Kell Constitutional Constitutional: no acute distress *Routine Respiratory Exam Respiratory: Present CTA bilaterally; Absent rhonchi or wheezes *Routine Cardiovascular Exam Cardiovascular: Present RRR *Routine Extremities Exam Extremities: Present edema; Absent cyanosis or clubbing Progress Note: A&P Assessment and plan (1) Severe sepsis with acute organ dysfunction: Status: Acute (2) Left sided lacunar infarction: Status: Acute (3) Cirrhosis: Status: Chronic (4) HFrEF (heart failure with reduced ejection fraction): Status: Acute (5) Hypomagnesemia: Status: Acute (6) Drug overdose: Status: Acute (7) Lower extremity cellulitis: Status: Acute (8) COPD (chronic obstructive pulmonary disease): Status: Chronic (9) Sepsis: Status: Acute (10) Leg wound, left: Status: Acute (11) Left leg cellulitis: Status: Acute (12) Leg wound, right: Status: Acute (13) Cellulitis of right leg: Status: Acute (14) Atrial fibrillation: Status: Acute (15) Thrombocytopenia: Status: Acute Assessment and Plan Assessment and Plan for All Diagnoses:: 1.? A. fib with RVR on admission but currently back in sinus rhythm. Diltiazem has been discontinued. Patient remains on metoprolol. CHADS-VASC score is at least 3. Lovenox has been started in setting of improved platelets. 2.? Suspected reduced ejection fraction/HFrEF (ejection fraction
--- NOTE | 2022-06-24 12:01 | EXP.PN ---
Subjective *Date: 06/24/22 *Time: 12:01 Interval history: No acute events overnight, patient has been off sedation for greater than 24 hours and he is gradually waking up more and more. This morning he reports he is feeling bad but also wants to go home. Exam Data for Last 24 hours Vital signs and Labs for Last 24 Hours: Temp Pulse Resp BP Pulse Ox FiO2 98.1 F 111 H 22 149/88 H 92 L 40 06/24/22 08:00 06/24/22 10:11 06/24/22 08:00 06/24/22 08:00 06/24/22 08:00 06/21/22 06:43 Laboratory Results - last 24 hr 06/23/22 15:39: Lactate 1.9 06/24/22 08:18: Lactate 2.1 06/24/22 08:18: WBC 4.5 L D, RBC 3.65 L, Hgb 12.0 L, Hct 38.2 L, MCV 104.6 H, MCH 32.7 H, MCHC 31.3 L, RDW 17.0, Plt Count 112 L D, MPV 9.4, Neut % (Auto) 64.4, Lymph % (Auto) 21.2, [place] % (Auto) 9.3, Eos % (Auto) 4.2, Baso % (Auto) 1.0, Neut # (Auto) 2.9, Lymph # (Auto) 1.0, [place] # (Auto) 0.4, Eos # (Auto) 0.2, Baso # (Auto) 0.1 06/24/22 08:18: Sodium 153 H*, Potassium 3.6, Chloride 117 H, Carbon Dioxide 30, Anion Gap 9.6, BUN 26 H, Creatinine 0.60 L D, Estimated Creat Clear 249, Estimated GFR 143, Est GFR ( Amer) 173 D, Glucose 94, Calcium 8.7, Total Bilirubin 3.7 H, AST 51, ALT 27, Alkaline Phosphatase 136 H, Total Protein 6.5, Albumin 2.5 L, Globulin 4.0 H, Albumin/Globulin Ratio 0.6 L I & O for Last 24 hours: Intake & Output 06/21/22 06/22/22 06/23/22 06/24/22 23:59 23:59 23:59 23:59 Intake Total 2137 / 2137 2196 / 2196 2628 / 2628 1620 / 1620 Output Total 1682 / 1682 1400 / 1550 2400 / 2400 2550 / 2550 Balance 455 / 455 796 / 646 228 / 228 -930 / -930 Weight 114.901 kg 117.991 kg 118.025 kg Microbiology Reports for the Last 24 Hours: Microbiology 06/23/22 10:40 Ankle,Right Gram Stain - Final 06/23/22 10:40 Ankle,Right Gram Stain - Final 06/19/22 08:05 Cerebral Spinal Fluid Gram Stain - Final 06/19/22 08:05 Cerebral Spinal Fluid CSF Culture - Preliminary NO GROWTH AFTER 4 DAYS 06/19/22 16:00 Leg,Left Gram Stain - Final 06/19/22 16:00 Leg,Left Wound Culture - Preliminary Staphylococcus simulans Corynebacterium jeikeium Gram Positive Cocci#3 06/19/22 05:50 Sputum - Endotracheal Tube Aspirate Gram Stain - Final 06/19/22 05:50 Sputum - Endotracheal Tube Aspirate Sputum Culture - Final Normal Respiratory Kell Constitutional Constitutional: mild distress (somewhat restless today, still confused but much more awake today), obese, chronically ill appearing and cooperative *Routine HEENT Exam Head: Present normocephalic and atraumatic Eye: Present PERRL; Absent periorbital ecchymosis or periorbital swelling ENT: Present mucous membranes dry and other (chronic macroglossia ); Absent dentition normal *Routine Neck Exam Neck: Present supple and full ROM *Routine Respiratory Exam Respiratory: Present rhonchi (diffusely ), crackles (bibasilar ) and diminished air movement; Absent accessory muscle use or respiratory distress *Routine Cardiovascular Exam Cardiovascular: Present RRR and tachycardia; Absent murmur *Routine Abdominal Exam Abdominal: Present soft and normoactive bowel sounds; Absent tenderness, distended or guarding *Routine Extremities Exam Extremities: Present edema (bilaterally, improving daily ), tenderness (rght ankle ) and joint swelling (right ankle ) Comments: changes of chronic venous stasis on bilateral shins. Stasis ulcers present, unchanged. right ankle is red, swollen, warm, but less tender today compared to yesterday in setting of patient with GCS of 9. *Routine Skin Exam Comments: Changes of chronic venous stasis on bilateral shins, both legs are stained red, with open lesions on distal, medial ankles bilaterally compatible with stasis ulcers. *Routine Neurological Exam Neurological: Present alert, altered mental status and moving all extremities; Absent
[2022-06-24 12:26] LABS: Reflex Lactic Add Lactic Reflex
[2022-06-24 14:00] LABS: Lactic Acid Follow Up (RFLX 1) 2.6 mmol/L (0.7-2.1)
[2022-06-24 15:46] LABS: Reflex Lactic (2 hrs) Add Lactic Reflex
[2022-06-24 16:04] LABS: Lactic Acid Follow up (RFLX 2) 1.8 mmol/L (0.7-2.1)
--- NOTE | 2022-06-24 17:39 | PC.NURSE ---
Pt is alert to self. He is able to move all 4 limbs and follow commands. Speech is very difficult to understand. He was up to the chair with assist from pt. He was moved back to the bed via mechanical lift due to safety. He was very restless and moving side to side in the chair making it unstable. He has drank quite a bit of water today, appetite has been fair. His so is to bedside draining clear, reji colored urine. One soft bm today. This afternoon pt's bed alarm sounded. Upon entering the room pt had turned onto his stomach and attempting to slide off onto the floor. He was assisted back to bed and bed alarm reset. Bed is locked and in the lowest position w/alarm set, call light is within reach.
--- NOTE | 2022-06-24 18:30 | PC.NURSE ---
[facility] called for update, no beds available at this time
[2022-06-24 21:20] LABS: Vancomycin,Trough 26.9 ug/mL (5.0-10.0)
--- NOTE | 2022-06-24 21:31 | PC.NURSE ---
Called nightwatch to report Vanc trough 26.9. Per Bello at nightwatch hold 21:00 dose tontimo.
[2022-06-25] VITALS (9 sets, daily range): BP systolic 131–168; BP diastolic 72–93; PULSE 68–80; RESP 16–20; TEMP 36.5–36.8; O2SAT 91–100; BMI 38.5
[2022-06-25 01:38] LABS: Vancomycin,Peak 22.9 ug/ml (11-39)
--- NOTE | 2022-06-25 02:10 | PC.NURSE ---
Raina with [facility] called for update, no bed available at this time.
--- NOTE | 2022-06-25 03:33 | PC.NURSE ---
Pt agitated and restless. IV stopped d/t pt pulling at tubing. Heart monitor removed by pt and he refuses to let us place in back on him.
--- NOTE | 2022-06-25 04:57 | PC.NURSE ---
Pt has been resistive to care since I received report on pt at 0100. Pt has attempted to get out of bed without assistance frequently. Pt has also requested an alcoholic beverage almost every time someone enters the room. No complaints stated to staff.
--- NOTE | 2022-06-25 06:25 | PC.NURSE ---
IV fluids restarted at this time
[2022-06-25 08:44] LABS: Chloride 112 mmol/L (98-107); Potassium 3.3 mmoL/L (3.5-5.1)
[2022-06-25 08:46] LABS: Alanine Aminotransferase 43 U/L (12-78); Alkaline Phosphatase 149 U/L (38-126); Anion Gap 11.3 mEq/L (5-15); Aspartate Amino Transferase 75 U/L (17-59); Bilirubin,Total 3.6 mg/dl (0.2-1.3); Blood Urea Nitrogen 21 mg/dl (9-20); Carbon Dioxide 31 mmol/L (22.0-30.0); Creatinine Clearance Estimated 213 mL/min (50-200); Estimated Glomerular Filt Rate 120 ml/min (>60); GFR (African American) 145 ML/MIN (>60)
[2022-06-25 08:47] LABS: Albumin Level 2.9 g/dl (3.5-5.0); Albumin/Globulin Ratio 0.7 (1.1-1.8); Ammonia 26 umol/L (9-30); Globulin 4.4 g/dL (1.3-3.2); Glucose 118 mg/dl (74-100); Total Protein,Serum 7.3 g/dl (6.3-8.2)
[2022-06-25 08:49] LABS: Sodium 151 mmol/L (136-145)
--- NOTE | 2022-06-25 08:52 | PC.NURSE ---
spoke with [facility] regarding pt update. still awaiting bed availability
--- NOTE | 2022-06-25 09:10 | EXP.PHA.CONS ---
Pharmacy Consult Date: 06/25/22 Time: 09:10 Referring provider: DR. CHANEY Reason for Consult:: VANCOMYCIN TROUGH LEVEL AND DOSE CHANGE Allergies Allergy/AdvReac Type Severity Reaction Status Date / Time codeine Allergy Severe Anaphylaxis Verified 05/20/22 13:20 guaifenesin [From Mucinex] Allergy Severe SWELLS Verified 05/20/22 13:20 ketorolac [From Toradol] Allergy Severe Difficulty Verified 05/20/22 13:20 Swallowing sulfamethoxazole AdvReac Intermediate Rash Verified 05/20/22 13:20 [From Bactrim] trimethoprim [From Bactrim] AdvReac Intermediate Rash Verified 05/20/22 13:20 Home Medications Medication Instructions Recorded Confirmed Type metoprolol succinate 25 mg 25 mg PO DAILY High blood pressure 11/16/21 06/19/22 History tablet,extended release 24 hr ibuprofen 800 mg tablet 800 mg PO TIDP PRN Moderate Pain 12/11/21 06/19/22 History potassium chloride 20 mEq 20 meq PO DAILY Supplement #90 tabs 02/15/22 06/19/22 Rx tablet,extended release aspirin 81 mg tablet,delayed 81 mg PO DAILY Blood thinner 05/19/22 06/19/22 History release fluticasone fur. 200 mcg-umeclid 1 inh inhalation DAILY COPD 06/03/22 06/19/22 History 62.5 mcg-vilant 25 mcg inhalat.powder (Trelegy Ellipta) lactulose 10 gram/15 mL oral 45 ml PO TID CONSTIPATION 06/03/22 06/19/22 History solution lisinopril 20 mg tablet 20 mg PO DAILY High blood pressure 06/03/22 06/19/22 History spironolactone 100 mg tablet 100 mg PO DAILY FLUID 06/03/22 06/19/22 History albuterol sulfate 90 mcg/actuation 2 puff inhalation QIDP PRN 06/19/22 06/19/22 History aerosol inhaler Shortness Of Breath gabapentin 600 mg tablet 600 mg PO TID NEUROPATHY 06/19/22 06/19/22 History hydrocodone 7.5 mg-acetaminophen 1 tab PO DAILYP PRN MODERATE TO 06/19/22 06/19/22 History 325 mg tablet SEVERE PAIN nystatin 100,000 unit/mL oral 100,000 unit buccal TID Infection 06/19/22 06/19/22 History suspension torsemide 20 mg tablet 20 mg PO 1600 Fluid 06/19/22 06/19/22 History torsemide 20 mg tablet 40 mg PO AM Fluid 06/19/22 06/19/22 History New Prescriptions to Start Prescriptions: Height: 1.75 m Weight: 118.025 kg Laboratory Results:: Laboratory Results - last 24 hr 06/24/22 13:35: Lactate 2.6 H 06/24/22 15:41: Lactate 1.8 06/24/22 20:30: Vancomycin Trough 26.9 H 06/25/22 01:05: Vancomycin Peak 22.9 06/25/22 08:30: Sodium 151 H*, Potassium 3.3 L, Chloride 112 H, Carbon Dioxide 31 H, Anion Gap 11.3, BUN 21 H, Creatinine 0.70, Estimated Creat Clear 213, Estimated GFR 120, Est GFR ( Amer) 145, Glucose 118 H, Calcium 9.0, Total Bilirubin 3.6 H, AST 75 H D, ALT 43 D, Alkaline Phosphatase 149 H, Total Protein 7.3, Albumin 2.9 L D, Globulin 4.4 H, Albumin/Globulin Ratio 0.7 L 06/25/22 08:30: Ammonia 26 Medical History: Medical History (Updated 06/23/22 @ 09:20 by FABIANO Jones) Chronic pain Cirrhosis COPD (chronic obstructive pulmonary disease) Hypertension Assessment and Plan Assessment and plan all Dx Assessment and Plan for all problems:: BASED ON PATIENT FACTORS AND VANCOMYCIN TROUGH LEVEL OF 26.9, RECOMMEND CHANGING DOSE TO VANCOMYCIN 2,000MG EVERY 18 HOURS WITH PREDICATED AUC OF 434.6. PHARMACY WILL CONTINUE TO MONITOR AND ADJUST DOSE APPROPRIATE. -SILVA BOWLES PHARMD
[2022-06-25 09:51] LABS: Creatine Kinase 89 U/L (55-170)
[2022-06-25 09:57] LABS: Eosinophils # 0.2 K/mm3 (0.0-0.4); Eosinophils % 5.6 % (0.1-12.0); Hematocrit 39.4 % (42.0-52.0); Hemoglobin 12.3 g/dL (14.1-18.0); Lymphocytes # 1.2 K/mm3 (0.7-4.5); Lymphocytes % 27.9 % (10-50); Mean Corpuscular HGB Conc 31.2 g/dL (31.8-35.4); Mean Corpuscular Hemoglobin 32.4 pg (27.0-31.2); Mean Corpuscular Volume 103.7 fl (80-94); Mean Platelet Volume 9.2 fl (7.4-10.4); Monocytes # 0.3 K/mm3 (0.1-1.0); Neutrophils # 2.4 K/mm3 (1.8-7.8); Neutrophils % 58.5 % (37.0-80.0); Platelet Count 119 K/mm3 (142-424); Red Cell Distribution Width 16.7 % (11.5-17.5); White Blood Count 4.2 K/mm3 (4.8-10.8)
--- NOTE | 2022-06-25 14:22 | EXP.PN ---
Subjective *Date: 06/25/22 *Time: 14:22 Interval history: No acute events overnight, mentation continues to improve gradually. Patient is more communicative and able to speak more freely today. He is sitting up in a bedside chair but is unable to stand independently. Exam Data for Last 24 hours Vital signs and Labs for Last 24 Hours: Temp Pulse Resp BP Pulse Ox FiO2 98.0 F 70 18 162/93 H 100 40 06/25/22 11:53 06/25/22 13:29 06/25/22 11:53 06/25/22 11:53 06/25/22 13:29 06/21/22 06:43 Laboratory Results - last 24 hr 06/24/22 15:41: Lactate 1.8 06/24/22 20:30: Vancomycin Trough 26.9 H 06/25/22 01:05: Vancomycin Peak 22.9 06/25/22 08:30: WBC 4.2 L, RBC 3.80 L, Hgb 12.3 L, Hct 39.4 L, MCV 103.7 H, MCH 32.4 H, MCHC 31.2 L, RDW 16.7, Plt Count 119 L, MPV 9.2, Neut % (Auto) 58.5, Lymph % (Auto) 27.9, Navarro % (Auto) 7.0, Eos % (Auto) 5.6, Baso % (Auto) 1.0, Neut # (Auto) 2.4, Lymph # (Auto) 1.2, Navarro # (Auto) 0.3, Eos # (Auto) 0.2, Baso # (Auto) 0.0 06/25/22 08:30: Sodium 151 H*, Potassium 3.3 L, Chloride 112 H, Carbon Dioxide 31 H, Anion Gap 11.3, BUN 21 H, Creatinine 0.70, Estimated Creat Clear 213, Estimated GFR 120, Est GFR ( Amer) 145, Glucose 118 H, Calcium 9.0, Total Bilirubin 3.6 H, AST 75 H D, ALT 43 D, Alkaline Phosphatase 149 H, Total Protein 7.3, Albumin 2.9 L D, Globulin 4.4 H, Albumin/Globulin Ratio 0.7 L 06/25/22 08:30: Ammonia 26 06/25/22 08:30: Total Creatine Kinase 89 I & O for Last 24 hours: Intake & Output 06/22/22 06/23/22 06/24/22 06/25/22 23:59 23:59 23:59 23:59 Intake Total 2196 / 2196 2628 / 2628 3426 / 3426 2140 / 2140 Output Total 1400 / 1550 2400 / 2400 3150 / 3150 3000 / 3000 Balance 796 / 646 228 / 228 276 / 276 -860 / -860 Weight 114.901 kg 117.991 kg 118.025 kg 118.025 kg Microbiology Reports for the Last 24 Hours: Microbiology 06/19/22 16:00 Leg,Left Gram Stain - Final 06/19/22 16:00 Leg,Left Wound Culture - Preliminary Staphylococcus simulans Corynebacterium jeikeium Gram Negative Rods 06/19/22 16:00 Leg,Right Gram Stain - Final 06/19/22 16:00 Leg,Right Wound Culture - Preliminary Gram Negative Rods 06/23/22 10:40 Ankle,Right Gram Stain - Final 06/23/22 10:40 Ankle,Right Wound Culture - Preliminary NO GROWTH AFTER 24 HOURS 06/23/22 10:40 Ankle,Right Gram Stain - Final 06/23/22 10:40 Ankle,Right Wound Culture - Preliminary NO GROWTH AFTER 24 HOURS 06/19/22 08:05 Cerebral Spinal Fluid Gram Stain - Final 06/19/22 08:05 Cerebral Spinal Fluid CSF Culture - Final NO GROWTH AFTER 5 DAYS Constitutional Constitutional: no acute distress, obese, chronically ill appearing and cooperative *Routine HEENT Exam Head: Present normocephalic and atraumatic Eye: Present EOMI and PERRL; Absent periorbital ecchymosis or periorbital swelling ENT: Present mucous membranes dry and other (chronic macroglossia ); Absent dentition normal *Routine Neck Exam Neck: Present supple and full ROM *Routine Respiratory Exam Respiratory: Present rhonchi (diffusely ); Absent accessory muscle use, decreased breath sounds, respiratory distress, crackles or diminished air movement *Routine Cardiovascular Exam Cardiovascular: Present RRR; Absent murmur *Routine Abdominal Exam Abdominal: Present soft and normoactive bowel sounds; Absent tenderness, distended or guarding *Routine Extremities Exam Extremities: Present edema (BLE 1+ to mid shins ), tenderness (rght ankle ) and joint swelling (right ankle ) Comments: changes of chronic venous stasis on bilateral shins. Stasis ulcers present, unchanged. right ankle is red, swollen, warm, but less tender today compared to yesterday in setting of patient with GCS of 9. *Routine Skin Exam Comments: Changes of chronic venous stasis on
--- NOTE | 2022-06-25 17:40 | PC.NURSE ---
[facility] CALLED FOR A UPDATE ON THIS PATIENT , THEY ARE STILL WORKING ON A BED FOR HIM AT THIS TIME. THEY WILL CALL BACK AROUND 9:00 PM
--- NOTE | 2022-06-25 18:00 | PC.NURSE ---
pt has been more alert this shift. He received a shower and has been up to the chair the majority of the shift. one episode of bowel incontinence but otherwise has been able to yell out to voice needs. He has issues with impulse control and gets agitated easily but is ablew to
--- NOTE | 2022-06-25 18:02 | PC.NURSE ---
pt has been more alert today. He received a shower and has been up to the chair the majority of the shift. He has issues with impulse control and managing his emotions. Spoke with [facility] who reports they have a bed
--- NOTE | 2022-06-25 18:11 | EXP.DC.SUM ---
General Admission date:: 06/19/22 Discharge date: 06/25/22 HPI HPI HPI: Mr. Ragland is a 47 year old male patient admitted to the acute inpatient service on 06/19/2022 after presenting to the emergency department with altered mental status and sepsis. Orthopedics consulted in regards to the patient's right foot/ankle cellulitis. History obtained from nursing staff and prior documentation as patient continues to have altered mental status and is unable to respond to verbal questioning. The patient has had ongoing chronic venous stasis ulcers for many years, he was last evaluated by the [facility] in November 2021 and has also previously been under the care of of podiatry and wound care for the same issue. Per nursing staff, the patient's right lower extremity edema has worsened over the past few days during his admission. His past medical history is significant for COPD, lymphedema, tobacco abuse, cellulitis, CHF, hypertension, and cirrhosis. Hospital Course Hospital Course Hospital Course: Patient presented to the ER in the [facility] of 06/19 for altered mental status and methamphetamine intoxication and was admitted here for altered mental status with GCS of approximately 6, severe sepsis, and A. fib with RVR. In the ER patient was intubated for airway protection due to his low GCS and he was extubated on the morning of 06/21 as he was breathing independently while on the vent. Patient was treated with cefepime and vancomycin for severe sepsis. Blood cultures from 06/19 were positive for pansensitive Streptococcus dysgalactiae, additionally wound cultures from his chronic venous stasis ulcers Staph simulans, corynebacterium jeikeium, and another yet to be speciated GPC. 2nd Wound Cx growing GPC. Today he lost IV access briefly (after receiving his cefepime but before he received today's dose of vancomycin). Since a PICC line was not appropriate for a chronic IV drug user who has a history of leaving AMA he was transitioned to cefdinir and doxycycline today as?the S/S on staph simulans shows sensitivity to tetracycline, daptomycin, gentamicin, minocycline, and vancomycin and the strep dysgalactiae is pansensitive. Prior to transfer an IV was replaced to make patient more safe for transfer and IV antibiotics can be resumed if transferring facility wishes. - Regarding afib w/ RVR this improved with a diltiazem drip from 06/22 - 06/24. He is not rate controlled on metoprolol 50 mg PO qd. - Regarding mental status pt was extubated on 06/21 and while he was breathing independently he would not open his eyes, follow commands, only made incomprehensible noises. Pt's mental status remained the same on 06/22 so an MRI Brain was attempted and this required sedation with ativan, benadryl and haldol to obtain images without significant motion artifact. On 06/23 pt'd GCS was 8 and given our lack of in-house neurology [facility] was contacted for transfer for higher level of care. On 06/24 GCS did improve and pt was able to open his eyes and follow some commands, and 06/25 pt was more lucent but still very confused, unaware of what city he was in or what month or year it was. Given CT Head with lacunar infarct and MRI Brain with chronic vascular ischemia, pt will transferred to [facility] to obtain more comprehensive neuro evaluation and treatment. Exam Data for Last 24 hours Vital signs and Labs for Last 24 Hours: Temp Pulse Resp BP Pulse Ox FiO2 98.1 F 68 18 131/74 98 40 06/25/22 15:54 06/25/22 15:54 06/25/22 15:54 06/25/22 15:54 06/25/22 15:54 06/21/22 06:43 Laboratory Results - last 24 hr 06/24/22 20:30: Vancomycin Trough 26.9 H 06/25/22 01:05: Vancomycin Peak 22.9 06/25/22 08:30: WBC 4.2 L, RBC 3.80 L, Hgb 12.3 L, Hct 39.4 L, MCV 103.7 H, MCH 32.4 H, MCHC 31.2 L, RDW 16.7, Plt Count 119 L, MPV 9.2, Neut % (Auto) 58.5, Lymph % (Auto) 27.9, Clinch % (Auto) 7.0, Eos % (Auto) 5.6, Baso % (Auto) 1.0, Neut # (Auto) 2.4, Lymph #
--- NOTE | 2022-06-25 18:57 | PC.NURSE ---
report called to [facility]. Pt will be being transferred to . report called to [facility]. accepting MD Hewitt. FC patent and draining at bedside. @ saline locks in place
--- NOTE | 2022-06-25 20:43 | PC.NURSE ---
Pt transferred off floor via stretcher @ 2034 to [facility].
[2022-07-16 23:00] LABS: MRSA DNA PCR Positive
[2022-07-17 23:47] LABS: Amphetamines IA NEGATIVE; Barbituates IA NEGATIVE; Benzodiazepines IA POSITIVE
[2022-07-17 23:48] LABS: Alprazolam NEGATIVE; Chlordiazepoxide NEGATIVE; Diazepam NEGATIVE; Temazepam NEGATIVE
[2022-07-17 23:49] LABS: 7-Aminoclonazepam NEGATIVE; Clonazepam NEGATIVE; Cocaine & Metabolites IA NEGATIVE; Desalkylflurazepam NEGATIVE; Flurazepam NEGATIVE; Lorazepam 304; Methadone IA NEGATIVE; Midazolam NEGATIVE; Opiates IA NEGATIVE; Oxycodone IA NEGATIVE; Phencyclidine IA NEGATIVE; THC (marijauna) metabolite IA NEGATIVE
[2022-07-17 23:50] LABS: Propoxyphene IA NEGATIVE
== END 2022-06-25 20:35 | disposition short-term general hospital (02) | DRG 64 ==
LOC: ER 04:57 → 2ND 07:32
PROVIDERS: Nurse Anesthetist, Certified Registered; Nurse Practitioner Family; Admitting Provider Internal Medicine Adolescent Medicine; Emergency Provider Student in an Organized Health Care Education/Training Program; Visit Provider Emergency Medicine
DX: A41.9 Sepsis, unspecified organism (principal); J96.21 Acute and chronic respiratory failure with hypoxia; R65.20 Severe sepsis without septic shock; L03.116 Cellulitis of left lower limb; I50.20 Unspecified systolic (congestive) heart failure; L03.115 Cellulitis of right lower limb; E87.0 Hyperosmolality and hypernatremia; I48.20 Chronic atrial fibrillation, unspecified; G93.40 Encephalopathy, unspecified; K74.69 Other cirrhosis of liver; I63.81 Other cerebral infarction due to occlusion or stenosis of small artery; E83.42 Hypomagnesemia; I89.0 Lymphedema, not elsewhere classified; J44.9 Chronic obstructive pulmonary disease, unspecified; I48.91 Unspecified atrial fibrillation; E87.6 Hypokalemia; I87.2 Venous insufficiency (chronic) (peripheral); Z59.00 Homelessness unspecified; F17.210 Nicotine dependence, cigarettes, uncomplicated; I10 Essential (primary) hypertension; F17.290 Nicotine dependence, other tobacco product, uncomplicated; I11.0 Hypertensive heart disease with heart failure; D69.6 Thrombocytopenia, unspecified; T43.651A Poisoning by methamphetamines accidental (unintentional), initial encounter
CPT/HCPCS: 31500; 94002; 62272; 36415; 51702; 70450; 70551; 71045; 73700; 80048; 80053; 80202; 80305; 80307; 80329; 81001; 82140; 82550; 82553; 82803; 83605; 83735; 83880; 84100; 84443; 84484; 85007; 85025; 85610; 85651; 85730; 86900; 86901; 87040; 87070; 87077; 87081; 87086; 87186; 87205; 87641; 89051; 92610; 93005; 93306; 93971; 94003; 94640; 94761; 97163; 97167; 99291; C9803; J2543; J2704; J3370; J3475; P9017; P9034; U0003; U0005

== ENCOUNTER 2022-07-02 00:38 | Emergency (ER) | payer MEDICARE, OTHER, SELFPAY ==
--- NOTE | 2022-07-02 00:34 | ECG_ITS ---
APPROVED REPORT Exam: Resting ECG HR:75 bpm ECG Measurements Heart Rate 75 AXES IL 156 P 53 QRSd 110 QRS 65 QT 391 T 78 QTc 421 Conclusion SINUS RHYTHM POSSIBLE LATERAL MYOCARDIAL INFARCTION , OF INDETERMINATE AGE [30 ms Q WAVE IN I/aVL/V5/V6] ABNORMAL ECG UNCONFIRMED REPORT Electronically signed by : Wilfredo Muñoz MD 07/02/2022 21:12:37
[2022-07-02 00:38] VITALS: BP 118/76; PULSE 77; RESP 18; TEMP 36.6; O2SAT 98; BMI 39.9
--- NOTE | 2022-07-02 00:47 | CT_ITS ---
PROCEDURE INFORMATION: Exam: CT Chest Without Contrast; Diagnostic Exam date and time: 07/02/2022 1:26 AM Age: 47 years old Clinical indication: Injury or trauma; Fall; Blunt trauma (contusions or hematomas); Additional info: Fall left chest pain TECHNIQUE: Imaging protocol: Diagnostic computed tomography of the chest without contrast. Radiation optimization: All CT scans at this facility use at least one of these dose optimization techniques: automated exposure control; mA and/or kV adjustment per patient size (includes targeted exams where dose is matched to clinical indication); or iterative reconstruction. COMPARISON: CR XR CHEST 2V 07/02/2022 1:07 AM FINDINGS: Lungs: Scattered atelectasis versus less likely pneumonia. Pleural spaces: Mild right pleural effusion. Heart: Cardiomegaly. Lymph nodes: Unremarkable. No enlarged lymph nodes. Vasculature: Upper abdomen reveals extensive varices reflecting portal venous hypertension. Liver: Cirrhosis. Tips shunt. Bones/joints: Unremarkable. No acute fracture. Soft tissues: Unremarkable. IMPRESSION: Scattered atelectasis versus less likely pneumonia. Mild right pleural effusion.
--- NOTE | 2022-07-02 00:47 | XR_ITS ---
PROCEDURE INFORMATION: Exam: XR Chest Exam date and time: 07/02/2022 1:07 AM Age: 47 years old Clinical indication: Injury or trauma; Fall; Blunt trauma (contusions or hematomas); Additional info: Fall left chest pain TECHNIQUE: Imaging protocol: Radiologic exam of the chest. Views: 2 views. COMPARISON: CR XR CHEST PORTABLE 06/22/2022 5:39 AM FINDINGS: Lungs: Scattered areas of atelectasis and pneumonia in both lungs most pronounced in the lower lung zones. Pleural spaces: Unremarkable. No pleural effusion. No pneumothorax. Heart/Mediastinum: Cardiomegaly. Bones/joints: Unremarkable. IMPRESSION: Scattered areas of atelectasis and pneumonia in both lungs most pronounced in the lower lung zones.
--- NOTE | 2022-07-02 00:47 | XR_ITS ---
PROCEDURE INFORMATION: Exam: XR Pelvis Exam date and time: 07/02/2022 1:11 AM Age: 47 years old Clinical indication: Injury or trauma; Fall; Blunt trauma (contusions or hematomas); Left; Pelvic region TECHNIQUE: Imaging protocol: Radiologic exam of the pelvis. Views: 1 or 2 view. COMPARISON: CT ABDOMEN PELVIS WO CON 01/28/2022 1:17 PM FINDINGS: Bones/joints: Unremarkable. No acute fracture. Soft tissues: Unremarkable. IMPRESSION: No acute findings.
--- NOTE | 2022-07-02 00:47 | CT_ITS ---
PROCEDURE INFORMATION: Exam: CT Abdomen And Pelvis With Contrast Exam date and time: 07/02/2022 2:12 AM Age: 47 years old Clinical indication: Injury or trauma; Fall; Blunt; Luq; Prior surgery; Surgery type: Shunt TECHNIQUE: Imaging protocol: Computed tomography of the abdomen and pelvis with contrast. Radiation optimization: All CT scans at this facility use at least one of these dose optimization techniques: automated exposure control; mA and/or kV adjustment per patient size (includes targeted exams where dose is matched to clinical indication); or iterative reconstruction. Contrast material: ISOVUE; Contrast volume: 75 ml; Contrast route: IV; COMPARISON: CT ABDOMEN PELVIS WO CON 01/28/2022 1:17 PM FINDINGS: Lungs: In the right lung base there is mild atelectasis. Pleural spaces: Mild right pleural effusion. Liver: Cirrhosis. TIPS shunt. Gallbladder and bile ducts: Normal. No calcified stones. No ductal dilation. Pancreas: Normal. No ductal dilation. Spleen: Splenomegaly 16 cm. Adrenal glands: Normal. No mass. Kidneys and ureters: Normal. No hydronephrosis. Stomach and bowel: Unremarkable. No obstruction. No mucosal thickening. Appendix: No evidence of appendicitis. Intraperitoneal space: Unremarkable. No free air. No significant fluid collection. Vasculature: Portal venous hypertension with multiple varices in the upper abdomen. Portal vein is not opacified. No aortic aneurysm or dissection. Lymph nodes: Scattered subcentimeter bilateral groin lymph nodes. Urinary bladder: Unremarkable as visualized. Reproductive: Unremarkable as visualized. Bones/joints: Unremarkable. No acute fracture. Soft tissues: Soft tissue anasarca. IMPRESSION: 1. No GI tract obstruction or inflammation. 2. Cirrhosis and TIPS shunt. Splenomegaly and portal venous hypertension. 3. No obstructive uropathy. 4. No ascites.
[2022-07-02 01:01] LABS: Basophils % 0.6 % (0.1-2.0); Eosinophils # 0.1 K/mm3 (0.0-0.4); Eosinophils % 3.2 % (0.1-12.0); Hematocrit 35.5 % (42.0-52.0); Hemoglobin 11.2 g/dL (14.1-18.0); Lymphocytes # 1.3 K/mm3 (0.7-4.5); Lymphocytes % 33.1 % (10-50); Mean Corpuscular HGB Conc 31.5 g/dL (31.8-35.4); Mean Corpuscular Hemoglobin 32.3 pg (27.0-31.2); Mean Corpuscular Volume 102.5 fl (80-94); Mean Platelet Volume 8.9 fl (7.4-10.4); Monocytes # 0.4 K/mm3 (0.1-1.0); Neutrophils # 2.2 K/mm3 (1.8-7.8); Neutrophils % 54.1 % (37.0-80.0); Platelet Count 136 K/mm3 (142-424); Red Blood Count 3.46 M/mm3 (4.60-6.20); Red Cell Distribution Width 16.8 % (11.5-17.5); White Blood Count 4.1 K/mm3 (4.8-10.8)
[2022-07-02 01:06] LABS: Chloride 104 mmol/L (98-107)
[2022-07-02 01:07] LABS: Potassium 4.2 mmoL/L (3.5-5.1); Sodium 142 mmol/L (136-145)
--- NOTE | 2022-07-02 01:08 | HMH.EDFALL ---
Discharge Plan Disposition Patient Disposition: Home, Self-Care Chief Complaint: Fall Prescriptions Prescriptions: No Action cefdinir 300 mg Capsule 300 mg PO BID Qty: 10 0RF doxycycline hyclate 100 mg Tablet 100 mg PO BID Qty: 10 0RF enoxaparin 30 mg/0.3 mL Syringe 30 mg SQ BID Qty: 3 0RF lactulose 20 gram/30 mL Solution 30 g PO BID Qty: 1200 0RF furosemide 10 mg/mL Solution 40 mg IV DAILY Qty: 40 0RF levalbuterol HCl 1.25 mg/3 mL Solution For Nebulization 1.25 mg inhalation QIDRT Qty: 72 0RF metoprolol succinate [Toprol XL] 50 mg Tablet Extended Release 24 Hr 50 mg PO DAILY Qty: 30 0RF potassium chloride 20 mEq Tablet,Er Particles/Crystals 20 meq PO BID Qty: 10 0RF Referrals Follow up/Referrals: Provider,Referral, [Primary Care Provider] - See instructions Clinical Impressions Clinical Impression: Fall, Contusion of rib on left side, Cirrhosis Instructions Patient Instructions: How to Prevent Falls Discharge ED Provider: Louie Resendez Fall HPI General Chief Complaint: Fall Stated Complaint: rib pain Time Seen by Provider: 07/02/22 01:08 Mode of Arrival: EMS Source of Information: Patient, EMS and Medical Record Limitations: No Limitations Description of Symptoms (Recalled from ER Triage Doc. by RN): Patient arrived via ems. States that he was sweeping his back porch yesterday when he slipped and fell on his left side. C/O left rib pain and mid-abdomen pain. History of Present Illness HPI Narrative: recent admit at [facility] and [facility] - had slip type injury yesterday with lt sided rib pain complaint: fall Onset (ago): day(s) Fall witnessed: no Place fall occurred: home Loss of consciousness: none Prolonged down time: no Context: tripped/slipped Location of injury: chest Severity: moderate Associated symptoms (after fall): denies Related Data Previous Rx's Medication Instructions Recorded cefdinir 300 mg capsule 300 mg PO BID #10 caps 06/25/22 doxycycline hyclate 100 mg tablet 100 mg PO BID #10 tabs 06/25/22 enoxaparin 30 mg/0.3 mL 30 mg (0.3 mL) SQ BID #3 mL 06/25/22 subcutaneous syringe furosemide 10 mg/mL injection 40 mg (4 mL) IV DAILY #40 mL 06/25/22 solution lactulose 20 gram/30 mL oral 30 g (45 mL) PO BID #1,200 mL 06/25/22 solution levalbuterol HCl 1.25 mg/3 mL 1.25 mg (3 mL) inhalation QIDRT 06/25/22 solution for nebulization #72 mL metoprolol succinate 50 mg 50 mg PO DAILY #30 tabs 06/25/22 tablet,extended release 24 hr (Toprol XL) potassium chloride 20 mEq 20 meq PO BID #10 tabs 06/25/22 tablet,extended release(part/cryst) Allergies Allergy/AdvReac Type Severity Reaction Status Date / Time codeine Allergy Severe Anaphylaxis Verified 05/20/22 13:20 guaifenesin [From Mucinex] Allergy Severe SWELLS Verified 05/20/22 13:20 ketorolac [From Toradol] Allergy Severe Difficulty Verified 05/20/22 13:20 Swallowing sulfamethoxazole AdvReac Intermediate Rash Verified 05/20/22 13:20 [From Bactrim] trimethoprim [From Bactrim] AdvReac Intermediate Rash Verified 05/20/22 13:20 PFSH PFS Medical History Chronic pain Cirrhosis COPD (chronic obstructive pulmonary disease) Hypertension Family History Heart disease Social History Smoking Status: Former smoker second hand exposure: Yes alcohol intake: former substance use type: crack/cocaine and methamphetamine current occupational status: disabled Travel in the last 8 weeks: None household members: friend(s) housing: house current occupation: unknown current occupational exposures/hazards: No caffeine: Yes ROS Obtained: Yes All systems reviewed & no additional complaints except as documented Physical Exam General General appearance: alert Head Head exam: normocephalic Eye Eye exam: Pres
[2022-07-02 01:09] LABS: Alanine Aminotransferase 60 U/L (12-78); Albumin Level 2.8 g/dl (3.5-5.0); Albumin/Globulin Ratio 0.5 (1.1-1.8); Alkaline Phosphatase 268 U/L (38-126); Anion Gap 8.2 mEq/L (5-15); Aspartate Amino Transferase 120 U/L (17-59); Bilirubin,Total 2.6 mg/dl (0.2-1.3); Blood Urea Nitrogen 13 mg/dl (9-20); Carbon Dioxide 34 mmol/L (22.0-30.0); Creatinine Clearance Estimated 258 mL/min (50-200); Estimated Glomerular Filt Rate 143 ml/min (>60); GFR (African American) 173 ML/MIN (>60); Globulin 5.3 g/dL (1.3-3.2); Total Protein,Serum 8.1 g/dl (6.3-8.2)
[2022-07-02 01:10] LABS: Calcium 8.5 mg/dl (8.4-10.2); Glucose 103 mg/dl (74-100)
[2022-07-02 02:30] VITALS: BP 188/100; PULSE 70; O2SAT 98
[2022-07-02 03:13] VITALS: BP 175/88; PULSE 72; RESP 18; TEMP 36.6; O2SAT 99
== END 2022-07-02 03:18 | disposition home or self-care (01) ==
PROVIDERS: Emergency Provider Emergency Medicine
DX: K74.60 Unspecified cirrhosis of liver (principal); S20.212A Contusion of left front wall of thorax, initial encounter; W17.89XA Other fall from one level to another, initial encounter; Y93.H9 Activity, other involving exterior property and land maintenance, building and construction; Z88.1 Allergy status to other antibiotic agents; Z88.6 Allergy status to analgesic agent; Z88.8 Allergy status to other drugs, medicaments and biological substances; J44.9 Chronic obstructive pulmonary disease, unspecified; I10 Essential (primary) hypertension; G89.29 Other chronic pain; Z87.891 Personal history of nicotine dependence
CPT/HCPCS: 71046; 71250; 72170; 74177; 80053; 85025; 93005; 99285; Q9967

== ENCOUNTER 2022-07-02 09:09 | Emergency (ER) | payer MEDICARE, SELFPAY ==
[2022-07-02 09:10] VITALS: BP 149/102; PULSE 76; RESP 20; TEMP 36.7; O2SAT 98; BMI 41.3
--- NOTE | 2022-07-02 09:30 | PC.NURSE ---
DR. RHODES AT BEDSIDE TO EVALUATE PT
[2022-07-02 09:31] VITALS: BP 138/83; PULSE 72; O2SAT 97
--- NOTE | 2022-07-02 09:38 | HMH.EDGENADL ---
Discharge Plan Disposition Patient Disposition: Home, Self-Care Condition: Good Prescriptions Prescriptions: New prednisone 50 mg tablet 50 mg PO DAILY 5 Days Qty: 5 0RF ipratropium-albuterol 0.5 mg-3 mg(2.5 mg base)/3 mL solution for nebulization 3 ml inhalation Q4H PRN (Reason: wheezing) Qty: 90 0RF No Action cefdinir 300 mg Capsule 300 mg PO BID Qty: 10 0RF doxycycline hyclate 100 mg Tablet 100 mg PO BID Qty: 10 0RF enoxaparin 30 mg/0.3 mL Syringe 30 mg SQ BID Qty: 3 0RF lactulose 20 gram/30 mL Solution 30 g PO BID Qty: 1200 0RF furosemide 10 mg/mL Solution 40 mg IV DAILY Qty: 40 0RF levalbuterol HCl 1.25 mg/3 mL Solution For Nebulization 1.25 mg inhalation QIDRT Qty: 72 0RF metoprolol succinate [Toprol XL] 50 mg Tablet Extended Release 24 Hr 50 mg PO DAILY Qty: 30 0RF potassium chloride 20 mEq Tablet,Er Particles/Crystals 20 meq PO BID Qty: 10 0RF Referrals Follow up/Referrals: Carlos Stanton MD [Primary Care Provider] - See instructions Activity Restrictions/Add. Instructions Additional Instructions/Restrictions: At this time was felt you are safe to be discharged home. If new or worsening symptoms please not hesitate to return to the emergency department for continued evaluation. Please take your medication as prescribed. Please brass pickler your breathing machine from medical supply store. Clinical Impressions Clinical Impression: Acute exacerbation of chronic obstructive pulmonary disease, CAP (community acquired pneumonia) Discharge ED Provider: Carmelo Real General Adult HPI General Chief complaint: Fall Stated complaint: SOA, left side pain Time Seen by Provider: 07/02/22 09:38 Mode of Arrival: Ambulatory Limitations: No Limitations Description of Symptoms (Recalled from ER Triage Doc. by RN): PT REPORTS FALL ON Monday, C/O LEFT SIDE RIB PAIN. WAS EVALUATED IN ED EARLIER THIS AM FOR SAME SYMPTOMS History of Present Illness HPI narrative: Patient is a 47-year-old male with past medical history of COPD who presents to the emergency department for evaluation of left thoracic cage pain in the setting of a fall. Patient was recently here today and presents for recent evaluation. Previous chart is reviewed by me, CT chest shows scattered atelectasis versus pneumonia and a mild right-sided pleural effusion. CT abdomen pelvis shows cirrhosis and TIPS shunt, no acute abnormality or ascites. Hematologic labs show stable liver disease. Patient was given cephalosporin and doxycycline and was discharged. Patient has no new complaints. Related Data Previous Rx's Medication Instructions Recorded cefdinir 300 mg capsule 300 mg PO BID #10 caps 06/25/22 doxycycline hyclate 100 mg tablet 100 mg PO BID #10 tabs 06/25/22 enoxaparin 30 mg/0.3 mL 30 mg (0.3 mL) SQ BID #3 mL 06/25/22 subcutaneous syringe furosemide 10 mg/mL injection 40 mg (4 mL) IV DAILY #40 mL 06/25/22 solution lactulose 20 gram/30 mL oral 30 g (45 mL) PO BID #1,200 mL 06/25/22 solution levalbuterol HCl 1.25 mg/3 mL 1.25 mg (3 mL) inhalation QIDRT 06/25/22 solution for nebulization #72 mL metoprolol succinate 50 mg 50 mg PO DAILY #30 tabs 06/25/22 tablet,extended release 24 hr (Toprol XL) potassium chloride 20 mEq 20 meq PO BID #10 tabs 06/25/22 tablet,extended release(part/cryst) ipratropium 0.5 mg-albuterol 3 mg 3 ml inhalation Q4H PRN wheezing 07/02/22 (2.5 mg base)/3 mL nebulization #90 mL soln prednisone 50 mg tablet 50 mg PO DAILY 5 days #5 tabs 07/02/22 Allergies Allergy/AdvReac Type Severity Reaction Status Date / Time codeine Allergy Severe Anaphylaxis Verified 05/20/22 13:20 guaifenesin [From Mucinex] Allergy Severe SWELLS Verified 05/20/22 13:20 ketorolac [From Toradol] Allergy Severe Difficulty Verified 05/20/22 13:20 Swallowing sulfamethoxazole AdvReac Intermediate Rash Verified 05/20/22 13:20 [From Bactrim] trimethoprim [From Bactrim] Adv
--- NOTE | 2022-07-02 10:03 | PC.NURSE ---
PROVIDED PT WITH [facility].
[2022-07-02 10:23] VITALS: BP 111/68; PULSE 69; RESP 16; TEMP 36.6; O2SAT 97
== END 2022-07-02 10:26 | disposition home or self-care (01) ==
PROVIDERS: Emergency Provider Emergency Medicine; PCP Family Medicine
DX: J18.9 Pneumonia, unspecified organism (principal); J44.1 Chronic obstructive pulmonary disease with (acute) exacerbation; Z88.1 Allergy status to other antibiotic agents; Z88.6 Allergy status to analgesic agent; Z88.8 Allergy status to other drugs, medicaments and biological substances; I10 Essential (primary) hypertension; G89.29 Other chronic pain; K74.60 Unspecified cirrhosis of liver

== ENCOUNTER 2022-07-08 12:31 | Inpatient (IN) | payer MEDICARE, OTHER, SELFPAY ==
[2022-07-08] VITALS (8 sets, daily range): BP systolic 115–157; BP diastolic 65–115; PULSE 65–90; RESP 18–24; TEMP 36.7–36.9; O2SAT 92–97; BMI 39.9; BMI 41.3
--- NOTE | 2022-07-08 13:08 | HMH.EDGENADL ---
Discharge Plan Prescriptions Prescriptions: No Action cefdinir 300 mg Capsule 300 mg PO BID Qty: 10 0RF doxycycline hyclate 100 mg Tablet 100 mg PO BID Qty: 10 0RF enoxaparin 30 mg/0.3 mL Syringe 30 mg SQ BID Qty: 3 0RF lactulose 20 gram/30 mL Solution 30 g PO BID Qty: 1200 0RF furosemide 10 mg/mL Solution 40 mg IV DAILY Qty: 40 0RF levalbuterol HCl 1.25 mg/3 mL Solution For Nebulization 1.25 mg inhalation QIDRT Qty: 72 0RF metoprolol succinate [Toprol XL] 50 mg Tablet Extended Release 24 Hr 50 mg PO DAILY Qty: 30 0RF potassium chloride 20 mEq Tablet,Er Particles/Crystals 20 meq PO BID Qty: 10 0RF prednisone 50 mg tablet 50 mg PO DAILY 5 Days Qty: 5 0RF ipratropium-albuterol 0.5 mg-3 mg(2.5 mg base)/3 mL solution for nebulization 3 ml inhalation Q4H PRN (Reason: wheezing) Qty: 90 0RF Referrals Follow up/Referrals: Carlos Stanton MD [Primary Care Provider] - See instructions Discharge ED Provider: Cristopher Woodall General Adult HPI General Stated complaint: abd pain, soa Time Seen by Provider: 07/08/22 13:00 History of Present Illness HPI narrative: Patient presents with a 3-week history of left sided chest and abdominal discomfort. History and physical is limited due to the patient being a vague historian and limited cooperation. Patient describes symptoms as moderate to severe and worse with movement. He states he did fall 3 weeks ago striking the left side of the trunk. Related Data Previous Rx's Medication Instructions Recorded cefdinir 300 mg capsule 300 mg PO BID #10 caps 06/25/22 doxycycline hyclate 100 mg tablet 100 mg PO BID #10 tabs 06/25/22 enoxaparin 30 mg/0.3 mL 30 mg (0.3 mL) SQ BID #3 mL 06/25/22 subcutaneous syringe furosemide 10 mg/mL injection 40 mg (4 mL) IV DAILY #40 mL 06/25/22 solution lactulose 20 gram/30 mL oral 30 g (45 mL) PO BID #1,200 mL 06/25/22 solution levalbuterol HCl 1.25 mg/3 mL 1.25 mg (3 mL) inhalation QIDRT 06/25/22 solution for nebulization #72 mL metoprolol succinate 50 mg 50 mg PO DAILY #30 tabs 06/25/22 tablet,extended release 24 hr (Toprol XL) potassium chloride 20 mEq 20 meq PO BID #10 tabs 06/25/22 tablet,extended release(part/cryst) ipratropium 0.5 mg-albuterol 3 mg 3 ml inhalation Q4H PRN wheezing 07/02/22 (2.5 mg base)/3 mL nebulization #90 mL soln prednisone 50 mg tablet 50 mg PO DAILY 5 days #5 tabs 07/02/22 Allergies Allergy/AdvReac Type Severity Reaction Status Date / Time codeine Allergy Severe Anaphylaxis Verified 05/20/22 13:20 guaifenesin [From Mucinex] Allergy Severe SWELLS Verified 05/20/22 13:20 ketorolac [From Toradol] Allergy Severe Difficulty Verified 05/20/22 13:20 Swallowing sulfamethoxazole AdvReac Intermediate Rash Verified 05/20/22 13:20 [From Bactrim] trimethoprim [From Bactrim] AdvReac Intermediate Rash Verified 05/20/22 13:20 [facility] Medical History Chronic pain Cirrhosis COPD (chronic obstructive pulmonary disease) Hypertension Family History Other Heart disease Social History Smoking Status: Former smoker second hand exposure: Yes alcohol intake: former substance use type: crack/cocaine and methamphetamine current occupational status: disabled Travel in the last 8 weeks: None household members: friend(s) housing: house current occupation: unknown current occupational exposures/hazards: No caffeine: Yes ROS Obtained: Yes All systems reviewed & no additional complaints except as documented Physical Exam General General appearance: alert and in no apparent distress Head Head exam: atraumatic, normocephalic and normal inspection Eye Eye exam: Present normal appearance, PERRL and EOMI ENT ENT exam: Present normal exam, normal oropharynx, mucous membranes moist, TM's normal bi
[2022-07-08 13:16] LABS: Basophils % 0.5 % (0.1-2.0); Eosinophils # 0.3 K/mm3 (0.0-0.4); Eosinophils % 3.9 % (0.1-12.0); Hematocrit 35.6 % (42.0-52.0); Lymphocytes # 1.7 K/mm3 (0.7-4.5); Lymphocytes % 26.1 % (10-50); Mean Corpuscular Hemoglobin 32.3 pg (27.0-31.2); Mean Corpuscular Volume 104.1 fl (80-94); Monocytes # 0.4 K/mm3 (0.1-1.0); Monocytes % 5.6 % (1.7-9.3); Neutrophils # 4.2 K/mm3 (1.8-7.8); Neutrophils % 63.9 % (37.0-80.0); Platelet Count 178 K/mm3 (142-424); Red Blood Count 3.42 M/mm3 (4.60-6.20); Red Cell Distribution Width 17.2 % (11.5-17.5); White Blood Count 6.5 K/mm3 (4.8-10.8)
[2022-07-08 13:23] LABS: Microscopic, Urine URINE MICROSCOPIC (MICROSCOPIC)
[2022-07-08 13:24] LABS: Alanine Aminotransferase 51 U/L (12-78); Albumin Level 3.1 g/dl (3.5-5.0); Albumin/Globulin Ratio 0.5 (1.1-1.8); Alkaline Phosphatase 289 U/L (38-126); Anion Gap 15.5 mEq/L (5-15); Aspartate Amino Transferase 74 U/L (17-59); Bilirubin,Total 3.9 mg/dl (0.2-1.3); Blood Urea Nitrogen 12 mg/dl (9-20); Calcium 8.1 mg/dl (8.4-10.2); Carbon Dioxide 29 mmol/L (22.0-30.0); Chloride 100 mmol/L (98-107); Estimated Glomerular Filt Rate 120 ml/min (>60); GFR (African American) 145 ML/MIN (>60); Globulin 5.7 g/dL (1.3-3.2); Glucose 98 mg/dl (74-100); Lipase 61 U/L (23-300); Potassium 3.5 mmoL/L (3.5-5.1); Sodium 141 mmol/L (136-145); Total Protein,Serum 8.8 g/dl (6.3-8.2)
[2022-07-08 13:25] LABS: Appearance,Urine CLEAR (Clear); Bilirubin,Urine Negative (Negative); Blood, Urine 3+ (Negative); Color,Urine AMBER (Yellow); Glucose,Urine (UA) Negative (Negative); Ketones,Urine Negative (Negative); Leukocyte Esterase,Urine Negative (Negative); Nitrate,Urine Negative (Negative); Protein,Urine TRACE (Negative)
[2022-07-08 13:38] LABS: Troponin I 0.02 ng/ml (0.00-0.034)
--- NOTE | 2022-07-08 13:41 | ECG_ITS ---
APPROVED REPORT Exam: Resting ECG HR:82 bpm ECG Measurements Heart Rate [address] 162 P 59 QRSd 116 QRS 50 QT 400 T 50 QTc 439 Conclusion SINUS RHYTHM Late r wave progression ABNORMAL ECG UNCONFIRMED REPORT Electronically signed by : Wilfredo Muñoz MD 07/08/2022 16:21:07
[2022-07-08 13:43] LABS: RBC,Urine 20-50 #/hpf (0-3); Squamous Epithelial Cell,Urine Occasional #/hpf (0-5)
--- NOTE | 2022-07-08 13:43 | HMH.EDGENADL ---
Discharge Plan Prescriptions Prescriptions: No Action cefdinir 300 mg Capsule 300 mg PO BID Qty: 10 0RF doxycycline hyclate 100 mg Tablet 100 mg PO BID Qty: 10 0RF enoxaparin 30 mg/0.3 mL Syringe 30 mg SQ BID Qty: 3 0RF lactulose 20 gram/30 mL Solution 30 g PO BID Qty: 1200 0RF furosemide 10 mg/mL Solution 40 mg IV DAILY Qty: 40 0RF levalbuterol HCl 1.25 mg/3 mL Solution For Nebulization 1.25 mg inhalation QIDRT Qty: 72 0RF metoprolol succinate [Toprol XL] 50 mg Tablet Extended Release 24 Hr 50 mg PO DAILY Qty: 30 0RF potassium chloride 20 mEq Tablet,Er Particles/Crystals 20 meq PO BID Qty: 10 0RF prednisone 50 mg tablet 50 mg PO DAILY 5 Days Qty: 5 0RF ipratropium-albuterol 0.5 mg-3 mg(2.5 mg base)/3 mL solution for nebulization 3 ml inhalation Q4H PRN (Reason: wheezing) Qty: 90 0RF Referrals Follow up/Referrals: Carlos Stanton MD [Primary Care Provider] - See instructions Discharge ED Provider: Cristopher Woodall General Adult HPI General Stated complaint: abd pain, soa Time Seen by Provider: 07/08/22 13:00 History of Present Illness HPI narrative: Patient presents with a 3-week history of left-sided truncal discomfort he describes the pain as moderate to severe he states he did fall approximate 3 weeks ago landing on the side he denies fever. He describes the pain as severe and worse with movement. Related Data Previous Rx's Medication Instructions Recorded cefdinir 300 mg capsule 300 mg PO BID #10 caps 06/25/22 doxycycline hyclate 100 mg tablet 100 mg PO BID #10 tabs 06/25/22 enoxaparin 30 mg/0.3 mL 30 mg (0.3 mL) SQ BID #3 mL 06/25/22 subcutaneous syringe furosemide 10 mg/mL injection 40 mg (4 mL) IV DAILY #40 mL 06/25/22 solution lactulose 20 gram/30 mL oral 30 g (45 mL) PO BID #1,200 mL 06/25/22 solution levalbuterol HCl 1.25 mg/3 mL 1.25 mg (3 mL) inhalation QIDRT 06/25/22 solution for nebulization #72 mL metoprolol succinate 50 mg 50 mg PO DAILY #30 tabs 06/25/22 tablet,extended release 24 hr (Toprol XL) potassium chloride 20 mEq 20 meq PO BID #10 tabs 06/25/22 tablet,extended release(part/cryst) ipratropium 0.5 mg-albuterol 3 mg 3 ml inhalation Q4H PRN wheezing 07/02/22 (2.5 mg base)/3 mL nebulization #90 mL soln prednisone 50 mg tablet 50 mg PO DAILY 5 days #5 tabs 07/02/22 Allergies Allergy/AdvReac Type Severity Reaction Status Date / Time codeine Allergy Severe Anaphylaxis Verified 05/20/22 13:20 guaifenesin [From Mucinex] Allergy Severe SWELLS Verified 05/20/22 13:20 ketorolac [From Toradol] Allergy Severe Difficulty Verified 05/20/22 13:20 Swallowing sulfamethoxazole AdvReac Intermediate Rash Verified 05/20/22 13:20 [From Bactrim] trimethoprim [From Bactrim] AdvReac Intermediate Rash Verified 05/20/22 13:20 [facility] Medical History Chronic pain Cirrhosis COPD (chronic obstructive pulmonary disease) Hypertension Family History Other Heart disease Social History Smoking Status: Former smoker second hand exposure: Yes alcohol intake: former substance use type: crack/cocaine and methamphetamine current occupational status: disabled Travel in the last 8 weeks: None household members: friend(s) housing: house current occupation: unknown current occupational exposures/hazards: No caffeine: Yes ROS Obtained: Yes All systems reviewed & no additional complaints except as documented Physical Exam General General appearance: alert and in no apparent distress Head Head exam: atraumatic Eye Eye exam: Present normal appearance, PERRL and EOMI ENT ENT exam: Present normal exam, normal oropharynx, mucous membranes moist, TM's normal bilaterally and normal external ear exam Neck Neck exam: Present normal inspection, full ROM and trachea midline;
[2022-07-08 13:44] LABS: Bacteria,Urine Trace /lpf; Mucus,Urine Trace /lpf
--- NOTE | 2022-07-08 14:03 | CT_ITS ---
FINAL REPORT CLINICAL HISTORY: L flank pain, blood in urine FINDINGS: Axial CT images of the abdomen and pelvis were obtained without intravenous contrast. Coronal reformatted images were also obtained.This study was performed with techniques to keep radiation doses as low as reasonably achievable (ALARA). Individualized dose reduction techniques using automated exposure control or adjustment of mA and/or kV according to the patient''s size were employed. Abdomen: There is mild atelectasis or scarring in the lung bases. The liver is small and irregular consistent with cirrhosis. A TIPS shunt is present. There is a 2nd shunt extending through the anterior aspect of the liver. There is splenomegaly measuring up to 14 cm. Again noted are presumed venous collaterals in the left upper quadrant. There is severe anasarca. The pancreas and adrenal glands are unremarkable. There is no renal stone or hydronephrosis. There are multiple mildly enlarged retroperitoneal nodes which are nonspecific but may be reactive. Pelvis: The appendix is normal. There is no evidence of ureteral stone. There is mild bladder wall thickening which is likely inflammatory. IMPRESSION: Cirrhosis. Splenomegaly. Anasarca. Mildly enlarged retroperitoneal nodes, nonspecific, may be reactive. Mild bladder wall thickening which is likely inflammatory. Reviewed, Interpreted and Dictated by Claudio Kuhn III, MD Transcribed by Meli Cordero Authenticated and . [facility]
--- NOTE | 2022-07-08 14:18 | PC.NURSE ---
Notified rad of CT scan and updated pt
--- NOTE | 2022-07-08 14:22 | PC.NURSE ---
Pt going to CT
--- NOTE | 2022-07-08 14:29 | PC.NURSE ---
pt returned from CT
--- NOTE | 2022-07-08 15:35 | XR_ITS ---
FINAL REPORT CLINICAL HISTORY: Precordial chest pain COMPARISON: 07/02/2022 FINDINGS: A single view of the chest was obtained. The heart is enlarged. There is worsening pulmonary vascular congestion. There are worsening bibasilar opacities which may represent atelectasis or pneumonia. There is no pneumothorax. There is no acute osseous abnormality. IMPRESSION: Worsening pulmonary vascular congestion and worsening bibasilar opacities which may represent atelectasis or pneumonia. Reviewed, Interpreted and Dictated by Claudio Kuhn III, MD Transcribed by Meli Cordero Authenticated and [facility]
--- NOTE | 2022-07-08 17:08 | PC.NURSE ---
dr. traylor (hospitalist) and ER discussing POC with pt.
--- NOTE | 2022-07-08 17:09 | XR_ITS ---
PROCEDURE INFORMATION: Exam: XR Left Tibia and Fibula Exam date and time: 07/08/2022 5:39 PM Age: 47 years old Clinical indication: Swelling, leg or foot; Additional info: Redness TECHNIQUE: Imaging protocol: Radiologic exam of the Left tibia and fibula. Views: 2 views. COMPARISON: CR XR TIBIA FIBULA LT 2V 05/19/2022 4:20 PM FINDINGS: Bones/joints: No visible fracture or dislocation. No osseous destructive lesions. Soft tissues: Circumferential soft tissue swelling about the leg. There is an ulceration along the anterior aspect of the distal leg. IMPRESSION: 1. Circumferential soft tissue swelling about the leg. 2. No visible fracture or dislocation.
--- NOTE | 2022-07-08 17:09 | XR_ITS ---
PROCEDURE INFORMATION: Exam: XR Right Tibia and Fibula Exam date and time: 07/08/2022 5:39 PM Age: 47 years old Clinical indication: Swelling, leg or foot; Additional info: Redness TECHNIQUE: Imaging protocol: Radiologic exam of the Right tibia and fibula. Views: 2 views. COMPARISON: CT ANGIO LE BI 11/17/2021 11:19 AM FINDINGS: Bones/joints: No visible fracture or dislocation. Soft tissues: Diffuse soft tissue swelling about the leg. Other findings: No radiopaque foreign body IMPRESSION: 1. No visible fracture or dislocation. 2. Diffuse soft tissue swelling about the leg.
--- NOTE | 2022-07-08 17:32 | PC.NURSE ---
rad at BS for portable xray
[2022-07-08 17:52] LABS: Coronavirus 19, PCR Not Detected (NotDetected); Influenza A, PCR Not Detected (NotDetected); Influenza B, PCR Not Detected (NotDetected)
--- NOTE | 2022-07-08 18:19 | PC.NURSE ---
per ER MD waiting on official readings of xrays before deciding of admission and POC, updated pt
--- NOTE | 2022-07-08 19:13 | PC.NURSE ---
report called to diomedes rosales on second floor at this time.
--- NOTE | 2022-07-08 19:37 | PC.NURSE ---
hospitalist here to see pt
--- NOTE | 2022-07-08 19:51 | CT_ITS ---
PROCEDURE INFORMATION: Exam: CTA Chest With Contrast Exam date and time: 07/08/2022 8:26 PM Age: 47 years old Clinical indication: Abnormal findings; Other: Elevated d-dimer; Additional info: Elevated dimer TECHNIQUE: Imaging protocol: Computed tomographic angiography of the chest with contrast. 3D rendering (Not supervised by radiologist): MIP and/or 3D reconstructed images were created by the technologist. Radiation optimization: All CT scans at this facility use at least one of these dose optimization techniques: automated exposure control; mA and/or kV adjustment per patient size (includes targeted exams where dose is matched to clinical indication); or iterative reconstruction. Contrast material: ISOVUE 370; Contrast volume: 70 ml; Contrast route: INTRAVENOUS (IV); COMPARISON: CT CHEST WO CON 07/02/2022 1:26 AM FINDINGS: Pulmonary arteries: Bolus timing is insufficient for definitive exclusion of small peripheral pulmonary emboli. Pulmonary artery is normal in caliber. No evidence of filling defects to suggest pulmonary emboli. The RV: LV ratio is less than 1. Aorta: Unremarkable. No aortic aneurysm. No aortic dissection. Lungs: Scattered regions of mosaic attenuation which can be seen in the context of air entrapment. No pneumonia. Smooth interlobular septal thickening with upper lobe gradient on a ground-glass opacity background Pleural spaces: Unremarkable. No pneumothorax. No pleural effusion. Heart: There is mild atherosclerotic calcification of the coronary arteries. The left atrial appendage is normal. Lymph nodes: Calcified pretracheal nodes. Liver: Cirrhosis. There are 2 stent grafts in the liver, 1 of which is a tips Bones/joints: Unremarkable. No acute fracture. Soft tissues: Unremarkable. IMPRESSION: 1. Suboptimal contrast bolus tracking. Within these limits no pulmonary embolus 2. Findings can be attributed to interstitial edema in the appropriate clinical context .
--- NOTE | 2022-07-08 20:33 | EXP.HP ---
History of Present Illness *Admission Date: 07/08/22 *Reason for visit:: BLE Edema *History of present illness: This is a 47-year-old male with past medical history of COPD, atrial fibrillation, recent left-sided lacunar infarct, HFrEF, substance abuse namely methamphetamines, noncompliance, tobacco abuse, cirrhosis who presents emergency department today with complaints of bilateral lower extremity pain with increased erythema and edema. Patient was recently admitted here on 06/19/2022 for altered mental status requiring intubation for airway maintenance. At that time he underwent septic work-up and was noted to have Streptococcus dysgalactiae bacteremia and bilateral lower extremity wound cultures positive for staph and E. coli. He was treated with broad-spectrum antibiotics during that admission. He was extubated shortly after and was noted to have prolonged encephalopathy. CT scan at that time revealed lacunar infarct and patient was transferred to [place] for further neurological evaluation. Patient is known noncompliant medical patient with continued substance abuse. He does have a history of leaving AMA from the hospital. Unclear as to if patient has been on oral antibiotics since discharge from [place]. Emergency department work-up significant for bilateral lower extremity edema with chronic venous stasis disease and open ulcerations of bilateral extremities. X-ray imaging does not reveal any osteo involvement. Laboratory evaluation significant for chronic transaminitis, stable macrocytic anemia, elevated anion gap of 15 and elevated D-dimer of 2.30. Chest x-ray notable for pulmonary vascular congestion and likely pneumonia. He was treated emergency department broadly with vancomycin, cefepime and Flagyl. Due to the above-mentioned complaints he will be admitted to the hospitalist service for further evaluation and management. On my exam today he does have severe lipsmacking, tangential thinking and inattention. It does appear that patient has been engaging in further substance abuse. Notable wheezing on exam with room oxygen saturations in the mid 90s. Bilateral lower extremity wraps in place. Given elevated D-dimer, continued drug abuse, will get CT chest PE scan to rule out emboli. [facility] Medical History Chronic pain Cirrhosis COPD (chronic obstructive pulmonary disease) Hypertension Family History Other Heart disease Social History (Reviewed 07/08/22 @ 20:47 by REVA Watson Smoking Status: Former smoker second hand exposure: Yes alcohol intake: former substance use type: crack/cocaine and methamphetamine current occupational status: disabled Travel in the last 8 weeks: None household members: friend(s) housing: house current occupation: unknown current occupational exposures/hazards: No caffeine: Yes Review of Systems Constitutional Constitutional: Reports system reviewed and no additional complaints, except as documented Eyes Eyes: Reports system reviewed and no additional complaints, except as documented ENT Ears, Nose, Mouth, and Throat: Reports system reviewed and no additional complaints, except as documented *Cardiovascular Cardiovascular: Reports system reviewed and no additional complaints, except as documented *Respiratory Respiratory: Reports system reviewed and no additional complaints, except as documented *Gastrointestinal Gastrointestinal: Reports system reviewed and no additional complaints, except as documented *Genitourinary Genitourinary: Reports system reviewed and no additional complaints, except as documented *Musculoskeletal Musculoskeletal: Reports system reviewed and no additional complaints, except as documented Integumentary/Breasts Skin/Breast: Reports system reviewed and no additional complaints, except as documented *Neurologic Neurologic:
--- NOTE | 2022-07-08 20:34 | PC.NURSE ---
patient up to floor via wheelchair @ this time.
[2022-07-08 20:47] LABS: NT Pro Brain Natriuretic Pep. 1630 pg/mL (0-125)
[2022-07-08 20:53] LABS: Erythrocyte Sedimentation Rate 76 mm/hr (0-15)
--- NOTE | 2022-07-08 21:01 | PC.NURSE ---
verified vanc dose with [facility]. 2 gm in 500 ml ns
[2022-07-08 21:08] LABS: Barbiturates Screen,Urine Negative ng/ml (<200)
[2022-07-08 21:09] LABS: Benzodiazepines Screen,Urine Negative ng/ml (<200)
[2022-07-08 21:10] LABS: Amphetamine/Metha Screen,Urine Positive ng/ml (<1000); Cannabinoid Screen,Urine Negative ng/ml (<50)
[2022-07-08 21:11] LABS: Cocaine Screen,Urine Negative ng/ml (<300); Methadone Screen,Urine Negative ng/ml (<300)
[2022-07-08 21:12] LABS: Opiate Screen,Urine Positive ng/ml (<300)
[2022-07-08 21:13] LABS: Phencyclidine Screen,Urine Negative ng/ml (<25)
--- NOTE | 2022-07-08 21:33 | PC.NURSE ---
mixed and verified vanc with Jeremie Dial RN
--- NOTE | 2022-07-08 22:23 | PC.NURSE ---
home meds locked in spindle maker room
--- NOTE | 2022-07-08 22:43 | PC.NURSE ---
pt appears very anxious at this time. thrashing around in bed. KEARA Prescott notified
[2022-07-09] VITALS (9 sets, daily range): BP systolic 120–164; BP diastolic 64–95; PULSE 60–83; RESP 18–20; TEMP 36.3–36.8; O2SAT 91–98; BMI 41.1
--- NOTE | 2022-07-09 01:30 | PC.NURSE ---
pt removed tele and refused to allow staff to put back on. pt yelling, very anxious, and uncooperative. attempted to give ativan again at this time and pt refused
--- NOTE | 2022-07-09 03:54 | PC.NURSE ---
spoke with dr kirkpatrick. new orders received to place pt on venti mask, and reschedule prn pain medication
--- NOTE | 2022-07-09 06:30 | PC.WOUNDNOTE ---
lower left leg lower left leg lower left leg lower left leg lower right leg lower right leg ble right foot left foot bruising noted to chest bruising
[2022-07-09 07:07] LABS: Basophils % 0.3 % (0.1-2.0); Eosinophils % 0.3 % (0.1-12.0); Hematocrit 30.6 % (42.0-52.0); Lymphocytes # 0.6 K/mm3 (0.7-4.5); Lymphocytes % 32.5 % (10-50); Mean Corpuscular HGB Conc 31.6 g/dL (31.8-35.4); Mean Corpuscular Hemoglobin 32.6 pg (27.0-31.2); Mean Platelet Volume 8.7 fl (7.4-10.4); Monocytes # 0.1 K/mm3 (0.1-1.0); Monocytes % 5.1 % (1.7-9.3); Neutrophils # 1.1 K/mm3 (1.8-7.8); Neutrophils % 61.8 % (37.0-80.0); Platelet Count 104 K/mm3 (142-424); Red Blood Count 2.97 M/mm3 (4.60-6.20); Red Cell Distribution Width 17.2 % (11.5-17.5); White Blood Count 1.7 K/mm3 (4.8-10.8)
[2022-07-09 07:15] LABS: Ammonia 62 umol/L (9-30); Anion Gap 12.4 mEq/L (5-15); Blood Urea Nitrogen 13 mg/dl (9-20); Calcium 7.5 mg/dl (8.4-10.2); Carbon Dioxide 30 mmol/L (22.0-30.0); Chloride 99 mmol/L (98-107); Creatinine Clearance Estimated 173 mL/min (50-200); Estimated Glomerular Filt Rate 177 ml/min (>60); GFR (African American) 214 ML/MIN (>60); Glucose 160 mg/dl (74-100); Magnesium 1.3 mg/dl (1.6-2.3); Potassium 3.4 mmoL/L (3.5-5.1); Sodium 138 mmol/L (136-145)
--- NOTE | 2022-07-09 08:13 | EXP.PHA.CONS ---
Pharmacy Consult Date: 07/09/22 Time: 08:13 Referring provider: DR. Shelbi OLIVAREZ Reason for Consult:: VANCOMYCIN DOSING Allergies Allergy/AdvReac Type Severity Reaction Status Date / Time codeine Allergy Severe Anaphylaxis Verified 05/20/22 13:20 guaifenesin [From Mucinex] Allergy Severe SWELLS Verified 05/20/22 13:20 ketorolac [From Toradol] Allergy Severe Difficulty Verified 05/20/22 13:20 Swallowing sulfamethoxazole AdvReac Intermediate Rash Verified 05/20/22 13:20 [From Bactrim] trimethoprim [From Bactrim] AdvReac Intermediate Rash Verified 05/20/22 13:20 Home Medications Medication Instructions Recorded Confirmed Type cefdinir 300 mg capsule 300 mg PO BID #10 caps 06/25/22 Rx doxycycline hyclate 100 mg tablet 100 mg PO BID #10 tabs 06/25/22 Rx enoxaparin 30 mg/0.3 mL 30 mg (0.3 mL) SQ BID #3 mL 06/25/22 Rx subcutaneous syringe furosemide 10 mg/mL injection 40 mg (4 mL) IV DAILY #40 mL 06/25/22 Rx solution lactulose 20 gram/30 mL oral 30 g (45 mL) PO BID #1,200 mL 06/25/22 Rx solution levalbuterol HCl 1.25 mg/3 mL 1.25 mg (3 mL) inhalation QIDRT 06/25/22 Rx solution for nebulization #72 mL metoprolol succinate 50 mg 50 mg PO DAILY #30 tabs 06/25/22 Rx tablet,extended release 24 hr (Toprol XL) potassium chloride 20 mEq 20 meq PO BID #10 tabs 06/25/22 Rx tablet,extended release(part/cryst) ipratropium 0.5 mg-albuterol 3 mg 3 ml inhalation Q4H PRN wheezing 07/02/22 Rx (2.5 mg base)/3 mL nebulization #90 mL soln prednisone 50 mg tablet 50 mg PO DAILY 5 days #5 tabs 07/02/22 Rx New Prescriptions to Start Prescriptions: Height: 1.75 m Weight: 125.827 kg Laboratory Results:: Laboratory Results - last 24 hr 07/08/22 13:07: WBC 6.5, RBC 3.42 L, Hgb 11.0 L, Hct 35.6 L, MCV 104.1 H, MCH 32.3 H, MCHC 31.0 L, RDW 17.2, Plt Count 178, MPV 8.0, Neut % (Auto) 63.9, Lymph % (Auto) 26.1, [place] % (Auto) 5.6, Eos % (Auto) 3.9, Baso % (Auto) 0.5, Neut # (Auto) 4.2, Lymph # (Auto) 1.7, [place] # (Auto) 0.4, Eos # (Auto) 0.3, Baso # (Auto) 0.0 07/08/22 13:07: Sodium 141, Potassium 3.5, Chloride 100, Carbon Dioxide 29, Anion Gap 15.5 H, BUN 12, Creatinine 0.70, Estimated GFR 120, Est GFR ( Amer) 145, Glucose 98, Calcium 8.1 L, Total Bilirubin 3.9 H, AST 74 H, ALT 51, Alkaline Phosphatase 289 H, Troponin I 0.02, Total Protein 8.8 H, Albumin 3.1 L, Globulin 5.7 H, Albumin/Globulin Ratio 0.5 L, Lipase 61 07/08/22 13:07: D-Dimer 2.30 H 07/08/22 13:07: NT-Pro-B Natriuret Pep 1630 H 07/08/22 13:07: ESR 76 H 07/08/22 13:17: Urine Color Mihaela, Urine Appearance Clear, Urine pH 6.0, Ur Specific [place] 1.020, Urine Protein Trace, Urine Glucose (UA) Negative, Urine Ketones Negative, Urine Blood 3+, Urine Nitrate Negative, Urine Bilirubin Negative, Urine Urobilinogen 1.0, Ur Leukocyte Esterase Negative, Urine RBC 20-50, Urine WBC 3-5, Ur Squamous Epith Cells Occasional, Urine Bacteria Trace, Urine Mucus Trace 07/08/22 13:17: Urine Opiates Screen Positive H, Urine Methadone Screen Negative, Ur Barbituates Screen Negative, Ur Phencyclidine Scrn Negative, Ur Amphetamines Screen Positive H, U Benzodiazepines Scrn Negative, Urine Cocaine Screen Negative, U Marijuana (THC) Screen Negative 07/08/22 17:48: SARS-CoV-2 (PCR) Not detected, Influenza A Untype (PCR) Not detected, Influenza Type B (PCR) Not detected 07/09/22 06:48: Sodium 138, Potassium 3.4 L, Chloride 99, Carbon Dioxide 30, Anion Gap 12.4, BUN 13, Creatinine 0.50 L D, Estimated Creat Clear 173, Estimated GFR 177, Est GFR ( Amer) 214 D, Glucose 160 H D, Calcium 7.5 L, Magnesium 1.3 L 07/09/22 06:48: Ammonia 62 H Medical History: Medical History (Updated 07/08/22 @ 17:51 by Cristopher Woodall MD) Chronic pain Cirrhosis COPD (chronic obstructive pulmonary disease) Hypertension Assessment and Plan Assessment and plan all Dx Assessment and Plan for all problems:: Pharmacokinetic dosing service Objective:
[2022-07-09 08:21] LABS: Hemoglobin 9.7 g/dL (14.1-18.0)
--- NOTE | 2022-07-09 09:15 | HMH.PHAINT1 ---
Pharmacy Intervention Comments: MEDICATION RECONCILIATION COMPLETED ON PATIENT USING EXTERNAL FILL HISTORY FROM PHARMACY. -SILVA BOWLES, EDILIAD
--- NOTE | 2022-07-09 12:20 | EXP.ACUTE.PN ---
Subjective *Date: 07/09/22 *Time: 12:20 Interval history: No concerns or complaints from overnight. Patient will go to the OR for wound debridement tomorrow morning. Medical Exam Vital signs and Labs for Last 24 Hours: Vital Signs Temp Pulse Pulse Resp BP BP Pulse Ox 07/09/22 08:00 97.4 F L 72 18 164/91 H 95 07/09/22 06:11 60 07/09/22 06:11 60 07/09/22 06:11 91 L 07/09/22 04:00 98.2 F 68 18 155/95 H 93 L 07/09/22 04:00 60 07/09/22 00:00 60 07/09/22 00:00 60 07/09/22 00:00 97.8 F 62 18 150/92 H 97 07/08/22 20:45 98.0 F 81 18 157/87 H 92 L 07/08/22 20:32 98.4 F 67 18 134/78 07/08/22 19:01 65 18 123/72 96 07/08/22 18:31 69 18 140/81 97 07/08/22 18:20 65 18 137/68 94 L 07/08/22 16:30 70 18 115/65 93 L 07/08/22 16:10 78 127/69 97 07/08/22 12:45 98.4 F 90 24 155/115 H 92 L Intake and Output 07/08/22 07/09/22 07/09/22 23:59 07:59 15:59 Intake Total 1200 / 1200 Output Total 750 / 750 250 / 250 0 / 250 Balance -750 / -750 -250 / 950 1200 / 950 Intake: Intake, Oral Amount 1200 / 1200 Output: Output, Urine Amount 750 / 750 250 / 250 0 / 250 Other: Number of Unmeasured Voids 1 Weight 126.462 kg 125.827 kg 125.827 kg Patient Weight 07/09/22 23:59 Weight 125.827 kg Laboratory Results - last 24 hr 07/08/22 13:07: WBC 6.5, RBC 3.42 L, Hgb 11.0 L, Hct 35.6 L, MCV 104.1 H, MCH 32.3 H, MCHC 31.0 L, RDW 17.2, Plt Count 178, MPV 8.0, Neut % (Auto) 63.9, Lymph % (Auto) 26.1, [place] % (Auto) 5.6, Eos % (Auto) 3.9, Baso % (Auto) 0.5, Neut # (Auto) 4.2, Lymph # (Auto) 1.7, [place] # (Auto) 0.4, Eos # (Auto) 0.3, Baso # (Auto) 0.0 07/08/22 13:07: Sodium 141, Potassium 3.5, Chloride 100, Carbon Dioxide 29, Anion Gap 15.5 H, BUN 12, Creatinine 0.70, Estimated GFR 120, Est GFR ( Amer) 145, Glucose 98, Calcium 8.1 L, Total Bilirubin 3.9 H, AST 74 H, ALT 51, Alkaline Phosphatase 289 H, Troponin I 0.02, Total Protein 8.8 H, Albumin 3.1 L, Globulin 5.7 H, Albumin/Globulin Ratio 0.5 L, Lipase 61 07/08/22 13:07: D-Dimer 2.30 H 07/08/22 13:07: NT-Pro-B Natriuret Pep 1630 H 07/08/22 13:07: ESR 76 H 07/08/22 13:17: Urine Color Mihaela, Urine Appearance Clear, Urine pH 6.0, Ur Specific [place] 1.020, Urine Protein Trace, Urine Glucose (UA) Negative, Urine Ketones Negative, Urine Blood 3+, Urine Nitrate Negative, Urine Bilirubin Negative, Urine Urobilinogen 1.0, Ur Leukocyte Esterase Negative, Urine RBC 20-50, Urine WBC 3-5, Ur Squamous Epith Cells Occasional, Urine Bacteria Trace, Urine Mucus Trace 07/08/22 13:17: Urine Opiates Screen Positive H, Urine Methadone Screen Negative, Ur Barbituates Screen Negative, Ur Phencyclidine Scrn Negative, Ur Amphetamines Screen Positive H, U Benzodiazepines Scrn Negative, Urine Cocaine Screen Negative, U Marijuana (THC) Screen Negative 07/08/22 17:48: SARS-CoV-2 (PCR) Not detected, Influenza A Untype (PCR) Not detected, Influenza Type B (PCR) Not detected 07/09/22 06:48: WBC 1.7 L* D, RBC 2.97 L, Hgb 9.7 L D, Hct 30.6 L, MCV 103.0 H, MCH 32.6 H, MCHC 31.6 L, RDW 17.2, Plt Count 104 L D, MPV 8.7, Neut % (Auto) 61.8, Lymph % (Auto) 32.5, [place] % (Auto) 5.1, Eos % (Auto) 0.3, Baso % (Auto) 0.3, Neut # (Auto) 1.1 L, Lymph # (Auto) 0.6 L, [place] # (Auto) 0.1, Eos # (Auto) 0.0, Baso # (Auto) 0.0 07/09/22 06:48: Sodium 138, Potassium 3.4 L, Chloride 99, Carbon Dioxide 30, Anion Gap 12.4, BUN 13, Creatinine 0.50 L D, Estimated Creat Clear 173, Estimated GFR 177, Est GFR ( Amer) 214 D, Glucose 160 H D, Calcium 7.5 L, Magnesium 1.3 L 07/09/22 06:48: Ammonia 62 H I & O for Labs for Last 24 Hours: Intake & Output 07/06/22 07/07/22 07/08/22 07/09/22 23:59 23:59 23:59 23:59 Intake Total 1200 / 1200 Output Total 750 / 750 250 / 250 Balance -750 / -750 950 / 950 Weight 126.462 kg 125.827 kg Microbiology Reports for the Last 24 Hours: Microbiology 07/08/22 22:5
--- NOTE | 2022-07-09 15:00 | PC.NURSE ---
notified MD of pt reported pain
--- NOTE | 2022-07-09 19:24 | PC.NURSE ---
pt is not cooperative. I educated on compliance and that he will be npo after Midnight in preperation for possible surgical intervention tomorrow. Refused am lovenox injection.
--- NOTE | 2022-07-09 20:31 | PC.NURSE ---
Pt refusing Lovenox injection at this time despite education/encouragement. Pt also refusing Seroquel, stating it makes my stomach cramp something awful.
--- NOTE | 2022-07-09 20:39 | PC.NURSE ---
Pt refusing to do CRE swab being uncooperative and argumentative at this time. Will try again later.
[2022-07-10] VITALS (23 sets, daily range): BP systolic 138–158; BP diastolic 73–94; PULSE 61–88; RESP 10–20; TEMP 36.4–37.1; O2SAT 94–100; BMI 41.8
--- NOTE | 2022-07-10 01:32 | PC.NURSE ---
Upon entering pt room, large puddle noted to be on floor. IV had been unhooked and Vancomycin was currently running into the floor. Pt stated he had gotten up to go to the bathroom. IV pump showed that 102 ml were still in the bag. Pt was hooked back up and the rest of the bag was given. Floor cleaned up. Nightwatch consulted. Elsi stated it was ok to mix another 2000mg Vanc in a 250 ml bag NS and give 148ml of it. 2000mg vanc pulled from omini and mixed into 250ml NS, verified by Bird, RN. Bag hung and IV pump set to infuse 148ml. Pt education given.
--- NOTE | 2022-07-10 02:25 | PC.NURSE ---
When checking on pt, pt states his IV site was sore. IV Vanc stopped. Upon assessment, some swelling noted around site. IV removed and restarted vanc in other IV. Cold compress applied. Nightwatch consulted. Elsi states to take no action. She will leave note in for our pharmacy.
--- NOTE | 2022-07-10 06:04 | PC.NURSE ---
Addendum entered by Amanda Jha RN 07/10/22 06:09: Pt is refusing [place] stating it does not help at all and pt continues to refuse the CRE swab. Pt has been NPO since midnight. Original Note: Pt has c/o pain in BLE and left upper abdomen multiple times t/o shift. Pt states [place] 7.5 does not provide any relief of pain and Morphine brings pain level down from but only for 30 mins. Pt has slept well t/o shift. BM sounds active and abdomen soft. Able to walk to BR with standby assist. Call light within reach.
[2022-07-10 07:23] LABS: Basophils % 0.1 % (0.1-2.0); Eosinophils % 0.7 % (0.1-12.0); Hematocrit 31.9 % (42.0-52.0); Hemoglobin 9.3 g/dL (14.1-18.0); Lymphocytes # 1.5 K/mm3 (0.7-4.5); Lymphocytes % 24.8 % (10-50); Mean Corpuscular HGB Conc 29.1 g/dL (31.8-35.4); Mean Corpuscular Hemoglobin 31.1 pg (27.0-31.2); Mean Platelet Volume 8.1 fl (7.4-10.4); Monocytes # 0.4 K/mm3 (0.1-1.0); Monocytes % 6.5 % (1.7-9.3); Neutrophils # 4.1 K/mm3 (1.8-7.8); Neutrophils % 67.8 % (37.0-80.0); Platelet Count 121 K/mm3 (142-424); Red Blood Count 2.98 M/mm3 (4.60-6.20)
[2022-07-10 07:30] LABS: Anion Gap 11.9 mEq/L (5-15); Blood Urea Nitrogen 19 mg/dl (9-20); Calcium 7.6 mg/dl (8.4-10.2); Carbon Dioxide 32 mmol/L (22.0-30.0); Chloride 102 mmol/L (98-107); Creatinine Clearance Estimated 144 mL/min (50-200); Estimated Glomerular Filt Rate 143 ml/min (>60); GFR (African American) 173 ML/MIN (>60); Glucose 115 mg/dl (74-100); Magnesium 1.5 mg/dl (1.6-2.3); Potassium 3.9 mmoL/L (3.5-5.1); Sodium 142 mmol/L (136-145)
--- NOTE | 2022-07-10 07:58 | EXP.ORTH.CON ---
History of Present Illness *Admission Date: 07/08/22 *History of present illness: This is a 47-year-old male with past medical history of COPD, atrial fibrillation, recent left-sided lacunar infarct, HFrEF, substance abuse namely methamphetamines, noncompliance, tobacco abuse, cirrhosis who presents emergency department today with complaints of bilateral lower extremity pain with increased erythema and edema. Patient was recently admitted here on 06/19/2022 for altered mental status requiring intubation for airway maintenance. At that time he underwent septic work-up and was noted to have Streptococcus dysgalactiae bacteremia and bilateral lower extremity wound cultures positive for staph and E. coli. He was treated with broad-spectrum antibiotics during that admission. He was extubated shortly after and was noted to have prolonged encephalopathy. CT scan at that time revealed lacunar infarct and patient was transferred to [place] for further neurological evaluation. Patient is known noncompliant medical patient with continued substance abuse. He does have a history of leaving AMA from the hospital. Unclear as to if patient has been on oral antibiotics since discharge from [place]. Emergency department work-up significant for bilateral lower extremity edema with chronic venous stasis disease and open ulcerations of bilateral extremities. X-ray imaging does not reveal any osteo involvement. Laboratory evaluation significant for chronic transaminitis, stable macrocytic anemia, elevated anion gap of 15 and elevated D-dimer of 2.30. Chest x-ray notable for pulmonary vascular congestion and likely pneumonia. He was treated emergency department broadly with vancomycin, cefepime and Flagyl. Due to the above-mentioned complaints he will be admitted to the hospitalist service for further evaluation and management. On my exam today he does have severe lipsmacking, tangential thinking and inattention. It does appear that patient has been engaging in further substance abuse. Notable wheezing on exam with room oxygen saturations in the mid 90s. Bilateral lower extremity wraps in place. Given elevated D-dimer, continued drug abuse, will get CT chest PE scan to rule out emboli. He has chronic bilateral lower extremity ulcers that have undergone, per his report, approximately [address] [facility] Medical History Chronic pain Cirrhosis COPD (chronic obstructive pulmonary disease) Hypertension Family History Other Heart disease Social History Smoking Status: Former smoker second hand exposure: Yes alcohol intake: former substance use type: crack/cocaine and methamphetamine current occupational status: disabled Travel in the last 8 weeks: None household members: friend(s) housing: house current occupation: unknown current occupational exposures/hazards: No caffeine: Yes Review of Systems Review of Systems Review of systems:: unable to obtain Constitutional Constitutional: Reports system reviewed and no additional complaints, except as documented Eyes Eyes: Reports system reviewed and no additional complaints, except as documented ENT Ears, Nose, Mouth, and Throat: Reports system reviewed and no additional complaints, except as documented *Cardiovascular Cardiovascular: Reports system reviewed and no additional complaints, except as documented *Respiratory Respiratory: Reports system reviewed and no additional complaints, except as documented *Gastrointestinal Gastrointestinal: Reports system reviewed and no additional complaints, except as documented *Musculoskeletal Musculoskeletal: Reports arthralgias Integumentary/Breasts Skin/Breast: Reports system reviewed and no additional complaints, except as documented *Neurologic Neurologic: Report
--- NOTE | 2022-07-10 08:06 | PC.NURSE ---
pt off floor with surgery
--- NOTE | 2022-07-10 08:21 | P.PN_ITS ---
[facility] Medical History Chronic pain Cirrhosis COPD (chronic obstructive pulmonary disease) Hypertension Family History Other Heart disease Social History Smoking Status: Former smoker second hand exposure: Yes alcohol intake: former substance use type: crack/cocaine and methamphetamine current occupational status: disabled Travel in the last 8 weeks: None household members: friend(s) housing: house current occupation: unknown current occupational exposures/hazards: No caffeine: Yes [facility] Anesthesia Checklist Patient Identification Patient Identification: Arm Band and Verbal (Name & ) Structural Data Admitted From: Inpatient Planned Operative Procedure/s: I & D Consent for Planned Operative Procedure(s) Verified: Yes NPO Status Verified Time NPO: 00:00 Additional verifications Anesthesia Reactions: No Hx Blood Transfusions: No Blood Transfusion Reaction: Yes Airway Assessment C-Spine Mobility Assessed: Yes TMJ Mobility Assessed: Yes Dentition: Edentulous Neurological Assessment Level of Consciousness: Awake Hx Seizures: No Numbness or tingling in extremities: No Anesthesia Plan Anesthesia Risk discussed: Yes Anesthesia Plan: Verified ASA Class: IV (IV E) Anesthesia Type: General
--- NOTE | 2022-07-10 08:50 | EXP.ANES.I ---
[facility] Anesthesia Record Part I Anesthesia Record I Intake, IV Amount: 500 Estimated blood loss (mL): 5 Urine output (mL): 0 Blood Pressure: 138/77 SaO2: 94 Pulse Rate: 67 Respiratory Rate: 10 Temperature: 98.1 F Patient is:: Drowsy and Oral/Nasal airway Stable to PACU at:: 08:45
--- NOTE | 2022-07-10 08:59 | EXP.OP.NOTE ---
Date of procedure: 07/10/22 Pre-op Diagnosis:: bilateral venous stasis ulcers Post-op Diagnosis:: same Procedure performed:: 23034: Debridement irrigation of right venous stasis ulcer, 2 x 2 centimeter 15932: Debridement irrigation of left venous stasis ulcers, 4 x 2 centimeters each 43581: Left leg wound vacuum-assisted closure Surgeon:: Mick Story JR, MD [employer]IST:: Thaddeus Eduardo Anesthesia: MAC Estimated blood loss (mL): 5 Clinical Note:: 47-year-old male with multiple medical comorbidities, bilateral venous stasis ulcer, history of medical noncompliance with cellulitis, bilateral lower extremity venous stasis ulcers. He was recently transferred to [facility] for evaluation for lacunar infarct. I had a discussion with him regarding further management including conservative wound care and antibiotics versus operative debridement. Having failed prior conservative management he was interested in more durable intervention. I recommended bilateral leg debridement irrigation with left-sided wound vacuum-assisted closure. He was amenable with the plan. We discussed the risk and benefits of surgery. Risks included but were not limited to pain, bleeding, infection, damage to adjacent structures, need for further surgery, wound healing complications, loss of limb, . Patient expressed verbal consent and written consent was obtained for the above procedure. Operative findings:: No gross purulence Operative note:: Patient was identified in preoperative holding. Operative site was marked in indelible ink. History, physical, consent were reviewed and updated. Patient was surrendered to the anesthesia team, taken to the operative suite, placed supine on a well-padded operative table. . Anesthesia was induced. The operative extremity was prepped and draped in the usual sterile fashion. The operative team donned sterile gowns and gloves and a timeout was called. All in attendance agreed regarding the patient's identity, procedure, operative site. Weight-based dose of antibiotics was given prior to incision. No tourniquet was utilized during this case. Bilateral lower extremities were prepped and draped. Utilizing a curette, I debrided bilateral ulcers through skin and subcutaneous tissue. This is a nonexcisional debridement. There is no exposed bone, no gross purulence. I took swab specimen of the left leg wounds. I copiously irrigated the wound with Pulsavac. I applied a wet-to-dry dressing to the right leg, wound vacuum-assisted closure to the left leg. Sterile dressings applied. Counts were correct x2. There were no apparent complications. I was present and scrubbed for the entire case. Postoperatively plan for every 72 hour wound vacuum-assisted closure changes to the left, wet-to-dry dressing changes twice daily to the right. Long-term I think he would benefit from evaluation by [facility] plastics. Condition: stable Disposition: PACU Specimens:: Swab specimen sent for culture Complications:: None apparent.
--- NOTE | 2022-07-10 09:39 | SUR.PHASEI ---
0912 called and gave detailed report to Joe Young RN 0915 transported pt to med/surg room. vital signs are stable. reports no pain at this time. left in stable condition with Joe Young RN at bedside.
--- NOTE | 2022-07-10 14:08 | EXP.ACUTE.PN ---
Subjective *Date: 07/10/22 *Time: 14:08 Interval history: Back from the OR. pain. No other concerns or complaints Medical Exam Vital signs and Labs for Last 24 Hours: Vital Signs Temp Pulse Pulse Pulse Resp BP BP 07/10/22 09:15 97.7 F 61 14 152/87 H 07/10/22 09:05 69 18 152/75 H 07/10/22 08:55 64 12 149/80 H 07/10/22 08:45 98.1 F 67 10 L 138/77 07/10/22 06:53 71 07/10/22 06:53 74 07/10/22 06:53 07/10/22 04:00 98.3 F 71 20 148/89 H 07/10/22 00:00 98.3 F 81 20 148/73 H 07/09/22 22:33 65 07/09/22 22:33 63 07/09/22 20:00 07/09/22 20:00 98.3 F 83 20 120/64 07/09/22 19:06 63 07/09/22 19:06 61 07/09/22 16:00 98 F 72 18 146/71 H 07/10/22 08:51 98.1 F 67 10 L 138/77 Pulse Ox 07/10/22 09:15 99 07/10/22 09:05 96 07/10/22 08:55 94 L 07/10/22 08:45 94 L 07/10/22 06:53 07/10/22 06:53 07/10/22 06:53 94 L 07/10/22 04:00 96 07/10/22 00:00 98 07/09/22 22:33 07/09/22 22:33 07/09/22 20:00 95 07/09/22 20:00 95 07/09/22 19:06 07/09/22 19:06 07/09/22 16:00 98 07/10/22 08:51 Intake and Output 07/09/22 07/10/22 07/10/22 23:59 07:59 15:59 Intake Total 480 / 1680 1500 / 1500 Output Total 350 / 1900 1550 / 1900 Balance 480 / 1430 -350 / -400 -50 / -400 Intake: Intake, Oral Amount 480 / 1680 1000 / 1000 Intake, Total IV Amount 500 / 500 Output: Output, Urine Amount 350 / 1900 1550 / 1900 Other: Number of Unmeasured Voids 1 Weight 128.026 kg Patient Weight 07/10/22 23:59 Weight 128.026 kg Laboratory Results - last 24 hr 07/10/22 06:58: WBC 6.0 D, RBC 2.98 L, Hgb 9.3 L, Hct 31.9 L, MCV 107.0 H, MCH 31.1, MCHC 29.1 L, RDW 17.0, Plt Count 121 L, MPV 8.1, Neut % (Auto) 67.8, Lymph % (Auto) 24.8, [place] % (Auto) 6.5, Eos % (Auto) 0.7, Baso % (Auto) 0.1, Neut # (Auto) 4.1, Lymph # (Auto) 1.5, [place] # (Auto) 0.4, Eos # (Auto) 0.0, Baso # (Auto) 0.0 07/10/22 06:58: Sodium 142, Potassium 3.9, Chloride 102, Carbon Dioxide 32 H, Anion Gap 11.9, BUN 19 D, Creatinine 0.60 L, Estimated Creat Clear 144, Estimated GFR 143, Est GFR ( Amer) 173, Glucose 115 H, Calcium 7.6 L, Magnesium 1.5 L D I & O for Labs for Last 24 Hours: Intake & Output 07/07/22 07/08/22 07/09/22 07/10/22 23:59 23:59 23:59 23:59 Intake Total 1680 / 1680 1500 / 1500 Output Total 750 / 750 250 / 250 1900 / 1900 Balance -750 / -750 1430 / 1430 -400 / -400 Weight 126.462 kg 125.827 kg 128.026 kg Microbiology Reports for the Last 24 Hours: Microbiology 07/08/22 22:55 Leg,Right Gram Stain - Final 07/08/22 22:55 Leg,Right Wound Culture - Preliminary 07/08/22 22:55 Leg,Left Gram Stain - Final 07/08/22 22:55 Leg,Left Wound Culture - Preliminary Constitutional: Present no acute distress, disheveled and agitated; Absent cooperative Head: Present atraumatic and normocephalic Respiratory: Absent accessory muscle use Cardiac: Present Reg Rate and Rhythm and S1/S2 GI: Present soft Rectal (male): Present deferred (male): Present deferred Extremities: Present normal inspection Comment:: Postoperative wrapping Skin: Present intact and dry Assessment and Plan *Assessment and plan (1) Cellulitis: Status: Acute Qualifiers: Laterality: left Site of cellulitis of extremity: lower extremity Category: Medical Code(s): L03.90 - Cellulitis, unspecified (2) Pneumonia: Status: Acute Category: Medical Code(s): J18.9 - Pneumonia, unspecified organism (3) Acute exacerbation of chronic obstructive pulmonary disease: Status: Acute Category: Medical Code(s): J44.1 - Chronic obstructive pulmonary disease with (acute) exacerbation (4) Venous stasis ulcer: Status: Acute Category: Medical Code(s): I83.009 - Varicose veins of unspecified lower extremity with ulce
[2022-07-10 17:33] LABS: Vancomycin,Trough 27.1 ug/mL (5.0-10.0)
[2022-07-11] VITALS (12 sets, daily range): BP systolic 148–166; BP diastolic 83–93; PULSE 61–112; RESP 16–20; TEMP 36.5–36.8; O2SAT 91–99; BMI 43.7
[2022-07-11 07:38] LABS: Basophils % 0.3 % (0.1-2.0); Eosinophils # 0.1 K/mm3 (0.0-0.4); Hematocrit 34.2 % (42.0-52.0); Hemoglobin 10.5 g/dL (14.1-18.0); Lymphocytes # 1.1 K/mm3 (0.7-4.5); Lymphocytes % 25.2 % (10-50); Mean Corpuscular HGB Conc 30.6 g/dL (31.8-35.4); Mean Corpuscular Hemoglobin 32.4 pg (27.0-31.2); Mean Corpuscular Volume 106.1 fl (80-94); Mean Platelet Volume 8.6 fl (7.4-10.4); Monocytes # 0.4 K/mm3 (0.1-1.0); Monocytes % 9.7 % (1.7-9.3); Neutrophils # 2.7 K/mm3 (1.8-7.8); Neutrophils % 61.7 % (37.0-80.0); Platelet Count 119 K/mm3 (142-424); Red Blood Count 3.22 M/mm3 (4.60-6.20); Red Cell Distribution Width 17.5 % (11.5-17.5); White Blood Count 4.3 K/mm3 (4.8-10.8)
[2022-07-11 07:47] LABS: Alanine Aminotransferase 41 U/L (12-78); Albumin Level 2.4 g/dl (3.5-5.0); Albumin/Globulin Ratio 0.5 (1.1-1.8); Alkaline Phosphatase 344 U/L (38-126); Anion Gap 12.2 mEq/L (5-15); Aspartate Amino Transferase 64 U/L (17-59); Bilirubin,Total 1.6 mg/dl (0.2-1.3); Blood Urea Nitrogen 14 mg/dl (9-20); Calcium 7.2 mg/dl (8.4-10.2); Carbon Dioxide 33 mmol/L (22.0-30.0); Chloride 95 mmol/L (98-107); Creatinine Clearance Estimated 144 mL/min (50-200); Estimated Glomerular Filt Rate 143 ml/min (>60); GFR (African American) 173 ML/MIN (>60); Glucose 100 mg/dl (74-100); Magnesium 1.4 mg/dl (1.6-2.3); Phosphorous 2.6 mg/dl (2.5-4.5); Potassium 3.2 mmoL/L (3.5-5.1); Sodium 137 mmol/L (136-145); Total Protein,Serum 7.4 g/dl (6.3-8.2)
--- NOTE | 2022-07-11 08:01 | EXP.PHA.CONS ---
Pharmacy Consult Date: 07/11/22 Time: 08:01 Referring provider: DR. Shelbi OLIVAREZ Reason for Consult:: VANCOMYCIN TROUGH LEVEL AND DOSE CHANGE Allergies Allergy/AdvReac Type Severity Reaction Status Date / Time codeine Allergy Severe Anaphylaxis Verified 05/20/22 13:20 guaifenesin [From Mucinex] Allergy Severe SWELLS Verified 05/20/22 13:20 ketorolac [From Toradol] Allergy Severe Difficulty Verified 05/20/22 13:20 Swallowing sulfamethoxazole AdvReac Intermediate Rash Verified 05/20/22 13:20 [From Bactrim] trimethoprim [From Bactrim] AdvReac Intermediate Rash Verified 05/20/22 13:20 Home Medications Medication Instructions Recorded Confirmed Type ipratropium 0.5 mg-albuterol 3 mg 3 ml inhalation Q4H PRN wheezing 07/02/22 07/09/22 Rx (2.5 mg base)/3 mL nebulization #90 mL soln albuterol sulfate 90 mcg/actuation 2 inh inhalation Q4HP PRN 07/09/22 07/09/22 History aerosol inhaler (ProAir HFA) Shortness Of Breath furosemide 40 mg tablet 40 mg PO DAILY Fluid 07/09/22 07/09/22 History gabapentin 600 mg tablet 600 mg PO TID Pain 07/09/22 07/09/22 History hydrocodone 7.5 mg-acetaminophen 1 tab PO TIDP PRN Pain 07/09/22 07/09/22 History 325 mg tablet lactulose 20 gram/30 mL oral 30 g PO TID CONSTIPATION 07/09/22 07/09/22 History solution metoprolol succinate 50 mg 50 mg PO DAILY Hypertension 07/09/22 07/09/22 History tablet,extended release 24 hr (Toprol XL) potassium chloride 10 mEq 10 meq PO DAILY Supplement 07/09/22 07/09/22 History tablet,extended release prednisone 10 mg tablet 50 mg PO DAILY STEROID 07/09/22 07/09/22 History spironolactone 50 mg tablet 50 mg PO DAILY Fluid 07/09/22 07/09/22 History New Prescriptions to Start Prescriptions: Height: 1.75 m Weight: 133.866 kg Laboratory Results:: Laboratory Results - last 24 hr 07/10/22 06:58: Sodium 142, Potassium 3.9, Chloride 102, Carbon Dioxide 32 H, Anion Gap 11.9, BUN 19 D, Creatinine 0.60 L, Estimated Creat Clear 144, Estimated GFR 143, Est GFR ( Amer) 173, Glucose 115 H, Calcium 7.6 L, Magnesium 1.5 L D 07/10/22 17:00: Vancomycin Trough 27.1 H 07/11/22 07:28: WBC 4.3 L D, RBC 3.22 L, Hgb 10.5 L, Hct 34.2 L, MCV 106.1 H, MCH 32.4 H, MCHC 30.6 L, RDW 17.5, Plt Count 119 L, MPV 8.6, Neut % (Auto) 61.7, Lymph % (Auto) 25.2, [place] % (Auto) 9.7 H, Eos % (Auto) 3.0, Baso % (Auto) 0.3, Neut # (Auto) 2.7, Lymph # (Auto) 1.1, [place] # (Auto) 0.4, Eos # (Auto) 0.1, Baso # (Auto) 0.0 07/11/22 07:28: Sodium 137, Potassium 3.2 L, Chloride 95 L, Carbon Dioxide 33 H, Anion Gap 12.2, BUN 14 D, Creatinine 0.60 L, Estimated Creat Clear 144, Estimated GFR 143, Est GFR ( Amer) 173, Glucose 100, Calcium 7.2 L, Phosphorus 2.6, Magnesium 1.4 L, Total Bilirubin 1.6 H, AST 64 H, ALT 41, Alkaline Phosphatase 344 H, Total Protein 7.4, Albumin 2.4 L, Globulin 5.0 H, Albumin/Globulin Ratio 0.5 L Medical History: Medical History (Updated 07/08/22 @ 17:51 by Cristopher Woodall MD) Chronic pain Cirrhosis COPD (chronic obstructive pulmonary disease) Hypertension Assessment and Plan Assessment and plan all Dx Assessment and Plan for all problems:: VANCOMYCIN TROUGH LEVEL FOR PATIENT WAS 27.1 LAST NIGHT AND DOSE WAS HELD. RECOMMEND DECREASING DOSE TO 2,000MG EVERY 12 HOURS WITH CALCULATED AUC OF 442. WILL OBTAIN TROUGH LEVEL PRIOR TO FOURTH DOSE AND ADJUST APPROPRIATE. -SILVA BOWLES, EDILIAD
--- NOTE | 2022-07-11 09:10 | MR_ITS ---
FINAL REPORT CLINICAL HISTORY: RULE OUT OSTEOMYELITIS. PATIENT'S EXAM WAS SUPPOSE TO BE DONE WITH AND WITHOUT. Done without because patient was in pain and could not hold still for exam. Exam is limited due to patient pain. FINDINGS: Multiplanar MR imaging of the left lower leg was performed without contrast. There is moderate motion artifact. There is no evidence of marrow replacement to indicate osteomyelitis. There is no evidence of fracture, bone bruise or marrow edema. No bony mass is identified. The musculature is intact. There is no evidence of abscess. There is nonspecific, subcutaneous edema and minimal, nonspecific calf muscle edema. No soft tissue mass or cyst is identified. IMPRESSION: No MR findings of osteomyelitis. Reviewed, Interpreted and Dictated by Tam Billings MD Transcribed by Fanta Cuevas Authenticated and [facility]
--- NOTE | 2022-07-11 10:26 | EXP.ORTH.PN ---
Subjective *Date: 07/11/22 *Time: 09:50 Interval history: Mr. Ragland is a 47 year old male patient who underwent debridement and irrigation of his bilateral venous stasis ulcers with application of left wound vacuum assisted closure yesterday 07/10/[address] Story. Today the patient is postop day #1. This morning he is lying comfortably in bed. He reports pain in his bilateral lower extremities that he states is well controlled with as needed pain medication and rest. No history of any distal tingling/numbness. He denies any other symptoms or concerns at this time. Ortho Exam (Inpt) Vital signs and Labs for Last 24 Hours: Temp Pulse Resp BP Pulse Ox 97.9 F 90 20 153/93 H 95 07/11/22 03:50 07/11/22 06:19 07/11/22 03:50 07/11/22 03:50 07/11/22 06:19 Laboratory Results - last 24 hr 07/10/22 17:00: Vancomycin Trough 27.1 H 07/11/22 07:28: WBC 4.3 L D, RBC 3.22 L, Hgb 10.5 L, Hct 34.2 L, MCV 106.1 H, MCH 32.4 H, MCHC 30.6 L, RDW 17.5, Plt Count 119 L, MPV 8.6, Neut % (Auto) 61.7, Lymph % (Auto) 25.2, [place] % (Auto) 9.7 H, Eos % (Auto) 3.0, Baso % (Auto) 0.3, Neut # (Auto) 2.7, Lymph # (Auto) 1.1, [place] # (Auto) 0.4, Eos # (Auto) 0.1, Baso # (Auto) 0.0 07/11/22 07:28: Sodium 137, Potassium 3.2 L, Chloride 95 L, Carbon Dioxide 33 H, Anion Gap 12.2, BUN 14 D, Creatinine 0.60 L, Estimated Creat Clear 144, Estimated GFR 143, Est GFR ( Amer) 173, Glucose 100, Calcium 7.2 L, Phosphorus 2.6, Magnesium 1.4 L, Total Bilirubin 1.6 H, AST 64 H, ALT 41, Alkaline Phosphatase 344 H, Total Protein 7.4, Albumin 2.4 L, Globulin 5.0 H, Albumin/Globulin Ratio 0.5 L I & O for Labs for Last 24 Hours: Intake & Output 07/08/22 07/09/22 07/10/22 07/11/22 23:59 23:59 23:59 23:59 Intake Total 1680 / 1680 2060 / 2060 100 / 100 Output Total 750 / 750 250 / 250 2900 / 2900 840 / 840 Balance -750 / -750 1430 / 1430 -840 / -840 -740 / -740 Weight 278 lb 12.8 oz 277 lb 6.4 oz 282 lb 3.984 oz 295 lb 2 oz Microbiology Reports for the Last 24 Hours: Microbiology 07/08/22 22:55 Leg,Right Gram Stain - Final 07/08/22 22:55 Leg,Right Wound Culture - Preliminary Gram Negative Rods Gram Negative Rods#2 Gram Negative Rods#3 Gram Positive Cocci 07/08/22 22:55 Leg,Left Gram Stain - Final 07/08/22 22:55 Leg,Left Wound Culture - Preliminary Gram Negative Rods Gram Negative Rods#2 Gram Negative Rods#3 Gram Positive Cocci 07/08/22 17:54 Blood Blood Culture - Preliminary NO GROWTH AFTER 48 HOURS 07/08/22 17:54 Blood Blood Culture - Preliminary NO GROWTH AFTER 48 HOURS 07/10/22 08:31 Leg,Left - Other Gram Stain - Final Head: Present normocephalic and atraumatic Eyes: Present as per HPI ENT: Present normal exam Neck: Present normal inspection, full ROM and trachea midline; Absent lymphadenopathy Respiratory: Present normal respiratory effort, able to speak in complete sentences and symmetric chest movement; Absent accessory muscle use Cardiac: Present Reg Rate and Rhythm GI: Present soft; Absent tenderness Comment:: Upon examination of the bilateral lower extremities: Dressings present over the left valero and right valero are clean, dry, and intact. No evidence of drainage or bleeding noted. Left leg wound VAC with good seal, scant serous output. Thigh and calf are soft and nontender; Scott's sign is negative. No clinical evidence of DVT or compartment syndrome noted. Posterior tibial pulses 1+ bilaterally; sensation to light touch is grossly intact throughout. Patient is actively mobilizing the foot, ankle, and toes. Skin: Present intact, warm and normal turgor; Absent cyanosis, erythema, lesions or jaundice Neuro: Present Cranial Nerve 2-12 Int
--- NOTE | 2022-07-11 10:39 | PC.NURSE ---
off floor with radiology
[2022-07-11 10:52] LABS: Lipase 97 U/L (23-300)
--- NOTE | 2022-07-11 13:48 | EXP.ANES.II ---
[facility] Anesthesia Record Part II Anesthesia Record Part II Discharge Time: 09:15 (07/10/22) Destination: Medical Surgical Department PACU nurse assessment reviewed?: Yes Patient Condition:: Good Anesthesia Complications:: None Swallowing reflex intact?: Yes Cyanosis?: No Blood Pressure: 152/87 Pulse Rate: 61 Temperature: 97.7 F Mental Status: Alert & Oriented Pain level:: 0 Nausea and/or vomitting:: None Intake, IV Amount: 0
--- NOTE | 2022-07-11 15:19 | SW/DCPLANNER ---
Addendum entered by Sheri Suarez 07/13/22 15:52: I have arranged [facility] for this patient to transport home today: confirmation # [id number]. I have also set up transportation for upcoming wound care dates to change wound vac dressing at [facility]: 07/15 at 3:30PM, 07/19 at 11:00AM and 07/22 at 11:00AM confirmation number is [id number]. Addendum entered by Sheri Suarez 07/13/22 12:34: Due to patient not having an established address he will not be a candidate for home health services. Patient agrees to use [facility] and return to [facility] for wound vac care. I will arrange [facility] once medically stable for discharge today. Addendum entered by Sheri Suarez 07/12/22 13:16: Due to patient's current drug use no facility is able to accept him at this time. I discussed with patient returning home with home health services for wound vac care and dressing changes. Patient is agreeable to home health services at discharge. Patient will be medically stable for discharge tomorrow pending no setbacks. Addendum entered by Sheri Suarez 07/12/22 08:04: Mihaela montalvo/ [facility] and Sameera selvin/ [facility] are currently reviewing this patient's information. Original Note: I spoke with this patient regarding plans once he is medically stable for discharge. Patient will need wound vac care and dressing changes. Patient is agreeable to SNF level of care. Patient information will be faxed to [facility], [facility] and [facility] in [place]. Patient is agreeable to any facility. Discharge date is unknown at this time. I will follow up with facilities once information is reviewed.
--- NOTE | 2022-07-11 16:26 | EXP.ACUTE.PN ---
Subjective *Date: 07/11/22 *Time: 16:26 Interval history: No acute events overnight. Patient states he still is having pain in his lower extremities however it is slightly more controlled. Patient is going down for MRI for osteomyelitis later today. Other than continue management of pain he has no other concerns or complaints at this time. Medical Exam Vital signs and Labs for Last 24 Hours: Vital Signs Temp Pulse Pulse Resp BP BP Pulse Ox 07/11/22 15:36 87 07/11/22 15:36 89 07/11/22 12:00 98.1 F 85 18 148/85 H 98 07/11/22 08:00 98.3 F 79 18 148/83 H 97 07/11/22 06:19 90 07/11/22 06:19 88 07/11/22 06:19 95 07/11/22 03:50 97.9 F 86 20 153/93 H 97 07/10/22 20:00 96 07/11/22 01:36 70 07/11/22 01:35 73 07/10/22 23:26 98.0 F 84 20 150/80 H 95 07/10/22 19:39 98.8 F 83 20 158/85 H 96 07/11/22 13:49 97.7 F 61 152/87 H Intake and Output 07/11/22 07/11/22 07/11/22 07:59 15:59 23:59 Intake Total 100 / 580 480 / 580 Output Total 840 / 1540 700 / 1540 Balance -740 / -960 -220 / -960 Intake: Intake, Oral Amount 480 / 480 Intake, Total IV Amount 100 / 100 0 / 100 Meropenem 1 gm In 0.9 % Sodium 100 / 100 Chloride 100 ml @ 100 mls/hr IV Q8H [facility] Rx#:[id number] Output: Output, Urine Amount 840 / 1540 700 / 1540 Other: Weight 133.866 kg 133.866 kg Patient Weight 07/11/22 23:59 Weight 133.866 kg Laboratory Results - last 24 hr 07/10/22 17:00: Vancomycin Trough 27.1 H 07/11/22 07:28: WBC 4.3 L D, RBC 3.22 L, Hgb 10.5 L, Hct 34.2 L, MCV 106.1 H, MCH 32.4 H, MCHC 30.6 L, RDW 17.5, Plt Count 119 L, MPV 8.6, Neut % (Auto) 61.7, Lymph % (Auto) 25.2, [place] % (Auto) 9.7 H, Eos % (Auto) 3.0, Baso % (Auto) 0.3, Neut # (Auto) 2.7, Lymph # (Auto) 1.1, [place] # (Auto) 0.4, Eos # (Auto) 0.1, Baso # (Auto) 0.0 07/11/22 07:28: Sodium 137, Potassium 3.2 L, Chloride 95 L, Carbon Dioxide 33 H, Anion Gap 12.2, BUN 14 D, Creatinine 0.60 L, Estimated Creat Clear 144, Estimated GFR 143, Est GFR ( Amer) 173, Glucose 100, Calcium 7.2 L, Phosphorus 2.6, Magnesium 1.4 L, Total Bilirubin 1.6 H, AST 64 H, ALT 41, Alkaline Phosphatase 344 H, Total Protein 7.4, Albumin 2.4 L, Globulin 5.0 H, Albumin/Globulin Ratio 0.5 L 07/11/22 07:28: Lipase 97 I & O for Labs for Last 24 Hours: Intake & Output 07/08/22 07/09/22 07/10/22 07/11/22 23:59 23:59 23:59 23:59 Intake Total 1680 / 1680 2060 / 2060 580 / 580 Output Total 750 / 750 250 / 250 2900 / 2900 1540 / 1540 Balance -750 / -750 1430 / 1430 -840 / -840 -960 / -960 Weight 126.462 kg 125.827 kg 128.026 kg 133.866 kg Microbiology Reports for the Last 24 Hours: Microbiology 07/10/22 08:31 Leg,Left - Other Gram Stain - Final 07/10/22 08:31 Leg,Left - Other Wound Culture - Preliminary NO GROWTH AFTER 24 HOURS 07/08/22 22:55 Leg,Right Gram Stain - Final 07/08/22 22:55 Leg,Right Wound Culture - Preliminary Gram Negative Rods Gram Negative Rods#2 Gram Negative Rods#3 Gram Positive Cocci 07/08/22 22:55 Leg,Left Gram Stain - Final 07/08/22 22:55 Leg,Left Wound Culture - Preliminary Gram Negative Rods Gram Negative Rods#2 Gram Negative Rods#3 Gram Positive Cocci 07/08/22 17:54 Blood Blood Culture - Preliminary NO GROWTH AFTER 48 HOURS 07/08/22 17:54 Blood Blood Culture - Preliminary NO GROWTH AFTER 48 HOURS Constitutional: Present no acute distress and morbidly obese Head: Present normocephalic Neck: Present normal inspection Respiratory: Present CTA bilaterally; Absent accessory muscle use, rhonchi, wheezes or crackles
[2022-07-12] VITALS (9 sets, daily range): BP systolic 139–172; BP diastolic 71–99; PULSE 64–111; RESP 16–20; TEMP 36.5–37.1; O2SAT 96–100; BMI 43.2
--- NOTE | 2022-07-12 05:52 | PC.NURSE ---
no changes from previous assessment, pt is alert and oriented x4, VSS, wound vac intact to LLE with giovanni dressing intact, giovanni dressing intact to RLE, pt rates pain 10 and given morphine with relief as prescribed, pain pill x1 given with minimal relief, 2+ generalized edema noted, pt voiding without difficulty, no other issues or concerns noted at this time, no acute distress
--- NOTE | 2022-07-12 07:48 | EXP.ACUTE.PN ---
Subjective *Date: 07/12/22 *Time: 17:04 Interval history: Patient continues to complain of pain. Shortness of breath stable. Tolerating breathing treatment on rounds this morning. Wound VAC in place on left lower extremity. Wound cultures returned today, positive for multiple microbes with improved sensitivity. Will transition to IV formulations for now, anticipate de-escalation to oral in the coming days. Patient denies chest pain, nausea, vomiting, diarrhea. Afebrile. Hemodynamically stable. Medical Exam Vital signs and Labs for Last 24 Hours: Vital Signs Temp Pulse Pulse Resp BP BP Pulse Ox 07/12/22 04:00 98.0 F 82 18 139/71 96 07/11/22 20:00 91 L 07/12/22 00:00 97.7 F 111 H 20 155/78 H 98 07/11/22 21:27 87 07/11/22 21:27 88 07/11/22 20:00 98.2 F 85 18 166/90 H 91 L 07/11/22 18:24 112 H 07/11/22 18:24 94 H 07/11/22 16:00 97.9 F 89 16 160/93 H 99 07/11/22 15:36 87 07/11/22 15:36 89 07/11/22 12:00 98.1 F 85 18 148/85 H 98 07/11/22 08:00 98.3 F 79 18 148/83 H 97 07/11/22 13:49 97.7 F 61 152/87 H Intake and Output 07/11/22 07/11/22 07/12/22 15:59 23:59 07:59 Intake Total 1200 / 1780 480 / 1780 1350 / 1350 Output Total 1500 / 3315 975 / 3315 1300 / 1300 Balance -300 / -1535 -495 / -1535 50 / 50 Intake: Intake, Oral Amount 1200 / 1680 480 / 1680 Intake, Other Amount 1000 / 1000 Intake, Total IV Amount 0 / 100 350 / 350 Meropenem 1 gm In 0.9 % Sodium 100 / 100 Chloride 100 ml @ 100 mls/hr IV Q8H [facility] Rx#:[id number] Vancomycin HCl 2,000 mg In 0.9 250 / 250 % Sodium Chloride 250 ml @ 125 mls/hr IV Q12H [facility] Rx#:[id number] Output: Output, Urine Amount 1500 / 3315 975 / 3315 1300 / 1300 Other: Intake, Other Source Saline Solution Number of Unmeasured Voids 0 0 Weight 133.866 kg 132.222 kg Patient Weight 07/12/22 23:59 Weight 132.222 kg Laboratory Results - last 24 hr 07/11/22 07:28: Sodium 137, Potassium 3.2 L, Chloride 95 L, Carbon Dioxide 33 H, Anion Gap 12.2, BUN 14 D, Creatinine 0.60 L, Estimated Creat Clear 144, Estimated GFR 143, Est GFR ( Amer) 173, Glucose 100, Calcium 7.2 L, Phosphorus 2.6, Magnesium 1.4 L, Total Bilirubin 1.6 H, AST 64 H, ALT 41, Alkaline Phosphatase 344 H, Total Protein 7.4, Albumin 2.4 L, Globulin 5.0 H, Albumin/Globulin Ratio 0.5 L 07/11/22 07:28: Lipase 97 I & O for Labs for Last 24 Hours: Intake & Output 07/09/22 07/10/22 07/11/22 07/12/22 23:59 23:59 23:59 23:59 Intake Total 1680 / 1680 2060 / 2060 1780 / 1780 1350 / 1350 Output Total 250 / 250 2900 / 2900 3315 / 3315 1300 / 1300 Balance 1430 / 1430 -840 / -840 -1535 / -1535 50 / 50 Weight 125.827 kg 128.026 kg 133.866 kg 132.222 kg Microbiology Reports for the Last 24 Hours: Microbiology 07/10/22 08:31 Leg,Left - Other Gram Stain - Final 07/10/22 08:31 Leg,Left - Other Wound Culture - Preliminary NO GROWTH AFTER 24 HOURS 07/08/22 22:55 Leg,Right Gram Stain - Final 07/08/22 22:55 Leg,Right Wound Culture - Preliminary Gram Negative Rods Gram Negative Rods#2 Gram Negative Rods#3 Gram Positive Cocci 07/08/22 22:55 Leg,Left Gram Stain - Final 07/08/22 22:55 Leg,Left Wound Culture - Preliminary Gram Negative Rods Gram Negative Rods#2 Gram Negative Rods#3 Gram Positive Cocci Constitutional: Present no acute distress and morbidly obese Head: Present normocephalic Neck: Present normal inspection Respiratory: Present CTA bilaterally; Absent accessory muscle use, rhonchi, wheezes or crackles Cardiac: Present Reg Rate and Rhythm and No Murmur GI: Present soft and tenderness
[2022-07-12 07:54] LABS: Basophils % 0.3 % (0.1-2.0); Eosinophils # 0.2 K/mm3 (0.0-0.4); Eosinophils % 4.2 % (0.1-12.0); Hematocrit 36.7 % (42.0-52.0); Hemoglobin 11.2 g/dL (14.1-18.0); Lymphocytes # 1.2 K/mm3 (0.7-4.5); Mean Corpuscular HGB Conc 30.5 g/dL (31.8-35.4); Mean Corpuscular Hemoglobin 32.6 pg (27.0-31.2); Mean Corpuscular Volume 106.6 fl (80-94); Mean Platelet Volume 8.5 fl (7.4-10.4); Monocytes # 0.4 K/mm3 (0.1-1.0); Monocytes % 8.3 % (1.7-9.3); Neutrophils # 2.8 K/mm3 (1.8-7.8); Neutrophils % 61.2 % (37.0-80.0); Platelet Count 109 K/mm3 (142-424); Red Blood Count 3.45 M/mm3 (4.60-6.20); Red Cell Distribution Width 17.3 % (11.5-17.5); White Blood Count 4.6 K/mm3 (4.8-10.8)
[2022-07-12 08:02] LABS: Alanine Aminotransferase 45 U/L (12-78); Albumin Level 2.4 g/dl (3.5-5.0); Albumin/Globulin Ratio 0.5 (1.1-1.8); Alkaline Phosphatase 330 U/L (38-126); Aspartate Amino Transferase 86 U/L (17-59); Bilirubin,Total 1.9 mg/dl (0.2-1.3); Blood Urea Nitrogen 12 mg/dl (9-20); Calcium 7.2 mg/dl (8.4-10.2); Carbon Dioxide 34 mmol/L (22.0-30.0); Chloride 94 mmol/L (98-107); Creatinine Clearance Estimated 173 mL/min (50-200); Estimated Glomerular Filt Rate 177 ml/min (>60); GFR (African American) 214 ML/MIN (>60); Globulin 4.8 g/dL (1.3-3.2); Glucose 160 mg/dl (74-100); Sodium 136 mmol/L (136-145); Total Protein,Serum 7.2 g/dl (6.3-8.2)
[2022-07-12 08:21] LABS: Anion Gap 11.6 mEq/L (5-15); Potassium 3.6 mmoL/L (3.5-5.1)
[2022-07-12 08:22] LABS: Magnesium 1.8 mg/dl (1.6-2.3)
[2022-07-12 08:28] LABS: Phosphorous 3.3 mg/dl (2.5-4.5)
--- NOTE | 2022-07-12 11:17 | HMH.PTEV ---
Physical Therapy Evaluation Rehab PT IP Evaluation Start: 07/12/22 10:32 Freq: ONCE Status: Active Protocol: Document 07/12/22 11:13 SHAE (Rec: 07/12/22 11:17 SHAE [id number]) Subjective/History History History This is a 47-year-old male with past medical history of COPD, atrial fibrillation, recent left-sided lacunar infarct, HFrEF, substance abuse namely methamphetamines, noncompliance, tobacco abuse, cirrhosis who presents emergency department today with complaints of bilateral lower extremity pain with increased erythema and edema. Patient was recently admitted here on 06/19/2022 for altered mental status requiring intubation for airway maintenance. At that time he underwent septic work-up and was noted to have Streptococcus dysgalactiae bacteremia and bilateral lower extremity wound cultures positive for staph and E. coli . copied from H&P Subjective Subjective Pt agrees to participate Rehab PT IP Eval Objective Appearance Patient Behavior Cooperative Patient Orientation Person,Place,Time Difficulty following instructions none Speech Pattern Appropriate Ambulation Patient Able to Ambulate Yes Ambulation Observation IP General Gait Pattern Observation No Deviations/Normal Ambulation Distance (feet) 10 Ambulation Assistive Device None Ambulation Ability Independent Balance Ability to Arise Able, w/o using arms Sitting Balance Steady, safe Standing Balance Narrow stance w/o support Dynamic Sitting Balance Ability Normal Dynamic Standing Balance Ability Normal Transfers Bed Transfer Ability Independent Chair Transfer Ability Independent Sit to Stand Bed Transfer Ability Independent Sit to Stand Chair Transfer Ability Independent Rehab PT IP prob,goals,plan Problems Date of Evaluation: 07/12/22 Rehab Potential Rehab Potential Innapropriate for Skilled Therapy Discharge Plan PT Discharge Plan Pt is fully I w/ transfers and
--- NOTE | 2022-07-12 11:23 | EXP.PHA.PN ---
Subjective *Date: 07/12/22 *Time: 11:23 Medical Exam Vital signs and Labs for Last 24 Hours: Vital Signs Temp Pulse Pulse Resp BP BP Pulse Ox 07/12/22 11:09 98.0 F 75 16 163/92 H 97 07/12/22 09:47 77 18 07/12/22 09:47 77 07/12/22 09:47 71 07/12/22 09:47 97 07/12/22 07:55 98.3 F 88 18 143/89 H 99 07/12/22 04:00 98.0 F 82 18 139/71 96 07/11/22 20:00 91 L 07/12/22 00:00 97.7 F 111 H 20 155/78 H 98 07/11/22 21:27 87 07/11/22 21:27 88 07/11/22 20:00 98.2 F 85 18 166/90 H 91 L 07/11/22 18:24 112 H 07/11/22 18:24 94 H 07/11/22 16:00 97.9 F 89 16 160/93 H 99 07/11/22 15:36 87 07/11/22 15:36 89 07/11/22 12:00 98.1 F 85 18 148/85 H 98 07/11/22 13:49 97.7 F 61 152/87 H Intake and Output 07/11/22 07/12/22 07/12/22 23:59 07:59 15:59 Intake Total 480 / 1780 1710 / 1710 Output Total 975 / 3315 1300 / 2300 1000 / 2300 Balance -495 / -1535 410 / -590 -1000 / -590 Intake: Intake, Oral Amount 480 / 1680 360 / 360 Intake, Other Amount 1000 / 1000 Intake, Total IV Amount 350 / 350 Meropenem 1 gm In 0.9 % Sodium 100 / 100 Chloride 100 ml @ 100 mls/hr IV Q8H [facility] Rx#:[id number] Vancomycin HCl 2,000 mg In 0.9 250 / 250 % Sodium Chloride 250 ml @ 125 mls/hr IV Q12H [facility] Rx#:[id number] Output: Output, Urine Amount 975 / 3315 1300 / 2300 1000 / 2300 Other: Intake, Other Source Saline Solution Number of Unmeasured Voids 0 0 1 Weight 132.222 kg Patient Weight 07/12/22 23:59 Weight 132.222 kg Laboratory Results - last 24 hr 07/12/22 07:15: WBC 4.6 L, RBC 3.45 L, Hgb 11.2 L, Hct 36.7 L, MCV 106.6 H, MCH 32.6 H, MCHC 30.5 L, RDW 17.3, Plt Count 109 L, MPV 8.5, Neut % (Auto) 61.2, Lymph % (Auto) 26.0, [place] % (Auto) 8.3, Eos % (Auto) 4.2, Baso % (Auto) 0.3, Neut # (Auto) 2.8, Lymph # (Auto) 1.2, [place] # (Auto) 0.4, Eos # (Auto) 0.2, Baso # (Auto) 0.0 07/12/22 07:15: Sodium 136, Potassium 3.6, Chloride 94 L, Carbon Dioxide 34 H, Anion Gap 11.6, BUN 12, Creatinine 0.50 L, Estimated Creat Clear 173, Estimated GFR 177, Est GFR ( Amer) 214 D, Glucose 160 H D, Calcium 7.2 L, Phosphorus 3.3 D, Total Bilirubin 1.9 H, AST 86 H D, ALT 45, Alkaline Phosphatase 330 H, Total Protein 7.2, Albumin 2.4 L, Globulin 4.8 H, Albumin/Globulin Ratio 0.5 L 07/12/22 07:15: Magnesium 1.8 D I & O for Labs for Last 24 Hours: Intake & Output 07/09/22 07/10/22 07/11/22 07/12/22 23:59 23:59 23:59 23:59 Intake Total 1680 / 1680 2060 / 2060 1780 / 1780 1710 / 1710 Output Total 250 / 250 2900 / 2900 3315 / 3315 2300 / 2300 Balance 1430 / 1430 -840 / -840 -1535 / -1535 -590 / -590 Weight 125.827 kg 128.026 kg 133.866 kg 132.222 kg Microbiology Reports for the Last 24 Hours: Microbiology 07/10/22 08:31 Leg,Left - Other Gram Stain - Final 07/10/22 08:31 Leg,Left - Other Wound Culture - Preliminary 07/08/22 22:55 Leg,Left Gram Stain - Final 07/08/22 22:55 Leg,Left Wound Culture - Final Citrobacter freundii Stenotrophomonas maltophilia Enterococcus faecalis 07/08/22 22:55 Leg,Right Gram Stain - Final 07/08/22 22:55 Leg,Right Wound Culture - Final Citrobacter freundii Stenotrophomonas maltophilia Enterococcus faecalis The patient's infection will respond to the chosen ABx?: Yes (WOUND = C.FREUNDII, S.MALTOPHILIA, E.FAECALIS) Is the patient receiving the right drug, dose, and route?: Yes Could a more targeted ABx be ordered?: Yes (RECOMMENDED CHANGE TO LEVAQUIN/AMOXIL, )
--- NOTE | 2022-07-12 13:19 | EXP.ORTH.PN ---
Subjective *Date: 07/12/22 *Time: 13:21 Interval history: Mr. Ragland is a 47 year old male patient who underwent debridement and irrigation of his bilateral venous stasis ulcers with application of left wound vacuum assisted closure on 07/10/[address] Story. Today the patient is postop day #2. This afternoon he sitting up comfortably in bed eating lunch. He reports pain in his bilateral lower extremities that he states is well controlled with as needed pain medication and rest. He reports more pain in his left lower extremity than the right. No history of any distal tingling/numbness. He denies any other symptoms or concerns at this time. Ortho Exam (Inpt) Vital signs and Labs for Last 24 Hours: Temp Pulse Resp BP Pulse Ox 98.0 F 75 16 163/92 H 97 07/12/22 11:09 07/12/22 11:09 07/12/22 11:09 07/12/22 11:09 07/12/22 11:09 Laboratory Results - last 24 hr 07/12/22 07:15: WBC 4.6 L, RBC 3.45 L, Hgb 11.2 L, Hct 36.7 L, MCV 106.6 H, MCH 32.6 H, MCHC 30.5 L, RDW 17.3, Plt Count 109 L, MPV 8.5, Neut % (Auto) 61.2, Lymph % (Auto) 26.0, [place] % (Auto) 8.3, Eos % (Auto) 4.2, Baso % (Auto) 0.3, Neut # (Auto) 2.8, Lymph # (Auto) 1.2, [place] # (Auto) 0.4, Eos # (Auto) 0.2, Baso # (Auto) 0.0 07/12/22 07:15: Sodium 136, Potassium 3.6, Chloride 94 L, Carbon Dioxide 34 H, Anion Gap 11.6, BUN 12, Creatinine 0.50 L, Estimated Creat Clear 173, Estimated GFR 177, Est GFR ( Amer) 214 D, Glucose 160 H D, Calcium 7.2 L, Phosphorus 3.3 D, Total Bilirubin 1.9 H, AST 86 H D, ALT 45, Alkaline Phosphatase 330 H, Total Protein 7.2, Albumin 2.4 L, Globulin 4.8 H, Albumin/Globulin Ratio 0.5 L 07/12/22 07:15: Magnesium 1.8 D I & O for Labs for Last 24 Hours: Intake & Output 07/09/22 07/10/22 07/11/22 07/12/22 23:59 23:59 23:59 23:59 Intake Total 1680 / 1680 2060 / 2060 1780 / 1780 2190 / 2190 Output Total 250 / 250 2900 / 2900 3315 / 3315 2700 / 2700 Balance 1430 / 1430 -840 / -840 -1535 / -1535 -510 / -510 Weight 277 lb 6.4 oz 282 lb 3.984 oz 295 lb 2 oz 291 lb 8 oz Microbiology Reports for the Last 24 Hours: Microbiology 07/10/22 08:31 Leg,Left - Other Gram Stain - Final 07/10/22 08:31 Leg,Left - Other Wound Culture - Preliminary 07/08/22 22:55 Leg,Left Gram Stain - Final 07/08/22 22:55 Leg,Left Wound Culture - Final Citrobacter freundii Stenotrophomonas maltophilia Enterococcus faecalis 07/08/22 22:55 Leg,Right Gram Stain - Final 07/08/22 22:55 Leg,Right Wound Culture - Final Citrobacter freundii Stenotrophomonas maltophilia Enterococcus faecalis Head: Present normocephalic and atraumatic Eyes: Present as per HPI ENT: Present normal exam Neck: Present normal inspection, full ROM and trachea midline; Absent lymphadenopathy Respiratory: Present normal respiratory effort, able to speak in complete sentences and symmetric chest movement; Absent accessory muscle use Cardiac: Present Reg Rate and Rhythm GI: Present soft; Absent tenderness Comment:: Upon examination of the bilateral lower extremities: Dressings present over the left valero and right valero are clean, dry, and intact. No evidence of drainage or bleeding noted. Left leg wound VAC with good seal, scant serous output. Thigh and calf are soft and nontender; Scott's sign is negative. No clinical evidence of DVT or compartment syndrome noted. Posterior tibial pulses 1+ bilaterally; sensation to light touch is grossly intact throughout. Patient is actively mobilizing the foot, ankle, and toes. Skin: Present intact, warm and normal turgor; Absent cyanosis, erythema, lesions or jaundice Neuro: Present Cranial Nerve 2-12 Intact, Motor Function Intact, Sensory Function Intact, alert, awake, oriented x 3, tone normal and moves all extremities; Absent Numbness or Tingling Assessment and P
--- NOTE | 2022-07-12 14:55 | PC.NURSE ---
PT IS RESTING IN BED. MEDICATED PER OCT FOR DISCOMFORT. PT STATES NORCO 7.5 DOES NOT HELP WITH HIS PAIN AT ALL AND IS REQUESTING OXYCODONE 10 MG. PT HAS BEEN SLEEPING ON AND OFF T/O THE SHIFT. EATING AND DRINKING WELL. VOIDING WELL. WOULD VAC NOTED TO THE LLE. DRESSING NOTED TO THE RLE (CHANGED THIS SHIFT). WILL CONTINUE TO MONITOR.
[2022-07-13] VITALS: BP 141/81; PULSE 74; RESP 18; TEMP 37.1; O2SAT 94
[2022-07-13 04:00] VITALS: BP 123/62; PULSE 78; RESP 18; TEMP 36.8; O2SAT 98
[2022-07-13 05:00] VITALS: BMI 43.2
[2022-07-13 05:47] VITALS: PULSE 74; PULSE 78; O2SAT 94
--- NOTE | 2022-07-13 07:16 | EXP.DC.SUM ---
General Admission date:: 07/08/22 Discharge date: 07/13/22 HPI HPI HPI: This is a 47-year-old male with past medical history of COPD, atrial fibrillation, recent left-sided lacunar infarct, HFrEF, substance abuse namely methamphetamines, noncompliance, tobacco abuse, cirrhosis who presents emergency department today with complaints of bilateral lower extremity pain with increased erythema and edema. Patient was recently admitted here on 06/19/2022 for altered mental status requiring intubation for airway maintenance. At that time he underwent septic work-up and was noted to have Streptococcus dysgalactiae bacteremia and bilateral lower extremity wound cultures positive for staph and E. coli. He was treated with broad-spectrum antibiotics during that admission. He was extubated shortly after and was noted to have prolonged encephalopathy. CT scan at that time revealed lacunar infarct and patient was transferred to [place] for further neurological evaluation. Patient is known noncompliant medical patient with continued substance abuse. He does have a history of leaving AMA from the hospital. Unclear as to if patient has been on oral antibiotics since discharge from [facility]. Emergency department work-up significant for bilateral lower extremity edema with chronic venous stasis disease and open ulcerations of bilateral extremities. X-ray imaging does not reveal any osteo involvement. Laboratory evaluation significant for chronic transaminitis, stable macrocytic anemia, elevated anion gap of 15 and elevated D-dimer of 2.30. Chest x-ray notable for pulmonary vascular congestion and likely pneumonia. He was treated emergency department broadly with vancomycin, cefepime and Flagyl. Due to the above-mentioned complaints he will be admitted to the hospitalist service for further evaluation and management. On my exam today he does have severe lipsmacking, tangential thinking and inattention. It does appear that patient has been engaging in further substance abuse. Notable wheezing on exam with room oxygen saturations in the mid 90s. Bilateral lower extremity wraps in place. Given elevated D-dimer, continued drug abuse, will get CT chest PE scan to rule out emboli. He has chronic bilateral lower extremity ulcers that have undergone, per his report, approximately [address] Karimi. Hospital Course Hospital Course Hospital Course: 47-year-old male with recurrent admission for venous stasis ulcers and infection.? Status postdebridement with wound VAC in place.? Continued inpatient management pending cultures. Wound culture showed sensitivity to oral antibiotics. Meeting criteria for discharge home with outpatient follow-up for wound management. Unfortunately patient unable to be placed for alf and unable to get home health as he does not have a reliable address. Problems addressed as follows: Severe ulcerative cellulitis -Ortho consulted on admission. Patient taken for debridement on 07/10/2022. Wound VAC placed to aid in healing. Wound VAC order sent with pressure recommendations (120), continuous negative pressure, dressing changes every 72 hours. Recommend wet-to-dry dressing changes twice daily to right lower extremity. Orthopedics also recommends referral to plastics to assist with wound healing, I will assist in scheduling this appointment. Wound cultures returned with sensitivity.? Sensitive to oral Levaquin and amoxicillin. Transition to these medications at discharge to complete a total of 14 days of therapy (10 days oral at home). Attempted placement at nursing facility, patient substance abuse history complicates this and we are unable to find suitable placement. As he is on oral therapy he is suitable for discharge home. Case management and social work assisted with disposition and home health needs. Follow-up with orthopedics in 3 weeks. We will establish with primary care and [facility] is closer to where a[facility]
[2022-07-13 07:33] LABS: Basophils % 0.7 % (0.1-2.0); Eosinophils # 0.3 K/mm3 (0.0-0.4); Eosinophils % 6.1 % (0.1-12.0); Hematocrit 37.9 % (42.0-52.0); Hemoglobin 11.6 g/dL (14.1-18.0); Lymphocytes # 1.9 K/mm3 (0.7-4.5); Lymphocytes % 35.3 % (10-50); Mean Corpuscular HGB Conc 30.7 g/dL (31.8-35.4); Mean Corpuscular Hemoglobin 32.8 pg (27.0-31.2); Mean Corpuscular Volume 107.1 fl (80-94); Mean Platelet Volume 8.7 fl (7.4-10.4); Monocytes # 0.4 K/mm3 (0.1-1.0); Monocytes % 7.5 % (1.7-9.3); Neutrophils # 2.7 K/mm3 (1.8-7.8); Neutrophils % 50.4 % (37.0-80.0); Platelet Count 98 K/mm3 (142-424); Red Blood Count 3.54 M/mm3 (4.60-6.20); Red Cell Distribution Width 17.2 % (11.5-17.5); White Blood Count 5.3 K/mm3 (4.8-10.8)
[2022-07-13 08:00] VITALS: BP 141/84; PULSE 77; RESP 18; TEMP 36.7; O2SAT 99
[2022-07-13 08:35] LABS: Alanine Aminotransferase 39 U/L (12-78); Albumin Level 2.3 g/dl (3.5-5.0); Albumin/Globulin Ratio 0.5 (1.1-1.8); Alkaline Phosphatase 325 U/L (38-126); Anion Gap 5.3 mEq/L (5-15); Aspartate Amino Transferase 74 U/L (17-59); Bilirubin,Total 1.9 mg/dl (0.2-1.3); Blood Urea Nitrogen 16 mg/dl (9-20); Calcium 8.4 mg/dl (8.4-10.2); Carbon Dioxide 36 mmol/L (22.0-30.0); Chloride 102 mmol/L (98-107); Creatinine Clearance Estimated 144 mL/min (50-200); Estimated Glomerular Filt Rate 143 ml/min (>60); GFR (African American) 173 ML/MIN (>60); Globulin 4.6 g/dL (1.3-3.2); Glucose 113 mg/dl (74-100); Phosphorous 4.4 mg/dl (2.5-4.5); Potassium 4.3 mmoL/L (3.5-5.1); Sodium 139 mmol/L (136-145); Total Protein,Serum 6.9 g/dl (6.3-8.2)
[2022-07-13 10:00] VITALS: PULSE 65; PULSE 66
--- NOTE | 2022-07-13 10:55 | EXP.ORTH.PN ---
Subjective *Date: 07/13/22 *Time: 11:01 Interval history: Mr. Ragland is a 47 year old male patient who underwent debridement and irrigation of his bilateral venous stasis ulcers with application of left wound vacuum assisted closure on 07/10/[address] Story. Today the patient is postop day #3. This morning the patient is sitting up comfortably in a bedside chair and physical therapy is present at the bedside changing the left wound VAC. No history of any distal tingling/numbness. He denies any other symptoms or concerns at this time. Ortho Exam (Inpt) Vital signs and Labs for Last 24 Hours: Temp Pulse Resp BP Pulse Ox 98.1 F 65 18 141/84 H 99 07/13/22 08:00 07/13/22 10:00 07/13/22 08:00 07/13/22 08:00 07/13/22 08:00 Laboratory Results - last 24 hr 07/13/22 06:57: WBC 5.3, RBC 3.54 L, Hgb 11.6 L, Hct 37.9 L, MCV 107.1 H, MCH 32.8 H, MCHC 30.7 L, RDW 17.2, Plt Count 98 L, MPV 8.7, Neut % (Auto) 50.4, Lymph % (Auto) 35.3, Creek % (Auto) 7.5, Eos % (Auto) 6.1, Baso % (Auto) 0.7, Neut # (Auto) 2.7, Lymph # (Auto) 1.9, Creek # (Auto) 0.4, Eos # (Auto) 0.3, Baso # (Auto) 0.0 07/13/22 06:57: Sodium 139, Potassium 4.3, Chloride 102, Carbon Dioxide 36 H, Anion Gap 5.3, BUN 16 D, Creatinine 0.60 L, Estimated Creat Clear 144, Estimated GFR 143, Est GFR ( Amer) 173, Glucose 113 H D, Calcium 8.4, Phosphorus 4.4 D, Total Bilirubin 1.9 H, AST 74 H, ALT 39, Alkaline Phosphatase 325 H, Total Protein 6.9, Albumin 2.3 L, Globulin 4.6 H, Albumin/Globulin Ratio 0.5 L I & O for Labs for Last 24 Hours: Intake & Output 11/2707/11/22 07/12/22 07/13/22 23:59 23:59 23:59 23:59 Intake Total 2060 / 2060 1780 / 1780 3672 / 3672 480 / 480 Output Total 2900 / 2900 3315 / 3315 6925 / 6925 1100 / 1100 Balance -840 / -840 -1535 / -1535 -3253 / -3253 -620 / -620 Weight 282 lb 3.984 oz 295 lb 2 oz 291 lb 8 oz 292 lb 6 oz Microbiology Reports for the Last 24 Hours: Microbiology 07/10/22 08:31 Leg,Left - Other Gram Stain - Final 07/10/22 08:31 Leg,Left - Other Wound Culture - Preliminary Gram Positive Cocci 07/11/22 13:30 Anus CRE Surveillance Culture - Final 07/08/22 22:55 Leg,Left Gram Stain - Final 07/08/22 22:55 Leg,Left Wound Culture - Final Citrobacter freundii Stenotrophomonas maltophilia Enterococcus faecalis 07/08/22 22:55 Leg,Right Gram Stain - Final 07/08/22 22:55 Leg,Right Wound Culture - Final Citrobacter freundii Stenotrophomonas maltophilia Enterococcus faecalis Head: Present normocephalic and atraumatic Eyes: Present as per HPI ENT: Present normal exam Neck: Present normal inspection, full ROM and trachea midline; Absent lymphadenopathy Respiratory: Present normal respiratory effort, able to speak in complete sentences and symmetric chest movement; Absent accessory muscle use Cardiac: Present Reg Rate and Rhythm GI: Present soft; Absent tenderness Comment:: Upon examination of the bilateral lower extremities: Dressings present over the right valero are clean, dry, and intact. No evidence of drainage or bleeding noted. Out of the dressings, there are 2 venous stasis ulcers present over the anterior of the left valero. The medial wound measures 5 cm x 3 cm x 0.3 cm. The lateral wound measures 4 cm x 4 cm x 0.3 cm. There is a scant amount of serous drainage present. No tissue necrosis or purulent drainage present. A wound VAC was reapplied over the left valero and noted to have good seal. Thigh and calf are soft and nontender; Scott's sign is negative. No clinical evidence of DVT or compartment syndrome noted. Posterior tibial pulses 1+ bilaterally; sensation to light touch is grossly intact throughout. Patient is actively mobilizing the foot, ankle, and toes. Skin: Present intact, warm and dominic
--- NOTE | 2022-07-13 11:11 | HMH.PTWOUND ---
Rehab Inpt Wound Evaluation Rehab IP Wound Evaluation Start: 07/13/22 08:56 Freq: ONCE Status: Active Protocol: Document 07/13/22 11:06 SHAE (Rec: 07/13/22 11:10 SHAE [id number]) Rehab PT Wound Assessment Patient Status Premedicated Prior to Dressing Change No Subjective Subjective Pt somnulent through procedure /vac change - pt did c/o pain w/ dressing removal - Wound Left Lower Lateral Tam Wound Type Stasis Ulcer Wound Length (cm) 4.0 Wound Width (cm) 4.0 Wound Depth (cm) 0.3 Wound Bed Appearance Beefy Red Percentage Granulated (%) 100 Wound Margins Description Well Defined Wound Drainage Description Serosanguineous Drainage Amount Small Drainage Odor No Odor Dressing Status Changed Packing Type Woundvac Sponge Primary Dressing Film Dressing Dressing Change Date 07/13/22 Dressing Change Patient Tolerance Tolerated Poorly Left Lower Medial Tam Wound Type Stasis Ulcer Is This a Chronic Wound Yes Wound Length (cm) 5.0 Wound Width (cm) 3.0 Wound Depth (cm) 0.3 Wound Bed Appearance Beefy Red Percentage Granulated (%) 100 Wound Margins Description Well Defined Surrounding Tissue Temperature Cool Wound Drainage Description Serosanguineous Drainage Amount Small Drainage Odor No Odor Dressing Status Changed Packing Type Woundvac Sponge Primary Dressing Film Dressing Wound Debridement Amount of Tissue None Removed Dressing Change Date 07/13/22 Dressing Change Patient Tolerance Tolerated Poorly Plan/Recommendation Comment Wound vac changed - pt to dc to home today w/ HH nsg wound changes - wound has film over skin bridge between wounds on LLE to protect skinn - vac setting 125 mm HG - good seal - pt to dc from [facility] wound care Eval Complexity Eval Charge Codes 92832 - Moderate Complexity G-codes PT Current Status Other PT/OT Status PT Current Status Modifier CN-At least 100% impaired, limited or restricted PT Goal Status Other PT/OT Status PT Goal Status Modifer CN-At least 100% impaired, limited or restricted
[2022-07-13 11:51] VITALS: BP 122/58; PULSE 69; RESP 18; TEMP 36.7; O2SAT 97
--- NOTE | 2022-07-13 13:35 | HMH.PHAINT1 ---
Pharmacy Intervention Comments: Discharge counseling completed at bedside with patient. Discussed new medications (amoxicillin and levofloxacin) and continued medications. Overviewed indication and possible side effects/mitigation strategies for each new medication and emphasized importance of completed course of antibiotics. Patient verbalized his understanding and has no questions or concerns at this time.
--- NOTE | 2022-07-14 10:37 | CARE MANAGER ---
Patient is set up for urgent transportation from [address] [place] [address] Road to [facility] on 07/15/22, he will need to be ready by 2:30pm. Spoke with Dash at [facility], reference number is [id number].
--- NOTE | 2022-07-14 13:19 | CARE MANAGER ---
Attempted post-discharge phone interview, phone number in system is not working.
== END 2022-07-13 16:30 | disposition home or self-care (01) | DRG 981 ==
LOC: ER 17:51 → 2ND 19:17
PROVIDERS: Nurse Practitioner Acute Care; Orthopaedic Surgery; Admitting Provider Student in an Organized Health Care Education/Training Program; Emergency Provider Emergency Medicine; PCP Family Medicine; Visit Provider Student in an Organized Health Care Education/Training Program
PROC: 0JDN0ZZ Extraction of Right Lower Leg Subcutaneous Tissue and Fascia, Open Approach (ICD-10-PCS; principal; 2022-07-10 08:00)
DX: I87.2 Venous insufficiency (chronic) (peripheral) (principal); J18.9 Pneumonia, unspecified organism; L03.115 Cellulitis of right lower limb; I50.22 Chronic systolic (congestive) heart failure; J44.0 Chronic obstructive pulmonary disease with (acute) lower respiratory infection; J44.1 Chronic obstructive pulmonary disease with (acute) exacerbation; L03.116 Cellulitis of left lower limb; L97.229 Non-pressure chronic ulcer of left calf with unspecified severity; L97.219 Non-pressure chronic ulcer of right calf with unspecified severity; I48.91 Unspecified atrial fibrillation; F19.10 Other psychoactive substance abuse, uncomplicated; K74.60 Unspecified cirrhosis of liver; I11.0 Hypertensive heart disease with heart failure; I08.1 Rheumatic disorders of both mitral and tricuspid valves; Z87.891 Personal history of nicotine dependence; Z86.73 Personal history of transient ischemic attack (TIA), and cerebral infarction without residual deficits; F15.10 Other stimulant abuse, uncomplicated; F11.10 Opioid abuse, uncomplicated; D53.9 Nutritional anemia, unspecified; Y95 Nosocomial condition; Z91.199 Patient's noncompliance with other medical treatment and regimen due to unspecified reason
CPT/HCPCS: 11042 ×2; 36415; 71045; 71275; 73590; 73718; 74176; 80048; 80053; 80202; 80305; 81001; 82140; 83690; 83735; 83880; 84100; 84484; 85025; 85378; 85651; 87040; 87070; 87075; 87077; 87081; 87186; 87205; 93005; 94640; 94761; 97161; 99285; C9803; J0692; J1956; J2185; J3370; J3475; Q9967; U0003; U0005

== ENCOUNTER 2022-08-30 21:45 | Observation (INO) | payer MEDICARE, OTHER, SELFPAY ==
[2022-08-30 21:48] VITALS: BP 165/94; PULSE 107; RESP 20; TEMP 37.1; O2SAT 98; BMI 39.1
[2022-08-30 21:57] VITALS: BP 165/94; PULSE 109; RESP 21; O2SAT 98
[2022-08-30 22:08] VITALS: BMI 38.4
[2022-08-30 22:18] LABS: Basophils % 0.4 % (0.1-2.0); Chloride 106 mmol/L (98-107); Eosinophils # 0.2 K/mm3 (0.0-0.4); Eosinophils % 4.1 % (0.1-12.0); Hematocrit 33.8 % (42.0-52.0); Hemoglobin 10.9 g/dL (14.1-18.0); Lymphocytes # 0.8 K/mm3 (0.7-4.5); Lymphocytes % 14.6 % (10-50); Mean Corpuscular HGB Conc 32.2 g/dL (31.8-35.4); Mean Corpuscular Hemoglobin 31.7 pg (27.0-31.2); Mean Corpuscular Volume 98.4 fl (80-94); Monocytes # 0.3 K/mm3 (0.1-1.0); Monocytes % 5.1 % (1.7-9.3); Neutrophils # 4.3 K/mm3 (1.8-7.8); Neutrophils % 75.8 % (37.0-80.0); Platelet Count 92 K/mm3 (142-424); Potassium 3.2 mmoL/L (3.5-5.1); Red Blood Count 3.43 M/mm3 (4.60-6.20); Red Cell Distribution Width 17.3 % (11.5-17.5); Sodium 138 mmol/L (136-145); White Blood Count 5.6 K/mm3 (4.8-10.8)
[2022-08-30 22:21] LABS: Alanine Aminotransferase 31 U/L (12-78); Albumin Level 2.8 g/dl (3.5-5.0); Albumin/Globulin Ratio 0.6 (1.1-1.8); Alkaline Phosphatase 283 U/L (38-126); Anion Gap 6.2 mEq/L (5-15); Aspartate Amino Transferase 65 U/L (17-59); Bilirubin,Total 1.8 mg/dl (0.2-1.3); Blood Urea Nitrogen 6 mg/dl (9-20); Carbon Dioxide 29 mmol/L (22.0-30.0); Creatinine Clearance Estimated 298 mL/min (50-200); Estimated Glomerular Filt Rate 177 ml/min (>60); GFR (African American) 214 ML/MIN (>60); Globulin 4.7 g/dL (1.3-3.2); Total Protein,Serum 7.5 g/dl (6.3-8.2)
[2022-08-30 22:22] LABS: Calcium 7.6 mg/dl (8.4-10.2); Glucose 160 mg/dl (74-100)
[2022-08-30 22:27] LABS: C-Reactive Protein 9.9 mg/L (0-4)
[2022-08-30 22:28] LABS: Lactic Acid 2.8 mmol/L (0.7-2.1)
[2022-08-30 22:34] VITALS: BP 161/86; PULSE 103; RESP 21; O2SAT 97
[2022-08-30 22:34] LABS: Benzodiazepines Screen,Urine Negative ng/ml (<200)
[2022-08-30 22:35] LABS: Amphetamine/Metha Screen,Urine Positive ng/ml (<1000)
[2022-08-30 22:36] LABS: Barbiturates Screen,Urine Negative ng/ml (<200); Cannabinoid Screen,Urine Negative ng/ml (<50)
[2022-08-30 22:37] LABS: Cocaine Screen,Urine Negative ng/ml (<300)
[2022-08-30 22:38] LABS: Methadone Screen,Urine Negative ng/ml (<300); Opiate Screen,Urine Negative ng/ml (<300)
[2022-08-30 22:39] LABS: Phencyclidine Screen,Urine Negative ng/ml (<25)
[2022-08-30 22:48] LABS: Erythrocyte Sedimentation Rate 49 mm/hr (0-15)
[2022-08-30 22:58] LABS: Procalcitonin 0.104 ng/mL (0.0-2.0)
--- NOTE | 2022-08-30 23:04 | HMH.EDSKAF ---
Discharge Plan Disposition Patient Disposition: Admitted As Inpatient Chief Complaint: Skin/Abscess/Foreign Body Prescriptions Prescriptions: No Action gabapentin 400 mg capsule 400 mg PO BID PRN (Reason: pain) Qty: 30 2RF ipratropium-albuterol 0.5 mg-3 mg(2.5 mg base)/3 mL solution for nebulization 3 ml inhalation Q4H PRN (Reason: wheezing) Qty: 90 0RF furosemide 40 mg tablet 40 mg PO DAILY potassium chloride 10 mEq tablet extended release 10 meq PO DAILY albuterol sulfate [ProAir HFA] 90 mcg/actuation HFA aerosol inhaler 2 inh INHALATION Q4HP PRN (Reason: Shortness Of Breath) spironolactone 50 mg tablet 50 mg PO DAILY metoprolol succinate [Toprol XL] 50 mg tablet extended release 24 hr 50 mg PO DAILY lactulose 20 gram/30 mL solution 30 g PO TID hydrocodone-acetaminophen 7.5-325 mg tablet 1 tab PO TIDP PRN (Reason: Pain) 3 Days Qty: 9 0RF clindamycin HCl 300 mg capsule 300 mg PO Q8H cephalexin 500 mg capsule 500 mg PO QID Referrals Follow up/Referrals: Carlos Leo MD [Primary Care Provider] - See instructions Clinical Impressions Clinical Impression: Cellulitis, Severe sepsis with acute organ dysfunction Instructions Patient Instructions: DI for Skin Abscess Discharge ED Provider: Louie Resendez Skin/Abscess/FB HPI General Chief complaint: Skin/Abscess/Foreign Body Stated complaint: lEFT LEG RED AND SWOLLEN MOVING UP Time Seen by Provider: 08/30/22 23:04 Mode of Arrival: Ambulatory Source of Information: Patient and Medical Record Limitations: No Limitations Description of Symptoms (Recalled from ER Triage Doc. by RN): pt c/o of cellulitis that has spread since he saw dr leo this afternoon the pt c/o pain 03/23 the pt did take one round of PO antibiotics then came in because the spot got bigger and the dr told him to come here for iv antibiotics History of Present Illness HPI narrative: cellulitis and saw pcp and has karo Watkins MD complaint: abscess/boil Onset (ago): day(s) Tetanus up to date: unsure Location: LLE Severity: moderate Associated symptoms: denies other symptoms Related Data Home Medications Medication Instructions Recorded Confirmed albuterol sulfate 90 mcg/actuation 2 inh inhalation Q4HP PRN 07/09/22 08/30/22 aerosol inhaler (ProAir HFA) Shortness Of Breath furosemide 40 mg tablet 40 mg PO DAILY Fluid 07/09/22 08/30/22 lactulose 20 gram/30 mL oral 30 g PO TID CONSTIPATION 07/09/22 08/30/22 solution metoprolol succinate 50 mg 50 mg PO DAILY Hypertension 07/09/22 08/30/22 tablet,extended release 24 hr (Toprol XL) potassium chloride 10 mEq 10 meq PO DAILY Supplement 07/09/22 08/30/22 tablet,extended release spironolactone 50 mg tablet 50 mg PO DAILY Fluid 07/09/22 08/30/22 cephalexin 500 mg capsule 500 mg PO QID Infection 08/30/22 08/30/22 clindamycin HCl 300 mg capsule 300 mg PO Q8H Infection 08/30/22 08/30/22 Previous Rx's Medication Instructions Recorded ipratropium 0.5 mg-albuterol 3 mg 3 ml inhalation Q4H PRN wheezing 07/02/22 (2.5 mg base)/3 mL nebulization #90 mL soln hydrocodone 7.5 mg-acetaminophen 1 tab PO TIDP PRN Pain 3 days #9 07/13/22 325 mg tablet tabs gabapentin 400 mg capsule 400 mg PO BID PRN pain #30 caps 08/30/22 Allergies Allergy/AdvReac Type Severity Reaction Status Date / Time codeine Allergy Severe Anaphylaxis Verified 08/30/22 15:06 guaifenesin [From Mucinex] Allergy Severe SWELLS Verified 08/30/22 15:06 ketorolac [From Toradol] Allergy Severe Difficulty Verified 08/30/22 15:06 Swallowing sulfamethoxazole AdvReac Intermediate Rash Verified 08/30/22 15:06 [From Bactrim] trimethoprim [From Bactrim] AdvReac Intermediate Rash Verified 08/30/22 15:06 PFSH PFSH Disclaimer: The information contained in this section may have been updated after the patient was seen, as this information can be updated by other users. Medical History (Reviewed 08/02/22 @ 1
[2022-08-30 23:27] LABS: Coronavirus 19, PCR Not Detected (NotDetected); Influenza A, PCR Not Detected (NotDetected); Influenza B, PCR Not Detected (NotDetected)
--- NOTE | 2022-08-30 23:57 | EXP.HP ---
History of Present Illness *Admission Date: 08/30/22 *Reason for visit:: Left Thigh, Redness, Pain *History of present illness: Mr. Ragland is a 47-year-old male with a past medical history of COPD, Atrial Fibrillation, not on chronic anticoagulation, Liver Cirrhosis with history of TIPS, history of Left Sided Lacunar Infarct, HFrEF, history of methamphetamine abuse, Tobacco Abuse and history of bilateral venous stasis ulcerations that required wound vac with history of staph and e. coli positive wound cultures and history of streptococcus dysgalactiae bacteremia. He reports to [facility] due to a reported three day history of left anterior thigh pain associated with redness, pain and swelling. He reports that he went to see his PCP today for the complaint and had the area marked, there is significant erythema beyond the borders. He denies fevers or chills. Urine drug screen is positive for Methamphetamines, he denies any recent use and denies any history of intravenous use. He reports he was given antibiotics today at the clinic with no improvement. Records were reviewed and he was given a dose of Rocephin in the clinic and was given Clindamycin and Cephalexin prescriptions. He had a recent hospitalization in 06/2022 in which he was treated for a similar presentation, at that time he underwent a MRI of the BLE's that showed no signs of Osteomyelitis, he was seen by Orthopaedics who recommended a wound vac and follow-up with Plastics at . He denies any follow-up with . The patient will be admitted with initial impression: Left Lower extremity Cellulitis. Due to his history of organisms he will be placed on Broad spectrum antibiotics to cover for Staph, Strep and E.coli. Blood cultures were drawn in the ER. Further imaging will be ordered of US of the RLE, CT imaging and plain films. If Blood cultures are positive will get an echocardiogram. The patient does have chronic appearing wounds on the bilateral ankle regions and wet to dry dressings will be ordered. The plan of care was discussed with the patient in length and detail on admission in the ER. The patient verbalized understanding and agreement with the plan of care. [facility] Disclaimer: The information contained in this section may have been updated after the patient was seen, as this information can be updated by other users. Medical History (Updated 08/31/22 @ 00:42 by Norman Sue DNP) Atrial fibrillation Chronic pain Cirrhosis COPD (chronic obstructive pulmonary disease) Hypertension Surgical History (Updated 08/31/22 @ 00:26 by Norman Sue DNP) S/P TIPS (transjugular intrahepatic portosystemic shunt) Family History Other Heart disease Social History Smoking Status: Former smoker second hand exposure: Yes alcohol intake: former substance use type: crack/cocaine and methamphetamine current occupational status: disabled Travel in the last 8 weeks: None household members: friend(s) housing: house current occupation: unknown current occupational exposures/hazards: No caffeine: Yes Review of Systems Review of Systems Review of systems:: pertinent systems reviewed and negative unless documented below Constitutional Constitutional: Reports system reviewed and no additional complaints, except as documented Eyes Eyes: Reports system reviewed and no additional complaints, except as documented ENT Ears, Nose, Mouth, and Throat: Reports system reviewed and no additional complaints, except as documented *Cardiovascular Cardiovascular: Reports leg edema *Respiratory Respiratory: Reports system reviewed and no additional complaints, except as documented *Gastrointestinal Gastrointestinal: Reports system reviewed and no additional complaints, except as documented *Genitourinary Genitourinary: Reports system reviewed
[2022-08-31] VITALS (7 sets, daily range): BP systolic 109–181; BP diastolic 92–118; PULSE 76–104; RESP 17–22; TEMP 36.6–37.4; O2SAT 92–99; BMI 38.1; BMI 38.5
--- NOTE | 2022-08-31 | CT_ITS ---
PROCEDURE INFORMATION: Exam: CT Left Lower Extremity With Contrast; Thigh Exam date and time: 08/31/2022 12:05 AM Age: 47 years old Clinical indication: Other: Erythema; Additional info: Redness, erythema that has went beyond marking TECHNIQUE: Imaging protocol: CT of the Left lower extremity with intravenous contrast was performed. Exam focused on the thigh. Radiation optimization: All CT scans at this facility use at least one of these dose optimization techniques: automated exposure control; mA and/or kV adjustment per patient size (includes targeted exams where dose is matched to clinical indication); or iterative reconstruction. Contrast material: ISOVUE; Contrast volume: 75 ml; Contrast route: IV; COMPARISON: CT ANGIO LE BI 11/17/2021 11:19 AM FINDINGS: Bones/joints: Mild left knee tricompartmental degenerative osteoarthritis. No acute fracture or dislocation. No evidence of osteomyelitis. Small knee joint effusion. Soft tissues: Increased attenuation of the prepatellar subcutaneous tissues, likely edema or cellulitis. Mild fat stranding of the left mid and distal thigh, as well as the visualized lower leg. Lymph nodes: Multiple mildly enlarged lymph nodes within the left inguinal region, the largest measuring up to approximately 13 mm in short axis diameter, likely reactive. Bowel: Colonic diverticulosis. IMPRESSION: Minimal edema/cellulitis of the left mid and distal thigh, as well as the visualized lower leg. No abscess.
--- NOTE | 2022-08-31 00:02 | XR_ITS ---
PROCEDURE INFORMATION: Exam: XR Left Femur Exam date and time: 08/31/2022 12:06 AM Age: 47 years old Clinical indication: Swelling, leg or foot; Additional info: Redness, pain, swelling left thigh TECHNIQUE: Imaging protocol: Radiologic exam of the Left femur. Views: 2 views. COMPARISON: CT FEMUR LT W CON 08/31/2022 12:05 AM FINDINGS: Bones/joints: No acute fracture or dislocation. No radiographic evidence of osteomyelitis. Soft tissues: Surgical clips within the visualized scrotal region, likely secondary to prior vasectomy. Mildly increased density of the subcutaneous tissues of the mid and distal thigh, possibly edema/cellulitis. No radiopaque foreign body. IMPRESSION: 1. No acute fracture or dislocation. 2. Possible edema/cellulitis of the thigh subcutaneous tissues.
--- NOTE | 2022-08-31 00:05 | PC.NURSE ---
called report to Cecelia GUTIERREZ
--- NOTE | 2022-08-31 00:13 | PC.NURSE ---
spoke to Norman about the BP she wants pt to get pain control and reassessment on the floor
[2022-08-31 00:23] LABS: Magnesium 1.4 mg/dl (1.6-2.3)
[2022-08-31 01:24] LABS: Reflex Lactic Add Lactic Reflex
[2022-08-31 01:45] LABS: Lactic Acid Follow Up (RFLX 1) 0.8 mmol/L (0.7-2.1)
--- NOTE | 2022-08-31 01:54 | PC.WOUNDNOTE ---
LLE 6x1, 3x3 area LLE back of LLE
--- NOTE | 2022-08-31 01:55 | PC.WOUNDNOTE ---
RLE 2x2 RLE
--- NOTE | 2022-08-31 02:08 | PC.NURSE ---
Pt is a new admission. Admitted for Cellulitis triggered Sepsis. Pt A/O X 4, Bilat wheezes in lung herron, resp even and non labored at this time. Pt has 2plus non ptiing edema in lower ext, skin if tight. Left thigh is red and swollen. Pt started on antibiotics and given pain medications. IV in right AC is patent. Pt is on room air. Pt educated on plan of care and medications. Encouraged to report any needs to staff. Bed locked in low position, side rails up x 2, call light in place.
[2022-08-31 06:50] LABS: MANUAL DIFFERENTIAL MANUAL DIFFERENTIAL (MANUAL DIFF)
[2022-08-31 07:03] LABS: Basophils % 0.4 % (0.1-2.0); Eosinophils # 0.3 K/mm3 (0.0-0.4); Eosinophils % 5.1 % (0.1-12.0); Hematocrit 33.1 % (42.0-52.0); Hemoglobin 10.7 g/dL (14.1-18.0); Lymphocytes # 0.7 K/mm3 (0.7-4.5); Lymphocytes % 13.2 % (10-50); Mean Corpuscular HGB Conc 32.4 g/dL (31.8-35.4); Mean Corpuscular Hemoglobin 32.3 pg (27.0-31.2); Mean Corpuscular Volume 99.7 fl (80-94); Mean Platelet Volume 8.4 fl (7.4-10.4); Monocytes # 0.3 K/mm3 (0.1-1.0); Neutrophils # 3.9 K/mm3 (1.8-7.8); Neutrophils % 75.2 % (37.0-80.0); Platelet Count 89 K/mm3 (142-424); Red Blood Count 3.32 M/mm3 (4.60-6.20); Red Cell Distribution Width 17.2 % (11.5-17.5); White Blood Count 5.2 K/mm3 (4.8-10.8)
[2022-08-31 07:05] LABS: Potassium 3.3 mmoL/L (3.5-5.1)
[2022-08-31 07:06] LABS: Alanine Aminotransferase 27 U/L (12-78); Albumin Level 2.6 g/dl (3.5-5.0); Albumin/Globulin Ratio 0.6 (1.1-1.8); Alkaline Phosphatase 255 U/L (38-126); Anion Gap 5.3 mEq/L (5-15); Aspartate Amino Transferase 52 U/L (17-59); Bilirubin,Total 2.2 mg/dl (0.2-1.3); Blood Urea Nitrogen 6 mg/dl (9-20); Calcium 7.3 mg/dl (8.4-10.2); Carbon Dioxide 28 mmol/L (22.0-30.0); Chloride 109 mmol/L (98-107); Creatinine Clearance Estimated 248 mL/min (50-200); Estimated Glomerular Filt Rate 143 ml/min (>60); GFR (African American) 173 ML/MIN (>60); Globulin 4.4 g/dL (1.3-3.2); Glucose 102 mg/dl (74-100); Sodium 139 mmol/L (136-145)
[2022-08-31 07:52] LABS: Eosinophils % 2 % (0-3); Lymphocytes % 12 % (10-50); Monocytes % 3 % (2-9); Neutrophils % 83 % (42-76); Total Cells Counted 100
[2022-08-31 07:53] LABS: Platelet Estimate Moderate Decrease; RBC Morphology Normal
--- NOTE | 2022-08-31 07:53 | EXP.PHA.CONS ---
Pharmacy Consult Date: 08/31/22 Time: 07:53 Referring provider: DR. MONTES Reason for Consult:: VANCOMYCIN DOSING Allergies Allergy/AdvReac Type Severity Reaction Status Date / Time codeine Allergy Severe Anaphylaxis Verified 08/30/22 15:06 guaifenesin [From Mucinex] Allergy Severe SWELLS Verified 08/30/22 15:06 ketorolac [From Toradol] Allergy Severe Difficulty Verified 08/30/22 15:06 Swallowing sulfamethoxazole AdvReac Intermediate Rash Verified 08/30/22 15:06 [From Bactrim] trimethoprim [From Bactrim] AdvReac Intermediate Rash Verified 08/30/22 15:06 Home Medications Medication Instructions Recorded Confirmed Type ipratropium 0.5 mg-albuterol 3 mg 3 ml inhalation Q4H PRN wheezing 07/02/22 08/30/22 Rx (2.5 mg base)/3 mL nebulization #90 mL soln albuterol sulfate 90 mcg/actuation 2 inh inhalation Q4HP PRN 07/09/22 08/30/22 History aerosol inhaler (ProAir HFA) Shortness Of Breath furosemide 40 mg tablet 40 mg PO DAILY Fluid 07/09/22 08/30/22 History lactulose 20 gram/30 mL oral 30 g PO TID CONSTIPATION 07/09/22 08/30/22 History solution metoprolol succinate 50 mg 50 mg PO DAILY Hypertension 07/09/22 08/30/22 History tablet,extended release 24 hr (Toprol XL) potassium chloride 10 mEq 10 meq PO DAILY Supplement 07/09/22 08/30/22 History tablet,extended release spironolactone 50 mg tablet 50 mg PO DAILY Fluid 07/09/22 08/30/22 History hydrocodone 7.5 mg-acetaminophen 1 tab PO TIDP PRN Pain 3 days #9 07/13/22 08/30/22 Rx 325 mg tablet tabs cephalexin 500 mg capsule 500 mg PO QID Infection 08/30/22 08/30/22 History clindamycin HCl 300 mg capsule 300 mg PO Q8H Infection 08/30/22 08/30/22 History gabapentin 400 mg capsule 400 mg PO BID PRN pain #30 caps 08/30/22 08/30/22 Rx New Prescriptions to Start Prescriptions: Height: 1.75 m Weight: 117.8 kg Laboratory Results:: Laboratory Results - last 24 hr 08/30/22 22:03: WBC 5.6, RBC 3.43 L, Hgb 10.9 L, Hct 33.8 L, MCV 98.4 H, MCH 31.7 H, MCHC 32.2, RDW 17.3, Plt Count 92 L, MPV 8.0, Neut % (Auto) 75.8, Lymph % (Auto) 14.6, [place] % (Auto) 5.1, Eos % (Auto) 4.1, Baso % (Auto) 0.4, Neut # (Auto) 4.3, Lymph # (Auto) 0.8, [place] # (Auto) 0.3, Eos # (Auto) 0.2, Baso # (Auto) 0.0, ESR 49 H 08/30/22 22:03: Sodium 138, Potassium 3.2 L, Chloride 106, Carbon Dioxide 29, Anion Gap 6.2, BUN 6 L, Creatinine 0.50 L, Estimated Creat Clear 298, Estimated GFR 177, Est GFR ( Amer) 214, Glucose 160 H, Calcium 7.6 L, Total Bilirubin 1.8 H, AST 65 H, ALT 31, Alkaline Phosphatase 283 H, C-Reactive Protein 9.9 H, Total Protein 7.5, Albumin 2.8 L, Globulin 4.7 H, Albumin/Globulin Ratio 0.6 L, Procalcitonin 0.104 08/30/22 22:03: Lactate 2.8 H 08/30/22 22:16: Urine Opiates Screen Negative, Urine Methadone Screen Negative, Ur Barbituates Screen Negative, Ur Phencyclidine Scrn Negative, Ur Amphetamines Screen Positive H, U Benzodiazepines Scrn Negative, Urine Cocaine Screen Negative, U Marijuana (THC) Screen Negative 08/30/22 23:22: SARS-CoV-2 (PCR) Not detected, Influenza A Untype (PCR) Not detected, Influenza Type B (PCR) Not detected 08/31/22 00:00: Magnesium 1.4 L 08/31/22 01:33: Lactate 0.8 08/31/22 06:34: WBC 5.2, RBC 3.32 L, Hgb 10.7 L, Hct 33.1 L, MCV 99.7 H, MCH 32.3 H, MCHC 32.4, RDW 17.2, Plt Count 89 L, MPV 8.4, Neut % (Auto) 75.2, Lymph % (Auto) 13.2, [place] % (Auto) 6.0, Eos % (Auto) 5.1, Baso % (Auto) 0.4, Neut # (Auto) 3.9, Lymph # (Auto) 0.7, [place] # (Auto) 0.3, Eos # (Auto) 0.3, Baso # (Auto) 0.0 08/31/22 06:34: Sodium 139, Potassium 3.3 L, Chloride 109 H, Carbon Dioxide 28, Anion Gap 5.3, BUN 6 L, Creatinine 0.60 L, Estimated Creat Clear 248, Estimated GFR 143, Est GFR ( Amer) 173, Glucose 102 H D, Calcium 7.3 L, Total Bilirubin 2.2 H, AST 52, ALT 27, Alkaline Phosphatase 255 H, Total Protein 7.0, Albumin 2.6 L, Globulin 4.4 H, Albumin/Globulin Ratio 0.6 L Medical History: Medical History (Updated 08/31/22 @ 00:42 by Norman Sue DNP) Atrial fibrillation
--- NOTE | 2022-08-31 11:32 | HMH.PHAINT1 ---
Pharmacy Intervention Comments: Home medication reconciliation completed on patient using external fill history and list from recent office visit. -Coretta Davenport, PharmD Candidate 2022
--- NOTE | 2022-08-31 12:59 | EXP.PN ---
Subjective *Date: 08/31/22 *Time: 12:59 Interval history: Date of service August 31, 2022 The patient reports no acute events since admission. Nursing staff report that he remains afebrile with stable vital signs and is saturating appropriately on room air. I am accompanied by several members of the multidisciplinary rounds team including his nurse, pharmacy and trimming caser. We have reviewed and discussed his morning laboratory studies including a normal white blood cell count and potassium 3.3. His platelets are chronically low secondary to his splenomegaly with identified cirrhosis. His procalcitonin is negative. Orthopedics is due to see the patient. Exam Data for Last 24 hours Vital signs and Labs for Last 24 Hours: Temp Pulse Resp BP Pulse Ox 98.4 F 94 H 18 144/92 H 95 08/31/22 08:00 08/31/22 08:00 08/31/22 08:00 08/31/22 08:00 08/31/22 08:00 Laboratory Results - last 24 hr 08/30/22 22:03: WBC 5.6, RBC 3.43 L, Hgb 10.9 L, Hct 33.8 L, MCV 98.4 H, MCH 31.7 H, MCHC 32.2, RDW 17.3, Plt Count 92 L, MPV 8.0, Neut % (Auto) 75.8, Lymph % (Auto) 14.6, [place] % (Auto) 5.1, Eos % (Auto) 4.1, Baso % (Auto) 0.4, Neut # (Auto) 4.3, Lymph # (Auto) 0.8, [place] # (Auto) 0.3, Eos # (Auto) 0.2, Baso # (Auto) 0.0, ESR 49 H 08/30/22 22:03: Sodium 138, Potassium 3.2 L, Chloride 106, Carbon Dioxide 29, Anion Gap 6.2, BUN 6 L, Creatinine 0.50 L, Estimated Creat Clear 298, Estimated GFR 177, Est GFR ( Amer) 214, Glucose 160 H, Calcium 7.6 L, Total Bilirubin 1.8 H, AST 65 H, ALT 31, Alkaline Phosphatase 283 H, C-Reactive Protein 9.9 H, Total Protein 7.5, Albumin 2.8 L, Globulin 4.7 H, Albumin/Globulin Ratio 0.6 L, Procalcitonin 0.104 08/30/22 22:03: Lactate 2.8 H 08/30/22 22:16: Urine Opiates Screen Negative, Urine Methadone Screen Negative, Ur Barbituates Screen Negative, Ur Phencyclidine Scrn Negative, Ur Amphetamines Screen Positive H, U Benzodiazepines Scrn Negative, Urine Cocaine Screen Negative, U Marijuana (THC) Screen Negative 08/30/22 23:22: SARS-CoV-2 (PCR) Not detected, Influenza A Untype (PCR) Not detected, Influenza Type B (PCR) Not detected 08/31/22 00:00: Magnesium 1.4 L 08/31/22 01:33: Lactate 0.8 08/31/22 06:34: WBC 5.2, RBC 3.32 L, Hgb 10.7 L, Hct 33.1 L, MCV 99.7 H, MCH 32.3 H, MCHC 32.4, RDW 17.2, Plt Count 89 L, MPV 8.4, Neut % (Auto) 75.2, Lymph % (Auto) 13.2, [place] % (Auto) 6.0, Eos % (Auto) 5.1, Baso % (Auto) 0.4, Neut # (Auto) 3.9, Lymph # (Auto) 0.7, [place] # (Auto) 0.3, Eos # (Auto) 0.3, Baso # (Auto) 0.0, Total Counted 100, Neutrophils % (Manual) 83 H, Lymphocytes % (Manual) 12, Monocytes % (Manual) 3, Eosinophils % (Manual) 2, Platelet Estimate Moderate decrease, RBC Morphology Normal 08/31/22 06:34: Sodium 139, Potassium 3.3 L, Chloride 109 H, Carbon Dioxide 28, Anion Gap 5.3, BUN 6 L, Creatinine 0.60 L, Estimated Creat Clear 248, Estimated GFR 143, Est GFR ( Amer) 173, Glucose 102 H D, Calcium 7.3 L, Total Bilirubin 2.2 H, AST 52, ALT 27, Alkaline Phosphatase 255 H, Total Protein 7.0, Albumin 2.6 L, Globulin 4.4 H, Albumin/Globulin Ratio 0.6 L I & O for Last 24 hours: Intake & Output 08/28/22 08/29/22 08/30/22 08/31/22 23:59 23:59 23:59 23:59 Intake Total 480 / 480 Output Total 1250 / 1250 Balance -770 / -770 Weight 117.934 kg 117.8 kg Constitutional Constitutional: no acute distress, chronically ill appearing, disheveled and cooperative *Routine HEENT Exam Head: Present normocephalic Eye: Present EOMI and PERRL ENT: Present mucous membranes moist *Routine Neck Exam Neck: Present supple; Absent lymphadenopathy *Routine Respiratory Exam Respiratory: Present rhonchi, normal respiratory effort and symmetric chest movement *Routine Cardiovascular Exam Cardiovascular: Present RRR *Routine Abdominal Exam Abdominal: Present soft and normoactive bowel sounds; Absent tenderness *Routine Extremities Exam Comments: Left thigh area with erythema and increased edema. *Routine Skin Exam Skin: Pres
[2022-08-31 13:28] LABS: Ammonia 120 umol/L (9-30)
--- NOTE | 2022-08-31 14:47 | MR_ITS ---
PROCEDURE INFORMATION: Exam: MR Left Lower Extremity Without and With Contrast, Femur. Exam date and time: 08/31/2022 5:02 PM Age: 47 years old Clinical indication: Swelling, leg or foot; Additional info: Left thigh pain, swelling, erythema TECHNIQUE: Imaging protocol: Magnetic resonance imaging of the Left lower extremity without and with contrast. Exam focused on the femur. Contrast material: PROHANCE; Contrast volume: 24 ml; Contrast route: IV; COMPARISON: CT FEMUR LT W CON 08/31/2022 12:05 AM FINDINGS: Bones/joints: No loculated fluid collections are seen. Osseous alignment is normal. No abnormal marrow edema or enhancement seen to suggest osteomyelitis. Muscles: No significant muscular or intermuscular fascial edema seen. Soft tissues: There is diffuse subcutaneous soft tissue edema of the left lower extremity. Lymph nodes: Moderate left inguinal lymphadenopathy is noted. Vasculature: Evaluation of vascular structures is limited due to motion artifact. No gross vascular abnormality seen. IMPRESSION: Limited study due to patient motion. Diffuse soft tissue swelling of the left thigh and moderate left inguinal lymphadenopathy noted, suggesting cellulitis. No discrete abscess or estimates of osteomyelitis
--- NOTE | 2022-08-31 15:06 | EXP.ORTH.CON ---
Documented by User: FABIANO Hampton 08/31/22 15:46 History of Present Illness *Admission Date: 08/30/22 *Reason for visit:: Left thigh pain *History of present illness: Mr. Ragland is a 47-year-old male patient admitted to the acute inpatient service after presenting to the [facility] emergency department with a 3-day history of left anterior thigh pain with associated redness and swelling. He denies any history of fevers, chills, or rigors. He has been most recently evaluated by our orthopedic service in June 2022 secondary to his bilateral lower extremity chronic venous stasis ulcers. He underwent debridement and irrigation of his bilateral lower extremity venous stasis ulcers and it was recommended at that time that he follow-up with the [facility] plastics service. Today the patient reports that he has not been subsequently seen for any follow-up since his most recent admission. His past medical history is significant for methamphetamine abuse, COPD, atrial fibrillation not on chronic anticoagulation, liver cirrhosis, left-sided lacunar infarct, tobacco abuse, and HFrEF. He denies any other symptoms or concerns at this time. [facility] Disclaimer: The information contained in this section may have been updated after the patient was seen, as this information can be updated by other users. Medical History Atrial fibrillation Chronic pain Cirrhosis COPD (chronic obstructive pulmonary disease) Hypertension Surgical History S/P TIPS (transjugular intrahepatic portosystemic shunt) Family History Other Heart disease Social History (Updated 08/31/22 @ 01:59 by Cecelia Guevara RN) Smoking Status: Former smoker second hand exposure: Yes alcohol intake: former substance use type: crack/cocaine and methamphetamine current occupational status: disabled Travel in the last 8 weeks: None household members: friend(s) housing: house current occupation: unknown current occupational exposures/hazards: No caffeine: Yes Review of Systems *Neurologic Neurologic: Reports system reviewed and no additional complaints, except as documented Meds Home Medications and Allergies Home Medications Medication Instructions Recorded Confirmed Type ipratropium 0.5 mg-albuterol 3 mg 3 ml inhalation Q4H PRN wheezing 07/02/22 08/30/22 Rx (2.5 mg base)/3 mL nebulization #90 mL soln albuterol sulfate 90 mcg/actuation 2 inh inhalation Q4HP PRN 07/09/22 08/30/22 History aerosol inhaler (ProAir HFA) Shortness Of Breath furosemide 40 mg tablet 40 mg PO DAILY Fluid 07/09/22 08/30/22 History potassium chloride 10 mEq 10 meq PO DAILY Supplement 07/09/22 08/30/22 History tablet,extended release spironolactone 50 mg tablet 50 mg PO DAILY Fluid 07/09/22 08/30/22 History hydrocodone 7.5 mg-acetaminophen 1 tab PO TIDP PRN Pain 3 days #9 07/13/22 08/30/22 Rx 325 mg tablet tabs cephalexin 500 mg capsule 500 mg PO QID Infection 08/30/22 08/30/22 History clindamycin HCl 300 mg capsule 300 mg PO Q8H Infection 08/30/22 08/30/22 History gabapentin 400 mg capsule 400 mg PO BID PRN pain #30 caps 08/30/22 08/30/22 Rx New Prescriptions to Start Prescriptions: Allergies Allergy/AdvReac Type Severity Reaction Status Date / Time codeine Allergy Severe Anaphylaxis Verified 08/30/22 15:06 guaifenesin [From Mucinex] Allergy Severe SWELLS Verified 08/30/22 15:06 ketorolac [From Toradol] Allergy Severe Difficulty Verified 08/30/22 15:06 Swallowing sulfamethoxazole AdvReac Intermediate Rash Verified 08/30/22 15:06 [From Bactrim] trimethoprim [From Bactrim] AdvReac Intermediate Rash Verified 08/30/22 15:06 Ortho Exam (Inpt) Vital signs and Labs for Last 24 Hours: Temp Pulse Resp BP Pulse Ox 98.4 F 94 H
--- NOTE | 2022-08-31 16:25 | PC.NURSE ---
Patient complains of pain related to left leg but no new orders per hospitalist. VS stable and patient remained on room air. Dressing changed on left leg, wet to dry. MRI to be obtained. Lung sounds expiratory wheezing noted.
--- NOTE | 2022-08-31 21:00 | PC.NURSE ---
noted large circular area on right side of chest that pt stated was new, area assessed by paulina sandoval
--- NOTE | 2022-08-31 23:40 | CA_ITS ---
FINAL REPORT TECHNIQUE: Ultrasound images of the deep venous system were obtained from the left groin to the calf veins. CLINICAL HISTORY: acute left leg cellulitis redness, swelling, pain, Drug use COMPARISON: none FINDINGS: The deep venous system is normally compressible. Normal flow is identified. IMPRESSION: No evidence of left lower extremity DVT. Reviewed, Interpreted and Dictated by Cinthia Moran MD Transcribed by Nidhi Pineda Authenticated and [facility]
--- NOTE | 2022-09-01 00:39 | PC.NURSE ---
wet to dry dressing changed to left lower calf, pt tolerated well, sterile saline soaked 4x4 applied, wrapped with kerlix and coban.
[2022-09-01 03:52] VITALS: BP 138/85; PULSE 67; RESP 18; TEMP 36.7; O2SAT 95
[2022-09-01 03:53] VITALS: BMI 38.6
--- NOTE | 2022-09-01 04:42 | HMH.PHAINT ---
pharmacy nightwatch rosa eelna called regarding vancomycin dosing, noticed that vancomycin 2000mg was intially ordered in 250ml saline bag and prepared by pharmacy which is what is currently available, noticed on oct order was changed to 2000mg in 500ml bag, pt is on 1800ml fluid restriction daily, after discussion with rosa elena, order was changed back to vancomyin 2000mg in 250ml of saline at this time.
--- NOTE | 2022-09-01 05:27 | PC.NURSE ---
pt rested well, no acute distress noted, vss, dressing to left lower calf was changed this shift and pt tolerated well, pt medicated x1 for pain, noted area on thigh with redness extended beyond initial marking, noted new spot of redness ro right lateral chest area that was assessed by the doctor of osteopathy this shift, 3+ pitting edema noted to ble, generalized edema noted, pt upset regarding fluid restriction order. no other issues or concerns at this time.
[2022-09-01 06:17] LABS: Basophils % 0.5 % (0.1-2.0); Eosinophils # 0.5 K/mm3 (0.0-0.4); Eosinophils % 11.1 % (0.1-12.0); Hematocrit 32.3 % (42.0-52.0); Hemoglobin 10.2 g/dL (14.1-18.0); Lymphocytes # 0.9 K/mm3 (0.7-4.5); Lymphocytes % 20.1 % (10-50); Mean Corpuscular HGB Conc 31.5 g/dL (31.8-35.4); Mean Corpuscular Volume 101.4 fl (80-94); Mean Platelet Volume 8.4 fl (7.4-10.4); Monocytes # 0.3 K/mm3 (0.1-1.0); Monocytes % 7.1 % (1.7-9.3); Neutrophils # 2.7 K/mm3 (1.8-7.8); Neutrophils % 61.1 % (37.0-80.0); Platelet Count 76 K/mm3 (142-424); Red Blood Count 3.19 M/mm3 (4.60-6.20); White Blood Count 4.5 K/mm3 (4.8-10.8)
[2022-09-01 06:26] LABS: Alanine Aminotransferase 22 U/L (12-78); Albumin Level 2.3 g/dl (3.5-5.0); Albumin/Globulin Ratio 0.6 (1.1-1.8); Alkaline Phosphatase 184 U/L (38-126); Aspartate Amino Transferase 44 U/L (17-59); Bilirubin,Total 1.7 mg/dl (0.2-1.3); Blood Urea Nitrogen 9 mg/dl (9-20); Calcium 7.2 mg/dl (8.4-10.2); Carbon Dioxide 29 mmol/L (22.0-30.0); Chloride 107 mmol/L (98-107); Creatinine Clearance Estimated 299 mL/min (50-200); Estimated Glomerular Filt Rate 177 ml/min (>60); GFR (African American) 214 ML/MIN (>60); Globulin 3.9 g/dL (1.3-3.2); Glucose 97 mg/dl (74-100); Sodium 137 mmol/L (136-145); Total Protein,Serum 6.2 g/dl (6.3-8.2)
[2022-09-01 06:30] LABS: INR 1.53 (0.9-1.1); Prothrombin Time 16.1 seconds (10.1-12.5)
[2022-09-01 06:39] LABS: Anion Gap 4.8 mEq/L (5-15); Potassium 3.8 mmoL/L (3.5-5.1)
[2022-09-01 07:37] VITALS: BP 133/67; PULSE 69; RESP 17; TEMP 36.6; O2SAT 97
--- NOTE | 2022-09-01 10:50 | EXP.ORTH.PN ---
Subjective *Date: 09/01/22 *Time: 09:00 Interval history: Mr. Ragland is a 47-year-old male patient admitted to the acute inpatient service with concerns for left thigh cellulitis. This morning the patient is lying comfortably in bed. He underwent MRI of the left thigh yesterday. He states that he continues to have left thigh pain, but states that it has improved since his admission. He denies any current feelings of fevers, chills, or rigors. He denies any other symptoms or concerns at this time. Ortho Exam (Inpt) Vital signs and Labs for Last 24 Hours: Temp Pulse Resp BP Pulse Ox 97.8 F 69 17 133/67 97 09/01/22 07:37 09/01/22 07:37 09/01/22 07:37 09/01/22 07:37 09/01/22 07:37 Laboratory Results - last 24 hr 08/31/22 13:09: Ammonia 120 H 09/01/22 05:58: WBC 4.5 L, RBC 3.19 L, Hgb 10.2 L, Hct 32.3 L, MCV 101.4 H, MCH 32.0 H, MCHC 31.5 L, RDW 17.0, Plt Count 76 L, MPV 8.4, Neut % (Auto) 61.1, Lymph % (Auto) 20.1, [place] % (Auto) 7.1, Eos % (Auto) 11.1, Baso % (Auto) 0.5, Neut # (Auto) 2.7, Lymph # (Auto) 0.9, [place] # (Auto) 0.3, Eos # (Auto) 0.5 H, Baso # (Auto) 0.0 09/01/22 05:58: PT 16.1 H, INR 1.53 H 09/01/22 05:58: Sodium 137, Potassium 3.8, Chloride 107, Carbon Dioxide 29, Anion Gap 4.8 L, BUN 9 D, Creatinine 0.50 L, Estimated Creat Clear 299, Estimated GFR 177, Est GFR ( Amer) 214 D, Glucose 97, Calcium 7.2 L, Total Bilirubin 1.7 H, AST 44, ALT 22, Alkaline Phosphatase 184 H, Total Protein 6.2 L, Albumin 2.3 L D, Globulin 3.9 H, Albumin/Globulin Ratio 0.6 L Temp Pulse Resp BP Pulse Ox 98.4 F 94 H 18 144/92 H 95 08/31/22 08:00 08/31/22 08:00 08/31/22 08:00 08/31/22 08:00 08/31/22 08:00 Laboratory Results - last 24 hr 08/30/22 22:03: WBC 5.6, RBC 3.43 L, Hgb 10.9 L, Hct 33.8 L, MCV 98.4 H, MCH 31.7 H, MCHC 32.2, RDW 17.3, Plt Count 92 L, MPV 8.0, Neut % (Auto) 75.8, Lymph % (Auto) 14.6, [place] % (Auto) 5.1, Eos % (Auto) 4.1, Baso % (Auto) 0.4, Neut # (Auto) 4.3, Lymph # (Auto) 0.8, [place] # (Auto) 0.3, Eos # (Auto) 0.2, Baso # (Auto) 0.0, ESR 49 H 08/30/22 22:03: Sodium 138, Potassium 3.2 L, Chloride 106, Carbon Dioxide 29, Anion Gap 6.2, BUN 6 L, Creatinine 0.50 L, Estimated Creat Clear 298, Estimated GFR 177, Est GFR ( Amer) 214, Glucose 160 H, Calcium 7.6 L, Total Bilirubin 1.8 H, AST 65 H, ALT 31, Alkaline Phosphatase 283 H, C-Reactive Protein 9.9 H, Total Protein 7.5, Albumin 2.8 L, Globulin 4.7 H, Albumin/Globulin Ratio 0.6 L, Procalcitonin 0.104 08/30/22 22:03: Lactate 2.8 H 08/30/22 22:16: Urine Opiates Screen Negative, Urine Methadone Screen Negative, Ur Barbituates Screen Negative, Ur Phencyclidine Scrn Negative, Ur Amphetamines Screen Positive H, U Benzodiazepines Scrn Negative, Urine Cocaine Screen Negative, U Marijuana (THC) Screen Negative 08/30/22 23:22: SARS-CoV-2 (PCR) Not detected, Influenza A Untype (PCR) Not detected, Influenza Type B (PCR) Not detected 08/31/22 00:00: Magnesium 1.4 L 08/31/22 01:33: Lactate 0.8 08/31/22 06:34: WBC 5.2, RBC 3.32 L, Hgb 10.7 L, Hct 33.1 L, MCV 99.7 H, MCH 32.3 H, MCHC 32.4, RDW 17.2, Plt Count 89 L, MPV 8.4, Neut % (Auto) 75.2, Lymph % (Auto) 13.2, [place] % (Auto) 6.0, Eos % (Auto) 5.1, Baso % (Auto) 0.4, Neut # (Auto) 3.9, Lymph # (Auto) 0.7, [place] # (Auto) 0.3, Eos # (Auto) 0.3, Baso # (Auto) 0.0, Total Counted 100, Neutrophils % (Manual) 83 H, Lymphocytes % (Manual) 12, Monocytes % (Manual) 3, Eosinophils % (Manual) 2, Platelet Estimate Moderate decrease, RBC Morphology Normal 08/31/22 06:34: Sodium 139, Potassium 3.3 L, Chloride 109 H, Carbon Dioxide 28, Anion Gap 5.3, BUN 6 L, Creatinine 0.60 L, Estimated Creat Clear 248, Estimated GFR 143, Est GFR ( Amer) 173, Glucose 102 H D, Calcium 7.3 L, Total Bilirubin 2.2 H, AST 52, ALT 27, Alkaline Phosphatase 255 H, Total Protein 7.0, Albumin 2.6 L, Globulin 4.4 H, Albumin/Globulin Ratio 0.6 L 08/31/22 13:09: Ammonia 120 H I & O for Labs for Last 24 Hours: Intake & Output 08/29/22 08/30/22 08/31/22
--- NOTE | 2022-09-01 11:23 | EXP.DC.SUM ---
General Admission date:: 08/31/22 Discharge date: 09/01/22 HPI HPI HPI: Mr. Ragland is a 47-year-old male patient admitted to the acute inpatient service after presenting to the [facility] emergency department with a 3-day history of left anterior thigh pain with associated redness and swelling. He denies any history of fevers, chills, or rigors. He has been most recently evaluated by our orthopedic service in June 2022 secondary to his bilateral lower extremity chronic venous stasis ulcers. He underwent debridement and irrigation of his bilateral lower extremity venous stasis ulcers and it was recommended at that time that he follow-up with the [facility] plastics service. Today the patient reports that he has not been subsequently seen for any follow-up since his most recent admission. His past medical history is significant for methamphetamine abuse, COPD, atrial fibrillation not on chronic anticoagulation, liver cirrhosis, left-sided lacunar infarct, tobacco abuse, and HFrEF. He denies any other symptoms or concerns at this time. Hospital Course Hospital Course Hospital Course: The patient was admitted to the medical unit with orthopedic consultation. His laboratory studies and inflammatory markers were trended. His admission MELD score = 14 for his cirrhosis. He reported noncompliance with his medications. Blood cultures were acquired and he was started on IV antibiotic therapy. A plain x-ray of his femur identified no bony changes. A follow-up CT of his femur identified no osteomyelitis and cellulitis with no abscess. A follow-up MRI of his thigh identified cellulitis with no abscess or bony changes. Orthopedics recommended continued antibiotic therapy. His urine drug screen identified methamphetamines. His electrolytes and creatinine were trended and identified improvement and stability. His procalcitonin came back negative. His CBC identified a normal white blood cell count with stable hemoglobin. His blood cultures identified no growth to date. A stool study identified CRE positive. He will be discharged on fosfomycin therapy. His platelet count and INR were consistent with his chronic history of cirrhosis. His cirrhosis medications were restarted and the patient identified improved diuresis. He identified improvement and inquired about discharge home. We have recommended abstinence from illicit substance use including methadone. A goals of care conversation occurred with the patient and we have recommended outpatient palliative evaluations. We have also discussed hospice enrollment. The patient declined. We have recommended compliance with prescribed medications including antibiotics and follow-up with his PCP in 1 week. I spent 35 minutes in [id number] time with the patient and nursing staff concerning the discharge process. We discussed the admitting diagnoses and hospital course. We discussed identified improvement and the patient's desire to be discharged. We reviewed inpatient studies and imaging. The patient voiced understanding on the importance of follow-up with his primary care provider and specialist(s). He understands the importance of discontinuing illicit substance use including methadone. Outpatient services have been offered and declined. The patient plans to be compliant with the medication regimen prescribed and follow-up appointments. He understands that he can return to the emergency department with any sudden changes or concerns. Exam Data for Last 24 hours Vital signs and Labs for Last 24 Hours: Temp Pulse Resp BP Pulse Ox 97.8 F 69 17 133/67 97 09/01/22 07:37 09/01/22 07:37 09/01/22 07:37 09/01/22 07:37 09/01/22 07:37 Laboratory Results - last 24 hr 08/31/22 13:09: Ammonia 120 H 09/01/22 05:58: WBC 4.5 L, RBC 3.19 L, Hgb 10.2 L, Hct 32.3 L, MCV 101.4 H, MCH 32.0 H, MCHC 31.5 L, RDW 17.0, Plt Count 76 L, MPV 8.4, Neut % (Auto) 61.1, Lymph % (Aut
[2022-09-01 11:39] LABS: Vancomycin,Trough 23.9 ug/mL (5.0-10.0)
--- NOTE | 2022-09-01 12:34 | P.CONPHA_ITS ---
Pharmacy Intervention Comments: Met with patient at bedside to licensed mental health counselor on discharge medications prior to discharge. Overviewed new and continued medications, including indications and possible adverse effects/mitigation strategies. Patient declared noncompliance with medications. Advised patient of potential consequences. Patient expressed desire for pain medications; nursing entered and offered to inquire to the physician on his behalf. Patient verbalized understanding of information provided and had no other questions or concerns at this time. -Coretta Davenport, PharmD Candidate 2022
[2022-09-03 22:42] LABS: MRSA DNA PCR NEGATIVE
--- NOTE | 2022-09-05 13:45 | CARE MANAGER ---
Attempted to contact patient related to hospital discharge and no VM option. MATT Armas
== END 2022-09-01 15:41 | disposition home or self-care (01) ==
LOC: ER 23:21 → 2ND 08-31 02:34
PROVIDERS: Nurse Practitioner Family; Admitting Provider Student in an Organized Health Care Education/Training Program; Emergency Provider Emergency Medicine; PCP Family Medicine; Visit Provider Family Medicine
DX: L03.116 Cellulitis of left lower limb (principal); Z79.899 Other long term (current) drug therapy; I50.21 Acute systolic (congestive) heart failure; J44.9 Chronic obstructive pulmonary disease, unspecified; I48.0 Paroxysmal atrial fibrillation; K74.60 Unspecified cirrhosis of liver; I83.018 Varicose veins of right lower extremity with ulcer other part of lower leg; I83.028 Varicose veins of left lower extremity with ulcer other part of lower leg; F17.210 Nicotine dependence, cigarettes, uncomplicated; E87.6 Hypokalemia; F15.10 Other stimulant abuse, uncomplicated; Z20.822 Contact with and (suspected) exposure to COVID-19
CPT/HCPCS: G0378; 36415; 73552; 73701; 73720; 80053; 80202; 80305; 82140; 83605; 83735; 84145; 85007; 85014; 85018; 85025; 85048; 85049; 85610; 85651; 86140; 87040; 87081; 87641; 93971; 94640; 99285; A9576; C9803; J2543; J3370; J3475; Q9967; U0003; U0005

== ENCOUNTER 2022-11-07 00:08 | Observation (INO) | payer MEDICARE, OTHER, SELFPAY ==
[2022-11-07] VITALS (15 sets, daily range): BP systolic 124–178; BP diastolic 75–116; PULSE 56–117; RESP 16–22; TEMP 36.3–38; O2SAT 94–100; BMI 36.9; BMI 38.8
--- NOTE | 2022-11-07 00:19 | ECG_ITS ---
APPROVED REPORT Exam: Resting ECG HR:110 bpm ECG Measurements Heart Rate 110 AXES QRSd 107 QRS 50 QT 326 T 119 QTc 391 Conclusion Sinus Tach NONSPECIFIC ST & T-WAVE ABNORMALITY O/w NORMAL ECG UNCONFIRMED REPORT Electronically signed by : Wilfredo Muñoz MD 11/08/2022 03:06:15
--- NOTE | 2022-11-07 00:20 | XR_ITS ---
PROCEDURE INFORMATION: Exam: XR Chest Exam date and time: 11/07/2022 12:40 AM Age: 47 years old Clinical indication: Shortness of breath; Additional info: SOB TECHNIQUE: Imaging protocol: Radiologic exam of the chest. Views: 2 views. COMPARISON: CR XR CHEST PORTABLE 07/08/2022 4:05 PM FINDINGS: Lungs: There is patchy airspace disease most prominent in the right lower lung zone. Pleural spaces: There is blunting of the right lateral costophrenic angle consistent with small pleural effusion. Lateral view demonstrates density at the anterior lung base likely representing atelectasis of the anterior right lower lobe. Heart/Mediastinum: Unremarkable. No cardiomegaly. Vasculature: Metallic stent is noted in the right upper quadrant likely related to the liver. Bones/joints: Unremarkable. IMPRESSION: 1. Patchy airspace disease most prominent within right lower lung zone either representing acute inflammation or edema. 2. Suspected atelectasis of the anterior right lower lobe. 3. Small right effusion.
--- NOTE | 2022-11-07 00:49 | PC.NURSE ---
Pt gone to RAD via wheelchair
--- NOTE | 2022-11-07 00:52 | PC.NURSE ---
Pt back from RAD
[2022-11-07 00:57] LABS: Basophils % 0.1 % (0.1-2.0); Eosinophils # 0.1 K/mm3 (0.0-0.4); Hematocrit 35.5 % (42.0-52.0); Hemoglobin 11.7 g/dL (14.1-18.0); Lymphocytes # 0.6 K/mm3 (0.7-4.5); Lymphocytes % 5.7 % (10-50); Mean Corpuscular Hemoglobin 31.6 pg (27.0-31.2); Mean Corpuscular Volume 95.7 fl (80-94); Mean Platelet Volume 8.6 fl (7.4-10.4); Monocytes # 0.4 K/mm3 (0.1-1.0); Monocytes % 3.6 % (1.7-9.3); Neutrophils # 9.3 K/mm3 (1.8-7.8); Neutrophils % 89.6 % (37.0-80.0); Platelet Count 81 K/mm3 (142-424); Red Cell Distribution Width 16.5 % (11.5-17.5); White Blood Count 10.4 K/mm3 (4.8-10.8)
[2022-11-07 00:59] LABS: Chloride 104 mmol/L (98-107); Sodium 133 mmol/L (136-145)
[2022-11-07 01:00] LABS: Potassium 3.6 mmoL/L (3.5-5.1)
[2022-11-07 01:01] LABS: MANUAL DIFFERENTIAL MANUAL DIFFERENTIAL (MANUAL DIFF)
[2022-11-07 01:02] LABS: Alanine Aminotransferase 39 U/L (12-78); Alkaline Phosphatase 236 U/L (38-126); Anion Gap 4.6 mEq/L (5-15); Aspartate Amino Transferase 66 U/L (17-59); Bilirubin,Total 2.6 mg/dl (0.2-1.3); Blood Urea Nitrogen 10 mg/dl (9-20); Carbon Dioxide 28 mmol/L (22.0-30.0); Creatinine Clearance Estimated 239 mL/min (50-200); Estimated Glomerular Filt Rate 143 ml/min (>60); GFR (African American) 173 ML/MIN (>60)
[2022-11-07 01:03] LABS: Albumin Level 2.8 g/dl (3.5-5.0); Albumin/Globulin Ratio 0.7 (1.1-1.8); Calcium 7.6 mg/dl (8.4-10.2); Globulin 4.2 g/dL (1.3-3.2); Glucose 93 mg/dl (74-100); Lactic Acid 1.2 mmol/L (0.7-2.1)
[2022-11-07 01:08] LABS: C-Reactive Protein 18.5 mg/L (0-4)
[2022-11-07 01:11] LABS: Coronavirus 19, PCR Not Detected (NotDetected); Influenza A, PCR Not Detected (NotDetected); Influenza B, PCR Not Detected (NotDetected)
[2022-11-07 01:17] LABS: Troponin I 0.04 ng/ml (0.00-0.034)
[2022-11-07 01:23] LABS: Lymphocytes % 7 % (10-50); Monocytes % 2 % (2-9); Neutrophils % 90 % (42-76); RBC Morphology Normal; Total Cells Counted 100
[2022-11-07 01:24] LABS: Platelet Estimate Moderate Decrease
--- NOTE | 2022-11-07 01:27 | HMH.EDSOB ---
Discharge Plan Disposition Patient Disposition: Admitted As Inpatient Clinical Impressions Clinical Impression: Left leg cellulitis, Severe sepsis with acute organ dysfunction, Abnormal drug screen Discharge ED Provider: Mal (ED)Louie Resp/SOB HPI General Chief Complaint: Shortness of Breath/Dyspnea Stated Complaint: SOB, cellulitis Time Seen by Provider: 11/07/22 01:27 Mode of Arrival: EMS Source of Information: Patient, EMS and Medical Record Limitations: Physical Limitations Description of Symptoms (Recalled from ER Triage Doc. by RN): pt to ED via EMS with cellulitis in his left foot x 3 years and SOB x 4 days. pt denies any chest pain or recent illness. History of Present Illness pt with hx of inc pain and reddness and swelling lt lower ext - reports sob but denied chest pain - reports compliant with meds MD Complaint: shortness of breath Onset (ago): day(s) Severity: moderate Consistency/Duration: intermittent Known history of: COPD and congestive heart failure Associated symptoms: denies other symptoms Related Data Home oxygen amount: none Home Medications Medication Instructions Recorded Confirmed albuterol sulfate 90 mcg/actuation 2 inh inhalation Q4HP PRN 07/09/22 11/07/22 aerosol inhaler (ProAir HFA) Shortness Of Breath furosemide 40 mg tablet 40 mg PO DAILY Fluid 07/09/22 11/07/22 potassium chloride 10 mEq 10 meq PO DAILY Supplement 07/09/22 11/07/22 tablet,extended release spironolactone 50 mg tablet 50 mg PO DAILY Fluid 07/09/22 11/07/22 ascorbic acid (vitamin C) 500 mg 500 mg PO BID Supplement 11/07/22 11/07/22 tablet (Vitamin C) carvedilol 3.125 mg tablet 3.125 mg PO BID High blood pressure 11/07/22 11/07/22 fosfomycin tromethamine 3 gram 1 packet PO Q3D . 11/07/22 11/07/22 oral packet gabapentin 600 mg tablet 600 mg PO BID Pain 11/07/22 11/07/22 lactulose 20 gram/30 mL oral 30 g PO TID . 11/07/22 11/07/22 solution pantoprazole 40 mg tablet,delayed 40 mg PO HS gerd 11/07/22 11/07/22 release polysaccharide iron complex 150 mg 150 mg PO BID Supplement 03/27/23 03/27/23 iron capsule (Ferrex) thiamine mononitrate (vit B1) 100 100 mg PO DAILY Supplement 11/07/22 11/07/22 mg tablet Previous Rx's Medication Instructions Recorded ipratropium 0.5 mg-albuterol 3 mg 3 ml inhalation Q4H PRN wheezing 07/02/22 (2.5 mg base)/3 mL nebulization #90 mL soln hydrocodone 7.5 mg-acetaminophen 1 tab PO TIDP PRN Pain 3 days #9 07/13/22 325 mg tablet tabs Allergies Allergy/AdvReac Type Severity Reaction Status Date / Time codeine Allergy Severe Anaphylaxis Verified 09/27/22 13:53 guaifenesin [From Mucinex] Allergy Severe SWELLS Verified 09/27/22 13:53 ketorolac [From Toradol] Allergy Severe Difficulty Verified 09/27/22 13:53 Swallowing sulfamethoxazole AdvReac Intermediate Rash Verified 09/27/22 13:53 [From Bactrim] trimethoprim [From Bactrim] AdvReac Intermediate Rash Verified 09/27/22 13:53 Well's Criteria PE Score Clinical signs/symptoms of DVT: Yes PE is #1 diagnosis or equally likely: Yes Heart rate is > 100: No Immobile at least 3 days, or surgery in past 4 wks: Yes Previously, obj. diagnosed PE or DVT: No Hemoptysis: No Malignancy w/Rx within 6mo, or palliative: No PE Score: 7 Risk of Pulmonary Embolism by score: >3 pts=Hi Risk (78%) [facility] Disclaimer: The information contained in this section may have been updated after the patient was seen, as this information can be updated by other users. Medical History (Updated 11/07/22 @ 03:26 by Louie Resendez MD (ED)) Atrial fibrillation Chronic pain Cirrhosis COPD (chronic obstructive pulmonary disease) Hypertension Surgical History S/P TIPS (transjugular intrahepatic portosystemic shunt) Family History Other Heart disease Social History (Updated 08/31/22 @ 01:59 by Cecelia Guevara
[2022-11-07 01:40] LABS: Erythrocyte Sedimentation Rate 26 mm/hr (0-15)
--- NOTE | 2022-11-07 02:09 | CT_ITS ---
PROCEDURE INFORMATION: Exam: CTA Chest With Contrast Exam date and time: 11/07/2022 2:44 AM Age: 47 years old Clinical indication: Shortness of breath; Additional info: SOA TECHNIQUE: Imaging protocol: Computed tomographic angiography of the chest with contrast. 3D rendering (Not supervised by radiologist): MIP and/or 3D reconstructed images were created by the technologist. Radiation optimization: All CT scans at this facility use at least one of these dose optimization techniques: automated exposure control; mA and/or kV adjustment per patient size (includes targeted exams where dose is matched to clinical indication); or iterative reconstruction. Contrast material: ISOVUE; Contrast volume: 70 ml; Contrast route: INTRAVENOUS (IV); REPORTING DATA: Count of CT and Cardiac NM exams in prior 12 months: This patient has received 10 known CTs and 0 known cardiac nuclear medicine studies in the 12 months prior to the current study. COMPARISON: CT ANGIO CHEST PE PROTOCOL 07/08/2022 8:26 PM FINDINGS: Pulmonary arteries: Normal. No pulmonary emboli. Aorta: Unremarkable. No aortic aneurysm. No aortic dissection. Lungs: Some ground-glass opacity is present bilaterally. Fluid is seen in both the major and minor fissure on the right. Pleural spaces: Small to moderate-sized right-sided pleural effusion. Heart: Cardiomegaly. Coronary arteries: No coronary artery calcifications noted. Lymph nodes: Unremarkable. No enlarged lymph nodes. Liver: Cirrhosis with tips shunt. Bones/joints: Unremarkable. No acute fracture. Soft tissues: Unremarkable. IMPRESSION: 1. No evidence of pulmonary embolus. 2. New small to moderate right-sided pleural effusion. 3. Some ground-glass opacities seen in the lungs may represent some mild edema.
--- NOTE | 2022-11-07 02:11 | CT_ITS ---
PROCEDURE INFORMATION: Exam: CT Left Lower Extremity With Contrast; Lower Leg Exam date and time: 11/07/2022 2:49 AM Age: 47 years old Clinical indication: Cellulitis; Lower leg; Left; Additional info: Infection TECHNIQUE: Imaging protocol: CT of the left lower extremity with intravenous contrast was performed. Exam focused on the lower leg. Radiation optimization: All CT scans at this facility use at least one of these dose optimization techniques: automated exposure control; mA and/or kV adjustment per patient size (includes targeted exams where dose is matched to clinical indication); or iterative reconstruction. Contrast material: ISOVUE; Contrast volume: 70 ml; Contrast route: IV; REPORTING DATA: Count of CT and Cardiac NM exams in prior 12 months: This patient has received 10 known CTs and 0 known cardiac nuclear medicine studies in the 12 months prior to the current study. COMPARISON: MR LOWER LEG LT WO CON 07/11/2022 10:44 AM FINDINGS: Bones/joints: No bony fractures are noted. No abscess is seen. No obvious osteomyelitis. Soft tissues: Diffuse skin thickening and mild subcutaneous edema is seen throughout the left leg. IMPRESSION: Skin thickening and subcutaneous edema consistent with suspected cellulitis. No abscess or osteomyelitis noted.
[2022-11-07 02:21] LABS: Microscopic, Urine URINE MICROSCOPIC (MICROSCOPIC)
[2022-11-07 02:30] LABS: Appearance,Urine CLEAR (Clear); Bilirubin,Urine Negative (Negative); Blood, Urine TRACE-L (Negative); Color,Urine YELLOW (Yellow); Glucose,Urine (UA) Negative (Negative); Ketones,Urine Negative (Negative); Leukocyte Esterase,Urine Negative (Negative); Nitrate,Urine Negative (Negative); Protein,Urine Negative (Negative)
--- NOTE | 2022-11-07 02:39 | PC.NURSE ---
Pt gone to RAD via stretcher
[2022-11-07 02:43] LABS: Barbiturates Screen,Urine Negative ng/ml (<200); Benzodiazepines Screen,Urine Negative ng/ml (<200)
[2022-11-07 02:44] LABS: Amphetamine/Metha Screen,Urine Positive ng/ml (<1000); Cannabinoid Screen,Urine Negative ng/ml (<50)
[2022-11-07 02:45] LABS: Cocaine Screen,Urine Negative ng/ml (<300)
[2022-11-07 02:46] LABS: Methadone Screen,Urine Negative ng/ml (<300); Opiate Screen,Urine Negative ng/ml (<300)
[2022-11-07 02:47] LABS: Phencyclidine Screen,Urine Negative ng/ml (<25)
[2022-11-07 02:52] LABS: Squamous Epithelial Cell,Urine Occasional #/hpf (0-5)
--- NOTE | 2022-11-07 02:55 | PC.NURSE ---
PT back from RAD
--- NOTE | 2022-11-07 03:51 | PC.NURSE ---
Hospitalist, Genie at BS
--- NOTE | 2022-11-07 05:06 | EXP.HP ---
History of Present Illness *Admission Date: 11/07/22 *Reason for visit:: Leg pain *History of present illness: This is a 47-year-old male with a past medical history of HFrEF, COPD, atrial fibrillation, methamphetamine abuse, chronic venous stasis ulcer disease with continued cellulitis who presents emergency department today with complaints of shortness of breath and increased leg pain. He reports bilateral lower extremity leg pain that is worsening in nature. He has been admitted to this facility multiple times for cellulitis of these extremities. He has a history of medical noncompliance. He also reports 4 days of increased shortness of breath in the setting of his COPD. Emergency Department work-up significant for elevated inflammatory markers. Mildly elevated troponin at 0.04. CT of his lower extremities notable for left lower extremity cellulitis without obvious osteomyelitis or abscess. Given patient's above-mentioned complaints he will be admitted to the hospital service for further evaluation and management. [facility] Disclaimer: The information contained in this section may have been updated after the patient was seen, as this information can be updated by other users. Medical History Atrial fibrillation Chronic pain Cirrhosis COPD (chronic obstructive pulmonary disease) Hypertension Surgical History S/P TIPS (transjugular intrahepatic portosystemic shunt) Family History Other Heart disease Social History (Updated 11/07/22 @ 06:16 by Samanta Singh RN) Smoking Status: Current every day smoker tobacco type: smokeless tobacco second hand exposure: Yes alcohol intake: former substance use type: crack/cocaine and methamphetamine current occupational status: disabled Travel in the last 8 weeks: None household members: friend(s) housing: house current occupation: unknown current occupational exposures/hazards: No caffeine: Yes Review of Systems Review of Systems Review of systems:: unable to obtain Review of systems (narrative): Encephalopathy Meds Home Medications and Allergies Home Medications Medication Instructions Recorded Confirmed Type albuterol sulfate 90 mcg/actuation 2 inh inhalation QID PRN Shortness 07/09/22 11/07/22 History aerosol inhaler (ProAir HFA) Of Breath ascorbic acid (vitamin C) 500 mg 500 mg PO BID Supplement 11/07/22 11/07/22 History tablet (Vitamin C) gabapentin 600 mg tablet 600 mg PO BID Pain 11/07/22 11/07/22 History polysaccharide iron complex 150 mg 150 mg PO BID Supplement 11/07/22 11/07/22 History iron capsule (Ferrex) thiamine mononitrate (vit B1) 100 100 mg PO DAILY Supplement 11/07/22 11/07/22 History mg tablet New Prescriptions to Start Prescriptions: Allergies Allergy/AdvReac Type Severity Reaction Status Date / Time codeine Allergy Severe Anaphylaxis Verified 09/27/22 13:53 guaifenesin [From Mucinex] Allergy Severe SWELLS Verified 09/27/22 13:53 ketorolac [From Toradol] Allergy Severe Difficulty Verified 09/27/22 13:53 Swallowing sulfamethoxazole AdvReac Intermediate Rash Verified 09/27/22 13:53 [From Bactrim] trimethoprim [From Bactrim] AdvReac Intermediate Rash Verified 09/27/22 13:53 Exam Data for Last 24 hours Vital signs and Labs for Last 24 Hours: Temp Pulse Resp BP Pulse Ox 98.7 F 59 L 16 134/81 96 11/07/22 04:33 11/07/22 04:33 11/07/22 04:33 11/07/22 04:33 11/07/22 04:01 Laboratory Results - last 24 hr 11/07/22 00:45: WBC 10.4, RBC 3.70 L, Hgb 11.7 L, Hct 35.5 L, MCV 95.7 H, MCH 31.6 H, MCHC 33.0, RDW 16.5, Plt Count 81 L, MPV 8.6, Neut % (Auto) 89.6 H, Lymph % (Auto) 5.7 L, [place] % (Auto) 3.6, Eos % (Auto) 1.0, Baso % (Auto) 0.1, Neut # (Auto) 9.3 H, Lymph # (Auto) 0.6 L, [place] # (Auto) 0.4, Eos # (Auto) 0
--- NOTE | 2022-11-07 05:25 | PC.NURSE ---
PT ARRIVED TO FLOOR AT THIS TIME
[2022-11-07 06:37] LABS: ABG Base Excess 2.4 mmol/L (-2.4-2.3); ABG HCO3 26.2 mmhg (22.0-26.0); ABG Oxygen Saturation 96 % (90-100); ABG PCO2 37.3 mmhg (35.0-45.0); ABG PH 7.46 mmol/L (7.35-7.45); ABG TCO2 27.3 mmhg (23-27); Allen's Test Acceptable; Oxygen 21 %; Source Right Radial
--- NOTE | 2022-11-07 07:51 | EXP.PHA.CONS ---
Pharmacy Consult Date: 11/07/22 Time: 07:51 Referring provider: DR. GONZALEZ Reason for Consult:: VANCOMYCIN DOSING Allergies Allergy/AdvReac Type Severity Reaction Status Date / Time codeine Allergy Severe Anaphylaxis Verified 09/27/22 13:53 guaifenesin [From Mucinex] Allergy Severe SWELLS Verified 09/27/22 13:53 ketorolac [From Toradol] Allergy Severe Difficulty Verified 09/27/22 13:53 Swallowing sulfamethoxazole AdvReac Intermediate Rash Verified 09/27/22 13:53 [From Bactrim] trimethoprim [From Bactrim] AdvReac Intermediate Rash Verified 09/27/22 13:53 Home Medications Medication Instructions Recorded Confirmed Type albuterol sulfate 90 mcg/actuation 2 inh inhalation QID PRN Shortness 07/09/22 11/07/22 History aerosol inhaler (ProAir HFA) Of Breath furosemide 40 mg tablet 40 mg PO DAILY Fluid 07/09/22 09/27/22 History potassium chloride 10 mEq 10 meq PO DAILY Supplement 07/09/22 09/27/22 History tablet,extended release spironolactone 50 mg tablet 50 mg PO DAILY Fluid 07/09/22 09/27/22 History hydrocodone 7.5 mg-acetaminophen 1 tab PO TIDP PRN Pain 3 days #9 07/13/22 09/27/22 Rx 325 mg tablet tabs ascorbic acid (vitamin C) 500 mg 500 mg PO BID Supplement 11/07/22 History tablet (Vitamin C) carvedilol 3.125 mg tablet 3.125 mg PO BID High blood pressure 11/07/22 History gabapentin 600 mg tablet 600 mg PO BID Pain 11/07/22 11/07/22 History pantoprazole 40 mg tablet,delayed 40 mg PO HS gerd 11/07/22 History release polysaccharide iron complex 150 mg 150 mg PO BID Supplement 11/07/22 History iron capsule (Ferrex) thiamine mononitrate (vit B1) 100 100 mg PO DAILY Supplement 11/07/22 History mg tablet New Prescriptions to Start Prescriptions: Height: 1.75 m Weight: 118.898 kg Laboratory Results:: Laboratory Results - last 24 hr 11/07/22 00:45: WBC 10.4, RBC 3.70 L, Hgb 11.7 L, Hct 35.5 L, MCV 95.7 H, MCH 31.6 H, MCHC 33.0, RDW 16.5, Plt Count 81 L, MPV 8.6, Neut % (Auto) 89.6 H, Lymph % (Auto) 5.7 L, [place] % (Auto) 3.6, Eos % (Auto) 1.0, Baso % (Auto) 0.1, Neut # (Auto) 9.3 H, Lymph # (Auto) 0.6 L, [place] # (Auto) 0.4, Eos # (Auto) 0.1, Baso # (Auto) 0.0, Total Counted 100, Neutrophils % (Manual) 90 H, Band Neutrophils % 1.0, Lymphocytes % (Manual) 7 L, Monocytes % (Manual) 2, Platelet Estimate Moderate decrease, RBC Morphology Normal 11/07/22 00:45: Sodium 133 L, Potassium 3.6, Chloride 104, Carbon Dioxide 28, Anion Gap 4.6 L, BUN 10, Creatinine 0.60 L, Estimated Creat Clear 239, Estimated GFR 143, Est GFR ( Amer) 173, Glucose 93, Calcium 7.6 L, Total Bilirubin 2.6 H, AST 66 H, ALT 39, Alkaline Phosphatase 236 H, Troponin I 0.04 H, C-Reactive Protein 18.5 H, Total Protein 7.0, Albumin 2.8 L, Globulin 4.2 H, Albumin/Globulin Ratio 0.7 L 11/07/22 00:45: Lactate 1.2 11/07/22 00:45: ESR 26 H 11/07/22 01:02: SARS-CoV-2 (PCR) Not detected, Influenza A Untype (PCR) Not detected, Influenza Type B (PCR) Not detected 11/07/22 02:15: Urine Color Yellow, Urine Appearance Clear, Urine pH 8.0, Ur Specific [place] 1.010, Urine Protein Negative, Urine Glucose (UA) Negative, Urine Ketones Negative, Urine Blood Trace-l, Urine Nitrate Negative, Urine Bilirubin Negative, Urine Urobilinogen 4.0, Ur Leukocyte Esterase Negative, Urine RBC 3-5, Urine WBC None, Ur Squamous Epith Cells Occasional, Urine Bacteria None 11/07/22 02:15: Urine Opiates Screen Negative, Urine Methadone Screen Negative, Ur Barbituates Screen Negative, Ur Phencyclidine Scrn Negative, Ur Amphetamines Screen Positive H, U Benzodiazepines Scrn Negative, Urine Cocaine Screen Negative, U Marijuana (THC) Screen Negative 11/07/22 05:28: Specimen Source Right radial, O2 % 21, ABG pH 7.46 H, ABG pCO2 37.3, ABG pO2 81.0, ABG HCO3 26.2 H, ABG Total CO2 27.3 H, ABG O2 Saturation 96, ABG Base Excess 2.4 H, Jonnathan Test Acceptable Medical History: Medical History (Updated 11/07/22 @ 05:22 by MAURO Watson) Atrial fibrillation Chronic pain Cirrhosis C
--- NOTE | 2022-11-07 12:36 | HMH.PHAINT1 ---
Pharmacy Intervention Comments: Reconciled patient's home medications using pharmacy fill history and patient interview.
--- NOTE | 2022-11-07 14:17 | HMH.PTWOUND ---
Rehab Inpt Wound Evaluation Rehab IP Wound Evaluation Start: 11/07/22 10:58 Freq: ONCE Status: Active Protocol: Document 11/07/22 14:09 [place] (Rec: 11/07/22 14:17 PHORNE [id number]) Rehab PT Wound Assessment Subjective Subjective 47 yowm adm to [facility] with cellulitis of L LE and sepsis. He has long hx of L LE chronic wounds with poor healing. He reports significant pain throughout the L LE at this time. He lives alone and is generally independent with mobility at baseline. Wound Left Lateral Tam Wound Type Stasis Ulcer Is This a Chronic Wound Yes Wound Length (cm) 3.2 Wound Width (cm) 2.2 Wound Depth (cm) 0.2 Wound Bed Appearance Yellow,Eschar Percentage of Eschar (Yellow) (%) 100 Wound Margins Description Well Defined Surrounding Tissue Appearance Bright Red Edema Type Pitting Edema Degree 2+ Query Text:1+ Trace, Barely Detectable, Rebound 15-30 seconds 2+ Moderate, Slight Indentation, Rebound 10-20 seconds 3+ Deep, Deeper Indentation, Rebound > 30 seconds 4+ Very Deep, Rebound > 60 seconds Wound Drainage Description Purulent Drainage Amount Scant Wound Topical Solution/Irrigant Saline Irrigant Primary Dressing petroleum gauze Wound Secondary Dressing Type Non-Adherent Gauze Pad, Adhering Gauze Roll Wound Debridement Method Gauze,Mechanical Wound Debridement Amount of Tissue Minimal Removed Dressing Change Patient Tolerance Tolerated Well Left Medial Tam Wound Type Stasis Ulcer Is This a Chronic Wound Yes Wound Length (cm) 3.8 Wound Width (cm) 1.8 Wound Depth (cm) 0.2 Wound Bed Appearance Yellow,Eschar Percentage of Eschar (Yellow) (%) 100 Wound Margins Description Well Defined Surrounding Tissue Appearance Bright Red Edema Type Pitting Edema Degree 2+ Query Text:1+ Trace, Barely Detectable, Rebound 15-30 seconds 2+ Moderate, Slight Indentation, Rebound 10-20 seconds 3+ Deep, Deeper Indentation, Rebound > 30 seconds 4+ Very Deep, Rebound > 60 seconds Surrounding Tissue Temperature Warm Wound Drainage Description Purulent Drainage Amount Scant
--- NOTE | 2022-11-07 18:54 | PC.NURSE ---
pt pleasant. up as kendrick. c/o pain, relieved per mar. dsg to lt lower leg. dry dsg with coban. no issues this shift. cb within reach.
[2022-11-08] VITALS (7 sets, daily range): BP systolic 93–160; BP diastolic 69–96; PULSE 76–100; RESP 17–22; TEMP 36.5–37.2; O2SAT 94–98; BMI 39.8
[2022-11-08 04:20] LABS: Basophils % 0.6 % (0.1-2.0); Eosinophils # 0.4 K/mm3 (0.0-0.4); Eosinophils % 9.1 % (0.1-12.0); Hemoglobin 11.2 g/dL (14.1-18.0); Lymphocytes # 0.9 K/mm3 (0.7-4.5); Lymphocytes % 19.2 % (10-50); Mean Corpuscular HGB Conc 32.1 g/dL (31.8-35.4); Mean Corpuscular Hemoglobin 31.7 pg (27.0-31.2); Mean Corpuscular Volume 98.8 fl (80-94); Mean Platelet Volume 9.4 fl (7.4-10.4); Monocytes # 0.4 K/mm3 (0.1-1.0); Monocytes % 7.9 % (1.7-9.3); Neutrophils # 2.9 K/mm3 (1.8-7.8); Neutrophils % 63.2 % (37.0-80.0); Platelet Count 78 K/mm3 (142-424); Red Blood Count 3.55 M/mm3 (4.60-6.20); Red Cell Distribution Width 16.7 % (11.5-17.5); White Blood Count 4.5 K/mm3 (4.8-10.8)
[2022-11-08 04:26] LABS: Anion Gap 5.6 mEq/L (5-15); Blood Urea Nitrogen 16 mg/dl (9-20); Calcium 7.5 mg/dl (8.4-10.2); Carbon Dioxide 28 mmol/L (22.0-30.0); Chloride 103 mmol/L (98-107); Creatinine Clearance Estimated 215 mL/min (50-200); Estimated Glomerular Filt Rate 120 ml/min (>60); GFR (African American) 145 ML/MIN (>60); Glucose 94 mg/dl (74-100); Potassium 3.6 mmoL/L (3.5-5.1); Sodium 133 mmol/L (136-145)
[2022-11-08 04:52] LABS: Vancomycin,Trough 30.3 ug/mL (5.0-10.0)
--- NOTE | 2022-11-08 04:56 | PC.NURSE ---
vancomycin trough called to [facility] 30.3; instructed to hold 5am dose and that she will change the dosing, repeated and verified.
--- NOTE | 2022-11-08 05:53 | PC.NURSE ---
no changes from previous assessment, pt c/o pain lle 05/23 and medicated x1 with morphine as prescribed, no acute distress, vancomycin trough was 30.3 and 5am dose was held, no other issues or concerns at this time
--- NOTE | 2022-11-08 11:00 | PC.NURSE ---
Dr. Whyte notified of critical result +CRE and Vanc Trough of 22.9. No new orders at this time.
[2022-11-08 11:07] LABS: Vancomycin,Trough 22.9 ug/mL (5.0-10.0)
--- NOTE | 2022-11-08 11:16 | EXP.DC.SUM ---
General Admission date:: 11/07/22 Discharge date: 11/08/22 HPI HPI HPI: This is a 47-year-old male with a past medical history of HFrEF, COPD, atrial fibrillation, methamphetamine abuse, chronic venous stasis ulcer disease with continued cellulitis who presents emergency department today with complaints of shortness of breath and increased leg pain. He reports bilateral lower extremity leg pain that is worsening in nature. He has been admitted to this facility multiple times for cellulitis of these extremities. He has a history of medical noncompliance. He also reports 4 days of increased shortness of breath in the setting of his COPD. Emergency Department work-up significant for elevated inflammatory markers. Mildly elevated troponin at 0.04. CT of his lower extremities notable for left lower extremity cellulitis without obvious osteomyelitis or abscess. Given patient's above-mentioned complaints he will be admitted to the hospital service for further evaluation and management. Hospital Course Hospital Course Hospital Course: Mr. Ragland is a 47-year-old male with a past medical history of HFrEF, COPD, atrial fibrillation, methamphetamine abuse,? chronic venous stasis ulcer disease with continued cellulitis who presented To the emergency room with complaint shortness of breath and increased leg pain. Has had leg pain, redness, and increased swelling. Admitted for antibiotics and treatment of sepsis. Problems addressed as follows: Sepsis Cellulitis On admission meets criteria for sepsis with tachycardia, Fever and infection source. Additionally noted to be positive for meth on admission UDS. Started on emperic antibiotics. Likely secondary to LLE cellulitis. Lactate negative on admission. mild elevation of inflammatory markers. Transitioned to oral antibiotics as symptoms defervesced. Improved clinically by morning. Will complete course of zyvox and levaquin. Blood cultures negative at time of DC. ?HFrEF ?does not appear in overload at this time. Continued home diuretic. Stable on room air during admission. No chest pain. chronic obstructive pulmonary ChroniC respiratory Failure Initially required nasal cannula oxygen while in the ER, weaned to room air after arriving to the floor. Stable on room air for over 24 hours. Continued inhaler therapy. Continue COPD management per home regimen. Cirrhosis LFTs stable. Continued home lactulose. No altered mentation or encephalopathy. Platelets stable. Stable for discharge home on oral antibiotics. Tolerating p.o. intake. Afebrile for over 24 hours. Follow-up with PCP for further management. Exam Data for Last 24 hours Vital signs and Labs for Last 24 Hours: Temp Pulse Resp BP Pulse Ox 97.7 F 76 18 160/88 H 97 11/08/22 07:55 11/08/22 11:07 11/08/22 07:55 11/08/22 07:55 11/08/22 07:55 Laboratory Results - last 24 hr 11/08/22 04:10: WBC 4.5 L D, RBC 3.55 L, Hgb 11.2 L, Hct 35.0 L, MCV 98.8 H, MCH 31.7 H, MCHC 32.1, RDW 16.7, Plt Count 78 L, MPV 9.4, Neut % (Auto) 63.2, Lymph % (Auto) 19.2, [place] % (Auto) 7.9, Eos % (Auto) 9.1, Baso % (Auto) 0.6, Neut # (Auto) 2.9, Lymph # (Auto) 0.9, [place] # (Auto) 0.4, Eos # (Auto) 0.4, Baso # (Auto) 0.0 11/08/22 04:10: Sodium 133 L, Potassium 3.6, Chloride 103, Carbon Dioxide 28, Anion Gap 5.6, BUN 16 D, Creatinine 0.70, Estimated Creat Clear 215, Estimated GFR 120, Est GFR ( Amer) 145, Glucose 94, Calcium 7.5 L 11/08/22 04:10: Vancomycin Trough 30.3 H 11/08/22 10:30: Vancomycin Trough 22.9 H I & O for Last 24 hours: Intake & Output 11/05/22 11/06/22 11/07/22 11/08/22 23:59 23:59 23:59 23:59 Intake Total 840 / 840 1370 / 1370 Output Total 450 / 450 0 / 0 Balance 390 / 390 1370 / 1370 Weight 118.898 kg 121.88 kg Microbiology Reports for the Last 24 Hours: Microbiology 11/08/22 01:15 Anus CRE Surveillance Culture - Final Constitutional Constitutional: no acute distress, obese, chronically
--- NOTE | 2022-11-08 12:00 | EXP.PHA.CONS ---
Pharmacy Consult Date: 11/08/22 Time: 12:01 Referring provider: DR. GONZALEZ Reason for Consult:: VANCOMYCIN LEVELS Allergies Allergy/AdvReac Type Severity Reaction Status Date / Time codeine Allergy Severe Anaphylaxis Verified 09/27/22 13:53 guaifenesin [From Mucinex] Allergy Severe SWELLS Verified 09/27/22 13:53 ketorolac [From Toradol] Allergy Severe Difficulty Verified 09/27/22 13:53 Swallowing sulfamethoxazole AdvReac Intermediate Rash Verified 09/27/22 13:53 [From Bactrim] trimethoprim [From Bactrim] AdvReac Intermediate Rash Verified 09/27/22 13:53 Home Medications Medication Instructions Recorded Confirmed Type albuterol sulfate 90 mcg/actuation 2 inh inhalation QID PRN Shortness 07/09/22 11/07/22 History aerosol inhaler (ProAir HFA) Of Breath ascorbic acid (vitamin C) 500 mg 500 mg PO BID Supplement 11/07/22 11/07/22 History tablet (Vitamin C) gabapentin 600 mg tablet 600 mg PO BID Pain 11/07/22 11/07/22 History polysaccharide iron complex 150 mg 150 mg PO BID Supplement 11/07/22 11/07/22 History iron capsule (Ferrex) thiamine mononitrate (vit B1) 100 100 mg PO DAILY Supplement 11/07/22 11/07/22 History mg tablet New Prescriptions to Start Prescriptions: Height: 1.75 m Weight: 121.88 kg Laboratory Results:: Laboratory Results - last 24 hr 11/08/22 04:10: WBC 4.5 L D, RBC 3.55 L, Hgb 11.2 L, Hct 35.0 L, MCV 98.8 H, MCH 31.7 H, MCHC 32.1, RDW 16.7, Plt Count 78 L, MPV 9.4, Neut % (Auto) 63.2, Lymph % (Auto) 19.2, [place] % (Auto) 7.9, Eos % (Auto) 9.1, Baso % (Auto) 0.6, Neut # (Auto) 2.9, Lymph # (Auto) 0.9, [place] # (Auto) 0.4, Eos # (Auto) 0.4, Baso # (Auto) 0.0 11/08/22 04:10: Sodium 133 L, Potassium 3.6, Chloride 103, Carbon Dioxide 28, Anion Gap 5.6, BUN 16 D, Creatinine 0.70, Estimated Creat Clear 215, Estimated GFR 120, Est GFR ( Amer) 145, Glucose 94, Calcium 7.5 L 11/08/22 04:10: Vancomycin Trough 30.3 H 11/08/22 10:30: Vancomycin Trough 22.9 H Medical History: Medical History (Updated 11/07/22 @ 05:22 by MAURO Watson) Atrial fibrillation Chronic pain Cirrhosis COPD (chronic obstructive pulmonary disease) Hypertension Assessment and Plan Assessment and plan all Dx Assessment and Plan for all problems:: VANCOMYCIN LEVELS WERE 30.3 MCG/ML AND 22.9 MCG/ML AT 8 HOURS AND 15 HOURS POST INFUSION AT VANCOMYCIN 2 GM Q8H. DOSE WAS HELD SINCE LAST NIGHT. SWITCHING TO ZYVOX.
--- NOTE | 2022-11-09 13:45 | CARE MANAGER ---
Attempted post-discharge phone interview, no answer.
== END 2022-11-08 15:40 | disposition home or self-care (01) ==
LOC: ER 03:26 → 2ND 04:27
PROVIDERS: Internal Medicine Adolescent Medicine; Nurse Practitioner Acute Care; Admitting Provider Student in an Organized Health Care Education/Training Program; Emergency Provider Emergency Medicine; PCP Family Medicine; Visit Provider Student in an Organized Health Care Education/Training Program
DX: L03.116 Cellulitis of left lower limb (principal); Z79.899 Other long term (current) drug therapy; I48.91 Unspecified atrial fibrillation; J44.9 Chronic obstructive pulmonary disease, unspecified; I11.0 Hypertensive heart disease with heart failure; F17.290 Nicotine dependence, other tobacco product, uncomplicated; F15.10 Other stimulant abuse, uncomplicated; I50.20 Unspecified systolic (congestive) heart failure; Z20.822 Contact with and (suspected) exposure to COVID-19
CPT/HCPCS: G0378; 36415; 71046; 71275; 73701; 80048; 80053; 80202; 80305; 81001; 82803; 83605; 84484; 85007; 85025; 85651; 86140; 87040; 87077; 87081; 93005; 94640; 99285; C9803; J0131; J1956; J2020; J2543; J3370; Q9967; U0003; U0005

== ENCOUNTER 2022-12-15 11:41 | Emergency (ER) | payer MEDICARE, OTHER, SELFPAY ==
--- NOTE | 2022-12-15 11:45 | ECG_ITS ---
APPROVED REPORT Exam: Resting ECG HR:98 bpm ECG Measurements Heart Rate 98 AXES ND 151 P 52 QRSd 115 QRS 65 QT 367 T 72 QTc 422 Conclusion SINUS RHYTHM POSSIBLE INFERIOR MYOCARDIAL INFARCTION , PROBABLY OLD [30 ms Q WAVE IN II/aVF] PROBABLE ANTEROLATERAL MYOCARDIAL INFARCTION , OF INDETERMINATE AGE [35 ms Q WAVE IN I/aVL/V3-V6] ABNORMAL ECG UNCONFIRMED REPORT Electronically signed by : Wilfredo Muñoz MD 12/15/2022 21:21:03
[2022-12-15 11:47] VITALS: BP 173/101; PULSE 96; RESP 18; O2SAT 99
--- NOTE | 2022-12-15 11:48 | XR_ITS ---
FINAL REPORT CLINICAL HISTORY: Shortness of breath COMPARISON: 11/07/2022 FINDINGS: There is mild cardiomegaly. The mediastinum is normal. There is no focal infiltrate or edema. There are chronic changes at the lung bases, stable. There are no pleural effusions. There is no pneumothorax. There is no osseous abnormality. IMPRESSION: No acute cardiopulmonary process Reviewed, Interpreted and Dictated by Joe Benavidez MD Transcribed by Nidhi Pineda Authenticated and [facility]
[2022-12-15 11:49] VITALS: BP 179/89; PULSE 101; RESP 20; TEMP 36.8; O2SAT 99; BMI 42.5
[2022-12-15 12:01] VITALS: BP 167/89; PULSE 86; RESP 18; O2SAT 98
--- NOTE | 2022-12-15 12:10 | PC.NURSE ---
respiratory called asking about q1 treatment comfired with dr grimaldo it just a 1 time treatment
--- NOTE | 2022-12-15 12:15 | PC.NURSE ---
rad at bedside
--- NOTE | 2022-12-15 12:28 | HMH.EDGENADL ---
Discharge Plan Disposition Patient Disposition: Home, Self-Care Prescriptions Prescriptions: New doxycycline hyclate 100 mg capsule 100 mg PO BID Qty: 14 0RF prednisone 50 mg tablet 50 mg PO DAILY 5 Days Qty: 5 0RF albuterol sulfate 90 mcg/actuation HFA aerosol inhaler 1 inh inhalation Q6H PRN (Reason: shortness of breath or wheezing) Qty: 8.5 0RF albuterol sulfate 1.25 mg/3 mL solution for nebulization 1.25 mg inhalation TID 10 Days Qty: 90 0RF No Action ondansetron 4 mg tablet,disintegrating 4 mg PO DAILY buprenorphine-naloxone 8-2 mg tablet, sublingual 1 tab sublingual DAILY Label Comments: dissolve 2 tablets under the tongue once a day as directed naloxone 4 mg/actuation spray,non-aerosol 1 spray intranasal ONCE albuterol sulfate [ProAir HFA] 90 mcg/actuation HFA aerosol inhaler 2 inh INHALATION QID PRN (Reason: Shortness Of Breath) Qty: 8.5 3RF Rx Instructions: please provide spacer mupirocin 2 % ointment 1 applic topical TID Qty: 22 5RF polysaccharide iron complex [Ferrex 150] 150 mg iron capsule 150 mg PO BID ascorbic acid (vitamin C) [Vitamin C] 500 mg tablet 500 mg PO BID thiamine mononitrate (vit B1) 100 mg tablet 100 mg PO DAILY furosemide 40 mg Tablet 40 mg PO DAILY 30 Days Qty: 30 0RF carvedilol 3.125 mg Tablet 3.125 mg PO BID 30 Days Qty: 60 0RF linezolid 600 mg tablet 600 mg PO BID 6 Days Qty: 12 0RF Referrals Follow up/Referrals: Louie Resendez MD [Primary Care Provider] - See instructions Activity Restrictions/Add. Instructions Additional Instructions/Restrictions: Return for worsening difficulty breathing cough or any other concerns within the next 8 hours otherwise follow-up with your primary care physician within the next few days Clinical Impressions Clinical Impression: Acute exacerbation of chronic obstructive pulmonary disease Discharge ED Provider: Melvin Solorio General Adult HPI General Chief complaint: Shortness of Breath/Dyspnea Stated complaint: soa Time Seen by Provider: 12/15/22 12:00 Mode of Arrival: EMS Source of Information: Patient and EMS Limitations: No Limitations Description of Symptoms (Recalled from ER Triage Doc. by RN): pt to ed c/o SOA and abd pain. pt states he was being seen at pcp office and had been generally more short of air. per ems, pcp office gave duo neb in the office. pt reports a hx of chirrosis and states he takes lactulose. History of Present Illness HPI narrative: 47-year-old male with history of CHF COPD presents with shortness of air and abdominal pain he was at his primary care physician today and began having worsening shortness of air. Given DuoNeb and office with some improvement. He has history of cirrhosis and takes lactulose as well concerned that he may have hepatic encephalopathy. No fever chills nausea vomiting diarrhea. Related Data Home Medications Medication Instructions Recorded Confirmed ascorbic acid (vitamin C) 500 mg 500 mg PO BID Supplement 11/07/22 12/15/22 tablet (Vitamin C) polysaccharide iron complex 150 mg 150 mg PO BID Supplement 11/07/22 12/15/22 iron capsule (Ferrex) thiamine mononitrate (vit B1) 100 100 mg PO DAILY Supplement 11/07/22 12/15/22 mg tablet buprenorphine 8 mg-naloxone 2 mg 1 tab sublingual DAILY 12/15/22 12/15/22 sublingual tablet naloxone 4 mg/actuation nasal spray 1 spray intranasal ONCE 12/15/22 12/15/22 ondansetron 4 mg disintegrating 4 mg PO DAILY 12/15/22 12/15/22 tablet Previous Rx's Medication Instructions Recorded carvedilol 3.125 mg tablet 3.125 mg PO BID 30 days #60 tabs 11/08/22 furosemide 40 mg tablet 40 mg PO DAILY 30 days #30 tabs 11/08/22 linezolid 600 mg tablet 600 mg PO BID 6 days #12 tabs 11/08/22 albuterol sulfate 90 mcg/actuation 2 inh inhalation QID PRN Shortness 11/22/22 aerosol inhaler (ProAir HFA) Of Breath #8.5 grams mupirocin 2 % topical ointment 1 applic topical TID #22 grams 11/22/22 albuterol sulfate 1.25 mg/3 mL 1.25 mg (3 mL) inhalation TID 10 12/15/22 solution for nebulization days #90 mL albuterol sulfate 90 mcg/actuation 1 inh inhalation Q6H PRN shortness 12/15/22 aerosol inhaler of breath or wheezing #8.5 grams doxycycline hyclate 100 mg capsule 100 mg PO BID #14 caps 12/15/22 prednisone 50 mg tablet 50 mg PO DAILY 5 days #5 tabs 12/15/22 Allergies Allergy/AdvReac Type Severity Reaction Status Date / Time codeine Allergy Severe Anaphylaxis Verified 12/15/22 10:37 guaifenesin [From Mucinex] Allergy Severe SWELLS Verified 12/15/22 10:37 ketorolac [From Toradol] Allergy Severe Difficulty Verified 12/15/22 10:37 Swallowing sulfamethoxazole AdvReac Intermediate Rash Verified 12/15/22 10:37 [From Bactrim] trimethoprim [From Bactrim] AdvReac Intermediate Rash Verified 12/15/22 10:37 PFSH [facility] Disclaimer: The information contained in this section may have been updated after the patient was seen, as this information can be updated by other users. Medical History Atrial fibrillation Chronic pain Cirrhosis COPD (chronic obstructive pulmonary disease) Hypertension Surgical History S/P TIPS (transjugular intrahepatic portosystemic shunt) Family History Other Heart disease Social History Smoking Status: Never smoker second hand exposure: Yes alcohol intake: former substance use type: crack/cocaine and methamphetamine current occupational status: disabled Travel in the last 8 weeks: None household members: friend(s) housing: house current occupation: unknown current occupational exposures/hazards: No caffeine: Yes ROS Obtained: Yes All systems reviewed & no additional complaints except as documented Constitutional Constitutional: Denies fever(s) Eyes Eyes: Denies dry eyes ENT Ears, Nose, Mouth, and Throat: Denies dizziness Cardiovascular Cardiovascular: Denies dyspnea Respiratory Respiratory: Denies dyspnea and Denies wheezing Gastrointestinal Gastrointestingal: Denies coffee ground emesis Genitourinary Male Genitourinary: Denies flank pain Musculoskeletal Musculoskeletal: Denies joint swelling Integumentary/Breasts Skin/Breast: Denies redness and Denies rash Neurologic Neurologic: Denies dizziness Endocrine Endocrine: Denies flushing Hematologic/Lymphatic Henatologic/Lymphatic: Denies easy bruising Allergic/Immunologic Allergic/Immunologic: Denies urticaria and Denies wheezing Physical Exam General General appearance: alert and in no apparent distress Eye Eye exam: Present PERRL and EOMI ENT ENT exam: Present normal exam and normal oropharynx Neck Neck exam: Present normal inspection Chest Chest inspection: Present symmetric chest wall rise Respiratory Respiratory exam: Present other (Bilateral lung wheezing); Absent respiratory distress Cardiovascular Cardiovascular exam: Present regular rate and normal rhythm Abdominal Exam Abdominal exam: Present soft; Absent distention, tenderness, guarding, rebound, Engel's sign or tenderness at McBurney's Point Rectal Exam Rectal exam: Present deferred Back Exam Back exam: Present normal inspection Neurological Exam Neurological exam: Present alert and oriented X3 Psychiatric Psychiatric exam: Present normal affect and normal mood Skin Skin exam: Present warm, dry and intact Lymphatic Lymphatic Findings: no adenopathy Medical Decision Making Medical Records Medical records reviewed: Yes I reviewed the patient's medical records. Joshua Inquiry Pt receiving controlled substance: No Joshua was queried for this patient: No Vital Signs: 12/15/22 11:49 12/15/22 11:47 12/15/22 12:01 Temperature 98.2 F Temperature Source Oral Pulse Rate 96 H 86 Pulse Rate [Left Radial] 101 H Respiratory Rate 20 18 18 Blood Pressure 173/101 H 167/89 H Blood Pressure [Right Arm] 179/89 H Blood Pressure Mean 126 122 Blood Pressure Mean [Right Arm] 119 02 Sat by Pulse Oximetry 99 99 98 Oxygen Delivery Method Room Air 12/15/22 13:10 12/15/22 13:10 12/15/22 14:56 Temperature 98.2 F Temperature Source Oral Pulse Rate 95 H 97 H 90 Pulse Rate [Left Radial] Respiratory Rate 20 Blood Pressure 164/80 H Blood Pressure [Right Arm] Blood Pressure Mean Blood Pressure Mean [Right Arm] 02 Sat by Pulse Oximetry Oxygen Delivery Method Room Air Lab Data Lab Results 12/15/22 12:29: Ammonia 139 H 12/15/22 12:31: WBC 3.7 L, RBC 3.37 L, Hgb 10.8 L, Hct 34.0 L, MCV 100.9 H, MCH 32.1 H, MCHC 31.8, RDW 16.7, Plt Count 75 L, MPV 7.5, Neut % (Auto) 68.7, Lymph % (Auto) 19.2, Park % (Auto) 8.3, Eos % (Auto) 3.6, Baso % (Auto) 0.2, Neut # (Auto) 2.6, Lymph # (Auto) 0.7, [place] # (Auto) 0.3, Eos # (Auto) 0.1, Baso # (Auto) 0.0 12/15/22 12:31: Sodium 135 L, Potassium 3.6, Chloride 94 L, Carbon Dioxide 34 H, Anion Gap 10.6, BUN 11, Creatinine 0.50 L, Estimated Creat Clear 179, Estimated GFR 177, Est GFR ( Amer) 214, Glucose 92, Calcium 7.7 L, Magnesium 1.5 L, Total Bilirubin 1.7 H, AST 81 H, ALT 43, Alkaline Phosphatase 230 H, Troponin I 0.03, Total Protein 7.3, Albumin 2.9 L, Globulin 4.4 H, Albumin/Globulin Ratio 0.7 L 12/15/22 12:36: VBG pH 7.41, VBG pCO2 45.5, VBG pO2 102.6 H, VBG HCO3 28.0, VBG Total CO2 29.4 H, VBG O2 Saturation 97.7 H, VBG Base Excess 3.3 H Result diagrams: 12/15/22 12:31 12/15/22 12:31 Orders (Tests/Meds): ED MEDICATIONS Discontinued Medications Generic Name Dose Route Start Last Admin Trade Name Freq PRN Reason Stop Dose Admin Albuterol Sulfate 2.5 mg 12/15/22 13:44 12/15/22 13:51 Albuterol 0.083% 2.5 Mg/3 Ml [facility] 12/15/22 13:45 2.5 mg ONCE ONE Administration Albuterol/Ipratropium 3 ml 12/15/22 12:00 12/15/22 13:12 Ipratropium/Albuterol 3 Ml [facility] 01/14/23 11:59 Not Given Q1H CJ Dexamethasone Sodium Phosphate 8 mg 12/15/22 11:48 12/15/22 13:51 Dexamethasone 4mg/Ml 1ml Vial IV 12/15/22 11:49 8 mg ONCE ONE Administration Magnesium Sulfate 2 gm in 50 mls @ 50 mls/hr 12/15/22 13:26 12/15/22 13:38 Magnesium Sulfate 2gm/50ml Premix IV 12/15/22 14:25 Not Given ONCE ONE Magnesium Oxide 400 mg 12/15/22 13:49 12/15/22 13:50 Magnesium Oxide 400mg Tablet PO 12/15/22 13:50 400 mg ONCE ONE Administration ORDERS Category Date Time Status Chest XR -- portable [XR chest portable] Stat Exams 12/15/22 11:48 Completed Ammonia Stat Lab 12/15/22 12:29 Completed Complete Blood Count Auto Diff Stat Lab 12/15/22 12:31 Completed Comprehensive Metabolic Panel Stat Lab 12/15/22 12:31 Completed Magnesium Stat Lab 12/15/22 12:31 Completed Trop I [Troponin I] Stat Lab 12/15/22 12:31 Completed Venous Blood Gas Stat RT 12/15/22 12:36 Completed ECG initial Besson Routine Y 12/15/22 11:45 Completed Medical Decision Narrative: 47-year-old male presents with difficulty breathing. He has known COPD and history and exam consistent with COPD exacerbation. Given dexamethasone and DuoNebs in the emergency department. Chest x-ray pending for evaluation of superimposed pneumonia. Less likely to be tamponade pulmonary edema myocardial infarction pulmonary embolism or dissection. He is awake and alert as well, less likely to be hepatic encephalopathy. Chest x-ray otherwise clear, VBG improved. On exam he is markedly improved comfortable on room air. Plan to discharge home with treatment for COPD exacerbation and give prescription for outpatient nebulizer machine Critical Care Time Critical Care Time Critical Care Time: No Attestation: On 12/15/22, the high probability of a clinically significant, sudden or life threatening deterioration of the following system(s) required my full and direct attention, intervention and personal management. The time I documented below is in addition to time spent performing reported procedures but includes the following listed in this critical care notation.
--- NOTE | 2022-12-15 12:40 | PC.NURSE ---
rounded on pt no complaints, at bs
[2022-12-15 12:44] LABS: VBG Base Excess 3.3 mmol/L (-2.4-2.3); VBG Oxygen Saturation 97.7 % (50-70); VBG PCO2 45.5 mmol/L (35-51); VBG PH 7.41 mmol/L (7.31-7.41); VBG PO2 102.6 mmol/L (28-40); VBG Total CO2 29.4 mmol/L (23-27)
[2022-12-15 12:47] LABS: Basophils % 0.2 % (0.1-2.0); Eosinophils # 0.1 K/mm3 (0.0-0.4); Eosinophils % 3.6 % (0.1-12.0); Hemoglobin 10.8 g/dL (14.1-18.0); Lymphocytes # 0.7 K/mm3 (0.7-4.5); Lymphocytes % 19.2 % (10-50); Mean Corpuscular HGB Conc 31.8 g/dL (31.8-35.4); Mean Corpuscular Hemoglobin 32.1 pg (27.0-31.2); Mean Corpuscular Volume 100.9 fl (80-94); Mean Platelet Volume 7.5 fl (7.4-10.4); Monocytes # 0.3 K/mm3 (0.1-1.0); Monocytes % 8.3 % (1.7-9.3); Neutrophils # 2.6 K/mm3 (1.8-7.8); Neutrophils % 68.7 % (37.0-80.0); Platelet Count 75 K/mm3 (142-424); Red Blood Count 3.37 M/mm3 (4.60-6.20); Red Cell Distribution Width 16.7 % (11.5-17.5); White Blood Count 3.7 K/mm3 (4.8-10.8)
[2022-12-15 12:49] LABS: Chloride 94 mmol/L (98-107); Potassium 3.6 mmoL/L (3.5-5.1); Sodium 135 mmol/L (136-145)
[2022-12-15 12:51] LABS: Alanine Aminotransferase 43 U/L (12-78); Aspartate Amino Transferase 81 U/L (17-59); Blood Urea Nitrogen 11 mg/dl (9-20); Creatinine Clearance Estimated 179 mL/min (50-200); Estimated Glomerular Filt Rate 177 ml/min (>60); GFR (African American) 214 ML/MIN (>60)
[2022-12-15 12:52] LABS: Albumin Level 2.9 g/dl (3.5-5.0); Albumin/Globulin Ratio 0.7 (1.1-1.8); Alkaline Phosphatase 230 U/L (38-126); Anion Gap 10.6 mEq/L (5-15); Bilirubin,Total 1.7 mg/dl (0.2-1.3); Calcium 7.7 mg/dl (8.4-10.2); Carbon Dioxide 34 mmol/L (22.0-30.0); Globulin 4.4 g/dL (1.3-3.2); Glucose 92 mg/dl (74-100); Magnesium 1.5 mg/dl (1.6-2.3); Total Protein,Serum 7.3 g/dl (6.3-8.2)
[2022-12-15 12:52] LABS: Ammonia 139 umol/L (9-30)
[2022-12-15 13:03] LABS: Troponin I 0.03 ng/ml (0.00-0.034)
[2022-12-15] MEDS: IPRATROPIUM/ALBUTEROL 3 ML NEB IH (13:09)
[2022-12-15 13:10] VITALS: PULSE 95; PULSE 97
[2022-12-15] MEDS: MAGNESIUM OXIDE 400MG TABLET 400 MG PO (13:50)
[2022-12-15] MEDS: ALBUTEROL 0.083% 2.5 MG/3 ML NEB IH (13:51)
[2022-12-15] MEDS: DEXAMETHASONE 4MG/ML 1ML VIAL 8 MG IV (13:51)
--- NOTE | 2022-12-15 13:53 | PC.NURSE ---
rounded on pt no complaints at this time, calling his ride bc pt is ready for discharge, call light at bs
[2022-12-15 14:56] VITALS: BP 164/80; PULSE 90; RESP 20; TEMP 36.8; O2SAT 99
== END 2022-12-15 14:57 | disposition home or self-care (01) ==
PROVIDERS: Emergency Provider Emergency Medicine; PCP Emergency Medicine
DX: J44.1 Chronic obstructive pulmonary disease with (acute) exacerbation (principal)
CPT/HCPCS: 71045; 80053; 82140; 82803; 83735; 84484; 85025; 93005; 96374; 96375; 99285

== ENCOUNTER 2023-07-21 01:47 | Emergency (ER) | payer MEDICARE, OTHER, SELFPAY ==
[2023-07-21 01:47] VITALS: BP 154/96; PULSE 87; RESP 20; TEMP 36.7; O2SAT 95; BMI 35.4
--- NOTE | 2023-07-21 01:56 | HMH.EDGENADL ---
Discharge Plan Disposition Patient Disposition: Home, Self-Care Condition: Good Chief Complaint: Urogenital-Male Prescriptions Prescriptions: No Action ondansetron 4 mg tablet,disintegrating 4 mg PO DAILY buprenorphine-naloxone 8-2 mg tablet, sublingual 1 tab sublingual DAILY Patient Comments: dissolve 2 tablets under the tongue once a day as directed naloxone 4 mg/actuation spray,non-aerosol 1 spray intranasal ONCE albuterol sulfate [ProAir HFA] 90 mcg/actuation HFA aerosol inhaler 2 inh INHALATION QID PRN (Reason: Shortness Of Breath) Qty: 8.5 3RF Rx Instructions: please provide spacer mupirocin 2 % ointment 1 applic topical TID Qty: 22 5RF polysaccharide iron complex [Ferrex 150] 150 mg iron capsule 150 mg PO BID ascorbic acid (vitamin C) [Vitamin C] 500 mg tablet 500 mg PO BID thiamine mononitrate (vit B1) 100 mg tablet 100 mg PO DAILY furosemide 40 mg Tablet 40 mg PO DAILY 30 Days Qty: 30 0RF carvedilol 3.125 mg Tablet 3.125 mg PO BID 30 Days Qty: 60 0RF linezolid 600 mg tablet 600 mg PO BID 6 Days Qty: 12 0RF doxycycline hyclate 100 mg capsule 100 mg PO BID Qty: 14 0RF prednisone 50 mg tablet 50 mg PO DAILY 5 Days Qty: 5 0RF albuterol sulfate 90 mcg/actuation HFA aerosol inhaler 1 inh inhalation Q6H PRN (Reason: shortness of breath or wheezing) Qty: 8.5 0RF albuterol sulfate 1.25 mg/3 mL solution for nebulization 1.25 mg inhalation TID 10 Days Qty: 90 0RF Clinical Impressions Clinical Impression: Urinary incontinence, overflow Instructions Patient Instructions: Urinary Incontinence -- Male Discharge ED Provider: Jessica Boyd General Adult HPI General Chief complaint: Urogenital-Male Stated complaint: Bladder Incontience Time Seen by Provider: 07/21/23 01:50 History of Present Illness HPI narrative: Patient has a PMHx significant for JOEL with meth, HFrEF, cirrhosis, COPD, venous stasis with cellulitis, HTN who presents to the ED with complaints of urinary incontinence. Patient was reportedly admitted to an outside hospital facility, [facility], for the past 2 weeks where he was being treated for a pneumonia and cellulitis of the left lower extremity with IV antibiotics. According to the outside hospital sample preparation supervisor, the patient was violent in numerous locations throughout his hospitalization, required restraints multiple times, and this morning ripped his [place] catheter out and left AMA. Since leaving the hospital, patient notes that he has been having groin pain and urinary incontinence with multiple episodes of incontinence on himself. Patient decided call EMS. On arrival to the ED, patient was covered in urine. Related Data Home Medications Medication Instructions Recorded Confirmed ascorbic acid (vitamin C) 500 mg 500 mg PO BID Supplement 11/07/22 12/15/22 tablet (Vitamin C) polysaccharide iron complex 150 mg 150 mg PO BID Supplement 11/07/22 12/15/22 iron capsule (Ferrex) thiamine mononitrate (vit B1) 100 100 mg PO DAILY Supplement 11/07/22 12/15/22 mg tablet buprenorphine 8 mg-naloxone 2 mg 1 tab sublingual DAILY 12/15/22 12/15/22 sublingual tablet naloxone 4 mg/actuation nasal spray 1 spray intranasal ONCE 12/15/22 12/15/22 ondansetron 4 mg disintegrating 4 mg PO DAILY 12/15/22 12/15/22 tablet Previous Rx's Medication Instructions Recorded carvedilol 3.125 mg tablet 3.125 mg PO BID 30 days #60 tabs 11/08/22 furosemide 40 mg tablet 40 mg PO DAILY 30 days #30 tabs 11/08/22 linezolid 600 mg tablet 600 mg PO BID 6 days #12 tabs 11/08/22 albuterol sulfate 90 mcg/actuation 2 inh inhalation QID PRN Shortness 11/22/22 aerosol inhaler (ProAir HFA) Of Breath #8.5 grams mupirocin 2 % topical ointment 1 applic topical TID #22 grams 11/22/22 albuterol sulfate 1.25 mg/3 mL 1.25 mg (3 mL) inhalation TID 10 12/15/22 solution for nebulization days #90 mL al
--- NOTE | 2023-07-21 02:06 | PC.NURSE ---
Pt stated he needed to pee. Pt advised he needed urinal. Pt given urinal and voided 275 ml. Bladder scan completed afterwards and showed 47 ml urine in bladder. MD notified.
--- NOTE | 2023-07-21 02:08 | PC.NURSE ---
Called [facility] and spoke to hospital housekeeper to obtain discharge summary. She stated they were unable to send those records at this time because patient had left AMA earlier this evening, and that his chart was incomplete. Attending notified in ED
--- NOTE | 2023-07-21 02:21 | PC.NURSE ---
Pt left lower leg wound cleansed, vaseline gauze applied, non adherent gauze, and curlex wrap applied
[2023-07-21 03:08] LABS: Basophils % 0.2 % (0.1-2.0); Eosinophils # 0.3 K/mm3 (0.0-0.4); Eosinophils % 3.8 % (0.1-12.0); Hematocrit 35.5 % (42.0-52.0); Hemoglobin 11.2 g/dL (14.1-18.0); Lymphocytes # 0.9 K/mm3 (0.7-4.5); Lymphocytes % 10.5 % (10-50); Mean Corpuscular HGB Conc 31.6 g/dL (31.8-35.4); Mean Corpuscular Volume 98.2 fl (80-94); Mean Platelet Volume 8.7 fl (7.4-10.4); Monocytes # 0.9 K/mm3 (0.1-1.0); Monocytes % 10.3 % (1.7-9.3); Neutrophils # 6.6 K/mm3 (1.8-7.8); Neutrophils % 75.3 % (37.0-80.0); Platelet Count 117 K/mm3 (142-424); Red Blood Count 3.61 M/mm3 (4.60-6.20); Red Cell Distribution Width 17.2 % (11.5-17.5); White Blood Count 8.8 K/mm3 (4.8-10.8)
[2023-07-21 03:13] LABS: Alanine Aminotransferase 58 U/L (12-78); Albumin Level 2.2 g/dl (3.5-5.0); Albumin/Globulin Ratio 0.4 (1.1-1.8); Alkaline Phosphatase 287 U/L (38-126); Anion Gap 1.7 mEq/L (5-15); Aspartate Amino Transferase 84 U/L (17-59); Bilirubin,Total 1.4 mg/dl (0.2-1.3); Blood Urea Nitrogen 12 mg/dl (9-20); Calcium 7.5 mg/dl (8.4-10.2); Carbon Dioxide 39 mmol/L (22.0-30.0); Chloride 100 mmol/L (98-107); Creatinine Clearance Estimated 227 mL/min (50-200); Estimated Glomerular Filt Rate 143 ml/min (>60); GFR (African American) 173 ML/MIN (>60); Globulin 5.3 g/dL (1.3-3.2); Glucose 122 mg/dl (74-100); Potassium 3.7 mmoL/L (3.5-5.1); Sodium 137 mmol/L (136-145); Total Protein,Serum 7.5 g/dl (6.3-8.2)
[2023-07-21 04:18] VITALS: BP 164/78; PULSE 87; RESP 18; TEMP 36.6; O2SAT 98
--- NOTE | 2023-07-21 04:19 | PC.NURSE ---
Upon DC pt request to speak with MD to ask him about sending in some prescriptions for him because his leg is laid open.
== END 2023-07-21 04:18 | disposition home or self-care (01) ==
PROVIDERS: Emergency Provider Emergency Medicine
DX: R32 Unspecified urinary incontinence (principal); I11.0 Hypertensive heart disease with heart failure; I50.20 Unspecified systolic (congestive) heart failure; J44.9 Chronic obstructive pulmonary disease, unspecified; K74.60 Unspecified cirrhosis of liver; I48.91 Unspecified atrial fibrillation
CPT/HCPCS: 36415; 80053; 85025; 99283

== ENCOUNTER 2023-11-27 12:47 | Observation (INO) | payer MEDICARE, SELFPAY ==
[2023-11-27] VITALS (17 sets, daily range): BP systolic 119–160; BP diastolic 79–98; PULSE 66–116; RESP 15–25; TEMP 36.7–37.7; O2SAT 96–100; BMI 41.5; BMI 36.3
--- NOTE | 2023-11-27 12:48 | CT_ITS ---
FINAL REPORT TECHNIQUE: Axial CT images were performed through the head. Coronal reformatted images were submitted. This study was performed with techniques to keep radiation doses as low as reasonably achievable (ALARA). Individualized dose reduction techniques using automated exposure control or adjustment of mA and/or kV according to the patient's size were employed. CLINICAL HISTORY: difficulty speaking, FINDINGS: Exam is somewhat degraded by patient motion. There is mild atrophy, greater than expected for the patient's age. The ventricles are normal in size. There is no evidence of hemorrhage. There is no mass or edema identified. There is no abnormal extra-axial fluid seen. There is lobular mucoperiosteal thickening in the right maxillary sinus consistent with a retention cyst or polyp. IMPRESSION: No acute intracranial process. Atrophy greater than expected for the patient's age. Reviewed, Interpreted and Dictated by Joe Benavidez MD Transcribed by Meli Cordero Authenticated and [facility]
--- NOTE | 2023-11-27 12:48 | PC.NURSE ---
Dr. Navarrete at BS for pt eval
--- NOTE | 2023-11-27 12:53 | ECG_ITS ---
APPROVED REPORT Exam: Resting ECG HR:133 bpm ECG Measurements Heart Rate 133 AXES QRSd 114 QRS 35 QT 335 T 106 QTc 413 Conclusion ATRIAL FIBRILLATION WITH RAPID VENTRICULAR RESPONSE WITH ABERRANT CONDUCTION OR VENTRICULAR PREMATURE COMPLEXES MODERATE INTRAVENTRICULAR CONDUCTION DELAY [110+ ms QRS DURATION] NONSPECIFIC ST & T-WAVE ABNORMALITY ABNORMAL ECG UNCONFIRMED REPORT Electronically signed by : NOHEMI LANGSTON, 11/27/2023 16:13:57
--- NOTE | 2023-11-27 12:54 | CT_ITS ---
FINAL REPORT TECHNIQUE: NASCET technique utilized for stenosis evaluation. CLINICAL HISTORY: difficulty speaking FINDINGS: RIGHT CAROTID: No significant stenosis is seen of the cervical common or internal carotid artery. LEFT CAROTID: No significant stenosis seen of the cervical common or internal carotid artery. VERTEBRALS: The vertebrals are patent. No significant stenosis is present. IMPRESSION: No significant arterial abnormality. Reviewed, Interpreted and Dictated by Joe Benavidez MD Transcribed by Meli Cordero Authenticated and [facility]
--- NOTE | 2023-11-27 12:54 | CT_ITS ---
FINAL REPORT TECHNIQUE: thin section axial CT with and without IV contrast supplemented with multiplanar 3-D reconstruction of the head. This study was performed with techniques to keep radiation doses as low as reasonably achievable, (ALARA)individualized dose reduction techniques using automated exposure control or adjustment of mA and/or kV according to the patient's size were employed. CLINICAL HISTORY: difficulty with speech FINDINGS: The cranial circulation is unremarkable. There is no significant stenosis, aneurysm or occlusion. IMPRESSION: No acute process. Reviewed, Interpreted and Dictated by Joe Benavidez MD Transcribed by Meli Cordero Authenticated and [facility] [place]
--- NOTE | 2023-11-27 12:56 | CT_ITS ---
FINAL REPORT TECHNIQUE: After the administration of oral and intravenous contrast, axial images were obtained through the abdomen and pelvis by computed tomography. The study was performed with techniques to keep radiation dose as low as reasonably achievable, (ALARA). Individual dose reduction techniques using automated exposure control or adjustment of mA and/or kV according to the patient's size were employed. CLINICAL HISTORY: generalized abd pain FINDINGS: Abdomen: There is a small right pleural effusion. There is bibasilar atelectasis. There are advanced changes of cirrhosis. There appeared to be 2 TIPS stents present. The more posterior TIPS stent is in the expected position. There is a second, more anterior TIPS stent and the anterior portion of the stent body is external to the liver. This is well-seen on images 35 through 38. There is splenomegaly measuring 17 cm. The pancreas, and adrenal glands are unremarkable. The left kidney is unremarkable. There is a benign-appearing cyst in the right kidney measuring 3.6 cm. There is moderate edema throughout the abdomen and pelvic wall. There are a multitude of varices throughout the upper abdomen and retroperitoneum. Pelvis: The appendix is not identified. The urinary bladder is incompletely distended. There is no free fluid or adenopathy. IMPRESSION: Small right pleural effusion. Advanced changes of cirrhosis with splenomegaly. 2 TIPS stents with the more anterior TIPS stent extending anteriorly to the liver capsule. Reviewed, Interpreted and Dictated by Joe Benavidez MD Transcribed by Meli Cordero Authenticated and [facility]
[2023-11-27] MEDS: IPRATROPIUM/ALBUTEROL 3 ML NEB 9 ML IH (13:08)
[2023-11-27 13:12] LABS: Basophils % 0.6 % (0.1-2.0); Eosinophils # 0.1 K/mm3 (0.0-0.4); Eosinophils % 3.3 % (0.1-12.0); Hematocrit 34.7 % (42.0-52.0); Hemoglobin 10.7 g/dL (14.1-18.0); Lymphocytes # 1.1 K/mm3 (0.7-4.5); Lymphocytes % 26.3 % (10-50); Mean Corpuscular HGB Conc 30.8 g/dL (31.8-35.4); Mean Corpuscular Hemoglobin 30.7 pg (27.0-31.2); Mean Corpuscular Volume 99.8 fl (80-94); Mean Platelet Volume 8.7 fl (7.4-10.4); Monocytes # 0.3 K/mm3 (0.1-1.0); Monocytes % 5.8 % (1.7-9.3); Neutrophils # 2.7 K/mm3 (1.8-7.8); Platelet Count 181 K/mm3 (142-424); Red Blood Count 3.48 M/mm3 (4.60-6.20); Red Cell Distribution Width 17.7 % (11.5-17.5); White Blood Count 4.3 K/mm3 (4.8-10.8)
[2023-11-27 13:14] LABS: Chloride 112 mmol/L (98-107); Potassium 3.6 mmoL/L (3.5-5.1); Sodium 140 mmol/L (136-145)
[2023-11-27 13:17] LABS: Alanine Aminotransferase 35 U/L (12-78); Albumin Level 2.6 g/dl (3.5-5.0); Albumin/Globulin Ratio 0.5 (1.1-1.8); Alkaline Phosphatase 253 U/L (38-126); Anion Gap 2.6 mEq/L (5-15); Aspartate Amino Transferase 65 U/L (17-59); Bilirubin,Total 2.7 mg/dl (0.2-1.3); Blood Urea Nitrogen 10 mg/dl (9-20); Calcium 8.7 mg/dl (8.4-10.2); Carbon Dioxide 29 mmol/L (22.0-30.0); Creatinine Clearance Estimated 128 mL/min (50-200); Estimated Glomerular Filt Rate 143 ml/min (>60); GFR (African American) 173 ML/MIN (>60); Globulin 5.6 g/dL (1.3-3.2); Glucose 115 mg/dl (74-100); Lipase 44 U/L (23-300); Total Protein,Serum 8.2 g/dl (6.3-8.2)
[2023-11-27 13:20] LABS: Activated Partial Thrombo Time 29.1 seconds (22.8-30.6); Prothrombin Time 14.8 seconds (10.1-12.5)
[2023-11-27] MEDS: IOPAMIDOL-370 (76%);100ML BOTTLE 165 ML IV (13:44)
[2023-11-27] MEDS: 0.9 % SODIUM CHLORIDE 50 ML VIAL IV (13:44)
[2023-11-27 13:45] LABS: Lactic Acid 1.4 mmol/L (0.7-2.1); NT Pro Brain Natriuretic Pep. 685 pg/mL (0-125)
--- NOTE | 2023-11-27 14:20 | [facility].EDGENADL ---
Discharge Plan Disposition Patient Disposition: Admitted Chief Complaint: Neuro Symptoms/Deficit Prescriptions Prescriptions: No Action naloxone 4 mg/actuation spray,non-aerosol 1 spray intranasal ONCE albuterol sulfate [ProAir HFA] 90 mcg/actuation HFA aerosol inhaler 2 inh INHALATION QID PRN (Reason: Shortness Of Breath) Qty: 8.5 3RF Rx Instructions: please provide spacer gabapentin 600 mg tablet 600 mg PO BID lactulose 10 gram/15 mL solution 10 ml PO DAILY mupirocin 2 % ointment 1 applic topical TID Qty: 22 5RF levofloxacin 750 mg tablet 750 mg PO DAILY Qty: 7 0RF furosemide 40 mg Tablet 40 mg PO DAILY 30 Days Qty: 30 0RF carvedilol 3.125 mg Tablet 3.125 mg PO BID 30 Days Qty: 60 0RF linezolid 600 mg tablet 600 mg PO BID 6 Days Qty: 12 0RF albuterol sulfate 90 mcg/actuation HFA aerosol inhaler 1 inh inhalation Q6H PRN (Reason: shortness of breath or wheezing) Qty: 8.5 0RF albuterol sulfate 1.25 mg/3 mL solution for nebulization 1.25 mg inhalation TID 10 Days Qty: 90 0RF Referrals Follow up/Referrals: Provider,Referral, MD [Primary Care Provider] - See instructions Clinical Impressions Clinical Impression: Atrial fibrillation with rapid ventricular response, Word finding difficulty, Abdominal pain, Cirrhosis Discharge ED Provider: Jeremie Herring General Adult HPI <Khang Navarrete DO - Last Filed: 11/27/23 16:01> General Chief complaint: Neuro Symptoms/Deficit Stated complaint: Possible Stroke Time Seen by Provider: 11/27/23 12:48 Mode of Arrival: Ambulatory Source of Information: Patient Limitations: No Limitations Description of Symptoms (Recalled from ER Triage Doc. by RN): pt presents to ED with c/o stroke like symptoms. pt reports he has had confusion and disorientation for the past week. History of Present Illness HPI narrative: 48-year-old male with past medical history significant for, hypertension, hyperlipidemia, diabetes, heart failure, COPD, history of substance use, atrial fibrillation, presents today for evaluation concerning word finding difficulty. He states that his symptoms have been present and intermittent over the past week. He denies any numbness, tingling, weakness, facial droop, difficulty swallowing. Denies any chest pain or shortness of breath. No further complaints on assessment. Related Data Home Medications Medication Instructions Recorded Confirmed naloxone 4 mg/actuation nasal spray 1 spray intranasal ONCE 12/15/22 07/27/23 gabapentin 600 mg tablet 600 mg PO BID 07/27/23 07/27/23 lactulose 10 gram/15 mL oral 10 ml PO DAILY 07/27/23 07/27/23 solution Previous Rx's Medication Instructions Recorded carvedilol 3.125 mg tablet 3.125 mg PO BID 30 days #60 tabs 11/08/22 furosemide 40 mg tablet 40 mg PO DAILY 30 days #30 tabs 11/08/22 linezolid 600 mg tablet 600 mg PO BID 6 days #12 tabs 11/08/22 albuterol sulfate 90 mcg/actuation 2 inh inhalation QID PRN Shortness 11/22/22 aerosol inhaler (ProAir HFA) Of Breath #8.5 grams albuterol sulfate 1.25 mg/3 mL 1.25 mg (3 mL) inhalation TID 10 12/15/22 solution for nebulization days #90 mL albuterol sulfate 90 mcg/actuation 1 inh inhalation Q6H PRN shortness 12/15/22 aerosol inhaler of breath or wheezing #8.5 grams levofloxacin 750 mg tablet 750 mg PO DAILY #7 tabs 07/27/23 mupirocin 2 % topical ointment 1 applic topical TID #22 grams 07/27/23 Allergies Allergy/AdvReac Type Severity Reaction Status Date / Time codeine Allergy Severe Anaphylaxis Verified 07/27/23 10:52 guaifenesin [From Mucinex] Allergy Severe SWELLS Verified 07/27/23 10:52 ketorolac [From Toradol] Allergy Severe Difficulty Verified 07/27/23 10:52 Swallowing sulfamethoxazole AdvReac Intermediate Rash Verified 07/27/23 10:52 [From Bactrim] trimethoprim [From Bactrim] AdvReac Intermediate Rash Verified 07/27/23 10:52 [facility] <Khang Navarrete, - Last Filed: 11/27/23 16:01> [facility] Disclaimer: The information contained in this section may have been updated after the patient was seen, as this information can be updated by other users. Medical History Abnormal drug screen Acute exacerbation of chronic obstructive pulmonary disease Atrial fibrillation Chronic pain Cirrhosis COPD (chronic obstructive pulmonary disease) COPD (chronic obstructive pulmonary disease) COPD (chronic obstructive pulmonary disease) HFrEF (heart failure with reduced ejection fraction) Hypertension Left leg cellulitis Methamphetamine abuse Somnolence Tobacco abuse Urinary incontinence, overflow Venous stasis ulcers of both lower extremities Surgical History S/P TIPS (transjugular intrahepatic portosystemic shunt) Family History Other Heart disease Social History Smoking Status: Former smoker tobacco type: smokeless tobacco second hand exposure: Yes alcohol intake: former substance use type: crack/cocaine and methamphetamine current occupational status: disabled Travel in the last 8 weeks: None household members: friend(s) housing: house current occupation: unknown current occupational exposures/hazards: No caffeine: Yes <Khang Navarrete DO - Last Filed: 11/27/23 16:01> ROS Obtained: Yes All systems reviewed & no additional complaints except as documented Physical Exam <Khang Navarrete DO - Last Filed: 11/27/23 16:01> General General appearance: alert and in no apparent distress Head Head exam: atraumatic and normocephalic Eye Eye exam: Present normal appearance, PERRL and EOMI ENT ENT exam: Present normal oropharynx and mucous membranes moist Neck Neck exam: Present full ROM; Absent meningismus Respiratory Respiratory exam: Absent respiratory distress, wheezes, stridor or accessory muscle use Cardiovascular Cardiovascular exam: Present normal rhythm Abdominal Exam Abdominal exam: Present soft; Absent distention, tenderness, guarding, rebound or rigidity Neurological Exam Neurological exam: Present alert, oriented X3 and CN II-XII intact; Absent motor sensory deficit Psychiatric Psychiatric exam: Present normal affect and normal mood Skin Skin exam: Present warm and dry Medical Decision Making <DO Roland Le Last Filed: 11/27/23 16:01> Medical Records Medical records reviewed: Yes I reviewed the patient's medical records. Joshua Inquiry Pt receiving controlled substance: No Joshua was queried for this patient: No Vital Signs: 11/27/23 12:47 11/27/23 13:49 11/27/23 14:01 Temperature 98.3 F Temperature Source Oral Pulse Rate 98 H 116 H Pulse Rate [Left Radial] 66 Respiratory Rate 18 25 H Blood Pressure 135/95 H 139/98 H Blood Pressure [Right Arm] 160/97 H Blood Pressure Mean 105 Blood Pressure Mean [Right Arm] 118 02 Sat by Pulse Oximetry 96 99 100 Oxygen Delivery Method Room Air 11/27/23 14:31 11/27/23 15:03 11/27/23 15:31 Temperature Temperature Source Pulse Rate 112 H 66 66 Pulse Rate [Left Radial] Respiratory Rate 17 Blood Pressure 149/96 H 123/87 139/91 H Blood Pressure [Right Arm] Blood Pressure Mean 113 104 107 Blood Pressure Mean [Right Arm] 02 Sat by Pulse Oximetry 100 100 100 Oxygen Delivery Method 11/27/23 16:02 11/27/23 16:13 11/27/23 16:31 Temperature Temperature Source Pulse Rate 109 H 104 H Pulse Rate [Left Radial] Respiratory Rate 15 17 Blood Pressure 134/86 124/97 H 137/94 H Blood Pressure [Right Arm] Blood Pressure Mean 101 106 99 Blood Pressure Mean [Right Arm] 02 Sat by Pulse Oximetry 100 100 Oxygen Delivery Method 11/27/23 17:01 11/27/23 18:01 Temperature Temperature Source Pulse Rate 102 H 101 H Pulse Rate [Left Radial] Respiratory Rate 17 17 Blood Pressure 131/84 119/79 Blood Pressure [Right Arm] Blood Pressure Mean Blood Pressure Mean [Right Arm] 02 Sat by Pulse Oximetry 100 98 Oxygen Delivery Method Room Air Room Air Lab Data Lab Results 11/27/23 13:25: Lactate 1.4 11/27/23 15:49: Urine Color Yellow, Urine Appearance Clear, Urine pH 8.0, Ur Specific [place] 1.015, Urine Protein Negative, Urine Glucose (UA) Negative, Urine Ketones Negative, Urine Blood Trace-i, Urine Nitrate Negative, Urine Bilirubin Negative, Urine Urobilinogen 0.2, Ur Leukocyte Esterase Negative, Urine RBC Occasional, Urine WBC None, Ur Squamous Epith Cells Occasional, Urine Bacteria None 11/27/23 : WBC 4.3 L, RBC 3.48 L, Hgb 10.7 L, Hct 34.7 L, MCV 99.8 H, MCH 30.7, MCHC 30.8 L, RDW 17.7 H, Plt Count 181, MPV 8.7, Neut % (Auto) 64.0, Lymph % (Auto) 26.3, [place] % (Auto) 5.8, Eos % (Auto) 3.3, Baso % (Auto) 0.6, Neut # (Auto) 2.7, Lymph # (Auto) 1.1, [place] # (Auto) 0.3, Eos # (Auto) 0.1, Baso # (Auto) 0.0, PT 14.8 H, INR 1.40 H, APTT 29.1, Sodium 140, Potassium 3.6, Chloride 112 H, Carbon Dioxide 29, Anion Gap 2.6 L, BUN 10, Creatinine 0.60 L, Estimated Creat Clear 128, Estimated GFR 143, Est GFR ( Amer) 173, Glucose 115 H, Calcium 8.7, Total Bilirubin 2.7 H, AST 65 H, ALT 35, Alkaline Phosphatase 253 H, Troponin I 0.04 H, NT-Pro-B Natriuret Pep 685 H, Total Protein 8.2, Albumin 2.6 L, Globulin 5.6 H, Albumin/Globulin Ratio 0.5 L, Lipase 44 11/27/23 Unknown 11/27/23 Unknown Orders (Tests/Meds): ED MEDICATIONS Generic Name Dose Route Start Last Admin Trade Name Freq PRN Reason Stop Dose Admin Sodium Chloride 10 ml 11/27/23 13:13 Sodium Chloride 0.9% 10ml Flush Syringe IV 12/27/23 13:12 NEEDED PRN Maintain IV Site Sodium Chloride 10 ml 11/27/23 13:42 Sodium Chloride 0.9% 10ml Syr (Rad Only) IV 12/27/23 13:41 NEEDED PRN Maintain IV Site Discontinued Medications Generic Name Dose Route Start Last Admin Trade Name Freq PRN Reason Stop Dose Admin Albuterol/Ipratropium 9 ml 11/27/23 12:54 11/27/23 13:08 Ipratropium/Albuterol 3 Ml Neb IH 11/27/23 12:55 9 ml ONCE ONE Administration Iopamidol 165 ml 11/27/23 13:42 11/27/23 13:44 Iopamidol-370 (76%);100ml Bottle IV 11/27/23 13:43 165 ml ONCE ONE Administration Metoprolol Tartrate 5 mg 11/27/23 15:53 11/27/23 16:14 Metoprolol Tartrate 5mg/5ml Vial IV 11/27/23 15:54 5 mg ONCE ONE Administration Metoprolol Tartrate 5 mg 11/27/23 17:34 11/27/23 17:37 Metoprolol Tartrate 5mg/5ml Vial IV 11/27/23 17:35 5 mg ONCE ONE Administration Sodium Chloride 50 ml 11/27/23 13:42 11/27/23 13:44 0.9 % Sodium Chloride 50 Ml Vial IV 11/27/23 13:43 50 ml ONCE ONE Administration ORDERS Category Date Time Status CT abdomen pelvis w con Stat Cat Scan 11/27/23 12:[address] angio head Stat Cat Scan 11/27/23 12:[address] angio neck Stat Cat Scan 11/27/23 12:[address] head/brain wo con Stat Cat Scan 11/27/23 12:48 Completed Ammonia Stat Lab 11/27/23 18:19 Ordered BNP [NT Pro Brain Natriuretic Pep.] Stat Lab 11/27/23 Completed CBC w/Auto Diff [Complete Blood Count Auto Diff] Stat Lab 11/27/23 Completed CMP [Comprehensive Metabolic Panel] Stat Lab 11/27/23 Completed Lactic Acid Stat Lab 11/27/23 13:25 Completed Lipase Stat Lab 11/27/23 Completed PT INR [Prothrombin Time INR] Stat Lab 11/27/23 Completed PTT [Activated Partial Thrombo Time] Stat Lab 11/27/23 Completed Troponin I Q3H Lab 11/27/23 17:53 Received Troponin I Q3H Lab 11/27/23 20:15 Ordered Troponin I Stat Lab 11/27/23 Completed Urinalysis and Microscopic Stat Lab 11/27/23 15:49 Completed ECG Data Tracing #1: I reviewed this ECG and interpreted as documented below: EKG personally interpreted by me. Atrial fibrillation with a rate of 133 bpm. No ischemic changes. Medical Decision Narrative: 48-year-old male with past medical history significant for, hypertension, hyperlipidemia, diabetes, heart failure, COPD, history of substance use, atrial fibrillation, presents today for evaluation concerning word finding difficulty. He states that his symptoms have been present and intermittent over the past week. He denies any numbness, tingling, weakness, facial droop, difficulty swallowing. On assessment, he was medically stable and in no acute distress. Afebrile. Neurological exam was nonfocal. His speech was at his baseline however he stated that he was having difficulty finding which words he wanted to say. Chest clear to auscultation bilaterally. Abdomen soft and nondistended however was tender throughout. He stated that his tenderness has been present over the past week. Otherwise exam findings unremarkable. Differential diagnoses include not limited to CVA, TIA, dysrhythmia, electrolyte disturbance, SBP, among others. His lab workup today has been remarkable for a stable anemia with a hemoglobin of 10.7. Hematocrit of 34%. PT/INR 14.8/1.4. AST 65, alkaline phosphatase of 253. Initial troponin 0.04. BNP 685. I did order for CT imaging of the head and CTA head/neck. CT imaging of the head and CTA head/neck with no acute findings. He did not have any ascites noted on bedside ultrasound. CT imaging of the abdomen pelvis currently pending at this time. Patient was reassessed and remained medically stable and in no acute distress. He was able to converse with me without difficulty. Alert and oriented to person place time and situation. I discussed with him his current ED workup and current plan while awaiting CT results. Of note, patient's heart rate has been in the 120s-130s. He states that he is not on anticoagulation for his atrial fibrillation and does not know what medication he takes for rate control. On chart review, I did note that patient is on carvedilol 3.125 mg however no other beta-blockers. I did order for 5 mg of IV metoprolol to assist with rate control. At this time, care signed out to oncoming provider pending reassessment and CT imaging results. Also pending urinalysis. Patient at this time remains in no acute distress. <Jeremie Herring MD - Last Filed: 11/27/23 18:24> Vital Signs: 11/27/23 12:47 11/27/23 13:49 11/27/23 14:01 Temperature 98.3 F Temperature Source Oral Pulse Rate 98 H 116 H Pulse Rate [Left Radial] 66 Respiratory Rate 18 25 H Blood Pressure 135/95 H 139/98 H Blood Pressure [Right Arm] 160/97 H Blood Pressure Mean 105 Blood Pressure Mean [Right Arm] 118 02 Sat by Pulse Oximetry 96 99 100 Oxygen Delivery Method Room Air 11/27/23 14:31 11/27/23 15:03 11/27/23 15:31 Temperature Temperature Source Pulse Rate 112 H 66 66 Pulse Rate [Left Radial] Respiratory Rate 17 Blood Pressure 149/96 H 123/87 139/91 H Blood Pressure [Right Arm] Blood Pressure Mean 113 104 107 Blood Pressure Mean [Right Arm] 02 Sat by Pulse Oximetry 100 100 100 Oxygen Delivery Method 11/27/23 16:02 11/27/23 16:13 11/27/23 16:31 Temperature Temperature Source Pulse Rate 109 H 104 H Pulse Rate [Left Radial] Respiratory Rate 15 17 Blood Pressure 134/86 124/97 H 137/94 H Blood Pressure [Right Arm] Blood Pressure Mean 101 106 99 Blood Pressure Mean [Right Arm] 02 Sat by Pulse Oximetry 100 100 Oxygen Delivery Method 11/27/23 17:01 11/27/23 18:01 Temperature Temperature Source Pulse Rate 102 H 101 H Pulse Rate [Left Radial] Respiratory Rate 17 17 Blood Pressure 131/84 119/79 Blood Pressure [Right Arm] Blood Pressure Mean Blood Pressure Mean [Right Arm] 02 Sat by Pulse Oximetry 100 98 Oxygen Delivery Method Room Air Room Air Lab Data Lab results reviewed: Yes I reviewed the patient's lab results. Lab Results 11/27/23 13:25: Lactate 1.4 11/27/23 15:49: Urine Color Yellow, Urine Appearance Clear, Urine pH 8.0, Ur Specific [place] 1.015, Urine Protein Negative, Urine Glucose (UA) Negative, Urine Ketones Negative, Urine Blood Trace-i, Urine Nitrate Negative, Urine Bilirubin Negative, Urine Urobilinogen 0.2, Ur Leukocyte Esterase Negative, Urine RBC Occasional, Urine WBC None, Ur Squamous Epith Cells Occasional, Urine Bacteria None 11/27/23 : WBC 4.3 L, RBC 3.48 L, Hgb 10.7 L, Hct 34.7 L, MCV 99.8 H, MCH 30.7, MCHC 30.8 L, RDW 17.7 H, Plt Count 181, MPV 8.7, Neut % (Auto) 64.0, Lymph % (Auto) 26.3, [place] % (Auto) 5.8, Eos % (Auto) 3.3, Baso % (Auto) 0.6, Neut # (Auto) 2.7, Lymph # (Auto) 1.1, [place] # (Auto) 0.3, Eos # (Auto) 0.1, Baso # (Auto) 0.0, PT 14.8 H, INR 1.40 H, APTT 29.1, Sodium 140, Potassium 3.6, Chloride 112 H, Carbon Dioxide 29, Anion Gap 2.6 L, BUN 10, Creatinine 0.60 L, Estimated Creat Clear 128, Estimated GFR 143, Est GFR ( Amer) 173, Glucose 115 H, Calcium 8.7, Total Bilirubin 2.7 H, AST 65 H, ALT 35, Alkaline Phosphatase 253 H, Troponin I 0.04 H, NT-Pro-B Natriuret Pep 685 H, Total Protein 8.2, Albumin 2.6 L, Globulin 5.6 H, Albumin/Globulin Ratio 0.5 L, Lipase 44 Orders (Tests/Meds): ED MEDICATIONS Generic Name Dose Route Start Last Admin Trade Name Freq PRN Reason Stop Dose Admin Sodium Chloride 10 ml 11/27/23 13:13 Sodium Chloride 0.9% 10ml Flush Syringe IV 12/27/23 13:12 NEEDED PRN Maintain IV Site Sodium Chloride 10 ml 11/27/23 13:42 Sodium Chloride 0.9% 10ml Syr (Rad Only) IV 12/27/23 13:41 NEEDED PRN Maintain IV Site Discontinued Medications Generic Name Dose Route Start Last Admin Trade Name Freq PRN Reason Stop Dose Admin Albuterol/Ipratropium 9 ml 11/27/23 12:54 11/27/23 13:08 Ipratropium/Albuterol 3 Ml Neb IH 11/27/23 12:55 9 ml ONCE ONE Administration Iopamidol 165 ml 11/27/23 13:42 11/27/23 13:44 Iopamidol-370 (76%);100ml Bottle IV 11/27/23 13:43 165 ml ONCE ONE Administration Metoprolol Tartrate 5 mg 11/27/23 15:53 11/27/23 16:14 Metoprolol Tartrate 5mg/5ml Vial IV 11/27/23 15:54 5 mg ONCE ONE Administration Metoprolol Tartrate 5 mg 11/27/23 17:34 11/27/23 17:37 Metoprolol Tartrate 5mg/5ml Vial IV 11/27/23 17:35 5 mg ONCE ONE Administration Sodium Chloride 50 ml 11/27/23 13:42 11/27/23 13:44 0.9 % Sodium Chloride 50 Ml Vial IV 11/27/23 13:43 50 ml ONCE ONE Administration ORDERS Category Date Time Status CT abdomen pelvis w con Stat Cat Scan 11/27/23 12:[address] angio head Stat Cat Scan 11/27/23 12:[address] angio neck Stat Cat Scan 11/27/23 12:[address] head/brain wo con Stat Cat Scan 11/27/23 12:48 Completed Ammonia Stat Lab 11/27/23 18:19 Ordered BNP [NT Pro Brain Natriuretic Pep.] Stat Lab 11/27/23 Completed CBC w/Auto Diff [Complete Blood Count Auto Diff] Stat Lab 11/27/23 Completed CMP [Comprehensive Metabolic Panel] Stat Lab 11/27/23 Completed Lactic Acid Stat Lab 11/27/23 13:25 Completed Lipase Stat Lab 11/27/23 Completed PT INR [Prothrombin Time INR] Stat Lab 11/27/23 Completed PTT [Activated Partial Thrombo Time] Stat Lab 11/27/23 Completed Troponin I Q3H Lab 11/27/23 17:53 Received Troponin I Q3H Lab 11/27/23 20:15 Ordered Troponin I Stat Lab 11/27/23 Completed Urinalysis and Microscopic Stat Lab 11/27/23 15:49 Completed Medical Decision Narrative: 48-year-old male with past medical history significant for, hypertension, hyperlipidemia, diabetes, heart failure, COPD, history of substance use, atrial fibrillation, presents today for evaluation concerning word finding difficulty. He states that his symptoms have been present and intermittent over the past week. He denies any numbness, tingling, weakness, facial droop, difficulty swallowing. On assessment, he was medically stable and in no acute distress. Afebrile. Neurological exam was nonfocal. His speech was at his baseline however he stated that he was having difficulty finding which words he wanted to say. Chest clear to auscultation bilaterally. Abdomen soft and nondistended however was tender throughout. He stated that his tenderness has been present over the past week. Otherwise exam findings unremarkable. Differential diagnoses include not limited to CVA, TIA, dysrhythmia, electrolyte disturbance, SBP, among others. His lab workup today has been remarkable for a stable anemia with a hemoglobin of 10.7. Hematocrit of 34%. PT/INR 14.8/1.4. AST 65, alkaline phosphatase of 253. Initial troponin 0.04. BNP 685. I did order for CT imaging of the head and CTA head/neck. CT imaging of the head and CTA head/neck with no acute findings. He did not have any ascites noted on bedside ultrasound. CT imaging of the abdomen pelvis currently pending at this time. Patient was reassessed and remained medically stable and in no acute distress. He was able to converse with me without difficulty. Alert and oriented to person place time and situation. I discussed with him his current ED workup and current plan while awaiting CT results. Of note, patient's heart rate has been in the 120s-130s. He states that he is not on anticoagulation for his atrial fibrillation and does not know what medication he takes for rate control. On chart review, I did note that patient is on carvedilol 3.125 mg however no other beta-blockers. I did order for 5 mg of IV metoprolol to assist with rate control. At this time, care signed out to oncoming provider pending reassessment and CT imaging results. Also pending urinalysis. Patient at this time remains in no acute distress. Assessment 6:[address] Herring I took over from Dr. Navarrete. CT scans performed and interpreted by radiology which showed no acute abnormality. There is a small pleural effusion and some subcutaneous edema on the CT of the abdomen there is evidence of TIPS procedure clearly the patient has had decompensation in the past. I went and had examined the patient further he is awake alert oriented answering questions appropriately I do not know his baseline is possible he has some very mild hepatic encephalopathy his abdominal exam is very benign cannot definitively rule out SBP but this is unlikely. Patient was continuing to be in A-fib with RVR his heart rate has been going anywhere from 1 10-1 30s responded well to several doses of IV metoprolol he is only on low-dose of carvedilol. I spoke with Dr. Avinash Whyte for admission for rate control which he agreed with and patient was admitted for further evaluation and management of this. Critical Care <Khang Navarrete DO - Last Filed: 11/27/23 16:01> Critical Care Time Critical Care Time: No <Jeremie Herring MD - Last Filed: 11/27/23 18:24> Critical Care Time Critical Care Time: Yes Attestation: On 11/27/23, the high probability of a clinically significant, sudden or life threatening deterioration of the following system(s) required my full and direct attention, intervention and personal management. The time I documented below is in addition to time spent performing reported procedures but includes the following listed in this critical care notation. Total Time Total Critical Care Time: 35
[2023-11-27 14:48] LABS: Troponin I 0.04 ng/ml (0.00-0.034)
[2023-11-27 15:56] LABS: Microscopic, Urine URINE MICROSCOPIC (MICROSCOPIC)
[2023-11-27 15:59] LABS: Appearance,Urine CLEAR (Clear); Bilirubin,Urine Negative (Negative); Blood, Urine TRACE-I (Negative); Color,Urine YELLOW (Yellow); Glucose,Urine (UA) Negative (Negative); Ketones,Urine Negative (Negative); Leukocyte Esterase,Urine Negative (Negative); Nitrate,Urine Negative (Negative); Protein,Urine Negative (Negative); Specific Gravity, Urine 1.015 (1.005-1.030); Urobilinogen,Urine 0.2 EU/dl (0.2)
[2023-11-27] MEDS: METOPROLOL TARTRATE 5MG/5ML VIAL 5 MG IV ×2 (16:14→17:37)
[2023-11-27 17:21] LABS: RBC,Urine Occasional #/hpf (0-3); Squamous Epithelial Cell,Urine Occasional #/hpf (0-5)
--- NOTE | 2023-11-27 17:25 | PC.NURSE ---
Pt resting in bed. No needs voiced at this time. Call light within reach.
--- NOTE | 2023-11-27 18:07 | PC.NURSE ---
Pt provided with dinner tray
--- NOTE | 2023-11-27 18:22 | PC.NURSE ---
Bed request order placed, notified baggage agent supervisor of admission to Dr. Whyte
[2023-11-27 18:28] LABS: Troponin I 0.03 ng/ml (0.00-0.034)
[2023-11-27 18:33] LABS: Ammonia 62 umol/L (9-30)
--- NOTE | 2023-11-27 18:34 | PC.NURSE ---
report recieved from ER at this time
--- NOTE | 2023-11-27 18:38 | PC.NURSE ---
report called to paulina on second floor
--- NOTE | 2023-11-27 18:53 | PC.NURSE ---
pt arrived to [facility] @ [address]
[2023-11-27] MEDS: IPRATROPIUM/ALBUTEROL 3 ML NEB IH ×2 (19:33→23:05)
[2023-11-27 19:38] LABS: Adenovirus,PCR Not Detected (NotDetected); Coronavirus 19, PCR Not Detected (NotDetected); Coronavirus 229E Not Detected (NotDetected); Coronavirus NL63 Not Detected (NotDetected); Coronavirus OC43 Not Detected (NotDetected); Coronovirus HKU1,PCR Not Detected (NotDetected); Human Metapneumovirus Not Detected (NotDetected); Influenza A, PCR Not Detected (NotDetected); Influenza AH1, 2009 Not Detected (NotDetected); Influenza AH1, PCR Not Detected (NotDetected); Influenza AH3,PCR Not Detected (NotDetected); Influenza B, PCR Not Detected (NotDetected); Parainfluenza 1, PCR Not Detected (NotDetected); Parainfluenza 2, PCR Not Detected (NotDetected); Parainfluenza 3, PCR Not Detected (NotDetected); Parainfluenza 4, PCR Not Detected (NotDetected); Respiratory Syncytial Virus Not Detected (NotDetected); Rhinovirus/Enterovirus Not Detected (NotDetected)
[2023-11-27] MEDS: BUMETANIDE 1MG/4ML VIAL 1 MG IV (20:08)
[2023-11-27] MEDS: METOPROLOL TARTRATE 25MG TABLET 12.5 MG PO (20:09)
[2023-11-27] MEDS: LACTULOSE 20GM/30ML UDC 20 GM PO (20:10)
--- NOTE | 2023-11-27 20:18 | EXP.HP ---
History of Present Illness *Admission Date: 11/27/23 *Reason for visit:: AMS *History of present illness: This is a 48-year-old male with PMHx of cirrhosis, hypertension, hyperlipidemia, diabetes, heart failure, COPD, history of substance use, atrial fibrillation, presents today for evaluation concerning word finding difficulty, confusion and disorientation that have been present and intermittent over the past week. He denies any numbness, tingling, weakness, facial droop, difficulty swallowing. Denies any chest pain or shortness of breath. No further complaints on assessment. Admitted for further work up and treatment. [facility] Disclaimer: The information contained in this section may have been updated after the patient was seen, as this information can be updated by other users. Medical History Abnormal drug screen Acute exacerbation of chronic obstructive pulmonary disease Atrial fibrillation Chronic pain Cirrhosis COPD (chronic obstructive pulmonary disease) COPD (chronic obstructive pulmonary disease) COPD (chronic obstructive pulmonary disease) HFrEF (heart failure with reduced ejection fraction) Hypertension Left leg cellulitis Methamphetamine abuse Somnolence Tobacco abuse Urinary incontinence, overflow Venous stasis ulcers of both lower extremities Surgical History S/P TIPS (transjugular intrahepatic portosystemic shunt) Family History Other Heart disease Social History (Updated 11/27/23 @ 20:53 by Jud Valencia RN) Smoking Status: Former smoker tobacco type: smokeless tobacco second hand exposure: Yes alcohol intake: former substance use type: crack/cocaine and methamphetamine current occupational status: disabled Travel in the last 8 weeks: None household members: friend(s) housing: house current occupation: unknown current occupational exposures/hazards: No caffeine: Yes Review of Systems Review of Systems Review of systems:: pertinent systems reviewed and negative unless documented below Meds Home Medications and Allergies Home Medications Medication Instructions Recorded Confirmed Type carvedilol 3.125 mg tablet 3.125 mg PO BID 30 days #60 tabs 11/08/22 07/27/23 Rx furosemide 40 mg tablet 40 mg PO DAILY 30 days #30 tabs 11/08/22 07/27/23 Rx linezolid 600 mg tablet 600 mg PO BID 6 days #12 tabs 11/08/22 07/27/23 Rx albuterol sulfate 90 mcg/actuation 2 inh inhalation QID PRN Shortness 11/22/22 07/27/23 Rx aerosol inhaler (ProAir HFA) Of Breath #8.5 grams albuterol sulfate 1.25 mg/3 mL 1.25 mg (3 mL) inhalation TID 10 12/15/22 07/27/23 Rx solution for nebulization days #90 mL albuterol sulfate 90 mcg/actuation 1 inh inhalation Q6H PRN shortness 12/15/22 07/27/23 Rx aerosol inhaler of breath or wheezing #8.5 grams naloxone 4 mg/actuation nasal spray 1 spray intranasal ONCE 12/15/22 07/27/23 History gabapentin 600 mg tablet 600 mg PO BID 07/27/23 07/27/23 History lactulose 10 gram/15 mL oral 10 ml PO DAILY 07/27/23 07/27/23 History solution levofloxacin 750 mg tablet 750 mg PO DAILY #7 tabs 07/27/23 07/27/23 Rx mupirocin 2 % topical ointment 1 applic topical TID #22 grams 07/27/23 07/27/23 Rx New Prescriptions to Start Prescriptions: Allergies Allergy/AdvReac Type Severity Reaction Status Date / Time codeine Allergy Severe Anaphylaxis Verified 07/27/23 10:52 guaifenesin [From Mucinex] Allergy Severe SWELLS Verified 07/27/23 10:52 ketorolac [From Toradol] Allergy Severe Difficulty Verified 07/27/23 10:52 Swallowing sulfamethoxazole AdvReac Intermediate Rash Verified 07/27/23 10:52 [From Bactrim] trimethoprim [From Bactrim] AdvReac Intermediate Rash Verified 07/27/23 10:52 Exam Data for Last 24 hours Vital signs and Labs for Last 24 Hours: Temp Pulse Resp BP Pulse Ox O2 Del Method 99.8 F H 91 H 24 147/88 H 100 Room Air 11/27/23 18:57 11/27/23 19:34 11/27/23 18:57 11/27/23 18:57 11/27/23 18:57 11/27/23 18:57 Laboratory Results - last 24 hr 11/27/23 13:25: Sodium 140, Potassium 3.6, Chloride 112 H, Carbon Dioxide 29, Anion Gap 2.6 L, BUN 10, Creatinine 0.60 L, Estimated Creat Clear 128, Estimated GFR 143, Est GFR ( Amer) 173, Glucose 115 H, Lactate 1.4, Calcium 8.7, Total Bilirubin 2.7 H, AST 65 H, ALT 35, Alkaline Phosphatase 253 H, Troponin I 0.04 H, NT-Pro-B Natriuret Pep 685 H, Total Protein 8.2, Albumin 2.6 L, Globulin 5.6 H, Albumin/Globulin Ratio 0.5 L, Lipase 44 11/27/23 15:49: Urine Color Yellow, Urine Appearance Clear, Urine pH 8.0, Ur Specific [place] 1.015, Urine Protein Negative, Urine Glucose (UA) Negative, Urine Ketones Negative, Urine Blood Trace-i, Urine Nitrate Negative, Urine Bilirubin Negative, Urine Urobilinogen 0.2, Ur Leukocyte Esterase Negative, Urine RBC Occasional, Urine WBC None, Ur Squamous Epith Cells Occasional, Urine Bacteria None 11/27/23 17:53: Troponin I 0.03 11/27/23 18:15: Ammonia 62 H 11/27/23 : WBC 4.3 L, RBC 3.48 L, Hgb 10.7 L, Hct 34.7 L, MCV 99.8 H, MCH 30.7, MCHC 30.8 L, RDW 17.7 H, Plt Count 181, MPV 8.7, Neut % (Auto) 64.0, Lymph % (Auto) 26.3, [place] % (Auto) 5.8, Eos % (Auto) 3.3, Baso % (Auto) 0.6, Neut # (Auto) 2.7, Lymph # (Auto) 1.1, [place] # (Auto) 0.3, Eos # (Auto) 0.1, Baso # (Auto) 0.0, PT 14.8 H, INR 1.40 H, APTT 29.1 Temp Pulse Resp BP Pulse Ox 98.7 F 59 L 16 134/81 96 11/07/22 04:33 11/07/22 04:33 11/07/22 04:33 11/07/22 04:33 11/07/22 04:01 Laboratory Results - last 24 hr 11/07/22 00:45: WBC 10.4, RBC 3.70 L, Hgb 11.7 L, Hct 35.5 L, MCV 95.7 H, MCH 31.6 H, MCHC 33.0, RDW 16.5, Plt Count 81 L, MPV 8.6, Neut % (Auto) 89.6 H, Lymph % (Auto) 5.7 L, [place] % (Auto) 3.6, Eos % (Auto) 1.0, Baso % (Auto) 0.1, Neut # (Auto) 9.3 H, Lymph # (Auto) 0.6 L, [place] # (Auto) 0.4, Eos # (Auto) 0.1, Baso # (Auto) 0.0, Total Counted 100, Neutrophils % (Manual) 90 H, Band Neutrophils % 1.0, Lymphocytes % (Manual) 7 L, Monocytes % (Manual) 2, Platelet Estimate Moderate decrease, RBC Morphology Normal 11/07/22 00:45: Sodium 133 L, Potassium 3.6, Chloride 104, Carbon Dioxide 28, Anion Gap 4.6 L, BUN 10, Creatinine 0.60 L, Estimated Creat Clear 239, Estimated GFR 143, Est GFR ( Amer) 173, Glucose 93, Calcium 7.6 L, Total Bilirubin 2.6 H, AST 66 H, ALT 39, Alkaline Phosphatase 236 H, Troponin I 0.04 H, C-Reactive Protein 18.5 H, Total Protein 7.0, Albumin 2.8 L, Globulin 4.2 H, Albumin/Globulin Ratio 0.7 L 11/07/22 00:45: Lactate 1.2 11/07/22 00:45: ESR 26 H 11/07/22 01:02: SARS-CoV-2 (PCR) Not detected, Influenza A Untype (PCR) Not detected, Influenza Type B (PCR) Not detected 11/07/22 02:15: Urine Color Yellow, Urine Appearance Clear, Urine pH 8.0, Ur Specific [place] 1.010, Urine Protein Negative, Urine Glucose (UA) Negative, Urine Ketones Negative, Urine Blood Trace-l, Urine Nitrate Negative, Urine Bilirubin Negative, Urine Urobilinogen 4.0, Ur Leukocyte Esterase Negative, Urine RBC 3-5, Urine WBC None, Ur Squamous Epith Cells Occasional, Urine Bacteria None 11/07/22 02:15: Urine Opiates Screen Negative, Urine Methadone Screen Negative, Ur Barbituates Screen Negative, Ur Phencyclidine Scrn Negative, Ur Amphetamines Screen Positive H, U Benzodiazepines Scrn Negative, Urine Cocaine Screen Negative, U Marijuana (THC) Screen Negative I & O for Last 24 hours: Intake & Output 11/24/23 11/25/23 11/26/23 11/27/23 23:59 23:59 23:59 23:59 Weight 111.754 kg Intake & Output 11/04/22 11/05/22 11/06/22 11/07/22 23:59 23:59 23:59 23:59 Weight 113.398 kg Constitutional Constitutional: no acute distress *Routine HEENT Exam Head: Present normocephalic and atraumatic Eye: Present EOMI and PERRL ENT: Present mucous membranes dry *Routine Neck Exam Neck: Present supple and full ROM *Routine Respiratory Exam Respiratory: Present wheezes, crackles and normal respiratory effort *Routine Cardiovascular Exam Cardiovascular: Present RRR, Normal S1 and Normal S2 *Routine Abdominal Exam Abdominal: Present soft and normoactive bowel sounds *Routine Rectal Exam Rectal:: deferred *Routine Genitalia Exam Genitalia:: deferred *Routine Extremities Exam Extremities: Present edema *Routine Skin Exam Skin: Present wounds ( bilateral lower extremity) Comments: bilateral lower extremity left> right with chronic venous stasis ulcer disease with notable *Routine Neurological Exam Neurological: Present altered mental status H&P: Result Imaging and Cardiology EKG: Status: image reviewed by me, Preliminary report and final report CT scan - abdomen: Status: image reviewed by me, Preliminary report and final report CT scan - head: Status: image reviewed by me, Preliminary report and final report Assessment and Plan *Assessment and plan (1) Metabolic encephalopathy: Status: Acute Category: Medical Code(s): G93.41 - Metabolic encephalopathy (2) Atrial fibrillation with rapid ventricular response: Status: Acute Category: Medical Code(s): I48.91 - Unspecified atrial fibrillation (3) Cirrhosis: Status: Acute Qualifiers: Ascites presence: with ascites Hepatic cirrhosis type: unspecified hepatic cirrhosis Qualified Code(s): K74.60 - Unspecified cirrhosis of liver; R18.8 - Other ascites Category: Medical Code(s): K74.60 - Unspecified cirrhosis of liver (4) HFrEF (heart failure with reduced ejection fraction): Status: Acute Category: Medical Code(s): I50.20 - Unspecified systolic (congestive) heart failure (5) COPD (chronic obstructive pulmonary disease): Status: Chronic Qualifiers: COPD type: unspecified COPD Qualified Code(s): J44.9 - Chronic obstructive pulmonary disease, unspecified Category: Medical Code(s): J44.9 - Chronic obstructive pulmonary disease, unspecified (6) Hypertension: Status: Chronic Qualifiers: Hypertension type: primary hypertension Qualified Code(s): I10 - Essential (primary) hypertension Category: Medical Code(s): I10 - Essential (primary) hypertension (7) Venous stasis ulcers of both lower extremities: Status: Acute Category: Medical Code(s): I83.019 - Varicose veins of right lower extremity with ulcer of unspecified site; I83.029 - Varicose veins of left lower extremity with ulcer of unspecified site; L97.919 - Non-pressure chronic ulcer of unspecified part of right lower leg with unspecified severity; L97.929 - Non-pressure chronic ulcer of unspecified part of left lower leg with unspecified severity (8) Tobacco abuse: Status: Chronic Category: Medical Code(s): Z72.0 - Tobacco use Plan 48-year-old male with PMHx of cirrhosis, hypertension, hyperlipidemia, diabetes, heart failure, COPD, history of substance use, atrial fibrillation, presents today for evaluation concerning word finding difficulty, confusion and disorientation that have been present and intermittent over the past week. on arrival patient presented stable, non toxic appearance, symptoms have been improved. labs work are close to his baseline,. ammonia level of 62. CT of head was done o rule out acute stroke. Imaging reviewed. there are no acute event. severe atrophy. CT abd concerning of right pleural effusion. after reassessment patient continue to be on afib with RVR. Findings were discussed with ED. Agreed for admission for monitoring and management. Plan as follow: -Metabolic encephalopathy, secondary to cirrhosis of the liver, does not seen to be decompensated. Presented with confusion and disorientation. Improved. Atrial fib with slightly RVR. rate improved after metoprolol given Admit patient for medical services. Started on continuous monitoring per unit protocol. Monitor and repeat ammonia level Resume lactulose 20G twice daily Continue cardiac monitoring Cardiology consult. Appreciate their intake to optimize diuresis Patient has not been on any anticoagulants. He is Child-Puente class C/MELD 14 Discontinue home coreg, transition to Metoprolol 12.5mg PO bid, dose adjustment pending rate response. Repeat CMP,CBC, INR in morning Coagulopathy Inr 1.4, due to cirrhosis. -Other chronic conditions: COPD CHF COPD,hypertension: Condition reviewed. Stable at this point though wheezy on exam Resume home regimen. Duonebs scheduled q6hrs On Lasix Ulcer in both lower extremity: Suspected venous stasis Wound consult. May need compression Tobacco abuse: On nicotine patch Started on Eliquis. On Protonix Full code Rounded on patient prior to nurse practitioner. Personally examined and interviewed patient. Agree with exam findings and care plan as documented. Hold on anticoagulation due to Child-[place]ente class C status as it is recommended against by live study manager and no evidence to support use in severe cirrhosis. Defer decision to discussion with cardiology in morning, concern risks outweigh benefit. goal diuresis -2L daily for ascites and edema
[2023-11-27 20:50] LABS: Troponin I 0.02 ng/ml (0.00-0.034)
[2023-11-27] MEDS: APIXABAN 5MG TABLET 2.5 MG PO (21:05)
--- NOTE | 2023-11-27 21:15 | PC.WOUNDNOTE ---
Left lower extremity, wound #1 Left lower extremity, wound #2
--- NOTE | 2023-11-27 21:18 | PC.NURSE ---
Patient is unsure of home medications and has nobody to call to get a list.
[2023-11-28] VITALS (7 sets, daily range): BP systolic 144–180; BP diastolic 74–93; PULSE 67–84; RESP 18–24; TEMP 36.8–37.1; O2SAT 95–100; BMI 36.3
--- NOTE | 2023-11-28 05:02 | PC.NURSE ---
Addendum entered by Jud Valencia RN 11/28/23 05:28: 0400 cardiac strip shows controlled a.fib. Original Note: Pt is alert to self and situation. Pt has had no complaints since arriving to floor. Pt used urinal at the beginning of shift, then pt started using toilet independently, educated pt on use of urinal or hat to measure urine output. Wounds on left leg, covered with dressing, CDI. Pt was poor historian for admission purposes, completed to the best of this nurses ability. Wheezing lung sounds. 3+ pitting edema to bilateral lower extremity. Converted to NSR on tele. Call light in reach.
[2023-11-28] MEDS: MORPHINE 2MG/ML SYRINGE 2 MG IV (05:39)
[2023-11-28] MEDS: IPRATROPIUM/ALBUTEROL 3 ML NEB IH ×2 (06:10→13:33)
[2023-11-28 06:17] LABS: Chloride 114 mmol/L (98-107); Potassium 3.6 mmoL/L (3.5-5.1); Sodium 138 mmol/L (136-145)
[2023-11-28 06:20] LABS: Alanine Aminotransferase 27 U/L (12-78); Albumin Level 2.3 g/dl (3.5-5.0); Albumin/Globulin Ratio 0.5 (1.1-1.8); Alkaline Phosphatase 224 U/L (38-126); Anion Gap 1.6 mEq/L (5-15); Aspartate Amino Transferase 55 U/L (17-59); Bilirubin,Total 1.8 mg/dl (0.2-1.3); Blood Urea Nitrogen 10 mg/dl (9-20); Carbon Dioxide 26 mmol/L (22.0-30.0); Creatinine Clearance Estimated 232 mL/min (50-200); Estimated Glomerular Filt Rate 143 ml/min (>60); GFR (African American) 173 ML/MIN (>60); Glucose 98 mg/dl (74-100); Total Protein,Serum 7.3 g/dl (6.3-8.2)
[2023-11-28 06:21] LABS: Magnesium 1.6 mg/dl (1.6-2.3)
[2023-11-28 06:26] LABS: Basophils % 0.3 % (0.1-2.0); Eosinophils # 0.1 K/mm3 (0.0-0.4); Eosinophils % 2.9 % (0.1-12.0); Hematocrit 30.8 % (42.0-52.0); Lymphocytes # 1.1 K/mm3 (0.7-4.5); Lymphocytes % 29.1 % (10-50); Mean Corpuscular HGB Conc 30.5 g/dL (31.8-35.4); Mean Corpuscular Hemoglobin 30.1 pg (27.0-31.2); Mean Corpuscular Volume 98.6 fl (80-94); Mean Platelet Volume 8.4 fl (7.4-10.4); Monocytes # 0.3 K/mm3 (0.1-1.0); Monocytes % 7.8 % (1.7-9.3); Neutrophils # 2.3 K/mm3 (1.8-7.8); Neutrophils % 59.9 % (37.0-80.0); Platelet Count 163 K/mm3 (142-424); Red Blood Count 3.13 M/mm3 (4.60-6.20); Red Cell Distribution Width 17.6 % (11.5-17.5); White Blood Count 3.9 K/mm3 (4.8-10.8)
[2023-11-28 06:32] LABS: INR 1.44 (0.9-1.1); Prothrombin Time 15.2 seconds (10.1-12.5)
[2023-11-28 06:34] LABS: Hemoglobin 9.4 g/dL (14.1-18.0)
--- NOTE | 2023-11-28 07:46 | HMH.PHAINT1 ---
Pharmacy Intervention Comments: HOME MEDICATION LIST VERIFIED VIA OUTSIDE PHARMACY AND PATIENT
[2023-11-28] MEDS: METOPROLOL TARTRATE 25MG TABLET 25 MG PO (08:45)
[2023-11-28] MEDS: BUMETANIDE 1MG/4ML VIAL 1 MG IV (08:45)
[2023-11-28] MEDS: LACTULOSE 20GM/30ML UDC 20 GM PO (08:45)
--- NOTE | 2023-11-28 09:29 | XR_ITS ---
FINAL REPORT CLINICAL HISTORY: CHF, COPD COMPARISON: 11/21/2023 FINDINGS: SINGLE-VIEW CHEST There is mild cardiomegaly. The mediastinum is normal. Fluid is in the minor fissure. There are chronic changes at the bases. There is no pneumothorax. IMPRESSION: Chronic appearance of the chest with fluid in the minor fissure. Reviewed, Interpreted and Dictated by Joe Benavidez MD Transcribed by Alley Adair Authenticated and . [facility]
--- NOTE | 2023-11-28 09:37 | P.CONCA_ITS ---
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 Patient has ongoing meth use, states last use was several months ago. He has diagnosis of CHF on his chart but there are no specifics available, last echo was 2021 and was largely u nremarkable. Patient has COPD and ongoing tobacco use. He presented to the hospital yesterday with complaint of anomic aphasia x 1 week and was admitted with dx of metabolic encephalopathy. proBNP 600, INR 1.4, ammonia level 60, CTA head negative, 2D echo pending. He also has chronic lower extremity cellulitis with ulcerations. This morning patient had no trouble with conversation and has no questions or concerns about his heart for me. Telemetry shows sinus rhythm in the 80s with PVCs. [facility] Disclaimer: The information contained in this section may have been updated after the patient was seen, as this information can be updated by other users. Medical History Urinary incontinence, overflow Somnolence Acute exacerbation of chronic obstructive pulmonary disease Abnormal drug screen HFrEF (heart failure with reduced ejection fraction) COPD (chronic obstructive pulmonary disease) Methamphetamine abuse Venous stasis ulcers of both lower extremities Left leg cellulitis Atrial fibrillation Tobacco abuse COPD (chronic obstructive pulmonary disease) COPD (chronic obstructive pulmonary disease) Cirrhosis Chronic pain Hypertension Surgical History S/P TIPS (transjugular intrahepatic portosystemic shunt) Family History Other Heart disease Social History Smoking Status: Former smoker tobacco type: smokeless tobacco second hand exposure: Yes alcohol intake: former substance use type: crack/cocaine and methamphetamine current occupational status: disabled Travel in the last 8 weeks: None household members: friend(s) housing: house current occupation: unknown current occupational exposures/hazards: No caffeine: Yes Review of Systems Constitutional Constitutional: Denies fatigue and Denies weakness Eyes Eyes: Denies loss of vision ENT Ears, Nose, Mouth, and Throat: Denies hearing loss and Denies vertigo *Cardiovascular Cardiovascular: Denies chest pain, Denies dyspnea and Denies syncope *Respiratory Respiratory: Denies cough and Denies dyspnea *Gastrointestinal Gastrointestinal: Denies change in stool character, Denies nausea and Denies vomiting *Genitourinary Genitourinary: Denies difficulty urinating *Musculoskeletal Musculoskeletal: Denies muscle weakness Integumentary/Breasts Skin/Breast: Denies changing lesions *Neurologic Neurologic: Denies loss of vision, Denies syncope, Denies vertigo and Denies weakness Comments: Trouble with word finding Endocrine Endocrine: Denies fatigue Exam Data for Last 24 hours Vital signs and Labs for Last 24 Hours: Temp Pulse Resp BP Pulse Ox O2 Del Method 98.7 F 82 24 144/86 H 95 Room Air 11/28/23 08:00 11/28/23 08:00 11/28/23 08:00 11/28/23 08:00 11/28/23 08:00 11/28/23 09:00 Laboratory Results - last 24 hr 11/27/23 13:25: Sodium 140, Potassium 3.6, Chloride 112 H, Carbon Dioxide 29, Anion Gap 2.6 L, BUN 10, Creatinine 0.60 L, Estimated Creat Clear 128, Estimated GFR 143, Est GFR ( Amer) 173, Glucose 115 H, Lactate 1.4, Calcium 8.7, Total Bilirubin 2.7 H, AST 65 H, ALT 35, Alkaline Phosphatase 253 H, Troponin I 0.04 H, NT-Pro-B Natriuret Pep 685 H, Total Protein 8.2, Albumin 2.6 L, Globulin 5.6 H, Albumin/Globulin Ratio 0.5 L, Lipase 44 11/27/23 15:49: Urine Color Yellow, Urine Appearance Clear, Urine pH 8.0, Ur Specific [place] 1.015, Urine Protein Negative, Urine Glucose (UA) Negative, Urine Ketones Negative, Urine Blood Trace-i, Urine Nitrate Negative, Urine Bilirubin Negative, Urine Urobilinogen 0.2, Ur Leukocyte Esterase Negative, Urine RBC Occasional, Urine WBC None, Ur Squamous Epith Cells Occasional, Urine Bacteria None 11/27/23 17:53: Troponin I 0.03 11/27/23 18:15: Ammonia 62 H 11/27/23 19:30: Chlamy pneumoniae PCR TNP, Adenovirus (PCR) Not detected, B. pertussis DNA (PCR) TNP, Coronavirus OC43 (PCR) Not detected, Coronavirus HKU1 (PCR) Not detected, Coronavirus 229E (PCR) Not detected, SARS-CoV-2 (PCR) Not detected, Coronavirus NL63 (PCR) Not detected, Human Metapneumovir PCR Not detected, Influenza A (H1) PCR Not detected, Influ A (H1N1/09) PCR Not detected, Influenza A (H3) PCR Not detected, Influenza Type A (PCR) Not detected, Influenza Type B (PCR) Not detected, M. pneumoniae (PCR) TNP, Parainfluenza 1 (PCR) Not detected, Parainfluenza 2 (PCR) Not detected, Parainfluenza 3 (PCR) Not detected, Parainfluenza 4 (PCR) Not detected, RSV (PCR) Not detected, Entero/Rhino (PCR) Not detected 11/27/23 20:11: Troponin I 0.02 11/27/23 : WBC 4.3 L, RBC 3.48 L, Hgb 10.7 L, Hct 34.7 L, MCV 99.8 H, MCH 30.7, MCHC 30.8 L, RDW 17.7 H, Plt Count 181, MPV 8.7, Neut % (Auto) 64.0, Lymph % (Auto) 26.3, [place] % (Auto) 5.8, Eos % (Auto) 3.3, Baso % (Auto) 0.6, Neut # (Auto) 2.7, Lymph # (Auto) 1.1, [place] # (Auto) 0.3, Eos # (Auto) 0.1, Baso # (Auto) 0.0, PT 14.8 H, INR 1.40 H, APTT 29.1 11/28/23 05:25: WBC 3.9 L, RBC 3.13 L, Hgb 9.4 L D, Hct 30.8 L, MCV 98.6 H, MCH 30.1, MCHC 30.5 L, RDW 17.6 H, Plt Count 163, MPV 8.4, Neut % (Auto) 59.9, Lymph % (Auto) 29.1, [place] % (Auto) 7.8, Eos % (Auto) 2.9, Baso % (Auto) 0.3, Neut # (Auto) 2.3, Lymph # (Auto) 1.1, [place] # (Auto) 0.3, Eos # (Auto) 0.1, Baso # (Auto) 0.0, PT 15.2 H, INR 1.44 H, Sodium 138, Potassium 3.6, Chloride 114 H, Carbon Dioxide 26, Anion Gap 1.6 L, BUN 10, Creatinine 0.60 L, Estimated Creat Clear 232, Estimated GFR 143, Est GFR ( Amer) 173, Glucose 98, Calcium 8.0 L, Magnesium 1.6, Total Bilirubin 1.8 H, AST 55, ALT 27, Alkaline Phosph atase 224 H, Total Protein 7.3, Albumin 2.3 L D, Globulin 5.0 H, Albumin/Globulin Ratio 0.5 L I & O for Last 24 hours: Intake & Output 11/25/23 11/26/23 11/27/23 11/28/23 23:59 23:59 23:59 23:59 Intake Total 360 / 360 Output Total 575 / 575 425 / 425 Balance -575 / -575 -65 / -65 Weight 246 lb 6 oz 245 lb 1 oz Meds Home Medications and Allergies Home Medications Medication Instructions Recorded Confirmed Type albuterol sulfate 90 mcg/actuation 2 puff inhalation Q4-6H PRN 11/28/23 11/28/23 History aerosol inhaler Shortness Of Breath Or Wheezing lactulose 20 gram/30 mL oral 20 g (30 mL) PO BID 30 days #1,800 11/28/23 Rx solution mL metoprolol tartrate 25 mg tablet 25 mg PO BID 30 days #60 tabs 11/28/23 Rx oxycodone 5 mg tablet 5 mg PO Q6 PRN PAIN SCALE 4-6 SCORE 11/28/23 11/28/23 History New Prescriptions to Start Prescriptions: lactulose Walter,Irfan metoprolol tartrate Walter,Irfan Allergies Allergy/AdvReac Type Severity Reaction Status Date / Time codeine Allergy Severe Anaphylaxis Verified 07/27/23 10:52 guaifenesin [From Mucinex] Allergy Severe SWELLS Verified 07/27/23 10:52 ketorolac [From Toradol] Allergy Severe Difficulty Verified 07/27/23 10:52 Swallowing sulfamethoxazole AdvReac Intermediate Rash Verified 07/27/23 10:52 [From Bactrim] trimethoprim [From Bactrim] AdvReac Intermediate Rash Verified 07/27/23 10:52 Assessment and Plan *Assessment and plan (1) Metabolic encephalopathy: Status: Acute Category: Medical Code(s): G93.41 - Metabolic encephalopathy (2) Atrial fibrillation with rapid ventricular response: Status: Acute Category: Medical Code(s): I48.91 - Unspecified atrial fibrillation (3) Cirrhosis: Status: Acute Qualifiers: Ascites presence: with ascites Hepatic cirrhosis type: unspecified hepatic cirrhosis Qualified Code(s): K74.60 - Unspecified cirrhosis of liver; R18.8 - Other ascites Category: Medical Code(s): K74.60 - Unspecified cirrhosis of liver (4) HFrEF (heart failure with reduced ejection fraction): Status: Acute Category: Medical Code(s): I50.20 - Unspecified systolic (congestive) heart failure (5) COPD (chronic obstructive pulmonary disease): Status: Chronic Qualifiers: COPD type: unspecified COPD Qualified Code(s): J44.9 - Chronic obstructive pulmonary disease, unspecified Category: Medical Code(s): J44.9 - Chronic obstructive pulmonary disease, unspecified (6) Hypertension: Status: Chronic Qualifiers: Hypertension type: primary hypertension Qualified Code(s): I10 - Essential (primary) hypertension Category: Medical Code(s): I10 - Essential (primary) hypertension (7) Venous stasis ulcers of both lower extremities: Status: Acute Category: Medical Code(s): I83.019 - Varicose veins of right lower extremity with ulcer of unspecified site; I83.029 - Varicose veins of left lower extremity with ulcer of unspecified site; L97.919 - Non-pressure chronic ulcer of unspecified part of right lower leg with unspecified severity; L97.929 - Non-pressure chronic ulcer of unspecified part of left lower leg with unspecified severity (8) Tobacco abuse: Status: Chronic Category: Medical Code(s): Z72.0 - Tobacco use Plan A-fib, RVR -Known diagnosis, rate 130s on admission in the setting of metabolic encephalopathy -Patient is rate controlled and currently sinus rhythm on metoprolol 25 twice daily -He is auto anticoagulated with INR 1.4, he has history of hepatic stenting and hemoptysis, recommend no additional OAC at this time-risks outweigh benefits. I discussed this with patient who agrees. -Will check 2D echo due to history of CHF and elevated proBNP at 600 Bilateral lower extremity venous stasis with ulceration -Recommend volume management with diuretics -Referral to wound care Hereditary cirrhosis, Child-Puente Stage C, status post Tips stenting -Patient denies alcohol history, states his father and aunt also have liver issues -INR 1.4, Ammonia 60, AST/ALT nml -Defer management to primary service and outpatient Hepatology Illicit Substance Use -pt reports meth use as recently as a few months ago -denies ETOH hx -complicates all aspects of care, encouraged cessation COPD with Tob Use -mild wheezing -inhalers per primary service -tob cessation Metabolic Encephalopathy -seems to be resolving -plans per primary service 11/27 summary: Patient appears CV stable. Will check 2D echo and chest x-ray due to underlying history of CHF with elevated proBNP and lower extremity edema. If this is heart failure rather than just cirrhosis will make medication and outpatient follow-up recommendations accordingly. ADDENDUM: ECHO shows normal EF. mild AI. He has some RV dilation and Pulm Htn which appear chronic. No further IP CV intervention warranted at this time. Pt can discharge home from our standpoint but he should f/u with us in clinic 1-2 weeks.
--- NOTE | 2023-11-28 09:58 | [facility].PTWOUND ---
Rehab Inpt Wound Evaluation Rehab IP Wound Evaluation Start: 11/27/23 19:16 Freq: ONCE Status: Active Protocol: Document 11/28/23 09:51 MOSESSHARRON (Rec: 11/28/23 09:57 PHOBAIRON [id number]) Rehab PT Wound Assessment Subjective Subjective 48 yowm adm to [facility] with confusion and a-fib. He has PMHx of cirrhosis, hypertension, hyperlipidemia, diabetes, heart failure, COPD, history of substance use, atrial fibrillation. He presents with L anterior valero wounds on admission and has hx of cellulitis. Wound Left Lower Anterior Valero Wound Type Stasis Ulcer Is This a Chronic Wound Yes Wound Length (cm) 2.0 Wound Width (cm) 1.5 Wound Depth (cm) 0.1 Wound Bed Appearance [place],Yellow Wound Margins Description Well Defined Surrounding Tissue Appearance [place] Edema Type Non-Pitting Wound Drainage Description Serous Drainage Amount Small Wound Topical Solution/Irrigant Saline Irrigant Primary Dressing Non-Adherent Gauze Pad Wound Secondary Dressing Type Gauze Roll/Wrap,Adhering Gauze Roll Wound Debridement Method Gauze,Mechanical Wound Debridement Amount of Tissue Minimal Removed Dressing Change Patient Tolerance Tolerated Well Left Upper Anterior Valero Wound Type Stasis Ulcer Is This a Chronic Wound Yes Wound Length (cm) 3.0 Wound Width (cm) 2.0 Wound Depth (cm) 0.1 Wound Bed Appearance [place],Yellow Wound Margins Description Well Defined Surrounding Tissue Appearance [place] Edema Type Non-Pitting Wound Drainage Description Serous Drainage Amount Small Wound Topical Solution/Irrigant Saline Irrigant Primary Dressing Non-Adherent Gauze Pad Wound Secondary Dressing Type Gauze Roll/Wrap,Adhering Gauze Roll Wound Debridement Method Gauze,Mechanical Wound Debridement Amount of Tissue Minimal Removed Dressing Change Patient Tolerance Tolerated Well Plan/Recommendation Comment Pt has hx of chronic LE wounds and cellulitis. He is currently appropriate to return home with home health or outpatient wound care treatment as needed. No sharp excisional debridement necessary at this time. Eval Complexity Eval Charge Codes 35391 - High Complexity PHYSICIAN CERTIFICATION: I certify the specified therapy services for Vinod Ragland are required, authorized, and reviewed every 30 days.
--- NOTE | 2023-11-28 15:59 | EXP.DC.SUM ---
General Admission date:: 11/27/23 Discharge date: 11/28/23 HPI HPI HPI: This is a 48-year-old male with PMHx of cirrhosis, hypertension, hyperlipidemia, diabetes, heart failure, COPD, history of substance use, atrial fibrillation, presents today for evaluation concerning word finding difficulty, confusion and disorientation that have been present and intermittent over the past week. He denies any numbness, tingling, weakness, facial droop, difficulty swallowing. Denies any chest pain or shortness of breath. No further complaints on assessment. Admitted for further work up and treatment. Hospital Course Hospital Course Hospital Course: 48-year-old male with PMHx of cirrhosis, hypertension, hyperlipidemia, diabetes, heart failure, COPD, history of substance use, atrial fibrillation, presents today for evaluation concerning word finding difficulty, confusion and disorientation that have been present and intermittent over the past week. on arrival patient presented stable, non toxic appearance, symptoms have been improved. labs work are close to his baseline,. ammonia level of 62. CT of head was done o rule out acute stroke. Imaging reviewed. there are no acute event. severe atrophy. CT abd concerning of right pleural effusion. after reassessment patient continue to be on afib with RVR. Findings were discussed with ED. Agreed for admission for monitoring and management. Plan as follow: -Metabolic encephalopathy, secondary to cirrhosis of the liver, does not seen to be decompensated. - improved, mental status is now at baseline Presented with confusion and disorientation. Improved. Atrial fib with slightly RVR. rate improved after metoprolol given - stable, now rate controlled, evaluated by cardiology which recommended OP follow up. Exam Data for Last 24 hours Vital signs and Labs for Last 24 Hours: Temp Pulse Resp BP Pulse Ox O2 Del Method 98.8 F 84 18 154/74 H 99 Room Air 11/28/23 11:23 11/28/23 13:34 11/28/23 11:23 11/28/23 11:23 11/28/23 11:23 11/28/23 13:00 Laboratory Results - last 24 hr 11/27/23 13:25: Sodium 140, Potassium 3.6, Chloride 112 H, Carbon Dioxide 29, Anion Gap 2.6 L, BUN 10, Creatinine 0.60 L, Estimated Creat Clear 128, Estimated GFR 143, Est GFR ( Amer) 173, Glucose 115 H, Calcium 8.7, Total Bilirubin 2.7 H, AST 65 H, ALT 35, Alkaline Phosphatase 253 H, Troponin I 0.04 H, NT-Pro-B Natriuret Pep 685 H, Total Protein 8.2, Albumin 2.6 L, Globulin 5.6 H, Albumin/Globulin Ratio 0.5 L, Lipase 44 11/27/23 15:49: Urine Color Yellow, Urine Appearance Clear, Urine pH 8.0, Ur Specific [place] 1.015, Urine Protein Negative, Urine Glucose (UA) Negative, Urine Ketones Negative, Urine Blood Trace-i, Urine Nitrate Negative, Urine Bilirubin Negative, Urine Urobilinogen 0.2, Ur Leukocyte Esterase Negative, Urine RBC Occasional, Urine WBC None, Ur Squamous Epith Cells Occasional, Urine Bacteria None 11/27/23 17:53: Troponin I 0.03 11/27/23 18:15: Ammonia 62 H 11/27/23 19:30: Chlamy pneumoniae PCR TNP, Adenovirus (PCR) Not detected, B. pertussis DNA (PCR) TNP, Coronavirus OC43 (PCR) Not detected, Coronavirus HKU1 (PCR) Not detected, Coronavirus 229E (PCR) Not detected, SARS-CoV-2 (PCR) Not detected, Coronavirus NL63 (PCR) Not detected, Human Metapneumovir PCR Not detected, Influenza A (H1) PCR Not detected, Influ A (H1N1/09) PCR Not detected, Influenza A (H3) PCR Not detected, Influenza Type A (PCR) Not detected, Influenza Type B (PCR) Not detected, M. pneumoniae (PCR) TNP, Parainfluenza 1 (PCR) Not detected, Parainfluenza 2 (PCR) Not detected, Parainfluenza 3 (PCR) Not detected, Parainfluenza 4 (PCR) Not detected, RSV (PCR) Not detected, Entero/Rhino (PCR) Not detected 11/27/23 20:11: Troponin I 0.02 11/28/23 05:25: WBC 3.9 L, RBC 3.13 L, Hgb 9.4 L D, Hct 30.8 L, MCV 98.6 H, MCH 30.1, MCHC 30.5 L, RDW 17.6 H, Plt Count 163, MPV 8.4, Neut % (Auto) 59.9, Lymph % (Auto) 29.1, [place] % (Auto) 7.8, Eos % (Auto) 2.9, Baso % (Auto) 0.3, Neut # (Auto) 2.3, Lymph # (Auto) 1.1, [place] # (Auto) 0.3, Eos # (Auto) 0.1, Baso # (Auto) 0.0, PT 15.2 H, INR 1.44 H, Sodium 138, Potassium 3.6, Chloride 114 H, Carbon Dioxide 26, Anion Gap 1.6 L, BUN 10, Creatinine 0.60 L, Estimated Creat Clear 232, Estimated GFR 143, Est GFR ( Amer) 173, Glucose 98, Calcium 8.0 L, Magnesium 1.6, Total Bilirubin 1.8 H, AST 55, ALT 27, Alkaline Phosphatase 224 H, Total Protein 7.3, Albumin 2.3 L D, Globulin 5.0 H, Albumin/Globulin Ratio 0.5 L I & O for Last 24 hours: Intake & Output 11/25/23 11/26/23 11/27/23 11/28/23 23:59 23:59 23:59 23:59 Intake Total 360 / 360 Output Total 575 / 575 475 / 475 Balance -575 / -575 -115 / -115 Weight 111.754 kg 111.158 kg Constitutional Constitutional: no acute distress *Routine HEENT Exam Head: Present normocephalic Eye: Present EOMI and PERRL ENT: Present mucous membranes moist *Routine Neck Exam Neck: Present supple; Absent lymphadenopathy *Routine Respiratory Exam Respiratory: Present CTA bilaterally *Routine Cardiovascular Exam Cardiovascular: Present RRR *Routine Abdominal Exam Abdominal: Present soft and normoactive bowel sounds; Absent tenderness *Routine Extremities Exam Extremities: Absent cyanosis, clubbing or edema *Routine Skin Exam Skin: Present warm; Absent rash *Routine Neurological Exam Neurological: Present alert and oriented X3 Results Data Completed and Pending Labs on day of discharge: Labs from last 24 hours 11/28/23 11/27/23 11/27/23 05:25 20:11 19:30 WBC 3.9 L RBC 3.13 L Hgb 9.4 L D Hct 30.8 L MCV 98.6 H MCH 30.1 MCHC 30.5 L RDW 17.6 H Plt Count 163 MPV 8.4 Neut % (Auto) 59.9 Lymph % (Auto) 29.1 [place] % (Auto) 7.8 Eos % (Auto) 2.9 Baso % (Auto) 0.3 Neut # (Auto) 2.3 Lymph # (Auto) 1.1 [place] # (Auto) 0.3 Eos # (Auto) 0.1 Baso # (Auto) 0.0 PT 15.2 H INR 1.44 H Sodium 138 Potassium 3.6 Chloride 114 H Carbon Dioxide 26 Anion Gap 1.6 L BUN 10 Creatinine 0.60 L Estimated Creat Clear 232 Estimated GFR 143 Est GFR ( Amer) 173 Glucose 98 Calcium 8.0 L Magnesium 1.6 Total Bilirubin 1.8 H AST 55 ALT 27 Alkaline Phosphatase 224 H Ammonia Troponin I 0.02 NT-Pro-B Natriuret Pep Total Protein 7.3 Albumin 2.3 L D Globulin 5.0 H Albumin/Globulin Ratio 0.5 L Lipase Urine Color Urine Appearance Urine pH Ur Specific [place] Urine Protein Urine Glucose (UA) Urine Ketones Urine Blood Urine Nitrate Urine Bilirubin Urine Urobilinogen Ur Leukocyte Esterase Urine RBC Urine WBC Ur Squamous Epith Cells Urine Bacteria Chlamy pneumoniae PCR TNP Adenovirus (PCR) Not detected B. pertussis DNA (PCR) TNP Coronavirus OC43 (PCR) Not detected Coronavirus HKU1 (PCR) Not detected Coronavirus 229E (PCR) Not detected SARS-CoV-2 (PCR) Not detected Coronavirus NL63 (PCR) Not detected Human Metapneumovir PCR Not detected Influenza A (H1) PCR Not detected Influ A (H1N1/09) PCR Not detected Influenza A (H3) PCR Not detected Influenza Type A (PCR) Not detected Influenza Type B (PCR) Not detected M. pneumoniae (PCR) TNP Parainfluenza 1 (PCR) Not detected Parainfluenza 2 (PCR) Not detected Parainfluenza 3 (PCR) Not detected Parainfluenza 4 (PCR) Not detected RSV (PCR) Not detected Entero/Rhino (PCR) Not detected 11/27/23 11/27/23 11/27/23 18:15 17:53 15:49 WBC RBC Hgb Hct MCV MCH MCHC RDW Plt Count MPV Neut % (Auto) Lymph % (Auto) [place] % (Auto) Eos % (Auto) Baso % (Auto) Neut # (Auto) Lymph # (Auto) [place] # (Auto) Eos # (Auto) Baso # (Auto) PT INR Sodium Potassium Chloride Carbon Dioxide Anion Gap BUN Creatinine Estimated Creat Clear Estimated GFR Est GFR ( Amer) Glucose Calcium Magnesium Total Bilirubin AST ALT Alkaline Phosphatase Ammonia 62 H Troponin I 0.03 NT-Pro-B Natriuret Pep Total Protein Albumin Globulin Albumin/Globulin Ratio Lipase Urine Color Yellow Urine Appearance Clear Urine pH 8.0 Ur Specific [place] 1.015 Urine Protein Negative Urine Glucose (UA) Negative Urine Ketones Negative Urine Blood Trace-i Urine Nitrate Negative Urine Bilirubin Negative Urine Urobilinogen 0.2 Ur Leukocyte Esterase Negative Urine RBC Occasional Urine WBC None Ur Squamous Epith Cells Occasional Urine Bacteria None Chlamy pneumoniae PCR Adenovirus (PCR) B. pertussis DNA (PCR) Coronavirus OC43 (PCR) Coronavirus HKU1 (PCR) Coronavirus 229E (PCR) SARS-CoV-2 (PCR) Coronavirus NL63 (PCR) Human Metapneumovir PCR Influenza A (H1) PCR Influ A (H1N1/09) PCR Influenza A (H3) PCR Influenza Type A (PCR) Influenza Type B (PCR) M. pneumoniae (PCR) Parainfluenza 1 (PCR) Parainfluenza 2 (PCR) Parainfluenza 3 (PCR) Parainfluenza 4 (PCR) RSV (PCR) Entero/Rhino (PCR) 11/27/23 13:25 WBC RBC Hgb Hct MCV MCH MCHC RDW Plt Count MPV Neut % (Auto) Lymph % (Auto) [place] % (Auto) Eos % (Auto) Baso % (Auto) Neut # (Auto) Lymph # (Auto) [place] # (Auto) Eos # (Auto) Baso # (Auto) PT INR Sodium 140 Potassium 3.6 Chloride 112 H Carbon Dioxide 29 Anion Gap 2.6 L BUN 10 Creatinine 0.60 L Estimated Creat Clear 128 Estimated GFR 143 Est GFR ( Amer) 173 Glucose 115 H Calcium 8.7 Magnesium Total Bilirubin 2.7 H AST 65 H ALT 35 Alkaline Phosphatase 253 H Ammonia Troponin I 0.04 H NT-Pro-B Natriuret Pep 685 H Total Protein 8.2 Albumin 2.6 L Globulin 5.6 H Albumin/Globulin Ratio 0.5 L Lipase 44 Urine Color Urine Appearance Urine pH Ur Specific [place] Urine Protein Urine Glucose (UA) Urine Ketones Urine Blood Urine Nitrate Urine Bilirubin Urine Urobilinogen Ur Leukocyte Esterase Urine RBC Urine WBC Ur Squamous Epith Cells Urine Bacteria Chlamy pneumoniae PCR Adenovirus (PCR) B. pertussis DNA (PCR) Coronavirus OC43 (PCR) Coronavirus HKU1 (PCR) Coronavirus 229E (PCR) SARS-CoV-2 (PCR) Coronavirus NL63 (PCR) Human Metapneumovir PCR Influenza A (H1) PCR Influ A (H1N1/09) PCR Influenza A (H3) PCR Influenza Type A (PCR) Influenza Type B (PCR) M. pneumoniae (PCR) Parainfluenza 1 (PCR) Parainfluenza 2 (PCR) Parainfluenza 3 (PCR) Parainfluenza 4 (PCR) RSV (PCR) Entero/Rhino (PCR) DS: Diagnosis Discharge Diagnosis (1) Metabolic encephalopathy: Status: Acute Code(s): G93.41 - Metabolic encephalopathy (2) Atrial fibrillation with rapid ventricular response: Status: Acute Code(s): I48.91 - Unspecified atrial fibrillation (3) Cirrhosis: Status: Acute Code(s): K74.60 - Unspecified cirrhosis of liver Qualifiers: Ascites presence: with ascites Hepatic cirrhosis type: unspecified hepatic cirrhosis Qualified Code(s): K74.60 - Unspecified cirrhosis of liver; R18.8 - Other ascites (4) HFrEF (heart failure with reduced ejection fraction): Status: Acute Code(s): I50.20 - Unspecified systolic (congestive) heart failure (5) COPD (chronic obstructive pulmonary disease): Status: Chronic Code(s): J44.9 - Chronic obstructive pulmonary disease, unspecified Qualifiers: COPD type: unspecified COPD Qualified Code(s): J44.9 - Chronic obstructive pulmonary disease, unspecified (6) Hypertension: Status: Chronic Code(s): I10 - Essential (primary) hypertension Qualifiers: Hypertension type: primary hypertension Qualified Code(s): I10 - Essential (primary) hypertension (7) Venous stasis ulcers of both lower extremities: Status: Acute Code(s): I83.019 - Varicose veins of right lower extremity with ulcer of unspecified site; I83.029 - Varicose veins of left lower extremity with ulcer of unspecified site; L97.919 - Non-pressure chronic ulcer of unspecified part of right lower leg with unspecified severity; L97.929 - Non-pressure chronic ulcer of unspecified part of left lower leg with unspecified severity (8) Tobacco abuse: Status: Chronic Code(s): Z72.0 - Tobacco use Meds Home Medications and Allergies Home Medications Medication Instructions Recorded Confirmed Type albuterol sulfate 90 mcg/actuation 2 puff inhalation Q4-6H PRN 11/28/23 11/28/23 History aerosol inhaler Shortness Of Breath Or Wheezing lactulose 20 gram/30 mL oral 20 g (30 mL) PO BID 30 days #1,800 11/28/23 Rx solution mL metoprolol tartrate 25 mg tablet 25 mg PO BID 30 days #60 tabs 11/28/23 Rx oxycodone 5 mg tablet 5 mg PO Q6 PRN PAIN SCALE 4-6 SCORE 11/28/23 11/28/23 History New Prescriptions to Start Prescriptions: lactulose Walter,Irfan metoprolol tartrate Walter,Irfan Allergies Allergy/AdvReac Type Severity Reaction Status Date / Time codeine Allergy Severe Anaphylaxis Verified 07/27/23 10:52 guaifenesin [From Mucinex] Allergy Severe SWELLS Verified 07/27/23 10:52 ketorolac [From Toradol] Allergy Severe Difficulty Verified 07/27/23 10:52 Swallowing sulfamethoxazole AdvReac Intermediate Rash Verified 07/27/23 10:52 [From Bactrim] trimethoprim [From Bactrim] AdvReac Intermediate Rash Verified 07/27/23 10:52 Discharge Plan Disposition Patient Disposition: Home, Self-Care Condition: Good Follow up Plan Follow up with: Shukri Garza MD [Staff Physician] - 12/06/23 1:00 pm Darrel Downey MD [Staff Physician] - 12/06/23 2:30 pm Prescriptions/Medication Reconciliation: New metoprolol tartrate 25 mg Tablet 25 mg PO BID 30 Days Qty: 60 0RF lactulose 20 gram/30 mL Solution 20 g PO BID 30 Days Qty: 1800 0RF Continued albuterol sulfate 90 mcg/actuation HFA aerosol inhaler 2 puff INHALATION Q4-6H PRN (Reason: Shortness Of Breath Or Wheezing) Patient Comments: INHALE 2 PUFFS BY MOUTH EVERY 4 HOURS NEEDED FOR WHEEZING oxycodone 5 mg tablet 5 mg PO Q6 PRN (Reason: PAIN SCALE 4-6 SCORE) Patient Comments: take 1 Tablet BY MOUTH EVERY SIX HOURS NEEDED for MODERATE PAIN 4-6 PAIN SCALE Problem Reconciliation Problems Reviewed?: Yes Patient Discharge Instructions ACTIVITY: Ambulate as tolerated DIET: continue same diet Patient Instructions: DI for Atrial Fibrillation Providers Primary Care Provider: Provider,Referral Admit Provider: Vinicio Whyte Attending Provider: Vinicio Whyte
--- NOTE | 2023-11-28 18:40 | CA_ITS ---
APPROVED REPORT EXAM: Comprehensive 2D, Doppler, and color-flow Echocardiogram [employer]: Jaclyn Vaughn CRT Ht: 5 ft 8 in Wt: 245lbs BSA: 2.23 BP: 119/79 mmHg Indications: Congestive Heart Failure, COPD, Atrial Fibrillation, Diabetes, Hyperlipidemia, Hypertension/HDD, cirrhosis, substance abuse, pleural effusion, TIPS 2D Dimensions LA Volume 98.00 mL LA Volume Index 43.95 mL/m2 (M/F) 16-34 M-Mode Dimensions RVDd 4.25 cm (0.9-2.6) LA Diam 5.96 cm (1.9-4.0) LVDd 5.99 cm (3.5-5.7) LVDs 4.83 cm (3.5-5.7) IVSd 1.56 cm (0.6-1.1) PWd 0.85 cm (0.6-1.1) EF (Teich) 39.20% FS 19.40% EDV (Teich) 179.30 mL TAPSE 3.01 (<1.7) ESV (Teich) 109.10 mL LV Diastology MED A' 4.80 cm/s LAT A' 8.70 cm/s Aortic Valve AO Peak GR. 11.40 mmHg Pulmonary Valve PV Peak Velocity 254.0 (50-150 cm/s) Tricuspid Valve TR P. Velocity 324.00 cm/s RAP Estimate 10.00 mmHg RVSP 51.90 mmHg Left Ventricle The left ventricle is normal size. The left ventricular systolic function is normal. The left ventricular ejection fraction is within the normal range. There is normal left ventricular wall thickness. There is normal LV segmental wall motion. Diastolic function is indeterminate. LVEF is 55%. Right Ventricle Right ventricle is mildly dilated. The right ventricular systolic function is normal. Atria Left atrium is moderately dilated. Right atrium is mildly dilated. There is no Doppler evidence of interatrial shunt. Aortic Valve The aortic valve is mildly thickened. There is no aortic valvular stenosis. Mild aortic regurgitation. Mitral Valve The mitral valve is mildly thickened. No evidence of mitral valve stenosis. Mild mitral regurgitation. Tricuspid Valve The tricuspid valve leaflets are thin and pliable. Mild tricuspid regurgitation. RVSP is 32 mmHg + RA pressure. Pulmonic Valve The pulmonary valve is normal in structure. Mild pulmonic regurgitation. Great Vessels The aortic root is normal in size. The ascending aorta is not well visualized. The IVC is not well visualized. Pericardium There is no pericardial effusion. Other Information Study Quality: Technically Difficult Conclusion Technically difficult study due to poor accoustic windows. Normal biventricular systolic function. Mild RV dilation. Biatrial dilation. Mild AI, mild MR, mild TR, mild [place]. RVSP is 32 mmHg + RA pressure. Electronically signed by : Gaviota Whalen MD 12/02/2023 14:50:06
--- NOTE | 2023-11-30 10:36 | CARE MANAGER ---
Attempted to contact patient related to hospital discharge x 2. No VM option. MATT Armas
== END 2023-11-28 16:00 | disposition home or self-care (01) ==
LOC: ER 18:24 → 2ND 18:41 → ER 19:01
PROVIDERS: Emergency Medicine; Admitting Provider Internal Medicine Adolescent Medicine; Emergency Provider Student in an Organized Health Care Education/Training Program; Visit Provider Internal Medicine Adolescent Medicine
DX: G93.41 Metabolic encephalopathy (principal); I48.91 Unspecified atrial fibrillation; K74.69 Other cirrhosis of liver; R18.8 Other ascites; I50.22 Chronic systolic (congestive) heart failure; J44.9 Chronic obstructive pulmonary disease, unspecified; I11.0 Hypertensive heart disease with heart failure; I83.018 Varicose veins of right lower extremity with ulcer other part of lower leg; I83.028 Varicose veins of left lower extremity with ulcer other part of lower leg; Z87.891 Personal history of nicotine dependence; I27.20 Pulmonary hypertension, unspecified; Z79.899 Other long term (current) drug therapy
CPT/HCPCS: 36415; 70450; 70496; 70498; 71045; 74177; 80053; 81001; 82140; 83605; 83690; 83735; 83880; 84484; 85025; 85610; 85730; 87081; 87632; 87635; 93005; 93306; 94640; 99291; G0378; Q9967